=== PATIENT | male | born 1970 | race Caucasian/White ===

== ENCOUNTER 2016-08-30 23:33 | Inpatient (IN) | payer OTHER ==
[~2016-08-30] VITALS: Ht 180.3 cm; Wt 158.2 kg
[~2016-08-30 23:33] MED LIST: ALEN70TA2 PO; ASPI81TA28 PO; BUDE0.5S NEB; BUME1TAB PO; CITA20TA4 PO; DOCU100C31 PO; DOUNEB INH; FLM4 PO; FLUT1INH INH; FOLI1TAB7 PO; IPRA1AER2 INH; LOSA25TA18 PO; METH2.5T PO; OMEP20TA PO; POTA-335 PO; PRED10TA PO; SPIR25TA PO; TRIA3AER NAE; [UNRECOGNIZED DRUG - CODE] PO
[2016-08-31] VITALS (8 sets, daily range): BP systolic 107–136; BP diastolic 64–91; PULSE 78–94; TEMP 36.5–36.8; O2SAT 93–95; Ht 180.3 cm; Wt 158.2 kg
[2016-08-31] MEDS ORDERED: MoRPHine SULFATE 2 MG/ML CARP IV STA ×2 (01:09→02:09)
[2016-08-31] MEDS ORDERED: ONDANSETRON INJ 2 MG/ML 2 ML VIAL IV STA (01:09)
[2016-08-31] MEDS ORDERED: ALBUT/IPRATROP 3MG/0.5MG NEB 3 ML VIAL INH STA (01:09)
[2016-08-31] MEDS ORDERED: METHYLPREDNISOLONE IV 80 MG in SYRINGE 0 ML IV ONE (01:15)
[2016-08-31 01:21] LABS: BASO % 0.1 %; BASO ABS # 0.01 K/uL (0-0.2); COMPLETE YES; EOS % 1.6 %; HEMATOCRIT 39.9 % (42-52); IG% 0.3 %; LYMPH % 10.1 %; LYMPH ABS # 0.91 K/uL (1.2-3.4); MEAN CORPUSCULAR HEMOGLOBIN 27.2 pg (25-34); MEAN CORPUSCULAR HGB CONC 32.3 g/dl (32-36); MEAN PLATELET VOLUME 8.3 fL (7.4-10.4); MONO % 8.9 %; PLATELET COUNT 388 K/uL (130-400); RED BLOOD COUNT 4.75 M/uL (4.7-6.1); WHITE BLOOD COUNT 8.98 K/uL (4.8-10.8)
[2016-08-31 01:36] LABS: PARTIAL THROMBOPLASTIN RATIO 1.1; PROTHROMBIN TIME (PATIENT) 11.2 SECONDS (9.0-12.0)
[2016-08-31 01:39] LABS: BUN/CREATININE RATIO 14.9 (10-20); CREATININE 1.4 mg/dl (0.60-1.40); MAGNESIUM 2.4 mg/dl (1.8-2.4); POTASSIUM 3.2 mmol/L (3.5-5.1)
[2016-08-31 01:44] LABS: ALB/GLOB RATIO 0.9 (0.9-2); CKMB/CK RATIO 0.4 (0-3.0)
[2016-08-31 01:56] LABS: VEN BLD GAS O2 SATURATION 76.6 %
[2016-08-31] MEDS ORDERED: OPTIRAY 320 IV PRN (02:15)
[2016-08-31] MEDS ORDERED: POTA20TA13 PO (02:23)
[2016-08-31] MEDS ORDERED: PRD10 PO (02:23)
[2016-08-31] MEDS ORDERED: PLMINSR5 INH (02:23)
[2016-08-31] MEDS ORDERED: [UNRECOGNIZED DRUG - CODE] PO (02:23)
[2016-08-31] MEDS ORDERED: IPRASOL4 INH (02:23)
[2016-08-31] MEDS ORDERED: TRIA1SPR4 NAE (02:23)
[2016-08-31] MEDS ORDERED: CEFTRIAXONE SOD INJ 1 GM ADDVIAL IV STA (03:33)
[2016-08-31] MEDS ORDERED: LEVAQUIN 750MG / 150ML D5W IV STA (03:33)
[2016-08-31 03:59] LABS: URINE APPEARANCE CLEAR (CLEAR); URINE BILIRUBIN NEG (NEG); URINE COLOR YELLOW; URINE NITRITE NEG (NEG); URINE PH 6.5 (4.5-7.5); URINE SPECIFIC GRAVITY 1.043 (1.000-1.030); UROBILINOGEN NEG (NEG); ZZUR CULT IF INDIC CLEAN CATCH NO
[2016-08-31 04:00] LABS: MANUAL MICROSCOPIC REQUIRED? NO; REVIEW REQ? NO
--- NOTE | 2016-08-31 04:48 | History and Physical ---
History & Physical Date & Time of Service: Aug 31, 2016 at 04:48 . Chief Complaint: cough, right-sided chest / upper abdominal pain . Primary Care Physician: Andrzej Downing M.D. . History of Present Illness Source: patient, family, clinic records, hospital records 45-year-old male followed by Dr. Downing. Also followed by Pulmonary Medicine Service at [facility]. History of pulmonary sarcoidosis, sleep apnea on BiPAP, CHF, pulmonary blastomycosis, and other problems noted below. Developed sinus congestion and cough about 1 week ago. Cough productive of yellow sputum. Experiencing sweats, but no documented fever. No associated pharyngitis. Cough is severe. Tonight he experienced acute onset of right-sided chest versus right upper abdominal pain. . Past Medical/Surgical History Chronic Medical Problems: (1) CHF (congestive heart failure), NYHA class III Status: Chronic (2) Chronic respiratory failure Status: Chronic (3) Chronic right-sided congestive heart failure Status: Chronic (4) Chronic steroid use Status: Chronic (5) Depression Status: Chronic (6) Depression Status: Chronic (7) HTN (hypertension) Status: Chronic (8) HTN (hypertension) Status: Chronic (9) Hypoxemia requiring supplemental oxygen Status: Chronic (10) Immunocompromised, acquired Status: Chronic (11) Obesity Status: Chronic (12) ANGELES (obstructive sleep apnea) Status: Chronic (13) Oxygen dependent Permanent Comment: 2-4l via nc Status: Chronic (14) Pulmonary blastomycosis Status: Chronic (15) Pulmonary HTN Status: Chronic (16) Pulmonary hypertension Status: Chronic (17) Pulmonary sarcoidosis Status: Chronic (18) Right-sided heart failure Status: Chronic Surgical Problems: (1) Fingertip amputation Permanent Comment: TUFT AMPUTATION 1986 Status: Chronic (2) History of cardiac cath Status: Chronic (3) History of tympanostomy Status: Chronic (4) S/P cholecystectomy Status: Resolved (5) S/P Mohs surgery for basal cell carcinoma Status: Chronic (6) S/P tonsillectomy Status: Chronic Family History FATHER Hypercholesterolemia BROTHER Hypercholesterolemia GRANDFATHER Heart disease GRANDFATHER Heart disease Diabetes mellitus GRANDMOTHER Heart disease GRANDMOTHER Heart disease Diabetes mellitus UNCLE Sarcoidosis Social History Smoking Status: Never Smoker Alcohol Use: occasionally Drug Use: none Marital Status: single Housing status: lives alone Occupational Status: employed Immunizations History of Influenza Vaccine: Yes History of Tetanus Vaccine?: Yes Tetanus Immunization Date: Dec 24, 2010 History of Pneumococcal: Yes Pneumococcal Date: Apr 14, 2009 History of Hepatitis B Vaccine: No Multi-Drug Resistant Organisms History of MDRO: No Allergies Coded Allergies: Doxycycline (Verified Allergy, Severe, PEDRAZA, 08/31/16) Home Medications Scheduled Alendronate Sodium (Fosamax), 1 TAB PO WK Aspirin (Aspirin Ec), 81 MG PO DAILY Atovaquone (Mepron), 1,500 MG PO DAILY Budesonide (Pulmicort Respules 0.5MG/2ML), 2 ML INH BID Citalopram Hydrobromide (Citalopram Hydrobromide), 1 TAB PO DAILY Fluticasone Furoate-Vilanterol (Breo Ellipta), 1 INHA INH DAILY Folic Acid (Folvite), 1 MG PO DAILY Itraconazole (Sporanox), 300 MG PO BID Losartan Potassium (Cozaar), 25 MG PO DAILY Methotrexate Sodium (Methotrexate), 20 MG PO WK Omeprazole (Omeprazole), 1 TAB PO DAILY Potassium Chloride Microencaps (Potassium Chloride Er), 1 TAB PO DAILY Prednisone (Prednisone), 15 MG PO DAILY Spironolactone (Aldactone), 25 MG PO BID Tamsulosin HCl (Tamsulosin HCl), 0.4 MG PO DAILY Torsemide (Torsemide), 80 MG PO BID Scheduled PRN Docusate Sodium (Docusate Sodium), 100 MG PO BID PRN for Constipation Ipratropium-Albuterol (Combivent Respimat), 1 PUFFS INH Q6 PRN for SOB/Wheezing Ipratropium-Albuterol (Duoneb), 1 TREATMENT INH Q4H PRN for Shortness of Breath Triamcinolone Acetonide (Nasal (Nasacort Allergy 24Hr), 2 SPRAYS NILDA DAILY PRN for ALLERGIC REACTION Review of Systems Constitutional: + sweats, + weight loss, No fever Eyes: No diplopia ENT: + nasal symptoms, No sore throat Respiratory: + cough, + shortness of breath, + sputum, + wheezing Cardiovascular: + chest pain (as described in HPI), + edema (chronic) Abdomen: + GI bleeding, + diarrhea, + nausea, + pain (as described in HPI), + vomiting Musculoskeletal: No joint pain, No muscle pain Genitourinary - Male: No dysuria, No hematuria Endocrine: No excessive thirst, No excessive urination Hematologic / Lymphatic: + abnormal bleeding/bruising (bruises easily), No swollen lymph nodes Integumentary: No new/changing skin lesions, No rash Physical Exam Vital Signs Date Time Temp Pulse Resp B/P Pulse Ox O2 Delivery O2 Flow Rate FiO2 08/31/16 02:40 99 20 148/85 98 Room Air 08/31/16 01:52 93 08/31/16 01:39 96 Nasal Cannula 3.0 08/31/16 01:14 86 24 124/71 96 Nasal Cannula 3.0 08/31/16 01:10 96 Nasal Cannula 3.0 08/30/16 23:44 36.9 94 26 125/72 93 Nasal Cannula 3.0 General Appearance: + moderate distress, + obese Head: normocephalic, atraumatic, + pertinent finding (Cushingoid facies) Eyes: normal inspection, PERRL, EOMI, sclerae normal (conjunctivae pink) ENT: hearing grossly normal, pharynx normal Neck: supple, no adenopathy, thyroid normal, trachea midline, + pertinent finding (healed tracheostomy) Respiratory/Chest: + rhonchi (scattered), + wheezing (diffuse moderate) Cardiovascular: regular rate, rhythm, no gallop, no murmur, + pertinent finding (neck veins difficult to assess due to body habitus; 2-3+ pretibial edema) Abdomen/GI: normal bowel sounds, non tender, soft, no organomegaly, no pulsatile mass, + pertinent finding (exam limited due to obesity) Extremities/Musculoskelatal: no calf tenderness, + pedal edema, + pertinent finding (distal amputation left middle finger) Neurologic/Psych: 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 nml as tested (PERRL, EOMI), no motor/sensory deficits (motor strength grossly intact), alert, normal mood/affect, oriented x 3 Skin: normal color, warm/dry, no rash Lymphatic: no adenopathy Diagnostics Laboratory Results Results Past 24 Hours Test 08/31/16 00:50 08/31/16 01:25 08/31/16 01:32 08/31/16 01:49 Range/Units White Blood Count 8.98 4.8-10.8 K/uL Red Blood Count 4.75 4.7-6.1 M/uL Hemoglobin 12.9 14.0-18.0 g/dL Hematocrit 39.9 42-52 % Mean Corpuscular Volume 84.0 80-100 fL Mean Corpuscular Hemoglobin 27.2 25-34 pg Mean Corpuscular Hemoglobin Concent 32.3 32-36 g/dl Platelet Count 388 130-400 K/uL Mean Platelet Volume 8.3 7.4-10.4 fL Neutrophils (%) (Auto) 79.0 % Lymphocytes (%) (Auto) 10.1 % Monocytes (%) (Auto) 8.9 % Eosinophils (%) (Auto) 1.6 % Basophils (%) (Auto) 0.1 % Neutrophils # (Auto) 7.09 1.4-6.5 K/uL Lymphocytes # (Auto) 0.91 1.2-3.4 K/uL Monocytes # (Auto) 0.80 0.11-0.59 K/uL Eosinophils # (Auto) 0.14 0-0.5 K/uL Basophils # (Auto) 0.01 0-0.2 K/uL RDW Standard Deviation 59.6 36.4-46.3 fL RDW Coefficient of Variation 19.5 11.5-14.5 % Immature Granulocyte % (Auto) 0.3 % Immature Granulocyte # (Auto) 0.03 0.00-0.02 K/uL Prothrombin Time 11.2 9.0-12.0 SECONDS Prothromb Time International Ratio 1.0 0.9-1.1 Activated Partial Thromboplast Time 29.2 21.0-31.0 SECONDS Partial Thromboplastin Ratio 1.1 Sodium Level 139 136-145 mmol/L Potassium Level 3.2 3.5-5.1 mmol/L Chloride Level 96 98-107 mmol/L Carbon Dioxide Level 35 21-32 mmol/L Anion Gap 8.0 3-11 mmol/L Blood Urea Nitrogen 21 7-18 mg/dl Creatinine 1.40 0.60-1.40 mg/dl Est Creatinine Clear Calc Drug Dose 100.4 ml/min Estimated GFR () 69.3 Estimated GFR (Non- 59.8 BUN/Creatinine Ratio 14.9 10-20 Random Glucose 128 70-99 mg/dl Calcium Level 9.0 8.5-10.1 mg/dl Magnesium Level 2.4 1.8-2.4 mg/dl Total Bilirubin 0.5 0.2-1 mg/dl Aspartate Amino Transf (AST/SGOT) 40 15-37 U/L Alanine Aminotransferase (ALT/SGPT) 86 12-78 U/L Alkaline Phosphatase 49 45-117 U/L Total Creatine Kinase 433 39-308 U/L Creatine Kinase MB 1.6 0.5-3.6 ng/ml Creatine Kinase MB Ratio 0.4 0-3.0 Total Protein 8.0 6.4-8.2 gm/dl Albumin 3.7 3.4-5.0 gm/dl Globulin 4.3 2.5-4.0 gm/dl Albumin/Globulin Ratio 0.9 0.9-2 Lipase 163 73-393 U/L Bedside Troponin I 0.000 0-0.045 ng/ml [id number] Natriuretic Peptide 85 0-450 pg/ml Venous Blood pH 7.46 7.36-7.41 Venous Blood Partial Pressure CO2 53 38.0-50.0 mmHg Venous Blood Partial Pressure O2 44 mmHg Venous Blood HCO3 37 mmol/L Venous Blood Oxygen Saturation 76.6 % Venous Blood Base Excess 11.0 mmol/L Bedside Lactic Acid Venous 1.72 0.90-1.70 mmol/L Test 08/31/16 03:50 Range/Units Urine Color YELLOW Urine Appearance CLEAR CLEAR Urine pH 6.5 4.5-7.5 Urine Specific [place] 1.043 1.000-1.030 Urine Protein NEG NEG Urine Glucose (UA) NEG NEG Urine Ketones NEG NEG Urine Occult Blood TRACE NEG Urine Nitrite NEG NEG Urine Bilirubin NEG NEG Urine Urobilinogen NEG NEG Urine Leukocyte Esterase TRACE NEG Urine WBC (Auto) 1-5 0-5 /hpf Urine RBC (Auto) 5-10 0-4 /hpf Urine Hyaline Casts (Auto) 0 0-5 /lpf Urine Epithelial Cells (Auto) 5-10 0-5 /lpf Urine Bacteria (Auto) NEG NEG Microbiology Results 08/31/16 Blood Culture, Received Pending 08/31/16 Blood Culture, Received Pending Diagnostic Radiology CHEST ONE VIEW PORTABLE CLINICAL HISTORY: cough/Pain COMPARISON STUDY: 01/17/2016 FINDINGS: The heart remains enlarged. Interstitial point fibrotic changes are again evident. There is blunting of the lateral costophrenic angles. There is persistent pleural thickening. A triangular appearance of the right hilum remains stable.[ There is an opacity at the right medial lung base, likely representing a focal eventration or prominent fat pad. IMPRESSION: Cardiomegaly and persistent underlying interstitial lung disease. Persistent bilateral pleural thickening. Electronically signed by: Josafat Desir M.D. 08/31/2016 6:[address] ANGIOGRAPHY OF THE CHEST, PULMONARY EMBOLUS PROTOCOL CLINICAL HISTORY: Right anterior rib pain. History of sarcoidosis. COMPARISON STUDY: Chest CT July 19, 2014 and chest radiograph performed earlier today. TECHNIQUE: Following IV administration of 118 mL of Optiray-320, helical axial images of the chest were obtained utilizing the pulmonary embolus protocol. Maximal intensity projections and sagittal and coronal reformats were viewed on an independent 3D workstation. IV contrast was administered without complication. CT DOSE: 1008.25 mGy.cm FINDINGS: Evaluation of the pulmonary arteries is significantly compromised due to artifact on this exam. There is no central pulmonary embolus. The heart is mildly enlarged. There is no pericardial effusion. Numerous calcified mediastinal and bilateral hilar lymph nodes are present. These were shown on prior CT of July 19, 2014. A small left pleural effusion is decreased in size. A trace right pleural effusion has slightly decreased in size as well. There is a trace right pneumothorax. There are multiple old right-sided rib fractures. No acute rib fractures are identified. Innumerable ill-defined pulmonary nodules are noted. These are decreased in size and number since exam of March 18, 2015. Distortion within the lungs is noted. There is mucus or debris within the dependent aspect of the trachea and mainstem bronchi. There is no central obstructing mass. There is no left pneumothorax. No suspicious osseous lesions are present. There is fatty infiltration of the liver. A gallstone is noted within the gallbladder. IMPRESSION: 1. No central or lobar pulmonary embolus. The remainder of the pulmonary arteries are suboptimally assessed due to artifact. 2. Trace right pneumothorax. Multiple old right-sided rib fractures. No acute rib fractures identified within visualized ribs. 3. Innumerable ill-defined pulmonary nodules which have significantly improved since exam of July 19, 2014. Numerous calcified mediastinal and hilar lymph nodes. The findings are consistent with the history of sarcoidosis. 4. Fatty liver. 5. Cholelithiasis. 6. Mild bilateral pleural effusions, improved since exam of July 19, 2014. Electronically signed by: Matthew Crook M.D. 08/31/2016 7:45 AM BILIARY ULTRASOUND CLINICAL HISTORY: Right upper quadrant abdominal pain COMPARISON STUDY: 01/16/2016 FINDINGS: The pancreas was nonvisualized. The liver is of increased echogenicity, a nonspecific finding most often seen in hepatic steatosis. There is no right-sided hydronephrosis. There is a 2 cm shadowing gallstone. There is no gallbladder wall thickening. There is no pericholecystic fluid. There is no ductal dilatation. The common bile duct measures 5.5 mm. IMPRESSION: 1. Cholelithiasis. No evidence of ductal dilatation 2. Increased hepatic echogenicity, likely secondary to hepatic steatosis. Mild hepatomegaly. 3. Nonvisualization the pancreas . Electronically signed by: Josafat Desir M.D. 08/31/2016 9:58 AM . EKG EKG performed at 01:39 reviewed and demonstrated normal sinus rhythm at 80/ minute, QTC 464 ms, no acute ST or T-wave abnormalities. . Impression Assessment and Plan CHEST PAIN / PNEUMOTHORAX Acute onset of severe right-sided chest pain preceded by severe coughing. CT of chest shows small right pneumothorax, no acute rib fractures, no pulmonary embolism. Consult Pulmonary Medicine re: pneumothorax. Hold BiPAP pending Pulmonary Medicine input. Analgesics when necessary. Incentive spirometry. ? RUQ PAIN Patient describes his pain as right chest versus right infracostal. CT and ultrasound demonstrated cholelithiasis without apparent biliary tract obstruction. Transaminases are slightly elevated, nonspecific. Bilirubin and alkaline phosphatase are normal. Management of pneumothorax as discussed above. Follow. COUGH Productive cough. Apparent sinusitis + lower respiratory tract infection. Difficult to determine whether or not there any superimposed infiltrates with underlying chronic radiographic abnormalities due to sarcoidosis. Blood cultures obtained in ED. Check sputum Gram stain and culture. Levofloxacin started a few days prior to admission and will be continued. QTC is slightly prolonged and will be monitored with daily EKGs. Add piperacillin/tazobactam for broader coverage. BRONCHOSPASM IV methylprednisolone with transition back to usual maintenance dose of prednisone. Continue usual nebs. SARCOIDOSIS Steroid management as noted above. Hold methotrexate in light of acute infection. CHF Echo in January 2016 demonstrated LVEF 60-65%. Probably has combination of chronic left ventricular diastolic heart failure as well as right-sided heart failure. Difficult to assess for pulmonary edema in light of underlying chronic lung disease. Continue usual dose of torsemide and spironolactone. SLEEP APNEA / PROBABLE OBESITY HYPOVENTILATION SYNDROME Management with BiPAP at home. Will hold BiPAP in light of pneumothorax pending Pulmonary Medicine input. PULMONARY BLASTOMYCOSIS Continue itraconazole. PCP PROPHYLAXIS Immunosuppressed secondary to glucocorticoid and methotrexate therapy. Continue atovaquone. HYPOKALEMIA Serum potassium 3.2. Replace. Follow. VTE PROPHYLAXIS High risk for VTE. SQ enoxaparin. Ambulate. RESUSCITATION STATUS Full code. DISPOSITION Admit to Telemetry Unit. Expected discharge to home. Family Medicine follow-up with Dr. Downing. . VTE Prophylaxis Risk Level: Moderate Given or contraindicated: Enoxaparin (Lovenox)SQ
[2016-08-31] MEDS ORDERED: ACETAMINOPHEN 325 MG TAB PO PRN (05:00)
[2016-08-31] MEDS ORDERED: DOCUSATE SODIUM 100 MG CAP PO PRN (05:00)
[2016-08-31] MEDS ORDERED: ALBUT/IPRATROP 3MG/0.5MG NEB 3 ML VIAL INH PRN (05:00)
[2016-08-31] MEDS ORDERED: HYDROmorphone INJ 1 MG/ML SYR IV PRN (05:15)
[2016-08-31] MEDS ORDERED: BENZONATATE 100MG CAP PO PRN (05:15)
--- NOTE | 2016-08-31 06:50 | DIAGNOSTIC IMAGING REPORT ---
CHEST ONE VIEW PORTABLE CLINICAL HISTORY: cough/Pain COMPARISON STUDY: 01/17/2016 FINDINGS: The heart remains enlarged. Interstitial point fibrotic changes are again evident. There is blunting of the lateral costophrenic angles. There is persistent pleural thickening. A triangular appearance of the right hilum remains stable.[ There is an opacity at the right medial lung base, likely representing a focal eventration or prominent fat pad. IMPRESSION: Cardiomegaly and persistent underlying interstitial lung disease. Persistent bilateral pleural thickening. Electronically signed by: Josafat Desir M.D. 08/31/2016 6:48 AM Dictated Date/Time: 08/31/2016 6:46 AM
--- NOTE | 2016-08-31 07:46 | DIAGNOSTIC IMAGING REPORT ---
CT ANGIOGRAPHY OF THE CHEST, PULMONARY EMBOLUS PROTOCOL CLINICAL HISTORY: Right anterior rib pain. History of sarcoidosis. COMPARISON STUDY: Chest CT July 19, 2014 and chest radiograph performed earlier today. TECHNIQUE: Following IV administration of 118 mL of Optiray-320, helical axial images of the chest were obtained utilizing the pulmonary embolus protocol. Maximal intensity projections and sagittal and coronal reformats were viewed on an independent 3D workstation. IV contrast was administered without complication. CT DOSE: 1008.25 mGy.cm FINDINGS: Evaluation of the pulmonary arteries is significantly compromised due to artifact on this exam. There is no central pulmonary embolus. The heart is mildly enlarged. There is no pericardial effusion. Numerous calcified mediastinal and bilateral hilar lymph nodes are present. These were shown on prior CT of July 19, 2014. A small left pleural effusion is decreased in size. A trace right pleural effusion has slightly decreased in size as well. There is a trace right pneumothorax. There are multiple old right-sided rib fractures. No acute rib fractures are identified. Innumerable ill-defined pulmonary nodules are noted. These are decreased in size and number since exam of March 18, 2015. Distortion within the lungs is noted. There is mucus or debris within the dependent aspect of the trachea and mainstem bronchi. There is no central obstructing mass. There is no left pneumothorax. No suspicious osseous lesions are present. There is fatty infiltration of the liver. A gallstone is noted within the gallbladder. IMPRESSION: 1. No central or lobar pulmonary embolus. The remainder of the pulmonary arteries are suboptimally assessed due to artifact. 2. Trace right pneumothorax. Multiple old right-sided rib fractures. No acute rib fractures identified within visualized ribs. 3. Innumerable ill-defined pulmonary nodules which have significantly improved since exam of July 19, 2014. Numerous calcified mediastinal and hilar lymph nodes. The findings are consistent with the history of sarcoidosis. 4. Fatty liver. 5. Cholelithiasis. 6. Mild bilateral pleural effusions, improved since exam of July 19, 2014. Electronically signed by: Matthew Crook M.D. 08/31/2016 7:45 AM Dictated Date/Time: 08/31/2016 7:32 AM
[2016-08-31] MEDS: BUDESONIDE 0.5 MG/2 ML VIAL (PULMICORT) INH SCH ×2 (08:00→20:42)
[2016-08-31] MEDS: SPIRONOLACTONE 25 MG TAB PO SCH ×2 (08:34→15:42)
[2016-08-31] MEDS: ASPIRIN 81 MG ECTAB PO SCH (08:35)
[2016-08-31] MEDS: GUAIFENESIN 600 MG TABCR PO SCH ×2 (08:35→19:29)
[2016-08-31] MEDS: CITALOPRAM 20 MG TAB PO SCH (08:35)
[2016-08-31] MEDS: TAMSULOSIN HCL 0.4 MG CAP PO SCH (08:35)
[2016-08-31] MEDS: POTASSIUM CHLORIDE 20 MEQ TABCR PO SCH (08:35)
[2016-08-31] MEDS: PANTOprazole SOD 40 MG TAB PO SCH (08:36)
[2016-08-31] MEDS: OXYCODONE HCL IR 5 MG TAB (IMMEDIATE RELEASE) PO PRN ×3 (08:40→22:00)
[2016-08-31] MEDS ORDERED: LOSARTAN POTASSIUM 25 MG TAB PO SCH (09:00)
--- NOTE | 2016-08-31 10:00 | DIAGNOSTIC IMAGING REPORT ---
BILIARY ULTRASOUND CLINICAL HISTORY: Right upper quadrant abdominal pain COMPARISON STUDY: 01/16/2016 FINDINGS: The pancreas was nonvisualized. The liver is of increased echogenicity, a nonspecific finding most often seen in hepatic steatosis. There is no right-sided hydronephrosis. There is a 2 cm shadowing gallstone. There is no gallbladder wall thickening. There is no pericholecystic fluid. There is no ductal dilatation. The common bile duct measures 5.5 mm. IMPRESSION: 1. Cholelithiasis. No evidence of ductal dilatation 2. Increased hepatic echogenicity, likely secondary to hepatic steatosis. Mild hepatomegaly. 3. Nonvisualization the pancreas Electronically signed by: Josafat Desir M.D. 08/31/2016 9:58 AM Dictated Date/Time: 08/31/2016 9:56 AM
[2016-08-31] MEDS ORDERED: DMD20 PO (13:29)
[2016-08-31] MEDS ORDERED: [UNRECOGNIZED DRUG - OTHER] PO (13:29)
[2016-08-31] MEDS: METHYLPREDNISOLONE IV 20 MG in SYRINGE 0 ML IV SCH ×2 (13:48→21:43)
[2016-08-31] MEDS ORDERED: POTASSIUM CHLORIDE 10 MEQ TABCR PO STA (13:50)
--- NOTE | 2016-08-31 14:30 | PULMONARY CONSULTATION ---
DATE OF CONSULTATION: 08/31/2016 TIME: 01:30 p.m. REPORT OF CONSULTATION: The patient was seen in room 286 bed 2. He is a 45-year-old male who has a chief complaint of pain in the right lateral chest. The pain developed approximately 4 days ago. It became progressively worse. The pain was located in the right lower chest or upper abdominal regions. It seems to radiate around towards the back. He denied any trauma when I spoke with him initially. Subsequently, however, he mentioned that about 2 weeks ago, he was heading into was bathroom and he had somewhat of a stumble. He fell against the entrance way to the bathroom. He struck his right arm. It was enough of below that he developed a modest amount of ecchymosis in the right upper arm despite the fact that he is a large man himself. He does not recall having any pain or anything at that time. Along with the pain, he has had worsening shortness of breath. He has been getting treated for the past week or 2 with a sinus infection. Levaquin was started 5 days ago. His cough has been severe. Sometimes, it is productive. The cough and the pain together were making him very short of breath. He ultimately went to the Emergency Room late last evening. He was in the ER for many hours because there were no beds. The patient had a chest x-ray done that reported cardiomegaly with persistent underlying interstitial disease and pleural thickening. He had a CAT scan of the chest done to rule out pulmonary emboli. There was no evidence of any pulmonary emboli, although the study was perhaps limited somewhat. There was a trace right pneumothorax. Multiple old right-sided rib fractures were noted. The radiologist did not believe there were any acute rib fractures. There were innumerable nodules, which have improved since a prior scan done on 07/19/2014. Numerous calcified mediastinal and hilar lymph nodes were present compatible with sarcoidosis that he is known to have Pleural thickening or pleural effusions was noted. The patient carries a diagnosis of sarcoidosis made in 2008. He was initially treated with prednisone. Subsequently, he was treated with some immunosuppressive agent. He had been on methotrexate for a while and then that was replaced with Remicade. In 2014, the patient became very ill. He was hospitalized at [facility]. He had respiratory failure and was on the ventilator. He had to have a tracheostomy and PEG tube insertion. He was found to ultimately have blastomycosis and he had been treated with itraconazole. After discharged from [facility], he went to [facility] in [facility]. He was there for about 4 weeks. He ultimately was decannulated and had a PEG tube removed. The patient remains on prednisone 15 mg per day and he takes a relatively small bit methotrexate for the sarcoid. For the most part that has been reasonably stable for the past year or so. PAST SURGICAL HISTORY: 1. Open lung biopsy. 2. Tracheostomy. 3. PEG tube insertion. 4. Fingertip amputation. PAST MEDICAL HISTORY: 1. Hypertension. 2. Congestive heart failure. 3. Chronic respiratory failure. 4. Depression. 5. Obesity. 6. Pulmonary hypertension. 7. C. diff infection. 8. Sleep apnea as noted. 9. Sarcoidosis as noted. 10. Blastomycosis as noted. SOCIAL HISTORY: Tobacco never. ETOH -- occasional. ALLERGIES: DOXYCYCLINE. FAMILY HISTORY: Mother and she was killed by homicide. Father, living at age 70, has coronary artery disease. There is a maternal uncle, who has sarcoidosis. OCCUPATIONAL HISTORY: The patient has been on disability for about 4 years. 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 REVIEW OF SYSTEMS: The patient's energy level is relatively low. He does wear BiPAP nightly. He denies syncope or near syncope. He has been having nasal congestion and postnasal drip. This was attributed to his sinus infection. He denies any nausea or vomiting. He is not having any bowel problems. He has had this chest pain and the upper abdominal pain as mentioned. He denies any urinary symptoms. He has noticed edema recently. There have been no rashes. No lymph nodes have been present. The remainder of the review of systems is negative. Ten systems were reviewed. PHYSICAL EXAMINATION: GENERAL: Mr. Pugh is a pleasant 45-year-old male who was cooperative, alert and oriented. He looks mildly uncomfortable. VITAL SIGNS: Weight is 156.3 kilograms for a BMI of 48.1. He appears cushingoid. HEENT: Pupils were reactive. Nares were mildly congested. Mouth exam revealed a Mallampati grade 3 pharynx. NECK: He has a large neck. No lymph nodes were palpable. CHEST: Showed somewhat diminished excursions. I was pushing on the chest laterally on the right, trying to find the focal site of pain, but did not find any specifically focal area. LUNGS: Lung moser reveal some wheeze, greater on the left than the right. The respiratory rate was 20 breaths per minute. HEART: Rate was 78. It was regular. Blood pressure 134/88. Saturation was 95% on 3 liters. ABDOMEN: Markedly obese. Bowel sounds were present, but diminished. There was no tenderness to palpation. No definite mass was palpable. The patient was examined in the mostly upright position because he is uncomfortable lying back. EXTREMITIES: Revealed +2 edema of both lower extremities. There was evidence of prior partial amputation of one of his fingers. There was no cyanosis or clubbing. LABORATORY DATA: White count is 8.98. Hemoglobin 12.9. Platelets 388,000. Coags were normal. Urinalysis showed trace leukocyte esterase, trace occult blood, and 5-10 RBCs. Venous blood gas done early this morning showed a pH of 7.46 with a pCO2 of 53 and a pO2 of 44. Electrolytes show sodium 139, potassium 3.2, chloride 96, and bicarbonate 35. BUN was 21 with a creatinine of 1.4. Blood sugar was 128. AST was slightly elevated at 40 and ALT was elevated at 86. Alkaline phosphatase was 49, which is normal. CK was elevated at 433. EKG showed a sinus rhythm at 80. Nonspecific ST and T-wave changes were seen. IMPRESSIONS: 1. Acute chest pain. 2. Small right pneumothorax. 3. Sarcoidosis. 4. Obstructive sleep apnea. 5. Pleural thickening. 6. Hypokalemia. COMMENTS AND RECOMMENDATIONS: The case was discussed with Dr. Cristobal prior to seeing the patient. He was kind enough to copy for me some of the patient's records, which I reviewed specifically from the extended hospital stay as well as the recent office visit. The patient seems to have much more pain than one would anticipate from a very small pneumothorax. I would wonder if he may not have had an acute rib fracture that is not yet seen. Initially, I did not think he had any trauma, but he had some trauma at least as evidenced by the ecchymosis on his right upper arm. The issue comes up as to the use of BiPAP in a patient with a small pneumothorax. Dr. Cristobal and I both agree that for the time being we will withhold the BiPAP unless the patient has respiratory distress. He states that the pain medicine has been helping him. He is on Solu-Medrol, which I agree within the short run. He is ordered neb treatments just as ordered. I would have a tendency to perhaps order them 3-4 times per day regularly for the time being. He seems reluctant to take deep breaths and at least if he is getting DuoNeb treatments that may help him to take some deep breaths. I will also suggest incentive spirometry. We will repeat a chest x-ray tomorrow morning to make sure that the pneumothorax has not enlarged. We cannot see the pneumonia on the initial plain chest x-ray, only on the CAT scan. This has clarified the fact that it is very small. If his right-sided pain would continue, consideration could hopefully be given to doing a bone scan to rule out a fracture that may have occurred more recently. Thank you very much for asking me to assist in his care. AUGUSTINA
[2016-08-31] MEDS ORDERED: PIPERACILL/TAZOBAC CONSULT ACTIVE PRN (15:15)
[2016-08-31] MEDS ORDERED: PIPERACILL/TAZOBAC IV 4.5 GM in DEXTROSE 5% 100ML IV ONE (15:30)
[2016-08-31] MEDS: TORSEMIDE 20 MG TAB PO SCH (15:42)
--- NOTE | 2016-08-31 19:02 | Progress Note ---
Internal Med Progress Note Date of Service: Aug 31, 2016. Provider Documentation: resting on the chair comfortably denies sob says cough is much better today his chest and ruq abdominal pain is much better hemodynamics stable to continue current tx plan for repeat cxr in am and if stable to restart bipap tx appreciate pulmonary inputs. ASSESSMENT & PLAN: [] DVT PROPHYLAXIS [] DISPOSITION [] Vital Signs: Date Time Temp Pulse Resp B/P Pulse Ox O2 Delivery O2 Flow Rate FiO2 08/31/16 16:34 Nasal Cannula 3.0 08/31/16 14:46 36.8 84 18 124/72 95 08/31/16 12:27 36.6 78 20 134/88 95 Nasal Cannula 3.0 08/31/16 12:00 95 Nasal Cannula 3.0 08/31/16 08:00 Nasal Cannula 3.0 08/31/16 08:00 36.8 90 24 136/91 95 Nasal Cannula 3.0 08/31/16 06:08 36.5 91 18 134/83 94 Nasal Cannula 3.0 08/31/16 06:04 89 08/31/16 05:34 36.8 89 23 131/78 96 Nasal Cannula 3.0 08/31/16 02:40 99 20 148/85 98 Room Air 08/31/16 01:52 93 08/31/16 01:39 96 Nasal Cannula 3.0 08/31/16 01:14 86 24 124/71 96 Nasal Cannula 3.0 08/31/16 01:10 96 Nasal Cannula 3.0 08/30/16 23:44 36.9 94 26 125/72 93 Nasal Cannula 3.0 Lab Results: Results Past 24 Hours Test 08/31/16 00:50 08/31/16 01:25 08/31/16 01:32 08/31/16 01:49 Range/Units White Blood Count 8.98 4.8-10.8 K/uL Red Blood Count 4.75 4.7-6.1 M/uL Hemoglobin 12.9 14.0-18.0 g/dL Hematocrit 39.9 42-52 % Mean Corpuscular Volume 84.0 80-100 fL Mean Corpuscular Hemoglobin 27.2 25-34 pg Mean Corpuscular Hemoglobin Concent 32.3 32-36 g/dl Platelet Count 388 130-400 K/uL Mean Platelet Volume 8.3 7.4-10.4 fL Neutrophils (%) (Auto) 79.0 % Lymphocytes (%) (Auto) 10.1 % Monocytes (%) (Auto) 8.9 % Eosinophils (%) (Auto) 1.6 % Basophils (%) (Auto) 0.1 % Neutrophils # (Auto) 7.09 1.4-6.5 K/uL Lymphocytes # (Auto) 0.91 1.2-3.4 K/uL Monocytes # (Auto) 0.80 0.11-0.59 K/uL Eosinophils # (Auto) 0.14 0-0.5 K/uL Basophils # (Auto) 0.01 0-0.2 K/uL RDW Standard Deviation 59.6 36.4-46.3 fL RDW Coefficient of Variation 19.5 11.5-14.5 % Immature Granulocyte % (Auto) 0.3 % Immature Granulocyte # (Auto) 0.03 0.00-0.02 K/uL Prothrombin Time 11.2 9.0-12.0 SECONDS Prothromb Time International Ratio 1.0 0.9-1.1 Activated Partial Thromboplast Time 29.2 21.0-31.0 SECONDS Partial Thromboplastin Ratio 1.1 Sodium Level 139 136-145 mmol/L Potassium Level 3.2 3.5-5.1 mmol/L Chloride Level 96 98-107 mmol/L Carbon Dioxide Level 35 21-32 mmol/L Anion Gap 8.0 3-11 mmol/L Blood Urea Nitrogen 21 7-18 mg/dl Creatinine 1.40 0.60-1.40 mg/dl Est Creatinine Clear Calc Drug Dose 100.4 ml/min Estimated GFR () 69.3 Estimated GFR (Non- 59.8 BUN/Creatinine Ratio 14.9 10-20 Random Glucose 128 70-99 mg/dl Calcium Level 9.0 8.5-10.1 mg/dl Magnesium Level 2.4 1.8-2.4 mg/dl Total Bilirubin 0.5 0.2-1 mg/dl Aspartate Amino Transf (AST/SGOT) 40 15-37 U/L Alanine Aminotransferase (ALT/SGPT) 86 12-78 U/L Alkaline Phosphatase 49 45-117 U/L Total Creatine Kinase 433 39-308 U/L Creatine Kinase MB 1.6 0.5-3.6 ng/ml Creatine Kinase MB Ratio 0.4 0-3.0 Total Protein 8.0 6.4-8.2 gm/dl Albumin 3.7 3.4-5.0 gm/dl Globulin 4.3 2.5-4.0 gm/dl Albumin/Globulin Ratio 0.9 0.9-2 Lipase 163 73-393 U/L Bedside Troponin I 0.000 0-0.045 ng/ml YC-Mmf-G-Type Natriuretic Peptide 85 0-450 pg/ml Venous Blood pH 7.46 7.36-7.41 Venous Blood Partial Pressure CO2 53 38.0-50.0 mmHg Venous Blood Partial Pressure O2 44 mmHg Venous Blood HCO3 37 mmol/L Venous Blood Oxygen Saturation 76.6 % Venous Blood Base Excess 11.0 mmol/L Bedside Lactic Acid Venous 1.72 0.90-1.70 mmol/L Test 08/31/16 03:50 Range/Units Urine Color YELLOW Urine Appearance CLEAR CLEAR Urine pH 6.5 4.5-7.5 Urine Specific [place]lett 1.043 1.000-1.030 Urine Protein NEG NEG Urine Glucose (UA) NEG NEG Urine Ketones NEG NEG Urine Occult Blood TRACE NEG Urine Nitrite NEG NEG Urine Bilirubin NEG NEG Urine Urobilinogen NEG NEG Urine Leukocyte Esterase TRACE NEG Urine WBC (Auto) 1-5 0-5 /hpf Urine RBC (Auto) 5-10 0-4 /hpf Urine Hyaline Casts (Auto) 0 0-5 /lpf Urine Epithelial Cells (Auto) 5-10 0-5 /lpf Urine Bacteria (Auto) NEG NEG Microbiology Results 08/31/16 Blood Culture, Received Pending 08/31/16 Blood Culture, Received Pending
[2016-08-31] MEDS: ITRACONAZOLE 10 MG/ML PO SCH (19:29)
[2016-08-31] MEDS: ENOXAPARIN 40 MG/0.4 ML SYR SQ SCH (19:54)
[2016-08-31] MEDS: PIPERACILL/TAZOBAC IV 4.5 GM in DEXTROSE 5% 100ML 100 ML IV SCH (19:54)
[2016-09-01] VITALS (11 sets, daily range): BP systolic 102–156; BP diastolic 72–85; PULSE 76–107; TEMP 36.3–36.5; O2SAT 92–97
--- NOTE | 2016-09-01 03:35 | EMERGENCY ROOM VISIT NOTE ---
ED Visit Note First contact with patient: 00:59 I have personally seen and evaluated the patient with the PA. I agree with the diagnosis and management decisions and have been personally involved in the case. Please see Nathan Alexander PA-C's notes for further details of the history, physical and visit.
[2016-09-01] MEDS: PIPERACILL/TAZOBAC IV 4.5 GM in DEXTROSE 5% 100ML 100 ML IV SCH ×3 (03:43→20:13)
[2016-09-01] MEDS: METHYLPREDNISOLONE IV 20 MG in SYRINGE 0 ML IV SCH ×3 (06:04→22:06)
[2016-09-01] MEDS: LEVOFLOXACIN / D5W 750 MG in PREMIXED IN D5W 150 ML IV SCH (06:04)
[2016-09-01 06:25] LABS: COMPLETE YES; HEMATOCRIT 40.3 % (42-52); IG% 0.1 %; LYMPH % 3.7 %; LYMPH ABS # 0.52 K/uL (1.2-3.4); MEAN CELL VOLUME 85.7 fL (80-100); MEAN CORPUSCULAR HGB CONC 31.5 g/dl (32-36); MEAN PLATELET VOLUME 8.6 fL (7.4-10.4); MONO % 5.7 %; NEUT % 90.5 %; PLATELET COUNT 426 K/uL (130-400)
[2016-09-01 06:57] LABS: ALB/GLOB RATIO 0.8 (0.9-2); BUN/CREATININE RATIO 17.4 (10-20); CALCIUM 9.5 mg/dl (8.5-10.1); CREATININE 1.6 mg/dl (0.60-1.40); MAGNESIUM 2.6 mg/dl (1.8-2.4)
[2016-09-01] MEDS: BUDESONIDE 0.5 MG/2 ML VIAL (PULMICORT) INH SCH ×2 (07:08→20:40)
[2016-09-01] MEDS: FLUTICASONE FUROATE-VILANTEROL 60 PUFFS INH INH SCH (07:23)
[2016-09-01] MEDS: PANTOprazole SOD 40 MG TAB PO SCH (07:24)
[2016-09-01] MEDS: CITALOPRAM 20 MG TAB PO SCH (07:24)
[2016-09-01] MEDS: GUAIFENESIN 600 MG TABCR PO SCH ×2 (07:24→20:12)
[2016-09-01] MEDS: POTASSIUM CHLORIDE 20 MEQ TABCR PO SCH (07:25)
[2016-09-01] MEDS: ATOVAQUONE 750 MG/5 ML UDC PO SCH ×2 (07:25→20:13)
[2016-09-01] MEDS: TAMSULOSIN HCL 0.4 MG CAP PO SCH (07:26)
[2016-09-01] MEDS: ITRACONAZOLE 10 MG/ML PO SCH ×2 (07:26→20:16)
[2016-09-01] MEDS: ASPIRIN 81 MG ECTAB PO SCH (07:26)
--- NOTE | 2016-09-01 08:10 | DIAGNOSTIC IMAGING REPORT ---
CHEST 2 VIEWS ROUTINE CLINICAL HISTORY: Follow-up pneumothorax. Sarcoidosis. COMPARISON STUDY: Chest radiograph and chest CT August 31, 2016. FINDINGS: The trace right pneumothorax shown on CT of August 31, 2016 is not visualized on this exam. Trace bilateral pleural effusions are unchanged. Mild cardiomegaly is unchanged. Diffuse reticulonodular interstitial thickening is unchanged. IMPRESSION: 1. No pneumothorax identified. 2. No change in diffuse reticulonodular interstitial thickening consistent with known sarcoidosis. Electronically signed by: Matthew Crook M.D. 09/01/2016 8:09 AM Dictated Date/Time: 09/01/2016 8:06 AM
[2016-09-01] MEDS: OXYCODONE HCL IR 5 MG TAB (IMMEDIATE RELEASE) PO PRN ×2 (10:08→20:42)
[2016-09-01] MEDS ORDERED: COUGH DROP (SUGAR FREE) LOZ 24 LOZ/1 BOX PO PRN (17:15)
--- NOTE | 2016-09-01 18:17 | PULMONARY PROGRESS NOTE ---
DATE: 09/01/2016 TIME: 5:30 p.m. SUBJECTIVE: The patient is somewhat less short of breath today. He generally feels better. The pain on the right side of the upper abdomen and lower chest is more tolerable. It still is severe when he coughs. The pain clearly seems to be musculoskeletal. The CAT scan of the chest had suggested old rib fractures on the right. The patient does not recall ever having been told of rib fractures in the past. His appetite is good. He slept reasonably well considering he was not wearing his BiPAP last night. OBJECTIVE: GENERAL: The patient looked fairly comfortable at rest. VITAL SIGNS: Temperature is 36.4. He has not had any fevers since admission. He still appears Cushingoid. Blood pressure 117/73. Heart rate is 86 per minute. Respiratory rate is 20 breaths per minute. Scattered rhonchi are heard bilaterally, but they are not as intense as yesterday. Saturation is 95% on 3 liters. NECK: He has a large neck. CHEST: He is generally tender to palpation on the right lower chest area but not with focality. ABDOMEN: Obese. It was soft and nontender. Bowel sounds were present. EXTREMITIES: Revealed +2 edema of both lower extremities. LABORATORY DATA: White count today was increased to 13.9. Hemoglobin is 12.7. Platelets are 426,000, which are increased from yesterday at 388,000. Electrolytes show sodium 137, potassium 4.0, chloride 95, bicarbonate 35. BUN is 28 with a creatinine of 1.6. Yesterday, the BUN was 21 with a creatinine of 1.4. Blood sugar was 160. Magnesium was slightly elevated at 2.6. Liver functions today were improved. The AST decreased from 40 down to 34 and ALT decreased from 86 to 70. IMPRESSIONS: 1. Chest pain. 2. Small right pneumothorax. 3. Sarcoidosis. 4. Obstructive sleep apnea. 5. Pleural thickening. COMMENTS: The patient is clinically somewhat improved. I believe he can restart his BiPAP. His family is bringing his own machine in. We will do another x-ray tomorrow morning. Today's x-ray did not show any pneumothorax. We would continue with his other medications.
--- NOTE | 2016-09-01 19:54 | Progress Note ---
Internal Med Progress Note Date of Service: Sep 01, 2016. Provider Documentation: resting on the chair comfortably says having cough which exacerbates his rib pain afebrile no sob some ticklishness in throat eating ok Exam: General-alert and oriented x 3 Not in distress. obese ENT-normal hearing Neck-no neck masses Lungs-cta b/l no wheezing no crackles Heart-s1 and s2 heard regular rate and rhythm no murmurs' Abdomen-soft bowel sounds present non tender no distension Extremities-no edema no erythema Neuro-alert and awake moves extremities ASSESSMENT & PLAN: CHEST PAIN / PNEUMOTHORAX Acute onset of severe right-sided chest pain preceded by severe coughing. CT of chest showing small right pneumothorax old rib fractures, no pulmonary embolism. Consulted Pulmonary Medicine Bipap was held repeat cxr today no findings of pneumothorax restarted bipap today' to repeat cxr in am will monitor ? RUQ PAIN Patient describes his pain as right chest versus right infracostal. CT and ultrasound demonstrated cholelithiasis without apparent biliary tract obstruction. says pain is more while coughing will monitor COUGH Productive cough. Apparent sinusitis + lower respiratory tract infection. Difficult to determine whether or not there any superimposed infiltrates with underlying chronic radiographic abnormalities due to sarcoidosis. on Levaquin and Zosyn,. No qt prolongation on repat ekg' will f/u cx BRONCHOSPASM On IV methylprednisolone will taper back soon to maintenance dose of prednisone. Continue usual nebs. SARCOIDOSIS Steroid management as noted above. Holding methotrexate in light of acute infection. CHF Echo in January 2016 demonstrated LVEF 60-65%. Hx of chronic left ventricular diastolic heart failure as well as right-sided heart failure. Difficult to assess for pulmonary edema in light of underlying chronic lung disease. hold diuretics for arf SLEEP APNEA / PROBABLE OBESITY HYPOVENTILATION SYNDROME restarted bipap today. PULMONARY BLASTOMYCOSIS Continue itraconazole. PCP PROPHYLAXIS Immunosuppressed secondary to glucocorticoid and methotrexate therapy. Continue atovaquone. HYPOKALEMIA Serum potassium 3.2. Replace. Follow. ARF cr 1.6 today holding a diuretics will f/u labs VTE PROPHYLAXIS lovenox ambulation DISPOSITION to be determined Vital Signs: Date Time Temp Pulse Resp B/P Pulse Ox O2 Delivery O2 Flow Rate FiO2 09/01/16 16:00 95 Room Air 3.0 09/01/16 15:04 36.4 86 20 117/73 94 Nasal Cannula 2.0 09/01/16 12:00 95 Room Air 3.0 09/01/16 11:52 36.3 92 22 128/80 92 Nasal Cannula 2.0 09/01/16 08:00 95 Room Air 3.0 09/01/16 07:55 36.3 84 20 146/72 95 Room Air 09/01/16 07:10 86 18 93 Nasal Cannula 3.0 09/01/16 04:00 Nasal Cannula 3.0 09/01/16 03:08 36.4 76 20 102/75 92 Nasal Cannula 3.0 09/01/16 00:00 Nasal Cannula 3.0 08/31/16 23:18 36.5 80 20 107/64 95 Nasal Cannula 2.0 08/31/16 20:43 94 18 95 Nasal Cannula 3.0 08/31/16 20:00 95 Nasal Cannula 3.0 08/31/16 20:00 36.5 94 16 121/69 93 Nasal Cannula 3.0 Lab Results: Results Past 24 Hours Test 09/01/16 05:46 Range/Units White Blood Count 13.90 4.8-10.8 K/uL Red Blood Count 4.70 4.7-6.1 M/uL Hemoglobin 12.7 14.0-18.0 g/dL Hematocrit 40.3 42-52 % Mean Corpuscular Volume 85.7 80-100 fL Mean Corpuscular Hemoglobin 27.0 25-34 pg Mean Corpuscular Hemoglobin Concent 31.5 32-36 g/dl Platelet Count 426 130-400 K/uL Mean Platelet Volume 8.6 7.4-10.4 fL Neutrophils (%) (Auto) 90.5 % Lymphocytes (%) (Auto) 3.7 % Monocytes (%) (Auto) 5.7 % Eosinophils (%) (Auto) 0.0 % Basophils (%) (Auto) 0.0 % Neutrophils # (Auto) 12.57 1.4-6.5 K/uL Lymphocytes # (Auto) 0.52 1.2-3.4 K/uL Monocytes # (Auto) 0.79 0.11-0.59 K/uL Eosinophils # (Auto) 0.00 0-0.5 K/uL Basophils # (Auto) 0.00 0-0.2 K/uL RDW Standard Deviation 61.2 36.4-46.3 fL RDW Coefficient of Variation 19.5 11.5-14.5 % Immature Granulocyte % (Auto) 0.1 % Immature Granulocyte # (Auto) 0.02 0.00-0.02 K/uL Sodium Level 137 136-145 mmol/L Potassium Level 4.0 3.5-5.1 mmol/L Chloride Level 95 98-107 mmol/L Carbon Dioxide Level 35 21-32 mmol/L Anion Gap 7.0 3-11 mmol/L Blood Urea Nitrogen 28 7-18 mg/dl Creatinine 1.60 0.60-1.40 mg/dl Est Creatinine Clear Calc Drug Dose 87.9 ml/min Estimated GFR () 59.0 Estimated GFR (Non- 50.9 BUN/Creatinine Ratio 17.4 10-20 Random Glucose 160 70-99 mg/dl Calcium Level 9.5 8.5-10.1 mg/dl Magnesium Level 2.6 1.8-2.4 mg/dl Total Bilirubin 0.7 0.2-1 mg/dl Aspartate Amino Transf (AST/SGOT) 34 15-37 U/L Alanine Aminotransferase (ALT/SGPT) 70 12-78 U/L Alkaline Phosphatase 49 45-117 U/L Total Protein 8.2 6.4-8.2 gm/dl Albumin 3.6 3.4-5.0 gm/dl Globulin 4.6 2.5-4.0 gm/dl Albumin/Globulin Ratio 0.8 0.9-2 Microbiology Results 09/01/16 Gram Stain - Final, Resulted 09/01/16 Sputum Culture, Resulted Pending
[2016-09-01] MEDS ORDERED: GUAIFENESIN/CODEINE 100MG/10MG 5ML UDC PO PRN (20:00)
[2016-09-01] MEDS: ENOXAPARIN 40 MG/0.4 ML SYR SQ SCH (20:15)
[2016-09-02] VITALS (7 sets, daily range): BP systolic 101–154; BP diastolic 54–82; PULSE 70–99; TEMP 36.3–37.1; O2SAT 91–97
[2016-09-02] MEDS: PIPERACILL/TAZOBAC IV 4.5 GM in DEXTROSE 5% 100ML 100 ML IV SCH (04:10)
[2016-09-02 06:06] LABS: COMPLETE YES; EOS % 0.1 %; HEMATOCRIT 35.8 % (42-52); IG% 0.2 %; LYMPH % 3.8 %; LYMPH ABS # 0.43 K/uL (1.2-3.4); MEAN CELL VOLUME 83.6 fL (80-100); MEAN CORPUSCULAR HEMOGLOBIN 26.6 pg (25-34); MEAN CORPUSCULAR HGB CONC 31.8 g/dl (32-36); MEAN PLATELET VOLUME 8.4 fL (7.4-10.4); MONO % 6.1 %; NEUT % 89.8 %; PLATELET COUNT 394 K/uL (130-400); RED BLOOD COUNT 4.28 M/uL (4.7-6.1); WHITE BLOOD COUNT 11.19 K/uL (4.8-10.8)
[2016-09-02] MEDS: LEVOFLOXACIN / D5W 750 MG in PREMIXED IN D5W 150 ML IV SCH (06:06)
[2016-09-02] MEDS: METHYLPREDNISOLONE IV 20 MG in SYRINGE 0 ML IV SCH ×3 (06:06→22:20)
[2016-09-02 06:36] LABS: BUN/CREATININE RATIO 20.5 (10-20); CALCIUM 8.9 mg/dl (8.5-10.1); CREATININE 1.3 mg/dl (0.60-1.40); MAGNESIUM 2.6 mg/dl (1.8-2.4); POTASSIUM 3.7 mmol/L (3.5-5.1)
[2016-09-02] MEDS: BUDESONIDE 0.5 MG/2 ML VIAL (PULMICORT) INH SCH ×2 (07:53→20:00)
[2016-09-02] MEDS: PANTOprazole SOD 40 MG TAB PO SCH (08:12)
[2016-09-02] MEDS: TAMSULOSIN HCL 0.4 MG CAP PO SCH (08:12)
[2016-09-02] MEDS: ATOVAQUONE 750 MG/5 ML UDC PO SCH (08:13)
[2016-09-02] MEDS: ASPIRIN 81 MG ECTAB PO SCH (08:14)
[2016-09-02] MEDS: CITALOPRAM 20 MG TAB PO SCH (08:14)
[2016-09-02] MEDS: GUAIFENESIN 600 MG TABCR PO SCH ×2 (08:14→19:36)
[2016-09-02] MEDS: ITRACONAZOLE 10 MG/ML PO SCH ×2 (08:16→19:35)
[2016-09-02] MEDS: POTASSIUM CHLORIDE 20 MEQ TABCR PO SCH (08:16)
[2016-09-02] MEDS: FLUTICASONE FUROATE-VILANTEROL 60 PUFFS INH INH SCH (08:16)
--- NOTE | 2016-09-02 08:27 | DIAGNOSTIC IMAGING REPORT ---
TWO VIEW CHEST CLINICAL HISTORY: Follow-up pneumothorax is seen by CT. History of sarcoidosis. FINDINGS: PA and lateral chest radiographs are compared to study dated 09/01/2016 and correlated with chest CT dated 08/31/2016. The heart is enlarged. The pulmonary vasculature is noncongested. Diffuse reticulonodular interstitial thickening is similar to previous. There is no evidence of superimposed airspace consolidation. Foci of scarring are identified in the upper lungs. Small pleural effusions are noted on the lateral view. Additional subpleural densities are consistent with subpleural fat deposition within correlated with the recent chest CT. There is no pneumothorax. The skeletal structures appear osteopenic. The bony thorax appears intact. IMPRESSION: 1. There is no pneumothorax identified by chest x-ray. 2. Cardiomegaly without radiographic evidence of congestive failure. 3. Diffuse reticulonodular interstitial changes are similar to previous and consistent the reported history of sarcoidosis. 4. There is no evidence of superimposed airspace consolidation indicating pneumonia. Trace pleural effusions are identified. Electronically signed by: Demetrius Pettit M.D. 09/02/2016 8:25 AM Dictated Date/Time: 09/02/2016 8:22 AM
[2016-09-02] MEDS: OXYCODONE HCL IR 5 MG TAB (IMMEDIATE RELEASE) PO PRN (09:44)
--- NOTE | 2016-09-02 11:34 | Progress Note ---
Internal Med Progress Note Date of Service: Sep 02, 2016. Provider Documentation: resting on the chair comfortably cough is better and his chest pain is much better ambulating ok moved bowels slept ok denies any other complaints Exam: General-alert and oriented x 3 Not in distress. obese ENT-normal hearing Neck-no neck masses Lungs-cta b/l no wheezing no crackles Heart-s1 and s2 heard regular rate and rhythm no murmurs' Abdomen-soft bowel sounds present non tender no distension Extremities-no edema no erythema Neuro-alert and awake moves extremities ASSESSMENT & PLAN: CHEST PAIN / PNEUMOTHORAX Acute onset of severe right-sided chest pain preceded by severe coughing. CT of chest showing small right pneumothorax old rib fractures, no pulmonary embolism. Consulted Pulmonary Medicine Bipap was held repeat cxr today no findings of pneumothorax restarted bipap yesterday to repeat cxr today unremarkable will monitor ? RUQ PAIN Patient describes his pain as right chest versus right infracostal. CT and ultrasound demonstrated cholelithiasis without apparent biliary tract obstruction. says pain is more while coughing improving COUGH Productive cough. Apparent sinusitis + lower respiratory tract infection. Difficult to determine whether or not there any superimposed infiltrates with underlying chronic radiographic abnormalities due to sarcoidosis. on Levaquin and Zosyn,. No qt prolongation on repat ekg' change abx to po Levaquin BRONCHOSPASM On IV methylprednisolone will taper back soon to maintenance dose of prednisone. Continue usual nebs. SARCOIDOSIS Steroid management as noted above. Holding methotrexate in light of acute infection. CHF Echo in January 2016 demonstrated LVEF 60-65%. Hx of chronic left ventricular diastolic heart failure as well as right-sided heart failure. Difficult to assess for pulmonary edema in light of underlying chronic lung disease. will monitor SLEEP APNEA / PROBABLE OBESITY HYPOVENTILATION SYNDROME restarted bipap PULMONARY BLASTOMYCOSIS Continue itraconazole. PCP PROPHYLAXIS Immunosuppressed secondary to glucocorticoid and methotrexate therapy. Continue atovaquone. HYPOKALEMIA Serum potassium 3.2. Replace. Follow. ARF cr 1.6 09/01/16 resolved restarted diuretics will f/u labs VTE PROPHYLAXIS Lovenox ambulation DISPOSITION possible d/c in am if stable pt/ot Vital Signs: Date Time Temp Pulse Resp B/P Pulse Ox O2 Delivery O2 Flow Rate FiO2 09/02/16 08:00 Nasal Cannula 3.0 09/02/16 07:55 37.1 92 22 120/73 97 Nasal Cannula 3.0 09/02/16 04:00 BiPAP 6.0 09/02/16 04:00 36.9 72 18 111/54 91 CPAP 09/02/16 00:32 36.8 83 20 101/59 92 CPAP 09/02/16 00:00 BiPAP 6.0 09/01/16 20:40 83 18 97 Nasal Cannula 3.0 09/01/16 20:00 36.5 94 20 146/85 93 Nasal Cannula 3.0 09/01/16 20:00 93 Nasal Cannula 3.0 09/01/16 19:58 36.5 107 20 156/81 94 Nasal Cannula 2.5 09/01/16 16:00 95 Room Air 3.0 09/01/16 15:04 36.4 86 20 117/73 94 Nasal Cannula 2.0 09/01/16 12:00 95 Room Air 3.0 09/01/16 11:52 36.3 92 22 128/80 92 Nasal Cannula 2.0 Lab Results: Results Past 24 Hours Test 09/02/16 05:16 Range/Units White Blood Count 11.19 4.8-10.8 K/uL Red Blood Count 4.28 4.7-6.1 M/uL Hemoglobin 11.4 14.0-18.0 g/dL Hematocrit 35.8 42-52 % Mean Corpuscular Volume 83.6 80-100 fL Mean Corpuscular Hemoglobin 26.6 25-34 pg Mean Corpuscular Hemoglobin Concent 31.8 32-36 g/dl Platelet Count 394 130-400 K/uL Mean Platelet Volume 8.4 7.4-10.4 fL Neutrophils (%) (Auto) 89.8 % Lymphocytes (%) (Auto) 3.8 % Monocytes (%) (Auto) 6.1 % Eosinophils (%) (Auto) 0.1 % Basophils (%) (Auto) 0.0 % Neutrophils # (Auto) 10.05 1.4-6.5 K/uL Lymphocytes # (Auto) 0.43 1.2-3.4 K/uL Monocytes # (Auto) 0.68 0.11-0.59 K/uL Eosinophils # (Auto) 0.01 0-0.5 K/uL Basophils # (Auto) 0.00 0-0.2 K/uL RDW Standard Deviation 59.4 36.4-46.3 fL RDW Coefficient of Variation 19.7 11.5-14.5 % Immature Granulocyte % (Auto) 0.2 % Immature Granulocyte # (Auto) 0.02 0.00-0.02 K/uL Sodium Level 139 136-145 mmol/L Potassium Level 3.7 3.5-5.1 mmol/L Chloride Level 96 98-107 mmol/L Carbon Dioxide Level 35 21-32 mmol/L Anion Gap 8.0 3-11 mmol/L Blood Urea Nitrogen 27 7-18 mg/dl Creatinine 1.30 0.60-1.40 mg/dl Est Creatinine Clear Calc Drug Dose 108.1 ml/min Estimated GFR () 75.8 Estimated GFR (Non- 65.4 BUN/Creatinine Ratio 20.5 10-20 Random Glucose 171 70-99 mg/dl Calcium Level 8.9 8.5-10.1 mg/dl Magnesium Level 2.6 1.8-2.4 mg/dl
[2016-09-02] MEDS: TORSEMIDE 20 MG TAB PO SCH (17:37)
[2016-09-02] MEDS: SPIRONOLACTONE 25 MG TAB PO SCH (17:37)
--- NOTE | 2016-09-02 18:40 | PULMONARY PROGRESS NOTE ---
DATE: 09/02/2016 TIME: 6:10 p.m. SUBJECTIVE: The patient's right-sided chest pain is moderately improved. It is not as sharp as it had been previously. His breathing likewise is also improved. He is less short of breath. His cough is also less than before. He feels that his mucus in the back of his throat is thick. He has been getting Mucinex in the hospital. He asked me if I thought he should continue this when he goes home and I said yes. I felt it was worth giving him a trial for a period of a few weeks. OBJECTIVE: GENERAL: The patient looked much more comfortable than he did upon admission. The patient appears cushingoid. VITAL SIGNS: He is afebrile. The maximum temperature in the last 24 hours is 37.1. NECK: He has a very large neck. HEART: Rate is 99. Blood pressure 154/82. LUNGS: Lung moser reveal scattered rhonchi bilaterally. His respiratory rate was 18 breaths per minute and not labored. Saturation was 94% on 3 liters. ABDOMEN: Obese. LABORATORY DATA: White count was 11.19. Hemoglobin 11.4. Platelet is 394,000. Electrolytes show sodium 139, potassium 3.7, chloride 96, bicarb 35. BUN is 27 with a creatinine of 1.3. This reflects improvement from yesterday when the creatinine had been 1.6. Random blood sugar was 171. The patient had a chest x-ray this morning. It was unchanged. There was no evidence of pneumothorax. He tolerated his own BiPAP well. IMPRESSIONS: 1. Chest pain -- likely musculoskeletal. 2. Right pneumothorax -- small. 3. Sarcoidosis. 4. Obstructive sleep apnea. 5. Pleural thickening. COMMENTS AND RECOMMENDATIONS: I spoke with the patient about being on the itraconazole. He states he actually has been taking that for much of the last 2 years, although he did have a trial off of the itraconazole for a while. He is followed by infectious disease at [facility]. He is continuing to improve readily. I would anticipate he may be ready for discharge tomorrow. The patient already has a number of Levaquin tablets that he had before coming to the hospital, that likely would suffice for him. I believe his steroids can be switched over to oral, starting tomorrow. The case was discussed with Dr. Rose.
[2016-09-02] MEDS: ENOXAPARIN 40 MG/0.4 ML SYR SQ SCH (19:37)
[2016-09-03 00:29] VITALS: BP 109/69; PULSE 96; TEMP 36.3; O2SAT 93
[2016-09-03 04:35] VITALS: BP 104/55; PULSE 73; TEMP 36.3; O2SAT 94
[2016-09-03 07:30] VITALS: BP 139/76; PULSE 77; TEMP 36.3; O2SAT 96
[2016-09-03 07:40] VITALS: PULSE 83; O2SAT 92
[2016-09-03 07:57] LABS: COMPLETE YES; IG% 0.2 %; LYMPH % 5.3 %; LYMPH ABS # 0.45 K/uL (1.2-3.4); MEAN CORPUSCULAR HEMOGLOBIN 26.2 pg (25-34); MEAN CORPUSCULAR HGB CONC 31.6 g/dl (32-36); MEAN PLATELET VOLUME 8.4 fL (7.4-10.4); MONO % 8.7 %; NEUT % 85.8 %; PLATELET COUNT 404 K/uL (130-400); RED BLOOD COUNT 4.46 M/uL (4.7-6.1); WHITE BLOOD COUNT 8.42 K/uL (4.8-10.8)
[2016-09-03] MEDS: BUDESONIDE 0.5 MG/2 ML VIAL (PULMICORT) INH SCH (07:58)
[2016-09-03] MEDS: FLUTICASONE FUROATE-VILANTEROL 60 PUFFS INH INH SCH (08:19)
[2016-09-03] MEDS: GUAIFENESIN 600 MG TABCR PO SCH (08:19)
[2016-09-03] MEDS: ASPIRIN 81 MG ECTAB PO SCH (08:20)
[2016-09-03] MEDS: TAMSULOSIN HCL 0.4 MG CAP PO SCH (08:20)
[2016-09-03] MEDS: CITALOPRAM 20 MG TAB PO SCH (08:20)
[2016-09-03] MEDS: ATOVAQUONE 750 MG/5 ML UDC PO SCH (08:20)
[2016-09-03] MEDS: TORSEMIDE 20 MG TAB PO SCH (08:20)
[2016-09-03] MEDS: SPIRONOLACTONE 25 MG TAB PO SCH (08:21)
[2016-09-03] MEDS: POTASSIUM CHLORIDE 20 MEQ TABCR PO SCH (08:21)
[2016-09-03] MEDS: PANTOprazole SOD 40 MG TAB PO SCH (08:22)
[2016-09-03] MEDS: ITRACONAZOLE 10 MG/ML PO SCH (08:22)
--- NOTE | 2016-09-03 08:29 | DIAGNOSTIC IMAGING REPORT ---
CHEST ONE VIEW PORTABLE CLINICAL HISTORY: cough, sarcoidosis, right pneumothorax pain COMPARISON STUDY: 09/02/2016 FINDINGS: Stable cardiomegaly. Emphysematous change. Chronic basilar fibrotic change. Potential early congestive failure. Mildly progressive bibasilar interstitial change. IMPRESSION: Cardiomegaly with findings of mild congestive failure. No evidence of pneumothorax. Electronically signed by: Shabbir Walters M.D. 09/03/2016 8:28 AM Dictated Date/Time: 09/03/2016 8:27 AM
[2016-09-03 08:39] LABS: BUN/CREATININE RATIO 21.1 (10-20); CALCIUM 8.7 mg/dl (8.5-10.1); CREATININE 1.3 mg/dl (0.60-1.40); MAGNESIUM 2.6 mg/dl (1.8-2.4); POTASSIUM 3.6 mmol/L (3.5-5.1)
[2016-09-03] MEDS ORDERED: LEVOFLOXACIN 750 MG TAB PO SCH (11:00)
[2016-09-03 11:26] VITALS: BP 119/75; PULSE 87; TEMP 36.7; O2SAT 95
[2016-09-03] MEDS ORDERED: LVQ750 PO ×2 (13:30→13:44)
[2016-09-03] MEDS ORDERED: LCTX PO ×2 (13:30→13:44)
[2016-09-03] MEDS ORDERED: GUAISYP4 PO ×2 (13:30→13:44)
[2016-09-03] MEDS ORDERED: PRD10 PO ×2 (13:30→13:44)
--- NOTE | 2016-09-03 13:32 | Discharge Instructions ---
Discharge Instructions Date of Service Sep 03, 2016. Admission Reason for Admission: Pneumothorax, Sarcoidosis Discharge Discharge Diagnosis / Problem: PNEUMOTHOARX, COUGH Discharge Goals Goal(s): Decrease discomfort, Improve function Activity Recommendations Activity Limitations: resume your previous activity . Instructions / Follow-Up Instructions / Follow-Up FOLLOWUP WITH FAMILY DOCTOR ON September AT 10:50AM FOLLOWUP WITH PULMONARY SCHEDULED. Current Hospital Diet Patient's current hospital diet: Regular Diet Discharge Diet Recommended Diet: AHA Diet (Heart Healthy) Pending Studies Studies pending at discharge: no Medical Emergencies . Who to Call and When: Medical Emergencies: If at any time you feel your situation is an emergency, please call 911 immediately. . Non-Emergent Contact Non-Emergency issues call your: Primary Care Provider . . "Provider Documentation" section prepared by Trell Rose. VTE Core Measure Inpt VTE Proph given/why not?: Enoxaparin (Lovenox)SQ
[2016-09-03 13:37] VITALS: BP 119/75; PULSE 87; TEMP 36.7; O2SAT 95
[2016-09-03] MEDS ORDERED: GFNSR600 PO ×2 (13:40→13:44)
--- NOTE | 2016-09-03 19:23 | Progress Note ---
Internal Med Progress Note Date of Service: Sep 03, 2016. Provider Documentation: resting on the chair comfortably cough is much better and his chest pain is also much better ambulating ok afebrile ok to go home Exam: General-alert and oriented x 3 Not in distress. obese ENT-normal hearing Neck-no neck masses Lungs-cta b/l no wheezing no crackles Heart-s1 and s2 heard regular rate and rhythm no murmurs' Abdomen-soft bowel sounds present non tender no distension Extremities-no edema no erythema Neuro-alert and awake moves extremities ASSESSMENT & PLAN: CHEST PAIN / PNEUMOTHORAX Acute onset of severe right-sided chest pain preceded by severe coughing. CT of chest showing small right pneumothorax old rib fractures, no pulmonary embolism. Consulted Pulmonary Medicine Bipap was held repeat cxr next day no findings of pneumothorax and restarted bipap which he tolerated well repeat cxr again next day was unremarkable stable ? RUQ PAIN Patient describes his pain as right chest versus right infracostal. CT and ultrasound demonstrated cholelithiasis without apparent biliary tract obstruction. says pain is more while coughing improving f/u with pcp COUGH Productive cough. Apparent sinusitis + lower respiratory tract infection. Difficult to determine whether or not there any superimposed infiltrates with underlying chronic radiographic abnormalities due to sarcoidosis. on Levaquin and Zosyn,. No qt prolongation on repat ekg' change abx to po Levaquin improving f/u with pcp BRONCHOSPASM On IV methylprednisolone will taper back soon to maintenance dose of prednisone. Continue usual nebs. SARCOIDOSIS Steroid management as noted above. Holding methotrexate in light of acute infection. restarted at discharge CHF Echo in January 2016 demonstrated LVEF 60-65%. Hx of chronic left ventricular diastolic heart failure as well as right-sided heart failure. Difficult to assess for pulmonary edema in light of underlying chronic lung disease. stable SLEEP APNEA / PROBABLE OBESITY HYPOVENTILATION SYNDROME restarted bipap PULMONARY BLASTOMYCOSIS Continue itraconazole. PCP PROPHYLAXIS Immunosuppressed secondary to glucocorticoid and methotrexate therapy. Continue atovaquone. HYPOKALEMIA Serum potassium 3.2. Replace. Follow. ARF cr 1.6 09/01/16 resolved restarted diuretics will f/u labs discharged home Vital Signs: Date Time Temp Pulse Resp B/P Pulse Ox O2 Delivery O2 Flow Rate FiO2 09/03/16 13:37 36.7 87 20 95 Nasal Cannula 09/03/16 12:00 Nasal Cannula 3.0 3/31/17 11:26 36.7 87 20 119/75 95 Nasal Cannula 3.0 09/03/16 08:00 Nasal Cannula 3.0 09/03/16 07:40 83 18 92 Nasal Cannula 3.0 09/03/16 07:30 36.3 77 20 139/76 96 Room Air 09/03/16 04:35 36.3 73 20 104/55 94 CPAP 09/03/16 04:00 CPAP 6.0 09/03/16 00:29 36.3 96 20 109/69 93 CPAP 09/03/16 00:00 CPAP 6.0 09/02/16 20:56 97 18 93 Nasal Cannula 3.0 09/02/16 20:00 97 Nasal Cannula 3.0 09/02/16 20:00 36.3 70 18 105/70 97 Nasal Cannula 3.0 Lab Results: Results Past 24 Hours Test 09/03/16 07:40 Range/Units White Blood Count 8.42 4.8-10.8 K/uL Red Blood Count 4.46 4.7-6.1 M/uL Hemoglobin 11.7 14.0-18.0 g/dL Hematocrit 37.0 42-52 % Mean Corpuscular Volume 83.0 80-100 fL Mean Corpuscular Hemoglobin 26.2 25-34 pg Mean Corpuscular Hemoglobin Concent 31.6 32-36 g/dl Platelet Count 404 130-400 K/uL Mean Platelet Volume 8.4 7.4-10.4 fL Neutrophils (%) (Auto) 85.8 % Lymphocytes (%) (Auto) 5.3 % Monocytes (%) (Auto) 8.7 % Eosinophils (%) (Auto) 0.0 % Basophils (%) (Auto) 0.0 % Neutrophils # (Auto) 7.22 1.4-6.5 K/uL Lymphocytes # (Auto) 0.45 1.2-3.4 K/uL Monocytes # (Auto) 0.73 0.11-0.59 K/uL Eosinophils # (Auto) 0.00 0-0.5 K/uL Basophils # (Auto) 0.00 0-0.2 K/uL RDW Standard Deviation 58.1 36.4-46.3 fL RDW Coefficient of Variation 19.5 11.5-14.5 % Immature Granulocyte % (Auto) 0.2 % Immature Granulocyte # (Auto) 0.02 0.00-0.02 K/uL Sodium Level 140 136-145 mmol/L Potassium Level 3.6 3.5-5.1 mmol/L Chloride Level 96 98-107 mmol/L Carbon Dioxide Level 36 21-32 mmol/L Anion Gap 8.0 3-11 mmol/L Blood Urea Nitrogen 27 7-18 mg/dl Creatinine 1.30 0.60-1.40 mg/dl Est Creatinine Clear Calc Drug Dose 108.9 ml/min Estimated GFR () 75.8 Estimated GFR (Non- 65.4 BUN/Creatinine Ratio 21.1 10-20 Random Glucose 173 70-99 mg/dl Calcium Level 8.7 8.5-10.1 mg/dl Magnesium Level 2.6 1.8-2.4 mg/dl Chemistry Specimen Hemolysis
--- NOTE | 2016-09-03 19:26 | Discharge Summary ---
Discharge Summary Date of Service Sep 03, 2016. Discharge Summary Admission Date: Aug 31, 2016 at 04:56 Discharge Date: Sep 03, 2016 Discharge Disposition: Home Principal Diagnosis: COUGH PNEUMOTHORAX Secondary Diagnoses/Problems: (1) CHF (congestive heart failure), NYHA class III Status: Chronic (2) Chronic respiratory failure Status: Chronic (3) Chronic right-sided congestive heart failure Status: Chronic (4) Chronic steroid use Status: Chronic (5) Depression Status: Chronic (6) Depression Status: Chronic (7) HTN (hypertension) Status: Chronic (8) HTN (hypertension) Status: Chronic (9) Hypoxemia requiring supplemental oxygen Status: Chronic (10) Immunocompromised, acquired Status: Chronic (11) Obesity Status: Chronic (12) ANGELES (obstructive sleep apnea) Status: Chronic (13) Oxygen dependent Permanent Comment: 2-4l via nc Status: Chronic (14) Pulmonary blastomycosis Status: Chronic (15) Pulmonary HTN Status: Chronic (16) Pulmonary hypertension Status: Chronic (17) Pulmonary sarcoidosis Status: Chronic (18) Right-sided heart failure Status: Chronic Procedures: CTA CHEST: 1. No central or lobar pulmonary embolus. The remainder of the pulmonary arteries are suboptimally assessed due to artifact. 2. Trace right pneumothorax. Multiple old right-sided rib fractures. No acute rib fractures identified within visualized ribs. 3. Innumerable ill-defined pulmonary nodules which have significantly improved since exam of July 19, 2014. Numerous calcified mediastinal and hilar lymph nodes. The findings are consistent with the history of sarcoidosis. 4. Fatty liver. 5. Cholelithiasis. 6. Mild bilateral pleural effusions, improved since exam of July 19, 2014. GALL BLADDER US: 1. Cholelithiasis. No evidence of ductal dilatation 2. Increased hepatic echogenicity, likely secondary to hepatic steatosis. Mild hepatomegaly. 3. Nonvisualization the pancreas CXR:1. There is no pneumothorax identified by chest x-ray. 2. Cardiomegaly without radiographic evidence of congestive failure. 3. Diffuse reticulonodular interstitial changes are similar to previous and consistent the reported history of sarcoidosis. 4. There is no evidence of superimposed airspace consolidation indicating pneumonia. Trace pleural effusions are identified. Consultations: PULMONARY Medication Reconciliation New Medications: Lactobacillus Acidophilus (Lactinex) Tab 2 TAB PO BID for 7 Days, #28 TAB Guaifenesin Ext Rel (Mucinex Ext Rel) 600 Mg Tabcr 600 MG PO Q12 for 10 Days, #20 TABS Guaifenesin/Codeine (Robitussin-Ac Syrup) Syrp 5 ML PO Q6H PRN for Cough for 7 Days Levofloxacin (Levofloxacin) 750 Mg Tab 750 MG PO DAILY@11 for 5 Days, #5 TAB Changed Medications: Prednisone (Prednisone) 10 Mg Tab 40 MG PO DAILY, #30 TABS (Changed from: PREDNSIONE 40MG PO DAILY X 2 DAYS THEN PREDNSIONE 30MG PO DAILY X 2 DAYS THEN PREDNSIONE 20MG PO DAILY X 2 DAYS THEN PREDNSIONE 15MG PO DAILY) PREDNSIONE 40MG PO DAILY X 2 PREDNSIONE 30MG PO DAILY X 2 PREDNSIONE 20MG PO DAILY X 2 THEN PREDNSIONE 15MG PO DAILY Continued Medications: Alendronate Sodium (Fosamax) 70 Mg Tab 1 TAB PO WK for 28 Days, #4 TAB 11 Refills Aspirin (Aspirin Ec) 81 Mg Tab 81 MG PO DAILY Atovaquone (Mepron) 750 Mg/5 Ml Susp 1500 MG PO DAILY Budesonide (Pulmicort Respules 0.5MG/2ML) 0.5 Mg/2 Ml Nebu 2 ML INH BID, EA Citalopram Hydrobromide (Citalopram Hydrobromide) 20 Mg Tab 1 TAB PO DAILY for 30 Days, #30 TAB 5 Refills Docusate Sodium (Docusate Sodium) 100 Mg Cap 100 MG PO BID PRN for Constipation Fluticasone Furoate-Vilanterol (Breo Ellipta) 1 Inh Inh 1 INHA INH DAILY Folic Acid (Folvite) 1 Mg Tab 1 MG PO DAILY, TAB Ipratropium-Albuterol (Combivent Respimat) 1 Aer Aer 1 PUFFS INH Q6 PRN for SOB/Wheezing, INH Ipratropium-Albuterol (Duoneb) 3 Ml Nebu 1 TREATMENT INH Q4H PRN for Shortness of Breath, INHA Itraconazole (Sporanox) 10 Mg/Ml Ban 300 MG PO BID Losartan Potassium (Cozaar) 25 Mg Tab 25 MG PO DAILY, TAB Methotrexate Sodium (Methotrexate) 2.5 Mg Tab 20 MG PO WK, TAB TAKES ON TUESDAY. DO NOT TAKE FOLIC ACID ON SAME DAY. Omeprazole (Omeprazole) 20 Mg Tab 1 TAB PO DAILY for 90 Days, #90 TAB 1 Refill Potassium Chloride Microencaps (Potassium Chloride Er) 20 Meq Tab 1 TAB PO DAILY for 90 Days, #90 TAB 3 Refills Spironolactone (Aldactone) 25 Mg Tab 25 MG PO BID, TAB Tamsulosin HCl (Tamsulosin HCl) 0.4 Mg Cap 0.4 MG PO DAILY Torsemide (Torsemide) 20 Mg Tab 80 MG PO BID Triamcinolone Acetonide (Nasal (Nasacort Allergy 24Hr) 55 Mcg/Act Spr 2 SPRAYS NILDA DAILY PRN for ALLERGIC REACTION Admission Information HPI (per Admitting provider): 45-year-old male followed by Dr. Downing. Also followed by Pulmonary Medicine Service at [facility]. History of pulmonary sarcoidosis, sleep apnea on BiPAP, CHF, pulmonary blastomycosis, and other problems noted below. Developed sinus congestion and cough about 1 week ago. Cough productive of yellow sputum. Experiencing sweats, but no documented fever. No associated pharyngitis. Cough is severe. Tonight he experienced acute onset of right-sided chest versus right upper abdominal pain. . Physical Exam (per Admitting): General Appearance: + moderate distress, + obese Head: normocephalic, atraumatic, + pertinent finding (Cushingoid facies) Eyes: normal inspection, PERRL, EOMI, sclerae normal (conjunctivae pink) ENT: hearing grossly normal, pharynx normal Neck: supple, no adenopathy, thyroid normal, trachea midline, + pertinent finding (healed tracheostomy) Respiratory/Chest: + rhonchi (scattered), + wheezing (diffuse moderate) Cardiovascular: regular rate, rhythm, no gallop, no murmur, + pertinent finding (neck veins difficult to assess due to body habitus; 2-3+ pretibial edema) Abdomen/GI: normal bowel sounds, non tender, soft, no organomegaly, no pulsatile mass, + pertinent finding (exam limited due to obesity) Extremities/Musculoskelatal: no calf tenderness, + pedal edema, + pertinent finding (distal amputation left middle finger) Neurologic/Psych: fusion operator II-XII nml as tested (PERRL, EOMI), no motor/sensory deficits (motor strength grossly intact), alert, normal mood/affect, oriented x 3 Skin: normal color, warm/dry, no rash Lymphatic: no adenopathy Hospital Course CHEST PAIN / PNEUMOTHORAX Acute onset of severe right-sided chest pain preceded by severe coughing. CT of chest showing small right pneumothorax old rib fractures, no pulmonary embolism. Consulted Pulmonary Medicine Bipap was held repeat cxr next day no findings of pneumothorax and restarted bipap which he tolerated well repeat cxr again next day was unremarkable stable ? RUQ PAIN Patient describes his pain as right chest versus right infracostal. CT and ultrasound demonstrated cholelithiasis without apparent biliary tract obstruction. says pain is more while coughing improving f/u with pcp COUGH Productive cough. Apparent sinusitis + lower respiratory tract infection. Difficult to determine whether or not there any superimposed infiltrates with underlying chronic radiographic abnormalities due to sarcoidosis. on Levaquin and Zosyn,. No qt prolongation on repat ekg' change abx to po Levaquin improving f/u with pcp BRONCHOSPASM On IV methylprednisolone will taper back soon to maintenance dose of prednisone. Continue usual nebs. SARCOIDOSIS Steroid management as noted above. Holding methotrexate in light of acute infection. restarted at discharge CHF Echo in January 2016 demonstrated LVEF 60-65%. Hx of chronic left ventricular diastolic heart failure as well as right-sided heart failure. Difficult to assess for pulmonary edema in light of underlying chronic lung disease. stable SLEEP APNEA / PROBABLE OBESITY HYPOVENTILATION SYNDROME restarted bipap PULMONARY BLASTOMYCOSIS Continue itraconazole. PCP PROPHYLAXIS Immunosuppressed secondary to glucocorticoid and methotrexate therapy. Continue atovaquone. HYPOKALEMIA Serum potassium 3.2. Replace. Follow. ARF cr 1.6 09/01/16 resolved restarted diuretics will f/u labs discharged home Total time spent on discharge = 35MINUTES This includes examination of the patient, discharge planning, medication reconciliation, and communication with other providers. Discharge Instructions Discharge Instructions Date of Service Sep 03, 2016. Admission Reason for Admission: Pneumothorax, Sarcoidosis Discharge Discharge Diagnosis / Problem: PNEUMOTHOARX, COUGH Discharge Goals Goal(s): Decrease discomfort, Improve function Activity Recommendations Activity Limitations: resume your previous activity . Instructions / Follow-Up Instructions / Follow-Up FOLLOWUP WITH FAMILY DOCTOR ON September AT 10:50AM FOLLOWUP WITH PULMONARY SCHEDULED. Current Hospital Diet Patient's current hospital diet: Regular Diet Discharge Diet Recommended Diet: AHA Diet (Heart Healthy) Pending Studies Studies pending at discharge: no Medical Emergencies . Who to Call and When: Medical Emergencies: If at any time you feel your situation is an emergency, please call 911 immediately. . Non-Emergent Contact Non-Emergency issues call your: Primary Care Provider . . "Provider Documentation" section prepared by Trell Rose. VTE Core Measure Inpt VTE Proph given/why not?: Enoxaparin (Lovenox)SQ
--- NOTE | 2016-09-06 01:28 | EMERGENCY ROOM VISIT NOTE ---
History First contact with patient: 00:59 Chief Complaint: COUGH Stated Complaint: PNEUMOTHORAX, SARCOIDOSIS Nursing Triage Summary: Patient reports that he had a sinus infection on , was prescribed levaquing by his PCP. Reports that it currently hurts to take a deep breath, also reports "muscle pain" on his RUQ and right back/rib area from coughing too hard. Patient reports coughing green/yellow sputum, wears 3 L O2 at all times. History of Present Illness The patient is a 45 year old male who presents to the Emergency Department by private vehicle with his father for evaluation of his ongoing symptoms of sinus congestion as well as cough and RIGHT upper quadrant abdominal pain. He reports that he was diagnosed with sinus infection on and placed on Levaquin. He isn't using this antibiotic and reports that he has had moderate resolve of sinusitis related symptoms. He's had persistent cough, however and reports that after coughing yesterday, he developed pain in the RIGHT upper quadrant. He's had persistent pain which worsens with deep inspiration as well as cough. He reports no fevers or chills. The patient does have a significant past medical history of hypertension, CHF, respiratory failure resulting in tracheostomy, pulmonary hypertension, and washoe doses. The patient uses 3 L nasal cannula at all times. This has not changed. The patient denies any falls or recent trauma to the affected area. He rates his current discomfort as an 8/10. He denies any headaches, dizziness, blurry vision, chest pain, but dictations, hemoptysis, nausea, vomiting, hematochezia, melena, hematuria, or dysuria. Review of Systems A complete 10-point Review of Systems was discussed with the patient, with pertinent positives and negatives listed in the History of Present Illness. All remaining Review of Systems questions can be considered negative unless otherwise specified. Past Medical/Surgical History Medical Problems: (1) CHF (congestive heart failure), NYHA class III (2) Chronic respiratory failure (3) Chronic right-sided congestive heart failure (4) Chronic steroid use (5) Depression (6) Depression (7) HTN (hypertension) (8) HTN (hypertension) (9) Hypoxemia requiring supplemental oxygen (10) Immunocompromised, acquired (11) Obesity (12) ANGELES (obstructive sleep apnea) (13) Oxygen dependent (14) Pneumothorax (15) Pulmonary blastomycosis (16) Pulmonary HTN (17) Pulmonary hypertension (18) Pulmonary sarcoidosis (19) Right-sided heart failure Surgical Problems: (1) Fingertip amputation (2) History of cardiac cath (3) History of tympanostomy (4) S/P cholecystectomy (5) S/P Mohs surgery for basal cell carcinoma (6) S/P tonsillectomy Family History Diabetes mellitus GRANDFATHER GRANDMOTHER Heart disease GRANDFATHER GRANDFATHER GRANDMOTHER GRANDMOTHER Hypercholesterolemia FATHER BROTHER Sarcoidosis UNCLE Social History Smoking Status: Never Smoker Smokeless Tobacco Use: No Alcohol Use: occasionally Drug Use: none Marital Status: single Occupation Status: employed Current/Historical Medications Scheduled Alendronate Sodium (Fosamax), 1 TAB PO WK Aspirin (Aspirin Ec), 81 MG PO DAILY Atovaquone (Mepron), 1,500 MG PO DAILY Budesonide (Pulmicort Respules 0.5MG/2ML), 2 ML INH BID Citalopram Hydrobromide (Citalopram Hydrobromide), 1 TAB PO DAILY Fluticasone Furoate-Vilanterol (Breo Ellipta), 1 INHA INH DAILY Folic Acid (Folvite), 1 MG PO DAILY Guaifenesin Ext Rel (Mucinex Ext Rel), 600 MG PO Q12 Itraconazole (Sporanox), 300 MG PO BID Lactobacillus Acidophilus (Lactinex), 2 TAB PO BID Levofloxacin (Levofloxacin), 750 MG PO DAILY@11 Losartan Potassium (Cozaar), 25 MG PO DAILY Methotrexate Sodium (Methotrexate), 20 MG PO WK Omeprazole (Omeprazole), 1 TAB PO DAILY Potassium Chloride Microencaps (Potassium Chloride Er), 1 TAB PO DAILY Prednisone (Prednisone), 40 MG PO DAILY Spironolactone (Aldactone), 25 MG PO BID Tamsulosin HCl (Tamsulosin HCl), 0.4 MG PO DAILY Torsemide (Torsemide), 80 MG PO BID Scheduled PRN Docusate Sodium (Docusate Sodium), 100 MG PO BID PRN for Constipation Guaifenesin/Codeine (Robitussin-Ac Syrup), 5 ML PO Q6H PRN for Cough Ipratropium-Albuterol (Combivent Respimat), 1 PUFFS INH Q6 PRN for SOB/Wheezing Ipratropium-Albuterol (Duoneb), 1 TREATMENT INH Q4H PRN for Shortness of Breath Triamcinolone Acetonide (Nasal (Nasacort Allergy 24Hr), 2 SPRAYS NILDA DAILY PRN for ALLERGIC REACTION Allergies Coded Allergies: Doxycycline (Verified Allergy, Severe, PEDRAZA, 08/31/16) Physical Exam Vital Signs Date Time Temp Pulse Resp B/P Pulse Ox O2 Delivery O2 Flow Rate FiO2 08/31/16 02:40 99 20 148/85 98 Room Air 08/31/16 01:52 93 08/31/16 01:39 96 Nasal Cannula 3.0 08/31/16 01:14 86 24 124/71 96 Nasal Cannula 3.0 08/31/16 01:10 96 Nasal Cannula 3.0 08/30/16 23:44 36.9 94 26 125/72 93 Nasal Cannula 3.0 Pain Rating (0-10): 8 Physical Exam VITAL SIGNS - Vital signs and nursing notes were reviewed. GENERAL - 45-year-old male appearing his stated age who is in no acute distress. Communicates well with provider and answers questions appropriately. HEAD - NC/AT. EYES - PERRL with EOMI bilaterally. Sclera anicteric. Palpebral conjunctiva pink and moist with no injection noted. EARS - No deformities of external structures noted on gross examination bilaterally. No pain elicited with palpation of the tragus bilaterally. External auditory canals without discharge or otorrhea. Tympanic membranes pearly navarro without retraction or bulging. NOSE - Midline and without cyanosis. No epistaxis or purulent drainage noted. Septum midline without deviation or septal hematoma noted. MOUTH/OROPHARYNX - Without perioral cyanosis. Buccal mucosa pink and moist and without leukoplakia. Tongue midline with equal elevation of palate bilaterally. No tonsillar hypertrophy, erythema, or exudates noted. NECK - Neck with FROM. Supple to palpation. LUNGS - Chest wall symmetric without accessory muscle use, intercostals retractions, or central cyanosis. Normal vesicular breath sounds CTA B/L. Diffuse inspiratory wheezes noted throughout all lung moser. No rales or rhonchi appreciated. CARDIAC - RRR with S1/S2. No murmur, rubs, or gallops appreciated. No reproducible tenderness to palpation appreciated over the anterior chest wall. ABDOMEN - Abdominal contour obse and without pulsations or visible masses. BS normoactive all four quadrants. No tenderness, palpable masses, hepatosplenomegaly, or ascites noted. EXTREMITIES - No clubbing or peripheral cyanosis. No pretibial edema present. +3 /5 radial and dorsalis pedis pulses palpated throughout. +5/5 strength noted in UE/LE bilaterally. NEUROLOGIC - Cranial nerves II through XII grossly intact. Sensory intact to light touch throughout. PSYCH - A&Ox3 and cooperates fully with examiner. Pt is very pleasant and interacts well with examiner. Medical Decision & Procedures ER Provider Diagnostic Interpretation: Radiological imaging and reports were reviewed by myself. Radiologist's Interpretation as follows: CHEST ONE VIEW PORTABLE CLINICAL HISTORY: cough/Pain COMPARISON STUDY: 01/17/2016 FINDINGS: The heart remains enlarged. Interstitial point fibrotic changes are again evident. There is blunting of the lateral costophrenic angles. There is persistent pleural thickening. A triangular appearance of the right hilum remains stable.[ There is an opacity at the right medial lung base, likely representing a focal eventration or prominent fat pad. IMPRESSION: Cardiomegaly and persistent underlying interstitial lung disease. Persistent bilateral pleural thickening. CT ANGIOGRAPHY OF THE CHEST, PULMONARY EMBOLUS PROTOCOL CLINICAL HISTORY: Right anterior rib pain. History of sarcoidosis. COMPARISON STUDY: Chest CT July 19, 2014 and chest radiograph performed earlier today. TECHNIQUE: Following IV administration of 118 mL of Optiray-320, helical axial images of the chest were obtained utilizing the pulmonary embolus protocol. Maximal intensity projections and sagittal and coronal reformats were viewed on an independent 3D workstation. IV contrast was administered without complication. CT DOSE: 1008.25 mGy.cm FINDINGS: Evaluation of the pulmonary arteries is significantly compromised due to artifact on this exam. There is no central pulmonary embolus. The heart is mildly enlarged. There is no pericardial effusion. Numerous calcified mediastinal and bilateral hilar lymph nodes are present. These were shown on prior CT of July 19, 2014. A small left pleural effusion is decreased in size. A trace right pleural effusion has slightly decreased in size as well. There is a trace right pneumothorax. There are multiple old right-sided rib fractures. No acute rib fractures are identified. Innumerable ill-defined pulmonary nodules are noted. These are decreased in size and number since exam of March 18, 2015. Distortion within the lungs is noted. There is mucus or debris within the dependent aspect of the trachea and mainstem bronchi. There is no central obstructing mass. There is no left pneumothorax. No suspicious osseous lesions are present. There is fatty infiltration of the liver. A gallstone is noted within the gallbladder. IMPRESSION: 1. No central or lobar pulmonary embolus. The remainder of the pulmonary arteries are suboptimally assessed due to artifact. 2. Trace right pneumothorax. Multiple old right-sided rib fractures. No acute rib fractures identified within visualized ribs. 3. Innumerable ill-defined pulmonary nodules which have significantly improved since exam of July 19, 2014. Numerous calcified mediastinal and hilar lymph nodes. The findings are consistent with the history of sarcoidosis. 4. Fatty liver. 5. Cholelithiasis. 6. Mild bilateral pleural effusions, improved since exam of July 19, 2014. Laboratory Results Test 08/31/16 00:50 08/31/16 01:25 08/31/16 01:32 08/31/16 01:49 Prothrombin Time 11.2 SECONDS (9.0-12.0) Prothromb Time International Ratio 1.0 (0.9-1.1) Activated Partial Thromboplast Time 29.2 SECONDS (21.0-31.0) Partial Thromboplastin Ratio 1.1 Total Creatine Kinase 433 U/L (39-308) Creatine Kinase MB 1.6 ng/ml (0.5-3.6) Creatine Kinase MB Ratio 0.4 (0-3.0) Lipase 163 U/L (73-393) Bedside Troponin I 0.000 ng/ml (0-0.045) LG-Viw-V-Type Natriuretic Peptide 85 pg/ml (0-450) Venous Blood pH 7.46 (7.36-7.41) Venous Blood Partial Pressure CO2 53 mmHg (38.0-50.0) Venous Blood Partial Pressure O2 44 mmHg Venous Blood HCO3 37 mmol/L Venous Blood Oxygen Saturation 76.6 % Venous Blood Base Excess 11.0 mmol/L Bedside Lactic Acid Venous 1.72 mmol/L (0.90-1.70) Test 08/31/16 03:50 Urine Color YELLOW Urine Appearance CLEAR (CLEAR) Urine pH 6.5 (4.5-7.5) Urine Specific [place] 1.043 (1.000-1.030) Urine Protein NEG (NEG) Urine Glucose (UA) NEG (NEG) Urine Ketones NEG (NEG) Urine Occult Blood TRACE (NEG) Urine Nitrite NEG (NEG) Urine Bilirubin NEG (NEG) Urine Urobilinogen NEG (NEG) Urine Leukocyte Esterase TRACE (NEG) Urine WBC (Auto) 1-5 /hpf (0-5) Urine RBC (Auto) 5-10 /hpf (0-4) Urine Hyaline Casts (Auto) 0 /lpf (0-5) Urine Epithelial Cells (Auto) 5-10 /lpf (0-5) Urine Bacteria (Auto) NEG (NEG) Date/Time Source Procedure Growth Status 08/31/16 01:24 Blood Blood Culture - Final NO GROWTH Complete Medications Administered Medications (Trade) Dose Ordered Sig/Marian Route Start Time Stop Time Status Last Admin Dose Admin Albuterol/ Ipratropium (Duoneb) 3 ml NOW STAT INH 08/31/16 01:09 08/31/16 01:13 DC 08/31/16 01:28 3 ML Morphine Sulfate (MoRPHine SULFATE INJ) 2 mg NOW STAT IV 08/31/16 01:09 08/31/16 01:13 DC 08/31/16 01:29 2 MG Ondansetron HCl (Zofran Inj) 4 mg NOW STAT IV 08/31/16 01:09 08/31/16 01:13 DC 08/31/16 01:28 4 MG Methylprednisolone Sodium Succinate (Solu-Medrol IV) 80 mg STK-MED ONCE .ROUTE 08/31/16 01:13 08/31/16 01:17 DC 08/31/16 01:28 80 MG Morphine Sulfate (MoRPHine SULFATE INJ) 2 mg NOW STAT IV 08/31/16 02:09 08/31/16 02:11 DC 08/31/16 02:38 2 MG Ceftriaxone Sodium (Rocephin Inj) 1 gm NOW STAT IV 08/31/16 03:33 08/31/16 03:34 DC 08/31/16 03:48 1 GM Levofloxacin (Levaquin / D5W) 750 mg NOW STAT IV 08/31/16 03:33 08/31/16 03:34 DC 08/31/16 03:48 750 MG Procedure Patient was placed on the quality assurance monitor and monitored throughout the entire extent of their stay. In addition, the patient's pulse oximetry was monitored throughout the entire stay. Any abnormalities or aberrancies were addressed appropriately. ECG Indication: SOB/dyspnea Rate (beats per minute): 81 Rhythm: normal sinus Findings: RBBB, no acute ischemic change, no ectopy Change: no significant change (from 01/17/2016.) ED Course Patient was seen and evaluated by myself. Previous emergency department visit notes and hospitalizations were reviewed. Labs were drawn, saline lock in place. EKG and chest x-ray were obtained. The patient was treated with 1 DuoNeb as well as 2 mg morphine, 4 g Zofran, and 80 mg Solu-Medrol intravenously. Chest x-ray was initially radiating concern for possible infiltrate. He was treated with IV Rocephin and IV Levaquin. Blood cultures had been obtained. Patient was reevaluated and his breath sounds are better at this point. Case was reviewed with my attending physician. CT of the chest was obtained. Laboratory results demonstrate no acute leukocytosis, worrisome anemia, or bandemia. The patient has no significant electrolyte abnormalities. Cardiac enzymes are negative. Troponin was negative. He was treated with an additional 2 mg morphine for pain. Imaging results as above. Case was discussed with the [facility] hospitalist who admits the patient for further evaluation and management. Patient admitted in stable condition. Medical Decision Given the patient's presentation and exam findings, I did elect to perform the above-mentioned workup. The patient presents today with ongoing cough as well as sinusitis. He has refused pain to the RIGHT-sided anterior ribs and abdomen. His chest x-ray was initially concerning for possible infiltrate on his chronic to see state. He was treated for pain and responded well to DuoNeb and Solu-Medrol. He was treated with IV steroids. The patient has a significantly comfort. Past history including tracheostomy to secondary to sarcoidosis and respiratory failure. Patient was aggressively managed in the emergency setting. He was found to have a small pneumothorax. No intervention necessary at this point. Patient will be admitted to the hospitalist service for continued management and monitoring. Patient is stable condition. In the evaluation and treatment of this patient, the following differential diagnoses were considered: MN, ASC, Dysrhythmia, Angina, Mediastinitis, GERD, Esophagitis, PE, Pneumonia, Bronchitis, Costochondritis, Rib Fracture, Zoster. Impression Primary Impression: Respiratory distress Additional Impressions: Cough Pneumothorax Departure Information Dispostion Admitted as an inpatient Condition FAIR Prescriptions Guaifenesin Ext Rel (MUCINEX EXT REL) 600 Mg Tabcr 600 MG PO Q12 for 10 Days, #20 TABS Prov: Trell Rose MD 09/03/16 Lactobacillus Acidophilus (Lactinex) Tab 2 TAB PO BID for 7 Days, #28 TAB Prov: Trell Rose MD 09/03/16 Guaifenesin/Codeine (Robitussin-Ac Syrup) Syrp 5 ML PO Q6H Y for Cough for 7 Days Prov: Trell Rose MD 09/03/16 Levofloxacin (Levofloxacin) 750 Mg Tab 750 MG PO DAILY@11 for 5 Days, #5 TAB Prov: Trell Rose MD 09/03/16 Prednisone (Prednisone) 10 Mg Tab 40 MG PO DAILY, #30 TABS PREDNSIONE 40MG PO DAILY X 2 PREDNSIONE 30MG PO DAILY X 2 PREDNSIONE 20MG PO DAILY X 2 THEN PREDNSIONE 15MG PO DAILY Prov: Trell Rose MD 09/03/16 Referrals Andrzej Downing M.D. (PCP) Forms HOME CARE DOCUMENTATION FORM, IMPORTANT VISIT INFORMATION Patient Instructions [facility] Problem Qualifiers Additional Impressions: Pneumothorax Pneumothorax type: unspecified pneumothorax Qualified Codes: J93.9 - Pneumothorax, unspecified
[2016-10-12] MEDS ORDERED: IBUP-1277 PO (16:51)
[2016-10-12] MEDS ORDERED: ULT50X PO ×2 (16:51→16:54)
[2016-10-12] MEDS ORDERED: MCRK20 PO (16:51)
== END 2016-09-03 14:27 | disposition home or self-care (01) | DRG 200 ==
LOC: ENRESERVDT → ENRESERVTM → C.EDB 23:35 → C.EDINP 08-31 04:56 → C.MED 08-31 12:00
PROVIDERS: ADMIT Hospitalist; ATTEND Internal Medicine
DX: J93.9 Pneumothorax, unspecified (principal); B40.2 Pulmonary blastomycosis, unspecified; J96.11 Chronic respiratory failure with hypoxia; I50.32 Chronic diastolic (congestive) heart failure; E66.2 Morbid (severe) obesity with alveolar hypoventilation; Z68.42 Body mass index [BMI] 45.0-49.9, adult; N17.9 Acute kidney failure, unspecified; R07.89 Other chest pain; R10.11 Right upper quadrant pain; J22 Unspecified acute lower respiratory infection; J98.01 Acute bronchospasm; D86.0 Sarcoidosis of lung; T38.0X5A Adverse effect of glucocorticoids and synthetic analogues, initial encounter; T45.1X5A Adverse effect of antineoplastic and immunosuppressive drugs, initial encounter; E87.6 Hypokalemia; K80.20 Calculus of gallbladder without cholecystitis without obstruction; I11.0 Hypertensive heart disease with heart failure; I27.2 Other secondary pulmonary hypertension; F32.9 Major depressive disorder, single episode, unspecified; Z99.81 Dependence on supplemental oxygen; Z79.51 Long term (current) use of inhaled steroids; Z79.52 Long term (current) use of systemic steroids; Z79.82 Long term (current) use of aspirin; Z79.83 Long term (current) use of bisphosphonates; Z79.899 Other long term (current) drug therapy; Z88.1 Allergy status to other antibiotic agents; Z83.2 Family history of diseases of the blood and blood-forming organs and certain disorders involving the immune mechanism; Z82.49 Family history of ischemic heart disease and other diseases of the circulatory system; Z83.3 Family history of diabetes mellitus; Z83.49 Family history of other endocrine, nutritional and metabolic diseases

== ENCOUNTER 2016-10-10 17:51 | Inpatient (IN) | payer OTHER ==
[~2016-10-10] VITALS: Ht 177.8 cm; Wt 155.8 kg
[~2016-10-10 17:51] MED LIST changes: -BUDE0.5S NEB; -BUME1TAB PO; +DMD20 PO; -DOUNEB INH; +GFNSR600 PO; +GUAISYP4 PO; +IPRASOL4 INH; +LCTX PO; +LVQ750 PO; +PLMINSR5 INH; -POTA-335 PO; +POTA20TA13 PO; +PRD10 PO; -PRED10TA PO; +TRIA1SPR4 NAE; -TRIA3AER NAE; +[UNRECOGNIZED DRUG - OTHER] PO
[2016-10-10] MEDS ORDERED: SODIUM CHLORIDE 0.9% 500ML 500 ML IV STA (18:18)
[2016-10-10 18:31] LABS: BASO % 0.2 %; BASO ABS # 0.02 K/uL (0-0.2); COMPLETE YES; EOS % 2.6 %; HEMATOCRIT 40.1 % (42-52); IG% 0.2 %; LYMPH % 3.3 %; LYMPH ABS # 0.43 K/uL (1.2-3.4); MEAN CELL VOLUME 86.1 fL (80-100); MEAN CORPUSCULAR HEMOGLOBIN 26.8 pg (25-34); MEAN CORPUSCULAR HGB CONC 31.2 g/dl (32-36); MEAN PLATELET VOLUME 8.4 fL (7.4-10.4); MONO % 7.4 %; NEUT % 86.3 %; PLATELET COUNT 428 K/uL (130-400); RED BLOOD COUNT 4.66 M/uL (4.7-6.1); WHITE BLOOD COUNT 12.91 K/uL (4.8-10.8)
[2016-10-10] MEDS ORDERED: PRED-301 PO (18:32)
[2016-10-10 18:33] LABS: INR 1.1 (0.9-1.1); PARTIAL THROMBOPLASTIN RATIO 1.1; PROTHROMBIN TIME (PATIENT) 11.5 SECONDS (9.0-12.0)
[2016-10-10 18:39] LABS: ISTAT ARTERIAL BLOOD GAS HCO3 31 meq/L (19-24); ISTAT ARTERIAL BLOOD GAS PCO2 43 mmHg (35-46); ISTAT ARTERIAL BLOOD GAS PO2 49 mmHg (80-95); ISTAT ARTERIAL BLOOD GAS pH 7.47 (7.35-7.45); ISTAT CARBON DIOXIDE 33 mEq/l (24-31); ISTAT HEMATOCRIT 41 % (42-52); ISTAT HEMOGLOBIN 13.9 g/dl (14.0-18.0); ISTAT SODIUM 138 mEq/L (135-144)
[2016-10-10 18:39] LABS: ISTAT CREATININE 1.2 mg/dl (0.6-1.3); ISTAT HEMOGLOBIN 14.6 g/dl (14.0-18.0); ISTAT IONIZED CALCIUM 1.02 mmol/l (1.12-1.32)
[2016-10-10 18:40] LABS: ALT/SGPT 57 U/L (12-78); AST/SGOT 31 U/L (15-37); BLOOD UREA NITROGEN 18 mg/dl (7-18); BUN/CREATININE RATIO 13.5 (10-20); CALCIUM 8.8 mg/dl (8.5-10.1); CARBON DIOXIDE 33 mmol/L (21-32); CHLORIDE 97 mmol/L (98-107); GLUCOSE 133 mg/dl (70-99); POTASSIUM 2.8 mmol/L (3.5-5.1); SODIUM 140 mmol/L (136-145)
[2016-10-10 18:45] LABS: ALB/GLOB RATIO 0.8 (0.9-2); ALKALINE PHOSPHATASE 57 U/L (45-117)
--- NOTE | 2016-10-10 18:47 | EMERGENCY ROOM VISIT NOTE ---
History Report prepared by Jessica: Bere Torres Under the Supervision of: Dr. Sam Fierro M.D. First contact with patient: 18:11 Chief Complaint: RESPIRATORY PROBLEMS Stated Complaint: SOB,PAIN R SIDE, PARTIAL COLLAPSED LUNG Nursing Triage Summary: Pt here one month ago with a "partially collapsed lung". Last night "something popped." More sob and "everything cramps on the right side when I take a deep breath." History of Present Illness The patient is a 45 year old male who presents to the Emergency Room with complaints of constant shortness of breath beginning last night. The patient states that he was watching TV last night when he shifted and felt something pop in the right side of his chest. He reports that at the time his pain was a 9 /10 in severity. He notes that he was seen here 1 month ago for a collapsed lung and fluid overload and has been doing well since the visit. The patient reports that last night he felt shortness of breath, right sided rib pain, some mild weakness, and sweating. He denies any headache, LOC, slurred speech, known facial droop, worsened leg swelling, history of lyme disease, recent tick bites. The patient reports that he is on 3L of oxygen at home and last took extra strength Tylenol 5 hours ago. He notes that his pain now is similar to his pain 1 month ago but is not as severe. The patient states that he has a history of rib fractures. Source of History: patient Onset: last night Position: other (global) Symptom Intensity: 9/10 Timing: constant Modifying Factors (Worsening): other (SOB) Associated Symptoms: + weakness, No LOC, No headache Note: The patient reports that last night he felt right sided rib pain, and sweating. He denies any slurred speech, known facial droop, worsened leg swelling, history of lyme disease, recent tick bites. Review of Systems See HPI for pertinent positives & negatives. A total of 10 systems reviewed and were otherwise negative. Past Medical & Surgical Medical Problems: (1) Chest pain (2) CHF (congestive heart failure), NYHA class III (3) Chronic respiratory failure (4) Chronic right-sided congestive heart failure (5) Chronic steroid use (6) Depression (7) Depression (8) HTN (hypertension) (9) HTN (hypertension) (10) Hypoxemia requiring supplemental oxygen (11) Immunocompromised, acquired (12) Obesity (13) ANGELES (obstructive sleep apnea) (14) Oxygen dependent (15) Pneumothorax (16) Pulmonary blastomycosis (17) Pulmonary HTN (18) Pulmonary hypertension (19) Pulmonary sarcoidosis (20) Right-sided heart failure Surgical Problems: (1) Fingertip amputation (2) History of cardiac cath (3) History of tympanostomy (4) S/P cholecystectomy (5) S/P Mohs surgery for basal cell carcinoma (6) S/P tonsillectomy Family History Diabetes mellitus GRANDFATHER GRANDMOTHER Heart disease GRANDFATHER GRANDFATHER GRANDMOTHER GRANDMOTHER Hypercholesterolemia FATHER BROTHER Sarcoidosis UNCLE Social History Smoking Status: Never Smoker Alcohol Use: occasionally Drug Use: none Marital Status: single Occupation Status: employed Current/Historical Medications Scheduled Alendronate Sodium (Fosamax), 1 TAB PO WK Aspirin (Aspirin Ec), 81 MG PO DAILY Atovaquone (Mepron), 1,500 MG PO DAILY Budesonide (Pulmicort Respules 0.5MG/2ML), 2 ML INH BID Citalopram Hydrobromide (Citalopram Hydrobromide), 1 TAB PO DAILY Fluticasone Furoate-Vilanterol (Breo Ellipta), 1 INHA INH DAILY Folic Acid (Folvite), 1 MG PO DAILY Losartan Potassium (Cozaar), 25 MG PO DAILY Methotrexate Sodium (Methotrexate), 20 MG PO WK Omeprazole (Omeprazole), 1 TAB PO DAILY Potassium Chloride Microencaps (Potassium Chloride Er), 1 TAB PO DAILY Prednisone (Prednisone), 10 MG PO QAM Spironolactone (Aldactone), 25 MG PO BID Tamsulosin HCl (Tamsulosin HCl), 0.4 MG PO DAILY Torsemide (Torsemide), 80 MG PO BID Scheduled PRN Docusate Sodium (Docusate Sodium), 100 MG PO BID PRN for Constipation Guaifenesin/Codeine (Robitussin-Ac Syrup), 5 ML PO Q6H PRN for Cough Ipratropium-Albuterol (Combivent Respimat), 1 PUFFS INH Q6 PRN for SOB/Wheezing Ipratropium-Albuterol (Duoneb), 1 TREATMENT INH Q4H PRN for Shortness of Breath Triamcinolone Acetonide (Nasal (Nasacort Allergy 24Hr), 2 SPRAYS NILDA DAILY PRN for ALLERGIC REACTION Allergies Coded Allergies: Doxycycline (Verified Allergy, Severe, PEDRAZA, 10/10/16) Physical Exam Vital Signs Date Time Temp Pulse Resp B/P Pulse Ox O2 Delivery O2 Flow Rate FiO2 10/10/16 20:23 Nasal Cannula 10/10/16 20:15 96 16 92 10/10/16 20:04 127/83 10/10/16 20:00 125/64 10/10/16 19:45 100 17 95 10/10/16 19:42 141/88 10/10/16 19:15 96 21 95 10/10/16 19:10 127/79 10/10/16 18:44 140/94 10/10/16 18:31 102 10/10/16 18:06 117/75 10/10/16 17:53 36.8 105 20 137/68 95 Nasal Cannula 3.0 Physical Exam GENERAL: Patient is uncomfortable appearing and in moderate distress. HEENT: No acute trauma, normocephalic atraumatic, mucous membranes moist, no nasal congestion, no scleral icterus. NECK: No stridor, no adenopathy, no meningismus, trachea is midline. LUNGS: No dyspnea. Clear to auscultation and equal bilaterally. No wheeze, no rhonchi. HEART: Mildly tachycardic rate and regular rhythm. No murmurs, rubs, gallops appreciated. ABDOMEN: Soft, nontender, bowel sounds positive, no masses appreciated, no peritonitis. BACK: No midline tenderness, no CVA tenderness EXTREMITIES: Normal motion all extremities, no cyanosis, bilateral lower leg edema. Partial amputation left third digit. NEUROLOGIC: Alert and oriented, no acute motor or sensory deficits, cranial nerves grossly intact. Left lower facial droop. SKIN: No rash, no jaundice, no diaphoresis. Old scar of the right face. Medical Decision & Procedures ER Provider Diagnostic Interpretation: CT results as stated below per interpretation by me and the radiologist: CT HEAD WITHOUT CONTRAST (CT) FINDINGS: No intra or extra-axial mass lesions are visualized. There is no CT evidence of acute cortical infarction. There is no evidence of midline shift. There is no acute hemorrhage. No calvarial fractures are visualized. There is no evidence of pathologic ventricular dilatation. There is no evidence of acute sinusitis IMPRESSION: No acute intracranial findings Electronically signed by: Josafat Desir M.D. 10/10/2016 7:13 PM Dictated Date/Time: 10/10/2016 7:[address] ANGIOGRAM OF THE CHEST FINDINGS: There is cholelithiasis. There is hepatic steatosis. There is a stable 45 mm lesion within the posterior aspect of the right lobe of the liver possibly reflecting focal fatty sparing. There are calcified mediastinal and hilar lymph nodes. This may be secondary to the patient's reported sarcoidosis. There was no evidence of thoracic aortic dilatation. There were no pulmonary artery filling defects to indicate acute pulmonary embolism. There are increasing bilateral pleural effusions There are stable areas of presumed atelectasis/scarring. There is no acute parenchymal consolidation. There are areas of interstitial thickening. There are scattered tiny nodules, similar to the prior study IMPRESSION: 1. No CT evidence of acute pulmonary embolism 2. Calcified stylohyoid lymph nodes consistent with the clinical history of sarcoidosis 3. Stable reticulonodular opacities, a finding again likely secondary to the patient's sarcoidosis 4. Increasing bilateral pleural effusions 5. Cholelithiasis 6. Hepatic steatosis. Electronically signed by: Josafat Desir M.D. 10/10/2016 7:19 PM Dictated Date/Time: 10/10/2016 7:13 PM Laboratory Results 10/10/16 18:15 Red Blood Count 4.66, Mean Corpuscular Volume 86.1, Mean Corpuscular Hemoglobin 26.8, Mean Corpuscular Hemoglobin Concent 31.2, Mean Platelet Volume 8.4, Neutrophils (%) (Auto) 86.3, Lymphocytes (%) (Auto) 3.3, Monocytes (%) (Auto) 7.4, Eosinophils (%) (Auto) 2.6, Basophils (%) (Auto) 0.2, Neutrophils # (Auto) 11.15, Lymphocytes # (Auto) 0.43, Monocytes # (Auto) 0.95, Eosinophils # (Auto) 0.33, Basophils # (Auto) 0.02 10/10/16 18:15 Test 10/10/16 18:15 10/10/16 18:22 10/10/16 18:26 White Blood Count 12.91 K/uL (4.8-10.8) Red Blood Count 4.66 M/uL (4.7-6.1) Hemoglobin 12.5 g/dL (14.0-18.0) Hematocrit 40.1 % (42-52) Mean Corpuscular Volume 86.1 fL (80-100) Mean Corpuscular Hemoglobin 26.8 pg (25-34) Mean Corpuscular Hemoglobin Concent 31.2 g/dl (32-36) Platelet Count 428 K/uL (130-400) Mean Platelet Volume 8.4 fL (7.4-10.4) Neutrophils (%) (Auto) 86.3 % Lymphocytes (%) (Auto) 3.3 % Monocytes (%) (Auto) 7.4 % Eosinophils (%) (Auto) 2.6 % Basophils (%) (Auto) 0.2 % Neutrophils # (Auto) 11.15 K/uL (1.4-6.5) Lymphocytes # (Auto) 0.43 K/uL (1.2-3.4) Monocytes # (Auto) 0.95 K/uL (0.11-0.59) Eosinophils # (Auto) 0.33 K/uL (0-0.5) Basophils # (Auto) 0.02 K/uL (0-0.2) RDW Standard Deviation 60.2 fL (36.4-46.3) RDW Coefficient of Variation 19.3 % (11.5-14.5) Immature Granulocyte % (Auto) 0.2 % Immature Granulocyte # (Auto) 0.03 K/uL (0.00-0.02) Prothrombin Time 11.5 SECONDS (9.0-12.0) Prothromb Time International Ratio 1.1 (0.9-1.1) Activated Partial Thromboplast Time 27.3 SECONDS (21.0-31.0) Partial Thromboplastin Ratio 1.1 Est Creatinine Clear Calc Drug Dose 104.8 ml/min Estimated GFR () 75.8 Estimated GFR (Non- 65.4 BUN/Creatinine Ratio 13.5 (10-20) Calcium Level 8.8 mg/dl (8.5-10.1) Magnesium Level 1.9 mg/dl (1.8-2.4) Total Bilirubin 0.7 mg/dl (0.2-1) Aspartate Amino Transf (AST/SGOT) 31 U/L (15-37) Alanine Aminotransferase (ALT/SGPT) 57 U/L (12-78) Alkaline Phosphatase 57 U/L (45-117) Troponin I < 0.015 ng/ml (0-0.045) Pro-B-Type Natriuretic Peptide 70 pg/ml (0-450) Total Protein 8.1 gm/dl (6.4-8.2) Albumin 3.7 gm/dl (3.4-5.0) Globulin 4.4 gm/dl (2.5-4.0) Albumin/Globulin Ratio 0.8 (0.9-2) Lipase 219 U/L (73-393) Thyroid Stimulating Hormone (TSH) 0.490 uIu/ml (0.300-4.500) Lyme Disease IgG Antibody NEG (NEG) Lyme Disease IgM Antibody NEG (NEG) Bedside Blood Gas pH (LAB) 7.47 (7.35-7.45) Bedside Blood Gas pCO2 (LAB) 43 mmHg (35-46) Bedside Blood Gas pO2 (LAB) 49 mmHg (80-95) Bedside Blood Gas HCO3 (LAB) 31 meq/L (19-24) Bedside Blood Gas Total CO2 33 mEq/l (24-31) Bedside Blood Gas Base Excess (LAB) 8.0 meq/L (-9-1.8) Bedside Blood Gas O2 Saturation 87.0 % (90-95) Bedside Hemoglobin 14.6 g/dl (14.0-18.0) Bedside Hematocrit 43 % (42-52) Bedside Sodium 139 mEq/L (135-144) Bedside Potassium 2.7 mEq/L (3.3-5.0) Bedside Chloride 92 mEq/L (101-112) Bedside Total CO2 30 mEq/l (24-31) Anion Gap 20.0 mmol/L (16-25) Bedside Blood Urea Nitrogen 17 mg/dl (7-18) Bedside Creatinine 1.2 mg/dl (0.6-1.3) Bedside Glucose (other) 141 mg/dl (70-99) Bedside Ionized Calcium (Randy) 1.02 mmol/l (1.12-1.32) Laboratory results as reviewed by me. Medications Administered Medications (Trade) Dose Ordered Sig/Marian Route Start Time Stop Time Status Last Admin Dose Admin Sodium Chloride (Nss 500ml) 500 ml @ 999 mls/hr Q31M STAT IV 10/10/16 18:18 10/10/16 19:49 DC 10/10/16 19:13 999 MLS/HR Potassium Chloride (Klor-Con M10) 40 meq NOW STAT PO 10/10/16 19:47 10/10/16 20:08 DC 10/10/16 20:13 40 MEQ ECG Indication: SOB/dyspnea Rate (beats per minute): 97 Rhythm: normal sinus Findings: ST depression (Lateral, ST depressions are mild), no acute ischemic change, no ectopy ED Course 1810: The patient was evaluated in room B12B. A complete history and physical exam was performed. 1817: Sodium Chloride 500 ml @ 999 mls/hr IV. 1929: Discussed the patient's case with Dr. Angeles. The patient will be evaluated for further treatment and disposition. 1941: Upon reevaluation, the patient is doing well. Discussed results and treatment plan with the patient. He verbalized understanding and agreement with the treatment plan. The patient will be evaluated for further management. Medical Decision Differential: Infectious, Reactive Airway Disease, Pneumonia, Pneumothorax, COPD , CHF, ACS, Pulmonary Embolism, MSK, GI, Dissection, amongst other etiologies entertained. 45 yr old male arrives with complaint of right chest pain and shortness of breath. Recent admission last month for pneumothorax. Notes sudden onset last evening. Patient with sedentary lifestyle, recent hospitalization, leg swelling , tachycardia and shortness of breath. He is not candidate for dimer and I feel that CT PE study was indicated. Fortunately no PE, no pneumothorax. There is worsening of bilateral effusions. Also, patient with left lower facial droop. He has no other neuro deficits. He has no idea when facial droop started. He is not stroke alert / tpa candidate given unknown time of onset along with minimal symptoms. CT head negative. Labs without evidence sepsis. No evidence PE, dissection, ACS. CP may all be old fracture related. Mild hyponatremia also noted. Stable but with multiple findings he will need to come in for further work-up and evaluation. Consults Time Called: 1922 Consulting Physician: Dr. China Martinez Returned Call: 1929 Discussed the patient's case with Dr. Angeles. The patient will be evaluated for further treatment and disposition. Impression Primary Impression: Facial droop Additional Impressions: SOB (shortness of breath) Right-sided chest pain Bilateral pleural effusion Hyponatremia Scribe Attestation The scribe's documentation has been prepared under my direction and personally reviewed by me in its entirety. I confirm that the note above accurately reflects all work, treatment, procedures, and medical decision making performed by me. Departure Information Dispostion Being Evaluated By Hospitalist Referrals Andrzej Downing M.D. (PCP) Patient Instructions My [facility] Time Last Known Well unknown time of onset Stroke t-PA Criteria Reviewed Does NOT meet criteria for t-PA Reason t-PA Not Given Treatment not indicated (minimal symptoms) Problem Qualifiers
[2016-10-10] MEDS ORDERED: OPTIRAY 320 IV PRN (19:15)
--- NOTE | 2016-10-10 19:15 | DIAGNOSTIC IMAGING REPORT ---
CT HEAD WITHOUT CONTRAST (CT) CLINICAL HISTORY: left lower facial droop COMPARISON STUDY: 12/25/2011 TECHNIQUE: Axial CT of the brain is performed from the vertex to the skull base. IV contrast was not administered for this examination. CT DOSE: 786.26 mGy.cm FINDINGS: No intra or extra-axial mass lesions are visualized. There is no CT evidence of acute cortical infarction. There is no evidence of midline shift. There is no acute hemorrhage. No calvarial fractures are visualized. There is no evidence of pathologic ventricular dilatation. There is no evidence of acute sinusitis IMPRESSION: No acute intracranial findings Electronically signed by: Josafat Desir M.D. 10/10/2016 7:13 PM Dictated Date/Time: 10/10/2016 7:12 PM
--- NOTE | 2016-10-10 19:20 | DIAGNOSTIC IMAGING REPORT ---
CT ANGIOGRAM OF THE CHEST CLINICAL HISTORY: Right-sided chest pain. COMPARISON STUDY: 08/31/2016 TECHNIQUE: Following the IV administration of 115 mL of Optiray-320, CT angiogram of the thorax was performed from the thoracic inlet to the lung bases utilizing the pulmonary embolus protocol. Images are reviewed in the axial, sagittal, and coronal planes. IV contrast was administered without complication. MIP imaging was performed. CT DOSE: 768.29 mGy.cm FINDINGS: There is cholelithiasis. There is hepatic steatosis. There is a stable 45 mm lesion within the posterior aspect of the right lobe of the liver possibly reflecting focal fatty sparing. There are calcified mediastinal and hilar lymph nodes. This may be secondary to the patient's reported sarcoidosis. There was no evidence of thoracic aortic dilatation. There were no pulmonary artery filling defects to indicate acute pulmonary embolism. There are increasing bilateral pleural effusions There are stable areas of presumed atelectasis/scarring. There is no acute parenchymal consolidation. There are areas of interstitial thickening. There are scattered tiny nodules, similar to the prior study IMPRESSION: 1. No CT evidence of acute pulmonary embolism 2. Calcified stylohyoid lymph nodes consistent with the clinical history of sarcoidosis 3. Stable reticulonodular opacities, a finding again likely secondary to the patient's sarcoidosis 4. Increasing bilateral pleural effusions 5. Cholelithiasis 6. Hepatic steatosis. Electronically signed by: Josafat Desir M.D. 10/10/2016 7:19 PM Dictated Date/Time: 10/10/2016 7:13 PM
[2016-10-10 19:45] LABS: LYME DISEASE AB IGG NEG (NEG); LYME DISEASE AB IGM NEG (NEG)
[2016-10-10] MEDS ORDERED: POTASSIUM CHLORIDE 10 MEQ TABCR PO STA (19:47)
[2016-10-10 20:01] LABS: MAGNESIUM 1.9 mg/dl (1.8-2.4)
[2016-10-10 20:23] VITALS: Ht 177.8 cm; Wt 155.8 kg
[2016-10-10] MEDS ORDERED: ACETAMINOPHEN 325 MG TAB ONE (20:59)
[2016-10-10] MEDS ORDERED: ACETAMINOPHEN 325 MG TAB PO PRN (21:00)
[2016-10-10] MEDS ORDERED: NITROGLYCERIN 0.4 MG SL PER TAB CHARGE SL PRN (21:00)
[2016-10-10] MEDS ORDERED: TRIAMCINOLONE ACET NASAL SPRAY 10.8ML BTL NAE PRN (21:00)
[2016-10-10] MEDS ORDERED: MoRPHine SULFATE 4 MG/ML 1 ML CARP\\VIAL IV PRN (21:00)
[2016-10-10] MEDS ORDERED: DOCUSATE SODIUM 100 MG CAP PO PRN (21:00)
[2016-10-10] MEDS ORDERED: LEVALBUTEROL/IPRATROPIUM NEB INH PRN (21:00)
--- NOTE | 2016-10-10 21:35 | DIAGNOSTIC IMAGING REPORT ---
CT SCAN OF THE ABDOMEN AND PELVIS WITHOUT CONTRAST CLINICAL HISTORY: Flank pain COMPARISON STUDY: MRI the liver dated 09/19/2012 TECHNIQUE: CT scan of the abdomen and pelvis was performed from the lung bases to the proximal femurs. Images are reviewed in the axial, sagittal, and coronal planes. IV contrast was not administered for this examination. CT DOSE: 1750.00 mGy.cm FINDINGS: Lower chest: There are bilateral calcified hilar lymph nodes. There are small bilateral pleural effusions. There are bilateral reticulonodular opacities, possibly secondary to the patient's known sarcoidosis. Liver: There is hepatic steatosis. There is a stable 4.5 cm focus of increased attenuation within the right lobe. Gallbladder: There is a rim calcified gallstone. Spleen: Normal in size and attenuation. Pancreas: Unremarkable. Adrenal glands: Unremarkable. Kidneys: There is renal contrast excretion secondary to a prior contrast-enhanced CT scan the chest. No solid renal masses are visualized. Bowel: There are no transition zones indicate bowel obstruction. There is no acute diverticulitis. The appendix appears tiny. There are no findings to indicate acute appendicitis. Peritoneum: There is no intraperitoneal free air or abdominal ascites. There is a small fat-containing left inguinal hernia. Vasculature: The abdominal aorta is normal in course and caliber. Adenopathy: None. Pelvic viscera: There is contrast in the bladder secondary to a prior contrast-enhanced CT scan Skeletal structures: There is a mild superior endplate T2 compression deformity likely old IMPRESSION: 1. No evidence of bowel obstruction. No evidence of free air 2. No evidence of acute appendicitis. No evidence of acute diverticulitis 3. Cholelithiasis 4. Small fat-containing left inguinal hernia 5. Small bilateral pleural effusions 6. Bilateral reticulonodular pulmonary opacities, possibly secondary to the patient's sarcoidosis 7. Hepatic steatosis. 4.5 cm right lobe hepatic mass, unchanged in size from an September 2012 MRI examination. Electronically signed by: Josafat Desir M.D. 10/10/2016 9:34 PM Dictated Date/Time: 10/10/2016 9:24 PM
--- NOTE | 2016-10-10 21:39 | History and Physical ---
History & Physical Date & Time of Service: October 10, 2016 at 20:18 Chief Complaint: Sob,Pain R Side, Partial Collapsed Lung Primary Care Physician: Andrzej Downing M.D. History of Present Illness Source: patient This is a 45 y/o male with PMHx of Sarcoidosis on chronic prednisone, ANGELES on BIPAP HS, Diastolic CHF, HTN and other problems as outlined below who presents to the ED c/o worsening R flank pain since last night. Pt was admitted last month with R rib fractures and pneumothorax. Pt reports that since that time he continues to have R rib pain that is relieved with Tylenol. Last night, patient was sitting on the couch watching TV when he felt a "popping" sensation in the R flank followed by intense 10/10 pain. Pain is worse with inspiration and he has also noticed worsening SOB with exertion. He feels like these sxs reflect those he felt with the pneumatothorax. Pt denies fever/chills, PEDRAZA, visual changes, diaphoresis, chest pain, palpitations, wheezing, abd pain, N/V, bowel or bladder issues, LE edema, calf pain, unilateral weakness, slurred speech, difficulty ambulating or swallowing or lightheadedness/dizziness. In the ED, vitals are stable. K+ 2.8. Chest CTA + increasing bilat pleural effusions. No evidence of PE. Head CT negative. Pt is stable and will be admitted for further evaluation and treatment. Past Medical/Surgical History Medical Problems: (1) CHF (congestive heart failure), NYHA class III Status: Chronic (2) Chronic respiratory failure Status: Chronic (3) Chronic right-sided congestive heart failure Status: Chronic (4) Chronic steroid use Status: Chronic (5) Depression Status: Chronic (6) Depression Status: Chronic (7) HTN (hypertension) Status: Chronic (8) HTN (hypertension) Status: Chronic (9) Hypoxemia requiring supplemental oxygen Status: Chronic (10) Immunocompromised, acquired Status: Chronic (11) Obesity Status: Chronic (12) ANGELES (obstructive sleep apnea) Status: Chronic (13) Oxygen dependent Permanent Comment: 2-4l via nc Status: Chronic (14) Pneumothorax Status: Resolved (15) Pulmonary blastomycosis Status: Chronic (16) Pulmonary HTN Status: Chronic (17) Pulmonary hypertension Status: Chronic (18) Pulmonary sarcoidosis Status: Chronic (19) Right-sided heart failure Status: Chronic Surgical Problems: (1) Fingertip amputation Permanent Comment: TUFT AMPUTATION 1986 Status: Chronic (2) History of cardiac cath Status: Chronic (3) History of tympanostomy Status: Chronic (4) S/P cholecystectomy Status: Resolved (5) S/P Mohs surgery for basal cell carcinoma Status: Chronic (6) S/P tonsillectomy Status: Chronic Family History Diabetes mellitus GRANDFATHER GRANDMOTHER Heart disease GRANDFATHER GRANDFATHER GRANDMOTHER GRANDMOTHER Hypercholesterolemia FATHER BROTHER Sarcoidosis UNCLE Social History Smoking Status: Never Smoker Alcohol Use: occasionally (1 beer monthly) Drug Use: none Marital Status: single Housing status: lives alone Occupational Status: employed Immunizations History of Influenza Vaccine: Yes History of Tetanus Vaccine?: Yes Tetanus Immunization Date: Dec 24, 2010 History of Pneumococcal: Yes Pneumococcal Date: Apr 14, 2009 History of Hepatitis B Vaccine: No Multi-Drug Resistant Organisms History of MDRO: No Allergies Coded Allergies: Doxycycline (Verified Allergy, Severe, PEDRAZA, 10/10/16) Home Medications Scheduled Alendronate Sodium (Fosamax), 1 TAB PO WK Aspirin (Aspirin Ec), 81 MG PO DAILY Atovaquone (Mepron), 1,500 MG PO DAILY Budesonide (Pulmicort Respules 0.5MG/2ML), 2 ML INH BID Citalopram Hydrobromide (Citalopram Hydrobromide), 1 TAB PO DAILY Fluticasone Furoate-Vilanterol (Breo Ellipta), 1 INHA INH DAILY Folic Acid (Folvite), 1 MG PO DAILY Losartan Potassium (Cozaar), 25 MG PO DAILY Methotrexate Sodium (Methotrexate), 20 MG PO WK Omeprazole (Omeprazole), 1 TAB PO DAILY Potassium Chloride Microencaps (Potassium Chloride Er), 1 TAB PO DAILY Prednisone (Prednisone), 10 MG PO QAM Spironolactone (Aldactone), 25 MG PO BID Tamsulosin HCl (Tamsulosin HCl), 0.4 MG PO DAILY Torsemide (Torsemide), 80 MG PO BID Scheduled PRN Docusate Sodium (Docusate Sodium), 100 MG PO BID PRN for Constipation Guaifenesin/Codeine (Robitussin-Ac Syrup), 5 ML PO Q6H PRN for Cough Ipratropium-Albuterol (Combivent Respimat), 1 PUFFS INH Q6 PRN for SOB/Wheezing Ipratropium-Albuterol (Duoneb), 1 TREATMENT INH Q4H PRN for Shortness of Breath Triamcinolone Acetonide (Nasal (Nasacort Allergy 24Hr), 2 SPRAYS NILDA DAILY PRN for ALLERGIC REACTION Review of Systems Constitutional: + fatigue, + sweats, No chills, No fever, No weakness Eyes: No worsening of vision ENT: No hearing loss, No trouble swallowing Respiratory: + dyspnea on exertion, + shortness of breath, No cough, No dyspnea at rest, No wheezing Cardiovascular: No claudication, No edema, No palpitations Abdomen: No constipation, No diarrhea, No nausea, No pain, No vomiting Musculoskeletal: + problem reported (R sided rib pain), No calf pain, No swelling Genitourinary - Male: No dysuria Neurologic: No weakness Psychiatric: No depression symptoms Endocrine: + fatigue Hematologic / Lymphatic: No abnormal bleeding/bruising Integumentary: No new/changing skin lesions Physical Exam Vital Signs Date Time Temp Pulse Resp B/P Pulse Ox O2 Delivery O2 Flow Rate FiO2 10/10/16 19:10 127/79 10/10/16 18:44 140/94 10/10/16 18:31 102 10/10/16 18:06 117/75 10/10/16 17:53 36.8 105 20 137/68 95 Nasal Cannula 3.0 General Appearance: WD/WN, no apparent distress, + obese, + pertinent finding ( Pt is sitting on edge of bed ) Head: normocephalic, atraumatic Eyes: normal inspection ENT: hearing grossly normal Neck: supple Respiratory/Chest: chest non-tender, lungs clear, normal breath sounds, no respiratory distress Cardiovascular: regular rate, rhythm, no edema, no murmur Abdomen/GI: normal bowel sounds, non tender, soft Back: + pertinent finding (tenderness to palpation of R rib area) Extremities/Musculoskelatal: normal inspection, no calf tenderness, no pedal edema 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, no motor/sensory deficits, alert, normal mood/affect, oriented x 3 Skin: normal color, warm/dry Diagnostics Laboratory Results Results Past 24 Hours Test 10/10/16 18:15 10/10/16 18:22 10/10/16 18:26 Range/Units White Blood Count 12.91 4.8-10.8 K/uL Red Blood Count 4.66 4.7-6.1 M/uL Hemoglobin 12.5 14.0-18.0 g/dL Hematocrit 40.1 42-52 % Mean Corpuscular Volume 86.1 80-100 fL Mean Corpuscular Hemoglobin 26.8 25-34 pg Mean Corpuscular Hemoglobin Concent 31.2 32-36 g/dl Platelet Count 428 130-400 K/uL Mean Platelet Volume 8.4 7.4-10.4 fL Neutrophils (%) (Auto) 86.3 % Lymphocytes (%) (Auto) 3.3 % Monocytes (%) (Auto) 7.4 % Eosinophils (%) (Auto) 2.6 % Basophils (%) (Auto) 0.2 % Neutrophils # (Auto) 11.15 1.4-6.5 K/uL Lymphocytes # (Auto) 0.43 1.2-3.4 K/uL Monocytes # (Auto) 0.95 0.11-0.59 K/uL Eosinophils # (Auto) 0.33 0-0.5 K/uL Basophils # (Auto) 0.02 0-0.2 K/uL RDW Standard Deviation 60.2 36.4-46.3 fL RDW Coefficient of Variation 19.3 11.5-14.5 % Immature Granulocyte % (Auto) 0.2 % Immature Granulocyte # (Auto) 0.03 0.00-0.02 K/uL Prothrombin Time 11.5 9.0-12.0 SECONDS Prothromb Time International Ratio 1.1 0.9-1.1 Activated Partial Thromboplast Time 27.3 21.0-31.0 SECONDS Partial Thromboplastin Ratio 1.1 Sodium Level 140 136-145 mmol/L Potassium Level 2.8 3.5-5.1 mmol/L Chloride Level 97 98-107 mmol/L Carbon Dioxide Level 33 21-32 mmol/L Anion Gap 10.0 20.0 16-25 mmol/L Blood Urea Nitrogen 18 7-18 mg/dl Creatinine 1.30 0.60-1.40 mg/dl Est Creatinine Clear Calc Drug Dose 104.8 ml/min Estimated GFR () 75.8 Estimated GFR (Non- 65.4 BUN/Creatinine Ratio 13.5 10-20 Random Glucose 133 70-99 mg/dl Calcium Level 8.8 8.5-10.1 mg/dl Magnesium Level 1.9 1.8-2.4 mg/dl Total Bilirubin 0.7 0.2-1 mg/dl Aspartate Amino Transf (AST/SGOT) 31 15-37 U/L Alanine Aminotransferase (ALT/SGPT) 57 12-78 U/L Alkaline Phosphatase 57 45-117 U/L Troponin I < 0.015 0-0.045 ng/ml Total Protein 8.1 6.4-8.2 gm/dl Albumin 3.7 3.4-5.0 gm/dl Globulin 4.4 2.5-4.0 gm/dl Albumin/Globulin Ratio 0.8 0.9-2 Lipase 219 73-393 U/L Lyme Disease IgG Antibody NEG NEG Lyme Disease IgM Antibody NEG NEG Bedside Hemoglobin 13.9 14.6 14.0-18.0 g/dl Bedside Hematocrit 41 43 42-52 % Bedside Blood Gas pH (LAB) 7.47 7.35-7.45 Bedside Blood Gas pCO2 (LAB) 43 35-46 mmHg Bedside Blood Gas pO2 (LAB) 49 80-95 mmHg Bedside Blood Gas HCO3 (LAB) 31 19-24 meq/L Bedside Blood Gas Total CO2 33 24-31 mEq/l Bedside Blood Gas Base Excess (LAB) 8.0 -9-1.8 meq/L Bedside Blood Gas O2 Saturation 87.0 90-95 % Bedside Sodium 138 139 135-144 mEq/L Bedside Potassium 2.7 2.7 3.3-5.0 mEq/L Bedside Chloride 92 101-112 mEq/L Bedside Total CO2 30 24-31 mEq/l Bedside Blood Urea Nitrogen 17 7-18 mg/dl Bedside Creatinine 1.2 0.6-1.3 mg/dl Bedside Glucose (other) 141 70-99 mg/dl Bedside Ionized Calcium (Randy) 1.02 1.12-1.32 mmol/l Diagnostic Radiology CTA CHEST IMPRESSION: 1. No CT evidence of acute pulmonary embolism 2. Calcified stylohyoid lymph nodes consistent with the clinical history of sarcoidosis 3. Stable reticulonodular opacities, a finding again likely secondary to the patient's sarcoidosis 4. Increasing bilateral pleural effusions 5. Cholelithiasis 6. Hepatic steatosis. HEAD CT IMPRESSION: No acute intracranial findings EKG EKG: NSR at 97 bpm with no acute ischemic changes noted; no change when compared to EKG from 09/03/16 Impression Assessment and Plan R FLANK/RIB PAIN pt presented with worsening R flank pain; recent h/o rib fx and pneumothorax -admit observation to telemetry -likely msk in nature -obtain CT abd/pelvis for further evaluation -pain mgmt and warm compresses -monitor BILATERAL PLEURAL EFFUSIONS -CTA chest + increasing bilat pleural effusions -no increase in O2 requirement HYPOKALEMIA -K+ 2.8; replete -monitor with prp daily SARCOIDOSIS -cont Prednisone and methotrexate -pt follows with pulmonology ANGELES ON BIPAP -pt may use BIPAP from home DIASTOLIC CHF -Chest CTA + increasing pleural effusions; clinically does not appear fluid overloaded -echo 01/2016: EF 60-65% with grade I diastolic dysfunction -cont spironolactone and torsemide -monitor volume status with daily weights and I&Os HTN -BP stable -cont losartan -monitor PCP PROPHYLAXIS -immunosuppressed 2* methotrexate -cont atovaquone DVT PROPHYLAXIS -subq Lovenox DISPO Observation status until further workup is complete. Pt seen in collaboration with Dr. Atkinson. Please see his addendum for further details. Thanks! -Of note: patient will be followed by Dr. Colon starting tomorrow AM. Assessment/Plan IM ATTENDING : Patient seen and examined. Preceding documentation by Malena Espinoza PA-C, reviewed. In addition, CT abd pelvis did not show any internal abnormalities to explain R flank pain. FINAL ASSESSMENT AND PLAN as follows: 1. Atypical right-sided chest/flank pain w/ SOB sx likely musculoskeletal w/ reproducible tenderness 2. hypokalemia secondary to diuretic therapy, 3. chronic respiratory failure secondary to right-sided heart failure ANGELES as per records volume status at baseline 4. history of sarcoidosis on chronic prednisone 5. hypertension stable 6. chronic anemia, hemoglobin at baseline 7. L lower lip asymmetry chronic as per patient. Observation PCU analgesia, local measures for R flank pain Replace potassium. continue home diuretic tx PT/OT eval DVT prophylaxis, Lovenox subQ. Full code.
[2016-10-10 21:41] VITALS: BP 126/63; PULSE 95; TEMP 36.7; O2SAT 97
[2016-10-10] MEDS ORDERED: IPRATROPIUM BROMIDE NEB SOLN 0.02% 2.5 ML VIAL INH PRN (21:45)
[2016-10-10] MEDS ORDERED: LEVALBUTEROL 1.25MG/0.5ML NEB INH PRN (21:45)
--- NOTE | 2016-10-10 21:52 | HISTORY & PHYSICAL EXAMINATION ---
DATE OF ADMISSION: 10/10/2016 IM ATTENDING : Patient seen and examined. Preceding documentation by Malena Espinoza PA-C, reviewed. In addition, CT abd pelvis did not show any internal abnormalities to explain R flank pain. FINAL ASSESSMENT AND PLAN as follows: 1. Atypical right-sided chest/flank pain w/ SOB sx likely musculoskeletal w/ reproducible tenderness 2. hypokalemia secondary to diuretic therapy, 3. chronic respiratory failure secondary to right-sided heart failure ANGELES as per records volume status at baseline 4. history of sarcoidosis on chronic prednisone 5. hypertension stable 6. chronic anemia, hemoglobin at baseline 7. L lower lip asymmetry chronic as per patient. Observation PCU analgesia, local measures for R flank pain Replace potassium. continue home diuretic tx PT/OT eval DVT prophylaxis, Lovenox subQ. Full code. MTDD
[2016-10-10] MEDS: TRAMADOL HCL 50 MG TAB PO PRN (22:17)
[2016-10-10] MEDS: SPIRONOLACTONE 25 MG TAB PO SCH (22:21)
[2016-10-10] MEDS: ENOXAPARIN 40 MG/0.4 ML SYR SC SCH (22:22)
[2016-10-10] MEDS ORDERED: IV FLUIDS COMPLETED PRN (22:30)
[2016-10-10] MEDS ORDERED: POTASSIUM CHLORIDE 10 MEQ TABCR PO SCH (23:00)
[2016-10-11] VITALS (9 sets, daily range): BP systolic 106–146; BP diastolic 64–77; PULSE 59–99; TEMP 36.3–36.8; O2SAT 92–97
[2016-10-11 06:30] LABS: BASO % 0.4 %; BASO ABS # 0.03 K/uL (0-0.2); COMPLETE YES; EOS % 9.3 %; HEMATOCRIT 38.5 % (42-52); IG% 0.1 %; LYMPH % 8.2 %; LYMPH ABS # 0.68 K/uL (1.2-3.4); MEAN CELL VOLUME 85.9 fL (80-100); MEAN CORPUSCULAR HEMOGLOBIN 25.9 pg (25-34); MEAN CORPUSCULAR HGB CONC 30.1 g/dl (32-36); MEAN PLATELET VOLUME 8.4 fL (7.4-10.4); MONO % 14.6 %; NEUT % 67.4 %; PLATELET COUNT 402 K/uL (130-400); RED BLOOD COUNT 4.48 M/uL (4.7-6.1); WHITE BLOOD COUNT 8.26 K/uL (4.8-10.8)
[2016-10-11 07:04] LABS: BLOOD UREA NITROGEN 16 mg/dl (7-18); BUN/CREATININE RATIO 14.4 (10-20); CALCIUM 8.8 mg/dl (8.5-10.1); CARBON DIOXIDE 34 mmol/L (21-32); CHLORIDE 98 mmol/L (98-107); GLUCOSE 92 mg/dl (70-99); SODIUM 140 mmol/L (136-145)
[2016-10-11] MEDS: BUDESONIDE 0.5 MG/2 ML VIAL (PULMICORT) INH SCH ×2 (07:09→19:51)
[2016-10-11] MEDS: TRAMADOL HCL 50 MG TAB PO PRN (07:40)
[2016-10-11] MEDS: POTASSIUM CHLORIDE 20 MEQ TABCR PO SCH (07:40)
[2016-10-11] MEDS: PANTOprazole SOD 40 MG TAB PO SCH (07:41)
[2016-10-11] MEDS: SPIRONOLACTONE 25 MG TAB PO SCH ×2 (07:41→17:26)
[2016-10-11] MEDS: TAMSULOSIN HCL 0.4 MG CAP PO SCH (07:41)
[2016-10-11] MEDS: CITALOPRAM 20 MG TAB PO SCH (07:42)
[2016-10-11] MEDS: TORSEMIDE 20 MG TAB PO SCH ×2 (07:42→17:26)
[2016-10-11] MEDS: ASPIRIN 81 MG ECTAB PO SCH (07:42)
[2016-10-11] MEDS: LOSARTAN POTASSIUM 25 MG TAB PO SCH (07:43)
[2016-10-11 09:00] LABS: MAGNESIUM 2.2 mg/dl (1.8-2.4)
[2016-10-11] MEDS ORDERED: POTASSIUM CHLORIDE 10 MEQ TABCR PO ONE (09:30)
[2016-10-11] MEDS: POTASSIUM CHLR 10 MEQ / WTR 10 MEQ in PREMIXED WATER 100 ML IV SCH ×2 (10:13→11:21)
--- NOTE | 2016-10-11 11:24 | Progress Note ---
Internal Med Progress Note Date of Service: October 11, 2016. Provider Documentation: SUBJECTIVE: The patient was seen and examined Still has the right posterior chest pain with some SOB Worse with breathing OBJECTIVE: Vital Signs-as noted below Exam: General-Moderate distress at rest Eyes-normal ENT-normal Neck-supple Lungs-Decreased breath sound at the bases No wheezing Heart-Regular,no murmur Abdomen-Benign,no masses,bowel sound present Extremities-Trace edema bilaterally Neuro-AAOx3 Lab data as noted below. ASSESSMENT & PLAN: Atypical right-sided chest/flank pain w/ SOB Likely secondary to Pleurisy NO ACS Could be musculoskeletal w/ reproducible tenderness No CT evidence of Pulmonary Embolism,no pneumonia and or Pneumothorax Continue Ultram,will give one dose of Prednisone ] No NSAID -to decrease GI symptoms Chronic respiratory failure secondary to right-sided heart failure ANGELES as per records Increasing bilateral pleural effusion Volume status at baseline continue home diuretic tx Electrolytes Imbalance Supplement and recheck History of sarcoidosis on chronic prednisone Continue current dose of Steroid Hypertension stable Continue current medication Chronic anemia, hemoglobin at baseline DVT prophylaxis, Lovenox subQ. Full code. Disposition PT/OT eval Vital Signs: Date Time Temp Pulse Resp B/P Pulse Ox O2 Delivery O2 Flow Rate FiO2 10/11/16 08:00 Nasal Cannula 3.0 10/11/16 07:53 36.5 59 22 106/64 93 Nasal Cannula 3.0 10/11/16 07:09 93 20 94 Nasal Cannula 3.0 10/11/16 04:00 CPAP 6.0 10/11/16 03:57 36.3 82 20 123/70 96 BiPAP 3.0 10/11/16 00:04 36.8 92 21 111/71 96 Nasal Cannula 6.0 10/11/16 00:00 Nasal Cannula 3.0 10/10/16 21:41 36.7 95 20 126/63 97 Nasal Cannula 3.0 10/10/16 21:05 100 18 94 10/10/16 21:01 151/103 10/10/16 20:35 100 21 97 10/10/16 20:30 112/91 10/10/16 20:23 Nasal Cannula 10/10/16 20:15 96 16 92 10/10/16 20:04 127/83 10/10/16 20:00 125/64 10/10/16 19:45 100 17 95 10/10/16 19:42 141/88 5/7/17 19:15 96 21 95 10/10/16 19:10 127/79 10/10/16 18:44 140/94 10/10/16 18:31 102 10/10/16 18:06 117/75 10/10/16 17:53 36.8 105 20 137/68 95 Nasal Cannula 3.0 Lab Results: Results Past 24 Hours Test 10/10/16 18:15 10/10/16 18:22 10/10/16 18:26 10/11/16 05:57 Range/Units White Blood Count 12.91 8.26 4.8-10.8 K/uL Red Blood Count 4.66 4.48 4.7-6.1 M/uL Hemoglobin 12.5 11.6 14.0-18.0 g/dL Hematocrit 40.1 38.5 42-52 % Mean Corpuscular Volume 86.1 85.9 80-100 fL Mean Corpuscular Hemoglobin 26.8 25.9 25-34 pg Mean Corpuscular Hemoglobin Concent 31.2 30.1 32-36 g/dl Platelet Count 428 402 130-400 K/uL Mean Platelet Volume 8.4 8.4 7.4-10.4 fL Neutrophils (%) (Auto) 86.3 67.4 % Lymphocytes (%) (Auto) 3.3 8.2 % Monocytes (%) (Auto) 7.4 14.6 % Eosinophils (%) (Auto) 2.6 9.3 % Basophils (%) (Auto) 0.2 0.4 % Neutrophils # (Auto) 11.15 5.56 1.4-6.5 K/uL Lymphocytes # (Auto) 0.43 0.68 1.2-3.4 K/uL Monocytes # (Auto) 0.95 1.21 0.11-0.59 K/uL Eosinophils # (Auto) 0.33 0.77 0-0.5 K/uL Basophils # (Auto) 0.02 0.03 0-0.2 K/uL RDW Standard Deviation 60.2 60.6 36.4-46.3 fL RDW Coefficient of Variation 19.3 19.6 11.5-14.5 % Immature Granulocyte % (Auto) 0.2 0.1 % Immature Granulocyte # (Auto) 0.03 0.01 0.00-0.02 K/uL Prothrombin Time 11.5 9.0-12.0 SECONDS Prothromb Time International Ratio 1.1 0.9-1.1 Activated Partial Thromboplast Time 27.3 21.0-31.0 SECONDS Partial Thromboplastin Ratio 1.1 Sodium Level 140 140 136-145 mmol/L Potassium Level 2.8 3.0 3.5-5.1 mmol/L Chloride Level 97 98 98-107 mmol/L Carbon Dioxide Level 33 34 21-32 mmol/L Anion Gap 10.0 20.0 8.0 3-11 mmol/L Blood Urea Nitrogen 18 16 7-18 mg/dl Creatinine 1.30 1.10 0.60-1.40 mg/dl Est Creatinine Clear Calc Drug Dose 104.8 125.2 ml/min Estimated GFR () 75.8 92.8 Estimated GFR (Non- 65.4 80.1 BUN/Creatinine Ratio 13.5 14.4 10-20 Random Glucose 133 92 70-99 mg/dl Calcium Level 8.8 8.8 8.5-10.1 mg/dl Magnesium Level 1.9 2.2 1.8-2.4 mg/dl Total Bilirubin 0.7 0.2-1 mg/dl Aspartate Amino Transf (AST/SGOT) 31 15-37 U/L Alanine Aminotransferase (ALT/SGPT) 57 12-78 U/L Alkaline Phosphatase 57 45-117 U/L Troponin I < 0.015 < 0.015 0-0.045 ng/ml Pro-B-Type Natriuretic Peptide 70 0-450 pg/ml Total Protein 8.1 6.4-8.2 gm/dl Albumin 3.7 3.4-5.0 gm/dl Globulin 4.4 2.5-4.0 gm/dl Albumin/Globulin Ratio 0.8 0.9-2 Lipase 219 73-393 U/L Thyroid Stimulating Hormone (TSH) 0.490 0.300-4.500 uIu/ml Lyme Disease IgG Antibody NEG NEG Lyme Disease IgM Antibody NEG NEG Bedside Hemoglobin 13.9 14.6 14.0-18.0 g/dl Bedside Hematocrit 41 43 42-52 % Bedside Blood Gas pH (LAB) 7.47 7.35-7.45 Bedside Blood Gas pCO2 (LAB) 43 35-46 mmHg Bedside Blood Gas pO2 (LAB) 49 80-95 mmHg Bedside Blood Gas HCO3 (LAB) 31 19-24 meq/L Bedside Blood Gas Total CO2 33 24-31 mEq/l Bedside Blood Gas Base Excess (LAB) 8.0 -9-1.8 meq/L Bedside Blood Gas O2 Saturation 87.0 90-95 % Bedside Sodium 138 139 135-144 mEq/L Bedside Potassium 2.7 2.7 3.3-5.0 mEq/L Bedside Chloride 92 101-112 mEq/L Bedside Total CO2 30 24-31 mEq/l Bedside Blood Urea Nitrogen 17 7-18 mg/dl Bedside Creatinine 1.2 0.6-1.3 mg/dl Bedside Glucose (other) 141 70-99 mg/dl Bedside Ionized Calcium (Randy) 1.02 1.12-1.32 mmol/l
--- NOTE | 2016-10-11 11:43 | DIAGNOSTIC IMAGING REPORT ---
CHEST ONE VIEW PORTABLE HISTORY: Short of breath. COMPARISON: Chest 09/03/2016. FINDINGS: Small bilateral pleural effusions and cardiomegaly. Diffuse interstitial thickening has slightly progressed. Scattered linear densities may represent scarring are not significantly changed. No pneumothorax. IMPRESSION: Slight progression of the diffuse interstitial thickening and small bilateral pleural effusions. This favors mild pulmonary edema on the background of chronic interstitial lung disease. Electronically signed by: Nick Ca M.D. 10/11/2016 11:42 AM Dictated Date/Time: 10/11/2016 11:40 AM
[2016-10-11] MEDS: TRAMADOL HCL 50 MG TAB PO SCH ×2 (15:28→20:53)
[2016-10-11] MEDS: ENOXAPARIN 40 MG/0.4 ML SYR SC SCH (20:53)
[2016-10-12 03:56] VITALS: BP 109/62; PULSE 85; TEMP 36.3; O2SAT 95
[2016-10-12] MEDS: TRAMADOL HCL 50 MG TAB PO SCH ×3 (03:57→15:17)
[2016-10-12 07:21] LABS: BUN/CREATININE RATIO 15.3 (10-20); CALCIUM 8.8 mg/dl (8.5-10.1); CREATININE 1.1 mg/dl (0.60-1.40); POTASSIUM 3.2 mmol/L (3.5-5.1)
[2016-10-12 07:43] VITALS: BP 111/72; PULSE 84; TEMP 36.4; O2SAT 97
[2016-10-12 07:45] VITALS: PULSE 88; O2SAT 96
[2016-10-12] MEDS: BUDESONIDE 0.5 MG/2 ML VIAL (PULMICORT) INH SCH (07:45)
[2016-10-12] MEDS: PANTOprazole SOD 40 MG TAB PO SCH (08:54)
[2016-10-12] MEDS: TAMSULOSIN HCL 0.4 MG CAP PO SCH (08:55)
[2016-10-12] MEDS: POTASSIUM CHLORIDE 20 MEQ TABCR PO SCH (08:55)
[2016-10-12] MEDS: TORSEMIDE 20 MG TAB PO SCH ×2 (08:55→16:36)
[2016-10-12] MEDS: CITALOPRAM 20 MG TAB PO SCH (08:55)
[2016-10-12] MEDS: SPIRONOLACTONE 25 MG TAB PO SCH ×2 (08:55→16:36)
[2016-10-12] MEDS: ASPIRIN 81 MG ECTAB PO SCH (08:55)
[2016-10-12] MEDS: LOSARTAN POTASSIUM 25 MG TAB PO SCH (08:56)
--- NOTE | 2016-10-12 11:03 | Progress Note ---
Medicine Progress Note Date & Time of Visit: October 12, 2016 at 10:46. Subjective patient seen resting in bedside chair states right posterior rib pain is improving about 4/6 today still worse with deep inspiration and moving upper body denies dyspnea, cough, sputum, chest pain, palpitations, dizziness no other symptoms Objective Last 8 Hrs Date Time Temp Pulse Resp B/P Pulse Ox O2 Delivery O2 Flow Rate FiO2 10/12/16 08:00 Nasal Cannula 3.0 10/12/16 07:45 88 16 96 Nasal Cannula 3.0 10/12/16 07:43 36.4 84 20 111/72 97 Nasal Cannula 3.0 10/12/16 04:00 Nasal Cannula 3.0 10/12/16 03:56 36.3 85 21 109/62 95 BiPAP 6.0 Physical Exam: General- oriented x 3 ,not in distress, speaks in sentences with no effort Head- atraumatic Eyes- EOMI, anicteric ENT- oropharynx clear Neck- supple, no JVD, no adenopathy Lungs- clear to auscultation b/l (+) small area of tenderness on the right posterior lower rib area, no warmth/ erythema/hematoma/swelling Heart- regular rhythm; no murmur, normal rate Abdomen- normal bowel sounds, soft, nontender, no masses or hepatosplenomegaly Extremities- no pretibial edema, no calf tenderness Neuro- alert, oriented x 3; no gross focal deficits Skin- warm & dry Laboratory Results: Last 24 Hours Test 10/12/16 06:20 Sodium Level 141 mmol/L Potassium Level 3.2 mmol/L Chloride Level 100 mmol/L Carbon Dioxide Level 36 mmol/L Anion Gap 5.0 mmol/L Blood Urea Nitrogen 17 mg/dl Creatinine 1.10 mg/dl Est Creatinine Clear Calc Drug Dose 126.0 ml/min Estimated GFR () 92.8 Estimated GFR (Non- 80.1 BUN/Creatinine Ratio 15.3 Random Glucose 109 mg/dl Calcium Level 8.8 mg/dl Assessment & Plan Atypical right-sided chest/flank pain w/ SOB Likely secondary to Pleurisy , Muscular Strain -- ACS ruled out -- reproducible on palpation -- No CT evidence of Pulmonary Embolism,no pneumonia and or Pneumothorax -- given additional Prednisone and Ultram PRN started pain improving --discharge on PRN Tramadol, Ibuprofen no heavy lifting, continue ambulating ff up with PCP this Tuesday Chronic respiratory failure secondary to right-sided heart failure ANGELES as per records -- no overt signs of overload at baseline 3 liters via nasal cannula -- continue Torsemide, Aldactone Hypok - likely from Diuretics - 3.2 this morning - 40meq K given - repeat at 1 pm History of sarcoidosis on chronic prednisone Continue current dose of Steroid Hypertension stable Chronic anemia, hemoglobin at baseline DVT prophylaxis, Lovenox subQ. Full code. Disposition possible d/c this afternoon Current Inpatient Medications: Current Inpatient Medications Medications (Trade) Dose Ordered Sig/Marian Route Start Time Stop Time Status Last Admin Dose Admin Ioversol (Optiray 320) 115 ml UD PRN IV 10/10/16 19:15 10/14/16 19:14 Enoxaparin Sodium (Lovenox Inj) 40 mg Q24H SC 10/10/16 22:00 11/09/16 21:59 10/11/16 20:53 40 MG Acetaminophen (Tylenol Tab) 650 mg Q4H PRN PO 10/10/16 21:00 11/09/16 20:59 Nitroglycerin (Nitrostat Tab) 0.4 mg UD PRN SL 10/10/16 21:00 11/09/16 20:59 Aspirin (Ecotrin Tab) 81 mg DAILY PO 10/11/16 09:00 11/10/16 08:59 10/12/16 08:55 81 MG Budesonide (Pulmicort Respules 0.5MG/ 2ML Neb Soln) 1 mg BIDR INH 10/11/16 08:00 11/10/16 07:59 10/12/16 07:45 1 MG Citalopram Hydrobromide (celeXA TAB) 20 mg DAILY PO 10/11/16 09:00 11/10/16 08:59 10/12/16 08:55 20 MG Docusate Sodium (coLACE CAP) 100 mg BID PRN PO 10/10/16 21:00 11/09/16 20:59 Folic Acid (Folvite Tab) 1 mg DAILY PO 10/11/16 09:00 11/10/16 08:59 10/12/16 08:55 1 MG Losartan Potassium (coZAAR TAB) 25 mg DAILY PO 10/11/16 09:00 11/10/16 08:59 10/12/16 08:56 25 MG Methotrexate (Methotrexate Tab) 20 mg Luciano@0900 PO 10/17/16 09:00 11/16/16 08:59 Potassium Chloride (Klor-Con Tab) 40 meq DAILY PO 10/11/16 09:00 11/10/16 08:59 10/12/16 08:55 40 MEQ Prednisone (PredniSONE TAB) 10 mg QAM PO 10/11/16 09:00 11/10/16 08:59 10/12/16 08:56 10 MG Spironolactone (Aldactone Tab) 25 mg BID17 PO 10/10/16 21:00 11/09/16 20:59 10/12/16 08:55 25 MG Tamsulosin HCl (Flomax Cap) 0.4 mg DAILY PO 10/11/16 09:00 11/10/16 08:59 10/12/16 08:55 0.4 MG Torsemide (Demadex Tab) 80 mg BID17 PO 10/11/16 09:00 11/10/16 08:59 10/12/16 08:55 80 MG Triamcinolone Acetonide (Nasacort Allergy 24hr) 2 sprays DAILY PRN NILDA 10/10/16 21:00 11/09/16 20:59 Miscellaneous Information (Order Awaiting Action) 1 ea QS N/A 10/11/16 00:00 11/10/16 00:00 Pantoprazole Sodium (Protonix Tab) 40 mg DAILY PO 10/11/16 09:00 11/10/16 08:59 10/12/16 08:54 40 MG Morphine Sulfate (MoRPHine SULFATE INJ) 4 mg Q4H PRN IV 10/10/16 21:00 10/24/16 20:59 Ipratropium [place] (Atrovent 0.02% 0.5MG/2.5ML Neb) 0.5 mg Q4H PRN INH 10/10/16 21:45 11/09/16 21:44 10/11/16 07:09 0.5 MG Levalbuterol (Xopenex 1.25MG/ 0.5ML Neb) 1.25 mg Q4H PRN INH 10/10/16 21:45 11/09/16 21:44 10/11/16 07:09 1.25 MG Miscellaneous (Iv Fluids Completed) 1 ea PRN PRN N/A 10/10/16 22:30 10/10/17 22:29 Tramadol HCl (Ultram Tab) not relieved by tylenol @ Q6H PO 10/11/16 15:00 11/10/16 14:59 10/12/16 08:54 50 MG
[2016-10-12 12:12] VITALS: BP 136/83; PULSE 79; TEMP 36.3; O2SAT 95
[2016-10-12] MEDS ORDERED: POTASSIUM CHLORIDE 20 MEQ TABCR PO ONE (14:30)
[2016-10-12 15:44] VITALS: BP 136/77; PULSE 96; TEMP 36.4; O2SAT 92
[2016-10-12 16:30] VITALS: BP 136/77; PULSE 96; TEMP 36.4; O2SAT 92
[2016-10-12] MEDS ORDERED: IBUP-1277 PO (16:51)
[2016-10-12] MEDS ORDERED: ULT50X PO ×2 (16:51→16:54)
[2016-10-12] MEDS ORDERED: MCRK20 PO (16:51)
--- NOTE | 2016-10-12 17:05 | Discharge Instructions ---
Discharge Instructions Date of Service October 12, 2016. Admission Reason for Admission: Chest Pain Discharge Discharge Diagnosis / Problem: RIGHT FLANK/BACK PAIN Discharge Goals Goal(s): Diagnostic testing, Therapeutic intervention Activity Recommendations Activity Limitations: as noted below (NO HEAVY EXERTION UNTIL RE-EVALUATED BY PRIMARY CARE PHYSICIAN) NO HEAVY LIFTING UNTIL RE-EVALUATED BY PRIMARY CARE PHYSICIAN. ALWAYS TAKE IBUPROFEN WITH A FULL STOMACH. ENSURE ADEQUATE DAILY FLUID INTAKE. CALL PRIMARY CARE PHYSICIAN OR RETURN TO THE ER IMMEDIATELY IF WITH INCREASING PAIN, SHORTNESS OF BREATH, COUGH, FEVER/CHILLS, WEAKNESS. FOLLOW UP WITH DR. ANDERSON ON SATURDAY OCTOBER 15, 2016 AT 2:05 PM. Current Hospital Diet Patient's current hospital diet: AHA Diet (Heart Healthy) Discharge Diet Recommended Diet: AHA Diet (Heart Healthy) Pending Studies Studies pending at discharge: yes List of pending studies: REPEAT BLOOD WORK: PARTIAL RENAL PROFILE ON FOLLOW UP WITH DR. ANDERSON. Medical Emergencies . Who to Call and When: Medical Emergencies: If at any time you feel your situation is an emergency, please call 911 immediately. . Non-Emergent Contact Non-Emergency issues call your: Primary Care Provider Call Non-Emergent contact if: you have a fever, your pain is not controlled, your pain is worsening, you have any medication questions . . "Provider Documentation" section prepared by Mark Ignacio. . VTE Core Measure Inpt VTE Proph given/why not?: Enoxaparin (Lovenox) [place] Drug Monitoring Program Search Results: patient reviewed within database, no issues identified
--- NOTE | 2016-10-12 17:16 | Discharge Summary ---
Discharge Summary Date of Service October 12, 2016. Discharge Summary Admission Date: October 11, 2016 at 12:14 Discharge Date: October 12, 2016 Discharge Disposition: Home Principal Diagnosis: Atypical right-sided chest/flank pain Likely secondary to Pleurisy , Muscular Strain Secondary Diagnoses/Problems: Please refer to hospital course below for further details. Procedures: CT ANGIOGRAM OF THE CHEST CLINICAL HISTORY: Right-sided chest pain. COMPARISON STUDY: 08/31/2016 TECHNIQUE: Following the IV administration of 115 mL of Optiray-320, CT angiogram of the thorax was performed from the thoracic inlet to the lung bases utilizing the pulmonary embolus protocol. Images are reviewed in the axial, sagittal, and coronal planes. IV contrast was administered without complication. MIP imaging was performed. CT DOSE: 768.29 mGy.cm FINDINGS: There is cholelithiasis. There is hepatic steatosis. There is a stable 45 mm lesion within the posterior aspect of the right lobe of the liver possibly reflecting focal fatty sparing. There are calcified mediastinal and hilar lymph nodes. This may be secondary to the patient's reported sarcoidosis. There was no evidence of thoracic aortic dilatation. There were no pulmonary artery filling defects to indicate acute pulmonary embolism. There are increasing bilateral pleural effusions There are stable areas of presumed atelectasis/scarring. There is no acute parenchymal consolidation. There are areas of interstitial thickening. There are scattered tiny nodules, similar to the prior study IMPRESSION: 1. No CT evidence of acute pulmonary embolism 2. Calcified stylohyoid lymph nodes consistent with the clinical history of sarcoidosis 3. Stable reticulonodular opacities, a finding again likely secondary to the patient's sarcoidosis 4. Increasing bilateral pleural effusions 5. Cholelithiasis 6. Hepatic steatosis. CT SCAN OF THE ABDOMEN AND PELVIS WITHOUT CONTRAST CLINICAL HISTORY: Flank pain COMPARISON STUDY: MRI the liver dated 09/19/2012 TECHNIQUE: CT scan of the abdomen and pelvis was performed from the lung bases to the proximal femurs. Images are reviewed in the axial, sagittal, and coronal planes. IV contrast was not administered for this examination. CT DOSE: 1750.00 mGy.cm FINDINGS: Lower chest: There are bilateral calcified hilar lymph nodes. There are small bilateral pleural effusions. There are bilateral reticulonodular opacities, possibly secondary to the patient's known sarcoidosis. Liver: There is hepatic steatosis. There is a stable 4.5 cm focus of increased attenuation within the right lobe. Gallbladder: There is a rim calcified gallstone. Spleen: Normal in size and attenuation. Pancreas: Unremarkable. Adrenal glands: Unremarkable. Kidneys: There is renal contrast excretion secondary to a prior contrast-enhanced CT scan the chest. No solid renal masses are visualized. Bowel: There are no transition zones indicate bowel obstruction. There is no acute diverticulitis. The appendix appears tiny. There are no findings to indicate acute appendicitis. Peritoneum: There is no intraperitoneal free air or abdominal ascites. There is a small fat-containing left inguinal hernia. Vasculature: The abdominal aorta is normal in course and caliber. Adenopathy: None. Pelvic viscera: There is contrast in the bladder secondary to a prior contrast-enhanced CT scan Skeletal structures: There is a mild superior endplate T2 compression deformity likely old IMPRESSION: 1. No evidence of bowel obstruction. No evidence of free air 2. No evidence of acute appendicitis. No evidence of acute diverticulitis 3. Cholelithiasis 4. Small fat-containing left inguinal hernia 5. Small bilateral pleural effusions 6. Bilateral reticulonodular pulmonary opacities, possibly secondary to the patient's sarcoidosis 7. Hepatic steatosis. 4.5 cm right lobe hepatic mass, unchanged in size from an September [address] HEAD WITHOUT CONTRAST (CT) IMPRESSION: No acute intracranial findings Pending Studies/Follow-Up: Repeat potassium and renal function on follow up October 15, 2016 (re: low K and NSAIDs started); Please refer to hospital course below for further details. Medication Reconciliation New Medications: Ibuprofen (Advil) 200 Mg Tab 400 MG PO Q6H PRN for Pain for 7 Days, #20 TAB always take with a full stomach Potassium Chloride (Klor-Con M20) 20 Meq Tabcr 40 MEQ PO BID for 7 Days, #14 TABS 1 Refill Tramadol HCl (Tramadol HCl) 50 Mg Tab 50 MG PO Q6H PRN for Pain, #10 TAB 0 Refills Continued Medications: Alendronate Sodium (Fosamax) 70 Mg Tab 1 TAB PO WK for 28 Days, #4 TAB 11 Refills Aspirin (Aspirin Ec) 81 Mg Tab 81 MG PO DAILY Atovaquone (Mepron) 750 Mg/5 Ml Susp 1500 MG PO DAILY Budesonide (Pulmicort Respules 0.5MG/2ML) 0.5 Mg/2 Ml Nebu 2 ML INH BID, EA Citalopram Hydrobromide (Citalopram Hydrobromide) 20 Mg Tab 1 TAB PO DAILY for 30 Days, #30 TAB 5 Refills Docusate Sodium (Docusate Sodium) 100 Mg Cap 100 MG PO BID PRN for Constipation Fluticasone Furoate-Vilanterol (Breo Ellipta) 1 Inh Inh 1 INHA INH DAILY Folic Acid (Folvite) 1 Mg Tab 1 MG PO DAILY, TAB Guaifenesin/Codeine (Robitussin-Ac Syrup) Syrp 5 ML PO Q6H PRN for Cough for 7 Days Ipratropium-Albuterol (Combivent Respimat) 1 Aer Aer 1 PUFFS INH Q6 PRN for SOB/Wheezing, INH Ipratropium-Albuterol (Duoneb) 3 Ml Nebu 1 TREATMENT INH Q4H PRN for Shortness of Breath, INHA Losartan Potassium (Cozaar) 25 Mg Tab 25 MG PO DAILY, TAB Methotrexate Sodium (Methotrexate) 2.5 Mg Tab 20 MG PO WK, TAB TAKES ON TUESDAY. DO NOT TAKE FOLIC ACID ON SAME DAY. Omeprazole (Omeprazole) 20 Mg Tab 1 TAB PO DAILY for 90 Days, #90 TAB 1 Refill Prednisone (Prednisone) 5 Mg Tab 10 MG PO QAM, #60 Spironolactone (Aldactone) 25 Mg Tab 25 MG PO BID, TAB Tamsulosin HCl (Tamsulosin HCl) 0.4 Mg Cap 0.4 MG PO DAILY Torsemide (Torsemide) 20 Mg Tab 80 MG PO BID Triamcinolone Acetonide (Nasal (Nasacort Allergy 24Hr) 55 Mcg/Act Spr 2 SPRAYS NILDA DAILY PRN for ALLERGIC REACTION Discontinued Medications: Potassium Chloride Microencaps (Potassium Chloride Er) 20 Meq Tab 1 TAB PO DAILY for 90 Days, #90 TAB 3 Refills Admission Information HPI (per Admitting provider): This is a 45 y/o male with PMHx of Sarcoidosis on chronic prednisone, ANGELES on BIPAP HS, Diastolic CHF, HTN and other problems as outlined below who presents to the ED c/o worsening R flank pain since last night. Pt was admitted last month with R rib fractures and pneumothorax. Pt reports that since that time he continues to have R rib pain that is relieved with Tylenol. Last night, patient was sitting on the couch watching TV when he felt a "popping" sensation in the R flank followed by intense 10/10 pain. Pain is worse with inspiration and he has also noticed worsening SOB with exertion. He feels like these sxs reflect those he felt with the pneumatothorax. Pt denies fever/chills, PEDRAZA, visual changes, diaphoresis, chest pain, palpitations, wheezing, abd pain, N/V, bowel or bladder issues, LE edema, calf pain, unilateral weakness, slurred speech, difficulty ambulating or swallowing or lightheadedness/dizziness. In the ED, vitals are stable. K+ 2.8. Chest CTA + increasing bilat pleural effusions. No evidence of PE. Head CT negative. Pt is stable and will be admitted for further evaluation and treatment. 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, no motor/sensory deficits, alert , normal mood/affect, oriented x 3 Skin: normal color, warm/dry Hospital Course Atypical right-sided chest/flank pain Likely secondary to Pleurisy , Muscular Strain -- ACS ruled out -- reproducible on palpation -- No CT evidence of Pulmonary Embolism,no pneumonia and or Pneumothorax -- given additional Prednisone and Ultram PRN started pain improving patient states he is agreeable to be discharged --discharge on PRN Tramadol, Ibuprofen no heavy lifting, continue ambulating ff up with PCP this Tuesday, check PRP to monitor renal function Chronic respiratory failure secondary to right-sided heart failure ANGELES as per records -- no overt signs of overload at baseline 3 liters via nasal cannula -- continue Torsemide, Aldactone Hypokalemia - likely from Diuretics - given additional K 40meq PO - K on discharge 3.3 - discharge on K 40 meq po BID repeat PRP on follow up with PCP on Tuesday10/15/16 History of sarcoidosis on chronic prednisone Continue current dose of Steroid Hypertension stable Chronic anemia, hemoglobin at baseline Disposition d/c home today ff up with PCP on Tuesday10/15/16 Total time spent on discharge = 45 minutes This includes examination of the patient, discharge planning, medication reconciliation, and communication with other providers. Discharge Instructions Discharge Instructions Date of Service October 12, 2016. Admission Reason for Admission: Chest Pain Discharge Discharge Diagnosis / Problem: RIGHT FLANK/BACK PAIN Discharge Goals Goal(s): Diagnostic testing, Therapeutic intervention Activity Recommendations Activity Limitations: as noted below (NO HEAVY EXERTION UNTIL RE-EVALUATED BY PRIMARY CARE PHYSICIAN) NO HEAVY LIFTING UNTIL RE-EVALUATED BY PRIMARY CARE PHYSICIAN. ALWAYS TAKE IBUPROFEN WITH A FULL STOMACH. ENSURE ADEQUATE DAILY FLUID INTAKE. CALL PRIMARY CARE PHYSICIAN OR RETURN TO THE ER IMMEDIATELY IF WITH INCREASING PAIN, SHORTNESS OF BREATH, COUGH, FEVER/CHILLS, WEAKNESS. FOLLOW UP WITH DR. ANDERSON ON SATURDAY OCTOBER 15, 2016 AT 2:05 PM. Current Hospital Diet Patient's current hospital diet: AHA Diet (Heart Healthy) Discharge Diet Recommended Diet: AHA Diet (Heart Healthy) Pending Studies Studies pending at discharge: yes List of pending studies: REPEAT BLOOD WORK: PARTIAL RENAL PROFILE ON FOLLOW UP WITH DR. ANDERSON. Medical Emergencies . Who to Call and When: Medical Emergencies: If at any time you feel your situation is an emergency, please call 911 immediately. . Non-Emergent Contact Non-Emergency issues call your: Primary Care Provider Call Non-Emergent contact if: you have a fever, your pain is not controlled, your pain is worsening, you have any medication questions . . "Provider Documentation" section prepared by Mark Ignacio. . VTE Core Measure Inpt VTE Proph given/why not?: Enoxaparin (Lovenox)[place] Drug Monitoring Program Search Results: patient reviewed within database, no issues identified
[2016-10-17] MEDS ORDERED: METHOTREXATE 2.5 MG TAB PO SCH (09:00)
== END 2016-10-12 17:59 | disposition home health service (06) | DRG 563 ==
LOC: ENRESERVTM → ENRESERVDT → C.EDB 17:52 → C.2T 20:26 → OBSVTOIN 10-11 12:14
PROVIDERS: ADMIT Internal Medicine; ATTEND Internal Medicine
DX: S29.011A Strain of muscle and tendon of front wall of thorax, initial encounter (principal); Z68.42 Body mass index [BMI] 45.0-49.9, adult; I50.30 Unspecified diastolic (congestive) heart failure; J96.10 Chronic respiratory failure, unspecified whether with hypoxia or hypercapnia; E87.1 Hypo-osmolality and hyponatremia; B40.2 Pulmonary blastomycosis, unspecified; R07.89 Other chest pain; R10.9 Unspecified abdominal pain; T14.8 Other injury of unspecified body region; Z99.89 Dependence on other enabling machines and devices; Z99.81 Dependence on supplemental oxygen; M79.1 Myalgia; G47.33 Obstructive sleep apnea (adult) (pediatric); E66.9 Obesity, unspecified; I11.0 Hypertensive heart disease with heart failure; D64.9 Anemia, unspecified; E87.6 Hypokalemia; T50.2X5A Adverse effect of carbonic-anhydrase inhibitors, benzothiadiazides and other diuretics, initial encounter; X58.XXXA Exposure to other specified factors, initial encounter; I27.2 Other secondary pulmonary hypertension; D86.0 Sarcoidosis of lung; Z79.83 Long term (current) use of bisphosphonates; Z79.82 Long term (current) use of aspirin; Z79.51 Long term (current) use of inhaled steroids; Z79.52 Long term (current) use of systemic steroids; Z79.899 Other long term (current) drug therapy

== ENCOUNTER → 2017-01-05 | Outpatient (CLI) | payer OTHER ==
[~2017-01-05] MED LIST changes: -GFNSR600 PO; -LCTX PO; -LVQ750 PO; +MCRK20 PO; -POTA20TA13 PO; -PRD10 PO; +PRED-301 PO; +ULT50X PO; -[UNRECOGNIZED DRUG - CODE] PO
--- NOTE | 2017-01-06 05:56 | PAP/PSG TECHNICIAN REPORT ---
[facility] [employer] Checker Polysomnogram Report Study name: None Report date: 01/06/2017 Study date: 01/05/2017 Referring Physician: Tulio TRACEY M.D. Name: SCOTTIE PUGH Interpreting Physician: Matty Tracey M.D. Date of : 1970 Bakery Products Checker: Marco Antonio Workman RPSGT. Sex: Male Age: 46 StudyType: PSG PAP Weight: 344 lbs Height: 46 years, Height 5' 11" BMI: 47.97 Medications: IBUPROFEN 200 MG, DELTASONE 5 MG, FOLIC ACID 1 MG, FLOMAX 0.4 MG, PRILOSEC 20 MG, DEMADEX 20 MG, CELEXA 20 MG, ALDACTONE 25 MG, COZAAR 25 MG, MEPRON 750 MG/ML, METHOTREXATE 2.5 MG, PULMICORT 70 MG, COLACE 100 MG, ASPIRIN 81 MG, ACETAMINOPHEN 325 MG Patient History PATIENT HAD A SLEEP STUDY DONE IN 2013 AND HAS BEEN WEARING BIPAP. HE HAS GAINED WEIGHT SINCE THEN AND NEEDS TO HAVE A PRESSURE ADJUSTMENT. HE ALSO HAS HISTORY OF PULMONARY HYPERTENSION, HEART FAILURE, DEPRESSION AND CHRONIC RESPIRATORY FAILURE. CURRENTLY WEARS 6L/MIN OF SUPPLEMENTAL OXYGEN AT NIGHT. ESS = 7 RM 7 Parameters Monitored NPSG: E1-M2, E2-M1, Fp1-M2, Fp2-M1, F3-M2, F4-M2, F4-M1, C3-M2, C4-M2, C4-M1, O1-M2, O2-M2, O2-M1, T3-M2, T4-M1, P3-M2, P4-M1, CHIN1, CHIN2, HR, EKG, Legs, PFLOW, SNOR, FLOW, CFLOW, Tidal Volume, THOR, ABDO, SpO2, PLTH, CPRESS, ETCO2 Wave, ETCO2, pH Sleep Architecture Sleep Stages Time at Lights Off 10:40:32 PM STAGES Time (min.) TST (%) Time at Lights On 5:25:02 AM Wake 157.0 -- Total Recording Time (TRT) 405.00 min. N1 15.5 6 Total Sleep Period (TSP) 335.0 min. N2 171.0 69 Total Sleep Time (TST) 247.5min. N3 37.5 15 Awake Time 157.5 min. REM 23.5 9 Wake after Sleep Onset 88.5 min. Sleep Efficiency (SE) 61 % Sleep Onset Latency (SEEMA) 68.5 min. Number of Stage 1 Shifts None Awakenings 18 Stage Changes 58 Number of REM periods 1 REM 23.5 9 REM Latency 311.5 min. NREM 224.0 91 Body Position Analysis Supine Right Left Side Prone Vertical Total Sleep Time (min.) 33.9 126.7 93.5 220.20 0.0 0.0 Total Sleep Time (%) 11% 51% 38% 89 0% N/A% Total Sleep Time REM (min.) 0.0 0.0 23.5 None 0.0 0.0 Total Sleep Time NREM (min.) 27.3 126.7 70.0 None 0.0 0.0 Intermittent Wake (min.) 6.6 67.5 82.9 None 0.0 0.0 Total Sleep Period (%) 10% None None None None None Arousals Myoclonus (PLM) * Events Count Index Events Count Index Spontaneous 49 12 Events Awake (PLMW) 171 65.4 Respiratory 6 1.9 Events Asleep w/ Arousal (PLMA) 5 1.2 PLM 5 1 Events Asleep w/o Arousal (PLMS) 91 22.1 Snoring 15 4 Total Asleep 96 23.3 Total 75 18 Total 267 40 Respiratory Analysis * CA OA MA CH H RERA Total Count 0 2 0 0 19 2 21 Index 0.0 0.5 0.0 0 4.6 0 5.6 Mean Duration 0.0 11.9 0.0 0.00 16.1 14.5 15.6 Longest Duration 0.0 13.2 0.0 0.00 0.0 15.1 30.6 Respiratory Event Summary Total Supine ~Supine Right Left Prone REM NREM Apneas Count 2 0 2 0 2 N/A 0 2 Index 0.5 0 1 0.0 1.3 N/A 0 1 Hypopneas (4% Desat) Count 19 1 18 6 12 N/A 5 14 Index 4.6 2.2 5 2.8 7.7 N/A 12.8 3.8 Apneas & All Hypopneas Count 21 1 20 6 14 N/A 5 16 Index 5.1 2 5 3 9 N/A 12.8 4.3 Respiratory Events (Line Analyst+All Hyp+RERA) Count 21 2 21 7 14 N/A 5 16 Index 5.6 4 6 3.3 9.0 N/A 12.8 4.8 Respiratory Related Arousal Count 6 2 7 3 4 N/A 0 8 Index 1.9 2 2 1 3 N/A 0 2 Snoring Analysis Supine Right Left Prone REM NREM Total Snore duration 28.3 min Snores count 13 892 180 N/A 35 1,050 1,085 Snore mean duration 1.6 Sec Snores index 29 422 116 N/A 89.4 281.3 263.0 TST with snoring (%) 11.5% Desaturation Event Summary: Minimum %SpO2 Event Count Mean/Min/Max Duration(sec.) Desaturation Index % Time In Bed > 90 36 29.5 / 7.3 / 60.0 5.4 98.6 86 - 90 0 N/A 0.0 1.3 81 - 85 0 N/A 0.0 0.1 76 - 80 0 N/A 0.0 0.0 71 - 75 0 N/A 0.0 0.0 66 - 70 0 N/A 0.0 0.0 61 - 65 0 N/A 0.0 0.0 56 - 60 0 N/A 0.0 0.0 51 - 55 0 N/A 0.0 0.0 < 50 0 N/A 0.0 0.0 Total REM NREM Awake <50% 0.0 min. 0.0 min. 0.0 min. 0.0 min. 51 - 60% 0.0 min. 0.0 min. 0.0 min. 0.0 min. 61 - 70% 0.0 min. 0.0 min. 0.0 min. 0.0 min. 71 - 80% 0.0 min. 0.0 min. 0.0 min. 0.0 min. 81 - 90% 5.7 min. 1.1 min. 3.4 min. 1.1 min. 91 - 100% 398.2 min. 22.3 min. 220.6 min. 155.3 min. Average 95 94 94 96 Minimum SpO2 81 89 87 81 Desaturation Event Index 5.3 12.8 4.6 6.1 # Desat. Events below 89% 1 N/A N/A 1 Time(%) with Saturation below 89% 0.2 0.0 0.0 0.1 Time(min.) with Saturation below 89% 0.7 0.0 0.2 0.6 Time (mins) REM (mins) NREM (mins) % of TST SpO2 Below 90% 2 2 N0 0.2 SpO2 Below 88% 0 0 0 0 Heart Rate Analysis Min (bpm) Max (bpm) Average (bpm) Awake 70 107 84 NREM 67 97 78 REM 64 80 71 Overall 64 97 78 Supplemental O2 Values Minimum O2 level: None Value Start Time End Time [employer] Checker Comments Mr. Pugh slept in the right, left and supine positions. No cardiac arrhythmia noted. Leg movements noted. No bruxism noted. PAP initiated at an IPAP of +17 CMH2O and an EPAP of +9 CMH2O up-titrated to an optimal level of: IPAP 24 CMH2O, EPAP 14 CMH20. The patient brought in his own full-face mask that was used during the study. Mr. Pugh awoke to use the restroom 0 times during the night. Mr. Pugh stated I did not sleep as well as I do when I am in my own bed. Supplemental oxygen was started at 6l/min per doctor's order. The final report will be interpreted and signed by a sleep physician. The completed physician report will then be placed in the patient medical record. Therapy Event: Therapy (cm H20) 20/02 1824/03 Total Time at Pressure (min.) 170.6 26.7 11.8 15.4 6.7 85.5 71.4 16.4 TST at Pressure (min.) 37.6 13.7 11.8 13.9 6.7 82.0 66.4 15.4 # Periods 1 1 1 1 1 1 1 1 Sleep Onset (min.) 68.5 0.0 0.0 0.0 0.0 0.0 0.0 0.0 REM Onset (min.) N/A N/A N/A N/A N/A N/A 63.3 0.0 Sleep Efficiency % 22 51 100 90 100 95 93 93 Wakefulness (%) 78.0 48.6 0.0 9.8 0.0 4.1 7.0 6.1 Wakefulness (min.) 133.0 13.0 0.0 1.5 0.0 3.5 5.0 1.0 NREM 1 (%) 5.3 11.2 0.0 6.5 0.0 1.8 1.4 0.0 NREM 1 (min.) 9.0 3.0 0.0 1.0 0.0 1.5 1.0 0.0 NREM 2 (%) 16.8 40.1 100.0 83.7 29.6 55.8 80.2 0.0 NREM 2 (min.) 28.6 10.7 11.8 12.9 2.0 47.7 57.3 0.0 NREM 3 (%) 0.0 0.0 0.0 0.0 70.4 38.3 0.0 0.0 NREM 3 (min.) 0.0 0.0 0.0 0.0 4.7 32.8 0.0 0.0 REM (%) 0.0 0.0 0.0 0.0 0.0 0.0 11.3 93.9 REM (min.) 0.0 0.0 0.0 0.0 0.0 0.0 8.1 15.4 # Arousals 17 6 3 9 0 15 24 1 Arousal Index 27.1 26.2 15.2 39.0 0.0 11.0 21.7 3.9 # Snore 71 70 32 73 90 616 117 16 Snore Index 113.4 306.0 162.1 316.2 802.0 450.8 105.7 62.3 AHI 3.2 17.5 30.4 13.0 0.0 0.0 3.6 7.8 AHI Supine N/A N/A N/A 10.3 N/A 0.0 0.0 N/A AHI Non-Supine 3.2 17.5 30.4 14.9 0.0 0.0 4.2 7.8 NREM AHI 3.2 17.5 30.4 13.0 0.0 0.0 1.0 N/A REM AHI N/A N/A N/A N/A N/A N/A 22.2 7.8 RDI 4.8 17.5 30.4 17.3 0.0 0.0 3.6 7.8 # Obstructive 0 1 1 0 0 0 0 0 # Central Ap 0 0 0 0 0 0 0 0 # Mixed 0 0 0 0 0 0 0 0 # Hypopneas 2 3 5 3 0 0 4 2 RERAS 1 0 0 1 0 0 0 0 Total Respiratory Events 3 4 6 4 0 0 4 2 Time Below SpO2 89.00% (min.) 0.0 0.0 0.0 0.0 0.0 0.2 0.0 0.0 Mean NREM SpO2 (%) 96 96 95 95 95 93 94 N/A Mean REM SpO2 (%) N/A N/A N/A N/A N/A N/A 93 95 Mean Sleep SpO2 (%) 96 96 95 95 95 93 94 95 Min NREM SpO2 (%) 92 90 91 90 94 87 90 N/A Min REM SpO2 (%) N/A N/A N/A N/A N/A N/A 89 91 Position Supine (min.) 0.0 0.0 0.0 5.8 0.0 12.2 9.3 0.0 Position Non-supine (min.) 37.6 13.7 11.8 8.1 6.7 69.8 57.1 15.4 LM Index Sleep 52.7 30.6 50.6 30.3 8.9 5.1 25.3 11.7 LM Index NREM 52.7 30.6 50.6 30.3 8.9 5.1 21.6 N/A LM Index REM N/A N/A N/A N/A N/A N/A 51.8 11.7 Mean Heart Rate (bpm) 84 81 79 82 80 78 72 71 Min Heart Rate (bpm) 76 71 73 73 77 72 65 64
--- NOTE | 2017-01-17 21:39 | POLYSOMNOGRAPH REPORT ---
HEAD ESTHETICIAN: Mr. Pugh is a 46-year-old male who currently wears BIPAP at bedtime. He has a history of pulmonary hypertension, heart failure, depression, chronic respiratory failure, and he wears 6 liters of supplemental oxygen at night. He is sent to the lab for a retitration study, but this will be performed on his baseline of 6 liters of oxygen. It will also start at a pressure of 17/9. Following the technical and digital specifications of the [place] [employer] (AASM) a standard diagnostic polysomnogram was performed monitoring EEG, EOG, EMG (chin and leg deviations), oxygen saturation, body position, digital video, respiratory effort and airflow. The sleep Stage and event scoring was based on the AASM Manual for the Scoring of Sleep and Associated Events 2007 edition. Apneas are defined as a drop in the peak thermal sensor excursion by >90% of baseline for at least 10 seconds. Hypopneas were scored using the 4% oxygen desaturation rule (4A-Medicare) and a decrease in the nasal pressure excursions by >30% of baseline for at least 10 seconds. Respiratory effort-related arousal (RERA's) is defined as a sequence of breaths lasting at least 10 seconds characterized by increasing respiratory effort or flattening of the nasal pressure waveform leading to an arousal from sleep when the sequence of breaths does not meet criteria for an apnea or hypopnea. Apnea Hypopnea index (AHI) is defined as the number of apneas and hypopneas occurring in an hour of sleep. Respiratory disturbance index (RDI) is defined as the number of apneas, hypopneas, and RERA's occurring in an hour of sleep. Mr. Pollards total sleep period time was 335 minutes. Total sleep time was 247.5 minutes. Sleep efficiency was 61%. Latency to sleep onset was 68.5 minutes with wake after sleep onset of 88.5 minutes. Total non-REM sleep time was 224 minutes. He spent 6% of that time in N1 sleep, 69% in N2 sleep and 15% in N3 sleep. REM latency was prolonged at 311.5 minutes. He spent 23.5 minutes in REM sleep or 9% of total sleep time. There were 75 cortical arousals from sleep. Forty nine of these arousals were spontaneous, 6 were due to respiratory events, 5 due to periodic limb movements of sleep and 15 were due to snoring. There were 96 periodic limb movements noted on this test. Limb movement index was 23.3. Limb movement with arousal index was 1.2. There were no central, 2 obstructive and no mixed apnea on this test. There were 19 hypopneas and 2 RERAs. Apnea-hypopnea index was 5.1 on this titration. REM AHI was 12.8. 1085 snoring events were recorded. Total sleep time with snoring was 11.5%. Mean saturation was 95% with desaturations to 81%. Saturations were less than 89% for 0.7 minutes of recorded time. There was no cardiac ectopy noted on this study. Heart rates ranged from a low of 64 beats per minute to a high of 97 beats per minute during sleep. As stated above, this was a CPAP/BiPAP titration study. He began on a BiPAP pressure of 17/9 with 6 liters of supplemental oxygen. Increasing pressures were needed to prevent hypopneas and arousals. He was observed on a pressure of 24/14 for 15 minutes and during that time he had 2 hypopneic events. He was observed on a pressure of 23/13 for 66.4 minutes, had 4 hypopneic events, and an AHI of 3.6. On these settings and 6 liters of oxygen, there were no desaturations noted. IMPRESSION AND PLAN: Successful BiPAP titration study in this patient with pulmonary hypertension and chronic respiratory failure on chronic oxygen. I would recommend that this patient be started on bilevel therapy of 24/14 and 6 liters of supplemental oxygen.
== END | disposition home or self-care (01) ==
LOC: C.NEUR 21:00
PROVIDERS: ATTEND Family Medicine
DX: G47.33 Obstructive sleep apnea (adult) (pediatric) (principal); J96.11 Chronic respiratory failure with hypoxia

== ENCOUNTER 2019-10-08 10:43 | Inpatient (IN) ==
[2019-10-08] MEDS ORDERED: SODIUM CHLORIDE 0.9% 1000ML 1,000 ML IV ONE (11:06)
--- NOTE | 2019-10-08 11:11 | Emergency Department Note ---
Impression & Plan Sepsis, Pulmonary sarcoidosis, Hypoxia ED Provider Note NAME: SCOTTIE CALIX AGE: 48 SEX: M : 1970 ARRIVES VIA: Ambulance INFORMANT: Patient ED PROVIDER(S): Adonis Villanueva DO CHIEF COMPLAINT: Shortness of breath HPI: Patient is a 48-year-old male with a past medical history of pulmonary sarcoidosis chronically on 2 L nasal cannula presents the ER for shortness of breath. He notes that the symptoms started this past Tuesday. They have been gradually worsening. He admits to a yellow productive cough with some blood- tinged sputum present. He admits to shaking chills. Admits to chest pain only with coughing as well. Denies any belly pain nausea vomiting diarrhea. No dysuria urgency or frequency. He denies any recent trips or travel. No exposure to anyone with coronavirus. No loss of taste or smell. He has been increasing his oxygen to 4 L at rest as opposed to 2. He notes he has been having family members, dropped off offer him. ROS: See above HPI for pertinent positives & negatives. A total of 10 systems reviewed and were otherwise negative. PAST MEDICAL HISTORY:See Below PAST SURGICAL HISTORY:See Below FAMILY HISTORY:See Below SOCIAL HISTORY:See Below HOME MEDICATIONS:See Below ALLERGIES:See Below VITALS:See Below PHYSICAL EXAMINATION: GENERAL: Sitting up in bed, ill-appearing, obese, talking in full sentences EYE EXAM: normal conjunctiva. OROPHARYNX: no exudate, no erythema, lips, buccal mucosa, and tongue normal and mucous membranes are moist NECK: supple, no nuchal rigidity, no adenopathy, non-tender LUNGS: Diminished bilateral bases with rhonchi.. Normal chest wall mechanics HEART: no murmurs, S1 normal and S2 normal ABDOMEN: abdomen soft, non-tender, normo-active bowel sounds, no masses, no rebound or guarding. BACK: Back is symmetrical on inspection and there is no deformity, no midline tenderness, no CVA tenderness. SKIN: no rashes and no bruising UPPER EXTREMITIES: upper extremities are grossly normal. LOWER EXTREMITIES: No pitting edema. Calves are equal bilateral NEURO EXAM: Normal sensorium, cranial nerves II-XII grossly intact, normal speech, no gross weakness of arms, no gross weakness of legs. MEDICAL DECISION MAKING: Patient is a 48-year-old male who presents the ER for shortness of breath associated with cough. Patient was found to be febrile and tachycardic as well as hypoxic. 88 to 89% on his normal 2 L nasal cannula which is abnormal for him as he notes he is normally 94%. IV was established blood work was obtained shows no significant leukocytosis or anemia. INR unremarkable. BMP with mild hyponatremia and hypokalemia. Creatinine slightly elevated at 1.59. LFTs were unremarkable. Troponin was detectable at 1.3. Patient denied any chest pain with exception of when he coughs. UA was negative. He was initially given small non-IV fluids. Chest x-ray appears to be consistent with CHF and questionable pneumonia. He was covered with broad-spectrum IV antibiotics including IV cefepime and Levaquin. Oxygen was titrated up to 4 L nasal cannula. Patient was updated at bedside. EKG showed new ST wave changes in the lateral leads. As he is febrile with a productive cough I do favor that this is infectious primarily followed by secondary demand ischemia. Discussed with Dr. Thrasher in regards to admission. Patient will likely need coronavirus testing as well. Appropriate precautions were taken with PPE and in a negative pressure room on the ER. Triage Nursing notes reviewed. Prior medical records reviewed Vital Signs: reviewed and remarkable for febrile and tachycardia and hypoxia Differential diagnosis: Differential diagnoses includes but is not limited to pneumonia, bronchitis, COPD/Asthma exacerbation, pneumothorax, pulmonary embolism, congestive heart f ailure, acute coronary syndrome ER treatment provided: See below Diagnostics interpreted by me: ECG: Sinus tachycardia rate of 110 Normal axis No PVCs Right bundle branch block ST depressions in the anterior lateral and inferior which are new from old in 2017. Cardiac Monitoring: An order was placed for continuous cardiac monitoring. The monitor shows a rate of 112 with sinus rhythm. Laboratory studies: As stated above and show below. Imaging studies: Portable AP upright 1 view of the chest shows interstitial infiltrates which appear to be consistent with CHF and pneumonia. Consultation(s): Discussed with Dr. velez from [facility]. ED COURSE: Procedures: none Critical Care: I have personally spent 40 minutes of critical care time in the direct management of this patient. This includes bedside care, interpretation of diagnostic studies, and testing, discussion with consultants, patient, and family members, and other required patient management activities. This 40 minutes is in excess of all separately billable procedures. Past Med/Surg History Social History Feels Safe at Home: Yes Smoking Status: Never smoker Allergies Allergies Allergy/AdvReac Type Severity Reaction Status Date / Time doxycycline Allergy Severe PEDRAZA Verified 10/10/16 18:29 Home Meds Home Medications Medication Instructions Recorded Confirmed aspirin [Claire Chewable Aspirin] 81 mg PO DAILY 10/08/19 10/08/19 citalopram 20 mg PO DAILY 10/08/19 10/08/19 digoxin [Digitek] 125 mcg PO DAILY 10/08/19 10/08/19 empagliflozin [Jardiance] 25 mg PO DAILY 10/08/19 10/08/19 ferrous sulfate 325 mg PO QAM 10/08/19 10/08/19 fluticasone furoate-vilanterol 1 inh INHALATION DAILY 10/08/19 10/08/19 [Breo Ellipta] folic acid 1 mg PO DAILY 10/08/19 10/08/19 losartan 25 mg PO DAILY 10/08/19 10/08/19 metformin 1,000 mg PO DAILY 10/08/19 10/08/19 methotrexate sodium 2.5 mg PO DIRECTED 10/08/19 10/08/19 omeprazole 20 mg PO QAM 10/08/19 10/08/19 potassium chloride 20 meq PO BID 10/08/19 10/08/19 prednisone 5 mg PO DAILY 10/08/19 10/08/19 semaglutide [Ozempic] 1 mg SUBCUT WK 10/08/19 10/08/19 spironolactone 25 mg PO BID 10/08/19 10/08/19 tamsulosin 0.4 mg PO DAILY 10/08/19 10/08/19 torsemide 80 mg PO BID 10/08/19 10/08/19 Results & Data (ED) Vital Signs Vital Signs - 24 hr 10/08/19 10:53 10/08/19 10:57 10/08/19 11:00 Temperature Temperature Source Pulse Rate 111 H 110 H 113 H Pulse Rate [Left Finger] Pulse Rate from SpO2 Sensor 111 H 109 H 114 H Respiratory Rate 24 25 H 24 Blood Pressure 108/65 113/67 Blood Pressure [Left Arm] Blood Pressure Mean 75 83 Blood Pressure Mean [Left Arm] Pulse Oximetry 92 91 90 Oxygen Delivery Method Oxygen Flow Rate Sepsis Recent Fever Within 48 Hours Sepsis New/Unexplained Change in Mental Status Sepsis Action Taken by Nursing 10/08/19 11:01 10/08/19 11:30 10/08/19 11:42 Temperature 38.0 C H Temperature Source Oral Pulse Rate 111 H 115 H Pulse Rate [Left Finger] 127 H Pulse Rate from SpO2 Sensor 112 H 115 H Respiratory Rate 20 21 26 H Blood Pressure 108/65 Blood Pressure [Left Arm] 113/67 Blood Pressure Mean 79 Blood Pressure Mean [Left Arm] 82 Pulse Oximetry 90 92 91 Oxygen Delivery Method Nasal Cannula Nasal Cannula Oxygen Flow Rate 4 4 Sepsis Recent Fever Within 48 Hours Yes Sepsis New/Unexplained Change in Mental Status No Sepsis Action Taken by Nursing No Action Required 10/08/19 12:00 10/08/19 12:01 Temperature Temperature Source Pulse Rate 111 H 109 H Pulse Rate [Left Finger] Pulse Rate from SpO2 Sensor 112 H 109 H Respiratory Rate 22 19 Blood Pressure 106/74 Blood Pressure [Left Arm] Blood Pressure Mean 86 Blood Pressure Mean [Left Arm] Pulse Oximetry 90 90 Oxygen Delivery Method Oxygen Flow Rate Sepsis Recent Fever Within 48 Hours Sepsis New/Unexplained Change in Mental Status Sepsis Action Taken by Nursing Laboratory Data Result diagrams: 10/08/19 11:31 10/08/19 11:31 Lab Results 10/08/19 10/08/19 10/08/19 Range/Units 11:31 11:31 11:31 WBC 10.12 (4.8-10.8) K/uL RBC 4.86 (4.7-6.1) M/uL Hgb 14.9 (14.0-18.0) g/dL Hct 44.6 (42-52) % MCV 91.8 (80-100) fL MCH 30.7 (25-34) pg MCHC 33.4 (32-36) g/dL RDW Std Deviation 54.4 H (36.4-46.3) fL RDW Coeff of María Elena 16.4 H (11.5-14.5) % Plt Count 231 (130-400) K/uL MPV 8.9 (7.4-10.4) fL Immature Gran % (Auto) 0.3 % Neut % (Auto) 85.2 % Lymph % (Auto) 4.8 % [place] % (Auto) 9.6 % Eos % (Auto) 0.0 % Baso % (Auto) 0.1 % Immature Gran # (Auto) 0.03 H (0.00-0.02) K/uL Neut # (Auto) 8.62 H (1.4-6.5) K/uL Lymph # (Auto) 0.49 L (1.2-3.4) K/uL [place] # (Auto) 0.97 H (0.11-0.59) K/uL Eos # (Auto) 0.00 (0-0.5) K/uL Baso # (Auto) 0.01 (0-0.2) K/uL PT 11.7 (9.0-12.0) Seconds INR 1.1 (0.9-1.1) APTT 38.7 H (21.0-31.0) Seconds PTT Ratio 1.4 D-Dimer (0-500) ug/L FEU Sodium 132 L (136-145) mmol/L Potassium 2.7 L (3.5-5.1) mmol/L Chloride 94 L (98-107) mmol/L Carbon Dioxide 28 (21-32) mmol/L Anion Gap 10.0 (3-11) BUN 25 H (7-18) mg/dl Creatinine 1.59 H (0.6-1.4) mg/dl Est Cr Clr Drug Dosing 74.6 ml/min Est GFR ( Amer) 58.2 Est GFR (Non-Af Amer) 50.2 BUN/Creatinine Ratio 15.6 (10-20) Glucose 131 H (70-99) mg/dl Lactate (0.4-2.0) mmol/L Calcium 8.0 L (8.5-10.1) mg/dl Magnesium 1.9 (1.8-2.4) mg/dl Total Bilirubin 0.6 (0.2-1) mg/dl AST 56 H (15-37) U/L ALT 42 (12-78) U/L Alkaline Phosphatase 55 (45-117) U/L Troponin I 1.340 H* (0-0.045) ng/ml Total Protein 7.7 (6.4-8.2) gm/dl Albumin 3.0 L (3.4-5.0) gm/dl Globulin 4.7 H (2.5-4.0) gm/dl Albumin/Globulin Ratio 0.6 L (0.9-2) Procalcitonin (0-0.5) ng/ml Urine Color Urine Appearance (Clear) Urine pH (4.5-7.5) Ur Specific [place] (1.000-1.030) Urine Protein (Negative) Urine Glucose (UA) (Negative) Urine Ketones (Negative) Urine Blood (Negative) Urine Nitrite (Negative) Urine Bilirubin (Negative) Urine Urobilinogen (Negative) Ur Leukocyte Esterase (Negative) Urine WBC (Auto) (0-5) /hpf Urine RBC (Auto) (0-4) /hpf U Hyaline Cast (Auto) (0-5) /lpf U Epithel Cells (Auto) (0-5) /lpf Urine Bacteria (Auto) (Negative) Amorphous Sediment (None Prsent) Urine Mucus (None Prsent) Digoxin (0.8-2.0) ng/ml Adenovirus (PCR) (NotDetected) B. pertussis DNA (PCR) (NotDetected) B.parapertussis DNA PCR (NotDetected) C. pneumoniae DNA (PCR) (NotDetected) Coronavirus OC43 (PCR) (NotDetected) Coronavirus HKU1 (PCR) (NotDetected) Coronavirus 229E (PCR) (NotDetected) Coronavirus NL63 (PCR) (NotDetected) Human Metapneumovir PCR (NotDetected) Influenza Type A (PCR) (NotDetected) Influenza Type B (PCR) (NotDetected) M. pneumoniae (PCR) (NotDetected) Parainfluenza 1 (PCR) (NotDetected) Parainfluenza 2 (PCR) (NotDetected) Parainfluenza 3 (PCR) (NotDetected) Parainfluenza 4 (PCR) (NotDetected) RSV (PCR) (NotDetected) Entero/Rhino (PCR) (NotDetected) 10/08/19 10/08/19 10/08/19 Range/Units 11:31 11:31 11:31 WBC (4.8-10.8) K/uL RBC (4.7-6.1) M/uL Hgb (14.0-18.0) g/dL Hct (42-52) % MCV (80-100) fL MCH (25-34) pg MCHC (32-36) g/dL RDW Std Deviation (36.4-46.3) fL RDW Coeff of María Elena (11.5-14.5) % Plt Count (130-400) K/uL MPV (7.4-10.4) fL Immature Gran % (Auto) % Neut % (Auto) % Lymph % (Auto) % [place] % (Auto) % Eos % (Auto) % Baso % (Auto) % Immature Gran # (Auto) (0.00-0.02) K/uL Neut # (Auto) (1.4-6.5) K/uL Lymph # (Auto) (1.2-3.4) K/uL [place] # (Auto) (0.11-0.59) K/uL Eos # (Auto) (0-0.5) K/uL Baso # (Auto) (0-0.2) K/uL PT (9.0-12.0) Seconds INR (0.9-1.1) APTT (21.0-31.0) Seconds PTT Ratio D-Dimer 3930 H* (0-500) ug/L FEU Sodium (136-145) mmol/L Potassium (3.5-5.1) mmol/L Chloride (98-107) mmol/L Carbon Dioxide (21-32) mmol/L Anion Gap (3-11) BUN (7-18) mg/dl Creatinine (0.6-1.4) mg/dl Est Cr Clr Drug Dosing ml/min Est GFR ( Amer) Est GFR (Non-Af Amer) BUN/Creatinine Ratio (10-20) Glucose (70-99) mg/dl Lactate 1.3 (0.4-2.0) mmol/L Calcium (8.5-10.1) mg/dl Magnesium (1.8-2.4) mg/dl Total Bilirubin (0.2-1) mg/dl AST (15-37) U/L ALT (12-78) U/L Alkaline Phosphatase (45-117) U/L Troponin I (0-0.045) ng/ml Total Protein (6.4-8.2) gm/dl Albumin (3.4-5.0) gm/dl Globulin (2.5-4.0) gm/dl Albumin/Globulin Ratio (0.9-2) Procalcitonin 0.66 H (0-0.5) ng/ml Urine Color Urine Appearance (Clear) Urine pH (4.5-7.5) Ur Specific [place] (1.000-1.030) Urine Protein (Negative) Urine Glucose (UA) (Negative) Urine Ketones (Negative) Urine Blood (Negative) Urine Nitrite (Negative) Urine Bilirubin (Negative) Urine Urobilinogen (Negative) Ur Leukocyte Esterase (Negative) Urine WBC (Auto) (0-5) /hpf Urine RBC (Auto) (0-4) /hpf U Hyaline Cast (Auto) (0-5) /lpf U Epithel Cells (Auto) (0-5) /lpf Urine Bacteria (Auto) (Negative) Amorphous Sediment (None Prsent) Urine Mucus (None Prsent) Digoxin (0.8-2.0) ng/ml Adenovirus (PCR) (NotDetected) B. pertussis DNA (PCR) (NotDetected) B.parapertussis DNA PCR (NotDetected) C. pneumoniae DNA (PCR) (NotDetected) Coronavirus OC43 (PCR) (NotDetected) Coronavirus HKU1 (PCR) (NotDetected) Coronavirus 229E (PCR) (NotDetected) Coronavirus NL63 (PCR) (NotDetected) Human Metapneumovir PCR (NotDetected) Influenza Type A (PCR) (NotDetected) Influenza Type B (PCR) (NotDetected) M. pneumoniae (PCR) (NotDetected) Parainfluenza 1 (PCR) (NotDetected) Parainfluenza 2 (PCR) (NotDetected) Parainfluenza 3 (PCR) (NotDetected) Parainfluenza 4 (PCR) (NotDetected) RSV (PCR) (NotDetected) Entero/Rhino (PCR) (NotDetected) 10/08/19 10/08/19 10/08/19 Range/Units 11:32 11:32 11:32 WBC (4.8-10.8) K/uL RBC (4.7-6.1) M/uL Hgb (14.0-18.0) g/dL Hct (42-52) % MCV (80-100) fL MCH (25-34) pg MCHC (32-36) g/dL RDW Std Deviation (36.4-46.3) fL RDW Coeff of María Elena (11.5-14.5) % Plt Count (130-400) K/uL MPV (7.4-10.4) fL Immature Gran % (Auto) % Neut % (Auto) % Lymph % (Auto) % [place] % (Auto) % Eos % (Auto) % Baso % (Auto) % Immature Gran # (Auto) (0.00-0.02) K/uL Neut # (Auto) (1.4-6.5) K/uL Lymph # (Auto) (1.2-3.4) K/uL [place] # (Auto) (0.11-0.59) K/uL Eos # (Auto) (0-0.5) K/uL Baso # (Auto) (0-0.2) K/uL PT (9.0-12.0) Seconds INR (0.9-1.1) APTT (21.0-31.0) Seconds PTT Ratio D-Dimer (0-500) ug/L FEU Sodium (136-145) mmol/L Potassium (3.5-5.1) mmol/L Chloride (98-107) mmol/L Carbon Dioxide (21-32) mmol/L Anion Gap (3-11) BUN (7-18) mg/dl Creatinine (0.6-1.4) mg/dl Est Cr Clr Drug Dosing ml/min Est GFR ( Amer) Est GFR (Non-Af Amer) BUN/Creatinine Ratio (10-20) Glucose (70-99) mg/dl Lactate (0.4-2.0) mmol/L Calcium (8.5-10.1) mg/dl Magnesium (1.8-2.4) mg/dl Total Bilirubin (0.2-1) mg/dl AST (15-37) U/L ALT (12-78) U/L Alkaline Phosphatase (45-117) U/L Troponin I (0-0.045) ng/ml Total Protein (6.4-8.2) gm/dl Albumin (3.4-5.0) gm/dl Globulin (2.5-4.0) gm/dl Albumin/Globulin Ratio (0.9-2) Procalcitonin (0-0.5) ng/ml Urine Color Yellow Urine Appearance Clear (Clear) Urine pH 5.0 (4.5-7.5) Ur Specific [place] 1.015 (1.000-1.030) Urine Protein 1+ H (Negative) Urine Glucose (UA) 2+ H (Negative) Urine Ketones Negative (Negative) Urine Blood 2+ H (Negative) Urine Nitrite Negative (Negative) Urine Bilirubin Negative (Negative) Urine Urobilinogen Negative (Negative) Ur Leukocyte Esterase Negative (Negative) Urine WBC (Auto) 1-5 (0-5) /hpf Urine RBC (Auto) 0-4 (0-4) /hpf U Hyaline Cast (Auto) 5-10 H (0-5) /lpf U Epithel Cells (Auto) 5-10 H (0-5) /lpf Urine Bacteria (Auto) Negative (Negative) Amorphous Sediment Present A (None Prsent) Urine Mucus Present A (None Prsent) Digoxin 0.6 L (0.8-2.0) ng/ml Adenovirus (PCR) Not Detected (NotDetected) B. pertussis DNA (PCR) Not Detected (NotDetected) B.parapertussis DNA PCR Not Detected (NotDetected) C. pneumoniae DNA (PCR) Not Detected (NotDetected) Coronavirus OC43 (PCR) Not Detected (NotDetected) Coronavirus HKU1 (PCR) Not Detected (NotDetected) Coronavirus 229E (PCR) Not Detected (NotDetected) Coronavirus NL63 (PCR) Not Detected (NotDetected) Human Metapneumovir PCR Not Detected (NotDetected) Influenza Type A (PCR) Not Detected (NotDetected) Influenza Type B (PCR) Not Detected (NotDetected) M. pneumoniae (PCR) Not Detected (NotDetected) Parainfluenza 1 (PCR) Not Detected (NotDetected) Parainfluenza 2 (PCR) Not Detected (NotDetected) Parainfluenza 3 (PCR) Not Detected (NotDetected) Parainfluenza 4 (PCR) Not Detected (NotDetected) RSV (PCR) Not Detected (NotDetected) Entero/Rhino (PCR) Not Detected (NotDetected) Administered Medications Levofloxacin/Dextrose (Levaquin/D5w) 750 mg in 150 mls @ 100 mls/hr IV Q24H YAA Stop: 10/22/19 11:14 Last Infusion: 10/08/19 13:10 Dose: 0 mls/hr Documented by: [id number] Admin: 10/08/19 11:38 Dose: 100 mls/hr Documented by: [id number] Discontinued Medications Acetaminophen (Tylenol) 650 mg PO NOW STA Stop: 10/08/19 12:40 Last Admin: 10/08/19 12:53 Dose: 650 mg Documented by: [id number] Aspirin (Aspirin) 324 mg PO NOW STA Stop: 10/08/19 12:13 Last Admin: 10/08/19 12:54 Dose: 324 mg Documented by: [id number] Azithromycin (Zithromax) 500 mg PO NOW ONE Stop: 10/08/19 12:58 Last Admin: 10/08/19 14:06 Dose: 500 mg Documented by: [id number] Sodium Chloride (Nss 1000ml) 1,000 mls @ 999 mls/hr IV .Q1H1M ONE Stop: 10/08/19 12:06 Last Infusion: 10/08/19 12:55 Dose: 0 mls/hr Documented by: [id number] Admin: 10/08/19 11:38 Dose: 999 mls/hr Documented by: [id number] Cefepime HCl 1,000 mg/ Syringe 11.3 mls @ 5.5 mls/min IV NOW STA; Protocol Stop: 10/08/19 12:37 Last Admin: 10/08/19 12:54 Dose: 5.5 mls/min Documented by: [id number] Potassium Chloride (Klor-Con M20) 40 meq PO NOW STA Stop: 10/08/19 12:36 Last Admin: 10/08/19 12:53 Dose: 40 meq Documented by: [id number] Discharge Plan Visit Data Chief Complaint: Shortness of Breath/Dyspnea ED Provider: Adonis Villanueva Discharge Problem: Sepsis, Pulmonary sarcoidosis, Hypoxia Discharge Instructions Interventions: ED Discharge Assessment Last Done: 10/08/19 13:39 Discharge Problem: Sepsis Qualifiers: Sepsis type: sepsis due to unspecified organism Sepsis acute organ dysfunction status: unspecified Qualified Code(s): A41.9 - Sepsis, unspecified organism
[2019-10-08] MEDS ORDERED: LEVOFLOXACIN/D5W 750 MG/150 ML BAG IV SCH (11:15)
[2019-10-08 11:44] LABS: Hematocrit (blood only) 44.6 % (42-52); Hemoglobin 14.9 g/dL (14.0-18.0); Mean Corpuscular Hemoglobin 30.7 pg (25-34); Mean Corpuscular Hgb Conc 33.4 g/dL (32-36); Mean Corpuscular Volume 91.8 fL (80-100); Mean Platelet Volume 8.9 fL (7.4-10.4); Platelet Count 231 K/uL (130-400); RDW Coefficient of Variation 16.4 % (11.5-14.5); RDW Standard Deviation 54.4 fL (36.4-46.3); Red Blood Count 4.86 M/uL (4.7-6.1); White Blood Count 10.12 K/uL (4.8-10.8)
[2019-10-08 12:01] LABS: BUN Creatinine Ratio 15.6 (10-20); Creatinine Clr Calc Pharmacy 74.6 ml/min; Est GFR (African American) 58.2; Est GFR (Non-African American) 50.2; Magnesium 1.9 mg/dl (1.8-2.4); Potassium 2.7 mmol/L (3.5-5.1)
[2019-10-08 12:03] LABS: INR 1.1 (0.9-1.1); Partial Thromboplastin Ratio 1.4; Partial Thromboplastin Time 38.7 Seconds (21.0-31.0); Prothrombin Time 11.7 Seconds (9.0-12.0)
--- NOTE | 2019-10-08 12:09 | XRay Report ---
XR chest 1V portable CLINICAL HISTORY: SEPSIS COMPARISON STUDY: 10/11/2016 FINDINGS: The heart is mildly enlarged. There are extensive bilateral interstitial pulmonary opacitie s. There are small bilateral pleural effusions. Underlying chronic lung disease is suspected.[ IMPRESSION: 1. Significant progression in the bilateral interstitial pulmonary opacities. Diagnostic consideratio ns include progressive interstitial lung disease, pulmonary edema superimposed on chronic interstitia l lung disease, or a bilateral interstitial infectious process superimposed on chronic lung disease. Clinical and radiographic follow-up is recommended ACT 112: Negative or not required by law. Electronically signed by: Josafat Desir M.D. 10/08/2019 12:08 PM
[2019-10-08 12:12] LABS: Albumin Globulin Ratio 0.6 (0.9-2); Bilirubin,Total 0.6 mg/dl (0.2-1); Globulin 4.7 gm/dl (2.5-4.0); Total Protein 7.7 gm/dl (6.4-8.2); Troponin I 1.34 ng/ml (0-0.045)
[2019-10-08] MEDS ORDERED: ASPIRIN CHEW 324 MG PO STA (12:12)
[2019-10-08 12:14] LABS: Basophils # (auto) 0.01 K/uL (0-0.2); Basophils % (auto) 0.1 %; Immature Granulocytes # (auto) 0.03 K/uL (0.00-0.02); Immature Granulocytes % (auto) 0.3 %; Lymphocytes # (auto) 0.49 K/uL (1.2-3.4); Lymphocytes % (auto) 4.8 %; Monocytes # (auto) 0.97 K/uL (0.11-0.59); Monocytes % (auto) 9.6 %; Neutrophils # (auto) 8.62 K/uL (1.4-6.5); Neutrophils % (auto) 85.2 %
[2019-10-08 12:14] LABS: Appearance Urine Clear (Clear); Bacteria Urine Automated Negative (Negative); Bilirubin Urine Negative (Negative); Blood Urine 2+ (Negative); Color Urine Yellow; Glucose Urine UA 2+ (Negative); Ketones Urine Negative (Negative); Leukocyte Esterase Urine Negative (Negative); Nitrite Urine Negative (Negative); Protein Urine 1+ (Negative); RBC Urine Automated 0-4 /hpf (0-4); Specific Gravity Urine 1.015 (1.000-1.030); Urobilinogen Urine Negative (Negative)
[2019-10-08 12:30] LABS: Amorphous Sediment Urine Present (None Prsent); Mucus Urine Present (None Prsent)
--- NOTE | 2019-10-08 12:34 | Electrocardiogram Report ---
Test Reason : Blood Pressure : / mmHG Vent. Rate : 110 BPM Atrial Rate : 110 BPM P-R Int : 134 ms QRS Dur : 104 ms QT Int : 348 ms P-R-T Axes : 055 126 047 degrees QTc Int : 470 ms Sinus tachycardia Right axis deviation Right ventricular hypertrophy Diffuse Nonspecific ST and T wave abnormality Abnormal ECG When compared with ECG of 11-OCT-2016 06:35, HR has increased by 25 bpm Otherwise no significant change Confirmed by Be Chaparro ([id number]) on 10/08/2019 12:34:37 PM Referred By: Confirmed By:Be Chaparro
[2019-10-08] MEDS ORDERED: CEFEPIME 1,000 MG in SYRINGE 0 ML IV STA (12:35)
[2019-10-08] MEDS ORDERED: POTASSIUM CHLORIDE 20 MEQ TABCR PO STA ×2 (12:35→19:55)
[2019-10-08] MEDS ORDERED: ACETAMINOPHEN 325 MG TAB PO STA (12:39)
[2019-10-08 12:41] LABS: Adenovirus PCR Not Detected (NotDetected); Coronavirus 229E PCR Not Detected (NotDetected); Coronavirus HKU1 PCR Not Detected (NotDetected); Coronavirus NL63 PCR Not Detected (NotDetected); Coronavirus OC43PCR Not Detected (NotDetected); Human Metapneumovirus PCR Not Detected (NotDetected); Influenza A PCR Not Detected (NotDetected); Influenza B PCR Not Detected (NotDetected); Parainfluenza Virus 1 PCR Not Detected (NotDetected); Parainfluenza Virus 2 PCR Not Detected (NotDetected); Parainfluenza Virus 3 PCR Not Detected (NotDetected); Parainfluenza Virus 4 PCR Not Detected (NotDetected); Rhinovirus/Enterovirus PCR Not Detected (NotDetected)
[2019-10-08 12:42] LABS: Bordetella parapertussis PCR Not Detected (NotDetected); Bordetella pertussis PCR Not Detected (NotDetected); Chlamydia pneumoniae PCR Not Detected (NotDetected); Mycoplasma pneumoniae PCR Not Detected (NotDetected); Respiratory Syncytial VirusPCR Not Detected (NotDetected)
--- NOTE | 2019-10-08 12:46 | Hospitalist Progress Note ---
Date of Service October 08, 2019 Subjective ATTENDING NOTE: 48 yo Male coming with fever /cough /SOB /hypoxia hx of sarcoidosis COVID 19 test ordered for [facility] /send out pt will be isolated on floor with airborne and droplet precaution till COVID -19 test result is back in next 2-3 days Heidi Thrasher MD Results & Data Results & Data ([facility] Vital Signs (Past 12 Hours) Vital Signs Temp Pulse Pulse Resp BP BP Pulse Ox 10/08/19 12:01 109 H 19 90 10/08/19 12:00 111 H 22 106/74 90 10/08/19 11:42 127 H 26 H 113/67 91 10/08/19 11:30 115 H 21 92 10/08/19 11:01 38.0 C H 111 H 20 108/65 90 10/08/19 11:00 113 H 24 113/67 90 10/08/19 10:57 110 H 25 H 91 10/08/19 10:53 111 H 24 108/65 92
--- NOTE | 2019-10-08 12:46 | History & Physical Report ---
Date of Service October 08, 2019 Assessment & Plan (1) Acute respiratory failure with hypoxemia: presented with acute on chronic hypoxemic respiratory failure possible community acquired pneumonia rule out COVID -[address] CHEST : 1. Stable emphysematous and chronic granulomatous change. 2. Superimposed diffuse bilateral parenchymal interstitial infiltrative change 3. Mildly progressive bilateral pleural effusions with mild to moderate bibasilar atelectatic/consolidative change. SARS-Cov-2 PCR ordered to [facility] /outside lab cont started airborne /droplet isolation precaution on IV rocephin/zitrhomax order for blood and sputum culture SEPSIS : Patient meets SIRS criteria with fever (38.0), tachycardia (127), tachypnea (26), with acute respiratory failure, possible pneumonia, and possible COVID -19 disease (2) CHF (congestive heart failure), NYHA class III: no evidence of vol overload home diuretics Torsemide on hold for dehydration , monitor for vol status (3) Pulmonary HTN: chronic on home 02 increased 02 demand noted due to acute respiratory illness ELEVATED TROPONIN : Type II OR due to demand ischemia Patient's initial troponin at 1.340 trending up to 1.400. Patient presented with hypoxia, tachycardia and tachypnea. EKG showed sinus tachycardia with ST and T wave abnormality. possible type 2 OR /Demand ischemia in setting of hypoxia , sepsis , respiratory failure serial cardiac markers to follow resting ECHO ordered - cont on Aspirin out pt meds no angina symptom monitor in tele /repeat EKG in Am ACUTE RENAL FAILURE ON CKD STAGE 3 : cr mildly elevated to 1.5 possible due to poor PO intake /dehydration in setting of acute illness hold diuretics gentle hydration follow PRP avoid NSAID's /Contrast studies (4) ANGELES (obstructive sleep apnea): (5) Pulmonary sarcoidosis: follow with pulmonology in [place] Mtx and PO prednisone kept on hold for acute illness will consult pulmonology if pt's respiratoty status does not improve with supportive care CODE STATUS : FULL CODE DVT PROPHYLAXIS : SUB Q Heparin DISPOSITION : expected to be discharged home when medically stable Pt's Primary care physician is Dr Andrzej Downing at [facility] History of Present Illness Chief Complaint: cough /fever Primary Care Provider: Andrzej Downing MD This is a 48 yo male with past medical hx of sarcoidosis of the lungs /chronic respiratory failure on 2 L 02 at home , chronic immunosuppresion on MTx and Chronic prednisone , CHF with diastolic heart failure /type 2 DM admitted with complain of fever , cough ,worsening of SOB started 4 days back pt reports he has been staying home for past several days due to COVID 19 viral stay at home orders/ had food delivered to him -and left outside his door denies of any sick contact , or contact with patient with COVID 19 positive or test result positive he started to experience chill and rigor on Tuesday morning , followed by generalized body ache , headache , symptoms continued to get worse in past 2 days , getting more short of breath with movement , in ER his temp was 38 /tachycardic HR 111 /tachypnic RR 26 , pt was hypoxic. 88 to 89% on his normal 2 L nasal cannula which is abnormal for him as he notes he is normally 94%. o2 increased to 4 L via nasal canula Allergies Allergy/AdvReac Type Severity Reaction Status Date / Time doxycycline Allergy Severe PEDRAZA Verified 10/10/16 18:29 Home Medications Home Medications Medication Instructions Recorded Confirmed Type aspirin [Claire Chewable Aspirin] 81 mg PO DAILY 10/08/19 10/08/19 History citalopram 20 mg PO DAILY 10/08/19 10/08/19 History digoxin [Digitek] 125 mcg PO DAILY 10/08/19 10/08/19 History empagliflozin [Jardiance] 25 mg PO DAILY 10/08/19 10/08/19 History ferrous sulfate 325 mg PO QAM 10/08/19 10/08/19 History fluticasone furoate-vilanterol 1 inh INHALATION DAILY 10/08/19 10/08/19 History [Breo Ellipta] folic acid 1 mg PO DAILY 10/08/19 10/08/19 History losartan 25 mg PO DAILY 10/08/19 10/08/19 History metformin 1,000 mg PO DAILY 10/08/19 10/08/19 History methotrexate sodium 2.5 mg PO DIRECTED 10/08/19 10/08/19 History omeprazole 20 mg PO QAM 10/08/19 10/08/19 History potassium chloride 20 meq PO BID 10/08/19 10/08/19 History prednisone 5 mg PO DAILY 10/08/19 10/08/19 History semaglutide [Ozempic] 1 mg SUBCUT WK 10/08/19 10/08/19 History spironolactone 25 mg PO BID 10/08/19 10/08/19 History tamsulosin 0.4 mg PO DAILY 10/08/19 10/08/19 History torsemide 80 mg PO BID 10/08/19 10/08/19 History Past Med/Surg History Social History Preferred Language: Mongolian Communication Ability: Effective 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: No Beliefs That Will Affect Care: None Current Living Situation: Alone Other Information That Helps Us Care for You: No Feels Safe at Home: Yes Smoking Status: Never smoker Tobacco Type: smokeless tobacco ; Do You Dip or Chew Tobacco: Yes ; Hx Alcohol Use: No (rare) Hx Substance Use: No Review of Systems Review of Systems: All systems reviewed & are unremarkable except as noted in HPI & below Constitutional: + fever, + chills, + sweats, + body aches, + fatigue, + malaise and + weakness Respiratory: + cough, + change in sputum, + dyspnea, + dyspnea on exertion, + pain on inspiration, + pain with cough, + sputum production and + wheezing Cardiovascular: + chest pain, + dyspnea, + dyspnea at rest, + dyspnea on exertion, + palpitations and + lightheadedness; no syncope Gastrointestinal: no abdominal pain, no nausea, no vomiting and no diarrhea/loose stools Musculoskeletal: + myalgia Neurologic: + generalized weakness and + headache(s) Physical Exam Constitutional: WD/WN, vitals as above + acute distress (in mild respiratory distress ) Eyes: PERRL, conjunctivae normal, anicteric sclerae ENMT: external ear and nose normal, oropharynx normal Neck: trachea midline, no thyromegaly Respiratory: normal respiratory effort and + cough Auscultation: + meter/relay craftsman ckles, + rales, + rhonchi and + wheezes Cardiovascular: Rate/Rhythm: + tachycardic Extremities: no edema Gastrointestinal (Abdomen): Percussion/Palpation: abdomen soft; abdomen nontender Musculoskeletal: Head/Neck/Chest: normocephalic and head atraumatic Extremities: + abnormal strength (generalized weakness ); + abnormal strength generalized weakness Skin: no rashes, warm and dry Neurologic: PERRL, EOMI, accommodation nl, no face palsy, no dysarthria Psychiatric: A+Ox3, euthymic affect Results & Data Results & Data ([facility]) Vital Signs (Past 12 Hours) Vital Signs Temp Pulse Pulse Resp BP BP Pulse Ox 10/08/19 12:01 109 H 19 90 10/08/19 12:00 111 H 22 106/74 90 10/08/19 11:42 127 H 26 H 113/67 91 10/08/19 11:30 115 H 21 92 10/08/19 11:01 38.0 C H 111 H 20 108/65 90 10/08/19 11:00 113 H 24 113/67 90 10/08/19 10:57 110 H 25 H 91 10/08/19 10:53 111 H 24 108/[address] CHEST : 1. Stable emphysematous and chronic granulomatous change. 2. Superimposed diffuse bilateral parenchymal interstitial infiltrative change 3. Mildly progressive bilateral pleural effusions with mild to moderate bibasilar atelectatic/consolidative change. 4. Stable hepatic hemangioma and diffuse fatty infiltration of the liver.
[2019-10-08] MEDS ORDERED: AZITHROMYCIN 250 MG TAB PO ONE (12:57)
[2019-10-08 13:23] LABS: D Dimer 3930 ug/L FEU (0-500)
[2019-10-08] MEDS ORDERED: NITROGLYCERIN SL 0.4 MG/TAB TAB SL PRN (16:28)
[2019-10-08] MEDS ORDERED: ALUMINUM/MAGNESIUM SUSP 30 ML UDC PO PRN (16:28)
[2019-10-08] MEDS ORDERED: ONDANSETRON INJ 2 MG/ML 2 ML VIAL IV PRN (16:28)
[2019-10-08] MEDS ORDERED: POLYETHYLENE (MIRALAX) 17 GM PACK PO PRN (16:28)
[2019-10-08] MEDS ORDERED: MAGNESIUM HYDROXIDE SUSP 30 ML UDC PO PRN (16:28)
--- NOTE | 2019-10-08 17:47 | CT Scan Report ---
CT chest wo con CT DOSE: 818.30 mGycm HISTORY: Dyspnea cough /sob /fever TECHNIQUE: Multiaxial CT images of the chest were performed without contrast. A dose lowering techni que was utilized adhering to the principles of ALARA. COMPARISON: 10/10/2016 FINDINGS: Progressive bilateral pleural effusions. Pre-existing chronic interstitial change is now a component of superimposed rather diffuse inflammatory interstitial changes throughout both hemithorac es. Baseline emphysematous changes similar. Calcified hilar or mediastinal nodes are stable. Mild cardiomegaly. Fatty infiltration of liver. Hemangioma superior right hepatic lobe considered unc hanged. Gallstone is again noted in the region of the gallbladder neck. IMPRESSION: 1. Stable emphysematous and chronic granulomatous change. 2. Superimposed diffuse bilateral parenchymal interstitial infiltrative change 3. Mildly progressive bilateral pleural effusions with mild to moderate bibasilar atelectatic/consoli dative change. 4. Stable hepatic hemangioma and diffuse fatty infiltration of the liver. ACT 112: Negative or not required by law. The above report was generated using voice recognition software. It may contain grammatical, syntax or spelling errors. Electronically signed by: Shabbir Walters M.D. 10/08/2019 5:46 PM
[2019-10-08 18:34] LABS: BUN Creatinine Ratio 18.3 (10-20); C Reactive Protein 13.7 mg/dl (0-0.29); Calcium 8.2 mg/dl (8.5-10.1); Creatinine Clr Calc Pharmacy 89.2 ml/min; Est GFR (African American) 72.2; Est GFR (Non-African American) 62.3; Magnesium 2.1 mg/dl (1.8-2.4)
[2019-10-08 18:46] LABS: Troponin I 1.47 ng/ml (0-0.045)
[2019-10-08] MEDS: POTASSIUM CHLORIDE 20 MEQ TABCR PO SCH (19:51)
[2019-10-08] MEDS: cefTRIAXone SODIUM 2,000 MG in DEXTROSE 5% 50 ML IV SCH (19:53)
[2019-10-08] MEDS: LOSARTAN POTASSIUM 25 MG TAB PO SCH (20:13)
[2019-10-08] MEDS: CITALOPRAM 20 MG TAB PO SCH (20:13)
[2019-10-08] MEDS: PANTOprazole 40 MG TAB PO SCH (20:14)
[2019-10-08] MEDS: TAMSULOSIN HCL 0.4 MG CAP PO SCH (20:14)
[2019-10-08] MEDS: DIGOXIN 0.125 MG TAB PO SCH (20:14)
[2019-10-08] MEDS: FOLIC ACID 1 MG TAB PO SCH (20:15)
[2019-10-08] MEDS: HEPARIN SOD 5,000 UNIT/0.5 ML VIAL SQ SCH (20:27)
[2019-10-08] MEDS ORDERED: HEPARIN SOD 5,000 UNIT/0.5 ML VIAL SQ SCH (22:00)
[2019-10-09] MEDS: HEPARIN SOD 5,000 UNIT/0.5 ML VIAL SQ SCH ×2 (04:57→11:35)
[2019-10-09 07:12] LABS: Eosinophils # (auto) 0.02 K/uL (0-0.5); Eosinophils % (auto) 0.3 %; Hematocrit (blood only) 40.6 % (42-52); Hemoglobin 13.4 g/dL (14.0-18.0); Immature Granulocytes # (auto) 0.03 K/uL (0.00-0.02); Immature Granulocytes % (auto) 0.5 %; Lymphocytes # (auto) 0.53 K/uL (1.2-3.4); Lymphocytes % (auto) 8.7 %; Mean Corpuscular Hemoglobin 30.6 pg (25-34); Mean Corpuscular Volume 92.7 fL (80-100); Mean Platelet Volume 8.9 fL (7.4-10.4); Monocytes # (auto) 0.22 K/uL (0.11-0.59); Monocytes % (auto) 3.6 %; Neutrophils # (auto) 5.26 K/uL (1.4-6.5); Neutrophils % (auto) 86.9 %; Platelet Count 203 K/uL (130-400); RDW Coefficient of Variation 16.6 % (11.5-14.5); RDW Standard Deviation 55.8 fL (36.4-46.3); Red Blood Count 4.38 M/uL (4.7-6.1); White Blood Count 6.06 K/uL (4.8-10.8)
[2019-10-09 07:30] LABS: BUN Creatinine Ratio 20.2 (10-20); Calcium 8.6 mg/dl (8.5-10.1); Creatinine Clr Calc Pharmacy 112.8 ml/min; Est GFR (African American) 96.1; Magnesium 2.3 mg/dl (1.8-2.4); Potassium 3.2 mmol/L (3.5-5.1)
[2019-10-09 07:38] LABS: Troponin I 0.463 ng/ml (0-0.045)
[2019-10-09 07:49] LABS: SARS CoV2 RNA (COVID-19) DETECTED (NOT DETECTED)
[2019-10-09] MEDS ORDERED: ASPIRIN 81 MG ECTAB PO SCH ×2 (08:00→09:00)
[2019-10-09] MEDS ORDERED: AZITHROMYCIN 250 MG TAB PO SCH ×2 (08:00→09:00)
[2019-10-09] MEDS: FOLIC ACID 1 MG TAB PO SCH (08:54)
[2019-10-09] MEDS: DIGOXIN 0.125 MG TAB PO SCH (08:54)
[2019-10-09] MEDS: TAMSULOSIN HCL 0.4 MG CAP PO SCH (08:54)
[2019-10-09] MEDS: LOSARTAN POTASSIUM 25 MG TAB PO SCH (08:55)
[2019-10-09] MEDS: PANTOprazole 40 MG TAB PO SCH (08:55)
[2019-10-09] MEDS: CITALOPRAM 20 MG TAB PO SCH (08:55)
[2019-10-09] MEDS: POTASSIUM CHLORIDE 20 MEQ TABCR PO SCH ×2 (08:56→19:57)
[2019-10-09] MEDS ORDERED: PANTOprazole 40 MG TAB PO SCH (09:00)
[2019-10-09] MEDS ORDERED: FOLIC ACID 1 MG TAB PO SCH (09:00)
[2019-10-09] MEDS ORDERED: DIGOXIN 0.125 MG TAB PO SCH (09:00)
[2019-10-09] MEDS ORDERED: LOSARTAN POTASSIUM 25 MG TAB PO SCH (09:00)
[2019-10-09] MEDS ORDERED: CITALOPRAM 20 MG TAB PO SCH (09:00)
[2019-10-09] MEDS ORDERED: TAMSULOSIN HCL 0.4 MG CAP PO SCH (09:00)
[2019-10-09] MEDS ORDERED: POTASSIUM CHLORIDE 20 MEQ TABCR PO STA (10:23)
[2019-10-09] MEDS ORDERED: LEVALBUTEROL 1.25MG/0.5ML NEB INH SCH (11:30)
[2019-10-09] MEDS ORDERED: DEXTROSE 50% 50 ML SYRINGE IV PRN (11:30)
[2019-10-09] MEDS ORDERED: GLUCAGON FOR INJ 1 MG VIAL SQ PRN (11:30)
[2019-10-09] MEDS ORDERED: IPRATROPIUM BROMIDE NEB SOLN 0.02% 2.5 ML VIAL INH SCH (11:30)
[2019-10-09] MEDS ORDERED: GLUCOSE 40% GEL 15 GM TUBE PO PRN (11:30)
[2019-10-09] MEDS ORDERED: GLUCOSE 10 TABS/TUBE PO PRN (11:30)
[2019-10-09] MEDS ORDERED: CARBOHYDRATES FOR HYPOGLYCEMIA PO PRN (11:30)
[2019-10-09] MEDS ORDERED: PROMETHAZINE HCL 12.5 MG in SODIUM CHLORIDE 0.9% 50 ML IV PRN (11:51)
--- NOTE | 2019-10-09 11:55 | Hospitalist Progress Note ---
Date of Service October 09, 2019 Assessment & Plan Admission and Anticipated Discharge Date Admission Date: October 08, 2019 Subjective ATTENDING NOTE : SARS-CoV 19 PCR positive from [facility] Bio fire negative pt is transferred to COVID Unit AM EKG shows Qtc 498 PO Zithromax D/libby pt was given IV levaquin in AM daily EKG to assess Qtc / serial troponin level platued , no angina symptoms ECHO no wall motion abnormality evidence of pulm HTN , which could be chronic Pulmonology eval requested DVT prophylaxis changed to SC Lovenox -as per recent guideline more effective to prevent thromboembolic events in COVID -19 cases Results & Data Results & Data ([facility]) Vital Signs (Past 12 Hours) Vital Signs Temp Pulse Pulse Resp BP BP Pulse Ox 10/09/19 11:33 37 C 92 H 20 127/69 93 10/09/19 10:05 104 H 10/09/19 10:00 37.0 C 101 H 22 91/60 L 92 10/09/19 08:54 102 H 10/09/19 08:00 36.5 C 102 H 18 102/56 L 93 10/09/19 05:00 36.9 C 85 20 132/86 98 10/09/19 02:53 85 21 99 10/09/19 00:00 37 C 99 H 22 122/78 99
[2019-10-09] MEDS ORDERED: POTASSIUM CHLORIDE 20 MEQ in SODIUM CHLORIDE 0.9% 1000ML 1,000 ML IV SCH (12:00)
[2019-10-09 12:07] LABS: HCO3 ABG 29 mmol/L (19-24); PCO2 ABG 47 mmHg (35-46); PO2 ABG 81 mmHg (80-95); pH ABG 7.42 (7.35-7.45)
[2019-10-09 12:08] LABS: Allen Test Pos (Pos)
[2019-10-09 12:15] LABS: D Dimer 3080 ug/L FEU (0-500)
[2019-10-09] MEDS ORDERED: LEVALBUTEROL TARTRATE 15 GM HFA.AER.AD INH PRN (12:15)
[2019-10-09] MEDS ORDERED: NSS + 20MEQ KCL 20 MEQ/1,000 ML BAG IV SCH (12:15)
[2019-10-09] MEDS: INSULIN ASPART 100 UNITS/ML 3 ML PEN SC SCH ×3 (12:25→20:07)
--- NOTE | 2019-10-09 12:26 | Electrocardiogram Report ---
Test Reason : Blood Pressure : / mmHG Vent. Rate : 089 BPM Atrial Rate : 089 BPM P-R Int : 150 ms QRS Dur : 102 ms QT Int : 410 ms P-R-T Axes : 048 122 075 degrees QTc Int : 498 ms Normal sinus rhythm Right axis deviation Prolonged QT Abnormal ECG When compared with ECG of 08-OCT-2019 10:57, T wave inversion now evident in Anterior leads Confirmed by Be Chaparro ([id number]) on 10/09/2019 12:25:38 PM Referred By: REFERRED SELF Confirmed By:Be Chaparro
[2019-10-09 12:28] LABS: Estimated Average Glucose 134 mg/dl; Hemoglobin A1C 6.3 % (4.5-5.6)
[2019-10-09] MEDS ORDERED: XOPENEX/ATROVENT 1.25mg/0.5MG NEB COMBO NEB SCH (13:00)
--- NOTE | 2019-10-09 13:02 | Pulmonary Consultation ---
Date of Consultation October 09, 2019 Assessment & Plan (1) Acute respiratory failure with hypoxemia: Impression: 48-year-old male with significant pulmonary history including parenchymal lung disease due to sarcoidosis with calcified mediastinal and hilar lymph nodes, secondary pulmonary hypertension with associated right-sided heart failure, and chronic hypoxemic respiratory failure admitted with novel coronavirus infection. His oxygen requirement is at baseline and clinically he appears symptomatically improved with supportive care. Recommendations: 1. Coronavirus pneumonia: Would continue supportive care at this point time. Can continue with inhaled corticosteroids. Inhalers will be adjusted. Avoid nebulizers. Would not use high-dose systemic steroids at this point time unless the patient becomes overtly bronchospastic. I do not think the recent studies would suggest that Plaquenil would be effective for this patient. In addition he already has a borderline prolonged QT. He is not sick enough to justify consideration for convalescent plasma and novel antiviral agents including remdesivir are not available at our institution. Given his elevated pro calcitonin level and CT findings I would favor completing a course of antimicrobials. Agree with Rocephin. Azithromycin was discontinued due to QT prolongation. Would add doxycycline for atypical coverage. Anticipate 7 days of antimicrobial therapy 2. Hypoxemic respiratory failure: Continue supplemental oxygen titrated to keep saturations at or above 90%. Could transition to high flow if needed. No indication for noninvasive positive pressure ventilation 3. Secondary pulmonary hypertension: Patient likely has pulmonary hypertension related to underlying sarcoid. No comment on diastolic filling parameters or EDP. Pulmonary venoocclusive disease is possible given the compression of the calcified lymph nodes, the pulmonary veins are quite prominent on his CT scan. Would favor diuretics at this point in time. Close attention to serum creatinine given his underlying kidney disease is recommended. 4. Advanced pulmonary sarcoid: The patient has evidence of mediastinal and hilar calcified lymph nodes as well as parenchymal lung disease. Would hold his methotrexate for now. He is been chronically on prednisone and is at risk for relative adrenal suppression. If the patient develops hemodynamic instability would have a low threshold for restarting stress dose of prednisone however he appears to be doing quite well currently. Continue his Breo. As needed albuterol also reasonable. (2) Hypoxia: (3) Pulmonary HTN: History of Present Illness Attending Physician: Heidi Thrasher MD History of Present Illness Asked by hospitalist to assist in management of this patient admitted with respiratory insufficiency and COVID-19 infection. History is obtained from discussion with the attending physician as well as review the electronic medical record. Due to COVID restrictions, the patient was not directly interviewed. Patient is a 48-year-old male who is followed at [facility] for sarcoid and is maintained on methotrexate and prednisone. I do not have records from his pulmonary evaluation previously to include PFTs. He does have a history of pulmonary hypertension and is chronically on oxygen. His oxygen requirement is about 4 L a day. He is on prednisone 5 mg daily as well as methotrexate and Breo. The patient presented to the emergency room yesterday with 4 days of cough and shortness of breath as well as myalgias and headache. He did not have any known exposures however novel coronavirus testing was conducted and is positive. The patient was placed in isolation. According to the hospitalist he feels better today. His oxygen requirement is at baseline at 4 L. He continues to experience some wheezing. His fever curve has improved. Allergies Allergy/AdvReac Type Severity Reaction Status Date / Time doxycycline Allergy Severe PEDRAZA Verified 10/10/16 18:29 Home Medications Home Medications Medication Instructions Recorded Confirmed Type aspirin [Claire Chewable Aspirin] 81 mg PO DAILY 10/08/19 10/08/19 History citalopram 20 mg PO DAILY 10/08/19 10/08/19 History digoxin [Digitek] 125 mcg PO DAILY 10/08/19 10/08/19 History empagliflozin [Jardiance] 25 mg PO DAILY 10/08/19 10/08/19 History ferrous sulfate 325 mg PO QAM 10/08/19 10/08/19 History fluticasone furoate-vilanterol 1 inh INHALATION DAILY 10/08/19 10/08/19 History [Breo Ellipta] folic acid 1 mg PO DAILY 10/08/19 10/08/19 History losartan 25 mg PO DAILY 10/08/19 10/08/19 History metformin 1,000 mg PO DAILY 10/08/19 10/08/19 History methotrexate sodium 2.5 mg PO DIRECTED 10/08/19 10/08/19 History omeprazole 20 mg PO QAM 10/08/19 10/08/19 History potassium chloride 20 meq PO BID 10/08/19 10/08/19 History prednisone 5 mg PO DAILY 10/08/19 10/08/19 History semaglutide [Ozempic] 1 mg SUBCUT WK 10/08/19 10/08/19 History spironolactone 25 mg PO BID 10/08/19 10/08/19 History tamsulosin 0.4 mg PO DAILY 10/08/19 10/08/19 History torsemide 80 mg PO BID 10/08/19 10/08/19 History Patient History Social History Preferred Language: Cook Islander Communication Ability: Effective Global Chief Creative Officer Required: No Beliefs That Will Affect Care: None Current Living Situation: Alone Other Information That Helps Us Care for You: No Feels Safe at Home: Yes Smoking Status: Never smoker Tobacco Type: smokeless tobacco ; Do You Dip or Chew Tobacco: Yes ; Hx Alcohol Use: No (rare) Hx Substance Use: No Review of Systems Review of Systems: Is refer the hospitalist notes. I have no additions or deletions Physical Exam Physical Exam: Physical exam is deferred due to novel coronavirus restrictions and efforts to preserve PPE. Please refer to the hospitalist exam from today Results & Data Results & Data ([facility]) Vital Signs (Past 12 Hours) Vital Signs Temp Pulse Pulse Resp BP BP Pulse Ox 10/09/19 11:55 96 H 22 97 10/09/19 11:33 37 C 92 H 20 127/69 93 10/09/19 10:05 104 H 10/09/19 10:00 37.0 C 101 H 22 91/60 L 92 10/09/19 08:54 102 H 10/09/19 08:00 36.5 C 102 H 18 102/56 L 93 10/09/19 05:00 36.9 C 85 20 132/86 98 10/09/19 02:53 85 21 99 Laboratory Results 10/09/19 06:46 10/09/19 06:46 COVID-19 PCR positive Initial d-dimer 3930 decreasing down to 3080 today we will Initial LDH 283 now normal at 235 CRP 16.60 which is elevated Procalcitonin 0.66 which is increased Diagnostic Findings CT of the chest was independently reviewed. Echocardiogram from 10/08/2019 showed normal left ventricle with flattening of the septum consistent with RV pressure volume overload. EF of 55-60 with dilatation of the right ventricle and elevated right ventricular systolic pressure estimated at 50-60. No significant valvular abnormalities identified. No comment on diastolic dysfunction. PG Care Time/CCT Total # of Minutes Spent Total Time Spent with Patient: Total time spent is greater than 50% in coordination of care (as documented) at patient's floor/unit and/or counseling patient: Coding Level of Care Code 15661 Inpt Consult Level 4 Diagnoses Acute respiratory failure with hypoxemia J96.01 Hypoxia R09.02 Pulmonary HTN I27.20
[2019-10-09] MEDS: ACETAMINOPHEN 325 MG TAB PO PRN ×2 (13:18→20:09)
[2019-10-09] MEDS: ZINC SULFATE 220 MG CAPSULE PO SCH ×2 (13:20→20:01)
[2019-10-09] MEDS: DOXYCYCLINE HYCLATE 100 MG CAP PO SCH ×2 (14:02→20:00)
[2019-10-09 14:44] LABS: BUN Creatinine Ratio 17.9 (10-20); Calcium 8.6 mg/dl (8.5-10.1); Creatinine Clr Calc Pharmacy 109.7 ml/min; Est GFR (African American) 92.9; Est GFR (Non-African American) 80.2; Magnesium 2.4 mg/dl (1.8-2.4); Potassium 3.6 mmol/L (3.5-5.1)
[2019-10-09] MEDS: FUROSEMIDE 20 MG TAB PO SCH (15:20)
--- NOTE | 2019-10-09 18:21 | Hospitalist Progress Note ---
Date of Service October 09, 2019 Assessment & Plan (1) Acute respiratory failure with hypoxemia: due to COVID 19 disease , underlying advanced pulm disease , chronic respiratory failure on 4 L 02 chronically on Methotrexate and chronic prednisone therapy pt remains high risk for severe pulmonary complication form COVID -19 disease COVID 19 DISEASE: SARS-CoV 19 PCR positive from [facility] Bio fire negative pt is transferred to COVID Unit AM EKG shows Qtc 498 PO Zithromax D/libby pt was given IV levaquin in ER D/W pulmonology : pt can be started on PO Doxycycline pt had prior side effect of doxycycline -Nausea /vomiting , refused to take the antibiotic Pulm aware daily EKG ordered to assess Qtc /keep K <4 , Mg > 2 to prevent cardiac arrythmia avoid zofran and other qtc prolonging drugs Pulmonology eval requested DVT prophylaxis changed to SC Lovenox -as per recent guideline more effective to prevent thromboembolic events in COVID -19 cases presented with acute on chronic hypoxemic respiratory failure CT CHEST : 1. Stable emphysematous and chronic granulomatous change. 2. Superimposed diffuse bilateral parenchymal interstitial infiltrative change 3. Mildly progressive bilateral pleural effusions with mild to moderate bibasilar atelectatic/consolidative change. SEPSIS : Patient meets SIRS criteria with fever (38.0), tachycardia (127), tachypnea (26), with acute respiratory failure, due to COVID -19 disease (2) Pulmonary sarcoidosis: follows with pulmonology in [place] Mtx and PO prednisone kept on hold for acute illness given pt's already underlying advanced respiratory disease an immunocompromised status high risk for pulmonary complication due to COVID 19 /increased risk for progressive resp failure /mechanical ventilation reached out to pt's [facility] Fall[facility] in [place] Louise DECKER via [employer] text update given at present pt is at stable respiratory status ABG this morning shows , adequate oxygenation recommends to continue supportive care if pt's status declines due to COVID-19 related complications pt can be transferred to [place] ICU for further care -given complexity of pt's underlying disease condition [facility] radiology dept contacted : images of CT chest and Chest xray transmitted to [facility] in [place] . (3) CHF (congestive heart failure), NYHA class III: chronic rt heart failure /cor pulmonale due to Pulm HTN /pulmonary sarcoidosis no evidence of vol overload home diuretics Torsemide on hold for dehydration , monitor for vol status (4) Pulmonary HTN: chronic on home 02 increased 02 demand noted due to acute respiratory illness ELEVATED TROPONIN : Type II MD due to demand ischemia Patient's initial troponin at 1.340 trending up to 1.400. Patient presented with hypoxia, tachycardia and tachypnea. EKG showed sinus tachycardia with ST and T wave abnormality. possible type 2 MD /Demand ischemia in setting of hypoxia , sepsis , respiratory failure serial troponin level platued , no angina symptoms ECHO no wall motion abnormality evidence of pulm HTN , which appears to be chronic on aspirin cont respiratory support with supplemental 02 ACUTE RENAL FAILURE ON CKD STAGE 3 : resolved with IV hydration , cr improved to baseline cr mildly elevated to 1.5 possible due to poor PO intake /dehydration in setting of acute illness hold diuretics gentle hydration follow PRP avoid NSAID's /Contrast studies CODE STATUS : FULL CODE DVT PROPHYLAXIS :sub q Lovenox DISPOSITION : pt remains in COVID 19 isolation unit update given to Pt's Aunt Shi # [phone] over phone (5) ANGELES (obstructive sleep apnea): Admission and Anticipated Discharge Date Admission Date: October 08, 2019 Subjective pt reports of feeling better has been afebrile for past 24 hrs on 4 L 02 -at baseline SOB has improved continues to have cough Review of Systems Constitutional: + fatigue, + malaise and + weakness Respiratory: + cough and + wheezing Musculoskeletal: + myalgia Neurologic: + generalized weakness Physical Exam Constitutional: WD/WN, vitals as above + ill appearing; no acute distress Eyes: PERRL, conjunctivae normal, anicteric sclerae ENMT: external ear and nose normal, oropharynx normal Neck: trachea midline, no thyromegaly Respiratory: normal respiratory effort and + cough Auscultation: + crackles, + rales and + wheezes Cardiovascular: Extremities: no edema Gastrointestinal (Abdomen): Percussion/Palpation: abdomen soft; abdomen nontender Musculoskeletal: Head/Neck/Chest: normocephalic and head atraumatic Extremities: + abnormal strength (generalized weakness ); + abnormal strength Skin: no rashes, warm and dry Neurologic: PERRL, EOMI, accommodation nl, no face palsy, no dysarthria Psychiatric: A+Ox3, euthymic affect Results & Data Results & Data ([facility]) Vital Signs (Past 12 Hours) Vital Signs Temp Pulse Pulse Resp BP BP Pulse Ox 10/09/19 17:00 92/67 L 10/09/19 15:42 91 H 10/09/19 15:31 36.9 C 105 H 20 91/53 L 93 10/09/19 11:55 96 H 22 97 10/09/19 11:33 37 C 92 H 20 127/69 93 10/09/19 10:05 104 H 10/09/19 10:00 37.0 C 101 H 22 91/60 L 92 10/09/19 08:54 102 H 10/09/19 08:00 36.5 C 102 H 18 102/56 L 93
[2019-10-09] MEDS: ENOXAPARIN INJ 40 MG/0.4 ML SYR SQ SCH (19:57)
[2019-10-09] MEDS: cefTRIAXone SODIUM 2,000 MG in DEXTROSE 5% 50 ML IV SCH (20:07)
[2019-10-10] MEDS: ACETAMINOPHEN 325 MG TAB PO PRN ×3 (03:45→15:25)
[2019-10-10 06:34] LABS: Eosinophils # (auto) 0.02 K/uL (0-0.5); Eosinophils % (auto) 0.4 %; Hematocrit (blood only) 37.5 % (42-52); Hemoglobin 12.2 g/dL (14.0-18.0); Immature Granulocytes # (auto) 0.02 K/uL (0.00-0.02); Immature Granulocytes % (auto) 0.4 %; Lymphocytes # (auto) 0.19 K/uL (1.2-3.4); Lymphocytes % (auto) 3.4 %; Mean Corpuscular Hemoglobin 30.2 pg (25-34); Mean Corpuscular Hgb Conc 32.5 g/dL (32-36); Mean Corpuscular Volume 92.8 fL (80-100); Mean Platelet Volume 9.5 fL (7.4-10.4); Monocytes # (auto) 0.27 K/uL (0.11-0.59); Monocytes % (auto) 4.9 %; Neutrophils # (auto) 5.06 K/uL (1.4-6.5); Neutrophils % (auto) 90.9 %; Platelet Count 219 K/uL (130-400); RDW Coefficient of Variation 16.5 % (11.5-14.5); RDW Standard Deviation 56.5 fL (36.4-46.3); Red Blood Count 4.04 M/uL (4.7-6.1); White Blood Count 5.56 K/uL (4.8-10.8)
[2019-10-10 06:47] LABS: D Dimer 3450 ug/L FEU (0-500)
[2019-10-10 07:05] LABS: Albumin Level 2.4 gm/dl (3.4-5.0); BUN Creatinine Ratio 16.3 (10-20); C Reactive Protein 15.1 mg/dl (0-0.29); Calcium 8.2 mg/dl (8.5-10.1); Creatinine Clr Calc Pharmacy 119.6 ml/min; Est GFR (African American) 103.2; Est GFR (Non-African American) 89.1; Magnesium 2.2 mg/dl (1.8-2.4); Potassium 3.4 mmol/L (3.5-5.1)
[2019-10-10 07:08] LABS: Albumin Globulin Ratio 0.6 (0.9-2); Bilirubin,Total 0.5 mg/dl (0.2-1); Globulin 4.1 gm/dl (2.5-4.0); Total Protein 6.5 gm/dl (6.4-8.2)
[2019-10-10] MEDS: POTASSIUM CHLORIDE 20 MEQ TABCR PO SCH ×2 (08:16→19:39)
[2019-10-10] MEDS: ZINC SULFATE 220 MG CAPSULE PO SCH ×2 (08:16→19:39)
[2019-10-10] MEDS: FERROUS SULFATE 325 MG TAB PO SCH (08:16)
[2019-10-10] MEDS: FUROSEMIDE 20 MG TAB PO SCH (08:16)
[2019-10-10] MEDS: PANTOprazole 40 MG TAB PO SCH (08:16)
[2019-10-10] MEDS: ASPIRIN 81 MG CHEW PO SCH (08:16)
[2019-10-10] MEDS: FOLIC ACID 1 MG TAB PO SCH (08:17)
[2019-10-10] MEDS: FLUTICASONE/VILANTEROL 100/25MCG 14 PUFFS/INHALER INH SCH (08:17)
[2019-10-10] MEDS: TAMSULOSIN HCL 0.4 MG CAP PO SCH (08:17)
[2019-10-10] MEDS: DIGOXIN 0.125 MG TAB PO SCH (08:18)
[2019-10-10] MEDS: INSULIN ASPART 100 UNITS/ML 3 ML PEN SC SCH ×4 (08:19→21:29)
--- NOTE | 2019-10-10 08:21 | Pulmonology Progress Note ---
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 Recommendations: 1. Coronavirus pneumonia: Would continue supportive care at this point time. Can continue with inhaled corticosteroids. He does not appear overtly bronchospastic currently avoid nebulizers. Would not use high-dose systemic steroids at this point time unless the patient becomes overtly bronchospastic. I do not think the recent studies would suggest that Plaquenil would be effective for this patient. In addition he already has a borderline prolonged QT. He is not sick enough to justify consideration for convalescent plasma and novel antiviral agents including remdesivir are not available at our institution. Given his elevated pro calcitonin level and CT findings I would favor completing a course of antimicrobials. Agree with Rocephin. Azithromycin was discontinued due to QT prolongation. Patient has declined doxycycline due to previous adverse reaction. Azithromycin not recommended given his QT prolongation. Anticipate 7 days of antimicrobial therapy. 2. Hypoxemic/hypercarbic respiratory failure: Continue supplemental oxygen titrated to keep saturations at or above 90%. Could transition to high flow if needed. Continue nocturnal positive airway pressure at home settings and as needed during the day. 3. Secondary pulmonary hypertension: Patient likely has pulmonary hypertension related to underlying sarcoid. No comment on diastolic filling parameters or EDP. Pulmonary venoocclusive disease is possible given the compression of the calcified lymph nodes, the pulmonary veins are quite prominent on his CT scan. Would continue diuretics at this point in time. Close attention to serum creatinine given his underlying kidney disease is recommended. If the patient were to progress to needing mechanical ventilation, his underlying pulmonary vascular disease would make him at high risk. 4. Advanced pulmonary sarcoid: The patient has evidence of mediastinal and hilar calcified lymph nodes as well as parenchymal lung disease. Would hold his methotrexate for now. He is been chronically on prednisone and is at risk for relative adrenal suppression. If the patient develops hemodynamic instability would have a low threshold for restarting stress dose of prednisone however he appears to be doing reasonably well currently. Continue his Breo. As needed albuterol also reasonable. 5. Disposition: Patient's team is primarily located at [facility]. Given the complexity of his underlying pulmonary issues, would not be unreasonable to consider transferring the patient to [facility]. Discussed briefly with the patient. He would obviously like to remain here as long as possible but unde rstands that if this is in his best interest he would be agreeable to transfer. It seems feasable to continue to watch him here, however if he should clinically deteriorate, would have a low threshold for transfer. Could make a case for transferring the patient prior to clinical deterioration as well as [facility] may have access to [facility]. (2) Hypoxia: (3) Pulmonary HTN: Admission and Anticipated Discharge Date Admission Date: October 08, 2019 Subjective Patient seen and examined with full respiratory precautions. The patient reports that his breathing is about at baseline. He chronically uses about 4 L at home and states whenever he transitions from his bilevel back to nasal cannula it takes him several minutes to equilibrate. There was concern about impending respiratory failure given his markedly elevated respiratory rate recorded in vital signs however the patient states that he feels quite comfortable currently and is not breathing in the 40s. His respiratory rate is in the mid to high 20s which he states is normal for him. He is not reported any cough or sputum production. He has had subjective and objective fevers overnight but no rigors. No new neurologic complaints. Review of Systems Review of Systems: Unchanged from prior Physical Exam Constitutional: no acute distress Cushingoid appearance. He does not appear in respiratory distress Neck: trachea midline, no thyromegaly Respiratory: Increased respiratory rate transitioning from BiPAP to nasal cannula however this settles down after a few minutes. He does have some rhonchorous respirations primarily over the trachea but no wheezing in the bilateral posterior lung moser Cardiovascular: Rate/Rhythm: + tachycardic Heart Sounds: normal S1 and normal S2; no murmur Extremities: no edema Gastrointestinal (Abdomen): normal bowel sounds, soft, nontender, no hepatosplenomegaly Musculoskeletal: Extremities: extremities normal to inspection Skin: no rashes, warm and dry Neurologic: Nonfocal exam Lymphatic: no cervical lymphadenopathy Results & Data Results & Data ([facility]) Vital Signs (Past 12 Hours) Vital Signs Temp Pulse Pulse Pulse Resp BP Pulse Ox 10/10/19 08:01 37 C 126 H 29 H 93/66 L 92 10/10/19 04:00 38.3 C H 121 H 37 H 106/48 L 92 10/10/19 03:25 104 H 24 98 10/10/19 00:00 37.7 C H 92 H 31 H 83/45 L 92 10/09/19 22:09 98 H 24 100 Laboratory Results 10/10/19 05:55 10/10/19 05:55 Diagnostic Findings No new films currently available PG Care Time/CCT Total # of Minutes Spent Total Time Spent with Patient: Total time spent is greater than 50% in coordination of care (as documented) at patient's floor/unit and/or counseling patient: Coding Level of Care Code 94146 Subseq Hosp Care Lvl 3 Diagnoses Acute respiratory failure with hypoxemia J96.01 Hypoxia R09.02 Pulmonary HTN I27.20 Time Spent (min) 40
[2019-10-10] MEDS: IPRATROPIUM BROMIDE HFA INHALER INH PRN ×2 (09:14→17:11)
[2019-10-10] MEDS: DOXYCYCLINE HYCLATE 100 MG CAP PO SCH ×2 (11:43→19:40)
--- NOTE | 2019-10-10 14:27 | Electrocardiogram Report ---
Test Reason : Blood Pressure : / mmHG Vent. Rate : 105 BPM Atrial Rate : 105 BPM P-R Int : 130 ms QRS Dur : 098 ms QT Int : 360 ms P-R-T Axes : 039 121 024 degrees QTc Int : 475 ms Sinus tachycardia Right ventricular hypertrophy Abnormal ECG When compared with ECG of 09-OCT-2019 10:34, No significant change Confirmed by Be Chaparro ([id number]) on 10/10/2019 2:27:00 PM Referred By: REFERRED SELF Confirmed By:Be Chaparro
--- NOTE | 2019-10-10 16:16 | Hospitalist Progress Note ---
Date of Service October 10, 2019 Assessment & Plan (1) Acute respiratory failure with hypoxemia: Worsening respiratory status in pulmonary sarcoid patient on chronic oxygen supplementation who has secondary pulmonary hypertension and associated right heart failure infected with COVID-19. Appears stable today from a breathing standpoint. Appreciate pulm thoughts on low threshold to transfer and considerations for hi flow oxygen if needed. Cont supportive care. (2) COVID-19: Cont Rocephin. Currently declining doxycycline 2/2 GI side effects, and azithromycin not recommended. Consideration may be given to transferring to a facility where remdesivir is available if condition worsens. Cont supportive care. (3) Pulmonary sarcoidosis: chronic, on methotrexate and chronic low dose prednisone, both of which are on hold. He is at risk for adrenal crisis under stress, so low threshold to given stress dose steroids if he declines. As he has been doing well off this for now, will continue to hold. (4) Depression: Cont celexa per home medications. Some additional anxiety reported. Lorazepam PRN offered. (5) ANGEELS (obstructive sleep apnea): CPAP when sleeping (6) Pulmonary HTN: thought secondary to sarcoid. Cont plan per pulm (7) HTN (hypertension): Low normal, holding Losartan at this time. (8) Chronic respiratory failure: Known to be oxygen dependent on 4L via nasal canula at baseline. (9) Right-sided heart failure: Cont per plan as above. (10) DMII (diabetes mellitus, type 2): Controlled on insulin correction factor with carb coverage. (11) DVT prophylaxis: Lovenox Full Code Dispo-uncertain at this time Coral Null DO [facility] Hospitalist Admission and Anticipated Discharge Date Admission Date: October 08, 2019 Subjective 48 yo M admitted for acute on chronic respiratory failure 2/2 COVID-19 pneumonia. He is feeling better today and reports a break in his fever overnight. He reports significant fatigue and has had two episodes of diarrhea. He is tolerating PO. He is reporting anxiety over the currentl situation. Review of Systems Review of Systems: All systems reviewed & are unremarkable except as noted in Subjective Physical Exam Physical Exam: CONSTITUTIONAL: obese, vitals as above, generally well- appearing EYES: pupils are equal and round bilaterally, normal conjunctivae, no scleral icterus ENT: external ear and nose normal, oropharynx clear NECK: trachea midline RESPIRATORY: clear to auscultation bilaterally, no crackles, rales or wheezes, normal respiratory effort. On baseline supplemental oxygen with intermittent BIPAP while sleeping. CARDIOVASCULAR: regular rate and rhythm, S1 and 2 heard without murmurs, gallops or rubs, no JVD, no peripheral edema GASTROINTESTINAL: soft, protuberant, nontender, no guarding MUSCULOSKELETAL: strength 5/5 throughout, head is normocephalic and atraumatic SKIN: warm and dry NEUROLOGIC: CN 2-12 grossly intact, no sensory deficit, normal cognition, normal speech, no gross focal deficits. PSYCHIATRIC: alert cooperative and oriented Results & Data Results & Data ([facility]) Vital Signs (Past 12 Hours) Vital Signs Temp Pulse Pulse Resp BP Pulse Ox 10/10/19 15:21 38.2 C H 104 H 26 H 121/64 93 10/10/19 11:03 37.1 C 109 H 26 H 96/54 L 95 10/10/19 09:16 118 H 27 H 99 10/10/19 09:15 118 H 27 H 99 10/10/19 08:18 126 H 10/10/19 08:01 37 C 126 H 29 H 93/66 L 92 10/10/19 08:00 85 Laboratory Results Short CBC 10/10/19 Range/Units 05:55 WBC 5.56 (4.8-10.8) K/uL Hgb 12.2 L (14.0-18.0) g/dL Hct 37.5 L (42-52) % Plt Count 219 (130-400) K/uL BMP 10/10/19 05:55 Sodium 132 L Potassium 3.4 L Chloride 97 L Carbon Dioxide 27 BUN 16 Creatinine 0.99 Glucose 91 Calcium 8.2 L Liver Function 10/10/19 Range/Units 05:55 Total Bilirubin 0.5 (0.2-1) mg/dl AST 53 H (15-37) U/L ALT 45 (12-78) U/L Alkaline Phosphatase 65 (45-117) U/L Albumin 2.4 L (3.4-5.0) gm/dl Medications Administered Current Inpatient Medications Acetaminophen (Tylenol) 650 mg PO Q4H PRN PRN Reason: Pain or Fever Stop: 11/07/19 16:27 Last Admin: 10/10/19 15:25 Dose: 650 mg Documented by: Al Hydrox/Mg Hydrox/Simethicone (Maalox) 15 ml PO Q4H PRN PRN Reason: Dyspepsia Stop: 11/07/19 16:27 Albuterol (Ventolin Hfa) 2 puffs INH Q6R PRN PRN Reason: Shortness Of Breath Or Wheezing Stop: 11/09/19 09:44 Aspirin (Aspirin Chew) 81 mg PO DAILY@0800 [facility] Stop: 11/09/19 07:59 Last Admin: 10/10/19 08:16 Dose: 81 mg Documented by: Dextrose (Dextrose 50%) 25 - 50 ml IV UD PRN; Protocol PRN Reason: Hypoglycemia Protocol Stop: 11/08/19 11:29 Digoxin (Lanoxin) 0.125 mg PO DAILY@08 [facility] Stop: 11/08/19 07:59 Last Admin: 10/10/19 08:18 Dose: 0.125 mg Documented by: Doxycycline Hyclate (Vibramycin) 100 mg PO BID@1199,1999 [facility] Stop: 10/16/19 13:59 Last Admin: 10/10/19 11:43 Dose: Not Given Documented by: Enoxaparin Sodium (Lovenox) 40 mg SQ DAILY@1999 [facility] Stop: 11/08/19 19:59 Last Admin: 10/09/19 19:57 Dose: 40 mg Documented by: Ferrous Sulfate (Feosol) 325 mg PO QAM@08 [facility] Stop: 11/09/19 07:59 Last Admin: 10/10/19 08:16 Dose: 325 mg Documented by: Fluticasone/Vilanterol (Breo Ellipta 100/25 Mcg Inh) 1 puffs INH DAILY@0800 [facility] Stop: 11/09/19 07:59 Last Admin: 10/10/19 08:17 Dose: 1 puffs Documented by: Folic Acid (Folvite) 1 mg PO DAILY@0800 [facility] Stop: 11/08/19 07:59 Last Admin: 10/10/19 08:17 Dose: 1 mg Documented by: Furosemide (Lasix) 20 mg PO DAILY@0800 [facility] Stop: 11/08/19 13:59 Last Admin: 10/10/19 08:16 Dose: 20 mg Documented by: Glucagon (Glucagen) 1 mg SQ UD PRN; Protocol PRN Reason: Hypoglycemia Protocol Stop: 11/08/19 11:29 Glucose (Glucose 40%) 15 - 30 gm PO UD PRN; Protocol PRN Reason: Hypoglycemia Protocol Stop: 11/08/19 11:29 Glucose (Dex4 Glucose) 4 - 8 tabs PO UD PRN; Protocol PRN Reason: Hypoglycemia Protocol Stop: 11/08/19 11:29 Ceftriaxone Sodium 2,000 mg/ (Dextrose) 50 mls @ 100 mls/hr IV Q24H YAA; Protocol Stop: 10/15/19 19:59 Last Infusion: 10/09/19 20:37 Dose: Infused Documented by: Promethazine HCl 12.5 mg/ (Sodium Chloride) 50.5 mls @ 202 mls/hr IV Q6H PRN PRN Reason: Nausea And Vomiting Stop: 11/08/19 11:50 Insulin Aspart (Novolog Flexpen) 0 units SC ACHS [facility] Stop: 11/08/19 11:29 Last Admin: 10/10/19 12:09 Dose: Not Given Documented by: Ipratropium Carroll (Atrovent Hfa) 2 puffs INH Q6R PRN PRN Reason: SOB/WHEEZING Stop: 11/08/19 12:14 Last Admin: 10/10/19 09:14 Dose: 2 puffs Documented by: Lorazepam (Ativan) 0.5 mg PO TID PRN PRN Reason: Anxiety Stop: 11/09/19 16:14 Losartan Potassium (Cozaar) 25 mg PO DAILY@0800 [facility] Stop: 11/08/19 07:59 Last Admin: 10/09/19 08:55 Dose: 25 mg Documented by: Magnesium Hydroxide (Milk Of Magnesia) 30 ml PO Q12H PRN PRN Reason: Constipation Stop: 11/07/19 16:27 Miscellaneous (Carbohydrates For Hypoglycemia) 15 - 30 gm PO UD PRN PRN Reason: Hypoglycemia Treatment Stop: 11/08/19 11:29 Nitroglycerin (Nitrostat) 0.4 mg SL UD PRN PRN Reason: Chest Pain Stop: 11/07/19 16:27 Pantoprazole Sodium (Protonix) 40 mg PO QAM@0800 [facility] Stop: 11/08/19 07:59 Last Admin: 10/10/19 08:16 Dose: 40 mg Documented by: Polyethylene Glycol (Miralax Powder Packet) 17 gm PO DAILY PRN PRN Reason: Constipation Stop: 11/07/19 16:27 Potassium Chloride (Klor-Con M20) 20 meq PO BID@ [facility] Stop: 11/07/19 19:59 Last Admin: 10/10/19 08:16 Dose: 20 meq Documented by: Tamsulosin HCl (Flomax) 0.4 mg PO DAILY@0800 [facility] Stop: 11/08/19 07:59 Last Admin: 10/10/19 08:17 Dose: 0.4 mg Documented by: Zinc Sulfate (Zinc Sulfate) 220 mg PO BID@ [facility] Stop: 11/08/19 11:59 Last Admin: 10/10/19 08:16 Dose: 220 mg Documented by:
[2019-10-10] MEDS: ALBUTEROL HFA 8 GM INHALER INH PRN (17:11)
[2019-10-10] MEDS: cefTRIAXone SODIUM 2,000 MG in DEXTROSE 5% 50 ML IV SCH (19:38)
[2019-10-10] MEDS: ENOXAPARIN INJ 40 MG/0.4 ML SYR SQ SCH (19:39)
[2019-10-11] MEDS: LORazepam 0.5 MG TAB PO PRN (00:26)
[2019-10-11] MEDS: ACETAMINOPHEN 325 MG TAB PO PRN ×2 (03:20→18:25)
[2019-10-11 06:16] LABS: Eosinophils # (auto) 0.01 K/uL (0-0.5); Eosinophils % (auto) 0.4 %; Hematocrit (blood only) 36.6 % (42-52); Hemoglobin 11.8 g/dL (14.0-18.0); Immature Granulocytes # (auto) 0.02 K/uL (0.00-0.02); Immature Granulocytes % (auto) 0.7 %; Lymphocytes # (auto) 0.24 K/uL (1.2-3.4); Lymphocytes % (auto) 8.7 %; Mean Corpuscular Hemoglobin 30.6 pg (25-34); Mean Corpuscular Hgb Conc 32.2 g/dL (32-36); Mean Corpuscular Volume 95.1 fL (80-100); Mean Platelet Volume 8.8 fL (7.4-10.4); Monocytes # (auto) 0.25 K/uL (0.11-0.59); Neutrophils # (auto) 2.25 K/uL (1.4-6.5); Neutrophils % (auto) 81.2 %; Platelet Count 189 K/uL (130-400); RDW Coefficient of Variation 16.9 % (11.5-14.5); RDW Standard Deviation 57.8 fL (36.4-46.3); Red Blood Count 3.85 M/uL (4.7-6.1); White Blood Count 2.77 K/uL (4.8-10.8)
[2019-10-11 06:43] LABS: D Dimer 3440 ug/L FEU (0-500)
[2019-10-11 06:56] LABS: BUN Creatinine Ratio 13.9 (10-20); C Reactive Protein 13.6 mg/dl (0-0.29); Calcium 8.2 mg/dl (8.5-10.1); Creatinine Clr Calc Pharmacy 137.7 ml/min; Est GFR (Non-African American) 101.8; Potassium 3.3 mmol/L (3.5-5.1)
[2019-10-11] MEDS ORDERED: POTASSIUM CHLORIDE 20 MEQ TABCR PO ONE ×2 (08:15→10:45)
[2019-10-11] MEDS: FERROUS SULFATE 325 MG TAB PO SCH (08:21)
[2019-10-11] MEDS: ZINC SULFATE 220 MG CAPSULE PO SCH ×2 (08:21→19:33)
[2019-10-11] MEDS: ASPIRIN 81 MG CHEW PO SCH (08:21)
[2019-10-11] MEDS: TAMSULOSIN HCL 0.4 MG CAP PO SCH (08:22)
[2019-10-11] MEDS: FUROSEMIDE 20 MG TAB PO SCH ×2 (08:22→10:32)
[2019-10-11] MEDS: DIGOXIN 0.125 MG TAB PO SCH (08:22)
[2019-10-11] MEDS: INSULIN ASPART 100 UNITS/ML 3 ML PEN SC SCH ×4 (08:23→20:21)
[2019-10-11] MEDS: FLUTICASONE/VILANTEROL 100/25MCG 14 PUFFS/INHALER INH SCH (08:23)
[2019-10-11] MEDS: PANTOprazole 40 MG TAB PO SCH (08:23)
--- NOTE | 2019-10-11 08:47 | Pulmonology Progress Note ---
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 Recommendations: 1. Coronavirus pneumonia: Would continue supportive care at this point time. Can continue with inhaled corticosteroids. He does not appear overtly bronchospastic currently avoid nebulizers. Would not use high-dose systemic steroids at this point time unless the patient becomes overtly bronchospastic. Completing a course of antibiotics for superimposed infection as well. Currently day #3 of 7. CRP and d-dimer are stable and would not recommend serial labs unless the patient should clinically worsen. 2. Hypoxemic/hypercarbic respiratory failure: Continue supplemental oxygen titrated to keep saturations at or above 90%. Could transition to high flow if needed. Continue nocturnal positive airway pressure at home settings and as needed during the day. Appears to be approaching his baseline oxygen requirement 3. Secondary pulmonary hypertension: Patient likely has pulmonary hypertension related to underlying sarcoid. No comment on diastolic filling parameters or EDP. Pulmonary venoocclusive disease is possible given the compression of the calcified lymph nodes, the pulmonary veins are quite prominent on his CT scan. Would continue diuretics at this point in time, added Lasix 20 mg daily. Close attention to serum creatinine given his underlying kidney disease is recommended. Potassium repletion per primary 4. Advanced pulmonary sarcoid: The patient has evidence of mediastinal and hilar calcified lymph nodes as well as parenchymal lung disease. Holding methotrexate for now. He is been chronically on prednisone and is at risk for relative adrenal suppression. If the patient develops hemodynamic instability would have a low threshold for restarting stress dose of prednisone however he appears to be doing reasonably well currently. Continue his Breo. As needed albuterol also reasonable. 5. Disposition: Patient appears to be improving clinically with supportive care. Would continue to manage at this point time. Anticipate discharge home once the patient reaches his baseline. He will need continued isolation at home for a total of 7 days and 3 days of afebrile with improved pulmonary symptoms off antipyretics Discussed with hospitalist service. We will continue to follow (2) Hypoxia: (3) Pulmonary HTN: Admission and Anticipated Discharge Date Admission Date: October 08, 2019 Subjective Patient seen and examined using full PPE. The patient states his breathing is slightly better. He use noninvasive positive pressure ventilation again overnight. He states he continues to have some difficulty transitioning between his BiPAP and nasal cannula in the morning but this is typical for him. He has been tolerating a diet. He was ambulatory slightly yesterday and states that he feels his breathing is approaching his baseline. He was febrile yesterday afternoon but currently is afebrile. He is complaining of some mild chest discomfort but no palpitations and feels this is associated with his cough. No significant lower extremity edema Review of Systems Review of Systems: Unchanged from prior Physical Exam Constitutional: no acute distress Neck: trachea midline, no thyromegaly Respiratory: Coarse breath sounds bilaterally without wheezing Cardiovascular: Rate/Rhythm: + tachycardic Heart Sounds: normal S1 and normal S2; no murmur Extremities: no edema Gastrointestinal (Abdomen): normal bowel sounds, soft, nontender, no he patosplenomegaly Musculoskeletal: Extremities: extremities normal to inspection Skin: no rashes, warm and dry Lymphatic: no cervical lymphadenopathy Results & Data Results & Data ([facility]) Vital Signs (Past 12 Hours) Vital Signs Temp Pulse Pulse Resp BP Pulse Ox 10/11/19 08:22 88 10/11/19 07:48 37.2 C 88 18 96/55 L 99 10/11/19 03:33 93 H 22 93 10/11/19 03:07 37.4 C 108 H 24 104/68 93 10/11/19 00:16 83 22 108/67 98 10/10/19 23:59 98 H 10/10/19 21:00 90 23 97 Laboratory Results 10/11/19 05:19 10/11/19 05:19 CRP decreasing D-dimer decreasing Diagnostic Findings No new imaging PG Care Time/CCT Total # of Minutes Spent Total Time Spent with Patient: Total time spent is greater than 50% in coordination of care (as documented) at patient's floor/unit and/or counseling patient: Coding Level of Care Code 68898 Subseq Hosp Care Lvl 3 Diagnoses Acute respiratory failure with hypoxemia J96.01 Hypoxia R09.02 Pulmonary HTN I27.20 Time Spent (min) 35
--- NOTE | 2019-10-11 10:23 | Hospitalist Progress Note ---
Date of Service October 11, 2019 Assessment & Plan (1) Acute respiratory failure with hypoxemia: Worsening respiratory status in pulmonary sarcoid patient on chronic oxygen supplementation who has secondary pulmonary hypertension and associated right heart failure infected with COVID-19. Appears stable today from a breathing standpoint. Appreciate pulm thoughts on low threshold to transfer and considerations for hi flow oxygen if needed, however, he is improving so this is less likely to be needed. Cont ceftriaxone and current therapy. (2) COVID-19: Cont Rocephin. Currently declining doxycycline 2/2 GI side effects, and azithromycin not recommended. Will continue to avoid both of these. Consideration may be given to transferring to a facility where remdesivir is available if condition worsens, however, he is starting to improve clinically so hopeful this will not be necessary. (3) Pulmonary sarcoidosis: chronic, on methotrexate and chronic low dose prednisone, both of which are on hold. He is at risk for adrenal crisis under stress, so low threshold to given stress dose steroids if he declines. As he has been doing well off this for now, will continue to hold. (4) Depression: Cont celexa per home medications. Some additional anxiety reported. Lorazepam PRN offered and patient states this helped him overnight. Will cont for now as inpatient. (5) ANGELES (obstructive sleep apnea): CPAP when sleeping (6) Pulmonary HTN: chronic, on home oxygen support. Thought secondary to sarcoid. Cont plan per pulm (7) HTN (hypertension): Low normal, holding Losartan at this time. (8) Chronic respiratory failure: Known to be oxygen dependent on 4L via nasal canula at baseline. (9) Right-sided heart failure: Breathing has improved. Lasix 20mg daily. (10) DMII (diabetes mellitus, type 2): Controlled on insulin correction factor with carb coverage. (11) DVT prophylaxis: Lovenox Full Code Dispo-uncertain at this time but is improving. Hopeful to send home once continued clinical improvement is demonstrated. Coral Null DO [facility] Hospitalist Admission and Anticipated Discharge Date Admission Date: October 08, 2019 Subjective Doing well today Feels improved Had some ativan for anxiety overnight and feels that helped him breathing is better, denies pain and not coughing still fatigued which is expected. only one episode of diarrhea this morning since yesterday and he denies abdominal pain tolerating PO some gas in stomach causing eructation 2/2 positive pressure mask which is a known issue for him. afebrile overnight Review of Systems Review of Systems: All systems reviewed & are unremarkable except as noted in Subjective Physical Exam Physical Exam: CONSTITUTIONAL: obese, vitals as above, generally well- appearing EYES: pupils are equal and round bilaterally, normal conjunctivae, no scleral icterus ENT: external ear and nose normal, mucous membranes are moist. NECK: trachea midline RESPIRATORY: Crackles heard at left base, otherwise clear to auscultation without wheezing heard, good air movement and no increased work of breathing. On baseline supplemental oxygen with intermittent BIPAP while sleeping. CARDIOVASCULAR: regular rate and rhythm, S1 and 2 heard without murmurs, gallops or rubs, no JVD, no peripheral edema GASTROINTESTINAL: soft, protuberant, nontender, no guarding MUSCULOSKELETAL: strength 5/5 throughout, head is normocephalic and atraumatic SKIN: warm and dry NEUROLOGIC: CN 2-12 grossly intact, no sensory deficit, normal cognition, normal speech, no gross focal deficits. PSYCHIATRIC: alert cooperative and oriented Results & Data Results & Data ([facility]) Vital Signs (Past 12 Hours) Vital Signs Temp Pulse Pulse Resp BP Pulse Ox 10/11/19 08:22 88 10/11/19 07:48 37.2 C 88 18 96/55 L 99 10/11/19 03:33 93 H 22 93 10/11/19 03:07 37.4 C 108 H 24 104/68 93 10/11/19 00:16 83 22 108/67 98 10/10/19 23:59 98 H Laboratory Results Short CBC 10/11/19 Range/Units 05:19 WBC 2.77 L (4.8-10.8) K/uL Hgb 11.8 L (14.0-18.0) g/dL Hct 36.6 L (42-52) % Plt Count 189 (130-400) K/uL BMP 10/11/19 05:19 Sodium 133 L Potassium 3.3 L Chloride 98 Carbon Dioxide 28 BUN 12 Creatinine 0.86 Glucose 86 Calcium 8.2 L Medications Administered Current Inpatient Medications Acetaminophen (Tylenol) 650 mg PO Q4H PRN PRN Reason: Pain or Fever Stop: 11/07/19 16:27 Last Admin: 10/11/19 03:20 Dose: 650 mg Documented by: Al Hydrox/Mg Hydrox/Simethicone (Maalox) 15 ml PO Q4H PRN PRN Reason: Dyspepsia Stop: 11/07/19 16:27 Albuterol (Ventolin Hfa) 2 puffs INH Q6R PRN PRN Reason: Shortness Of Breath Or Wheezing Stop: 11/09/19 09:44 Last Admin: 10/10/19 17:11 Dose: 2 puffs Documented by: Aspirin (Aspirin Chew) 81 mg PO DAILY@0800 [facility] Stop: 11/09/19 07:59 Last Admin: 10/11/19 08:21 Dose: 81 mg Documented by: Dextrose (Dextrose 50%) 25 - 50 ml IV UD PRN; Protocol PRN Reason: Hypoglycemia Protocol Stop: 11/08/19 11:29 Digoxin (Lanoxin) 0.125 mg PO DAILY@0800 [facility] Stop: 11/08/19 07:59 Last Admin: 10/11/19 08:22 Dose: 0.125 mg Documented by: Enoxaparin Sodium (Lovenox) 40 mg SQ DAILY@1999 [facility] Stop: 11/08/19 19:59 Last Admin: 10/10/19 19:39 Dose: 40 mg Documented by: Ferrous Sulfate (Feosol) 325 mg PO QAM@0800 [facility] Stop: 11/09/19 07:59 Last Admin: 10/11/19 08:21 Dose: 325 mg Documented by: Fluticasone/Vilanterol (Breo Ellipta 100/25 Mcg Inh) 1 puffs INH DAILY@0800 [facility] Stop: 11/09/19 07:59 Last Admin: 10/11/19 08:23 Dose: 1 puffs Documented by: Folic Acid (Folvite) 1 mg PO DAILY@0800 [facility] Stop: 11/08/19 07:59 Last Admin: 10/10/19 08:17 Dose: 1 mg Documented by: Furosemide (Lasix) 20 mg PO DAILY@0800 [facility] Stop: 11/08/19 13:59 Last Admin: 10/11/19 08:22 Dose: 20 mg Documented by: Furosemide (Lasix) 20 mg PO QAM [facility] Stop: 11/10/19 08:59 Glucagon (Glucagen) 1 mg SQ UD PRN; Protocol PRN Reason: Hypoglycemia Protocol Stop: 11/08/19 11:29 Glucose (Glucose 40%) 15 - 30 gm PO UD PRN; Protocol PRN Reason: Hypoglycemia Protocol Stop: 11/08/19 11:29 Glucose (Dex4 Glucose) 4 - 8 tabs PO UD PRN; Protocol PRN Reason: Hypoglycemia Protocol Stop: 11/08/19 11:29 Ceftriaxone Sodium 2,000 mg/ (Dextrose) 50 mls @ 100 mls/hr IV Q24H YAA; Protocol Stop: 10/15/19 19:59 Last Infusion: 10/10/19 20:10 Dose: Infused Documented by: Promethazine HCl 12.5 mg/ (Sodium Chloride) 50.5 mls @ 202 mls/hr IV Q6H PRN PRN Reason: Nausea And Vomiting Stop: 11/08/19 11:50 Insulin Aspart (Novolog Flexpen) 0 units SC ACHS [facility] Stop: 11/08/19 11:29 Last Admin: 10/11/19 08:23 Dose: Not Given Documented by: Ipratropium [place] (Atrovent Hfa) 2 puffs INH Q6R PRN PRN Reason: SOB/WHEEZING Stop: 11/08/19 12:14 Last Admin: 10/10/19 17:11 Dose: 2 puffs Documented by: Lorazepam (Ativan) 0.5 mg PO TID PRN PRN Reason: Anxiety Stop: 11/09/19 16:14 Last Admin: 10/11/19 00:26 Dose: 0.5 mg Documented by: Losartan Potassium (Cozaar) 25 mg PO DAILY@0800 YAA Stop: 11/08/19 07:59 Last Admin: 10/09/19 08:55 Dose: 25 mg Documented by: Magnesium Hydroxide (Milk Of Magnesia) 30 ml PO Q12H PRN PRN Reason: Constipation Stop: 11/07/19 16:27 Miscellaneous (Carbohydrates For Hypoglycemia) 15 - 30 gm PO UD PRN PRN Reason: Hypoglycemia Treatment Stop: 11/08/19 11:29 Nitroglycerin (Nitrostat) 0.4 mg SL UD PRN PRN Reason: Chest Pain Stop: 11/07/19 16:27 Pantoprazole Sodium (Protonix) 40 mg PO QAM@0800 [facility] Stop: 11/08/19 07:59 Last Admin: 10/11/19 08:23 Dose: 40 mg Documented by: Polyethylene Glycol (Miralax Powder Packet) 17 gm PO DAILY PRN PRN Reason: Constipation Stop: 11/07/19 16:27 Potassium Chloride (Klor-Con M20) 20 meq PO BID@ [facility] Stop: 11/07/19 19:59 Last Admin: 10/10/19 19:39 Dose: 20 meq Documented by: Tamsulosin HCl (Flomax) 0.4 mg PO DAILY@0800 [facility] Stop: 11/08/19 07:59 Last Admin: 10/11/19 08:22 Dose: 0.4 mg Documented by: Zinc Sulfate (Zinc Sulfate) 220 mg PO BID@ [facility] Stop: 11/08/19 11:59 Last Admin: 10/11/19 08:21 Dose: 220 mg Documented by:
[2019-10-11] MEDS: POTASSIUM CHLORIDE 20 MEQ TABCR PO SCH ×2 (10:27→20:13)
[2019-10-11] MEDS: ENOXAPARIN INJ 40 MG/0.4 ML SYR SQ SCH (19:33)
[2019-10-11] MEDS: cefTRIAXone SODIUM 2,000 MG in DEXTROSE 5% 50 ML IV SCH (19:34)
[2019-10-12] MEDS: ACETAMINOPHEN 325 MG TAB PO PRN ×2 (04:26→19:02)
[2019-10-12] MEDS: ZINC SULFATE 220 MG CAPSULE PO SCH ×2 (08:45→20:35)
[2019-10-12] MEDS: FLUTICASONE/VILANTEROL 100/25MCG 14 PUFFS/INHALER INH SCH (08:45)
[2019-10-12] MEDS: TAMSULOSIN HCL 0.4 MG CAP PO SCH (08:46)
[2019-10-12] MEDS: FERROUS SULFATE 325 MG TAB PO SCH (08:46)
[2019-10-12] MEDS: ASPIRIN 81 MG CHEW PO SCH (08:46)
[2019-10-12] MEDS: FUROSEMIDE 20 MG TAB PO SCH ×2 (08:46→08:49)
[2019-10-12] MEDS: PANTOprazole 40 MG TAB PO SCH (08:46)
[2019-10-12] MEDS: DIGOXIN 0.125 MG TAB PO SCH (08:47)
[2019-10-12] MEDS: POTASSIUM CHLORIDE 20 MEQ TABCR PO SCH ×2 (08:47→20:40)
[2019-10-12] MEDS: INSULIN ASPART 100 UNITS/ML 3 ML PEN SC SCH ×4 (08:48→21:04)
--- NOTE | 2019-10-12 11:00 | Hospitalist Progress Note ---
Date of Service October 12, 2019 Assessment & Plan (1) Acute respiratory failure with hypoxemia: Pulmonary sarcoid patient on chronic oxygen supplementation who has secondary pulmonary hypertension and associated right heart failure infected with COVID-19. Appears stable today from a breathing standpoint. Cont Rocephin and current therapies. (2) COVID-19: Cont Rocephin. Currently declining doxycycline 2/2 GI side effects, and azithromycin not recommended. Will continue to avoid both of these. Consideration may be given to transferring to a facility where remdesivir is available if condition worsens, however, he is starting to improve clinically so hopeful this will not be necessary. (3) Diarrhea: Likely associated with COVID-19 infection, however, he is on abx and it is persistent with increased frequency. Will screen for c-diff and other infection. (4) Pulmonary sarcoidosis: chronic, on methotrexate and chronic low dose prednisone, both of which a re on hold. He is at risk for adrenal crisis under stress, so low threshold to given stress dose steroids if he declines. As he has been doing well off this for now, will continue to hold. (5) Depression: Cont celexa per home medications. Some additional anxiety reported. Lorazepam PRN (6) ANGELES (obstructive sleep apnea): CPAP when sleeping (7) Pulmonary HTN: chronic, on home oxygen support. Thought secondary to sarcoid. Cont plan per pulm (8) HTN (hypertension): Low normal, holding Losartan at this time. (9) Chronic respiratory failure: Known to be oxygen dependent on 4L via nasal canula at baseline. Currently oxygenating 95% on 6LPM (10) Right-sided heart failure: Breathing has improved. Lasix 20mg daily, which was held for hypotension (11) DMII (diabetes mellitus, type 2): Controlled on insulin correction factor with carb coverage. (12) DVT prophylaxis: Lovenox Full Code Dispo-uncertain at this time but is improving. Hopeful to send home once continued clinical improvement is demonstrated. Coral Null DO [facility] Hospitalist Admission and Anticipated Discharge Date Admission Date: October 08, 2019 Subjective pt doing well today, reports breathing is about the same two episodes of loose stool this am, no associated abdominal discomfort we discussed the holding of his prednisone and he noted "feeling different" as a result. We talked about adding it back and he would like to continue to hold for now. 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 NECK: trachea midline RESPIRATORY: Clear to auscultation, good air movement and no increased work of breathing. On baseline supplemental oxygen with intermittent BIPAP while sleeping. CARDIOVASCULAR: regular rate and rhythm, S1 and 2 heard without murmurs, gallops or rubs, no JVD, no peripheral edema GASTROINTESTINAL: soft, protuberant, nontender, no guarding MUSCULOSKELETAL: strength 5/5 throughout, head is normocephalic and atraumatic SKIN: warm and dry NEUROLOGIC: CN 2-12 grossly intact, no sensory deficit, normal cognition, normal speech, no gross focal deficits. PSYCHIATRIC: alert cooperative and oriented Results & Data Results & Data ([facility]) Vital Signs (Past 12 Hours) Vital Signs Temp Pulse Pulse Resp BP Pulse Ox 10/12/19 08:47 78 10/12/19 08:00 36.8 C 78 22 91/62 L 95 10/12/19 04:29 36.9 C 75 20 154/97 H 97 10/12/19 03:31 89 22 96 10/11/19 23:06 37.0 C 73 20 106/59 L 100 Medications Administered Current Inpatient Medications Acetaminophen (Tylenol) 650 mg PO Q4H PRN PRN Reason: Pain or Fever Stop: 11/07/19 16:27 Last Admin: 10/12/19 04:26 Dose: 650 mg Documented by: Al Hydrox/Mg Hydrox/Simethicone (Maalox) 15 ml PO Q4H PRN PRN Reason: Dyspepsia Stop: 11/07/19 16:27 Albuterol (Ventolin Hfa) 2 puffs INH Q6R PRN PRN Reason: Shortness Of Breath Or Wheezing Stop: 11/09/19 09:44 Last Admin: 10/10/19 17:11 Dose: 2 puffs Documented by: Aspirin (Aspirin Chew) 81 mg PO DAILY@0800 YAA Stop: 11/09/19 07:59 Last Admin: 10/12/19 08:46 Dose: 81 mg Documented by: Dextrose (Dextrose 50%) 25 - 50 ml IV UD PRN; Protocol PRN Reason: Hypoglycemia Protocol Stop: 11/08/19 11:29 Digoxin (Lanoxin) 0.125 mg PO DAILY@0800 [facility] Stop: 11/08/19 07:59 Last Admin: 10/12/19 08:47 Dose: 0.125 mg Documented by: Enoxaparin Sodium (Lovenox) 40 mg SQ DAILY@1999 [facility] Stop: 11/08/19 19:59 Last Admin: 10/11/19 19:33 Dose: 40 mg Documented by: Ferrous Sulfate (Feosol) 325 mg PO QAM@0800 [facility] Stop: 11/09/19 07:59 Last Admin: 10/12/19 08:46 Dose: 325 mg Documented by: Fluticasone/Vilanterol (Breo Ellipta 100/25 Mcg Inh) 1 puffs INH DAILY@0800 [facility] Stop: 11/09/19 07:59 Last Admin: 10/12/19 08:45 Dose: 1 puffs Documented by: Folic Acid (Folvite) 1 mg PO DAILY@0800 [facility] Stop: 11/08/19 07:59 Last Admin: 10/10/19 08:17 Dose: 1 mg Documented by: Furosemide (Lasix) 20 mg PO DAILY@0800 [facility] Stop: 11/08/19 13:59 Last Admin: 10/12/19 08:46 Dose: Not Given Documented by: Furosemide (Lasix) 20 mg PO QAM [facility] Stop: 11/10/19 08:59 Last Admin: 10/12/19 08:49 Dose: Not Given Documented by: Glucagon (Glucagen) 1 mg SQ UD PRN; Protocol PRN Reason: Hypoglycemia Protocol Stop: 11/08/19 11:29 Glucose (Glucose 40%) 15 - 30 gm PO UD PRN; Protocol PRN Reason: Hypoglycemia Protocol Stop: 11/08/19 11:29 Glucose (Dex4 Glucose) 4 - 8 tabs PO UD PRN; Protocol PRN Reason: Hypoglycemia Protocol Stop: 11/08/19 11:29 Ceftriaxone Sodium 2,000 mg/ (Dextrose) 50 mls @ 100 mls/hr IV Q24H YAA; Protocol Stop: 10/15/19 19:59 Last Infusion: 10/11/19 20:20 Dose: Infused Documented by: Promethazine HCl 12.5 mg/ (Sodium Chloride) 50.5 mls @ 202 mls/hr IV Q6H PRN PRN Reason: Nausea And Vomiting Stop: 11/08/19 11:50 Insulin Aspart (Novolog Flexpen) 0 units SC ACHS [facility] Stop: 11/08/19 11:29 Last Admin: 10/12/19 08:48 Dose: Not Given Documented by: Ipratropium [place] (Atrovent Hfa) 2 puffs INH Q6R PRN PRN Reason: SOB/WHEEZING Stop: 11/08/19 12:14 Last Admin: 10/10/19 17:11 Dose: 2 puffs Documented by: Lorazepam (Ativan) 0.5 mg PO TID PRN PRN Reason: Anxiety Stop: 11/09/19 16:14 Last Admin: 10/11/19 00:26 Dose: 0.5 mg Documented by: Losartan Potassium (Cozaar) 25 mg PO DAILY@0800 [facility] Stop: 11/08/19 07:59 Last Admin: 10/09/19 08:55 Dose: 25 mg Documented by: Magnesium Hydroxide (Milk Of Magnesia) 30 ml PO Q12H PRN PRN Reason: Constipation Stop: 11/07/19 16:27 Miscellaneous (Carbohydrates For Hypoglycemia) 15 - 30 gm PO UD PRN PRN Reason: Hypoglycemia Treatment Stop: 11/08/19 11:29 Nitroglycerin (Nitrostat) 0.4 mg SL UD PRN PRN Reason: Chest Pain Stop: 11/07/19 16:27 Pantoprazole Sodium (Protonix) 40 mg PO QAM@0800 [facility] Stop: 11/08/19 07:59 Last Admin: 10/12/19 08:46 Dose: 40 mg Documented by: Polyethylene Glycol (Miralax Powder Packet) 17 gm PO DAILY PRN PRN Reason: Constipation Stop: 11/07/19 16:27 Potassium Chloride (Klor-Con M20) 20 meq PO BID@0800,1999 [facility] Stop: 11/07/19 19:59 Last Admin: 10/12/19 08:47 Dose: 20 meq Documented by: Tamsulosin HCl (Flomax) 0.4 mg PO DAILY@0800 [facility] Stop: 11/08/19 07:59 Last Admin: 10/12/19 08:46 Dose: Not Given Documented by: Zinc Sulfate (Zinc Sulfate) 220 mg PO BID@ [facility] Stop: 11/08/19 11:59 Last Admin: 10/12/19 08:45 Dose: 220 mg Documented by:
--- NOTE | 2019-10-12 12:38 | Infectious Disease Consult ---
Date of Consultation October 12, 2019 Assessment & Plan (1) COVID-19: Agree with current care plan, on CTX for 7 days for ? CAP in addition to COVID, can change to azithro upon d/c if he is stable for d/c prior to completing emperic abx. No additional ID recs. History of Present Illness Attending Physician: Coral Null, pt admitted several days ago with sob, fever and low O2 sats at home. has sarcoidosis, was staying at home but COVID testing returned +, no clear contact. ct chest on admission showed b/l opacity. Afebrile. remains on steorids, 5/7 wbc 2.7. Pt was evaluated by pulm upon admission, experimental therapy not given, clinically improving. currently on 6LO2. blood cultures negative. on ctx for ? superimposed CAP, was also on doxy but stopped due to GI upset. ID consulted for COVID + testing on admission. Allergies Allergy/AdvReac Type Severity Reaction Status Date / Time doxycycline AdvReac Severe Vomiting Verified 10/09/19 13:47 Home Medications Home Medications Medication Instructions Recorded Confirmed Type aspirin [Claire Chewable Aspirin] 81 mg PO DAILY 10/08/19 10/08/19 History citalopram 20 mg PO DAILY 10/08/19 10/08/19 History digoxin [Digitek] 125 mcg PO DAILY 10/08/19 10/08/19 History empagliflozin [Jardiance] 25 mg PO DAILY 10/08/19 10/08/19 History ferrous sulfate 325 mg PO QAM 10/08/19 10/08/19 History fluticasone furoate-vilanterol 1 inh INHALATION DAILY 10/08/19 10/08/19 History [Breo Ellipta] folic acid 1 mg PO DAILY 10/08/19 10/08/19 History losartan 25 mg PO DAILY 10/08/19 10/08/19 History metformin 1,000 mg PO DAILY 10/08/19 10/08/19 History methotrexate sodium 2.5 mg PO DIRECTED 10/08/19 10/08/19 History omeprazole 20 mg PO QAM 10/08/19 10/08/19 History potassium chloride 20 meq PO BID 10/08/19 10/08/19 History prednisone 5 mg PO DAILY 10/08/19 10/08/19 History semaglutide [Ozempic] 1 mg SUBCUT WK 10/08/19 10/08/19 History spironolactone 25 mg PO BID 10/08/19 10/08/19 History tamsulosin 0.4 mg PO DAILY 10/08/19 10/08/19 History torsemide 80 mg PO BID 10/08/19 10/08/19 History Patient History Social History Preferred Language: Khmer Communication Ability: Effective File Clerk Required: No Beliefs That Will Affect Care: None Current Living Situation: Alone Feels Safe at Home: Yes Smoking Status: Never smoker Tobacco Type: smokeless tobacco ; Hx Alcohol Use: No (rare) Hx Substance Use: No Review of Systems Review of Systems: Other per H&P Results & Data ([facility]) Vital Signs (Past 12 Hours) Vital Signs Temp Pulse Pulse Resp BP Pulse Ox 10/12/19 08:47 78 10/12/19 08:00 36.8 C 78 22 91/62 L 95 10/12/19 04:29 36.9 C 75 20 154/97 H 97 10/12/19 03:31 89 22 96 Laboratory Results Microbiology 10/08/19 11:31 Blood Aerobic Blood Culture - Preliminary No growth in Aerobic bottle after 48 hours. 10/08/19 11:31 Blood Anaerobic Blood Culture - Preliminary No growth in Anaerobic bottle after 48 hours. 10/08/19 11:31 Blood Aerobic Blood Culture - Preliminary No growth in Aerobic bottle after 48 hours. 10/08/19 11:31 Blood Anaerobic Blood Culture - Preliminary No growth in Anaerobic bottle after 48 hours. PG Care Time/CCT Total # of Minutes Spent Total Time Spent with Patient: Total time spent is greater than 50% in coordination of care (as documented) at patient's floor/unit and/or counseling patient: Coding Level of Care Code 10857 Inpt Consult Level 2 Diagnoses COVID-19 U07.1
--- NOTE | 2019-10-12 13:07 | Pulmonology Progress Note ---
Date of Service October 12, 2019 Assessment & Plan (1) COVID-19: Impression: 48-year-old male with sarcoid, secondary pulmonary hypertension, and chronic hypoxemic respiratory failure admitted now with coronavirus infection and associated pneumonia. He is clinically improved over the last 24 hours. Recommendation: 1. Acute on chronic hypoxemic respiratory failure. Oxygen requirement appears to be back to baseline. Continue noninvasive positive pressure ventilation at night as well as oxygen during the day titrated to keep saturations at or above 88%. 2. Coronavirus infection: Continue supportive care. The patient appears to be improving significantly. 3. History of sarcoid: Maintained in the outpatient setting on methotrexate and prednisone. Okay to restart prednisone at 5 mg daily. Would defer on methotrexate for now. Can continue inhalers. The patient is improving clinically and can be considered for discharge home once his respiratory status is back to baseline (2) Acute respiratory failure with hypoxemia: Admission and Anticipated Discharge Date Admission Date: October 08, 2019 Subjective No overnight issues. Vital signs are stable with improved respiratory rate and oxygenation at baseline Review of Systems Review of Systems: Refer to hospitalist H&P Physical Exam Physical Exam: Exam deferred due to coronavirus restriction. Per [facility] policy, please refer to physical exam contacted by hospitalist from today Results & Data Results & Data ([facility]) Vital Signs (Past 12 Hours) Vital Signs Temp Pulse Pulse Resp BP Pulse Ox 10/12/19 08:47 78 10/12/19 08:00 36.8 C 76 78 22 91/62 L 95 10/12/19 04:29 36.9 C 75 20 154/97 H 97 10/12/19 03:31 89 22 96 Laboratory Results 10/11/19 05:19 10/11/19 05:19 Diagnostic Findings No new films PG Care Time/CCT Total # of Minutes Spent Total Time Spent with Patient: Total time spent is greater than 50% in coordination of care (as documented) at patient's floor/unit and/or counseling patient: Coding Level of Care Code 06573 Subseq Hosp Care Lvl 2 Diagnoses COVID-19 U07.1 Acute respiratory failure with hypoxemia J96.01
[2019-10-12] MEDS: predniSONE 5 MG TAB PO SCH (14:09)
[2019-10-12] MEDS: ENOXAPARIN INJ 40 MG/0.4 ML SYR SQ SCH (20:35)
[2019-10-12] MEDS: cefTRIAXone SODIUM 2,000 MG in DEXTROSE 5% 50 ML IV SCH (20:39)
[2019-10-13] MEDS: ACETAMINOPHEN 325 MG TAB PO PRN ×2 (04:32→17:18)
[2019-10-13 05:31] LABS: Hematocrit (blood only) 37.8 % (42-52); Mean Corpuscular Hemoglobin 29.9 pg (25-34); Mean Corpuscular Hgb Conc 31.7 g/dL (32-36); Platelet Count 166 K/uL (130-400); RDW Coefficient of Variation 16.7 % (11.5-14.5); RDW Standard Deviation 57.4 fL (36.4-46.3); Red Blood Count 4.02 M/uL (4.7-6.1); White Blood Count 2.06 K/uL (4.8-10.8)
[2019-10-13 05:52] LABS: BUN Creatinine Ratio 12.4 (10-20); Calcium 8.2 mg/dl (8.5-10.1); Creatinine Clr Calc Pharmacy 169.2 ml/min; Est GFR (African American) 128.4; Est GFR (Non-African American) 110.8; Potassium 4.5 mmol/L (3.5-5.1)
[2019-10-13 06:10] LABS: ALC (manual) 0.14 K/uL (1.2-3.4); ANC (manual) 1.79 K/uL (1.4-6.5); Giant Platelets 1+; Lymphocytes # (manual) 0.14 K/uL (1.2-3.4); Monocytes # (manual) 0.13 K/uL (0.11-0.59); Monocytes % (manual) 6.1 %; Neutrophils # (manual) 1.79 K/uL (1.4-6.5); Neutrophils % (manual) 86.9 %; Target Cells 1+; Tear Drop Cells 1+
[2019-10-13] MEDS: FLUTICASONE/VILANTEROL 100/25MCG 14 PUFFS/INHALER INH SCH (07:54)
[2019-10-13] MEDS: TAMSULOSIN HCL 0.4 MG CAP PO SCH (07:55)
[2019-10-13] MEDS: predniSONE 5 MG TAB PO SCH (07:56)
[2019-10-13] MEDS: PANTOprazole 40 MG TAB PO SCH (07:56)
[2019-10-13] MEDS: DIGOXIN 0.125 MG TAB PO SCH (07:56)
[2019-10-13] MEDS: ZINC SULFATE 220 MG CAPSULE PO SCH ×2 (07:57→19:37)
[2019-10-13] MEDS: POTASSIUM CHLORIDE 20 MEQ TABCR PO SCH ×2 (07:57→19:38)
[2019-10-13] MEDS: FERROUS SULFATE 325 MG TAB PO SCH (07:57)
[2019-10-13] MEDS: FUROSEMIDE 20 MG TAB PO SCH (07:58)
[2019-10-13] MEDS: ASPIRIN 81 MG CHEW PO SCH (07:58)
--- NOTE | 2019-10-13 08:00 | Pulmonology Progress Note ---
Date of Service October 13, 2019 Assessment & Plan (1) COVID-19: Impression: 48-year-old male with sarcoid, secondary pulmonary hypertension, and chronic hypoxemic respiratory failure admitted now with coronavirus infection and associated pneumonia. He continues to show clinical improvement Recommendation: 1. Acute on chronic hypoxemic respiratory failure. Oxygen requirement appears to be back to baseline. Continue noninvasive positive pressure ventilation at night at home settings as well as oxygen during the day titrated to keep saturations at or above 88%. 2. Coronavirus infection: Continue supportive care. The patient appears to be improving significantly. 3. History of sarcoid: Maintained in the outpatient setting on methotrexate and prednisone. Back on prednisone at 5 mg daily. Would defer on methotrexate for now. Can continue inhalers. Patient appears significantly better at this point time. He may be approaching his baseline status and may be eligible to return home. Continue isolation protocols per [facility] and CDC guidelines. Will sign off at this point time. Feel free to contact us if we can be of additional assistance. (2) Acute respiratory failure with hypoxemia: Admission and Anticipated Discharge Date Admission Date: October 08, 2019 Subjective Chart reviewed. No overnight issues noted. Vital signs are improving. Review of Systems Review of Systems: Refer to hospitalist H&P Physical Exam Physical Exam: Exam deferred due to coronavirus restriction. Per [facility] policy, please refer to physical exam contacted by hospitalist from today Results & Data Results & Data ([facility]) Vital Signs (Past 12 Hours) Vital Signs Temp Pulse Pulse Resp BP Pulse Ox 10/13/19 07:51 37.0 C 83 18 96/61 L 92 10/13/19 07:22 86 28 H 95 10/13/19 03:54 77 18 95 10/12/19 23:59 80 10/12/19 22:47 70 20 98 10/12/19 20:30 37.0 C 87 20 91/63 L 95 PG Care Time/CCT Total # of Minutes Spent Total Time Spent with Patient: Total time spent is greater than 50% in coordination of care (as documented) at patient's floor/unit and/or counseling patient: Coding Level of Care Code 42458 Subseq Hosp Care Lvl 1 Diagnoses COVID-19 U07.1 Acute respiratory failure with hypoxemia J96.01
[2019-10-13] MEDS: INSULIN ASPART 100 UNITS/ML 3 ML PEN SC SCH ×4 (08:01→20:02)
[2019-10-13] MEDS: ALBUTEROL HFA 8 GM INHALER INH PRN (13:59)
[2019-10-13] MEDS: IPRATROPIUM BROMIDE HFA INHALER INH PRN (14:00)
[2019-10-13] MEDS: LORazepam 0.5 MG TAB PO PRN ×2 (17:18→23:02)
--- NOTE | 2019-10-13 19:26 | Hospitalist Progress Note ---
Date of Service October 13, 2019 Assessment & Plan (1) Acute respiratory failure with hypoxemia: Pulmonary sarcoid patient on chronic oxygen supplementation who has secondary pulmonary hypertension and associated right heart failure infected with COVID-19. Continues to do well clinically. Cont Rocephin (2) COVID-19: Rocephin. Currently declining doxycycline 2/2 GI side effects, and azithromycin not recommended. Will continue to avoid both of these. (3) Diarrhea: Persistent but improved, negative for infection. Imodium offered but pt declined today. (4) Pulmonary sarcoidosis: chronic, on methotrexate which has been held. Cont pred 5 daily per home regimen. (5) Depression: Cont celexa per home medications. Some additional anxiety reported. Lorazepam PRN (6) ANGELES (obstructive sleep apnea): CPAP when sleeping (7) Pulmonary HTN: chronic, on home oxygen support. Thought secondary to sarcoid. Cont plan per pulm (8) HTN (hypertension): Low normal, holding Losartan at this time. (9) Chronic respiratory failure: Known to be oxygen dependent on 4L via nasal canula at baseline. Currently oxygenating 95% on 6LPM (10) Right-sided heart failure: Breathing has improved. Lasix 20mg daily (11) DMII (diabetes mellitus, type 2): Controlled on insulin correction factor with carb coverage. (12) DVT prophylaxis: Lovenox Full Code Dispo-uncertain at this time but is improving. Hopeful to send home once cody nued clinical improvement is demonstrated. Coral Null DO [facility] Hospitalist Admission and Anticipated Discharge Date Admission Date: October 08, 2019 Subjective states "mikey been better" feels breathing is better this afternoon denies fevers or chills improvement in stool consistency still toelrating PO reports insomnia dealing with bereavement from loss of mother last week. Review of Systems Review of Systems: All systems reviewed & are unremarkable except as noted in Subjective Physical Exam Physical Exam: CONSTITUTIONAL: obese, vitals as above, generally well- appearing EYES: pupils are equal and round bilaterally, normal conjunctivae, no scleral icterus ENT: external ear and nose normal, mucous membranes are moist. NECK: trachea midline RESPIRATORY: Clear to auscultation, good air movement and no increased work of breathing. On baseline supplemental oxygen with intermittent BIPAP while sleeping. CARDIOVASCULAR: regular rate and rhythm, S1 and 2 heard without murmurs, gallops or rubs, no JVD, no peripheral edema GASTROINTESTINAL: soft, protuberant, nontender, no guarding MUSCULOSKELETAL: strength 5/5 throughout, head is normocephalic and atraumatic SKIN: warm and dry NEUROLOGIC: CN 2-12 grossly intact, no sensory deficit, normal cognition, normal speech, no gross focal deficits. PSYCHIATRIC: alert cooperative and oriented Results & Data Results & Data ([facility]) Vital Signs (Past 12 Hours) Vital Signs Temp Pulse Pulse Resp BP Pulse Ox 10/13/19 17:14 36.7 C 103 H 18 119/76 10/13/19 14:00 95 H 20 93 10/13/19 12:00 36.8 C 84 20 132/75 10/13/19 08:00 88 10/13/19 07:56 83 10/13/19 07:51 37.0 C 83 18 96/61 L 92 Laboratory Results Short CBC 10/13/19 Range/Units 05:09 WBC 2.06 L (4.8-10.8) K/uL Hgb 12.0 L (14.0-18.0) g/dL Hct 37.8 L (42-52) % Plt Count 166 (130-400) K/uL [facility] 10/13/19 05:09 Sodium 137 Potassium 4.5 D Chloride 103 Carbon Dioxide 30 BUN 9 Creatinine 0.70 Glucose 79 Calcium 8.2 L Medications Administered Short CBC 10/13/19 Range/Units 05:09 WBC 2.06 L (4.8-10.8) K/uL Hgb 12.0 L (14.0-18.0) g/dL Hct 37.8 L (42-52) % Plt Count 166 (130-400) K/uL [facility] 10/13/19 05:09 Sodium 137 Potassium 4.5 D Chloride 103 Carbon Dioxide 30 BUN 9 Creatinine 0.70 Glucose 79 Calcium 8.2 L
[2019-10-13] MEDS: cefTRIAXone SODIUM 2,000 MG in DEXTROSE 5% 50 ML IV SCH (19:36)
[2019-10-13] MEDS: ENOXAPARIN INJ 40 MG/0.4 ML SYR SQ SCH (19:38)
[2019-10-13] MEDS ORDERED: XOPENEX/ATROVENT 1.25mg/0.5MG NEB COMBO NEB PRN (22:52)
[2019-10-13] MEDS ORDERED: IPRATROPIUM BROMIDE NEB SOLN 0.02% 2.5 ML VIAL INH PRN (23:00)
[2019-10-13] MEDS ORDERED: LEVALBUTEROL 1.25MG/0.5ML NEB INH PRN (23:00)
[2019-10-13] MEDS ORDERED: LORazepam 0.5 MG TAB ONE (23:00)
[2019-10-14] MEDS: ACETAMINOPHEN 325 MG TAB PO PRN ×2 (00:03→20:45)
[2019-10-14 01:08] LABS: Base Excess ABG 1.9 mEq/L (-9-1.8); HCO3 ABG 26 mmol/L (19-24); PCO2 ABG 39 mmHg (35-46); PO2 ABG 63 mmHg (80-95); pH ABG 7.44 (7.35-7.45)
[2019-10-14] MEDS ORDERED: TRAMADOL HCL 50 MG TABLET PO PRN (01:11)
[2019-10-14 01:13] LABS: Allen Test POS (Pos)
--- NOTE | 2019-10-14 01:13 | Communication Note ---
Date of Service: October 14, 2019
[2019-10-14] MEDS ORDERED: methylPREDNISolone 20 MG in SYRINGE 0 ML IV ONE (01:15)
[2019-10-14] MEDS ORDERED: FUROSEMIDE 40 MG in SYRINGE 0 ML IV ONE ×2 (01:15→08:45)
[2019-10-14] MEDS ORDERED: DIGOXIN 500 MCG/2 ML AMP IV ONE (01:22)
[2019-10-14 01:24] LABS: Hemoglobin 13.5 g/dL (14.0-18.0); Mean Corpuscular Hgb Conc 32.9 g/dL (32-36); Mean Platelet Volume 8.8 fL (7.4-10.4); Platelet Count 227 K/uL (130-400); RDW Coefficient of Variation 16.7 % (11.5-14.5); RDW Standard Deviation 56.9 fL (36.4-46.3); Red Blood Count 4.36 M/uL (4.7-6.1); White Blood Count 4.59 K/uL (4.8-10.8)
[2019-10-14] MEDS ORDERED: DIGOXIN 250 MCG in SYRINGE 9 ML IV ONE (01:30)
[2019-10-14] MEDS ORDERED: MAGNESIUM SULFATE / D5W 1 GM/100 ML BAG IV ONE (01:30)
[2019-10-14 01:31] LABS: Partial Thromboplastin Ratio 1.3; Partial Thromboplastin Time 37.3 Seconds (21.0-31.0)
[2019-10-14 01:37] LABS: BUN Creatinine Ratio 9.7 (10-20); Calcium 8.6 mg/dl (8.5-10.1); Creatinine Clr Calc Pharmacy 162.3 ml/min; Est GFR (African American) 126.2; Est GFR (Non-African American) 108.9; Potassium 4.8 mmol/L (3.5-5.1)
[2019-10-14 01:43] LABS: Basophils # (auto) 0.01 K/uL (0-0.2); Basophils % (auto) 0.2 %; Eosinophils # (auto) 0.05 K/uL (0-0.5); Eosinophils % (auto) 1.1 %; Immature Granulocytes # (auto) 0.03 K/uL (0.00-0.02); Immature Granulocytes % (auto) 0.7 %; Lymphocytes # (auto) 0.37 K/uL (1.2-3.4); Lymphocytes % (auto) 8.1 %; Monocytes # (auto) 0.31 K/uL (0.11-0.59); Monocytes % (auto) 6.8 %; Neutrophils # (auto) 3.82 K/uL (1.4-6.5); Neutrophils % (auto) 83.1 %
[2019-10-14] MEDS: ALBUTEROL HFA 8 GM INHALER INH PRN (07:47)
[2019-10-14] MEDS: IPRATROPIUM BROMIDE HFA INHALER INH PRN (07:48)
[2019-10-14] MEDS ORDERED: predniSONE 5 MG TAB PO SCH (08:00)
[2019-10-14] MEDS: LORazepam 0.5 MG TAB PO PRN ×2 (08:08→20:45)
[2019-10-14] MEDS: POTASSIUM CHLORIDE 20 MEQ TABCR PO SCH ×2 (08:09→20:44)
[2019-10-14] MEDS: ASPIRIN 81 MG CHEW PO SCH (08:09)
[2019-10-14] MEDS: FERROUS SULFATE 325 MG TAB PO SCH (08:10)
[2019-10-14] MEDS: TAMSULOSIN HCL 0.4 MG CAP PO SCH (08:10)
[2019-10-14] MEDS: FLUTICASONE/VILANTEROL 100/25MCG 14 PUFFS/INHALER INH SCH (08:11)
[2019-10-14] MEDS: PANTOprazole 40 MG TAB PO SCH (08:11)
[2019-10-14] MEDS: DIGOXIN 0.125 MG TAB PO SCH (08:11)
--- NOTE | 2019-10-14 08:11 | XRay Report ---
XR chest 1V portable CLINICAL HISTORY: Shortness of breath. COMPARISON STUDY: Chest CT and Chest radiograph October 16, 2019. FINDINGS: Bilateral airspace opacities and interstitial thickening are noted. Interstitial thickening has slightly decreased since prior exam. Right basilar opacity has increased. This may reflect a ple ural effusion. There is no pneumothorax. Cardiomediastinal silhouette is stable. IMPRESSION: 1. Interstitial thickening and bilateral opacities, either unchanged or slightly improved since prior exam. The findings may reflect an infectious process or pulmonary edema superimposed upon interstiti al lung disease or a chronic granulomatous disease. 2. Increase in a round right basilar opacity which may reflect a pleural effusion. Radiographic follo w-up to ensure resolution is recommended. ACT 112: Negative or not required by law. Electronically signed by: Matthew Crook M.D. 10/14/2019 8:09 AM
[2019-10-14] MEDS: ZINC SULFATE 220 MG CAPSULE PO SCH ×2 (08:12→20:44)
[2019-10-14] MEDS: INSULIN ASPART 100 UNITS/ML 3 ML PEN SC SCH ×2 (08:15→16:19)
--- NOTE | 2019-10-14 10:14 | Pulmonology Progress Note ---
Date of Service October 14, 2019 Assessment & Plan (1) COVID-19: (2) Acute respiratory failure with hypoxemia: Impression: 48-year-old male with significant pulmonary history including parenchymal lung disease due to sarcoidosis with calcified mediastinal and hilar lymph nodes, secondary pulmonary hypertension with associated right-sided heart failure, and chronic hypercarbic and hypoxemic respiratory failure admitted with novel coronavirus infection. Recommendations: 1. Coronavirus pneumonia: Would continue supportive care at this point time. Can continue with inhaled corticosteroids. He does not appear overtly bronchospastic currently avoid nebulizers. Would not use high-dose systemic steroids at this point time unless the patient becomes overtly bronchospastic. Completing a course of antibiotics for superimposed infection as well. 2. Hypoxemic/hypercarbic respiratory failure: Continue supplemental oxygen titrated to keep saturations at or above 90%. Patient's x-ray now appears to be volume overloaded. Recommend discontinuing torsemide and start on IV Lasix. If needed could add metolazone. Close attention to serum creatinine is needed. Would continue CPAP or BiPAP as needed. Follow-up chest x-ray in the morning. 3. Secondary pulmonary hypertension: Patient likely has pulmonary hypertension related to underlying sarcoid. No comment on diastolic filling parameters or EDP. Pulmonary venoocclusive disease is possible given the compression of the calcified lymph nodes, the pulmonary veins are quite prominent on his CT scan. Would continue diuretics at this point in time, added Lasix 20 mg daily. Close attention to serum creatinine given his underlying kidney disease is recommended. Potassium repletion per primary 4. Advanced pulmonary sarcoid: The patient has evidence of mediastinal and hilar calcified lymph nodes as well as parenchymal lung disease. Holding methotrexate for now. Continuing his home prednisone dose of 5 mg daily. Lory nue his Breo. As needed albuterol also reasonable. 5. Disposition: Continue to monitor at this point in time. I think the patient can continue to be monitored here. If he fails to respond with aggressive diuretics, may require higher level of care Discussed with hospitalist service. We will continue to follow Admission and Anticipated Discharge Date Admission Date: October 08, 2019 Subjective Patient with increasing oxygen requirement. Chest x-ray today demonstrates bi lateral pulmonary infiltrates with pleural effusions. He is not coughing or expectorating phlegm. Review of Systems Review of Systems: Refer to hospitalist note Physical Exam Physical Exam: Exam deferred due to coronavirus restrictions and efforts to conserve PPE per [facility] protocol. Please refer to hospitalist exam for today Results & Data Results & Data ([facility]) Vital Signs (Past 12 Hours) Vital Signs Temp Pulse Pulse Pulse Resp BP Pulse Ox 10/14/19 08:11 111 H 10/14/19 08:01 36.7 C 92 H 20 136/76 95 10/14/19 07:50 102 H 18 941 H 10/14/19 07:28 91 H 22 95 10/14/19 04:13 37.5 C 96 H 22 110/78 94 10/14/19 04:03 100 H 24 93 10/14/19 01:32 119 H 10/13/19 23:59 109 H 10/13/19 23:36 114 H 29 H 93 10/13/19 23:24 16 112 H 10/13/19 23:16 37.1 C 110 H 22 116/72 97 Laboratory Results 10/14/19 01:04 10/14/19 01:04 Diagnostic Findings Chest x-ray 10/14/2019 was independently reviewed. Progressive bilateral p ulmonary infiltrates with small bilateral pleural effusions are noted. PG Care Time/CCT Total # of Minutes Spent Total Time Spent with Patient: Total time spent is greater than 50% in coordination of care (as documented) at patient's floor/unit and/or counseling patient: Coding Level of Care Code 25422 Subseq Hosp Care Lvl 3 Diagnoses COVID-19 U07.1 Acute respiratory failure with hypoxemia J96.01 Time Spent (min) 4
--- NOTE | 2019-10-14 11:31 | Hospitalist Progress Note ---
Date of Service October 14, 2019 Assessment & Plan (1) Acute respiratory failure with hypoxemia: Pulmonary sarcoid patient on chronic oxygen supplementation who has secondary pulmonary hypertension and associated right heart failure infected with COVID-19. Some worsening hypoxia overnight related to fluid overload, which is being corrected with diuresis. He has responded well to this. Cont Rocephin and will plan to transfer to PO abx when improved. (2) Right-sided heart failure: acute decompensation of right sided heart failure with volume overload overnight. Improving with increased diuretics intravenously. Cont with this for now. (3) COVID-19: Rocephin. Currently declining doxycycline 2/2 GI side effects, and azithromycin not recommended. Will continue to avoid both of these. (4) Pulmonary sarcoidosis: chronic, on methotrexate which has been held. Cont pred 5 daily per home regimen. (5) Diarrhea: Persistent but improved, negative for infection. (6) Depression: Cont celexa per home medications. Some additional anxiety reported. Lorazepam PRN (7) ANGELES (obstructive sleep apnea): CPAP when sleeping (8) Pulmonary HTN: chronic, on home oxygen support. Thought secondary to sarcoid. Cont plan per pulm (9) HTN (hypertension): Low normal, holding Losartan at this time. (10) Chronic respiratory failure: Known to be oxygen dependent on 4L via nasal canula at baseline. Currently oxygenating 95% on 6LPM (11) DMII (diabetes mellitus, type 2): Normal glucose for several days despite readdition of prednisone to his regimen. Stopping fingersticks and no insulin coverage at this time. (12) DVT prophylaxis: Lovenox Full Code Dispo-cont PCU monitoring. Plan for home when clinically improved. Coral Null DO [facility] Hospitalist Admission and Anticipated Discharge Date Admission Date: October 08, 2019 Subjective increased work of breathing and vascular congestion on xray overnight. loose stools present but improved. denies fever or pain respiratory rate is currently 20 by my count. Some baseline conversational dyspnea is apparent but patient is not working to breathe. Review of Systems Review of Systems: All systems reviewed & are unremarkable except as noted in Subjective Physical Exam Physical Exam: CONSTITUTIONAL: obese, vitals as above, generally well- appearing EYES: pupils are equal and round bilaterally, normal conjunctivae, no scleral icterus ENT: external ear and nose normal, mucous membranes are moist. NECK: trachea midline RESPIRATORY: Crackles at bases bilaterally. On baseline supplemental oxygen with intermittent BIPAP while sleeping. CARDIOVASCULAR: regular rate and rhythm, S1 and 2 heard without murmurs, gallops or rubs, no JVD, no peripheral edema GASTROINTESTINAL: soft, protuberant, nontender, no guarding MUSCULOSKELETAL: strength 5/5 throughout, head is normocephalic and atraumatic SKIN: warm and dry NEUROLOGIC: CN 2-12 grossly intact, no sensory deficit, normal cognition, normal speech, no gross focal deficits. PSYCHIATRIC: alert cooperative and oriented Results & Data Results & Data ([facility]) Vital Signs (Past 12 Hours) Vital Signs Temp Pulse Pulse Pulse Resp BP Pulse Ox 10/14/19 08:11 111 H 10/14/19 08:01 36.7 C 92 H 20 136/76 95 10/14/19 07:50 102 H 18 94 10/14/19 07:28 91 H 22 95 10/14/19 04:13 37.5 C 96 H 22 110/78 94 10/14/19 04:03 100 H 24 93 10/14/19 01:32 119 H 10/13/19 23:59 109 H 10/13/19 23:36 114 H 29 H 93 Laboratory Results Short CBC 10/14/19 Range/Units 01:04 WBC 4.59 L (4.8-10.8) K/uL Hgb 13.5 L (14.0-18.0) g/dL Hct 41.0 L (42-52) % Plt Count 227 (130-400) K/uL BMP 10/14/19 01:04 Sodium 137 Potassium 4.8 Chloride 102 Carbon Dioxide 27 BUN 7 Creatinine 0.73 Glucose 96 Calcium 8.6 Diagnostic Findings XR chest 1V portable CLINICAL HISTORY: Shortness of breath. FINDINGS: Bilateral airspace opacities and interstitial thickening are noted. Interstitial thickening has slightly decreased since prior exam. Right basilar opacity has increased. This may reflect a pleural effusion. There is no pneumothorax. Cardiomediastinal silhouette is stable. IMPRESSION: 1. Interstitial thickening and bilateral opacities, either unchanged or slightly improved since prior exam. The findings may reflect an infectious process or pulmonary edema superimposed upon interstitial lung disease or a chronic gra nulomatous disease. 2. Increase in a round right basilar opacity which may reflect a pleural effusion. Radiographic follow-up to ensure resolution is recommended. Medications Administered Current Inpatient Medications Acetaminophen (Tylenol) 650 mg PO Q4H PRN PRN Reason: Pain or Fever Stop: 11/07/19 16:27 Last Admin: 10/14/19 00:03 Dose: 650 mg Documented by: Al Hydrox/Mg Hydrox/Simethicone (Maalox) 15 ml PO Q4H PRN PRN Reason: Dyspepsia Stop: 11/07/19 16:27 Albuterol (Ventolin Hfa) 2 puffs INH Q6R PRN PRN Reason: Shortness Of Breath Or Wheezing Stop: 11/09/19 09:44 Last Admin: 10/14/19 07:47 Dose: 2 puffs Documented by: Amoxicillin/Clavulanate Potassium (Augmentin 875mg) 1 tab PO BID@0800,1600 YAA; Protocol Stop: 10/21/19 15:59 Aspirin (Aspirin Chew) 81 mg PO DAILY@0800 [facility] Stop: 11/09/19 07:59 Last Admin: 10/14/19 08:09 Dose: 81 mg Documented by: Dextrose (Dextrose 50%) 25 - 50 ml IV UD PRN; Protocol PRN Reason: Hypoglycemia Protocol Stop: 11/08/19 11:29 Digoxin (Lanoxin) 0.125 mg PO DAILY@0800 [facility] Stop: 11/08/19 07:59 Last Admin: 10/14/19 08:11 Dose: 0.125 mg Documented by: Enoxaparin Sodium (Lovenox) 40 mg SQ DAILY@2000 [facility] Stop: 11/08/19 19:59 Last Admin: 10/13/19 19:38 Dose: 40 mg Documented by: Ferrous Sulfate (Feosol) 325 mg PO QAM@0800 [facility] Stop: 11/09/19 07:59 Last Admin: 10/14/19 08:10 Dose: 325 mg Documented by: Fluticasone/Vilanterol (Breo Ellipta 100/25 Mcg Inh) 1 puffs INH DAILY@0800 [facility] Stop: 11/09/19 07:59 Last Admin: 10/14/19 08:11 Dose: 1 puffs Documented by: Folic Acid (Folvite) 1 mg PO DAILY@0800 [facility] Stop: 11/08/19 07:59 Last Admin: 10/10/19 08:17 Dose: 1 mg Documented by: Glucagon (Glucagen) 1 mg SQ UD PRN; Protocol PRN Reason: Hypoglycemia Protocol Stop: 11/08/19 11:29 Glucose (Glucose 40%) 15 - 30 gm PO UD PRN; Protocol PRN Reason: Hypoglycemia Protocol Stop: 11/08/19 11:29 Glucose (Dex4 Glucose) 4 - 8 tabs PO UD PRN; Protocol PRN Reason: Hypoglycemia Protocol Stop: 11/08/19 11:29 Promethazine HCl 12.5 mg/ (Sodium Chloride) 50.5 mls @ 202 mls/hr IV Q6H PRN PRN Reason: Nausea And Vomiting Stop: 11/08/19 11:50 Furosemide 40 mg/ Syringe 4 mls @ 4 mls/min IV BID@0800,1600 [facility] Stop: 11/13/19 15:59 Insulin Aspart (Novolog Flexpen) 0 units SC ACHS [facility] Stop: 11/08/19 11:29 Last Admin: 10/14/19 08:15 Dose: Not Given Documented by: Ipratropium Comfrey (Atrovent Hfa) 2 puffs INH Q6R PRN PRN Reason: SOB/WHEEZING Stop: 11/08/19 12:14 Last Admin: 10/14/19 07:48 Dose: 2 puffs Documented by: Ipratropium Comfrey (Atrovent 0.02% 0.5mg/2.5ml) 0.5 mg INH Q4H PRN PRN Reason: sob/wheezing Stop: 11/12/19 22:59 Last Admin: 10/13/19 23:23 Dose: 0.5 mg Documented by: Levalbuterol HCl (Xopenex 1.25mg/0.5ml Neb) 1.25 mg INH Q4H PRN PRN Reason: sob/wheezing Stop: 11/12/19 22:59 Last Admin: 10/13/19 23:23 Dose: 1.25 mg Documented by: Lorazepam (Ativan) 0.5 mg PO QID PRN PRN Reason: Anxiety Stop: 11/09/19 16:14 Last Admin: 10/14/19 08:08 Dose: 0.5 mg Documented by: Losartan Potassium (Cozaar) 25 mg PO DAILY@0800 [facility] Stop: 11/08/19 07:59 Last Admin: 10/09/19 08:55 Dose: 25 mg Documented by: Magnesium Hydroxide (Milk Of Magnesia) 30 ml PO Q12H PRN PRN Reason: Constipation Stop: 11/07/19 16:27 Miscellaneous (Carbohydrates For Hypoglycemia) 15 - 30 gm PO UD PRN PRN Reason: Hypoglycemia Treatment Stop: 11/08/19 11:29 Nitroglycerin (Nitrostat) 0.4 mg SL UD PRN PRN Reason: Chest Pain Stop: 11/07/19 16:27 Pantoprazole Sodium (Protonix) 40 mg PO QAM@0800 [facility] Stop: 11/08/19 07:59 Last Admin: 10/14/19 08:11 Dose: 40 mg Documented by: Polyethylene Glycol (Miralax Powder Packet) 17 gm PO DAILY PRN PRN Reason: Constipation Stop: 11/07/19 16:27 Potassium Chloride (Klor-Con M20) 20 meq PO BID@799,1999 [facility] Stop: 11/07/19 19:59 Last Admin: 10/14/19 08:09 Dose: 20 meq Documented by: Prednisone (Prednisone) 5 mg PO DAILY@0800 [facility] Stop: 11/14/19 07:59 Tamsulosin HCl (Flomax) 0.4 mg PO DAILY@0800 [facility] Stop: 11/08/19 07:59 Last Admin: 10/14/19 08:10 Dose: 0.4 mg Documented by: Tramadol HCl (Ultram) 25 mg PO Q4H PRN PRN Reason: Pain Stop: 11/13/19 01:10 Last Admin: 10/14/19 01:36 Dose: 25 mg Documented by: Zinc Sulfate (Zinc Sulfate) 220 mg PO BID@ [facility] Stop: 11/08/19 11:59 Last Admin: 10/14/19 08:12 Dose: 220 mg Documented by:
[2019-10-14] MEDS ORDERED: FUROSEMIDE 40 MG in SYRINGE 0 ML IV SCH (16:00)
[2019-10-14] MEDS ORDERED: TORSEMIDE 10 MG TAB PO SCH ×2 (16:00)
[2019-10-14] MEDS: AMOXICILLIN/CLAVULANATE 875 MG TAB PO SCH (16:46)
[2019-10-14] MEDS: ENOXAPARIN INJ 40 MG/0.4 ML SYR SQ SCH (20:43)
[2019-10-15] MEDS ORDERED: LORazepam 0.5 MG TAB PO STA (01:46)
[2019-10-15] MEDS ORDERED: METOPROLOL TARTRATE 1 MG/ML VIAL IV STA ×2 (03:50→07:42)
[2019-10-15] MEDS ORDERED: ALBUMIN 25% 50 ML IV ONE (03:51)
[2019-10-15] MEDS ORDERED: DIGOXIN 250 MCG in SYRINGE 9 ML IV ONE (04:00)
[2019-10-15] MEDS ORDERED: FUROSEMIDE 40 MG in SYRINGE 0 ML IV SCH (04:00)
[2019-10-15] MEDS ORDERED: MAGNESIUM SULFATE / D5W 1 GM/100 ML BAG IV ONE (04:00)
--- NOTE | 2019-10-15 04:19 | Communication Note ---
Date of Service: October 15, 2019 Made aware by RN of worsening respiratory distress around 3:30 AM. Patient refused BiPAP last night RR 30s, cardiac rate 140-150s as per RN. Patient asking for anxiety medication. Patient denies chest pain. Cough the same as per patient. O2 sats currently 88 on BiPAP as per RN. PPE : Anxious, obese, respiratory distress, BiPAP in place Decreased breath sounds, occasional expiratory wheezes Tachycardic CXR as per my interpretation : Pulmonary congestion decreased from 5/10 AP Worsening respiratory failure BiPAP noncompliance Known history of pulmonary hypertension COVID-19 pneumonia Pulmonary congestion Tachycardia secondary to above Continue BiPAP (Patient counseled about need to comply with BiPAP.) Check ABG, check electrolytes, dig level Lasix albumin 1 dose now Solu-Medrol 1 dose for bronchospasm given inability to render neb treatment given severe tachycardia Check EKG Re: Tachycardia Digoxin, Lopressor for tachycardia May need endotracheal intubation to facilitate mechanical ventilation if without improvement after above intervention. ADDENDUM : (705AM) Made aware by RN of critical digoxin level of 6.85. Dig level drawn at time of digoxin administration as per RN. Patient slightly better as per RN. Repeat dig level. Hold digoxin Rx for now Will relay developments to AM provider.
[2019-10-15] MEDS ORDERED: methylPREDNISolone 125 MG/2 ML VIAL IV ONE (04:30)
[2019-10-15] MEDS ORDERED: methylPREDNISolone 20 MG in SYRINGE 0 ML IV ONE (04:30)
[2019-10-15 04:37] LABS: Basophils # (auto) 0.01 K/uL (0-0.2); Basophils % (auto) 0.2 %; Eosinophils # (auto) 0.03 K/uL (0-0.5); Eosinophils % (auto) 0.6 %; Hematocrit (blood only) 42.6 % (42-52); Immature Granulocytes # (auto) 0.02 K/uL (0.00-0.02); Immature Granulocytes % (auto) 0.4 %; Lymphocytes # (auto) 0.44 K/uL (1.2-3.4); Lymphocytes % (auto) 8.4 %; Mean Corpuscular Hemoglobin 30.8 pg (25-34); Mean Corpuscular Hgb Conc 32.9 g/dL (32-36); Mean Corpuscular Volume 93.8 fL (80-100); Mean Platelet Volume 9.1 fL (7.4-10.4); Monocytes # (auto) 0.29 K/uL (0.11-0.59); Monocytes % (auto) 5.5 %; Neutrophils # (auto) 4.46 K/uL (1.4-6.5); Neutrophils % (auto) 84.9 %; Platelet Count 287 K/uL (130-400); RDW Coefficient of Variation 16.8 % (11.5-14.5); RDW Standard Deviation 57.7 fL (36.4-46.3); Red Blood Count 4.54 M/uL (4.7-6.1); White Blood Count 5.25 K/uL (4.8-10.8)
[2019-10-15 04:39] LABS: Base Excess ABG 3.6 mEq/L (-9-1.8); HCO3 ABG 29 mmol/L (19-24); Oxygen Saturation ABG 96.6 % (90-95); PCO2 ABG 46 mmHg (35-46); PO2 ABG 85 mmHg (80-95); pH ABG 7.42 (7.35-7.45)
[2019-10-15 04:43] LABS: Allen Test POS (Pos)
[2019-10-15 04:46] LABS: Partial Thromboplastin Ratio 1.2; Partial Thromboplastin Time 33.2 Seconds (21.0-31.0)
[2019-10-15 04:54] LABS: BUN Creatinine Ratio 14.6 (10-20); Calcium 8.1 mg/dl (8.5-10.1); Creatinine Clr Calc Pharmacy 161.7 ml/min; Est GFR (African American) 125.5; Est GFR (Non-African American) 108.3; Magnesium 1.9 mg/dl (1.8-2.4); Potassium 4.5 mmol/L (3.5-5.1)
[2019-10-15 05:50] LABS: Albumin Level 2.6 gm/dl (3.4-5.0)
--- NOTE | 2019-10-15 07:50 | XRay Report ---
XR chest 1V portable CLINICAL HISTORY: 48 years-old Male presenting with sob. TECHNIQUE: Portable upright AP view of the chest was obtained. COMPARISON: . FINDINGS: Atherosclerosis of the aortic arch. Cardiac silhouette enlarged. Pulmonary vascular prominence. Sever e diffuse mid to lower lung predominance linear and patchy dense opacities. Slight interval decrease in density of the upper lungs. Pleural thickening or loculated pleural effusion bilaterally along the mid to upper lungs. No pneumothorax. Poorly aerated lung bases. IMPRESSION: 1. Severe bilateral mid to basilar predominant lung infiltrates grossly stable from prior exam. 2. Volume overload remains present though there decreasing superimposed pulmonary edema evident. 3. Underlying pleural thickening or loculated pleural effusions not excluded. ACT 112: Negative or not required by law. Electronically signed by: Dc Grimes M.D. 10/15/2019 7:49 AM
[2019-10-15] MEDS ORDERED: predniSONE 5 MG TAB PO SCH (08:00)
[2019-10-15] MEDS ORDERED: FUROSEMIDE 40 MG/4 ML VIAL IV ONE (10:12)
[2019-10-15] MEDS: FUROSEMIDE 60 MG in SYRINGE 0 ML IV SCH ×2 (10:20→19:11)
[2019-10-15] MEDS: ASPIRIN 81 MG CHEW PO SCH (10:37)
[2019-10-15] MEDS: TAMSULOSIN HCL 0.4 MG CAP PO SCH (10:37)
[2019-10-15] MEDS: FERROUS SULFATE 325 MG TAB PO SCH (10:37)
--- NOTE | 2019-10-15 10:38 | Pulmonology Progress Note ---
Date of Service October 15, 2019 Assessment & Plan (1) COVID-19: Impression: 48-year-old male with significant pulmonary history including parenchymal lung disease due to sarcoidosis with calcified mediastinal and hilar lymph nodes, secondary pulmonary hypertension with associated right-sided heart failure, and chronic hypercarbic and hypoxemic respiratory failure admitted with novel coronavirus infection. --Acute on chronic hypoxic hypercapnic respiratory failure Multifactorial Secondary to Covid-19 pneumonia Patient also has has right-sided heart failure type III secondary to advanced sarcoidosis--> on Lasix Has been on BiPAP nightly and PRN shortness of breath Keep O2 saturation between 90 to 92% --Covid-19 pneumonia:-Patient has inflammatory parameters of CRP, d-dimer very stable for the first 3 days after admission. Given the stability of inflammatory parameters I doubt this is worsening secondary to Covid-19 pneumonia but still cannot be ruled out. We will get a repeat CRP, d-dimer, ferritin and BNP to see if they are trending up --Stage IV pulmonary sarcoidosis Patient is on chronic methotrexate at home which has been on hold while he is being admitted. Prednisone has been restarted which he was taking at home 5 mg on a daily basis. Would continue with the same regimen right now. Patient did have a decrease blood pressure before but at the time of examination his systolic blood pressure was in the 120s. --Severe pulmonary hypertension type III RVSP: 50-60mm Hg Patient is on torsemide 80 mg twice daily at home Patient was on Lasix 20 mg daily. We will change Lasix to 60 mg every 8 hours with holding parameters of systolic blood pressure less than 95. Patient is preload dependent need to be very judicious with diuresis. In/out in the last 24 hours: -[id number] Insert Ragsdale and keep the patient negative balance. --Disposition Patient respiratory status has worsened compared to yesterday on talking with nurse and hospitalist. Overnight patient even had episodes of tachycardia. Patient was saying that he is feeling a lot of pressure when he is on BiPAP. When patient was put on BiPAP he was getting tidal volumes of 700-750ml. Went down on BiPAP to 20 and he was getting tidal volume of 500 mL. If he still complains of high pressures recommend going down on IPAP to 18 and EPAP to 12 to aim for tidal volume around 450 mL. A stat dose of 40 mg of Lasix was given on top of 20 mg that he received in the morning. We will put a Ragsdale catheter and see how the patient diurese. If there is no improvement in his respiratory status and half an hour to 45 minutes will intubate the patient. Given the initial stability of inflammatory parameters I doubt this is worsening secondary to Covid-19 pneumonia but still cannot be ruled out. Repeat inflammatory markers have been ordered. If the patient does not respond to diuretics given his underlying advanced alkalosis and pulmonary hypertension he might benefit from [facility] ECMO requiring higher level of care. Patient was made aware that given he has underlying advanced sarcoidosis and severe pulmonary hypertension he is at high risk even after being intubated. Case was discussed with Dr Null and nurse at bedside. Please note the above document was generated using voice recognition software. It may contain grammatical, syntax or spelling errors. (2) Acute respiratory failure with hypoxemia: Admission and Anticipated Discharge Date Admission Date: October 08, 2019 Subjective Patient seen and examined at bedside. In respiratory distress. Overnight patient used BiPAP but he states that the pressure in the BiPAP is too high and he gets uncomfortable while wearing BiPAP. Patient's BiPAP setting was 24/14. In the time of examination patient was saturating 92% on 10 L oxygen mask with respiratory rate of 32-34. Patient states he has been urinating well. On asking how his breathing he says '' he has been better'' Denies any diarrhea, no chest pain, no belly pain, no dizziness, no headache. Review of Systems Review of Systems: All systems reviewed & are unremarkable except as noted in HPI & below Physical Exam Physical Exam: Constitutional: In respiratory distress HEENT: EOMI, PERRLA Respiratory system: Decreased air entry bilaterally, positive crackles bilateral lower lobes, no wheeze, no rhonchi CVS: S1-S2 positive, no murmurs or gallops, accentuated P2 Abdomen: Soft, nontender, nondistended, positive bowel sounds x4 Extremities: +2 pulses bilaterally radialis/ dorsalis pedis, no cyanosis, +2 e lucius bilateral lower extremity Neuro: Awake alert oriented x3 Psych: Normal mood and affect G/U: No Ragsdale Skin: no rashes, warm and dry Lymphatic: no cervical or axillary lymphadenopathy Results & Data Results & Data ([facility]) Vital Signs (Past 12 Hours) Vital Signs Temp Pulse Pulse Resp BP BP Pulse Ox 10/15/19 10:30 99 H 29 H 96 10/15/19 10:20 111 H 31 H 10/15/19 10:10 112 H 34 H 10/15/19 10:00 38.0 C H 108 H 43 H 10/15/19 08:00 115 H 10/15/19 07:25 122 H 28 H 95 10/15/19 04:22 137 H 32 H 94 10/15/19 04:09 147 H 10/15/19 03:48 152 H 40 H 125/86 93 10/15/19 00:37 37 C 98 H 20 121/56 L 96 10/15/19 04:25 10/15/19 04:25 PG Care Time/CCT Total # of Minutes Spent Total Time Spent with Patient: Total time spent is greater than 50% in coord ination of care (as documented) at patient's floor/unit and/or counseling patient: Coding Level of Care Code 18369 Subseq Hosp Care Lvl 3 Diagnoses COVID-19 U07.1 Acute respiratory failure with hypoxemia J96.01
[2019-10-15] MEDS: AMOXICILLIN/CLAVULANATE 875 MG TAB PO SCH ×2 (10:39→19:11)
[2019-10-15] MEDS: PANTOprazole 40 MG TAB PO SCH (10:39)
[2019-10-15] MEDS: POTASSIUM CHLORIDE 20 MEQ TABCR PO SCH ×2 (10:40→20:43)
[2019-10-15] MEDS: FLUTICASONE/VILANTEROL 100/25MCG 14 PUFFS/INHALER INH SCH (10:40)
[2019-10-15] MEDS: ZINC SULFATE 220 MG CAPSULE PO SCH (10:40)
[2019-10-15 11:17] LABS: C Reactive Protein 11.4 mg/dl (0-0.29); Ferritin 835.7 ng/ml (8-388)
--- NOTE | 2019-10-15 11:22 | Hospitalist Progress Note ---
Date of Service October 15, 2019 Assessment & Plan (1) Acute respiratory failure with hypoxemia: Pulmonary sarcoid patient on chronic oxygen supplementation who has secondary pulmonary hypertension and associated right heart failure infected with COVID-19. Some worsening hypoxia overnight related to fluid overload, which is being corrected with diuresis. He has responded well to this. (2) Right-sided heart failure: acute decompensation of right sided heart failure with volume overload overnight. Improving with increased diuretics intravenously. Cont with this for now. Ragsdale in place. Discussed peripherally with cardiology who will be consulted. They recommended full dose Lovenox as he is high risk for decompensating if he gets a blood clot. (3) COVID-19: Cont supportive care. Entertained Plaquenil and convalescent plasma, but will not move forward with this now as not supported by pulmonology. Still investigational. (4) Pulmonary sarcoidosis: chronic, on methotrexate which has been held. Cont pred 5 daily per home regimen. (5) Diarrhea: Persistent negative for infection. Imodium PRN (6) Depression: Cont celexa per home medications. Some additional anxiety reported. Lorazepam PRN (7) ANGELES (obstructive sleep apnea): BIPAP when sleeping (8) Pulmonary HTN: chronic, on home oxygen support. Thought secondary to sarcoid. Cont plan per pulm (9) HTN (hypertension): At goall, holding Losartan at this time. (10) Chronic respiratory failure: Currently oxygenating 95% on 6LPM (11) DMII (diabetes mellitus, type 2): Normal glucose for several days despite readdition of prednisone to his regimen. Stopping fingersticks and no insulin coverage at this time. (12) DVT prophylaxis: Lovenox Full Code Dispo-cont PCU monitoring. Plan for home when clinically improved. Coral Null DO [facility] Hospitalist Admission and Anticipated Discharge Date Admission Date: October 08, 2019 Subjective decompensated overnight with worsened tachypnea, tachycardic, increased work of breathing, anxiousness and pulling at BIPAP. CXR appears more fluid overloaded this am despite multiple doses of IV Lasix yesterday. Pulm notified and increased Lasix dose and interval Ragsdale was placed Pt improved. Review of Systems Review of Systems: All systems reviewed & are unremarkable except as noted in Subjective Physical Exam Physical Exam: CONSTITUTIONAL: obese, vitals as above, generally well- appearing EYES: pupils are equal and round bilaterally, normal conjunctivae, no scleral icterus ENT: external ear and nose normal, mucous membranes are moist. NECK: trachea midline RESPIRATORY: crackles at bases present and rales present on the right side throughout. On baseline supplemental oxygen with intermittent BIPAP while sleeping. CARDIOVASCULAR: regular rate and rhythm, S1 and 2 heard without murmurs, gallops or rubs, no JVD, no peripheral edema GASTROINTESTINAL: soft, protuberant, nontender, no guarding MUSCULOSKELETAL: strength 5/5 throughout, head is normocephalic and atraumatic SKIN: warm and dry NEUROLOGIC: CN 2-12 grossly intact, no sensory deficit, normal cognition, normal speech, no gross focal deficits. PSYCHIATRIC: alert cooperative and oriented Results & Data Results & Data ([place]) Vital Signs (Past 12 Hours) Vital Signs Temp Pulse Pulse Resp BP BP Pulse Ox 10/15/19 10:30 99 H 29 H 96 10/15/19 10:20 111 H 31 H 10/15/19 10:10 112 H 34 H 10/15/19 10:00 38.0 C H 108 H 43 H 10/15/19 08:00 115 H 10/15/19 07:25 122 H 28 H 95 10/15/19 04:22 137 H 32 H 94 10/15/19 04:09 147 H 10/15/19 03:48 152 H 40 H 125/86 93 10/15/19 00:37 37 C 98 H 20 121/56 L 96 Laboratory Results Short CBC 10/15/19 Range/Units 04:25 WBC 5.25 (4.8-10.8) K/uL Hgb 14.0 (14.0-18.0) g/dL Hct 42.6 (42-52) % Plt Count 287 (130-400) K/uL BMP 10/15/19 04:25 Sodium 136 Potassium 4.5 Chloride 100 Carbon Dioxide 28 BUN 11 D Creatinine 0.74 Glucose 108 H Calcium 8.1 L Liver Function 10/15/19 Range/Units 04:25 Albumin 2.6 L (3.4-5.0) gm/dl
[2019-10-15] MEDS: predniSONE 5 MG TAB PO SCH (15:52)
[2019-10-15 17:54] LABS: BUN Creatinine Ratio 17.1 (10-20); Creatinine Clr Calc Pharmacy 163.9 ml/min; Est GFR (African American) 126.2; Est GFR (Non-African American) 108.9; Magnesium 2.4 mg/dl (1.8-2.4); Phosphorus 3.1 mg/dl (2.5-4.9); Potassium 4.6 mmol/L (3.5-5.1)
[2019-10-15] MEDS ORDERED: LOPERAMIDE HCL 2 MG CAP PO STA (20:35)
[2019-10-15] MEDS ORDERED: LOPERAMIDE HCL 2 MG CAP PO PRN (20:35)
[2019-10-15] MEDS: ENOXAPARIN INJ 40 MG/0.4 ML SYR SQ SCH (20:44)
[2019-10-15] MEDS ORDERED: ENOXAPARIN 1 MG/KG SQ SCH (22:15)
[2019-10-15] MEDS ORDERED: ENOXAPARIN 150 MG/ML SYR SQ SCH (22:30)
[2019-10-15] MEDS: ENOXAPARIN 150 MG/ML SYR SQ SCH (22:51)
[2019-10-16] MEDS: FUROSEMIDE 60 MG in SYRINGE 0 ML IV SCH ×2 (01:35→08:42)
[2019-10-16 05:40] LABS: Hemoglobin 13.9 g/dL (14.0-18.0); Mean Corpuscular Hemoglobin 30.2 pg (25-34); Mean Corpuscular Hgb Conc 31.6 g/dL (32-36); Mean Corpuscular Volume 95.4 fL (80-100); Mean Platelet Volume 9.5 fL (7.4-10.4); Platelet Count 285 K/uL (130-400); RDW Coefficient of Variation 17.1 % (11.5-14.5); RDW Standard Deviation 59.5 fL (36.4-46.3); Red Blood Count 4.61 M/uL (4.7-6.1); White Blood Count 3.94 K/uL (4.8-10.8)
[2019-10-16] MEDS: LORazepam 0.5 MG TAB PO PRN (06:09)
[2019-10-16 06:20] LABS: BUN Creatinine Ratio 17.4 (10-20); C Reactive Protein 14.3 mg/dl (0-0.29); Calcium 8.5 mg/dl (8.5-10.1); Creatinine Clr Calc Pharmacy 133.2 ml/min; Est GFR (African American) 117.5; Est GFR (Non-African American) 101.3; Magnesium 2.4 mg/dl (1.8-2.4); Potassium 4.2 mmol/L (3.5-5.1)
[2019-10-16 06:25] LABS: Ferritin 1130.8 ng/ml (8-388); Phosphorus 2.8 mg/dl (2.5-4.9)
[2019-10-16] MEDS ORDERED: FUROSEMIDE 20 MG TAB PO SCH (08:00)
[2019-10-16] MEDS ORDERED: ZINC SULFATE 220 MG CAPSULE PO SCH (08:00)
[2019-10-16] MEDS: AMOXICILLIN/CLAVULANATE 875 MG TAB PO SCH (08:39)
[2019-10-16] MEDS: PANTOprazole 40 MG TAB PO SCH (08:39)
[2019-10-16] MEDS: POTASSIUM CHLORIDE 20 MEQ TABCR PO SCH (08:39)
[2019-10-16] MEDS: TAMSULOSIN HCL 0.4 MG CAP PO SCH (08:39)
[2019-10-16] MEDS: ASPIRIN 81 MG CHEW PO SCH (08:39)
[2019-10-16] MEDS: predniSONE 5 MG TAB PO SCH (08:40)
[2019-10-16] MEDS: FLUTICASONE/VILANTEROL 100/25MCG 14 PUFFS/INHALER INH SCH (08:40)
[2019-10-16] MEDS: ENOXAPARIN 150 MG/ML SYR SQ SCH (08:42)
[2019-10-16] MEDS: ACETAMINOPHEN 325 MG TAB PO PRN (08:55)
--- NOTE | 2019-10-16 11:10 | Communication Note ---
Date of Service: October 16, 2019 TRANSFER SUMMARY: 48 yo M with h/o pulmonary sarcoid and ANGELES with secondary pulmonary hypertension and cor pulmonale on 4LPM at baseline, presented with worsening dyspnea. He was found to be COVID-[address] chest revealed stable emphysematous and chronic granulomatous change, superimposed diffuse bilateral parenchymal interstitial infiltrative change, mildly progressive bilateral pleural effusions with mild to moderate bibasilar atelectatic/consolidative change. He was placed on Rocephin and azithromycin, however, azithromycin was quickly changed to doxycycline 2/2 prolonged QTc. However, he was unable to tolerate doxycycline 2/2 gastrointestinal side effects so this was stopped and Rocephin was continued. He was given a full 7 day course of antibiotics. His methotrexate and prednisone 5mg daily were held in the setting of infection. Pulmonary medicine was consulted and with a borderline prolonged QTc, Plaquenil as an investigational therapy, was not recommended. Echocardiogram revealed normal LV wall thickness and function. Ejection fraction is 55-60%. A moderately dilated right ventricle with mild to moderately reduced right ventricular systolic function. Right ventricular systolic pressure was elevated at 50-60mm Hg. Hypokalemia was noted and his diuretics were decreased to furosemide 20mg daily. Home dose of diuretic was torsemide 80mg BID. He remained stable from a pulmonary perspective until 10/13 overnight. At this time he was more dyspneic and found to be volume overloaded. He was aggressively diuresed with intravenous furosemide and improved. He remained on 6-10 LPM supplemental oxygen rotated with intermittent BIPAP which he uses at home. Cardiology was consulted and recommended full dose Lovenox in the setting of high risk VTE. On the morning of 10/15, however, he became tachypneic and nervous off BIPAP and Cardiology and Pulmonary agreed he should be transferred to a higher level of care. Transfer was set up with Dr. Petty in ICU at [facility] and the patient was electively intubated at [facility]. Central line access was placed. Current Inpatient Medications Acetaminophen (Tylenol) 650 mg PO Q4H PRN PRN Reason: Pain or Fever Stop: 11/07/19 16:27 Last Admin: 10/16/19 08:55 Dose: 650 mg Documented by: Al Hydrox/Mg Hydrox/Simethicone (Maalox) 15 ml PO Q4H PRN PRN Reason: Dyspepsia Stop: 11/07/19 16:27 Albuterol (Ventolin Hfa) 2 puffs INH Q6R PRN PRN Reason: Shortness Of Breath Or Wheezing Stop: 11/09/19 09:44 Last Admin: 10/14/19 07:47 Dose: 2 puffs Documented by: Amoxicillin/Clavulanate Potassium (Augmentin 875mg) 1 tab PO BID@0800,1600 [facility]; Protocol Stop: 10/21/19 15:59 Last Admin: 10/16/19 08:39 Dose: 1 tab Documented by: Aspirin (Aspirin Chew) 81 mg PO DAILY@0800 [facility] Stop: 11/09/19 07:59 Last Admin: 10/16/19 08:39 Dose: 81 mg Documented by: Digoxin (Lanoxin) 0.125 mg PO DAILY@0800 [facility] Stop: 11/08/19 07:59 Last Admin: 10/14/19 08:11 Dose: 0.125 mg Documented by: Enoxaparin Sodium (Lovenox) 129 mg SQ Q12@0800,2000 [facility] Stop: 11/14/19 22:29 Last Admin: 10/16/19 08:42 Dose: 129 mg Documented by: Fluticasone/Vilanterol (Breo Ellipta 100/25 Mcg Inh) 1 puffs INH DAILY@0800 [facility] Stop: 11/09/19 07:59 Last Admin: 10/16/19 08:40 Dose: 1 puffs Documented by: Folic Acid (Folvite) 1 mg PO DAILY@0800 [facility] Stop: 11/08/19 07:59 Last Admin: 10/10/19 08:17 Dose: 1 mg Documented by: Promethazine HCl 12.5 mg/ (Sodium Chloride) 50.5 mls @ 202 mls/hr IV Q6H PRN PRN Reason: Nausea And Vomiting Stop: 11/08/19 11:50 Furosemide 60 mg/ Syringe 6 mls @ 4 mls/min IV Q12 [facility] Stop: 11/15/19 20:59 Ipratropium [place] (Atrovent Hfa) 2 puffs INH Q6R PRN PRN Reason: SOB/WHEEZING Stop: 11/08/19 12:14 Last Admin: 10/14/19 07:48 Dose: 2 puffs Documented by: Loperamide HCl (Imodium) 2 mg PO UD PRN PRN Reason: Diarrhea Stop: 11/14/19 20:34 Lorazepam (Ativan) 0.5 mg PO Q8H PRN PRN Reason: Anxiety Stop: 11/12/19 22:52 Last Admin: 10/16/19 06:09 Dose: 0.5 mg Documented by: Losartan Potassium (Cozaar) 25 mg PO DAILY@0800 [facility] Stop: 11/08/19 07:59 Last Admin: 10/09/19 08:55 Dose: 25 mg Documented by: Magnesium Hydroxide (Milk Of Magnesia) 30 ml PO Q12H PRN PRN Reason: Constipation Stop: 11/07/19 16:27 Nitroglycerin (Nitrostat) 0.4 mg SL UD PRN PRN Reason: Chest Pain Stop: 11/07/19 16:27 Pantoprazole Sodium (Protonix) 40 mg PO QAM@0800 [facility] Stop: 11/08/19 07:59 Last Admin: 10/16/19 08:39 Dose: 40 mg Documented by: Polyethylene Glycol (Miralax Powder Packet) 17 gm PO DAILY PRN PRN Reason: Constipation Stop: 11/07/19 16:27 Potassium Chloride (Klor-Con M20) 20 meq PO BID@0800,1999 [facility] Stop: 11/07/19 19:59 Last Admin: 10/16/19 08:39 Dose: 20 meq Documented by: Prednisone (Prednisone) 5 mg PO DAILY@0800 [facility] Stop: 11/15/19 07:59 Last Admin: 10/16/19 08:40 Dose: 5 mg Documented by: Tamsulosin HCl (Flomax) 0.4 mg PO DAILY@0800 [facility] Stop: 11/08/19 07:59 Last Admin: 10/16/19 08:39 Dose: 0.4 mg Documented by: Tramadol HCl (Ultram) 25 mg PO Q4H PRN PRN Reason: Pain Stop: 11/13/19 01:10 Last Admin: 10/14/19 01:36 Dose: 25 mg Documented by: Zinc Sulfate (Zinc Sulfate) 220 mg PO QD@08 [facility] Stop: 11/15/19 07:59 Last Admin: 10/16/19 08:40 Dose: 220 mg Documented by:
[2019-10-16] MEDS ORDERED: RAPID SEQUENCE INDUCTION BAG ONE (11:36)
--- NOTE | 2019-10-16 11:44 | Pulmonology Progress Note ---
Date of Service October 16, 2019 Assessment & Plan (1) COVID-19: Impression: 48-year-old male with significant pulmonary history including parenchymal lung disease due to sarcoidosis with calcified mediastinal and hilar lymph nodes, secondary pulmonary hypertension with associated right-sided heart failure, and chronic hypercarbic and hypoxemic respiratory failure admitted with novel coronavirus infection. --Acute on chronic hypoxic hypercapnic respiratory failure Multifactorial Secondary to Covid-19 pneumonia Patient also has has right-sided heart failure type III secondary to advanced sarcoidosis--> on Lasix Has been on BiPAP nightly and PRN shortness of breath Keep O2 saturation between 90 to 92% --Covid-19 pneumonia:-Patient has inflammatory parameters of CRP, d-dimer very stable for the first 3 days after admission. Given the stability of inflammatory parameters I doubt this is worsening secondary to Covid-19 pneumonia but still cannot be ruled out. Repeat repeat CRP, d-dimer were trending down on the latest labs done on 10/15/2019, BNP was still elevated. --Stage IV pulmonary sarcoidosis Patient is on chronic methotrexate at home which has been on hold while he is being admitted. Prednisone has been restarted which he was taking at home 5 mg on a daily basis. Would continue with the same regimen right now. --Severe pulmonary hypertension type III RVSP: 50-60mm Hg Patient is on torsemide 80 mg twice daily at home On Lasix 60 mg every 8 hours. Will change to 60 mg every 12 hours. Patient is preload dependent need to be very judicious with diuresis. In/out in the last 24 hours: -[id number] --Disposition Patient is still requiring continuous BiPAP and he gets short of breath whenever he is taken off BiPAP. His breathing on BiPAP around high teens to low 20s, off BiPAP he goes up to high 20s. Patient has diuresed well with 60 mg of Lasix every 8 hours. He is -3.5 L in the last 24 hours. His respiratory status is getting worse. Patient has been asking for anxiety pills but given his respiratory status I do not think it is feasible to give him any medication which can suppress his respiratory drive. I do not think Remdesevir will be of any benefit given the patient's inflammatory markers are already trending down since the time he was admitted to the hospital. I think his clinical deterioration is from his underlying cor pulmonale. Case was discussed with Dr. Tee who has been following the patient as an outpatient for his cor pulmonale. Given that his respiratory status is not improving even with significant diuresis the patient will benefit from being sent to a center where [facility] could be performed if there is any more clinical deterioration given his hx of cor Pulmonale. Transferring the patient to a higher care center would be the right thing to do. This was relayed to Dr Null. Please note the above document was generated using voice recognition software. It may contain grammatical, syntax or spelling errors. Admission and Anticipated Discharge Date Admission Date: October 08, 2019 Subjective Patient was not personally seen by me today. Physical Exam Physical Exam: Deferred today to limit contact and preserve PPE. Please look at Hospitalist Physical exam Results & Data Results & Data ([facility]) Vital Signs (Past 12 Hours) Vital Signs Temp Pulse Pulse Resp BP Pulse Ox 10/16/19 11:38 36.8 C 83 26 H 105/67 96 10/16/19 11:17 36.8 C 83 26 H 105/67 96 10/16/19 11:10 96 H 20 96 10/16/19 08:00 38.3 C H 92 H 28 H 121/68 92 10/16/19 07:45 100 H 21 87 L 10/16/19 04:35 104 H 22 96 10/16/19 04:03 37.0 C 80 16 112/70 92 10/16/19 02:38 73 16 94 10/16/19 00:00 36.7 C 78 20 109/69 98 10/16/19 04:43 10/16/19 04:43 PG Care Time/CCT Total # of Minutes Spent Total Time Spent with Patient: Total time spent is greater than 50% in coordination of care (as documented) at patient's floor/unit and/or counseling patient: Coding Level of Care Code 48561 Subseq Hosp Care Lvl 2 Diagnoses COVID-19 U07.1
[2019-10-16] MEDS ORDERED: PROPOFOL IV EMULSION 10 MG/ML 100 ML VIAL IV ONE (12:10)
[2019-10-16] MEDS ORDERED: STAT IV Infusion **Titration per Protocol STA (12:10)
[2019-10-16] MEDS ORDERED: propofoL 1,000 MG/100 ML VIAL IV SCH (12:15)
--- NOTE | 2019-10-16 12:29 | Discharge Summary ---
Date of Service October 16, 2019 Admission HPI Per Admitting Provider This is a 48 yo male with past medical hx of sarcoidosis of the lungs /chronic respiratory failure on 2 L 02 at home , chronic immunosuppresion on MTx and Chronic prednisone , CHF with diastolic heart failure /type 2 DM admitted with complain of fever , cough ,worsening of SOB started 4 days back pt reports he has been staying home for past several days due to COVID 19 viral stay at home orders/ had food delivered to him -and left outside his door denies of any sick contact , or contact with patient with COVID 19 positive or test result positive he started to experience chill and rigor on Tuesday morning , followed by generalized body ache , headache , symptoms continued to get worse in past 2 days , getting more short of breath with movement , in ER his temp was 38 /tachycardic HR 111 /tachypnic RR 26 , pt was hypoxic. 88 to 89% on his normal 2 L nasal cannula which is abnormal for him as he notes he is normally 94%. o2 increased to 4 L via nasal canula Admission Exam Per Admitting Provider Constitutional: WD/WN, vitals as above + acute distress (in mild respiratory distress ) Eyes: PERRL, conjunctivae normal, anicteric sclerae ENMT: external ear and nose normal, oropharynx normal Neck: trachea midline, no thyromegaly Respiratory: normal respiratory effort and + cough Auscultation: + crackles, + rales, + rhonchi and + wheezes Cardiovascular: Rate/Rhythm: + tachycardic Extremities: no edema Gastrointestinal (Abdomen): Percussion/Palpation: abdomen soft; abdomen nontender Musculoskeletal: Head/Neck/Chest: normocephalic and head atraumatic Extremities: + abnormal strength (generalized weakness ); + abnormal strength generalized weakness Skin: no rashes, warm and dry Neurologic: PERRL, EOMI, accommodation nl, no face palsy, no dysarthria Psychiatric: A+Ox3, euthymic affect Principal Diagnosis Acute hypoxic respiratory failure COVID-19 positive Acute right heart failure Pulmonary sarcoid ANGELES Pulmonary HTN at baseline with chronic oxygen requirement (base 4LPM) Obesity DMII Discharge Data Allergies Allergy/AdvReac Type Severity Reaction Status Date / Time doxycycline AdvReac Severe Vomiting Verified 10/09/19 13:47 Consultations 10/08/19 12:35 ED Decision to Admit Stat 10/09/19 11:49 Consult Pulmonology Routine 10/12/19 12:01 Consult Infectious Diseases Routine 10/15/19 18:05 Consult Cardiology Routine 10/16/19 11:56 Burn CD for patient Stat Ordered Studies 10/08/19 12:52 CT chest wo con Stat Hospital Course (1) Acute respiratory failure with hypoxemia: (2) Right-sided heart failure: (3) COVID-19: (4) Pulmonary sarcoidosis: (5) Diarrhea: (6) Depression: (7) ANGELES (obstructive sleep apnea): (8) Pulmonary HTN: 48 yo M with h/o pulmonary sarcoid and ANGELES with secondary pulmonary hypertension and cor pulmonale on 4LPM at baseline, presented with worsening dyspnea. He was found to be COVID-[address] chest revealed stable emphysematous and chronic granulomatous change, superimposed diffuse bilateral parenchymal interstitial infiltrative change, mildly progressive bilateral pleural effusions with mild to moderate bibasilar atelectatic/consolidative change. He was placed on Rocephin and azithromycin, however, azithromycin was quickly changed to doxycycline 2/2 prolonged QTc. However, he was unable to tolerate doxycycline 2/2 gastrointestinal side effects so this was stopped and Rocephin was continued. He was given a full 7 day course of antibiotics. His methotrexate and prednisone 5mg daily were held in the setting of infection. Prednisone was restarted on 10/11 as blood pressure was in the 90s and he started reporting concern in the way he was feeling. Pulmonary medicine was consulted and with a borderline prolonged QTc, Plaquenil as an investigational therapy, was not recommended. Echocardiogram revealed normal LV wall thickness and function. Ejection fraction is 55-60%. A moderately dilated right ventricle with mild to moderately reduced right ventricular systolic function. Right ventricular systolic pressure was elevated at 50-60mm Hg. Hypokalemia was noted and his diuretics were decreased to furosemide 20mg daily. Home dose of diuretic was torsemide 80mg BID. He remained stable from a pulmonary perspective until 10/13 overnight. At this time he was more dyspneic and found to be volume overloaded. He was aggressively diuresed with intravenous furosemide and improved. He remained on 6-10 LPM supplemental oxygen rotated with intermittent BIPAP which he uses at home. Cardiology was consulted and recommended full dose Lovenox in the setting of high risk VTE. On the morning of 10/15, however, he became tachypneic and nervous off BIPAP and Cardiology and Pulmonary agreed he should be transferred to a higher level of care. Transfer was set up with Dr. Petty in ICU at [facility] and the patient was electively intubated at [facility]. Central line access was placed. Total Time Total Time Spent Total Time Spent (In Minutes): 60 Total Time Includes: Examination of the Patient, Discharge Planning, Medication Reconciliation and Communication With Other Providers Discharge Plan Discharge Items Patient Disposition: Transfer Acute Care Hospital Reason For Visit: SOB/FEVER Discharge Diagnosis: Acute hypoxic respiratory failure COVID-19 positive Acute right heart failure Pulmonary sarcoid ANGELES Pulmonary HTN at baseline with chronic oxygen requirement (base 4LPM) Obesity DMII Condition on Discharge: Critical Activity: Resume your previous activity Non-emergency contact: Primary Care Provider Call non-emergency contact if: you have any medication questions, your symptoms worsen, your pain is not controlled, your pain is worsening, your pain is unusual for you, your pain is concerning for you and you have a fever Follow-up/Referrals: Andrzej Downing MD [Primary Care Provider] - Diet: Carb Consistent or DM2 and Low Sodium (2gm) Addtl Attending Provider Instructions: You are being transferred to [facility] for ICU care. Please follow-up with your primary care provider within one week of discharge from the hospital. It was a pleasure taking care of you! Please call if you have any questions or problems. You can reach a [facility] hospitalist on duty at [facility] 24 hours a day by calling [phone]. Take care of yourself. Coral Null, [place] Hospitalist Pending Studies at Discharge: No Stand-Alone Forms: My [facility] Skilled Items Patient informed of condition?: Yes DNR: No Discharge Level of Care: Other Communicable Disease: Yes Discharge Prognosis: Deteriorating Lines: Peripheral IV Urinary Catheter: Yes Medications and DC Order Prescriptions: Continued torsemide 20 mg tablet 80 mg PO BID RF: 0 prednisone 5 mg tablet 5 mg PO DAILY RF: 0 citalopram 20 mg tablet 20 mg PO DAILY RF: 0 potassium chloride 20 mEq tablet,ER particles/crystals 20 meq PO BID RF: 0 methotrexate sodium 2.5 mg tablet 2.5 mg PO DIRECTED RF: 0 tamsulosin 0.4 mg capsule 0.4 mg PO DAILY RF: 0 losartan 25 mg tablet 25 mg PO DAILY RF: 0 omeprazole 20 mg capsule,delayed release(DR/EC) 20 mg PO QAM RF: 0 folic acid 1 mg tablet 1 mg PO DAILY RF: 0 digoxin [Digitek] 125 mcg (0.125 mg) tablet 125 mcg PO DAILY RF: 0 metformin 500 mg tablet extended release 24 hr 1,000 mg PO DAILY RF: 0 Jardiance 25 mg tablet 25 mg PO DAILY RF: 0 Ozempic 1 mg/dose (2 mg/1.5 mL) pen injector 1 mg SUBCUT WK RF: 0 spironolactone 25 mg tablet 25 mg PO BID RF: 0 ferrous sulfate 325 mg (65 mg iron) Tablet 325 mg PO QAM RF: 0 aspirin [Claire Chewable Aspirin] 81 mg Tablet,Chewable 81 mg PO DAILY RF: 0 Breo Ellipta 100-25 mcg/dose Blister With Device 1 inh INHALATION DAILY RF: 0 Discharge Orders: Discharge Order (Routine); Ordered 10/16/19 Ordered By: Coral Cadena/Other Patient Handouts: Diabetes Type 2 Managing Admission Data Admit Date/Time: 10/08/19 12:58 Attending Provider: Coral Null Admit Provider: Heidi Thrasher Primary Care Provider: Andrzej Downing Other Providers: Heidi Thrasher ; Donell Khoury ; Ivana Petty ; Anthony Tee Other Interventions: Discharge Summary Assessment (RN) Last Done: 10/16/19 11:38
--- NOTE | 2019-10-16 12:50 | Hospitalist Progress Note ---
Date of Service October 16, 2019 Assessment & Plan (1) Acute respiratory failure with hypoxemia: Pulmonary sarcoid patient on chronic oxygen supplementation who has secondary pulmonary hypertension and associated right heart failure infected with COVID-19. Some worsening hypoxia overnight related to fluid overload, which is being corrected with diuresis. He has responded well to this. (2) Right-sided heart failure: acute decompensation of right sided heart failure with only some improvement with diuresis (net 3.5L out overnight). Cont with this for now. [place] in place. Discussed peripherally with cardiology who will be consulted. They recommended full dose Lovenox as he is high risk for decompensating if he gets a blood clot. Continuing with this now. (3) COVID-19: Cont supportive care. Entertained Plaquenil and convalescent plasma, but will not move forward with this now as not supported by pulmonology. Still investigational. Pt being transferred to a facility where this is being given more consistently, and this may be considered there. (4) Pulmonary sarcoidosis: chronic, on methotrexate which has been held. Cont pred 5 daily per home regimen. (5) Diarrhea: Persistent negative for infection. Imodium PRN (6) Depression: Cont celexa per home medications. Some additional anxiety reported. Lorazepam PRN (7) ANGELES (obstructive sleep apnea): BIPAP when sleeping (8) Pulmonary HTN: 48 yo M with h/o pulmonary sarcoid and ANGELES with secondary pulmonary hypertension and cor pulmonale on 4LPM at baseline, presented with worsening dyspnea. He was found to be COVID-[address] chest revealed stable emphysematous and chronic granulomatous change, superimposed diffuse bilateral parenchymal interstitial infiltrative change, mildly progressive bilateral ple ural effusions with mild to moderate bibasilar atelectatic/consolidative change. He was placed on Rocephin and azithromycin, however, azithromycin was quickly changed to doxycycline 2/2 prolonged QTc. However, he was unable to tolerate doxycycline 2/2 gastrointestinal side effects so this was stopped and Rocephin was continued. He was given a full 7 day course of antibiotics. His methotrexate and prednisone 5mg daily were held in the setting of infection. Prednisone was restarted on 10/11 as blood pressure was in the 90s and he started reporting concern in the way he was feeling. Pulmonary medicine was consulted and with a borderline prolonged QTc, Plaquenil as an investigational therapy, was not recommended. Echocardiogram revealed normal LV wall thickness and function. Ejection fraction is 55-60%. A moderately dilated right ventricle with mild to moderately reduced right ventricular systolic function. Right ventricular systolic pressure was elevated at 50-60mm Hg. Hypokalemia was noted and his diuretics were decreased to furosemide 20mg daily. Home dose of diuretic was torsemide 80mg BID. He remained stable from a pulmonary perspective until 10/13 overnight. At this time he was more dyspneic and found to be volume overloaded. He was aggressively diuresed with intravenous furosemide and improved. He remained on 6-10 LPM supplemental oxygen rotated with intermittent BIPAP which he uses at home. Cardiology was consulted and recommended full dose Lovenox in the setting of high risk VTE. On the morning of 10/15, however, he became tachypneic and nervous off BIPAP and Cardiology and Pulmonary agreed he should be transferred to a higher level of care. Transfer was set up with Dr. Petty in ICU at [facility] and the patient was electively intubated at [facility]. Central line access was placed. (9) DVT prophylaxis: Full dose Lovenox Full Code Dispo-patient was intubated by anesthesia and a central line was placed. He was airlifted to [facility] for further workup and treatment. Accepting ICU physician was Dr. Petty. Family was updated. Coral Null DO [facility] Hospitalist Admission and Anticipated Discharge Date Admission Date: October 08, 2019 Subjective worsening oxygenation and increased anxiety off the BIPAP mask this morning Pt is alert and oriented He is fine with intubation electively prior to transfer as he understands the inherent risks of emergent intubation mid-flight. ROS otherwise negative. Diarrhea resolved. Review of Systems Review of Systems: All systems reviewed & are unremarkable except as noted in Subjective Physical Exam Physical Exam: CONSTITUTIONAL: obese, vitals as above, generally well- appearing but anxious and remains on BIPAP EYES: normal conjunctivae, no scleral icterus ENT: external ear and nose normal, mucous membranes are moist. NECK: trachea midline RESPIRATORY: CTAB with diminished breath sounds at the bases. On baseline supplemental oxygen with intermittent BIPAP while sleeping. CARDIOVASCULAR: regular rate and rhythm, S1 and 2 heard without murmurs, gall ops or rubs, no JVD, no peripheral edema GASTROINTESTINAL: soft, protuberant, nontender, no guarding MUSCULOSKELETAL: strength 5/5 throughout, head is normocephalic and atraumatic SKIN: warm and dry NEUROLOGIC: CN 2-12 grossly intact, no sensory deficit, normal cognition, normal speech, no gross focal deficits. PSYCHIATRIC: alert cooperative and oriented Results & Data Results & Data ([facility]) Vital Signs (Past 12 Hours) Vital Signs Temp Pulse Pulse Resp BP Pulse Ox 10/16/19 11:38 36.8 C 83 26 H 105/67 96 10/16/19 11:17 36.8 C 83 26 H 105/67 96 10/16/19 11:10 96 H 20 96 10/16/19 08:00 38.3 C H 92 H 28 H 121/68 92 10/16/19 07:45 100 H 21 87 L 10/16/19 04:35 104 H 22 96 10/16/19 04:03 37.0 C 80 16 112/70 92 10/16/19 02:38 73 16 94 Laboratory Results Short CBC 10/16/19 Range/Units 04:43 WBC 3.94 L (4.8-10.8) K/uL Hgb 13.9 L (14.0-18.0) g/dL Hct 44.0 (42-52) % Plt Count 285 (130-400) K/uL BMP 10/15/19 10/16/19 17:00 04:43 Sodium 138 140 Potassium 4.6 4.2 Chloride 100 98 Carbon Dioxide 31 37 H BUN 13 15 Creatinine 0.73 0.87 Glucose 112 H 85 Calcium 8.0 L 8.5 Diagnostic Findings CXR pending, wet read: ETT in position above brent, R central IJ in good position. Medications Administered Current Inpatient Medications Acetaminophen (Tylenol) 650 mg PO Q4H PRN PRN Reason: Pain or Fever Stop: 11/07/19 16:27 Last Admin: 10/16/19 08:55 Dose: 650 mg Documented by: Al Hydrox/Mg Hydrox/Simethicone (Maalox) 15 ml PO Q4H PRN PRN Reason: Dyspepsia Stop: 11/07/19 16:27 Albuterol (Ventolin Hfa) 2 puffs INH Q6R PRN PRN Reason: Shortness Of Breath Or Wheezing Stop: 11/09/19 09:44 Last Admin: 10/14/19 07:47 Dose: 2 puffs Documented by: Amoxicillin/Clavulanate Potassium (Augmentin 875mg) 1 tab PO BID@0800,1600 [facility]; Protocol Stop: 10/21/19 15:59 Last Admin: 10/16/19 08:39 Dose: 1 tab Documented by: Aspirin (Aspirin Chew) 81 mg PO DAILY@0800 [facility] Stop: 11/09/19 07:59 Last Admin: 10/16/19 08:39 Dose: 81 mg Documented by: Digoxin (Lanoxin) 0.125 mg PO DAILY@0800 [facility] Stop: 11/08/19 07:59 Last Admin: 10/14/19 08:11 Dose: 0.125 mg Documented by: Enoxaparin Sodium (Lovenox) 129 mg SQ Q12@0800,2000 [facility] Stop: 11/14/19 22:29 Last Admin: 10/16/19 08:42 Dose: 129 mg Documented by: Fluticasone/Vilanterol (Breo Ellipta 100/25 Mcg Inh) 1 puffs INH DAILY@0800 [facility] Stop: 11/09/19 07:59 Last Admin: 10/16/19 08:40 Dose: 1 puffs Documented by: Folic Acid (Folvite) 1 mg PO DAILY@0800 [facility] Stop: 11/08/19 07:59 Last Admin: 10/10/19 08:17 Dose: 1 mg Documented by: Promethazine HCl 12.5 mg/ (Sodium Chloride) 50.5 mls @ 202 mls/hr IV Q6H PRN PRN Reason: Nausea And Vomiting Stop: 11/08/19 11:50 Propofol (Diprivan) 1,000 mg in 100 mls @ 3.591 mls/hr IV .Q24H [facility]; Protocol Stop: 10/19/19 12:14 Furosemide 60 mg/ Syringe 6 mls @ 4 mls/min IV Q12H [facility] Stop: 11/15/19 19:59 Ipratropium [place]asper (Atrovent Hfa) 2 puffs INH Q6R PRN PRN Reason: SOB/WHEEZING Stop: 11/08/19 12:14 Last Admin: 10/14/19 07:48 Dose: 2 puffs Documented by: Loperamide HCl (Imodium) 2 mg PO UD PRN PRN Reason: Diarrhea Stop: 11/14/19 20:34 Lorazepam (Ativan) 0.5 mg PO Q8H PRN PRN Reason: Anxiety Stop: 11/12/19 22:52 Last Admin: 10/16/19 06:09 Dose: 0.5 mg Documented by: Losartan Potassium (Cozaar) 25 mg PO DAILY@0800 [facility] Stop: 11/08/19 07:59 Last Admin: 10/09/19 08:55 Dose: 25 mg Documented by: Magnesium Hydroxide (Milk Of Magnesia) 30 ml PO Q12H PRN PRN Reason: Constipation Stop: 11/07/19 16:27 Nitroglycerin (Nitrostat) 0.4 mg SL UD PRN PRN Reason: Chest Pain Stop: 11/07/19 16:27 Pantoprazole Sodium (Protonix) 40 mg PO QAM@0800 [facility] Stop: 11/08/19 07:59 Last Admin: 10/16/19 08:39 Dose: 40 mg Documented by: Polyethylene Glycol (Miralax Powder Packet) 17 gm PO DAILY PRN PRN Reason: Constipation Stop: 11/07/19 16:27 Potassium Chloride (Klor-Con M20) 20 meq PO BID@0800,1999 [facility] Stop: 11/07/19 19:59 Last Admin: 10/16/19 08:39 Dose: 20 meq Documented by: Prednisone (Prednisone) 5 mg PO DAILY@0800 [facility] Stop: 11/15/19 07:59 Last Admin: 10/16/19 08:40 Dose: 5 mg Documented by: Tamsulosin HCl (Flomax) 0.4 mg PO DAILY@0800 [facility] Stop: 11/08/19 07:59 Last Admin: 10/16/19 08:39 Dose: 0.4 mg Documented by: Tramadol HCl (Ultram) 25 mg PO Q4H PRN PRN Reason: Pain Stop: 11/13/19 01:10 Last Admin: 10/14/19 01:36 Dose: 25 mg Documented by: Zinc Sulfate (Zinc Sulfate) 220 mg PO QD@08 [facility] Stop: 11/15/19 07:59 Last Admin: 10/16/19 08:40 Dose: 220 mg Documented by:
[2019-10-16] MEDS ORDERED: NOREPINEPHRINE (Adult STAT Only) 4 MG in D5W 250 ML IV STA (13:08)
--- NOTE | 2019-10-16 13:12 | XRay Report ---
XR chest 1V portable HISTORY: 48 years-old Male confirm line placement, ETT placement acute respiratory failure COMPARISON: Chest radiograph 10/15/2019, chest CT 10/08/2019 TECHNIQUE: Portable AP view of the chest FINDINGS: Cardiac silhouette is enlarged. Unchanged bilateral hilar prominence. Extensive mixed bilateral inter stitial and alveolar opacities within a mid and lower lung zone and peripheral prominent distribution redemonstrated. There is slightly improved aeration of the right lung. Endotracheal tube has been pl aced terminating 4.8 cm superior to the brent. Status post placement of a right IJ central venous ca theter distal tip terminating in the expected location of the brachiocephalic SVC confluence. No post procedural pneumothorax. Small pleural effusions. Bones of the chest appear grossly intact. IMPRESSION: 1. Lines and tubes as above. 2. Extensive mixed interstitial and alveolar opacities redemonstrated with slightly improved aeration of the right lung. 3. Cardiomegaly. 4. Small pleural effusions. ACT 112: Negative or not required by law. The above report was generated using voice recognition software. It may contain grammatical, syntax o r spelling errors. Electronically signed by: Dmitri Romero M.D. 10/16/2019 1:11 PM
[2019-10-16] MEDS ORDERED: NOREPINEPHRINE (Adult) 8 MG in DEXTROSE 5% 500 ML IV SCH (13:15)
--- NOTE | 2019-10-16 13:21 | Anesthesia Procedure Note ---
Anesthesia Procedure Note Central Line Note Date of procedure: 10/16/19 Indication: Central intravenous access Consent: Risk / Benefits Reviewed With: PT / POA / Parent / Guardian, Accepts Plan, Informed Consent Obtained (verbal consent obtained due to COVID19 infection) and All Questions Answered Monitors attached: Blood Pressure, CO2, EKG and Pulse Oximetry Oxygen delivery method: ETT Time out completed: Yes Premedication: Propofol (mg) (infusion) Laterality: Right Location: Internal Jugular Surgical Prep: Hand hygeine: Alcohol based hand rub Equipment/Supplies: Cap, Mask, Sterile gown, Sterile gloves, Sterile drapes and Sterile procedures used (full PPE + sterile gown and gloves) Skin prep: Chloraprep Ultrasound Guidance: Ultrasound used: Yes US equipment and supplies: Sterile Gel and Sterile Probe Cover Central line lumen: Triple Attempts: 1 Procedure Summary: Central access requested for hypoxic respiratory fail ure/sepsis with active COVID19 infection pending transport to outside facility. Procedure reviewed with patient prior to intubation and consent obtained verbally. Propofol sedation continued after induction and intubation. Right IJ prepped and draped. US Guided access to vein, and US confirmation of wire placement in vein. 3L central line placed in Right IJ vein, all ports aspirated well and flushed. Catheter secured to skin by suture. Biopatch and sterile dressing placed. Post-Procedure: Pt hemodynamically stable, Pt tolerates well, No complication a nd Post placement CXR ordered Intubation Note Date of procedure: 10/16/19 Indication for intubation: Failure to oxygenate and Respiratory distress Consent: Risk / Benefits Reviewed With: PT / POA / Parent / Guardian, Accepts Plan, Informed Consent Obtained (verbal consent obtained, patient covid19+) and All Questions Answered Monitors attached: Blood Pressure, CO2, EKG and Pulse Oximetry Time out completed: Yes Premedication: Etomidate (mg) (16) Paralytic medication: Succinylcholine (mg) (160) Intubation technique: Adequate preoxygenation and RSI Equipment: Glidescope View: Grade 1 Endotracheal tube: Oral, 8.0 and with Stylet Attempts: 1 Tube placement confirmation: Positive CO2 detection Procedure Summary: Requested intubation by medicine team for hypoxic respiratory failure and impending transport to outside facility in the face of active COVID19 infection. Proper PPE worn by MD and [employer]IC[employer]ED LO[employer] OFFICER ASSISTANT. Patient preoxygenated on BiPAP, appropriately NPO. Induction medications followed by intubation. Continuous ETCO2 confirmed, tube secured 24cm at the lip. Adequate hemodynamics throughout. Post-procedure: Pt hemodynamically stable, Pt tolerates well, No complication and Post placement CXR ordered Anesthesia Charges Indication for Procedure (1) Acute respiratory failure with hypoxemia: (2) Sepsis: Central Line C1751 Central Venous Catheter
--- NOTE | 2019-10-16 13:22 | Communication Note ---
Date of Service: October 16, 2019 CXR reviewed. Central line and ETT placement adequate.
[2019-10-16] MEDS ORDERED: NOREPINEPHRINE BITARTRATE 1 MG/ML 4 ML VIAL IV ONE (13:25)
--- NOTE | 2019-10-16 13:49 | Cardiology Consultation ---
Date of Consultation October 16, 2019 Assessment & Plan (1) Acute respiratory failure with hypoxemia: (2) COVID-19: (3) Depression: (4) Pulmonary sarcoidosis: (5) ANGELES (obstructive sleep apnea): (6) HTN (hypertension): (7) Chronic respiratory failure: (8) Pulmonary blastomycosis: (9) DMII (diabetes mellitus, type 2): It was my pleasure to review Mr. Pugh's case at this time which again has included review of medical records both inpatient and outpatient along with discussion with my colleagues. Given his tenuous respiratory status at baseline and worsening hypoxia despite treatment I suspect his respiratory status will only continue to worsen at this point. It does not appear that his COVID-19 infection is the cause for his acute decompensation at this point and it is more likely that his underlying respiratory issues and comorbidities are the cause. Should the patient require intubation and mechanical ventilation I am very doubtful that he will ever be able to come off. Given that it does not appear that it is COVID 19 infection that is causing his decompensation I do not see the benefit of any experimental treatments that are currently being studied and recommended with the ongoing pandemic. I believe the most prudent course of action would be to transfer the patient to a facility that has ECMO capabilities to provide support for him. This was discussed with my colleagues and we are all in agreement that this is wisest course of action. [place] [facility] [place] of Present Illness Reason for Consultation: Dr. Null Requesting Physician: Worsening respiratory distress with a history of pulmonary hypertension and cor pulmonale Attending Physician: Coral Null, DO History of Present Illness I have reviewed Mr. Pugh chart along with his records from the outpatient setting and discussed his case with both critical care and hospitalist services. I have not examined the patient. Mr. Pugh is a very pleasant yet medically complex 48-year-old gentleman normally follows with myself as an outpatient. He presented to [facility] on 10/08/2019 with complaints of worsening shortness of breath and cough. He was found to be COVID-19 positive and treated with supportive measures. His breathing initially improved however in recent days it is now began to deteriorate despite his inflammatory markers trending downwards. He is currently on BiPAP support with episodes of delirium and continued hypoxia. He is not voiced any complaints of chest pain or palpitations. At this point, the question is how to proceed with this significantly medically complex gentleman with worsening respiratory failure in the setting of being COVID-19 positive. Past medical history: 1.Cor pulmonale. 2.Pulmonary hypertension. 3.Chronic hypoxemia on home O2. 4.Sarcoidosis with sarcoid lung disease. Cardiac involvement ruled out by cardiac MRI September 2017. 5.Obesity. 6.Severe obstructive lung disease. 7.Immunocompromised state. 8.History of pulmonary blastomycosis. 9.Normal coronary arteries by cardiac catheterization in July 2016. Allergies Allergy/AdvReac Type Severity Reaction Status Date / Time doxycycline AdvReac Severe Vomiting Verified 10/09/19 13:47 Home Medications Home Medications Medication Instructions Recorded Confirmed Type aspirin [Claire Chewable Aspirin] 81 mg PO DAILY 10/08/19 10/08/19 History citalopram 20 mg PO DAILY 10/08/19 10/08/19 History digoxin [Digitek] 125 mcg PO DAILY 10/08/19 10/08/19 History empagliflozin [Jardiance] 25 mg PO DAILY 10/08/19 10/08/19 History ferrous sulfate 325 mg PO QAM 10/08/19 10/08/19 History fluticasone furoate-vilanterol 1 inh INHALATION DAILY 10/08/19 10/08/19 History [Breo Ellipta] folic acid 1 mg PO DAILY 10/08/19 10/08/19 History losartan 25 mg PO DAILY 10/08/19 10/08/19 History metformin 1,000 mg PO DAILY 10/08/19 10/08/19 History methotrexate sodium 2.5 mg PO DIRECTED 10/08/19 10/08/19 History omeprazole 20 mg PO QAM 10/08/19 10/08/19 History potassium chloride 20 meq PO BID 10/08/19 10/08/19 History prednisone 5 mg PO DAILY 10/08/19 10/08/19 History semaglutide [Ozempic] 1 mg SUBCUT WK 10/08/19 10/08/19 History spironolactone 25 mg PO BID 10/08/19 10/08/19 History tamsulosin 0.4 mg PO DAILY 10/08/19 10/08/19 History torsemide 80 mg PO BID 10/08/19 10/08/19 History Patient History Social History (Reviewed 10/16/19 @ 13:43 by PAWEL Albert Preferred Language: Norwegian Communication Ability: Effective Tree Warden Required: No Beliefs That Will Affect Care: None Current Living Situation: Alone Feels Safe at Home: Yes Smoking Status: Never smoker Tobacco Type: smokeless tobacco ; Hx Alcohol Use: No (rare) Hx Substance Use: No Results & Data ([facility]) Vital Signs (Past 12 Hours) Vital Signs Temp Pulse Pulse Resp BP Pulse Ox 10/16/19 12:46 79 18 96 10/16/19 11:38 36.8 C 83 26 H 105/67 96 10/16/19 11:17 36.8 C 83 26 H 105/67 96 10/16/19 11:10 96 H 20 96 10/16/19 08:00 38.3 C H 92 H 28 H 121/68 92 10/16/19 07:45 100 H 21 87 L 10/16/19 04:35 104 H 22 96 10/16/19 04:03 37.0 C 80 16 112/70 92 10/16/19 02:38 73 16 94 Laboratory Results Laboratory Results - last 24 hr 10/15/19 10/15/19 10/16/19 16:47 17:00 04:43 WBC 3.94 L RBC 4.61 L Hgb 13.9 L Hct 44.0 MCV 95.4 MCH 30.2 MCHC 31.6 L RDW Std Deviation 59.5 H RDW Coeff of María Elena 17.1 H Plt Count 285 MPV 9.5 ESR Sodium 138 Potassium 4.6 Chloride 100 Carbon Dioxide 31 Anion Gap 7.0 BUN 13 Creatinine 0.73 Est Cr Clr Drug Dosing 163.9 Est GFR ( Amer) 126.2 Est GFR (Non-Af Amer) 108.9 BUN/Creatinine Ratio 17.1 Glucose 112 H POC Glucose 110 H Calcium 8.0 L Phosphorus 3.1 Magnesium 2.4 Ferritin C-Reactive Protein 10/16/19 10/16/19 04:43 04:43 WBC RBC Hgb Hct MCV MCH MCHC RDW Std Deviation RDW Coeff of María Elena Plt Count MPV ESR > 90 H Sodium 140 Potassium 4.2 Chloride 98 Carbon Dioxide 37 H Anion Gap 5.0 BUN 15 Creatinine 0.87 Est Cr Clr Drug Dosing 133.2 Est GFR ( Amer) 117.5 Est GFR (Non-Af Amer) 101.3 BUN/Creatinine Ratio 17.4 Glucose 85 POC Glucose Calcium 8.5 Phosphorus 2.8 Magnesium 2.4 Ferritin 1130.8 H C-Reactive Protein 14.30 H Medications Administered Current Inpatient Medications Acetaminophen (Tylenol) 650 mg PO Q4H PRN PRN Reason: Pain or Fever Stop: 11/07/19 16:27 Last Admin: 10/16/19 08:55 Dose: 650 mg Documented by: Al Hydrox/Mg Hydrox/Simethicone (Maalox) 15 ml PO Q4H PRN PRN Reason: Dyspepsia Stop: 11/07/19 16:27 Albuterol (Ventolin Hfa) 2 puffs INH Q6R PRN PRN Reason: Shortness Of Breath Or Wheezing Stop: 11/09/19 09:44 Last Admin: 10/14/19 07:47 Dose: 2 puffs Documented by: Amoxicillin/Clavulanate Potassium (Augmentin 875mg) 1 tab PO BID@0800,1600 [facility]; Protocol Stop: 10/21/19 15:59 Last Admin: 10/16/19 08:39 Dose: 1 tab Documented by: Aspirin (Aspirin Chew) 81 mg PO DAILY@0800 [facility] Stop: 11/09/19 07:59 Last Admin: 10/16/19 08:39 Dose: 81 mg Documented by: Digoxin (Lanoxin) 0.125 mg PO DAILY@0800 [facility] Stop: 11/08/19 07:59 Last Admin: 10/14/19 08:11 Dose: 0.125 mg Documented by: Enoxaparin Sodium (Lovenox) 129 mg SQ Q12@0800,2000 [facility] Stop: 11/14/19 22:29 Last Admin: 10/16/19 08:42 Dose: 129 mg Documented by: Fluticasone/Vilanterol (Breo Ellipta 100/25 Mcg Inh) 1 puffs INH DAILY@0800 [facility] Stop: 11/09/19 07:59 Last Admin: 10/16/19 08:40 Dose: 1 puffs Documented by: Folic Acid (Folvite) 1 mg PO DAILY@0800 [facility] Stop: 11/08/19 07:59 Last Admin: 10/10/19 08:17 Dose: 1 mg Documented by: Promethazine HCl 12.5 mg/ (Sodium Chloride) 50.5 mls @ 202 mls/hr IV Q6H PRN PRN Reason: Nausea And Vomiting Stop: 11/08/19 11:50 Propofol (Diprivan) 1,000 mg in 100 mls @ 3.591 mls/hr IV .Q24H [facility]; Protocol Stop: 10/19/19 12:14 Furosemide 60 mg/ Syringe 6 mls @ 4 mls/min IV Q12H [facility] Stop: 11/15/19 19:59 Ipratropium Hancock (Atrovent Hfa) 2 puffs INH Q6R PRN PRN Reason: SOB/WHEEZING Stop: 11/08/19 12:14 Last Admin: 10/14/19 07:48 Dose: 2 puffs Documented by: Loperamide HCl (Imodium) 2 mg PO UD PRN PRN Reason: Diarrhea Stop: 11/14/19 20:34 Lorazepam (Ativan) 0.5 mg PO Q8H PRN PRN Reason: Anxiety Stop: 11/12/19 22:52 Last Admin: 10/16/19 06:09 Dose: 0.5 mg Documented by: Losartan Potassium (Cozaar) 25 mg PO DAILY@0800 [facility] Stop: 11/08/19 07:59 Last Admin: 10/09/19 08:55 Dose: 25 mg Documented by: Magnesium Hydroxide (Milk Of Magnesia) 30 ml PO Q12H PRN PRN Reason: Constipation Stop: 11/07/19 16:27 Nitroglycerin (Nitrostat) 0.4 mg SL UD PRN PRN Reason: Chest Pain Stop: 11/07/19 16:27 Pantoprazole Sodium (Protonix) 40 mg PO QAM@0800 [facility] Stop: 11/08/19 07:59 Last Admin: 10/16/19 08:39 Dose: 40 mg Documented by: Polyethylene Glycol (Miralax Powder Packet) 17 gm PO DAILY PRN PRN Reason: Constipation Stop: 11/07/19 16:27 Potassium Chloride (Klor-Con M20) 20 meq PO BID@08,1999 [facility] Stop: 11/07/19 19:59 Last Admin: 10/16/19 08:39 Dose: 20 meq Documented by: Prednisone (Prednisone) 5 mg PO DAILY@0800 [facility] Stop: 11/15/19 07:59 Last Admin: 10/16/19 08:40 Dose: 5 mg Documented by: Tamsulosin HCl (Flomax) 0.4 mg PO DAILY@0800 [facility] Stop: 11/08/19 07:59 Last Admin: 10/16/19 08:39 Dose: 0.4 mg Documented by: Tramadol HCl (Ultram) 25 mg PO Q4H PRN PRN Reason: Pain Stop: 11/13/19 01:10 Last Admin: 10/14/19 01:36 Dose: 25 mg Documented by: Zinc Sulfate (Zinc Sulfate) 220 mg PO QD@08 [facility] Stop: 11/15/19 07:59 Last Admin: 10/16/19 08:40 Dose: 220 mg Documented by:
[2019-10-16] MEDS ORDERED: ETOMIDATE 2 MG/ML 20 ML VIAL IV ONE (15:11)
[2019-10-16] MEDS ORDERED: FUROSEMIDE 60 MG in SYRINGE 0 ML IV SCH ×2 (20:00→21:00)
--- NOTE | 2019-11-02 06:28 | Coding Query ---
CODING QUERY To promote full compliance with coding requirements relating to patient care, provider participation is requested in all cases of global commodity manager uncertainty. Please assist us with the question(s) below: Coding Question(s): Please clarify if Sepsis was ruled out and if the patient did have Sepsis was it caused by the COVID-19. Physician's Response(s): There were multiple episodes of fever and tachycardia in the setting of COVID-19 infection during his hospitalization. While under my care he was also dealing with fluid overload and baseline respiratory failure with worsening hypoxia. I am not of the opinion that he was septic while under my care during the last half of his hospitalization. However, I cannot speak to what the clinical thought process was during the first half of his admission, as he may have had sepsis and was resuscitated. I would refer you to Dr. Heidi Thrasher who took care of him during that time. If she feels he was septic, this would be a diagnosis that can be carried through the hospitalization. Please let me know if you have any further questions. Thank you. Dr. Null Principal Diagnosis: "that condition established after study, to be chiefly responsible for occasioning the admission of the patient to the hospital for care." Co-Existing Principal Diagnosis: "when two or more diagnoses equally meet the criteria for principal diagnosis as determined by the circumstances of admission, diagnostic work up, and/or therapy provided, and the Alphabetic Index, Tabular List, or another coding guideline does not provide sequencing direction, any one of the diagnoses may be sequenced first." "When the physician has documented what appears to be a current diagnosis in the body of the record, but has not included the diagnosis in the final diagnostic statement, the physician should be asked whether the diagnosis should be added." ([facility] 2 QTR90. p3-4) YENNYD
--- NOTE | 2019-11-09 07:09 | Coding Query ---
CODING QUERY To promote full compliance with coding requirements relating to patient care, provider participation is requested in all cases of freelance photographer uncertainty. Please assist us with the question(s) below: Coding Question(s): Please clarify if sepsis was ruled out and if patient did have sepsis was it caused by COVID-19. Physician's Response(s): Pt admitted with respiratory failure /sepsis due to COVID 19 Heidi Thrasher Thank you Tegan Orta Principal Diagnosis: "that condition established after study, to be chiefly responsible for occasioning the admission of the patient to the hospital for care." Co-Existing Principal Diagnosis: "when two or more diagnoses equally meet the criteria for principal diagnosis as determined by the circumstances of admission, diagnostic work up, and/or therapy provided, and the Alphabetic Index, Tabular List, or another coding guideline does not provide sequencing direction, any one of the diagnoses may be sequenced first." "When the physician has documented what appears to be a current diagnosis in the body of the record, but has not included the diagnosis in the final diagnostic statement, the physician should be asked whether the diagnosis should be added." ([facility] 2 QTR90. p3-4) AUGUSTINA
== END 2019-10-16 13:46 | disposition short-term general hospital (02) | DRG 177 ==
LOC: ED 10:43 → SUATTDRO 12:58 → 2S 12:58 → 2E 10-09 10:23

== ENCOUNTER 2022-03-02 18:49 | Inpatient (IN) ==
[2022-03-02] MEDS ORDERED: KETOROLAC TROMETHAMINE 15 MG/ML VIAL IV ONE (19:06)
[2022-03-02] MEDS ORDERED: SODIUM CHLORIDE 0.9% 1000ML 500 ML IV ONE (19:06)
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
[2022-03-02 19:37] LABS: Basophils # (auto) 0.04 K/uL (0-0.2); Basophils % (auto) 0.4 %; Eosinophils % (auto) 1.9 %; Hematocrit (blood only) 53.1 % (40.1-51.0); Hemoglobin 17.7 g/dl (14.0-18.0); Immature Granulocytes # (auto) 0.05 K/uL (0.00-0.02); Immature Granulocytes % (auto) 0.5 %; Lymphocytes # (auto) 0.62 K/uL (1.2-3.4); Lymphocytes % (auto) 5.8 %; Mean Corpuscular Hgb Conc 33.3 g/dL (32.0-36.0); Mean Platelet Volume 8.6 fL (9.4-12.4); Monocytes # (auto) 0.74 K/uL (0.24-0.82); Monocytes % (auto) 6.9 %; Neutrophils # (auto) 9.08 K/uL (1.4-6.5); Neutrophils % (auto) 84.5 %; Platelet Count 289 K/uL (130-400); RDW Coefficient of Variation 15.4 % (11.5-14.5); RDW Standard Deviation 52.4 fL (36.4-46.3); Red Blood Count 5.71 M/uL (4.63-6.08); White Blood Count 10.73 K/ul (4.8-10.8)
[2022-03-02 19:56] LABS: Albumin Globulin Ratio 1.2 (0.9-2); Albumin Level 4.3 gm/dl (3.4-5.0); BUN Creatinine Ratio 15.6 (10-20); Bilirubin,Total 0.8 mg/dl (0.2-1.0); Calcium 9.2 mg/dl (8.5-10.1); Creatinine Clr Calc Pharmacy 101.1 ml/min; Est GFR (Non-African American) 77.6 ml/min; Globulin 3.6 gm/dl (2.5-4.0); Potassium 3.2 mmol/L (3.5-5.1); Total Protein 7.9 gm/dl (6.0-8.3)
[2022-03-02 20:13] LABS: iSTAT Creatinine 1.1 mg/dl (0.6-1.3); iSTAT Hemoglobin 18.4 g/dl (14.0-18.0); iSTAT Ionized Calcium 1.11 mmol/l (1.12-1.32); iSTAT Potassium 3.1 mmol/L (3.3-5.0)
[2022-03-02] MEDS ORDERED: IOVERSOL 350 MG 100mL Prefilled Syringe IV ONE (20:17)
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
[2022-03-02] MEDS ORDERED: POTASSIUM CHLORIDE CRTAB 20 MEQ TABCR PO STA ×2 (21:40→23:41)
[2022-03-02 22:39] LABS: Allen Test Pos (Pos); Base Excess ABG 12.1 mEq/L (-9-1.8); HCO3 ABG 38 mmol/L (19-24); Oxygen Saturation ABG 99.4 % (90-95); PCO2 ABG 52 mmHg (35-46); PO2 ABG 123 mmHg (80-95); pH ABG 7.47 (7.35-7.45)
[2022-03-02 22:41] LABS: Partial Thromboplastin Ratio 1.1; Partial Thromboplastin Time 30.3 Seconds (21.0-31.0)
[2022-03-02 23:01] LABS: Magnesium 2.1 mg/dl (1.7-2.4)
[2022-03-02 23:06] LABS: Troponin I High Sensitivity 66.4 pg/ml (0-20)
--- NOTE | 2022-03-02 23:36 | History & Physical Report ---
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 Chronic reticular nodular opacities with numerous bilateral calcified and noncalcified pulmonary nodules. Unremarkable soft tissues. Degenerative changes of the shoulders and spine. Mild cortical buckling of the anterior left sixth rib is unchanged compatible with a healed chronic fracture. Additionally healed chronic right-sided rib fractures are present. Chronic T11 compression deformity with superior endplate Schmorl's node. No retropulsion. CT ABDOMEN/PELVIS: No pneumatosis or pneumoperitoneum. Unremarkable spleen, pancreas and adrenal glands. Cholelithiasis without CT evidence of acute cholecystitis. 4.6 cm mass of the right hepatic lobe is suggestive of a probable hemangioma. Hepatomegaly. Patency of the hepatic and portal veins. There are 2 nonobstructing calculi of the right kidney measuring up to 4 mm. Indeterminate 8 mm exophytic slightly hyperdense lesion within the inferior pole right kidney on image 286. There is additional subcentimeter hypodense focus within the inferior pole right kidney which is too small to characterize. No ureteral calculi or hydronephrosis. Unremarkable urinary bladder. Prostamegaly. Small fat filled inguinal hernias. Unremarkable abdominal aorta and IVC. No lymphadenopathy. Prominent gastrohepatic lymph nodes are nonspecific. No bowel obstruction or bowel wall thickening. Tiny fat filled umbilical hernia. Unremarkable soft tissues. No acute rib fracture identified. Minimal superior endplate compression of the L1 vertebral body, new from 10/10/2016 without retropulsion. Mild lumbar levoscoliosis. CT THORACIC: Mild to moderate multilevel intervertebral disc space narrowing with mild facet arthrosis. Chronic T11 compression deformity. Minimal superior endplate compression of less than 20% is noted at T6 without retropulsion, new from prior. CT LUMBAR: Mild superior endplate compression of L1 of less than 20% is new from prior. No retropulsion. Mild lumbar levoscoliosis. Transitional lumbosacral anatomy. IMPRESSION: 1. Mild likely acute or subacute L1 compression deformity without retropulsion. 2. Chronic T11 compression fracture. Minimal superior endplate compression of T6 without retropulsion is new from the 2017 comparison, likely chronic. 3. No pneumothorax or acute solid organ injury. 4. 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 5. No bowel obstruction or bowel wall thickening. 6. Indeterminate 8 mm lesion within the inferior pole right kidney. This could be correlated with a nonemergent follow-up renal ultrasound. 7. Right nephrolithiasis. ACT 112: Negative or not required by law. Electronically signed by: Bryce Romero M.D. 03/02/2022 9:[address] 03/02/22 19:[address] WITH CONTRAST; CT ABDOMEN AND PELVIS WITH IV CONTRAST; CT THORACIC SPINE WITH IV CONTRAST; CT LUMBAR SPINE WITH IV CONTRAST HISTORY: Acute trauma Trauma TECHNIQUE: Multiaxial CT images of the chest, abdomen and pelvis, thoracic and lumbar spine were performed following the IV administration of 92 cc of Optiray. A dose lowering technique was utilized adhering to the principles of ALARA. COMPARISON: Chest CT 10/08/2019, CT abdomen and pelvis 10/10/2016, September 19, 2012 liver MRI. FINDINGS: CT CHEST: No thyroid nodule. The heart is upper limits of normal in size. Moderate coronary artery calcifications. No thoracic aortic aneurysm. Unremarkable pulmonary artery. Calcified mediastinal and hilar lymph nodes. Unchanged prominent epicardial noncalcified lymph nodes. Loculated left and complex right pleural effusions with chronic pleural thickening appears similar to the comparison study. Calcifications are also within the complex right pleural fluid. Architectural distortion with bronchial wall thickening and mucous plugging. Chronic reticular nodular opacities with numerous bilateral calcified and noncalcified pulmonary nodules. Unremarkable soft tissues. Degenerative changes of the shoulders and spine. Mild cortical buckling of the anterior left sixth rib is unchanged compatible with a healed chronic fracture. Additionally healed chronic right-sided rib fractures are present. Chronic T11 compression deformity with superior endplate Schmorl's node. No retropulsion. CT ABDOMEN/PELVIS: No pneumatosis or pneumoperitoneum. Unremarkable spleen, pancreas and adrenal glands. Cholelithiasis without CT evidence of acute cholecystitis. 4.6 cm mass of the right hepatic lobe is suggestive of a probable hemangioma. Hepatomegaly. Patency of the hepatic and portal veins. There are 2 nonobstructing calculi of the right kidney measuring up to 4 mm. Indeterminate 8 mm exophytic slightly hyperdense lesion within the inferior pole right kidney on image 286. There is additional subcentimeter hypodense focus within the inferior pole right kidney which is too small to characterize. No ureteral calculi or hydronephrosis. Unremarkable urinary bladder. Prostamegaly. Small fat filled inguinal hernias. Unremarkable abdominal aorta and IVC. No lymphadenopathy. Prominent gastrohepatic lymph nodes are nonspecific. No bowel obstruction or bowel wall thickening. Tiny fat filled umbilical hernia. Unremarkable soft tissues. No acute rib fracture identified. Minimal superior endplate compression of the L1 vertebral body, new from 10/10/2016 without retropulsion. Mild lumbar levoscoliosis. CT THORACIC: Mild to moderate multilevel intervertebral disc space narrowing with mild facet arthrosis. Chronic T11 compression deformity. Minimal superior endplate compression of less than 20% is noted at T6 without retropulsion, new from prior. CT LUMBAR: Mild superior endplate compression of L1 of less than 20% is new from prior. No retropulsion. Mild lumbar levoscoliosis. Transitional lumbosacral anatomy. IMPRESSION: 1. Mild likely acute or subacute L1 compression deformity without retropulsion. 2. Chronic T11 compression fracture. Minimal superior endplate compression of T6 without retropulsion is new from the 2017 comparison, likely chronic. 3. No pneumothorax or acute solid organ injury. 4. 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 5. No bowel obstruction or bowel wall thickening. 6. Indeterminate 8 mm lesion within the inferior pole right kidney. This could be correlated with a nonemergent follow-up renal ultrasound. 7. Right nephrolithiasis. ACT 112: Negative or not required by law. Electronically signed by: Bryce Romero M.D. 03/02/2022 9:05 PM EKG as per my interpretation :Rate 85, NSR, RAD, RVH, T wave abnormalities septal leads
[2022-03-02] MEDS ORDERED: oxyCODONE HCL IR 5 MG TAB (IMMEDIATE RELEASE) PO PRN (23:41)
[2022-03-02] MEDS ORDERED: PROMETHAZINE HCL 12.5 MG in SODIUM CHLORIDE 0.9% 50 ML IV PRN (23:41)
[2022-03-02] MEDS ORDERED: LORazepam 0.5 MG TAB PO PRN (23:41)
[2022-03-03] MEDS ORDERED: DEXTROSE 50% 50 ML SYRINGE IV PRN (01:06)
[2022-03-03] MEDS ORDERED: GLUCAGON FOR INJ 1 MG VIAL SQ PRN (01:06)
[2022-03-03] MEDS ORDERED: CARBOHYDRATES FOR HYPOGLYCEMIA PO PRN (01:06)
[2022-03-03] MEDS ORDERED: GLUCOSE 10 TAB/TUBE PO PRN (01:06)
[2022-03-03] MEDS ORDERED: GLUCOSE 40% GEL 15 GM TUBE PO PRN (01:06)
[2022-03-03] MEDS ORDERED: CETIRIZINE HCL 10 MG TABLET PO PRN (01:06)
[2022-03-03] MEDS: INSULIN ASPART PER UNIT SC SCH ×5 (01:52→20:03)
[2022-03-03] MEDS ORDERED: ALBUMIN 25% 100 mL 25 GM/100 ML VIAL IV ONE (03:37)
[2022-03-03 05:13] LABS: Basophils # (auto) 0.03 K/uL (0-0.2); Basophils % (auto) 0.3 %; Eosinophils % (auto) 3.4 %; Hemoglobin 15.7 g/dl (14.0-18.0); Immature Granulocytes # (auto) 0.04 K/uL (0.00-0.02); Immature Granulocytes % (auto) 0.5 %; Lymphocytes # (auto) 1.09 K/uL (1.2-3.4); Lymphocytes % (auto) 12.3 %; Mean Corpuscular Hgb Conc 33.4 g/dL (32.0-36.0); Mean Corpuscular Volume 92.9 fL (80.0-100.0); Mean Platelet Volume 8.9 fL (9.4-12.4); Monocytes # (auto) 0.83 K/uL (0.24-0.82); Monocytes % (auto) 9.4 %; Neutrophils # (auto) 6.57 K/uL (1.4-6.5); Neutrophils % (auto) 74.1 %; Platelet Count 300 K/uL (130-400); RDW Coefficient of Variation 15.3 % (11.5-14.5); RDW Standard Deviation 51.8 fL (36.4-46.3); Red Blood Count 5.06 M/uL (4.63-6.08); White Blood Count 8.86 K/ul (4.8-10.8)
[2022-03-03 05:59] LABS: BUN Creatinine Ratio 16.2 (10-20); Calcium 8.7 mg/dl (8.5-10.1); Creatinine Clr Calc Pharmacy 105.5 ml/min; Est GFR (African American) 94.1 ml/min; Est GFR (Non-African American) 81.2 ml/min; Potassium 3.4 mmol/L (3.5-5.1)
[2022-03-03 06:00] LABS: Troponin I High Sensitivity 60.7 pg/ml (0-20)
[2022-03-03] MEDS ORDERED: POTASSIUM CHLORIDE CRTAB 20 MEQ TABCR PO STA (06:35)
[2022-03-03] MEDS: FERROUS SULFATE 325 MG TAB PO SCH (08:49)
[2022-03-03] MEDS: PANTOprazole 40 MG TAB PO SCH (08:49)
[2022-03-03] MEDS: MULTIVITAMIN TAB PO SCH (08:49)
[2022-03-03] MEDS: FOLIC ACID 1 MG TAB PO SCH (08:49)
[2022-03-03] MEDS: TAMSULOSIN HCL 0.4 MG CAP PO SCH (08:49)
[2022-03-03] MEDS: CITALOPRAM 20 MG TAB PO SCH (08:50)
[2022-03-03] MEDS: ASPIRIN 81 MG CHEW PO SCH (08:50)
[2022-03-03] MEDS: FLUTICASONE PROPIONATE NA SPR 16 GM BTL SCH (08:51)
[2022-03-03] MEDS: FLUTICASONE/VILANTEROL 200/25MCG 14 PUFFS/INHALER INH SCH (08:51)
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
[2022-03-03] MEDS: LOSARTAN POTASSIUM 25 MG TAB PO SCH (08:55)
[2022-03-03] MEDS: AZELASTINE HCL 0.1% NASAL 200 SPRAYS/27,400 MCG BTL SCH ×2 (08:59→20:03)
[2022-03-03] MEDS ORDERED: FLUTICASONE/VILANTEROL 200/25MCG 14 PUFFS/INHALER INH SCH (09:00)
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
[2022-03-03] MEDS: ACETAMINOPHEN 325 MG TAB PO PRN ×2 (11:17→20:10)
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
[2022-03-03] MEDS ORDERED: DIGOXIN 0.125 MG TAB PO SCH (16:00)
[2022-03-03] MEDS: SPIRONOLACTONE 25 MG TAB PO SCH (20:04)
[2022-03-03] MEDS: TORSEMIDE 20 MG TAB PO SCH (20:05)
[2022-03-03] MEDS ORDERED: MONTELUKAST SODIUM 10 MG TABLET PO SCH (21:00)
--- NOTE | 2022-03-03 22:49 | Electrocardiogram Report ---
Test Reason : Blood Pressure : / mmHG Vent. Rate : 086 BPM Atrial Rate : 086 BPM P-R Int : 148 ms QRS Dur : 114 ms QT Int : 396 ms P-R-T Axes : 046 146 049 degrees QTc Int : 473 ms Normal sinus rhythm Right axis deviation Right ventricular hypertrophy Nonspecific ST abnormality Abnormal ECG When compared with ECG of 10-OCT-2019 11:48, Nonspecific T wave abnormality, improved in Inferior leads T wave inversion less evident in Anterolateral leads Confirmed by Armaan Cowan ([id number]) on 03/03/2022 10:48:34 PM Referred By: REFERRED SELF Confirmed By:Armaan Cowan
[2022-03-04 07:10] LABS: Basophils # (auto) 0.03 K/uL (0-0.2); Basophils % (auto) 0.4 %; Eosinophils # (auto) 0.38 K/uL (0-0.50); Immature Granulocytes # (auto) 0.02 K/uL (0.00-0.02); Immature Granulocytes % (auto) 0.3 %; Lymphocytes # (auto) 0.83 K/uL (1.2-3.4); Lymphocytes % (auto) 10.9 %; Mean Corpuscular Hemoglobin 30.9 pg (25.0-34.0); Mean Corpuscular Hgb Conc 32.7 g/dL (32.0-36.0); Mean Corpuscular Volume 94.8 fL (80.0-100.0); Monocytes # (auto) 0.72 K/uL (0.24-0.82); Monocytes % (auto) 9.5 %; Neutrophils % (auto) 73.9 %; Platelet Count 293 K/uL (130-400); RDW Coefficient of Variation 15.4 % (11.5-14.5); RDW Standard Deviation 53.7 fL (36.4-46.3); Red Blood Count 5.17 M/uL (4.63-6.08); White Blood Count 7.58 K/ul (4.8-10.8)
[2022-03-04 07:38] LABS: BUN Creatinine Ratio 16.3 (10-20); Creatinine Clr Calc Pharmacy 112.8 ml/min; Est GFR (African American) 102.3 ml/min; Est GFR (Non-African American) 88.3 ml/min; Potassium 3.4 mmol/L (3.5-5.1)
[2022-03-04] MEDS: ACETAMINOPHEN 325 MG TAB PO PRN (07:52)
[2022-03-04] MEDS: MULTIVITAMIN TAB PO SCH (07:53)
[2022-03-04] MEDS: FOLIC ACID 1 MG TAB PO SCH (07:53)
[2022-03-04] MEDS: TAMSULOSIN HCL 0.4 MG CAP PO SCH (07:53)
[2022-03-04] MEDS: ASPIRIN 81 MG CHEW PO SCH (07:53)
[2022-03-04] MEDS: PANTOprazole 40 MG TAB PO SCH (07:53)
[2022-03-04] MEDS: TORSEMIDE 20 MG TAB PO SCH (07:54)
[2022-03-04] MEDS: CITALOPRAM 20 MG TAB PO SCH (07:54)
[2022-03-04] MEDS: FERROUS SULFATE 325 MG TAB PO SCH (07:54)
[2022-03-04] MEDS: LOSARTAN POTASSIUM 25 MG TAB PO SCH (07:54)
[2022-03-04] MEDS: FLUTICASONE PROPIONATE NA SPR 16 GM BTL SCH (07:55)
[2022-03-04] MEDS: FLUTICASONE/VILANTEROL 200/25MCG 14 PUFFS/INHALER INH SCH (07:55)
[2022-03-04] MEDS: AZELASTINE HCL 0.1% NASAL 200 SPRAYS/27,400 MCG BTL SCH (07:55)
[2022-03-04] MEDS: SPIRONOLACTONE 25 MG TAB PO SCH (07:56)
[2022-03-04] MEDS: INSULIN ASPART PER UNIT SC SCH ×2 (08:11→12:04)
[2022-03-04] MEDS ORDERED: ENOXAPARIN INJ 40 MG/0.4 ML SYR SQ SCH (09:00)
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
== END 2022-03-04 12:30 | disposition home or self-care (01) | DRG 543 ==
LOC: 2W 18:49 → ED 18:49 → 2W 03-03 00:55

== ENCOUNTER 2023-08-30 14:22 | Inpatient (IN) ==
[2023-08-30] MEDS: methylPREDNISolone 125 MG/2 ML VIAL IV STA (16:08)
[2023-08-30] MEDS: ALBUT/IPRATROP 3MG/0.5MG NEB 3 ML VIAL NEB ONE (16:09)
--- NOTE | 2023-08-30 16:10 | XRay Report ---
SINGLE VIEW CHEST CLINICAL HISTORY: Atypical chest pain. FINDINGS: An AP, portable, upright chest radiograph is compared to study dated 10/16/2019 and correlat ed with chest CT dated 03/02/2022. The heart is enlarged. There is pulmonary vascular congestion. Bila teral airspace opacities likely represent interstitial edema. There are layering pleural effusions wi th dependent consolidation. There are scattered calcified granulomas. Parenchymal scarring/fibrosis i s noted throughout both lung. No pneumothorax is seen. The skeletal structures are osteopenic. The [place] thorax is grossly intact. IMPRESSION: 1. Cardiomegaly with evidence of congestive failure. 2. Bilateral airspace opacities are similar to prior studies and may represent chronic scarring/fibro sis. Correlate clinically for evidence of a superimposed infectious/inflammatory pneumonitis or mild pulmonary edema. Radiographic follow-up is advised. 3. Small pleural effusions with dependent consolidation. These may be chronic. ACT 112: Negative or not required by law. Electronically signed by: Demetrius Pettit M.D. 08/30/2023 4:09 PM
[2023-08-30 16:13] LABS: Basophils # (auto) 0.04 K/uL (0.00-0.20); Basophils % (auto) 0.4 %; Eosinophils # (auto) 0.15 K/uL (0.00-0.50); Eosinophils % (auto) 1.6 %; Hematocrit (blood only) 49.9 % (42.0-52.0); Hemoglobin 16.4 g/dl (14.0-18.0); Immature Granulocytes # (auto) 0.03 K/uL (0.01-0.20); Immature Granulocytes % (auto) 0.3 %; Lymphocytes # (auto) 0.81 K/uL (1.20-3.40); Lymphocytes % (auto) 8.7 %; Mean Corpuscular Hemoglobin 30.9 pg (25.0-34.0); Mean Corpuscular Hgb Conc 32.9 g/dL (32.0-36.0); Mean Platelet Volume 8.9 fL (9.4-12.4); Monocytes % (auto) 9.6 %; Neutrophils % (auto) 79.4 %; Platelet Count 298 K/uL (130-400); RDW Coefficient of Variation 14.2 % (11.5-14.5); RDW Standard Deviation 48.6 fL (36.4-46.3); Red Blood Count 5.31 M/uL (4.70-6.10); White Blood Count 9.33 K/ul (4.8-10.8)
[2023-08-30 16:43] LABS: Calcium 9.5 mg/dl (8.6-10.3); Potassium 3.1 mmol/L (3.5-5.1)
[2023-08-30 16:49] LABS: BUN Creatinine Ratio 12.3 (10-20); Creatinine Clr Calc Pharmacy 89.7 ml/min; Est GFR (African American) 84.6 ml/min
[2023-08-30 16:53] LABS: Troponin I High Sensitivity 21.6 pg/ml (0-20)
[2023-08-30] MEDS: POTASSIUM CHLORIDE 10 MEQ TABCR PO STA (17:05)
[2023-08-30] MEDS: FUROSEMIDE 40 MG/4 ML VIAL IV ONE (17:05)
[2023-08-30 17:06] LABS: Base Excess VBG 10.3 mEq/L; HCO3 VBG 35 mmol/L; Oxygen Saturation VBG 99.4 %; PCO2 VBG 46 mmHg (38-50); PO2 VBG 166 mmHg; pH VBG 7.49 (7.36-7.41)
[2023-08-30 17:18] LABS: Adenovirus PCR Not Detected (NotDetected); Bordetella parapertussis PCR Not Detected (NotDetected); Bordetella pertussis PCR Not Detected (NotDetected); Chlamydia pneumoniae PCR Not Detected (NotDetected); Coronavirus 229E PCR Not Detected (NotDetected); Coronavirus CoV-2 (COVID19)PCR Not Detected (NotDetected); Coronavirus HKU1 PCR Not Detected (NotDetected); Coronavirus NL63 PCR Not Detected (NotDetected); Coronavirus OC43PCR Not Detected (NotDetected); Human Metapneumovirus PCR Not Detected (NotDetected); Influenza A PCR Not Detected (NotDetected); Influenza B PCR Not Detected (NotDetected); Mycoplasma pneumoniae PCR Not Detected (NotDetected); Parainfluenza Virus 1 PCR Not Detected (NotDetected); Parainfluenza Virus 2 PCR Not Detected (NotDetected); Parainfluenza Virus 3 PCR DETECTED (NotDetected); Parainfluenza Virus 4 PCR Not Detected (NotDetected); Respiratory Syncytial VirusPCR Not Detected (NotDetected); Rhinovirus/Enterovirus PCR Not Detected (NotDetected)
--- NOTE | 2023-08-30 17:48 | History & Physical Report ---
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 [facility] [place] 2 diabetes, hypertension, depression, history of C. difficile and other medical problems listed below who presents from home feeling rundown with shortness of breath of the past 4 days and was found to have COPD exacerbation in setting of URI. Acute on chronic respiratory failure requiring high flow nasal cannula on admission (is on chronic 3 to 4 L nasal cannula oxygen at baseline) Endorsing recent URI with productive sputum, cough Respiratory viral panel positive for parainfluenza Afebrile, no leukocytosis, VBG pH of 7.49 Procalcitonin negative CXR with Cardiomegaly with evidence of congestive failure. Bilateral airspace opacities are similar to prior studies and may represent chronic scarring/fibrosis. Correlate clinically for evidence of a superimposed infectious/inflammatory pneumonitis Given 125mg solumedrol in ED - continue with 40mg Q8H, Duonebs QIDR, wean O2 to baseline as tolerated, Mucinex BID, Flutter valve Continue home Breo, spiriva inh Routine pulm consult [place] [facility] [place] - no longer on methotrexate or predni sone (5) ANGELES (obstructive sleep apnea): Plan: On bipap HS with 6L NC O2 bled through HS (6) Right-sided heart failure: Plan: In setting of cor pulmonale, pulm HTN Appears euvolemic on exam, denies any recent BLE edema Took torsemide this AM, given 40mg IV lasix in ED BNP WNL Continue home diuretics with Torsemide 80mg BID, spironolactone TID Continue digoxin Due for cards follow up 09/06 (7) Hypokalemia: Plan: Initial K 3.1, replaced Continue home supplementation Monitor with daily BMP (8) HTN (hypertension): Plan: Initially on lower side, now 119/73 Continue losartan, spironolactone, torsemide as above (9) Depression: Plan: Chronic, stable. Continue SSRI (10) DMII (diabetes mellitus, type 2): Plan: Well- controlled, last a1c 5.4 in 09/26 Hold home agents SSI while in-patient BSG AC HS DVT Ppx: SQ lovenox Code status: FULL PCP: Chang Dispo: Admitted to PCU Patient seen in collaboration with Dr. Null. Please see addendum. I spent a total of 75 minutes coordinating, documenting, and providing care for this patient excluding time spent in the performance of separately billed services. History of Present Illness Chief Complaint: Shortness of breath Primary Care Provider: Andrzej Downing MD This is a 52-year-old male with PMH of COPD, sarcoidosis of lung, chronic respiratory failure on 3 to 4 L nasal cannula O2 at baseline, severe obstructive sleep apnea on bipap, history of chronic right-sided heart failure in setting of cor pulmonale, pulm HTN, 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 [facility] [place] type 2 diabetes, hypertension, depression, history of C. difficile and other medical problems listed below who presents from home feeling rundown with shortness of breath of the past 4 days. Patient states he has had nasal congestion and cough and feels like he has phlegm stuck in the back of his throat and upper chest. Denies any fever or chills. Was taking Mucinex at home until he ran out last evening. Has been using nebulizers routinely, where he normally just uses as needed. Also states that at baseline, he can sit comfortably on 2 L of oxygen but has been persistently short of breath over the past 2 days and has required at least 4 L nasal cannula oxygen and still feels short of breath, prompting evaluation at ED. Has some pleuritic chest pain and wheezing. No nausea, vomiting, abdominal pain, dysuria, diarrhea or constipation. States that he has not noted any increase swelling in lower legs and has been taking diuretics as prescribed, including this morning's torsemide dose. Allergies Allergy/AdvReac Type Severity Reaction Status Date / Time doxycycline AdvReac Severe Vomiting Verified 03/02/22 19:11 Home Medications Medication Instructions Recorded Confirmed Type aspirin 81 mg chewable tablet 81 mg PO DAILY 10/08/19 08/30/23 History (Claire Chewable Low Dose Aspirin) citalopram 20 mg tablet 20 mg PO DAILY 10/08/19 08/30/23 History digoxin 125 mcg (0.125 mg) tablet 125 mcg PO DAILY 10/08/19 08/30/23 History (Digitek) empagliflozin 25 mg tablet 25 mg PO DAILY 10/08/19 08/30/23 History (Jardiance) ferrous sulfate 325 mg (65 mg 325 mg PO QAM 10/08/19 08/30/23 History iron) tablet folic acid 1 mg tablet 1 mg PO DAILY 10/08/19 08/30/23 History losartan 25 mg tablet 25 mg PO DAILY 10/08/19 08/30/23 History metformin 500 mg tablet,extended 1,000 mg PO DAILY 10/08/19 08/30/23 History release 24 hr omeprazole 20 mg capsule,delayed 20 mg PO QAM 10/08/19 08/30/23 History release potassium chloride 20 mEq 20 meq PO BID 10/08/19 08/30/23 History tablet,extended release(part/cryst) semaglutide 1 mg/dose (2 mg/1.5 1 mg subcut WK 10/08/19 08/30/23 History mL) subcutaneous pen injector (Ozempic) spironolactone 25 mg tablet 25 mg PO TID 10/08/19 08/30/23 History tamsulosin 0.4 mg capsule 0.4 mg PO DAILY 10/08/19 08/30/23 History torsemide 20 mg tablet 80 mg PO BID 10/08/19 08/30/23 History albuterol sulfate 2.5 mg/3 mL 2.5 mg inhalation UD PRN Dyspnea 03/02/22 08/30/23 History (0.083 %) solution for nebulization albuterol sulfate 90 mcg/actuation 2 puff inhalation Q4 PRN Dyspnea 03/02/22 08/30/23 History aerosol inhaler ascorbic acid (vitamin C) 250 mg 500 - 750 mg PO DAILY 03/02/22 08/30/23 History tablet (Vitamin C) azelastine 137 mcg (0.1 %) nasal 1 spray intranasal BID 03/02/22 08/30/23 History spray aerosol cromolyn 4 % eye drops 1 drp OPB QID PRN allergy or 03/02/22 08/30/23 History itching fluticasone furoate 200 1 ea inhalation DAILY 03/02/22 08/30/23 History mcg-vilanterol 25 mcg/dose inhalation powder (Breo Ellipta) fluticasone propionate 50 2 spray intranasal DAILY 03/02/22 08/30/23 History mcg/actuation nasal spray,suspension levocetirizine 5 mg tablet 5 mg PO DAILY PRN Allergy Symptoms 03/02/22 08/30/23 History metolazone 2.5 mg tablet 2.5 mg PO UD 03/02/22 08/30/23 History montelukast 10 mg tablet 10 mg PO HS 03/02/22 08/30/23 History multivitamin 1 tab PO DAILY 03/02/22 08/30/23 History acetaminophen 325 mg tablet 650 mg (2 x 325 mg) PO Q4H PRN 03/04/22 08/30/23 Rx pain #30 tabs lidocaine 4 % topical patch 1 patch topical DAILY #15 ea 03/04/22 08/30/23 Rx loratadine 10 mg tablet 10 mg PO DAILY PRN allergies 08/30/23 08/30/23 History tiotropium bromide 2.5 2 puff inhalation DAILY 08/30/23 08/30/23 History mcg/actuation mist for inhalation (Spiriva Respimat) Past Med/Surg History Medical History DMII (diabetes mellitus, type 2) CHF (congestive heart failure), NYHA class III Pulmonary blastomycosis Chronic respiratory failure Pulmonary HTN HTN (hypertension) Right-sided heart failure ANGELES (obstructive sleep apnea) Pulmonary sarcoidosis Depression Surgical History [place] [facility] [place]oscopy Hx of tonsillectomy Family History Other Cancer Sarcoidosis Social History Smoking Status: Never smoker Tobacco Type: Smokeless Tobacco (Dip or Chew) Second Hand Exposure: No; Do You Dip or Chew Tobacco: Yes; Hx Alcohol Use: Yes Alcohol type: beer Hx Substance Use: No Preferred Language: Romansh Communication Ability: Effective Talent Associate Required: No Beliefs That Will Affect Care: None marital status: Single Current Living Situation: Alone How many Children do You have: 0 Other Information That Helps Us Care for You: No Feels Safe at Home: Yes Safety Concerns: Feels Safe At This Time Assistive Devices: BiPap and Oxygen - Continuous Assistive Devices Comment: 2 LPM at rest, 4-5LPM with exertion, 4L with bipap Review of Systems Review of Systems: At least ten systems reviewed and negative except as noted in the HPI. Physical Exam Physical Exam: General Appearance: WD/WN, vitals as above, NAD, sitting up on side of bed, high flow o2, pleasant, some conversational dyspnea Head: normocephalic, atraumatic Eyes: normal inspection, PERRL, conjunctivae normal, anicteric sclerae ENT: external ear and nose normal, oropharynx normal Neck: normal visual inspection, trachea midline, no thyromegaly Respiratory: diminished breath sounds, diffuse wheezing throughout lung moser. Cardiovascular: regular rate, rhythm, normal peripheral pulses, no BLE edema. Vessels: no JVD Chest: normal inspection of chest Abdomen/GI: normal bowel sounds, soft, nontender, no hepatosplenomegaly Extremities/Musculoskeletal: no cyanosis or clubbing, extremities motor strength 5/5 Neurologic: PERRL, EOMI, accommodation nl, no face palsy, no dysarthria, CN's II-XI intact bilaterally and moves all extremities Psychiatric: A+Ox3, euthymic affect Skin: no rashes, normal color, warm/dry Results & Data Results & Data Vital Signs (Past 12 Hours) Vital Signs Temp Pulse Pulse Resp BP Pulse Ox O2 Del Method 08/30/23 17:32 88 08/30/23 17:00 88 16 95 High Flow Nasal Cannula, Nebulizer 08/30/23 16:50 86 18 96 08/30/23 16:40 86 25 H 94 08/30/23 16:30 84 15 95 08/30/23 16:22 95 High Flow Nasal Cannula 08/30/23 16:20 85 28 H 96 08/30/23 16:13 88 L Nasal Cannula 08/30/23 16:12 89 20 93 High Flow Nasal Cannula 08/30/23 16:10 84 30 H 94 08/30/23 16:00 91 H 23 93 08/30/23 15:50 89 21 93 08/30/23 15:40 99 H 31 H 87 L 08/30/23 15:30 91 H 20 92 08/30/23 15:20 96 H 24 91 08/30/23 15:15 37 C 97 H 19 99/78 L 90 Nasal Cannula 08/30/23 15:10 91 H 22 91 08/30/23 15:10 37 C 101 H 20 90 Nasal Cannula 08/30/23 15:00 105 H 19 08/30/23 14:52 103 H 15 90 O2 Flow Rate FiO2 08/30/23 17:32 08/30/23 17:00 08/30/23 16:50 08/30/23 16:40 08/30/23 16:30 08/30/23 16:22 20 50 08/30/23 16:20 08/30/23 16:13 6 08/30/23 16:12 20 50 08/30/23 16:10 08/30/23 16:00 08/30/23 15:50 08/30/23 15:40 08/30/23 15:30 08/30/23 15:20 08/30/23 15:15 6 08/30/23 15:10 08/30/23 15:10 6 08/30/23 15:00 08/30/23 14:52 Laboratory Results Short CBC 08/30/23 Range/Units 15:00 WBC 9.33 (4.8-10.8) K/ul Hgb 16.4 (14.0-18.0) g/dl Hct 49.9 (42.0-52.0) % Plt Count 298 (130-400) K/uL BMP 08/30/23 15:00 Sodium 136 Potassium 3.1 L Chloride 95 L Carbon Dioxide 30 BUN 14 Creatinine 1.14 Glucose 116 H Calcium 9.5 Diagnostic Findings Chest X-Ray 08/30/23 15:43 SINGLE VIEW CHEST CLINICAL HISTORY: Atypical chest pain. FINDINGS: An AP, portable, upright chest radiograph is compared to study dated 10/16/2019 and correlated with chest CT dated 03/02/2022. The heart is enlarged. There is pulmonary vascular congestion. Bilateral airspace opacities likely represent interstitial edema. There are layering pleural effusions with dependent consolidation. There are scattered calcified granulomas. Parenchymal scarring/fibrosis is noted throughout both lung. No pneumothorax is seen. The s keletal structures are osteopenic. The bony thorax is grossly intact. IMPRESSION: 1. Cardiomegaly with evidence of congestive failure. 2. Bilateral airspace opacities are similar to prior studies and may represent chronic scarring/fibrosis. Correlate clinically for evidence of a superimposed infectious/inflammatory pneumonitis or mild pulmonary edema. Radiographic follow-up is advised. 3. Small pleural effusions with dependent consolidation. These may be chronic. ACT 112: Negative or not required by law. Electronically signed by: Demetrius Pettit M.D. 08/30/2023 4:09 PM Code Status & VTE Plan VTE Prophylaxis Plan VTE Prophylaxis will be ordered: Yes Supervising Physician Co-Signing Physician Notes I have seen and examined the patient and have discussed the case with the provider above. I have reviewed the advanced practitioner's documentation, and I agree with, and take responsibility for that plan of care. 52-year-old man with chronic respiratory failure, pulmonary sarcoidosis and chronic right-sided heart failure presents with acute exacerbation of underlying lung disease secondary to parainfluenza infection. After initial therapies including bronchodilator therapy and steroids, he is feeling better. On exam he is hemodynamically stable and afebrile oxygenating 96% on high flow nasal cannula at a flow rate of 10 L/min. Pulmonary auscultation reveals scant wheezing throughout all lung moser in the posterior and anterior exam areas. Cardiac exam is unremarkable. Other physical exam findings as noted above. Procalcitonin was negative. Chest imaging reveals chronic underlying scarring and fibrosis. Patient did mention some upper respiratory symptoms such as postnasal drip and irritated throat. He continues on Flonase nasal spray. Continue steroid therapy, nebulized bronchodilator therapy and other supportive care including Mucinex and Flonase. Consult pulmonology. The patient is not fluid overloaded and IV diuretics will not be continued. Will continue his home torsemide instead. The patient is in agreement with this plan. Continue monitoring in PCU. DO Chaka
[2023-08-30 18:13] LABS: Troponin I High Sensitivity 19.2 pg/ml (0-20)
[2023-08-30 18:20] LABS: Magnesium 2.1 mg/dl (1.7-2.4)
[2023-08-30] MEDS ORDERED: methylPREDNISolone 125 MG/2 ML VIAL IV SCH (19:59)
[2023-08-30] MEDS ORDERED: POLYETHYLENE (MIRALAX) 17 GM PACK PO PRN (19:59)
[2023-08-30] MEDS ORDERED: ALBUTEROL HFA 8 GM INHALER INH PRN (19:59)
[2023-08-30] MEDS ORDERED: LORATADINE 10 MG TAB PO PRN (19:59)
[2023-08-30] MEDS ORDERED: ONDANSETRON INJ 2 MG/ML 2 ML VIAL IV PRN (19:59)
[2023-08-30] MEDS ORDERED: GLUCOSE 10 TAB/TUBE PO PRN (20:15)
[2023-08-30] MEDS ORDERED: CETIRIZINE HCL 10 MG TABLET PO PRN (20:15)
[2023-08-30] MEDS ORDERED: CARBOHYDRATES FOR HYPOGLYCEMIA PO PRN (20:15)
[2023-08-30] MEDS ORDERED: GLUCAGON FOR INJ 1 MG VIAL SQ PRN (20:15)
[2023-08-30] MEDS ORDERED: GLUCOSE 40% GEL 15 GM TUBE PO PRN (20:15)
[2023-08-30] MEDS ORDERED: DEXTROSE 50% 50 ML SYRINGE IV PRN (20:15)
[2023-08-30] MEDS: POTASSIUM CHLORIDE CRTAB 20 MEQ TABCR PO SCH (20:20)
[2023-08-30] MEDS: INSULIN ASPART PER UNIT CHARGE SC SCH (21:29)
[2023-08-30] MEDS: ALBUT/IPRATROP 3MG/0.5MG NEB 3 ML VIAL NEB SCH (21:35)
[2023-08-30] MEDS: methylPREDNISolone 40 MG in SYRINGE 0 ML IV SCH (21:40)
[2023-08-30] MEDS: ENOXAPARIN INJ 40 MG/0.4 ML SYR SQ SCH (21:40)
[2023-08-30] MEDS: MONTELUKAST SODIUM 10 MG TABLET PO SCH (21:41)
[2023-08-30] MEDS: POTASSIUM CHLORIDE CRTAB 20 MEQ TABCR PO ONE (21:41)
[2023-08-30] MEDS: SPIRONOLACTONE 25 MG TAB PO SCH (21:41)
[2023-08-30] MEDS: guaiFENesin 600 MG TABCR PO SCH (21:41)
--- NOTE | 2023-08-30 22:52 | Emergency Department Note ---
History of Present Illness General Chief Complaint: Shortness of Breath/Dyspnea Time Seen by Provider: 08/30/23 15:38 History of Present Illness Provider Complaint: shortness of breath Onset (ago): week(s) (1) Severity: similar to previous episodes (Patient states similar episodes happen with him every year at this time when he gets ill) Consistency/Duration: + progressively worsening Relieved By: + nothing Exacerbated By: + exertion and + coughing Context: + recent illness Known history of: COPD and other (Sarcoidosis) Associated symptoms: + cough, + wheezing and + sputum production; no chest pain, no pain with inspiration, no fever or no hemoptysis Related Data Home oxygen amount: 3 liters Home Medications Medication Instructions Recorded Confirmed Type aspirin 81 mg chewable tablet 81 mg PO DAILY 10/08/19 08/30/23 History (Claire Chewable Low Dose Aspirin) citalopram 20 mg tablet 20 mg PO DAILY 10/08/19 08/30/23 History digoxin 125 mcg (0.125 mg) tablet 125 mcg PO DAILY 10/08/19 08/30/23 History (Digitek) empagliflozin 25 mg tablet 25 mg PO DAILY 10/08/19 08/30/23 History (Jardiance) ferrous sulfate 325 mg (65 mg 325 mg PO QAM 10/08/19 08/30/23 History iron) tablet folic acid 1 mg tablet 1 mg PO DAILY 10/08/19 08/30/23 History losartan 25 mg tablet 25 mg PO DAILY 10/08/19 08/30/23 History metformin 500 mg tablet,extended 1,000 mg PO DAILY 10/08/19 08/30/23 History release 24 hr omeprazole 20 mg capsule,delayed 20 mg PO QAM 10/08/19 08/30/23 History release potassium chloride 20 mEq 20 meq PO BID 10/08/19 08/30/23 History tablet,extended release(part/cryst) semaglutide 1 mg/dose (2 mg/1.5 1 mg subcut WK 10/08/19 08/30/23 History mL) subcutaneous pen injector (Ozempic) spironolactone 25 mg tablet 25 mg PO TID 10/08/19 08/30/23 History tamsulosin 0.4 mg capsule 0.4 mg PO DAILY 10/08/19 08/30/23 History torsemide 20 mg tablet 80 mg PO BID 10/08/19 08/30/23 History albuterol sulfate 2.5 mg/3 mL 2.5 mg inhalation UD PRN Dyspnea 03/02/22 08/30/23 History (0.083 %) solution for nebulization albuterol sulfate 90 mcg/actuation 2 puff inhalation Q4 PRN Dyspnea 03/02/22 08/30/23 History aerosol inhaler ascorbic acid (vitamin C) 250 mg 500 - 750 mg PO DAILY 03/02/22 08/30/23 History tablet (Vitamin C) azelastine 137 mcg (0.1 %) nasal 1 spray intranasal BID 03/02/22 08/30/23 History spray aerosol cromolyn 4 % eye drops 1 drp OPB QID PRN allergy or 03/02/22 08/30/23 History itching fluticasone furoate 200 1 ea inhalation DAILY 03/02/22 08/30/23 History mcg-vilanterol 25 mcg/dose inhalation powder (Breo Ellipta) fluticasone propionate 50 2 spray intranasal DAILY 03/02/22 08/30/23 History mcg/actuation nasal spray,suspension levocetirizine 5 mg tablet 5 mg PO DAILY PRN Allergy Symptoms 03/02/22 08/30/23 History metolazone 2.5 mg tablet 2.5 mg PO UD 03/02/22 08/30/23 History montelukast 10 mg tablet 10 mg PO HS 03/02/22 08/30/23 History multivitamin 1 tab PO DAILY 03/02/22 08/30/23 History acetaminophen 325 mg tablet 650 mg (2 x 325 mg) PO Q4H PRN 03/04/22 08/30/23 Rx pain #30 tabs lidocaine 4 % topical patch 1 patch topical DAILY #15 ea 03/04/22 08/30/23 Rx loratadine 10 mg tablet 10 mg PO DAILY PRN allergies 08/30/23 08/30/23 History tiotropium bromide 2.5 2 puff inhalation DAILY 08/30/23 08/30/23 History mcg/actuation mist for inhalation (Spiriva Respimat) Allergies Allergy/AdvReac Type Severity Reaction Status Date / Time doxycycline AdvReac Severe Vomiting Verified 03/02/22 19:11 Past Med/Surg History Medical History DMII (diabetes mellitus, type 2) CHF (congestive heart failure), NYHA class III Pulmonary blastomycosis Chronic respiratory failure Pulmonary HTN HTN (hypertension) Right-sided heart failure ANGELSE (obstructive sleep apnea) Pulmonary sarcoidosis Depression Surgical History [place] [facility] [place]oscopy Hx of tonsillectomy Family History Other Cancer Sarcoidosis Social History Smoking Status: Never smoker Tobacco Type: Smokeless Tobacco (Dip or Chew) Second Hand Exposure: No; Do You Dip or Chew Tobacco: Yes; Hx Alcohol Use: Yes Alcohol type: beer Hx Substance Use: No Preferred Language: Kazakh Communication Ability: Effective Disability Insurance Hearing Officer Required: No Beliefs That Will Affect Care: None marital status: Single Current Living Situation: Alone How many Children do You have: 0 Other Information That Helps Us Care for You: No Feels Safe at Home: Yes Safety Concerns: Feels Safe At This Time Assistive Devices: BiPap and Oxygen - Continuous Assistive Devices Comment: 2 LPM at rest, 4-5LPM with exertion, 4L with bipap Physical Exam 2 Vital Signs: Vital Signs - 24 hr 08/30/23 14:52 08/30/23 15:00 08/30/23 15:10 Temperature 37 C Temperature Source Oral Pulse Rate 103 H 105 H 101 H Pulse Rate [Apical ] Pulse Rate from Sp O2 Sensor 103 H Pulse Rhythm [Apic al] Pulse Strength Normal Pulse Strength [Ap ical] Respiratory Rate 15 19 20 Respiratory Effort / Characteristics SOB on Exertion Respiratory Depth Shallow Respiratory Patter n Blood Pressure [Ri ght Arm] Blood Pressure Yuliya n [Right Arm] Pulse Oximetry 90 90 Oxygen Delivery Me thod Nasal Cannula Oxygen Flow Rate 6 Fraction of Inspir ed Oxygen SaO2/FiO2 Ratio Sepsis Recent Feve r Within 48 Hours No Sepsis New/Unexpla ined Change in Men poornima Status No Sepsis Action Take n by Nursing No Action Required Oxygen Flow Rate - Titration Fraction of Inspir ed Oxygen - Titrat ion Pulse Oximetry Pos t Tiitration 08/30/23 15:10 08/30/23 15:15 08/30/23 15:20 Temperature 37 C Temperature Source Oral Pulse Rate 91 H 96 H Pulse Rate [Apical ] 97 H Pulse Rate from Sp O2 Sensor 90 96 H Pulse Rhythm [Apic al] Regular Pulse Strength Pulse Strength [Ap ical] Normal Respiratory Rate 22 19 24 Respiratory Effort / Characteristics Non-Labored Sponta neous Respiratory Depth Normal Respiratory Patter n Regular Blood Pressure [Ri ght Arm] 99/78 L Blood Pressure Yuliya n [Right Arm] 85 Pulse Oximetry 91 90 91 Oxygen Delivery Me thod Nasal Cannula Oxygen Flow Rate 6 Fraction of Inspir ed Oxygen SaO2/FiO2 Ratio Sepsis Recent Feve r Within 48 Hours Sepsis New/Unexpla ined Change in Men poornima Status Sepsis Action Take n by Nursing Oxygen Flow Rate - Titration Fraction of Inspir ed Oxygen - Titrat ion Pulse Oximetry Pos t Tiitration 08/30/23 15:30 08/30/23 15:40 08/30/23 15:50 Temperature Temperature Source Pulse Rate 91 H 99 H 89 Pulse Rate [Apical ] Pulse Rate from Sp O2 Sensor 92 H 102 H 89 Pulse Rhythm [Apic al] Pulse Strength Pulse Strength [Ap ical] Respiratory Rate 20 31 H 21 Respiratory Effort / Characteristics Respiratory Depth Respiratory Patter n Blood Pressure [Ri ght Arm] Blood Pressure Yuliya n [Right Arm] Pulse Oximetry 92 87 L 93 Oxygen Delivery Me thod Oxygen Flow Rate Fraction of Inspir ed Oxygen SaO2/FiO2 Ratio Sepsis Recent Feve r Within 48 Hours Sepsis New/Unexpla ined Change in Men poornima Status Sepsis Action Take n by Nursing Oxygen Flow Rate - Titration Fraction of Inspir ed Oxygen - Titrat ion Pulse Oximetry Pos t Tiitration 08/30/23 16:00 08/30/23 16:10 08/30/23 16:12 Temperature Temperature Source Pulse Rate 91 H 84 Pulse Rate [Apical ] 89 Pulse Rate from Sp O2 Sensor 90 85 Pulse Rhythm [Apic al] Pulse Strength Pulse Strength [Ap ical] Respiratory Rate 23 30 H 20 Respiratory Effort / Characteristics Non-Labored Sponta neous Respiratory Depth Respiratory Patter n Blood Pressure [Ri ght Arm] Blood Pressure Yuliya n [Right Arm] Pulse Oximetry 93 94 93 Oxygen Delivery Me thod High Flow Nasal Ca nnula Oxygen Flow Rate 20 Fraction of Inspir ed Oxygen 50 SaO2/FiO2 Ratio Sepsis Recent Feve r Within 48 Hours Sepsis New/Unexpla ined Change in Men poornima Status Sepsis Action Take n by Nursing Oxygen Flow Rate - Titration Fraction of Inspir ed Oxygen - Titrat ion Pulse Oximetry Pos t Tiitration 08/30/23 16:13 08/30/23 16:20 08/30/23 16:22 Temperature Temperature Source Pulse Rate 85 Pulse Rate [Apical ] Pulse Rate from Sp O2 Sensor 87 Pulse Rhythm [Apic al] Pulse Strength Pulse Strength [Ap ical] Respiratory Rate 28 H Respiratory Effort / Characteristics Respiratory Depth Respiratory Patter n Blood Pressure [Ri ght Arm] Blood Pressure Yuliya n [Right Arm] Pulse Oximetry 88 L 96 95 Oxygen Delivery Me thod Nasal Cannula High Flow Nasal Ca nnula Oxygen Flow Rate 6 20 Fraction of Inspir ed Oxygen 50 SaO2/FiO2 Ratio 190 Sepsis Recent Feve r Within 48 Hours Sepsis New/Unexpla ined Change in Men poornima Status Sepsis Action Take n by Nursing Oxygen Flow Rate - Titration 20 Fraction of Inspir ed Oxygen - Titrat ion 50 Pulse Oximetry Pos t Tiitration 96 08/30/23 16:30 08/30/23 16:40 08/30/23 16:50 Temperature Temperature Source Pulse Rate 84 86 86 Pulse Rate [Apical ] Pulse Rate from Sp O2 Sensor 84 90 86 Pulse Rhythm [Apic al] Pulse Strength Pulse Strength [Ap ical] Respiratory Rate 15 25 H 18 Respiratory Effort / Characteristics Respiratory Depth Respiratory Patter n Blood Pressure [Ri ght Arm] Blood Pressure Yuliya n [Right Arm] Pulse Oximetry 95 94 96 Oxygen Delivery Me thod Oxygen Flow Rate Fraction of Inspir ed Oxygen SaO2/FiO2 Ratio Sepsis Recent Feve r Within 48 Hours Sepsis New/Unexpla ined Change in Men poornima Status Sepsis Action Take n by Nursing Oxygen Flow Rate - Titration Fraction of Inspir ed Oxygen - Titrat ion Pulse Oximetry Pos t Tiitration 08/30/23 17:00 08/30/23 17:10 08/30/23 17:20 Temperature Temperature Source Pulse Rate 88 93 H 88 Pulse Rate [Apical ] Pulse Rate from Sp O2 Sensor 87 92 H 88 Pulse Rhythm [Apic al] Pulse Strength Pulse Strength [Ap ical] Respiratory Rate 16 21 31 H Respiratory Effort / Characteristics Respiratory Depth Respiratory Patter n Blood Pressure [Ri ght Arm] Blood Pressure Yuliya n [Right Arm] Pulse Oximetry 95 95 95 Oxygen Delivery Me thod High Flow Nasal Ca nnula Nebulizer Oxygen Flow Rate Fraction of Inspir ed Oxygen SaO2/FiO2 Ratio Sepsis Recent Feve r Within 48 Hours Sepsis New/Unexpla ined Change in Men poornima Status Sepsis Action Take n by Nursing Oxygen Flow Rate - Titration Fraction of Inspir ed Oxygen - Titrat ion Pulse Oximetry Pos t Tiitration Physical Exam: Physical Exam GENERAL: oriented to person, place, and time. appears well-developed and well- nourished. HENT: Exam performed. - Head: Normocephalic and atraumatic. EYES: Conjunctivae and EOM are normal. Right eye exhibits no discharge. Left eye exhibits no discharge. No scleral icterus. NECK: Normal range of motion. Neck supple. No JVD present. CV: Normal rate, regular rhythm, normal heart sounds and intact distal pulses. There is no peripheral edema. Palpable radial pulses bue. PULM/CHEST: Diffuse expiratory wheezes bilaterally. ABD: The abdomen is soft. There is no tenderness. NEURO: Motor and sensation grossly intact. SKIN: Skin is warm and dry. He is not diaphoretic. PSYCH: normal mood and affect. Behavior is normal. Judgment and thought content normal. Course Course 1538: The patient was evaluated in room AA. A complete history and physical exam was performed Cardiac monitoring: An order was placed for continuous cardiac monitoring. The monitor shows a rate of 90 with sinus rhythm interpreted by me Patient is on oxygen 6 L nasal cannula which was placed by nursing. Patient's oxygen saturation is ranging from 85 to 89%. Patient will be started on Vapotherm and given hour-long DuoNeb treatment given his diffuse expiratory wheezes and his lower than baseline oxygen saturation. 1654: Vital signs stable on Vapotherm. Imaging shows cardiomegaly and cephalization. Lasix ordered for the patient. VBG shows a venous pCO2 of 46. Patient will be admitted to the [facility] team. Administered Medications Albuterol (Albut/Ipratrop 3mg/0.5mg Neb 3 Ml Vial) 3 ml NEB QIDR YAA; Protocol Stop: 09/29/23 19:24 Last Admin: 08/30/23 21:35 Dose: 3 ml Documented By: DAVID Enoxaparin Sodium (Enoxaparin Inj 40 Mg/0.4 Ml Syr) 40 mg SQ Q24H YAA Stop: 09/29/23 21:14 Last Admin: 08/30/23 21:40 Dose: 40 mg Documented By: LOUIE Methylprednisolone 40 mg/ (Syringe) 0.64 mls @ 1.5 mls/min IV Q8H YAA Stop: 09/29/23 19:58 Last Admin: 08/30/23 21:40 Dose: 1.5 mls/min Documented By: LOUIE Insulin Aspart (Insulin Aspart Per Unit Charge) 0 units SC ACHS YAA Stop: 09/29/23 20:59 Last Admin: 08/30/23 21:29 Dose: Not Given Documented By: LOUIE Miscellaneous (Remove Lidoderm Patch) 1 each N/A DAILY@2100 YAA Stop: 09/29/23 20:59 Last Admin: 08/30/23 21:16 Dose: Not Given Documented By: LOUIE Montelukast Sodium (Montelukast Sodium 10 Mg Tablet) 10 mg PO HS YAA Stop: 09/29/23 20:59 Last Admin: 08/30/23 21:41 Dose: 10 mg Documented By: LOUIE Potassium Chloride (Potassium Chloride Crtab 20 Meq Tabcr) 20 meq PO BID YAA Stop: 09/29/23 20:59 Last Admin: 08/30/23 20:20 Dose: 20 meq Documented By: LOUIE Spironolactone (Spironolactone 25 Mg Tab) 25 mg PO TID YAA Stop: 09/29/23 20:59 Last Admin: 08/30/23 21:41 Dose: 25 mg Documented By: LOUIE Discontinued Medications Albuterol (Albut/Ipratrop 3mg/0.5mg Neb 3 Ml Vial) 12 ml NEB ONE ONE; Protocol Stop: 08/30/23 15:44 Last Admin: 08/30/23 16:09 Dose: 12 ml Documented By: YUNIOR Furosemide (Furosemide 40 Mg/4 Ml Vial) 40 mg IV ONE ONE Stop: 08/30/23 16:53 Last Admin: 08/30/23 17:05 Dose: 40 mg Documented By: GRACIELA Guaifenesin (Guaifenesin 600 Mg Tabcr) 600 mg PO Q12 YAA Stop: 08/30/23 20:59 Last Admin: 08/30/23 21:41 Dose: 600 mg Documented By: LOUIE Methylprednisolone (Methylprednisolone 125 Mg/2 Ml Vial) 125 mg IV NOW STA Stop: 08/30/23 15:44 Last Admin: 08/30/23 16:08 Dose: 125 mg Documented By: ALENA Potassium Chloride (Potassium Chloride 10 Meq Tabcr) 40 meq PO NOW STA Stop: 08/30/23 16:53 Last Admin: 08/30/23 17:05 Dose: 40 meq Documented By: GRACIELA Potassium Chloride (Potassium Chloride Crtab 20 Meq Tabcr) 20 meq PO ONE ONE Stop: 08/30/23 22:01 Last Admin: 08/30/23 21:41 Dose: 20 meq Documented By: LOUIE Medical Decision Making Laboratory Data Attestation: I reviewed the patient's lab results. 08/30/23 15:00 08/30/23 15:00 Lab Results 08/30/23 08/30/23 Range/Units 15:00 16:40 WBC 9.33 (4.8-10.8) K/ul RBC 5.31 (4.70-6.10) M/uL Hgb 16.4 (14.0-18.0) g/dl Hct 49.9 (42.0-52.0) % MCV 94.0 (80.0-100.0) fL MCH 30.9 (25.0-34.0) pg MCHC 32.9 (32.0-36.0) g/dL RDW Std Deviation 48.6 H (36.4-46.3) fL RDW Coeff of María Elena 14.2 (11.5-14.5) % Plt Count 298 (130-400) K/uL MPV 8.9 L (9.4-12.4) fL Immature Gran % (Auto) 0.3 % Neut % (Auto) 79.4 % Lymph % (Auto) 8.7 % [place] % (Auto) 9.6 % Eos % (Auto) 1.6 % Baso % (Auto) 0.4 % Neut # (Auto) 7.40 H (1.40-6.50) K/uL Lymph # (Auto) 0.81 L (1.20-3.40) K/uL [place] # (Auto) 0.90 H (0.11-0.59) K/uL Eos # (Auto) 0.15 (0.00-0.50) K/uL Baso # (Auto) 0.04 (0.00-0.20) K/uL Immature Gran # (Auto) 0.03 (0.01-0.20) K/uL VBG pH 7.49 H (7.36-7.41) VBG pCO2 46 (38-50) mmHg VBG pO2 166 mmHg VBG HCO3 35 mmol/L VBG O2 Saturation 99.4 % VBG Base Excess 10.3 mEq/L Sodium 136 (136-145) mmol/L Potassium 3.1 L (3.5-5.1) mmol/L Chloride 95 L (98-107) mmol/L Carbon Dioxide 30 (21-32) mmol/L Anion Gap 11 (3-11) BUN 14 (6-23) mg/dl Creatinine 1.14 (0.6-1.4) mg/dl Est Cr Clr Drug Dosing 89.7 ml/min Est GFR ( Amer) 84.6 ml/min Est GFR (Non-Af Amer) 73.0 ml/min BUN/Creatinine Ratio 12.3 (10-20) Glucose 116 H (70-99(Fasting)) mg/dl Calcium 9.5 (8.6-10.3) mg/dl Troponin I High Sens 21.6 H (0-20) pg/ml B-Natriuretic Peptide 34 (0-100) pg/ml Lipase 31 (11-82) U/L Procalcitonin 0.07 (0-0.5) ng/ml Imaging Data Attestation: I personally reviewed and interpreted this imaging study as follows: My Impression: Chest x-ray: Cardiomegaly with cephalization Radiologist's Impression: Chest X-Ray 08/30/23 15:43 SINGLE VIEW CHEST CLINICAL HISTORY: Atypical chest pain. FINDINGS: An AP, portable, upright chest radiograph is compared to study dated 10/16/2019 and correlated with chest CT dated 03/02/2022. The heart is enlarged. There is pulmonary vascular congestion. Bilateral airspace opacities likely represent interstitial edema. There are layering pleural effusions with dependent consolidation. There are scattered calcified granulomas. Parenchymal scarring/fibrosis is noted throughout both lung. No pneumothorax is seen. The skeletal structures are osteopenic. The bony thorax is grossly intact. IMPRESSION: 1. Cardiomegaly with evidence of congestive failure. 2. Bilateral airspace opacities are similar to prior studies and may represent chronic scarring/fibrosis. Correlate clinically for evidence of a superimposed infectious/inflammatory pneumonitis or mild pulmonary edema. Radiographic follow-up is advised. 3. Small pleural effusions with dependent consolidation. These may be chronic. ACT 112: Negative or not required by law. Electronically signed by: Demetrius Pettit M.D. 08/30/2023 4:09 PM ECG Data Attestation: I personally reviewed and interpreted this ECG as follows: Interpretation: Sinus rhythm with a rate of 86. ME QRS and QTc intervals are within normal limits. Right bundle branch block present. No ST elevation or ST depression. [facility] Narrative 1538: The patient was evaluated in room AA. A complete history and physical exam was performed Cardiac monitoring: An order was placed for continuous cardiac monitoring. The monitor shows a rate of 90 with sinus rhythm interpreted by me Patient is on oxygen 6 L nasal cannula which was placed by nursing. Patient's oxygen saturation is ranging from 85 to 89%. Patient will be started on Vapotherm and given hour-long DuoNeb treatment given his diffuse expiratory wheezes and his lower than baseline oxygen saturation. 1654: Vital signs stable on Vapotherm. Imaging shows cardiomegaly and cephalization. Lasix ordered for the patient. VBG shows a venous pCO2 of 46. Patient will be admitted to the [facility] team. Impression & Plan Hypoxia, COPD exacerbation, Fluid overload Discharge Plan Visit Data Chief Complaint: Shortness of Breath/Dyspnea ED Provider: Naga Abraham Discharge Problem: Hypoxia, COPD exacerbation, Fluid overload Patient Disposition: Admitted As Inpatient Discharge Instructions Interventions: ED Discharge Assessment Last Done: 08/30/23 19:42
--- OUTSIDE RECORDS SUMMARY | 2023-08-31 04:20 | External Medical Summary | Summary of Care ---
Author Name Unknown Organization [facility] Address [address] [place] [address] Phone [phone] Care Team Providers Care Sap Consultant Name Role Phone Andrzej Downing MD Primary Care Provider [phone] Reason for Visit * Reason Onset Date Comments Advice 08/29/2023 Encounter Details Date Type Department Care Team (Late st Contact Info) Description 08/29/2023 Telephone Access Center, [place] [facility] [address] [facility] *DO NOT REMOVE THIS DEPARTMENT* [place], [place] [id number] Services, Scheduling [address] [place] [address] Advice Allergies Active Allergy Reactions Criticality Noted Date Comments Doxycycline Other (Please comment) Low 07/25/2013 Headache documented as of this encounter (statuses as of 08/29/2023) Medications Medication Sig Dispensed Refills Start Date End Date Status NEBULIZER COMPRESSOR MISCIndications:Sh ortness of breath,Wheezing,Sa rcoidosis Use as directed 1 Each 1 04/19/2011 Active NEBULIZER/TUBING/M OUTHPIECE KITIndications:[place] rtness of breath,Wheezing,Sa rcoidosis use with nebs 1 Kit 11 04/19/2011 Active ASPIRIN 81 MG PO TABS 1 tablet by mouth daily 0 Active Misc. Devices MISC Use as directed. BIPAP at night 0 Active Glucose Blood (ONETOUCH VERIO) STRP Use up to 4 times a day E11.9 100 Strip 11 03/02/2018 Active ONETOUCH ULTRASOFT LANCETS MISC Use as directed 4 times a day as needed for Hyperglycemia (high sugar) or Hypoglycemia (low sugar). Use up to four times a day as directed 1 Box Dosing Unit 11 03/02/2018 Active DIURETIC TITRATION PLAN If no improvement on day 3, contact heart failure managing provider or [facility]. 1 Each 0 05/12/2018 Active Fluticasone Propionate 50 MCG/ACT Nasal Suspension (FLONASE)Indicatio ns:Nasal polyp Administer 2 Sprays into each nostril daily. Use in morning 48 g 3 05/27/2020 Active Additional Information Patient taking differently:2 [place] Each Nostril Daily(AM),Use in morning as needed, Indications: allergies, Reported on 04/22/2022 Azelastine HCl 0.1 % Nasal SolutionIndication s:Seasonal allergic rhinitis due to pollen Administer 1 [place] into nostril 2 times a day. 30 mL 12 09/12/2020 Active Additional Information Patient taking differently:1 [place] NasalBID PRN, Reported on 04/22/2022 Cromolyn Sodium 4 % Ophthalmic Solution (Crolom)Indication s:Seasonal allergic rhinitis due to pollen Instill 1 Drop into both eyes 4 times a day as needed for Allergies or Itching. 10 mL 1 09/12/2020 Active Spiriva Respimat 2.5 MCG/ACT Inhalation Aerosol Solution (Tiotropium [place] Monohydrate)Indica tions:breathing Inhale by mouth 2 Puffs in the morning. 4 g 3 01/20/2022 Active oxygen IN GASIndications:Sev ere obstructive sleep apnea,Pulmonary hypertension (HCC),Sarcoidosis of lung (HCC) 2 LPM during rest, 3 LPM while ambulating, 4 LPM through Trilogy during sleep 1 Each 0 07/21/2022 Active Breo Ellipta 200-25 MCG/ACT Inhalation Aerosol Powder Breath Activated (fluticasone furoate-vilanterol ) inhale 1 puff by mouth and INTO THE LUNGS every morning 60 Blister Dosing Unit 3 07/26/2022 Active Losartan Potassium 25 MG Oral Tablet (Cozaar)Indication s:Chronic right-sided heart failure (HCC),Essential hypertension with goal blood pressure less than 130/80 take 1 tablet by mouth daily 90 Tablet 3 09/13/2022 Active Montelukast Sodium 10 MG Oral Tablet (Singulair)Indicat ions:Increased nasal secretion take 1 tablet by mouth at bedtime 90 Tablet 3 11/03/2022 Active Potassium Chloride Bety ER 20 MEQ Oral Tablet Extended ReleaseIndications :Hypokalemia take 1 tablet by mouth twice a day 180 Tablet 1 12/15/2022 Active Citalopram Hydrobromide 20 MG Oral Tablet (CeleXA)Indication s:Major depressive disorder TAKE 1 TABLET BY MOUTH ONCE DAILY 90 Tablet 2 12/24/2022 Active Omeprazole 20 MG Oral Capsule Delayed Release (PriLOSEC) take 1 capsule by mouth every morning before FIRST MEAL OF THE DAY 90 Capsule 2 01/10/2023 Active Tamsulosin HCl 0.4 MG Oral Capsule (Flomax) take 1 capsule by mouth once daily 90 Capsule 1 03/21/2023 Active metFORMIN HCl ER 500 MG Oral Tablet Extended Release 24 Hour (Glucophage XR) take 2 tablets by mouth ONCE daily 180 Tablet 1 04/06/2023 Active Empagliflozin 25 MG Oral Tablet (Jardiance)Indicat ions:Type 2 diabetes mellitus with hemoglobin A1c goal of less than 7.0% (HCC) take 1 tablet by mouth once daily 90 Tablet 1 04/06/2023 Active metOLazone 2.5 MG Oral Tablet (Zaroxolyn)Indicat ions:Hypertensive heart disease with chronic right-sided congestive heart failure (HCC) Take 2.5 mg daily for three days when weight increases 3 pounds in 24 hours or 5 pounds in one week. 30 Tablet 0 05/27/2023 Active Ipratropium-Alb[place] rol 0.5-2.5 (3) MG/3ML Inhalation Solution (Duoneb)Indication s:Shortness of breath,Chronic obstructive pulmonary disease with acute exacerbation (HCC),Pulmonary hypertension associated with sarcoidosis (HCC),Chronic respiratory failure with hypoxia and hypercapnia (HCC),Oxygen dependent Inhale 3 mL via nebulizer every 6 hours as needed for Wheezing or Shortness of Breath (cough). 21 mL 1 06/09/2023 Active Loratadine 10 MG Oral Tablet (Claritin)Indicati ons:Shortness of breath,Chronic obstructive pulmonary disease with acute exacerbation (HCC),Pulmonary hypertension associated with sarcoidosis (HCC),Chronic respiratory failure with hypoxia and hypercapnia (HCC),Oxygen dependent Take 1 Tablet by mouth in the morning. 30 Tablet 5 06/09/2023 Active FeroSul 325 (65 Fe) MG Oral Tablet (Ferrous Sulfate)Indication s:Iron deficiency anemia secondary to inadequate dietary iron intake TAKE 1 TABLET BY MOUTH ONCE DAILY WITH BREAKFAST 90 Tablet 1 06/10/2023 Active Digoxin 125 MCG Oral Tablet (Lanoxin) Take 1 Tablet by mouth in the morning. 90 Tablet 3 06/09/2023 Active Spironolactone 25 MG Oral Tablet (Aldactone) TAKE 1 TABLET BY MOUTH THREE TIMES A DAY 270 Tablet 1 06/14/2023 Active Folic Acid 1 MG Oral Tablet Take 1 Tablet by mouth in the morning. 90 Tablet 3 06/14/2023 Active Torsemide 20 MG Oral Tablet (Demadex)Indicatio ns:Chronic right-sided heart failure (HCC),Congestive heart failure with LV diastolic dysfunction, NYHA class 3 (HCC) take 4 tablets by mouth twice a day 240 Tablet 11 06/14/2023 Active Ozempic (1 MG/DOSE) 4 MG/3ML Subcutaneous Solution Pen-injector (Semaglutide (1 MG/DOSE))Indicatio ns:Type 2 diabetes mellitus with hemoglobin A1c goal of less than 7.0% ([facility]) INJECT 1MG UNDER THE SKIN ONCE WEEKLY 3 mL 06/14/2023 Active Albuterol Sulfate HFA 108 (90 Base) MCG/ACT Inhalation Aerosol Solution INHALE 2 PUFFS BY MOUTH EVERY 4 HOURS NEEDED FOR COUGH, SHORTNESS OF BREATH OR WHEEZING. 18 g 5 07/02/2023 Active Hospital, Clinic, or Other Facility Administered Medication Ordered Dose Route Frequency Start Date End Date Status albuterol sulfate (PROVENTIL) (2.5 MG/3ML) 0.083% inhalation solution 2.5 mgIndications:Pulmonary hypertension (HCC),Chronic right-sided heart failure (HCC),Sarcoidosis,Oxygen dependent 2.5 mg NEBULIZER Q4H PRN 06/03/2017 Active documented as of this encounter (statuses as of 08/29/2023) Active Problems Problem Noted Date Diagnosed Date Chronic obstructive pulmonary disease 09/30/2022 Obesity hypoventilation syndrome 09/30/2022 Hypertensive heart disease w ith chronic right-sided congestive heart failure 09/30/2022 Pulmonary hypertension due to left heart disease 09/30/2022 Pulmonary hypertension due to lung diseases and hypoxia 09/30/2022 Chronic respiratory failure with hypoxia and hyp ercapnia 02/24/2021 History of 2019 novel coronavirus disease (COVID -19) 10/27/2019 Gastroesophageal reflux disease without esophagi tis 08/03/2019 Chronic cor pulmonale 08/03/2019 Essential hypertension with goal blood pressure less than 130/80 08/03/2019 Oxygen dependent 03/19/2018 Depression, major, recurrent, in remission 03/19 Pulmonary hypertension associated with sarcoidos is 03/14/2018 Type 2 diabetes mellitus wit h hemoglobin A1c goal of less than 7.0% 02/24/2018 History of Clostridium difficile colitis 018 Sarcoidosis of lung 05/17/2017 Overview: MXT started August 2011, max 17.5 mg weekly Calculated total dose MTX: Jun 20, 2014 - 2,483 mg Congestive heart failure wit h LV diastolic dysfunction, NYHA class 3 01/16/2016 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 Chronic right-sided heart failure 09/07/2012 Severe obstructive sleep apnea 12/24/2011 Overview: 09/04/12 BIPAP 15/9, 6 LPM -- low 84%, mean 92.7%, <89% 5:12 mins, CIRILO 5.1 09/01/12 -- BIPAP auto 9-15 cwp 12/10/11 PSG -- AHI 91.5, significant hypoxemia [facility] documented as of this encounter (statuses as of 08/29/2023) Resolved Problems Problem Noted Date Diagnosed Date Resolved Date Polyneuropathy in other dise ases classified elsewhere 08/03/2019 07/07/2020 Class 2 severe obesity due t o excess calories with serious comorbidity and body mass index (BMI) of 39.0 to 39.9 in adult 08/03/2019 2 Current chronic use of systemic steroids 01/21/2019 09/28/2021 Morbid obesity with body mas s index (BMI) of 40.0 to 44.9 in adult 06/29/2018 08/03/2019 Sarcoidosis, stage 2 03/19/2018 019 BMI 40.0-44.9, adult 03/19/2018 019 Chronic hypoxemic respiratory failure 03/14/2018 07/02/2018 Obesity, morbid (more than 1 00 lbs over ideal weight or BMI > 40) 01/05/2017 04/21/2018 HTN, goal below 130/80 08/19/201601/05 Body mass index (BMI) of 50-59.9 in adult 06/22/2016 03/10/2017 Overview: Per Obesity protocol #1 Encounter for long-term (cur rent) use of medications 04/07/2016 07/02/2018 Essential hypertension with goal blood pressure less than 130/80 02/26/2016 01/05/2017 Pneumothorax 01/16/2016 03/19/2018 Pulmonary blastomycosis 08/14/2014 1002/2018 C. 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 Family history of diabetes mellitus 10/21/2008 11/05/2016 Family history of cardiovascular disease 10/21/2008 11/05/2016 Asthma, allergic 10/21/2008 12/01/2009 Acute bronchitis, antibiotics not indicated 07/27/2005 08/01/2008 Overview: Resolved per Benign Acute Dxs Protocol #3 ACUTE SINUSITIS NOS 07/27/2005 07/25/19 09 Overview: Resolved per Benign Acute Dxs Protocol #3 ACUTE URI NOS 07/27/2005 07/25/2008 Overview: Resolved per Benign Acute Dxs Protocol #3 Cough 07/27/2005 12/24/2009 Major depressive disorder 03/22/2000 Overview: ICD-10 update of inactive term Acute on chronic respiratory failure with hypoxia 05/27/2020 COVID-19 01/06/2020 Pulmonary hypertension 05/27 documented as of this encounter (statuses as of 08/29/2023) Immunizations Name Administration Dates Next Due COVID-19 mRNA, LNP-s, No Pre serve, 2-Dose Series (Moderna) 08/08/2020,07/11/2020 PPD 08/29/2012,08/24/2011 Pneumococcal Conjugate Vacc, 13 Valent (Prevnar) 05/20/2017 Pneumococcal Polysaccharide PPV23 (Pneumovax) 04/19/2014,04/14/2009 Seasonal Influenza Virus Vac cine, Unspecified Formulation 02/28/2019,04/10/2018,05/20/2017,03/06,04/19/2014 Seasonal Influenza, PF, 6 M & above, IM , (FluLaval or Fluzone) 04/04/2023,03/12/2022,02/06/2021,03/05,02/28/2019,04/10/2018 Seasonal Influenza, Quadriva lent, No Preserve, IM 05/20/2017,04/21/2015 Seasonal Influenza, Split, I IV3, With Preserve, Inj 04/19/2014,05/02/2013(Deferred: Patient Refused) TD, Preservative Free 09/18/2018 TDAP (age 11 and older)(Adacel) 09/11/2008 documented as of this encounter Social History Tobacco Use Types Packs/Day Years Used Date Smoking Tobacco: Never Cigarettes 28 Smokeless Tobacco: Current Snuff Comments:Currently using bet ween 1/2 can to 3/4 can of snuff/day Alcohol Use Standard Drinks/Week Comments Yes 0 (1 standard drink = 0.6 oz pur e alcohol) 1-2 every couple of weeks PHQ-2 Answer Date Recorded PHQ Adult Total Score 0 09/30/2022 Hunger Vital Sign Answer Date Recorded Within the past 12 months, y ou worried that your food would run out before you got the money to buy more. Never true 10/01/19 23 Within the past 12 months, t he food you bought just didn't last and you didn't have money to get more. Never true 09/30/2022 Sex and Gender Information Value Date Recorded Sex Assigned at Not on file Gender Identity Not on file Sexual Orientation Not on file Job Start Date Occupation Industry Not on file Not on file Not on file documented as of this encounter Functional Status Functional Status Response Date of Assess ment Are you deaf or do you have serious difficulty h earing? No 07/21/2014 Are you blind or do you have serious difficulty seeing, even when wearing glasses? No 07/21/2014 Do you have serious difficul ty walking or climbing stairs? (5 years old or older) Yes 07/21/2014 Do you have difficulty dress ing or bathing? (5 years old or older) No 07/21/2014 Because of a physical, menta l, or emotional condition, do you have difficulty doing errands alone such as visiting a doctor s office or shopping? (15 years old or older) No 07/21/19 15 Cognitive Status Response Date of Assessm ent Because of a physical, menta l, or emotional condition, do you have serious difficulty concentrating, remembering, or making decisions? (5 years old or older) No 07/21/2014 documented as of this encounter Miscellaneous Notes * Telephone Encounter - [facility] - 08/29/2023 4:43 PM EDT Patient call in stating that [facility] will send a prescription to Jyotsna DECKER for her to authorize new supplies for thi patient , patient state that if he needs to be contacted, best phone number is [phone]. Please advice Thank you scheduling services documented in this encounter Plan of Treatment Upcoming Encounters Date Type Department Care Team (Late st Contact Info) Description 08/31/2023 2:00 PM EDT Cardiac Studies Cardiac Studies, [facility] [address] [facility] [place] [address] 09/07/2023 1:30 PM EDT Office Visit Cardiology, [facility] [address] [facility] [place] [address] Beni Watson DO [address] [place] [address] 10/06/2023 2:20 PM EDT Office Visit [facility] [address] [place] [address] Andrzej Downing MD [address] [place] [address] 11/16/2023 11:30 AM EDT Imaging Radiology, [address] [place] [address] 11/16/2023 1:00 PM EDT Office Visit Rheumatology [address] [place] [address] Faustino Delgado MD [address] [place] [address] [place] [address] 02/15/2024 2:30 PM EDT Nutrition Services Nutrition & Weight Management, [facility] [address] [place] [address] Louise Zarate RDN [address] [place] [address] Health Maintenance Due Date Last Done Comments Alpha-1 Antitrypsin 10/27/1987 Hepatitis B (1 of 3 - 19+ 3-dose series) 1988 Cologuard 2014 Colonoscopy 2014 Colorectal Cancer Screening 2014 Fecal Occult Blood Test 2014 Sigmoidoscopy 2014 Zoster Vaccines (1 of 2) 10/27/2019 *BISPHONATE OR OTHER ACCEPTABLE MEDICATION NEEDED FOR OSTEOPOROSIS (REFER TO SMARTSET #1146) 07/11/2021 DIG LEVEL FOR MEDICATION MONITORING YEARLY 09/02/2021 09/02/2020, 07/12/2019, 06/02/2018 Diabetic Foot Exam 01/02/2022 01/02/2021, 11/08/2018 COVID-19 Vaccine ( season) 2023 08/08/2020, 07/11/2020 DXA Scan 02/17/2023 02/17/2021, 08/0 10/2018, 01/05/2017, Additional history exists HbA1c 03/25/2023 09/23/2022, 03/07, 09/03/2021, Additional history exists Albumin/Creatinine Ratio 03/30/2023 03/30/2022, 05/07 B-12 09/24/2023 09/23/2022, 090 07/2020, 09/02/2020, Additional history exists GFR 09/24/2023 09/23/2022, 03/07, 09/03/2021, Additional history exists Depression Screening 10/01/2023 09/30/2022 Diabetic Eye Exam 10/15/2023 10/14/2022, , 09/24/2021, Additional history exists O2 ASSESSMENT COMPLETED IN PAST YEAR FOR COPD 06/09/2024 06/09/2023 Lipid Panel 03/30/2027 03/30/2022, 08/06, 07/21/2020, Additional history exists DTaP,Tdap,and Td Vaccines (3 - Td or Tdap) 09/18/2028 09/18/2018, 09/11/2008 Pneumococcal Vaccine: Pediatrics (0 to 5 Years) and At-Risk Patients (6 to 64 Years) (3 of 3 - PPSV23 or PCV20) 2034 05/20/2017, 04/19/2014, 04/14/2009 VITAMIN D LEVEL ONCE IN A LIFETIME-USE SMARTSET# [id number] Completed 09/23/2022, 09/03/2021, 08/30/2018, Additional history exists Influenza Vaccine (FLU shot) Completed , 03/12/2022, 02/06/2021, Additional history exists GARDASIL-HPV IMMUNIZATION SERIES Aged Out No longer eligible based on patient's age to complete this topic MENINGOCOCCAL (MENACTRA/MENVEO) Aged Out No longer eligible based on patient's age to complete this topic documented as of this encounter Medical Devices Not on filedocumented as of this encounter Advance Directives Latest Code Status on File Code Status Date Activated Date Inactivated Comments Full Code 10/16/2019 3:21 PM 10/23/2019 11:17 PM This order reflects the patients wishes and were consensually agreed upon. Code Status History Code Status Date Activated Date Inactivated Comments Full Code 07/21/2014 12:09 PM 08/14/2014 3:41 PM This order reflects the patients wishes and were consensually agreed upon. Question Answer Comments Discussion of Advance Directives occurred with: Patient Does the patient have a Living Will? No Does the patient have Health Care Power of Medical Office Supervisor? No Care Teams Sap Consultant Relationship Specialty Start Date End Date Andrzej Downing MD [address] [place] [address] PCP - General Family Medicine 03/20/19 documented as of this encounter
--- OUTSIDE RECORDS SUMMARY | 2023-08-31 04:20 | External Medical Summary | Summary of Care ---
Author Name Unknown Organization [facility] Address [address] [place] [address] Phone [phone] Care Team Providers Care Rental Sales Representative Name Role Phone Andrzej Downing MD Primary Care Provider [phone] Encounter Details Date Type Department Care Team (Late st Contact Info) Description 08/10/2023 Orders Only PATIENT PORTAL DO NOT DELETE THIS DEPT USED BY [place] [phone] Allergies Active Allergy Reactions Criticality Noted Date Comments Doxycycline Other (Please comment) Low 07/25/2013 Headache documented as of this encounter (statuses as of 08/10/2023) Medications Medication Sig Dispensed Refills Start Date [...] 4 times a day E11.9 100 Strip 03/02/2018 Active ONETOUCH ULTRASOFT LANCETS MISC Use as directed 4 times a day as needed for Hyperglycemia (high sugar) or Hypoglycemia (low sugar). Use up to four times a day as directed 1 Box Dosing Unit 03/02/2018 Active DIURETIC TITRATION PLAN If no improvement on day 3, contact heart failure managing provider or [facility]. 1 Each 0 05/12/2018 Active Fluticasone Propionate 50 MCG/ACT Nasal Suspension (FLONASE)Indicatio ns:Nasal polyp Administer 2 Sprays into each nostril daily. Use in morning 48 g 3 05/27/2020 Active Additional Information Patient taking differently:2 [place] Each Nostril Daily(AM),Use in morning as needed, Indications: allergies, Reported on 04/22/2022 Azelastine HCl 0.1 % Nasal SolutionIndication s:Seasonal allergic rhinitis due to pollen Administer 1 [place] into nostril 2 times a day. 30 mL 12 09/12/2020 Active Additional Information Patient taking differently:1 [place] NasalBID PRN, Reported on 04/22/2022 Cromolyn Sodium 4 % Ophthalmic Solution (Crolom)Indication s:Seasonal allergic rhinitis due to pollen Instill 1 Drop into both eyes 4 times a day as needed for Allergies or Itching. 10 mL 1 09/12/2020 Active Multi Vitamin Daily Oral Tablet Take by mouth . 1 daily 0 Active Vitamin C 250 MG Oral Tablet (Ascorbic Acid) Take 1 Tablet by mouth in the morning. 2 to 3 tabs daily . 0 Active Spiriva Respimat 2.5 MCG/ACT Inhalation Aerosol Solution (Tiotropium [place] Monohydrate)Indica tions:breathing Inhale by mouth 2 Puffs in the morning. 4 g 3 01/20/2022 Active Lidocaine 4 % External Patch (Aspercreme) Place 1 Patch topically on the skin daily. 0 Active oxygen IN GASIndications:Sev ere obstructive sleep [...] once daily 90 Capsule 1 03/21/2023 Active Terbinafine HCl 1 % External Cream (LamISIL AT ATHLETE'S FOOT)Indications:C ellulitis of umbilicus Apply cream to affected area of umbilicus 2 times per day for up to 4 weeks 15 g 1 04/04/2023 Active metFORMIN HCl ER 500 MG Oral [...] with LV diastolic dysfunction, NYHA class 3 ([facility]) take 4 tablets by mouth twice a day 240 Tablet 11 06/14/2023 Active Ozempic (1 MG/DOSE) 4 MG/3ML Subcutaneous Solution Pen-injector (Semaglutide (1 MG/DOSE))Indicatio ns:Type 2 diabetes mellitus with hemoglobin A1c goal of less than 7.0% ([facility]) INJECT 1MG UNDER THE SKIN ONCE WEEKLY 3 mL 5 06/14/2023 Active Albuterol Sulfate HFA 108 (90 Base) MCG/ACT Inhalation Aerosol Solution INHALE 2 PUFFS BY MOUTH EVERY 4 HOURS NEEDED FOR COUGH, SHORTNESS OF BREATH OR WHEEZING. 18 g 07/02/2023 Active Hospital, Clinic, or Other Facility Administered Medication Ordered Dose Route Frequency Start Date End Date Status albuterol sulfate (PROVENTIL) (2.5 MG/3ML) 0.083% inhalation solution 2.5 mgIndications:Pulmonary hypertension (HCC),Chronic right-sided heart failure (HCC),Sarcoidosis,Oxygen dependent 2.5 mg NEBULIZER Q4H PRN 06/03/2017 Active documented as of this encounter (statuses as of 08/10/2023) Active Problems Problem Noted Date Diagnosed Date [...] as of this encounter (statuses as of 08/10/2023) Resolved Problems Problem Noted Date Diagnosed Date Resolved Date Polyneuropathy in other dise ases classified elsewhere 08/03/2019 07/07/2020 Class 2 severe obesity due t o excess calories with serious comorbidity and body mass index (BMI) of 39.0 to 39.9 in adult 08/03/2019 Current chronic use of systemic steroids 01/21/2019 [...] 02/26/2016 01/05/2017 Pneumothorax 01/16/2016 03/19/2018 Pulmonary blastomycosis 08/14/201402/2018 C. difficile colitis 08/13/2014 018 Respiratory failure, acute and chronic 07/21/2014 05/17/2017 Paranasal sinus disease 07/19/201306/07 [employer] Other*[id number] 06/08/2013 07/13/2016 Overview: Study Title: Genomic Markers for Patients with Cardiovascular Disease Project # [id number] Home Health Rn: Ariana Brady MD [phone] HTN, goal below 130/80 06/03/201302/25 Cholecystolithiasis 09/20/2012 07/02/19 19 Obesity, Class III, BMI 40-4 9.9 (morbid obesity) 12/23/2011 01/05/2017 skilled nursing current use of systemic steroids 11/05/2011 07/02/2018 [...] as of this encounter (statuses as of 08/10/2023) Immunizations Name Administration Dates Next Due COVID-19 [...] No 07/21/2014 documented as of this encounter Plan of Treatment Upcoming Encounters Date Type Department Care Team (Late st Contact Info) Description 08/31/2023 2:00 PM EDT Cardiac Studies Cardiac Studies, [facility] [address] [place] [address] 09/07/2023 1:30 PM EDT Office Visit Cardiology, [facility] [address] [place] [address] Beni Watson DO [address] [place] [address] 10/06/2023 2:20 PM EDT Office Visit Family [facility] [place] [address] [place] [address] Andrzej Downing MD [address] [place] [address] 11/16/2023 11:30 AM EDT Imaging Radiology, [address] [place] [address] 11/16/2023 1:00 PM EDT Office Visit Rheumatology [address] [place] [address] Faustino Delgado MD [address] [place] [address] [place] [address] 02/15/2024 2:30 PM EDT Nutrition Services Nutrition & Weight Management, [facility] [address] [place] [address] Louise Zarate RDN [address] [place] [address] Health Maintenance Due Date Last Done Comments [...] Foot Exam 01/02/2022 01/02/2021, 11/08/2018 COVID-19 Vaccine (3 - season) 2023 08/08/2020, 07/11/2020 DXA Scan 02/17/2023 02/17/2021, 080 10/2018, 01/05/2017, Additional history exists HbA1c 03/25/2023 [...] D LEVEL ONCE IN A LIFETIME-USE SMARTSET# [id number] Completed 09/23/2022, 09/03/2021, 08/30/2018, Additional history exists [...] the patient have Health Care Power of Waiter/Waitress Club? No Care Teams Rental Sales Representative Relationship Specialty Start Date End Date Andrzej Downing MD [address] [place] [address] PCP - General Family Medicine 03/20/19 documented as of this encounter
--- OUTSIDE RECORDS SUMMARY | 2023-08-31 04:20 | External Medical Summary | Summary of Care ---
Author Name Unknown Organization [facility] Address [address] [place] [address] Phone [phone] Care Team Providers Care Billing And Quality Technician Name Role Phone Andrzej Downing MD Primary Care Provider [phone]- [phone] Reason for Visit * Reason Onset Date Comments Weight Check 08/03/2023 Encounter Details Date Type Department Care Team (Late st Contact Info) Description 08/03/2023 Telephone [facility] [address] [place] [address] Pyaal Phillips, LYNNE [address] [place] [address] Weight Check Allergies Active Allergy Reactions Criticality Noted Date Comments Doxycycline Other (Please comment) Low 07/25/2013 Headache documented as of this encounter (statuses as of 08/05/2023) Medications Medication Sig Dispensed Refills Start Date [...] failure managing provider or [facility]. 1 Each 0 05/12/2018 Active Fluticasone Propionate 50 MCG/ACT Nasal Suspension (FLONASE)Indicatio ns:Nasal polyp Administer 2 Sprays into each nostril daily. Use in morning 48 g 3 05/27/2020 Active Additional Information Patient taking differently:2 [place] Each Nostril Daily(AM),Use in morning as needed, Indications: allergies, Reported on 04/22/2022 Azelastine HCl 0.1 % Nasal SolutionIndication s:Seasonal allergic rhinitis due to pollen Administer 1 [place] into nostril 2 times a day. 30 mL 12 09/12/2020 Active Additional Information Patient taking differently:1 [place] NasalBID PRN, Reported on 04/22/2022 Cromolyn Sodium [...] Respimat 2.5 MCG/ACT Inhalation Aerosol Solution (Tiotropium [place] Monohydrate)Indica tions:breathing Inhale by mouth 2 Puffs [...] or Shortness of Breath (cough). 21 mL 06/09/2023 Active Loratadine 10 MG Oral Tablet (Claritin)Indicati ons:Shortness of breath,Chronic obstructive pulmonary disease with acute exacerbation (HCC),Pulmonary hypertension associated with sarcoidosis (HCC),Chronic respiratory failure with hypoxia and hypercapnia (HCC),Oxygen dependent Take 1 Tablet by mouth in the morning. 30 Tablet 06/09/2023 Active FeroSul 325 (65 Fe) MG Oral Tablet (Ferrous Sulfate)Indication s:Iron deficiency anemia secondary to inadequate dietary iron intake TAKE 1 TABLET BY MOUTH ONCE DAILY WITH BREAKFAST 90 Tablet 06/10/2023 Active Digoxin 125 MCG Oral Tablet (Lanoxin) Take 1 Tablet by mouth in the morning. 90 Tablet 3 06/09/2023 Active Spironolactone 25 MG Oral Tablet (Aldactone) TAKE 1 TABLET BY MOUTH THREE TIMES A DAY 270 Tablet 06/14/2023 Active Folic Acid 1 MG Oral Tablet Take 1 Tablet by mouth in the morning. 90 Tablet 3 06/14/2023 Active Torsemide 20 MG Oral Tablet (Demadex)Indicatio ns:Chronic right-sided heart failure (HCC),Congestive heart failure with LV diastolic dysfunction, NYHA class 3 ([facility]) take 4 tablets by mouth twice a day 240 Tablet 06/14/2023 Active Ozempic (1 MG/DOSE) 4 MG/3ML Subcutaneous Solution Pen-injector (Semaglutide (1 MG/DOSE))Indicatio ns:Type 2 diabetes mellitus with hemoglobin A1c goal of less than 7.0% ([facility]) INJECT 1MG UNDER THE SKIN ONCE [...] as of this encounter (statuses as of 08/05/2023) Active Problems Problem Noted Date Diagnosed Date [...] as of this encounter (statuses as of 08/05/2023) Resolved Problems Problem Noted Date Diagnosed Date [...] Paranasal sinus disease 07/19/201306/07 [employer] Other*[id number] 06/08/2013 07/13/2016 Overview: Study Title: [employer] Markers for Patients with Cardiovascular Disease Project # [id number] Honing Machine Set Up Operator Tool: Ariana Brady MD [phone] HTN, goal below 130/80 06/03/201302/25 Cholecystolithiasis 09/20/2012 07/02/19 19 Obesity, Class III, BMI 40-4 9.9 (morbid obesity) 12/23/2011 01/05/2017 [facility] current use of systemic steroids 11/05/2011 07/02/2018 [...] as of this encounter (statuses as of 08/05/2023) Immunizations Name Administration Dates Next Due COVID-19 [...] encounter Miscellaneous Notes * Telephone Encounter - Payal Phillips RN - 08/05/2023 2:04 PM EST Noted Payal Phillips RN * Telephone Encounter - Erin Lopez PA-C - 08/05/2023 1:49 PM EST Noted. Orders signed as requested. Continue to monitor weight and status. He may take metolazone if weight climbs over the weekend Update status next week * Telephone Encounter - Payal Phillips RN - 08/05/2023 1:40 PM EST Erin, I spoke with Amilcar-he said he is taking: Torsemide 20 mg, 4 tabs twice a day Spirolactone 25 mg, 2 tabs in the morning & one tab in the late afternoon Can you please enter the lab orders you are requesting? Patient will have them done beginning of next week. Patient is now scheduled to see Dr. Watson on 09/06/23 thanks Payal Phillips RN * Telephone Encounter - Erin Lopez PA-C - 08/04/2023 12:23 PM EST Chart reviewed Last cardiology visit was almost 1 year ago. Please arrange sooner cardiology follow up with any provider (only recently saw Randal) Can we please verify his current dose of torsemide and spironolactone? I would also recommend updating labs to check kidney function, electrolytes with additional metolazone. BMP, magnesium * Telephone Encounter - Payal Phillips RN - 08/03/2023 1:57 PM EST Cardiology, S: I am currently managing Amilcar, he has an [facility] scale in place. I wanted to make cardiology aware that his weights have been trending up, has had recent history of gaining 3-5 lbs in 24 hours, has taken Metolazone for 3 days twice in the past few weeks-on 07/20/23 he started the Metolazone & hisweights came down, restarted the Metolazone on 07/29/23, weights again came down, but then starting trending up again. O: Patient says he feels "fine" Denies increased SOB, cough, says his legs are not more swollen, denies chest pain. Patient states he is being careful about eating salty foods Weights over the past week as follows: 08/03/23 230.5* 08/02/23 223.5 08/01/23 225.0 07/31/23 226.5* 07/30/23 224.5 07/29/23 230.5* R Started Metolazone 07/28/23 227.5 A: Phone follow up P: Encouraged patient to limit his salt intake, call with worsening symptoms Should he take Metolazone again for 3 days? Please review & let me know thanks LYNNE Chaney, RN, BSN, [facility] Registered Nurse Gold BuyerLean Specialist[address] [address] documented in this encounter Plan of Treatment Upcoming Encounters Date Type Department Care Team (Late st Contact Info) Description 08/31/2023 2:00 PM EDT Cardiac Studies Cardiac Studies, [facility] [address] [place] [address] 09/07/2023 1:30 PM EDT Office Visit Cardiology, [facility] [address] [place] [address] Beni Watson DO [address] [place] [address] 10/06/2023 2:20 PM EDT Office Visit Family [facility] [address] [place] [address] Andrzej Downing MD [address] [place] [address] 11/16/2023 11:30 AM EDT Imaging Radiology, [address] [place] [address] 11/16/2023 1:00 PM EDT Office Visit Rheumatology [address] [place] [address] Faustino Delgado MD [address] [place] [address] [place] [address] 02/15/2024 2:30 PM EDT Nutrition Services Nutrition & Weight Management, [facility] [address] [place] [address] Louise Zarate RDN [address] [place] [address] Scheduled Orders Name Type Priority Associated Diagnoses Orde r Schedule BASIC METABOLIC PANEL Lab Routine Congestive heart failure with LV diastolic dysfunction, NYHA class 3 (HCC) Expected: 08/05/2023, Expires: 08/04/2024 MAGNESIUM Lab Routine Congestive heart failure with LV diastolic dysfunction, NYHA class 3 (HCC) Expected: 08/05/2023, Expires: 08/04/2024 Health Maintenance Due Date Last Done Comments [...] Foot Exam 01/02/2022 01/02/2021, 11/08/2018 COVID-19 Vaccine (2022- season) 2023 08/08/2020, 07/11/2020 DXA Scan 02/17/2023 [...] D LEVEL ONCE IN A LIFETIME-USE SMARTSET# [id number] Completed 09/23/2022, 09/03/2021, 08/30/2018, Additional history exists Influenza Vaccine (FLU shot) Completed , 03/12/2022, 02/06/2021, Additional history exists GARDASIL-HPV IMMUNIZATION SERIES Aged Out No longer eligible based on patient's age to complete this topic MENINGOCOCCAL (MENACTRA/MENVEO) Aged Out No longer eligible based on patient's age to complete this topic documented as of this encounter Medical Devices Not on filedocumented as of this encounter Visit Diagnoses Diagnosis Congestive heart failure with LV diastolic dysfunction, NYHA class 3 (HCC)- Primary Unspecified diastolic heart failure documented in this encounter Advance Directives Latest Code Status [...] the patient have Health Care Power of Toddler Guide? No Care Teams Billing And Quality Technician Relationship Specialty Start Date End Date Andrzej Downing MD [address] [place] [address] PCP - General Family Medicine 03/20/19 documented as of this encounter
--- OUTSIDE RECORDS SUMMARY | 2023-08-31 04:20 | External Medical Summary | Summary of Care ---
Author Name Unknown Organization [facility] Address [address] [place] [address] Phone [phone] Care Team Providers Care Baggage Porter Head Name Role Phone Andrzej Downing MD Primary Care Provider [phone] Encounter Details Date Type Department Care Team (Latest Contact Info) Description 08/15/2023 Medication Management Juan [facility] [address], [place] [id number] [facility] [address] [place], [place] [id number] Referred for management of medication therapy* Allergies Active Allergy Reactions Criticality Noted Date Comments Doxycycline Other (Please comment) Low 07/25/2013 Headache documented as of this encounter (statuses as of 08/17/2023) Medications Medication Sig Dispensed Refills Start Date End Date Status NEBULIZER COMPRESSOR MISCIndications:S hortness of breath,Wheezing,S arcoidosis Use as directed 1 Each 1 1 Active NEBULIZER/TUBING/ MOUTHPIECE KITIndications:Sh ortness of breath,Wheezing,S arcoidosis use with nebs 1 Kit 11 1 Active ASPIRIN 81 MG PO TABS 1 tablet by mouth daily 0 Active Misc. Devices MISC Use as directed. BIPAP at night 0 Active Glucose Blood (ONETOUCH VERIO) STRP Use up to 4 times a day E11.9 100 Strip 11 8 Active ONETOUCH ULTRASOFT LANCETS MISC Use as directed 4 times a day as needed for Hyperglycemia (high sugar) or Hypoglycemia (low sugar). Use up to four times a day as directed 1 Box Dosing Unit 11 8 Active DIURETIC TITRATION PLAN If no improvement on day 3, contact heart failure managing provider or [facility] Tax Evaluator. 1 Each 0 8 Active Fluticasone Propionate 50 MCG/ACT Nasal Suspension (FLONASE)Indicati ons:Nasal polyp Administer 2 Sprays into each nostril daily. Use in morning 48 g 3 0 Active Additional Information Patient taking differently:2 [place] Each Nostril Daily(AM),Use in morning as needed, Indications: allergies, Reported on 04/22/2022 Azelastine HCl 0.1 % Nasal SolutionIndicatio ns:Seasonal allergic rhinitis due to pollen Administer 1 [place] into nostril 2 times a day. 30 mL 12 1 Active Additional Information Patient taking differently:1 [place] NasalBID PRN, Reported on 04/22/2022 Cromolyn Sodium 4 % Ophthalmic Solution (Crolom)Indicatio ns:Seasonal allergic rhinitis due to pollen Instill 1 Drop into both eyes 4 times a day as needed for Allergies or Itching. 10 mL 1 1 Active Spiriva Respimat 2.5 MCG/ACT Inhalation Aerosol Solution (Tiotropium [place] Monohydrate)Indic ations:breathing Inhale by mouth 2 Puffs in the morning. 4 g 3 2 Active oxygen IN GASIndications:[place] obstructive sleep apnea,Pulmonary hypertension (HCC),Sarcoidosis of lung (HCC) 2 LPM during rest, 3 LPM while ambulating, 4 LPM through Trilogy during sleep 1 Each 0 3 Active Breo Ellipta 200-25 MCG/ACT Inhalation Aerosol Powder Breath Activated (fluticasone furoate-vilantero l) inhale 1 puff by mouth and INTO THE LUNGS every morning 60 Blister Dosing Unit 3 3 Active Losartan Potassium 25 MG Oral Tablet (Cozaar)Indicatio ns:Chronic right-sided heart failure (HCC),Essential hypertension with goal blood pressure less than 130/80 take 1 tablet by mouth daily 90 Tablet 3 3 Active Montelukast Sodium 10 MG Oral Tablet (Singulair)Indica tions:Increased nasal secretion take 1 tablet by mouth at bedtime 90 Tablet 3 3 Active Potassium Chloride Bety ER 20 MEQ Oral Tablet Extended ReleaseIndication s:Hypokalemia take 1 tablet by mouth twice a day 180 Tablet 1 3 Active Citalopram Hydrobromide 20 MG Oral Tablet (CeleXA)Indicatio ns:Major depressive disorder TAKE 1 TABLET BY MOUTH ONCE DAILY 90 Tablet 2 3 Active Omeprazole 20 MG Oral Capsule Delayed Release (PriLOSEC) take 1 capsule by mouth every morning before FIRST MEAL OF THE DAY 90 Capsule 2 3 Active Tamsulosin HCl 0.4 MG Oral Capsule (Flomax) take 1 capsule by mouth once daily 90 Capsule 1 3 Active metFORMIN HCl ER 500 MG Oral Tablet Extended Release 24 Hour (Glucophage XR) take 2 tablets by mouth ONCE daily 180 Tablet 1 3 Active Empagliflozin 25 MG Oral Tablet (Jardiance)Indica tions:Type 2 diabetes mellitus with hemoglobin A1c goal of less than 7.0% (HCC) take 1 tablet by mouth once daily 90 Tablet 1 3 Active metOLazone 2.5 MG Oral Tablet (Zaroxolyn)Indica tions:Hypertensiv e heart disease with chronic right-sided congestive heart failure (HCC) Take 2.5 mg daily for three days when weight increases 3 pounds in 24 hours or 5 pounds in one week. 30 Tablet 0 3 Active Ipratropium-Albut floyd 0.5-2.5 (3) MG/3ML Inhalation Solution (Duoneb)Indicatio ns:Shortness of breath,Chronic obstructive pulmonary disease with acute exacerbation (HCC),Pulmonary hypertension associated with sarcoidosis (HCC),Chronic respiratory failure with hypoxia and hypercapnia (HCC),Oxygen dependent Inhale 3 mL via nebulizer every 6 hours as needed for Wheezing or Shortness of Breath (cough). 21 mL 1 4 Active Loratadine 10 MG Oral Tablet (Claritin)Indicat ions:Shortness of breath,Chronic obstructive pulmonary disease with acute exacerbation (HCC),Pulmonary hypertension associated with sarcoidosis (HCC),Chronic respiratory failure with hypoxia and hypercapnia (HCC),Oxygen dependent Take 1 Tablet by mouth in the morning. 30 Tablet 5 4 Active FeroSul 325 (65 Fe) MG Oral Tablet (Ferrous Sulfate)Indicatio ns:Iron deficiency anemia secondary to inadequate dietary iron intake TAKE 1 TABLET BY MOUTH ONCE DAILY WITH BREAKFAST 90 Tablet 1 4 Active Digoxin 125 MCG Oral Tablet (Lanoxin) Take 1 Tablet by mouth in the morning. 90 Tablet 3 4 Active Spironolactone 25 MG Oral Tablet (Aldactone) TAKE 1 TABLET BY MOUTH THREE TIMES A DAY 270 Tablet 1 4 Active Folic Acid 1 MG Oral Tablet Take 1 Tablet by mouth in the morning. 90 Tablet 3 4 Active Torsemide 20 MG Oral Tablet (Demadex)Indicati ons:Chronic right-sided heart failure (HCC),Congestive heart failure with LV diastolic dysfunction, NYHA class 3 (HCC) take 4 tablets by mouth twice a day 240 Tablet 11 4 Active Ozempic (1 MG/DOSE) 4 MG/3ML Subcutaneous Solution Pen-injector (Semaglutide (1 MG/DOSE))Indicati ons:Type 2 diabetes mellitus with hemoglobin A1c goal of less than 7.0% (HCC) INJECT 1MG UNDER THE SKIN ONCE WEEKLY 3 mL 5 4 Active Albuterol Sulfate HFA 108 (90 Base) MCG/ACT Inhalation Aerosol Solution INHALE 2 PUFFS BY MOUTH EVERY 4 HOURS NEEDED FOR COUGH, SHORTNESS OF BREATH OR WHEEZING. 18 g 5 4 Active Multi Vitamin Daily Oral Tablet Take by mouth . 1 daily 0 08/17/19 24 Discontinued Vitamin C 250 MG Oral Tablet (Ascorbic Acid) Take 1 Tablet by mouth in the morning. 2 to 3 tabs daily . 0 08/17/19 24 Discontinued Lidocaine 4 % External Patch (Aspercreme) Place 1 Patch topically on the skin daily. 0 08/17/19 24 Discontinued Terbinafine HCl 1 % External Cream (LamISIL AT ATHLETE'S FOOT)Indications: Cellulitis of umbilicus Apply cream to affected area of umbilicus 2 times per day for up to 4 weeks 15 g 1 3 08/17/19 24 Discontinued predniSONE 20 MG Oral Tablet (Deltasone)Indica tions:Shortness of breath,Chronic obstructive pulmonary disease with acute exacerbation (HCC),Pulmonary hypertension associated with sarcoidosis (HCC),Chronic respiratory failure with hypoxia and hypercapnia (HCC),Oxygen dependent Take 2 Tablets by mouth in the morning for 5 days. 10 Tablet 0 4 08/17/19 24 Discontinued Hospital, Clinic, or Other Facility Administered Medication Ordered Dose Route Frequency Start Date End Date Status albuterol sulfate (PROVENTIL) (2.5 MG/3ML) 0.083% inhalation solution 2.5 mgIndications:Pulmonary hypertension (HCC),Chronic right-sided heart failure (HCC),Sarcoidosis,Oxygen dependent 2.5 mg NEBULIZER Q4H PRN 06/03/2017 Active documented as of this encounter (statuses as of 08/17/2023) Active Problems Problem Noted Date Diagnosed Date [...] as of this encounter (statuses as of 08/17/2023) Resolved Problems Problem Noted Date Diagnosed Date [...] Paranasal sinus disease 07/19/201306/07 [employer] Other*[id number] 06/08/2013 07/13/2016 Overview: Study Title: Genomic Markers for Patients with Cardiovascular Disease Project # [id number] Engineer Steam: Ariana Brady MD [phone] HTN, goal below 130/80 06/03/201302/25 Cholecystolithiasis 09/20/2012 07/02/19 19 Obesity, Class III, BMI 40-4 9.9 (morbid obesity) 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 Objective: Review of patient's allergies indicates: Allergen Reactions Doxycycline Other (Please comment) Headache Current Outpatient Medications - WARNING: List may be incomplete due to filtering Medication Sig Dispense Refill Albuterol Sulfate HFA 108 (90 Base) MCG/ACT Inhalation Aerosol Solution INHALE 2 PUFFS BY MOUTH EVERY 4 HOURS NEEDED FOR COUGH, SHORTNESS OF BREATH OR WHEEZING. 18 g 5 Folic Acid 1 MG Oral Tablet Take 1 Tablet by mouth in the morning. 90 Tablet 3 Ozempic (1 MG/DOSE) 4 MG/3ML Subcutaneous Solution Pen-injector (Semaglutide (1 MG/DOSE)) INJECT 1MG UNDER THE SKIN ONCE WEEKLY 3 mL 5 Spironolactone 25 MG Oral Tablet (Aldactone) TAKE 1 TABLET BY MOUTH THREE TIMES A DAY 270 Tablet 1 Torsemide 20 MG Oral Tablet (Demadex) take 4 tablets by mouth twice a day 240 Tablet 11 FeroSul 325 (65 Fe) MG Oral Tablet (Ferrous Sulfate) TAKE 1 TABLET BY MOUTH ONCE DAILY WITH BREAKFAST 90 Tablet 1 Digoxin 125 MCG Oral Tablet (Lanoxin) Take 1 Tablet by mouth in the morning. 90 Tablet 3 Ipratropium-Albuterol 0.5-2.5 (3) MG/3ML Inhalation Solution (Duoneb) Inhale 3 mL via nebulizer every 6 hours as needed for Wheezing or Shortness of Breath (cough). 21 mL 1 Loratadine 10 MG Oral Tablet (Claritin) Take 1 Tablet by mouth in the morning. 30 Tablet 5 metOLazone 2.5 MG Oral Tablet (Zaroxolyn) Take 2.5 mg daily for three days when weight increases 3 pounds in 24 hours or 5 pounds in one week. 30 Tablet 0 Empagliflozin 25 MG Oral Tablet (Jardiance) take 1 tablet by mouth once daily 90 Tablet 1 metFORMIN HCl ER 500 MG Oral Tablet Extended Release 24 Hour (Glucophage XR) take 2 tablets by mouth ONCE daily 180 Tablet 1 Tamsulosin HCl 0.4 MG Oral Capsule (Flomax) take 1 capsule by mouth once daily 90 Capsule 1 Omeprazole 20 MG Oral Capsule Delayed Release (PriLOSEC) take 1 capsule by mouth every morning before FIRST MEAL OF THE DAY 90 Capsule 2 Citalopram Hydrobromide 20 MG Oral Tablet (CeleXA) TAKE 1 TABLET BY MOUTH ONCE DAILY 90 Tablet 2 Potassium Chloride Bety ER 20 MEQ Oral Tablet Extended Release take 1 tablet by mouth twice a day 180 Tablet 1 Montelukast Sodium 10 MG Oral Tablet (Singulair) take 1 tablet by mouth at bedtime 90 Tablet 3 Losartan Potassium 25 MG Oral Tablet (Cozaar) take 1 tablet by mouth daily 90 Tablet 3 Breo Ellipta 200-25 MCG/ACT Inhalation Aerosol Powder Breath Activated (fluticasone furoate-vilanterol) inhale 1 puff by mouth and INTO THE LUNGS every morning 60 Blister Dosing Unit 3 Spiriva Respimat 2.5 MCG/ACT Inhalation Aerosol Solution (Tiotropium [place] Monohydrate) Inhale bymouth 2 Puffs in the morning. 4 g 3 Azelastine HCl 0.1 % Nasal Solution Administer 1 [place] into nostril 2 times a day. (Patient taking differently: Administer 1 [place] into nostril 2 times a day as needed.) 30 mL 12 Cromolyn Sodium 4 % Ophthalmic Solution (Crolom) Instill 1 Drop into both eyes 4 times a day as needed for Allergies or Itching. 10 mL 1 Fluticasone Propionate 50 MCG/ACT Nasal Suspension (FLONASE) Administer 2 Sprays into each nostril daily. Use in morning (Patient taking differently: Administer 2 Sprays into each nostril in the morning. Use in morning as needed.) 48 g 3 ASPIRIN 81 MG PO TABS 1 tablet by mouth daily oxygen IN GAS 2 LPM during rest, 3 LPM while ambulating, 4 LPM through Trilogy during sleep 1 Each 0 DIURETIC TITRATION PLAN If no improvement on day 3, contact heart failure managing provider or [facility] Tax Evaluator. 1 Each 0 Glucose Blood (ONETOUCH VERIO) STRP Use up to 4 times a day E11.9 100 Strip 11 ONETOUCH ULTRASOFT LANCETS MISC Use as directed 4 times a day as needed for Hyperglycemia (high sugar) or Hypoglycemia (low sugar). Use up to four times a day as directed 1 Box Dosing Unit 11 Misc. Devices MISC Use as directed. BIPAP at night NEBULIZER COMPRESSOR MISC Use as directed 1 Each 1 NEBULIZER/TUBING/MOUTHPIECE KIT use with nebs 1 Kit 11 Immunization History Administered Date(s) Administered COVID-19 mRNA, LNP-s, No Preserve, 2-Dose Series (Moderna) 07/11/2020, 08/08/2020 PPD 08/24/2011, 08/29/2012 Pneumococcal Conjugate Vacc, 13 Valent (Prevnar) 05/20/2017 Pneumococcal Polysaccharide PPV23 (Pneumovax) 04/14/2009, 04/19/2014 Seasonal Influenza Virus Vaccine, Unspecified Formulation 04/19/2014, 03/06/2015, 05/20/2017, 04/10/2018, 02/28/2019 Seasonal Influenza, PF, 6 M & above, IM , (FluLaval or Fluzone) 04/10/2018, 02/28/2019, 03/05/2020, 02/06/2021, 03/12/2022, 04/04/2023 Seasonal Influenza, Quadrivalent, No Preserve, IM 04/21/2015, 05/20/2017 Seasonal Influenza, Split, IIV3, With Preserve, Inj 04/19/2014 TD, Preservative Free 09/18/2018 TDAP (age 11 and older)(Adacel) 09/11/2008 TMR Interventions Incomplete Medication Therapy Recommendations No medication therapy recommendations to display Completed Medication Therapy Recommendations No medication therapy recommendations to display Assessment & Plan Indication, effectiveness, safety and convenience of his medications were reviewed today. The patient's medical conditions were assessed, evaluated, and deemed meeting goals of drug therapy, with thefollowing exceptions. Additional Notes: Summary Time Spent: 1-15 min Supervising pharmacist who provided the service: Michael rUena, Nolberto Takebrooklyn Information Who was the recipient of the CMR service: beneficiary Language Template for the Patient Takeaway: Jamaican I attest that I have reviewed and updated the patient's conditions, allergies, and medications to the best of my ability. Patient provided medication list gathered by: Feroz Castro RPh 08/17/2023, 12:49 PM documented in this encounter Miscellaneous Notes * MTM To-Do-List - Michael Urena RPh - 08/17/2023 12:37 PM EDT Images from the original note were not included. What we talked about: What I should do: The importance of taking your medication as prescribed Your medicine works best when taken as prescribed. It can be hard to remember to take daily medications. Consider making it a part of your daily routine. Pair taking your medication with something you do every day, like brushing your teeth or eating a meal. Consider setting daily alarms to help remind yourself when it is time to take your medicine. Using a pill box can also help you organize your medicines. Pill boxes allow you to fill each day slot with your daily medicine and help you track when your next dose is due. What we talked about: What I should do: Breo and Spiriva Inhalers contain 3 different types of medications to target your lungs to help youbreath better. It may be cost effective to change to 1 inhaler that contains all 3 of the medications needed to help your COPD. Trelegy and Breztri are two inhalers that are currently available as 1 combination inhaler to be used as maintenance therapy for COPD. Talk to your doctor about switching to either inhaler, which may save your from paying 2 copays instead of 1. PER OUR CONVERSATION, IT IS RECOMMENDED THAT YOU RINSE YOUR MOUTH AFTER EACH USE of Breo TO PREVENT POTENTIAL ORAL THRUSH DUE TO THE USE OF THIS MEDICATION. FOLLOW UP WITH YOUR DOCTOR WITH ANY QUESTIONS OR CONCERNS REGARDING THIS MEDICATION. What we talked about: What I should do: Digoxin IS USED TO TREAT ISSUES RELATING TO THE HEART RHYTHM AND HEART BEAT STRENGTH. YOUR BLOOD LEVELS MAY NEED TO BE MONITORED WHILE TAKING THIS MEDICATION TO MAKE SURE THAT IT IS AT A LEVEL WHERE IT CAN PROVIDE THE MOST EFFECT. IF THE LEVELS OF THIS MEDICATION GO TO HIGH IN THE BLOOD, YOU CAN BECOME TOXIC. SOME SIGNS AND SYMPTOMS TO WATCH OUT FOR INCLUDE; CONFUSION, CHANGES IN MENTAL STATUS, VISION DISTURBANCES (FLOATERS AND SEE SPOTS), LOSS OF APPETITE, NAUSEA VOMITING DIARRHEA. IF YOU BECOME UNWELL AND SUSPECT YOU ARE EXPERIENCING ANY OF THE ABOVE SYMPTOMS WHILE TAKING THIS MEDICATION. CONTACT YOUR DOCTOR IMMEDIATELY What we talked about: What I should do: Diabetes Care PLEASE MONITOR FOR SIGNS AND SYMPTOMS OF HYPOGLYCEMIA AND HYPERGLYCEMIA. SYMPTOMS OF HYPOGLYCEMIA OR TOO LOW BLOOD SUGAR CAN INCLUDE WEAKNESS, SWEATING, AND HEART PALPITATIONS.MAKE SUREYOU HAVE A PLAN IN PLACE TO REVERSE LOW BLOOD SUGAR, WHICH MAY INCLUDE KEEPING GLUCOSE TABLETS OR LIQUID ON HAND. YOU CAN ALSO KEEP A SUGARY DRINK AVAILABLE, SUCH ORANGE JUICE, IN CASE OF AN EMERGENCY. IF BLOOD SUGAR CAN NOT BE RAISED TO ACCEPTABLE LEVELS, CONTACT EMERGENCY SERVICES IMMEDIATELY.SYMPTOMS OF HYPERGLYCEMIA OR TOO HIGH BLOOD SUGAR CAN INCLUDE INCREASE IN URINATION, LETHARGY OR TIREDNESS AND INCREASES IN THIRST. PLEASE CONTACT YOUR DOCTOR WITH ANY ISSUES THAT FALL OUTSIDE OF YOUR PRESCRIBED DIABETIC PLAN AND OUTCOMES. IT IS RECOMMENDED FOR PATIENTS WITH DIABETES TO HAVE AN ANNUAL EYE AND FOOT EXAM TO HELP MONITOR FOR COMPLICATIONS ASSOCIATED WITH DIABETES IN THESE AREAS. THEFOOT AND EYES ARE PRONE TO DIABETES COMPLICATIONS WHICH CAN INCLUDE BLINDNESS AND DECREASE CIRCULATION IN LOWER EXTREMITIES WHICH CAN LEAD TO NEGATIVE OUTCOMES SUCH AMPUTATION. What we talked about: What I should do: PER OUR CONVERSATION AND THE CURRENT CDC RECOMMENDATIONS AND GUIDELINES YOU MAY NEED THE FOLLOWING VACCINATIONS: SHINGLES: 2 DOSE SERIES(Shingrix) spaced 2-4 months apart THESE VACCINES CAN BE OBTAINED AT YOUR LOCAL PHARMACY FOR ZERO COPAY. * MT Personal Medication List - Michael Urena RPh - 08/17/2023 12:08 PM EDT Medication How I take it Why I use it Prescriber Albuterol Sulfate HFA 108 (90 Base) MCG/ACT Inhalation Aerosol Solution INHALE 2 PUFFS BY MOUTH EVERY 4 HOURS NEEDED COPD Jose Dsouza MD ASPIRIN 81 MG PO TABS Take 1 tablet by mouth daily Heart Health Self Azelastine HCl 0.1 % Nasal Solution Administer 1 [place] into nostril 2 times a day as needed Allergies AraNICK Ya Ellipta 200-25 MCG/ACT Inhalation Aerosol Powder Breath Activated (fluticasone furoate-vilanterol) inhale 1 puff by mouth and INTO THE LUNGS every morning COPD Jose Dsouza MD Citalopram Hydrobromide 20 MG Oral Tablet (CeleXA) TAKE 1 TABLET BY MOUTH ONCE DAILY Major depressive disorder Andrzej Downing MD Cromolyn Sodium 4 % Ophthalmic Solution (Crolom) Instill 1 Drop into both eyes 4 times a day as needed Allergies rAa Tubbs PA-C Digoxin 125 MCG Oral Tablet (Lanoxin) Take 1 Tablet by mouth in the morning. Heart Failure Andrzej Downing MD Empagliflozin 25 MG Oral Tablet (Jardiance) take 1 tablet by mouth once daily Diabetes Andrzej Downing MD FeroSul 325 (65 Fe) MG Oral Tablet (Ferrous Sulfate) TAKE 1 TABLET BY MOUTH ONCE DAILY WITH BREAKFAST IRON DEF ANEMIA DIETARY Andrzej Downing MD Fluticasone Propionate 50 MCG/ACT Nasal Suspension (FLONASE) Administer 2 Sprays into each nostril daily in the morning as needed Nasal polyp Ara Tulio Tubbs PA-C Folic Acid 1 MG Oral Tablet Take 1 Tablet by mouth in the morning. General Health Andrzej Downing MD Ipratropium-Albuterol 0.5-2.5 (3) MG/3ML Inhalation Solution (Duoneb) Inhale 1 viall via nebulizer every 6 hours as needed COPD Dulce Lamb MD Loratadine 10 MG Oral Tablet (Claritin) Take 1 Tablet by mouth in the morning. Allergies Dulce Lamb MD Losartan Potassium 25 MG Oral Tablet (Cozaar) Take 1 tablet by mouth daily High Blood Pressure Anthony Tee DO metFORMIN HCl ER 500 MG Oral Tablet Extended Release 24 Hour (Glucophage XR) Take 2 tablets by mouth ONCE daily Diabetes Andrzej Downing MD metOLazone 2.5 MG Oral Tablet (Zaroxolyn) Take 1 tablet daily for three days when weight increases 3 pounds in 24 hours or 5 pounds in one week. Fluid Retention Hieu Almanzar MD Montelukast Sodium 10 MG Oral Tablet (Singulair) Take 1 tablet by mouth at bedtime Allergies Andrzej Downing MD Omeprazole 20 MG Oral Capsule Delayed Release (PriLOSEC) take 1 capsule by mouth every morning before FIRST MEAL OF THE DAY Acid Reflux Andrzej Downing MD Ozempic (1 MG/DOSE) 4 MG/3ML Subcutaneous Solution Pen-injector (Semaglutide (1 MG/DOSE)) INJECT 1MG UNDER THE SKIN ONCE WEEKLY Diabetes Andrzej Downing MD Potassium Chloride Bety ER 20 MEQ Oral Tablet Extended Release Take 1 tablet by mouth twice a day Low Potassium Andrzej Downing MD Spiriva Respimat 2.5 MCG/ACT Inhalation Aerosol Solution (Tiotropium [place] Monohydrate) Inhale bymouth 2 Puffs in the morning. COPD Joseskeou Dsouza MD Spironolactone 25 MG Oral Tablet (Aldactone) TAKE 1 TABLET BY MOUTH THREE TIMES A DAY Heart FailureAndrzej Downing MD Tamsulosin HCl 0.4 MG Oral Capsule (Flomax) take 1 capsule by mouth once daily Enlarged Prostate Andrzej Downing MD Torsemide 20 MG Oral Tablet (Demadex) Take 4 tablets by mouth twice a day Heart Failure Andrzej Downing MD documented in this encounter Plan of Treatment Upcoming Encounters Date Type Department Care Team (Late st Contact Info) Description 08/31/2023 2:00 PM EDT Cardiac Studies Cardiac Studies, [facility] [address] [facility] [place] [address] 09/07/2023 1:30 PM EDT Office Visit Cardiology, [facility] [address] [facility] [place] [address] Beni Watson, [address] [facility] [place] [address] 10/06/2023 2:20 PM EDT Office Visit Family [facility] [place] [address] [place] [id number] Andrzej Downing MD [address] [facility] [place] [address] 11/16/2023 11:30 AM EDT Imaging Radiology, [address] [place] [address] 11/16/2023 1:00 PM EDT Office Visit Rheumatology [address] [place] [address] Faustino Delgado MD [address] [place] [address] [place] [address] 02/15/2024 2:30 PM EDT Nutrition Services Nutrition & Weight Management, [facility] [address] [place] [address] Louise Zarate RDN [address] [place] [address] Health Maintenance Due Date Last Done Comments [...] D LEVEL ONCE IN A LIFETIME-USE SMARTSET# [id number] Completed 09/23/2022, 09/03/2021, 08/30/2018, Additional history exists [...] as of this encounter Visit Diagnoses Diagnosis Referred for management of medication therapy- Primary Encounter for long-term (current) use of other medications documented in this encounter Advance Directives Latest [...] the patient have Health Care Power of Vice President [employer]? No Care Teams Baggage Porter Head Relationship Specialty Start Date End Date Andrzej Downing MD [address] [facility] [place] [address] PCP - General Family Medicine 03/20/19 documented as of this encounter
--- OUTSIDE RECORDS SUMMARY | 2023-08-31 04:21 | External Medical Summary | Summary of Care ---
Author Name Unknown Organization [facility] Address [address] [place] [address] Phone [phone] Care Team Providers Care Retail Stocker Name Role Phone Andrzej Downing MD Primary Care Provider +1- [phone] Encounter Details Date Type Department Care Team (Late st Contact Info) Description 07/26/2023 Population Health External Data Unspecified Department Allergies Active Allergy Reactions Criticality Noted Date Comments Doxycycline Other (Please comment) Low 07/25/2013 Headache documented as of this encounter (statuses as of 07/27/2023) Medications Medication Sig Dispensed Refills Start Date [...] 3, contact heart failure managing provider or [facility] Bridge Crew Member. 1 Each 0 05/12/2018 Active Fluticasone Propionate 50 MCG/ACT Nasal Suspension (FLONASE)Indicatio ns:Nasal polyp Administer 2 Sprays into each nostril daily. Use in morning 48 g 3 05/27/2020 Active Additional Information Patient taking differently:2 [place] Each Nostril Daily(AM),Use in morning as needed, Indications: allergies, Reported on 04/22/2022 Azelastine HCl 0.1 % Nasal SolutionIndication s:Seasonal allergic rhinitis due to pollen Administer 1 [place] into nostril 2 times a day. 30 mL 12 09/12/2020 Active Additional Information Patient taking differently:1 [place] NasalBID PRN, Reported on 04/22/2022 Cromolyn Sodium [...] Respimat 2.5 MCG/ACT Inhalation Aerosol Solution (Tiotropium [place] Monohydrate)Indica tions:breathing Inhale by mouth 2 Puffs [...] with LV diastolic dysfunction, NYHA class 3 ([facility]) take 4 tablets by mouth twice a day 240 Tablet 11 06/14/2023 Active Ozempic (1 MG/DOSE) 4 MG/3ML Subcutaneous Solution Pen-injector (Semaglutide (1 MG/DOSE))Indicatio ns:Type 2 diabetes mellitus with hemoglobin A1c goal of less than 7.0% ([facility]) INJECT 1MG UNDER THE SKIN ONCE [...] as of this encounter (statuses as of 07/27/2023) Active Problems Problem Noted Date Diagnosed Date [...] as of this encounter (statuses as of 07/27/2023) Resolved Problems Problem Noted Date Diagnosed Date [...] Paranasal sinus disease 07/19/201306/07 [employer] Other*[id number] 06/08/2013 07/13/2016 Overview: Study Title: Genomic Markers for Patients with Cardiovascular Disease Project # [id number] University Administrative Assistant: Ariana Brady MD [phone] HTN, goal below 130/80 06/03/201302/25 Cholecystolithiasis 09/20/2012 07/02/19 19 Obesity, Class III, BMI 40-4 9.9 (morbid obesity) 12/23/2011 01/05/2017 medical terminologist current use of systemic steroids 11/05/2011 07/02/2018 [...] as of this encounter (statuses as of 07/27/2023) Immunizations Name Administration Dates Next Due COVID-19 [...] 2:00 PM EDT Cardiac Studies Cardiac Studies, [facility] [address] [place] [address] 09/05/2023 1:00 PM EDT Office Visit Cardiology, [facility] [address] [place] [address] Tresa Hammonds CRNP [address] [facility] [place] [address] 10/06/2023 2:20 PM EDT Office Visit Family [facility] [address] [place] [phone] Andrzej Downing MD [address] [place] [address] 11/16/2023 11:30 AM EDT Imaging Radiology, [address] [address] 11/16/2023 1:00 PM EDT Office Visit Rheumatology [address] [place] [address] Faustino Delgado MD [address] [place] [address] [place] [address] 02/15/2024 2:30 PM EDT Nutrition Services Nutrition & Weight Management, [facility] [address] [place] [address] Louise Zarate RDN 132 [facility] [place] [address] Health Maintenance Due Date Last Done Comments [...] D LEVEL ONCE IN A LIFETIME-USE SMARTSET# [id number] Completed 09/23/2022, 09/03/2021, 08/30/2018, Additional history exists [...] the patient have Health Care Power of Explosive Technician? No Care Teams Retail Stocker Relationship Specialty Start Date End Date Andrzej Downing MD [address] [place] [address] PCP - General Family Medicine 03/20/19 documented as of this encounter
--- OUTSIDE RECORDS SUMMARY | 2023-08-31 04:21 | External Medical Summary | Summary of Care ---
Author Name Unknown Organization [facility] Address [address] [place] [address] Phone [phone] Care Team Providers Care Early Interventionist Name Role Phone Andrzej Downing MD Primary Care Provider +1- [phone] Reason for Visit * Reason Onset Date Comments Medication Question 06/14/2023 Encounter Details Date Type Department Care Team (Latest Contact Info) Description 06/14/2023 Marketing Assistant Retail Division Telephone Care Coordination and Integration [address], [place] [id number] Payal Phillips, LYNNE [address] [place] [address] Medication Question Allergies Active Allergy Reactions Criticality Noted Date Comments Doxycycline Other (Please comment) Low 07/25/2013 Headache documented as of this encounter (statuses as of 06/15/2023) Medications Medication Sig Dispensed Refills Start Date [...] Strip 11 03/02/2018 Active ONETOUCH ULTRASOFT LANCETS [facility] Use as directed 4 times a day as needed for Hyperglycemia (high sugar) or Hypoglycemia (low sugar). Use up to four times a day as directed 1 Box Dosing Unit 11 03/02/2018 Active DIURETIC TITRATION PLAN If no improvement on day 3, contact heart failure managing provider or [facility] Marketing Assistant Retail Division. 1 Each 0 05/12/2018 Active Fluticasone Propionate 50 MCG/ACT Nasal Suspension (FLONASE)Indicatio ns:Nasal polyp Administer 2 Sprays into each nostril daily. Use in morning 48 g 3 05/27/2020 Active Additional Information Patient taking differently:2 [place] Each Nostril Daily(AM),Use in morning as needed, Indications: allergies, Reported on 04/22/2022 Azelastine HCl 0.1 % Nasal SolutionIndication s:Seasonal allergic rhinitis due to pollen Administer 1 [place] into nostril 2 times a day. 30 mL 12 09/12/2020 Active Additional Information Patient taking differently:1 [place] NasalBID PRN, Reported on 04/22/2022 Cromolyn Sodium [...] Respimat 2.5 MCG/ACT Inhalation Aerosol Solution (Tiotropium [place] Monohydrate)Indica tions:breathing Inhale by mouth 2 Puffs in the morning. 4 g 3 01/20/2022 Active Lidocaine 4 % External Patch (Aspercreme) Place 1 Patch topically on the skin daily. 0 Active Albuterol Sulfate HFA 108 (90 Base) MCG/ACT Inhalation Aerosol Solution Inhale 2 Puffs by mouth every 4 hours as needed for Cough, Shortness of Breath or Wheezing. 18 g 11 05/11/2022 Active oxygen IN GASIndications:Sev ere obstructive sleep [...] with acute exacerbation (HCC),Pulmonary hypertension associated with sarcoidosis,Chroni c respiratory failure with hypoxia and hypercapnia (HCC),Oxygen dependent Inhale 3 mL via nebulizer every 6 hours as needed for Wheezing or Shortness of Breath (cough). 21 mL 06/09/2023 Active Loratadine 10 MG Oral Tablet (Claritin)Indicati ons:Shortness of breath,Chronic obstructive pulmonary disease with acute exacerbation (HCC),Pulmonary hypertension associated with sarcoidosis,Chroni c respiratory failure with hypoxia and hypercapnia (HCC),Oxygen [...] with LV diastolic dysfunction, NYHA class 3 ([facility]) take 4 tablets by mouth twice a day 240 Tablet 06/14/2023 Active Ozempic (1 MG/DOSE) 4 MG/3ML Subcutaneous Solution Pen-injector (Semaglutide (1 MG/DOSE))Indicatio ns:Type 2 diabetes mellitus with hemoglobin A1c goal of less than 7.0% ([facility]) INJECT 1MG UNDER THE SKIN ONCE WEEKLY 3 mL 06/14/2023 Active Hospital, Clinic, or Other Facility Administered Medication Ordered Dose Route Frequency Start Date End Date Status albuterol sulfate (PROVENTIL) (2.5 MG/3ML) 0.083% inhalation solution 2.5 mgIndications:Pulmonary hypertension (HCC),Chronic right-sided heart failure (HCC),Sarcoidosis,Oxygen dependent 2.5 mg NEBULIZER Q4H PRN 06/03/2017 Active documented as of this encounter (statuses as of 06/15/2023) Active Problems Problem Noted Date Diagnosed Date [...] as of this encounter (statuses as of 06/15/2023) Resolved Problems Problem Noted Date Diagnosed Date [...] 01/05/2017 Pneumothorax 01/16/2016 03/19/2018 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 difficile colitis 08/13/2014 018 Respiratory failure, acute and chronic 07/21/2014 05/17/2017 Paranasal sinus disease 07/19/201306/07 [employer] Other*[id number] 06/08/2013 07/13/2016 Overview: Study Title: Genomic Markers for Patients with Cardiovascular Disease Project # [id number] Captain/Airline Pilot: Ariana Brady MD [phone] HTN, goal below 130/80 06/03/201302/25 Cholecystolithiasis 09/20/2012 07/02/19 19 Obesity, Class III, BMI 40-4 9.9 (morbid obesity) 12/23/2011 01/05/2017 detention current use of systemic steroids 11/05/2011 07/02/2018 [...] as of this encounter (statuses as of 06/15/2023) Immunizations Name Administration Dates Next Due COVID-19 [...] encounter Miscellaneous Notes * Telephone Encounter - Lorena Zayas LPN - 06/15/2023 1:21 PM EST Left detailed message on identified answering machine to inform pt of message below. * Telephone Encounter - Andrzej Downing MD - 06/14/2023 7:03 PM EST He could see if they have a different dose (could go up to 2 mg or back down to 0.5 mg) or he couldsee if there is supply at other pharmacies. Otherwise, wait until available. * Telephone Encounter - Payal Phillips RN - 06/14/2023 3:47 PM EST Amilcar Gross calls in stating that [facility] in [place] tells him that the Ozempic is on back order-he wantsto know if something else could be ordered, or if it okay to not take it until it comes back into stock-thanks Payal Phillips RN documented in this encounter Plan of Treatment Upcoming Encounters Date Type Department Care Team (Late st Contact Info) Description 08/31/2023 2:00 PM EDT Cardiac Studies Cardiac Studies, [facility] [address] [facility] [place] [address] 09/05/2023 1:00 PM EDT Office Visit Cardiology, [facility] 132 [facility] [place] [address] Tresa Hammonds CRNP [address] [place] [address] 10/06/2023 2:20 PM EDT Office Visit Family [facility] [address] [place] [address] Andrzej Downing MD [address] [place] [address] 11/16/2023 11:30 AM EDT Imaging Radiology, [address] [place] [address] 11/16/2023 1:00 PM EDT Office Visit Rheumatology [address] [place] [address] Faustino Delgado MD [address] [place] [address] [place] [address] 02/15/2024 2:30 PM EDT Nutrition Services Nutrition & Weight Management, [facility] [address] [address] Louise Zarate RDN [address] [place] [address] Health Maintenance Due Date Last Done Comments Hepatitis B (1 of 3 - 3-dose series) 1970 Alpha-1 Antitrypsin 10/27/1987 Cologuard 2014 Colonoscopy 2014 Colorectal Cancer Screening 2014 Fecal Occult Blood Test 2014 Sigmoidoscopy 2014 Zoster Vaccines (1 of 2) 10/27/2019 *BISPHONATE OR OTHER ACCEPTABLE MEDICATION NEEDED FOR OSTEOPOROSIS (REFER TO SMARTSET #1146) 07/11/2021 DIG LEVEL FOR MEDICATION MONITORING YEARLY 09/02/2021 09/02/2020, 07/12/2019, 06/02/2018 Diabetic Foot Exam 01/02/2022 01/02/2021, 11/08/2018 Diabetic Eye Exam 09/24/2022 09/24/2021, , 04/06/2019, Additional history exists COVID-19 Vaccine ( season) 2023 08/08/2020, 07/11/2020 DXA Scan 02/17/2023 02/17/2021, 080 10/2018, 01/05/2017, Additional history exists HbA1c 03/25/2023 09/23/2022, 03/07, 09/03/2021, Additional history exists Albumin/Creatinine Ratio 03/30/2023 03/30/2022, 05/07 B-12 09/24/2023 09/23/2022, 07/2020, 09/02/2020, Additional history exists GFR 09/24/2023 09/23/2022, 03/07, 09/03/2021, Additional history exists Depression Screening 10/01/2023 09/30/2022 O2 ASSESSMENT COMPLETED IN PAST YEAR FOR COPD 06/09/2024 06/09/2023 Lipid Panel 03/30/2027 03/30/2022, 08/06, 07/21/2020, Additional history exists DTaP,Tdap,and Td Vaccines (3 - Td or Tdap) 09/18/2028 09/18/2018, 09/11/2008 Pneumococcal Vaccine: Pediatrics (0 to 5 Years) and At-Risk Patients (6 to 64 Years) (3 - PPSV23 or PCV20) 2034 05/20/2017, 04/19/2014, 04/14/2009 VITAMIN D LEVEL ONCE IN A LIFETIME-USE SMARTSET# [id number] Completed 09/23/2022, 09/03/2021, 08/30/2018, Additional history exists Influenza Vaccine (FLU shot) Completed , 03/12/2022, 02/06/2021, Additional history exists GARDASIL-HPV IMMUNIZATION SERIES Aged Out No longer eligible based on patient's age to complete this topic MENINGOCOCCAL (MENACTRA/MENVEO) Aged Out No longer eligible based on patient's age to complete this topic documented as of this encounter Medical Devices Not on filedocumented as of this encounter Additional Health Concerns Infection Onset Date Last Indicated Resolved Time RSV 06/09/2023 06/09/2023 documented as of this encounter Advance Directives Latest [...] the patient have Health Care Power of Sr. Manager Corporate Communications? No Care Teams Early Interventionist Relationship Specialty Start Date End Date Andrzej Downing MD [address] [facility] [place] [address] PCP - General Family Medicine 03/20/19 documented as of this encounter
--- OUTSIDE RECORDS SUMMARY | 2023-08-31 04:21 | External Medical Summary | Summary of Care ---
Author Name Unknown Organization [facility] Address [address] [place] [address] Phone [phone] Care Team Providers Care Draw Machine Operator Name Role Phone Andrzej Downing MD Primary Care Provider +1- [phone] Encounter Details Date Type Department Care Team (Late st Contact Info) Description 06/16/2023 Population Health External Data Unspecified Department Allergies Active Allergy Reactions Criticality Noted Date Comments Doxycycline Other (Please comment) Low 07/25/2013 Headache documented as of this encounter (statuses as of 06/20/2023) Medications Medication Sig Dispensed Refills Start Date [...] failure managing provider or [facility] Movie Producer. 1 Each 0 05/12/2018 Active Fluticasone Propionate 50 MCG/ACT Nasal Suspension (FLONASE)Indicatio ns:Nasal polyp Administer 2 Sprays into each nostril daily. Use in morning 48 g 3 05/27/2020 Active Additional Information Patient taking differently:2 [place] Each Nostril Daily(AM),Use in morning as needed, Indications: allergies, Reported on 04/22/2022 Azelastine HCl 0.1 % Nasal SolutionIndication s:Seasonal allergic rhinitis due to pollen Administer 1 [place] into nostril 2 times a day. 30 mL 12 09/12/2020 Active Additional Information Patient taking differently:1 [place] NasalBID PRN, Reported on 04/22/2022 Cromolyn Sodium [...] Respimat 2.5 MCG/ACT Inhalation Aerosol Solution (Tiotropium [place] Monohydrate)Indica tions:breathing Inhale by mouth 2 Puffs [...] c respiratory failure with hypoxia and hypercapnia ([facility]),Oxygen dependent Inhale 3 mL via nebulizer every [...] goal of less than 7.0% ([facility]) INJECT 1MG UNDER THE SKIN ONCE WEEKLY 3 mL 5 06/14/2023 Active Hospital, Clinic, or Other Facility Administered Medication Ordered Dose Route Frequency Start Date End Date Status albuterol sulfate (PROVENTIL) (2.5 MG/3ML) 0.083% inhalation solution 2.5 mgIndications:Pulmonary hypertension (HCC),Chronic right-sided heart failure (HCC),Sarcoidosis,Oxygen dependent 2.5 mg NEBULIZER Q4H PRN 06/03/2017 Active documented as of this encounter (statuses as of 06/20/2023) Active Problems Problem Noted Date Diagnosed Date [...] as of this encounter (statuses as of 06/20/2023) Resolved Problems Problem Noted Date Diagnosed Date [...] Paranasal sinus disease 07/19/201306/07 [employer] Other*[id number] 06/08/2013 07/13/2016 Overview: Study Title: Genomic Markers for Patients with Cardiovascular Disease Project # [id number] Busboy: Ariana Brady MD [phone] HTN, goal below 130/80 06/03/201302/25 Cholecystolithiasis 09/20/2012 07/02/19 19 Obesity, Class III, BMI 40-4 9.9 (morbid obesity) 12/23/2011 01/05/2017 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 current use of systemic steroids 11/05/2011 07/02/2018 [...] as of this encounter (statuses as of 06/20/2023) Immunizations Name Administration Dates Next Due COVID-19 [...] 2:00 PM EDT Cardiac Studies Cardiac Studies, [facility] 132 [facility] [place] [address] 09/05/2023 1:00 PM EDT Office Visit Cardiology, [facility] [address] [facility] [place] [address] Tresa Hammonds CRNP [facility] [place] [address] 10/06/2023 2:20 PM EDT Office Visit Family [facility] [address] [place] [address] Andrzej Downing MD [address] [place] [address] 11/16/2023 11:30 AM EDT Imaging Radiology, [address] [place] [address] 11/16/2023 1:00 PM EDT Office Visit Rheumatology [address] [address] Faustino Delgado MD [address] [place] [address] [place] [address] 02/15/2024 2:30 PM EDT Nutrition Services Nutrition & Weight Management, [facility] 132 [facility] [place] [address] Louise Zarate RDN 132 [place] [address] Health Maintenance Due Date Last Done Comments [...] 2023 08/08/2020, 07/11/2020 DXA Scan 02/17/2023 02/17/2021, 10/2018, 01/05/2017, Additional history exists HbA1c 03/25/2023 [...] D LEVEL ONCE IN A LIFETIME-USE SMARTSET# [id number] Completed 09/23/2022, 09/03/2021, 08/30/2018, Additional history exists [...] the patient have Health Care Power of Compensation Advisor? No Care Teams Draw Machine Operator Relationship Specialty Start Date End Date Andrzej Downing MD [address] [place] [address] PCP - General Family Medicine 03/20/19 documented as of this encounter
--- OUTSIDE RECORDS SUMMARY | 2023-08-31 04:21 | External Medical Summary | Summary of Care ---
Author Name Unknown Organization [facility] Address [address] [place] [address] Phone [phone] Care Team Providers Care Rn Social Services Name Role Phone Andrzej Downing MD Primary Care Provider [phone]- [phone] Reason for Visit * Reason Comments eRx-Medication Refill Encounter Details Date Type Department Care Team (Late st Contact Info) Description 07/01/2023 Refill Pulmonary Medicine, [facility] [address] [place] [address] Jose Dsouza MD [address] [place] [address] Allergies Active Allergy Reactions Criticality Noted Date Comments Doxycycline Other (Please comment) Low 07/25/2013 Headache documented as of this encounter (statuses as of 07/02/2023) Medications Medication Sig Dispensed Refills Start Date [...] failure managing provider or [facility] [employer] Hel[employer]. 1 Each 0 8 Active Fluticasone Propionate 50 MCG/ACT Nasal Suspension (FLONASE)Indicati ons:Nasal polyp Administer 2 Sprays into each nostril daily. Use in morning 48 g 3 0 Active Additional Information Patient taking differently:2 [place] Each Nostril Daily(AM),Use in morning as needed, Indications: allergies, Reported on 04/22/2022 Azelastine HCl 0.1 % Nasal SolutionIndicatio ns:Seasonal allergic rhinitis due to pollen Administer 1 [place] into nostril 2 times a day. 30 mL 12 1 Active Additional Information Patient taking differently:1 [place] NasalBID PRN, Reported on 04/22/2022 Cromolyn Sodium 4 % Ophthalmic Solution (Crolom)Indicatio ns:Seasonal allergic rhinitis due to pollen Instill 1 Drop into both eyes 4 times a day as needed for Allergies or Itching. 10 mL 1 1 Active Multi Vitamin Daily Oral Tablet Take by mouth . 1 daily 0 Active Vitamin C 250 MG Oral Tablet (Ascorbic Acid) Take 1 Tablet by mouth in the morning. 2 to 3 tabs daily . 0 Active Spiriva Respimat 2.5 MCG/ACT Inhalation Aerosol Solution (Tiotropium [place] Monohydrate)Indic ations:breathing Inhale by mouth 2 Puffs in the morning. 4 g 3 2 Active Lidocaine 4 % External Patch (Aspercreme) Place 1 Patch topically on the skin daily. 0 Active oxygen IN GASIndications:Se madan obstructive sleep [...] once daily 90 Capsule 1 3 Active Terbinafine HCl 1 % External Cream (LamISIL AT ATHLETE'S FOOT)Indications: Cellulitis of umbilicus Apply cream to affected area of umbilicus 2 times per day for up to 4 weeks 15 g 1 3 Active metFORMIN HCl ER 500 [...] goal of less than 7.0% ([facility]) INJECT 1MG UNDER THE SKIN ONCE WEEKLY 3 mL 5 4 Active Albuterol Sulfate HFA 108 (90 Base) MCG/ACT Inhalation Aerosol Solution INHALE 2 PUFFS BY MOUTH EVERY 4 HOURS NEEDED FOR COUGH, SHORTNESS OF BREATH OR WHEEZING. 18 g 5 4 Active Albuterol Sulfate HFA 108 (90 Base) MCG/ACT Inhalation Aerosol Solution Inhale 2 Puffs by mouth every 4 hours as needed for Cough, Shortness of Breath or Wheezing. 18 g 11 2 07/02/19 24 Discontinued Hospital, Clinic, or Other Facility Administered Medication Ordered Dose Route Frequency Start Date End Date Status albuterol sulfate (PROVENTIL) (2.5 MG/3ML) 0.083% inhalation solution 2.5 mgIndications:Pulmonary hypertension (HCC),Chronic right-sided heart failure (HCC),Sarcoidosis,Oxygen dependent 2.5 mg NEBULIZER Q4H PRN 06/03/2017 Active documented as of this encounter (statuses as of 07/02/2023) Active Problems Problem Noted Date Diagnosed Date [...] as of this encounter (statuses as of 07/02/2023) Resolved Problems Problem Noted Date Diagnosed Date [...] Paranasal sinus disease 07/19/201306/07 [employer] Other*[id number] 06/08/2013 07/13/2016 Overview: Study Title: Genomic Markers for Patients with Cardiovascular Disease Project # [id number] Route Carrier: Ariana Brady MD [phone] HTN, goal below 130/80 06/03/201302/25 Cholecystolithiasis 09/20/2012 07/02/19 19 Obesity, Class III, BMI 40-4 9.9 (morbid obesity) 12/23/2011 01/05/2017 alf current use of systemic steroids 11/05/2011 07/02/2018 [...] as of this encounter (statuses as of 07/02/2023) Immunizations Name Administration Dates Next Due COVID-19 [...] encounter Miscellaneous Notes * Telephone Encounter - Jose Dsouza MD - 07/02/2023 9:56 AM ESTSigned Prescriptions: Disp Refills Albuterol Sulfate HFA 108 (90 Base) MCG/AC*18 g 5 Sig: INHALE 2 PUFFS BY MOUTH EVERY 4 HOURS NEEDED FOR COUGH, SHORTNESS OF BREATH OR WHEEZING. Authorizing Provider: JOSE DSOUZA * Telephone Encounter - [facility] - 07/01/2023 7:11 PM EST Pending Prescriptions: Disp Refills Albuterol Sulfate HFA 108 (90 Base) MCG/AC*18 g 5 Sig: INHALE 2 PUFFS BY MOUTH EVERY 4 HOURS NEEDED FOR COUGH, SHORTNESS OF BREATH OR WHEEZING. * Telephone Encounter - T[facility] - 07/01/2023 7:09 PM EST Did you pend patient's preferred pharmacy and medication before forwarding?yes Pharmacy: [id number] Pending Prescriptions: Disp Refills Albuterol Sulfate HFA 108 (90 Base) MCG/A*18 g 5 Sig: INHALE 2 PUFFS BY MOUTH EVERY 4 HOURS NEEDED FOR COUGH, SHORTNESS OF BREATH OR WHEEZING. Last Visit: 06/09/2023 (in office), 09/12/2020 (telemedicine) Next Visit: 10/06/2023 If no future appointments scheduled, and last appointment is greater than a year ago, please schedule patient for a follow-up appointment Last date the medication was ordered: 05/11/22 Is this request for a controlled substance?No Urine Drug Screen:No results found. However, due to the size of the patient record, not all encounters were searched. Please check Results Review for a complete set of results. Patient Phone Numbers Labs: Lab Results Component Value Date/Time CREAT 1.1 09/23/2022 04:02 PM CREAT 1.3 (H) 02/28/2020 04:19 PM POTASSIUM 4.0 09/23/2022 04:02 PM POTASSIUM 3.7 02/28/2020 04:19 PM TSH 0.95 09/02/2020 03:36 PM TSH 2.14 02/17/2018 01:59 PM LDLCALC 100 03/30/2022 01:08 PM LDLCALC 94 03/07/2019 05:00 PM LDLDIRECT NOT APPLICABLE 03/07/2019 05:00 PM ALT 19 09/23/2022 04:02 PM ALT 45 02/28/2020 04:19 PM HGBA1C 5.4 09/23/2022 04:02 PM HGBA1C 6.3 (H) 02/28/2020 04:19 PM documented in this encounter Plan of Treatment Upcoming Encounters Date Type Department Care Team (Late st Contact Info) Description 08/31/2023 2:00 PM EDT Cardiac Studies Cardiac Studies, [facility] [address] [place] [address] 09/05/2023 1:00 PM EDT Office Visit Cardiology, [facility] [address] [place] [address] Tresa Hammonds CRNP [address] [place] [address] 10/06/2023 2:20 PM EDT [facility] [address] [place] [address] Andrzej Downing MD [address] [place] [address] 11/16/2023 11:30 AM EDT Imaging Radiology, [address] [place] [address] 11/16/2023 1:00 PM EDT Office Visit Rheumatology [address] [place] [address] Faustino Delgado MD [address] [place] [address] [place] [address] 02/15/2024 2:30 PM EDT Nutrition Services Nutrition & Weight Management, [facility] [address] [place] [address] Louise Zarate RDN [address] [place] [address] Health Maintenance Due Date Last Done Comments [...] COPD 06/09/2024 06/09/2023 Lipid Panel 03/30/2027 03/30/2022, 0306/2021, 07/21/2020, Additional history exists DTaP,Tdap,and Td Vaccines (3 - Td or Tdap) 09/18/2028 09/18/2018, 09/11/2008 Pneumococcal Vaccine: Pediatrics (0 to 5 Years) and At-Risk Patients (6 to 64 Years) (3 - PPSV23 or PCV20) 2034 05/20/2017, 04/19/2014, 04/14/2009 VITAMIN D LEVEL ONCE IN A LIFETIME-USE SMARTSET# [id number] Completed 09/23/2022, 09/03/2021, 08/30/2018, Additional history exists [...] the patient have Health Care Power of Costume Shop Manager? No Care Teams Rn Social Services Relationship Specialty Start Date End Date Andrzej Downing MD [address] [place] [address] PCP - General Family Medicine 03/20/19 documented as of this encounter
--- OUTSIDE RECORDS SUMMARY | 2023-08-31 04:22 | External Medical Summary | Summary of Care ---
Author Name Unknown Organization [facility] Address [address] [place] [address] Phone [phone] Care Team Providers Care Track Laminating Machine Tender Name Role Phone Tj Anderson MD Primary Care Provider [phone]- [phone] Reason for Visit * Reason Onset Date Comments Medication Refill 06/14/2023 Encounter Details Date Type Department Care Team (Late st Contact Info) Description 06/14/2023 Grease And Tallow Pumper Telephone Care Coordination and Integration [address] [place], [place] [id number] Payal Phillips, LYNNE [address] [place] [address] Medication Refill Allergies Active Allergy Reactions Criticality Noted Date Comments Doxycycline Other (Please comment) Low 07/25/2013 Headache documented as of this encounter (statuses as of 06/14/2023) Medications Medication Sig Dispensed Refills Start Date End Date Status NEBULIZER COMPRESSOR MISCIndications:S hortness of breath,Wheezing,S arcoidosis Use as directed 1 Each 1 04/19/2011 Active NEBULIZER/TUBING/ MOUTHPIECE KITIndications:Sh ortness of breath,Wheezing,S arcoidosis use with nebs 1 Kit 11 04/19/2011 Active ASPIRIN 81 MG PO TABS 1 tablet by mouth daily 0 Active Misc. Devices MISC Use as directed. BIPAP at night 0 Active Glucose Blood (ONETOUCH VERIO) STRP Use up to 4 times a day E11.9 100 Strip 11 03/02/2018 Active ONETOUCH ULTRASOFT LANCETS MIS Use as directed 4 times a day as needed for Hyperglycemia (high sugar) or Hypoglycemia (low sugar). Use up to four times a day as directed 1 Box Dosing Unit 11 03/02/2018 Active DIURETIC TITRATION PLAN If no improvement on day 3, contact heart failure managing provider or [facility] Grease And Tallow Pumper. 1 Each 0 05/12/2018 Active Fluticasone Propionate 50 MCG/ACT Nasal Suspension (FLONASE)Indicati ons:Nasal polyp Administer 2 Sprays into each nostril daily. Use in morning 48 g 3 05/27/2020 Active Additional Information Patient taking differently:2 [place] Each Nostril Daily(AM),Use in morning as needed, Indications: allergies, Reported on 04/22/2022 Azelastine HCl 0.1 % Nasal SolutionIndicatio ns:Seasonal allergic rhinitis due to pollen Administer 1 [place] into nostril 2 times a day. 30 mL 12 09/12/2020 Active Additional Information Patient taking differently:1 [place] NasalBID PRN, Reported on 04/22/2022 Cromolyn Sodium [...] Respimat 2.5 MCG/ACT Inhalation Aerosol Solution (Tiotropium [place] Monohydrate)Indic ations:breathing Inhale by mouth 2 Puffs [...] 18 g 11 05/11/2022 Active oxygen IN GASIndications:Se madan obstructive sleep [...] 04/06/2023 Active Empagliflozin 25 MG Oral Tablet (Jardiance)Indica tions:Type 2 diabetes mellitus with hemoglobin A1c goal of less than 7.0% (HCC) take 1 tablet by mouth once daily 90 Tablet 1 04/06/2023 Active metOLazone 2.5 MG Oral Tablet (Zaroxolyn)Indica tions:Hypertensiv e heart disease with chronic right-sided congestive heart failure (HCC) Take 2.5 mg daily for three days when weight increases 3 pounds in 24 hours or 5 pounds in one week. 30 Tablet 0 05/27/2023 Active Ipratropium-Albut floyd 0.5-2.5 (3) MG/3ML Inhalation Solution (Duoneb)Indicatio ns:Shortness of breath,Chronic obstructive pulmonary disease with acute exacerbation (HCC),Pulmonary hypertension associated with sarcoidosis,Chron ic respiratory failure with hypoxia and hypercapnia (HCC),Oxygen dependent Inhale 3 mL via nebulizer every 6 hours as needed for Wheezing or Shortness of Breath (cough). 21 mL 1 06/09/2023 Active predniSONE 20 MG Oral Tablet (Deltasone)Indica tions:Shortness of breath,Chronic obstructive pulmonary disease with acute exacerbation (HCC),Pulmonary hypertension associated with sarcoidosis,Chron ic respiratory failure with hypoxia and hypercapnia (HCC),Oxygen dependent Take 2 Tablets by mouth in the morning for 5 days. 10 Tablet 0 06/09/2023 06/14/19 24 Active Loratadine 10 MG Oral Tablet (Claritin)Indicat ions:Shortness of breath,Chronic obstructive pulmonary disease with acute exacerbation (HCC),Pulmonary hypertension associated with sarcoidosis,Chron ic respiratory failure with hypoxia and hypercapnia (HCC),Oxygen [...] 06/14/2023 Active Torsemide 20 MG Oral Tablet (Demadex)Indicati ons:Chronic right-sided heart failure (HCC),Congestive heart failure with LV diastolic dysfunction, NYHA class 3 ([facility]) take 4 tablets by mouth twice a day 240 Tablet 11 06/14/2023 Active Ozempic (1 MG/DOSE) 4 MG/3ML Subcutaneous Solution Pen-injector (Semaglutide (1 MG/DOSE))Indicati ons:Type 2 diabetes mellitus with hemoglobin A1c goal of less than 7.0% ([facility]) INJECT 1MG UNDER THE SKIN ONCE WEEKLY 3 mL 5 06/14/2023 Active Torsemide 20 MG Oral Tablet (Demadex)Indicati ons:Chronic right-sided heart failure (HCC),Congestive heart failure with LV diastolic dysfunction, NYHA class 3 (HCC) take 4 tablets by mouth twice a day 240 Tablet 11 07/27/2022 06/14/19 24 Discontinu ed(Refill) Folic Acid 1 MG Oral Tablet take 1 tablet by mouth once daily 90 Tablet 2 12/24/2022 06/14/19 24 Discontinu ed(Refill) Hospital, Clinic, or Other Facility Administered Medication Ordered Dose Route Frequency Start Date End Date Status albuterol sulfate (PROVENTIL) (2.5 MG/3ML) 0.083% inhalation solution 2.5 mgIndications:Pulmonary hypertension (HCC),Chronic right-sided heart failure (HCC),Sarcoidosis,Oxygen dependent 2.5 mg NEBULIZER Q4H PRN 06/03/2017 Active documented as of this encounter (statuses as of 06/14/2023) Active Problems Problem Noted Date Diagnosed Date [...] as of this encounter (statuses as of 06/14/2023) Resolved Problems Problem Noted Date Diagnosed Date [...] Paranasal sinus disease 07/19/201306/07 [employer] Other*[id number] 06/08/2013 07/13/2016 Overview: Study Title: Genomic Markers for Patients with Cardiovascular Disease Project # [id number] Plant Hr Manager: Ariana Brady MD [phone] HTN, goal below 130/80 06/03/201302/25 Cholecystolithiasis 09/20/2012 07/02/19 19 Obesity, Class III, BMI 40-4 9.9 (morbid obesity) 12/23/2011 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 11/05/2011 07/02/2018 [...] as of this encounter (statuses as of 06/14/2023) Immunizations Name Administration Dates Next Due COVID-19 [...] encounter Miscellaneous Notes * Telephone Encounter - Tj Anderson MD - 06/14/2023 6:43 PM ESTSigned Prescriptions: Disp Refills Folic Acid 1 MG Oral Tablet 90 Tab*3 Sig: Take 1 Tablet by mouthin the morning.Authorizing Provider: TJ ANDERSON Torsemide 20 MG Oral Tablet (Demadex) 240 Ta*11 Sig: take 4 tablets by mouth twice a dayAuthorizing Provider: TJ ANDERSON * Telephone Encounter - Payal Phillips RN - 06/14/2023 1:28 PM EST Patient calls in requesting a refill for Folic Acid & Torsemide, please send to [facility] in [place] Payal Phillips, RN documented in this encounter Plan of Treatment Upcoming Encounters Date Type Department Care Team (Late st Contact Info) Description 08/31/2023 2:00 PM EDT Cardiac Studies Cardiac Studies, [facility] [address] [facility] [place] [address] 09/05/2023 1:00 PM EDT Office Visit Cardiology, [address] [place] [address] Tresa Hammonds CRNP [address] [facility] [place] [address] 10/06/2023 2:20 PM EDT [facility] [address] [place] [address] Tj Anderson MD [address] [place] [address] 11/16/2023 11:30 AM EDT Imaging Radiology, [address] [place] [address] 11/16/2023 1:00 PM EDT Office Visit Rheumatology [address] [place] [address] Faustino Delgado MD [address] [place] [address] [place] [address] 02/15/2024 2:30 PM EDT Nutrition Services Nutrition & Weight Management, [facility] [address] [facility] [place] [address] Louise Zarate RDN [facility] [place] [address] Health Maintenance Due Date Last Done Comments [...] Ratio 03/30/2023 03/30/2022, 05/07 B-12 09/24/2023 09/23/2022, 09/0 07/2020, 09/02/2020, Additional history exists GFR 09/24/2023 [...] D LEVEL ONCE IN A LIFETIME-USE SMARTSET# [id number] Completed 09/23/2022, 09/03/2021, 08/30/2018, Additional history exists [...] as of this encounter Visit Diagnoses Diagnosis Chronic right-sided heart failure (HCC) Congestive heart failure, unspecified Congestive heart failure with LV diastolic dysfunction, NYHA class 3 (HCC) Unspecified diastolic heart failure documented in this encounter Additional Health Concerns Infection Onset [...] the patient have Health Care Power of Grease And Tallow Pumper? No Care Teams Track Laminating Machine Tender Relationship Specialty Start Date End Date Tj Anderson MD [address] [place] [address] PCP - General Family Medicine 03/20/19 documented as of this encounter
--- OUTSIDE RECORDS SUMMARY | 2023-08-31 04:22 | External Medical Summary | Summary of Care ---
Author Name Unknown Organization [facility] Address [address] [place] [address] Phone [phone] Care Team Providers Care Piece Dyer Name Role Phone Andrzej Downing MD Primary Care Provider [phone]- [phone] Reason for Visit * Reason Comments eRx-Medication Refill Encounter Details Date Type Department Care Team (Late st Contact Info) Description 06/09/2023 Refill Pulmonary Medicine, [place] [address], [place] [id number] Louise Corbett CRNP [address] [place] [address] Allergies Active Allergy Reactions Criticality Noted Date Comments Doxycycline Other (Please comment) Low 07/25/2013 Headache documented as of this encounter (statuses as of 06/09/2023) Medications Medication Sig Dispensed Refills Start Date [...] failure managing provider or [facility] Supervisor Extruding Department. 1 Each 0 05/12/2018 Active Fluticasone Propionate 50 MCG/ACT Nasal Suspension (FLONASE)Indicati ons:Nasal polyp Administer 2 Sprays into each nostril daily. Use in morning 48 g 3 05/27/2020 Active Additional Information Patient taking differently:2 [place] Each Nostril Daily(AM),Use in morning as needed, Indications: allergies, Reported on 04/22/2022 Azelastine HCl 0.1 % Nasal SolutionIndicatio ns:Seasonal allergic rhinitis due to pollen Administer 1 [place] into nostril 2 times a day. 30 mL 12 09/12/2020 Active Additional Information Patient taking differently:1 [place] NasalBID PRN, Reported on 04/22/2022 Cromolyn Sodium [...] Respimat 2.5 MCG/ACT Inhalation Aerosol Solution (Tiotropium Ellis Monohydrate)Indic ations:breathing Inhale by mouth 2 Puffs [...] during sleep 1 Each 0 07/21/2022 Active Torsemide 20 MG Oral Tablet (Demadex)Indicati ons:Chronic right-sided heart failure (HCC),Congestive heart failure with LV diastolic dysfunction, NYHA class 3 (HCC) take 4 tablets by mouth twice a day 240 Tablet 11 07/27/2022 Active Breo Ellipta 200-25 MCG/ACT Inhalation Aerosol Powder Breath Activated (fluticasone furoate-vilantero l) inhale 1 puff by mouth and INTO THE LUNGS every morning 60 Blister Dosing Unit 3 07/26/2022 Active Losartan Potassium 25 MG Oral Tablet (Cozaar)Indicatio ns:Chronic right-sided heart failure (HCC),Essential hypertension with goal blood pressure less than 130/80 take 1 tablet by mouth daily 90 Tablet 3 09/13/2022 Active Spironolactone 25 MG Oral Tablet (Aldactone) take 1 tablet by mouth three times a day 270 Tablet 3 10/03/2022 Active Montelukast Sodium 10 MG Oral Tablet (Singulair)Indica tions:Increased nasal secretion take 1 tablet by mouth at bedtime 90 Tablet 3 11/03/2022 Active FeroSul 325 (65 Fe) MG Oral Tablet (Ferrous Sulfate)Indicatio ns:Iron 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 30 Tablet 0 05/27/2023 Active Ozempic (1 MG/DOSE) 4 MG/3ML Subcutaneous Solution Pen-injector (Semaglutide (1 MG/DOSE))Indicati ons:Type 2 diabetes mellitus with hemoglobin A1c goal of less than 7.0% (HCC) INJECT 1MG UNDER THE SKIN ONCE WEEKLY 3 mL 5 06/07/2023 Active Ipratropium-Albut floyd 0.5-2.5 (3) MG/3ML Inhalation [...] the morning. 30 Tablet 5 06/09/2023 Active Digoxin 125 MCG Oral Tablet (Lanoxin) Take 1 Tablet by mouth in the morning. 90 Tablet 3 06/09/2023 Active Digoxin 125 MCG Oral Tablet (Lanoxin) Take 1 Tablet by mouth in the morning. 90 Tablet 3 06/22/2022 06/09/19 24 Discontinu ed(Refill) Hospital, Clinic, or Other Facility Administered Medication Ordered Dose Route Frequency Start Date End Date Status albuterol sulfate (PROVENTIL) (2.5 MG/3ML) 0.083% inhalation solution 2.5 mgIndications:Pulmonary hypertension (HCC),Chronic right-sided heart failure (HCC),Sarcoidosis,Oxygen dependent 2.5 mg NEBULIZER Q4H PRN 06/03/2017 Active documented as of this encounter (statuses as of 06/09/2023) Active Problems Problem Noted Date Diagnosed Date [...] as of this encounter (statuses as of 06/09/2023) Resolved Problems Problem Noted Date Diagnosed Date [...] Paranasal sinus disease 07/19/201306/07 [employer] Other*[id number] 06/08/2013 07/13/2016 Overview: Study Title: Genomic Markers for Patients with Cardiovascular Disease Project # [id number] [employer] Melter: Ariana Brady MD [phone] HTN, goal below 130/80 06/03/201302/25 Cholecystolithiasis 09/20/2012 07/02/19 19 Obesity, Class III, BMI 40-4 9.9 (morbid obesity) 12/23/2011 01/05/2017 [facility] current use of systemic steroids 11/05/2011 07/02/2018 [...] as of this encounter (statuses as of 06/09/2023) Immunizations Name Administration Dates Next Due COVID-19 [...] encounter Miscellaneous Notes * Telephone Encounter - Zina Delaney OSA - 06/09/2023 11:51 AM EST Please forward this prescription to Dr Andrzej Downing * Telephone Encounter - Zina Delaney OSA - 06/09/2023 11:51 AM ESTRefused Prescriptions: Disp Refills Digoxin 125 MCG Oral Tablet (Lanoxin) 30 Tab*0 Sig: TAKE 1 TABLET BY MOUTH ONCE DAILY Refused By: ZINA DELANEY Reason for Refusal: Managed by another physician documented in this encounter Plan of Treatment Upcoming Encounters Date Type Department Care Team (Late st Contact Info) Description 08/31/2023 2:00 PM EDT Cardiac Studies Cardiac Studies, [facility] [address] [facility] [place] [address] 09/05/2023 1:00 PM EDT Office Visit Cardiology, [address] [place] [address] Tresa Hammonds CRNP [address] [facility] [place] [address] 10/06/2023 2:20 PM EDT Office Visit Family [facility] [address] [place] [phone] Andrzej Downing MD [address] [place] [address] 11/16/2023 11:30 AM EDT Imaging Radiology, [address] [place] [address] 11/16/2023 1:00 PM EDT Office Visit Rheumatology [address] [place] [address] Faustino Delgado MD [address] [place] [address] [place] [address] 02/15/2024 2:30 PM EDT Nutrition Services Nutrition & Weight Management, [facility] [address] [facility] [place] [address] Louise Zarate RDN 132 [facility] [place] [address] Health Maintenance Due Date Last Done Comments [...] 04/06/2019, Additional history exists COVID-19 Vaccine ( - 2022- season) 2023 08/08/2020, 07/11/2020 DXA Scan 02/17/2023 02/17/2021, 10/2018, 01/05/2017, Additional history exists HbA1c 03/25/2023 09/23/2022, 03/07, 09/03/2021, Additional history exists Albumin/Creatinine Ratio 03/30/2023 03/30/2022, 05/07 B-12 09/24/2023 09/23/2022, 07/2020, 09/02/2020, Additional history exists GFR 09/24/2023 09/23/2022, 03/07, 09/03/2021, Additional history exists Depression Screening 10/01/2023 09/30/2022 O2 ASSESSMENT COMPLETED IN PAST YEAR FOR COPD 04/04/2024 06/09/2023 Lipid Panel 03/30/2027 03/30/2022, 08/06, 07/21/2020, Additional history exists DTaP,Tdap,and Td Vaccines (3 - Td or Tdap) 09/18/2028 09/18/2018, 09/11/2008 Pneumococcal Vaccine: Pediatrics (0 to 5 Years) and At-Risk Patients (6 to 64 Years) (3 - PPSV23 or PCV20) 2034 05/20/2017, 04/19/2014, 04/14/2009 VITAMIN D LEVEL ONCE IN A LIFETIME-USE SMARTSET# [id number] Completed 09/23/2022, 09/03/2021, 08/30/2018, Additional history exists [...] Infection Onset Date Last Indicated Resolved Time Respiratory Rule-Out 06/09/2023 06/09/2023 documented as of this encounter [...] the patient have Health Care Power of Program Support Specialist? No Care Teams Piece Dyer Relationship Specialty Start Date End Date Andrzej Downing MD [address] [place] [address] PCP - General Family Medicine 03/20/19 documented as of this encounter
--- OUTSIDE RECORDS SUMMARY | 2023-08-31 04:22 | External Medical Summary | Summary of Care ---
Author Name Unknown Organization [facility] Address [address] [place] [address] Phone [phone] Care Team Providers Care Program Clerk Name Role Phone Tj Anderson MD Primary Care Provider [phone]- [phone] Reason for Visit * Reason Comments eRx-Medication Refill Encounter Details Date Type Department Care Team (Late st Contact Info) Description 06/13/2023 Refill [facility] [address] [place] [address] Tj Anderson MD [address] [place] [address] Allergies Active Allergy Reactions Criticality Noted Date Comments Doxycycline Other (Please comment) Low 07/25/2013 Headache documented as of this encounter (statuses as of 06/14/2023) Medications Medication Sig Dispensed Refills Start Date End Date Status NEBULIZER COMPRESSOR MISCIndications:S hortness of breath,Wheezing,S arcoidosis Use as directed 1 Each 1 Active NEBULIZER/TUBING/ MOUTHPIECE KITIndications:Sh ortness of [...] failure managing provider or [facility] Electrician [employer]. 1 Each 0 8 Active Fluticasone Propionate 50 MCG/ACT Nasal Suspension (FLONASE)Indicati ons:Nasal polyp Administer 2 Sprays into each nostril daily. Use in morning 48 g 3 0 Active Additional Information Patient taking differently:2 [place] Each Nostril Daily(AM),Use in morning as needed, Indications: allergies, Reported on 04/22/2022 Azelastine HCl 0.1 % Nasal SolutionIndicatio ns:Seasonal allergic rhinitis due to pollen Administer 1 [place] into nostril 2 times a day. 30 mL 12 1 Active Additional Information Patient taking differently:1 [place] NasalBID PRN, Reported on 04/22/2022 Cromolyn Sodium [...] Respimat 2.5 MCG/ACT Inhalation Aerosol Solution (Tiotropium [place] Monohydrate)Indic ations:breathing Inhale by mouth 2 Puffs in the morning. 4 g 3 2 Active Lidocaine 4 % External Patch (Aspercreme) Place 1 Patch topically on the skin daily. 0 Active Albuterol Sulfate HFA 108 (90 Base) MCG/ACT Inhalation Aerosol Solution Inhale 2 Puffs by mouth every 4 hours as needed for Cough, Shortness of Breath or Wheezing. 18 g 11 2 Active oxygen IN GASIndications:Se madan obstructive sleep apnea,Pulmonary hypertension (HCC),Sarcoidosis of lung (HCC) 2 LPM during rest, 3 LPM while ambulating, 4 LPM through Trilogy during sleep 1 Each 0 3 Active Torsemide 20 MG Oral Tablet (Demadex)Indicati ons:Chronic right-sided heart failure (HCC),Congestive heart failure with LV diastolic dysfunction, NYHA class 3 ([facility]) take 4 tablets by mouth twice a day 240 Tablet 11 3 Active Breo Ellipta 200-25 MCG/ACT Inhalation [...] a day 180 Tablet 1 3 Active Folic Acid 1 MG Oral Tablet take 1 tablet by mouth once daily 90 Tablet 2 3 Active Citalopram Hydrobromide 20 MG Oral [...] goal of less than 7.0% ([facility]) take 1 tablet by mouth once daily 90 Tablet 1 3 Active metOLazone 2.5 MG Oral Tablet (Zaroxolyn)Indica tions:Hypertensiv e heart disease with chronic right-sided congestive heart failure (HCC) Take 2.5 mg daily for three days when weight increases 3 pounds in 24 hours or 5 pounds in one week. 30 Tablet 0 3 Active Ozempic (1 MG/DOSE) 4 MG/3ML Subcutaneous Solution Pen-injector (Semaglutide (1 MG/DOSE))Indicati ons:Type 2 diabetes mellitus with hemoglobin A1c goal of less than 7.0% (HCC) INJECT 1MG UNDER THE SKIN ONCE WEEKLY 3 mL 5 4 Active Ipratropium-Albut floyd 0.5-2.5 (3) MG/3ML Inhalation Solution (Duoneb)Indicatio ns:Shortness of breath,Chronic obstructive pulmonary disease with acute exacerbation (HCC),Pulmonary hypertension associated with sarcoidosis,Chron ic respiratory failure with hypoxia and hypercapnia (HCC),Oxygen dependent Inhale 3 mL via nebulizer every 6 hours as needed for Wheezing or Shortness of Breath (cough). 21 mL 1 4 Active predniSONE 20 MG Oral Tablet (Deltasone)Indica tions:Shortness of breath,Chronic obstructive pulmonary disease with acute exacerbation (HCC),Pulmonary hypertension associated with sarcoidosis,Chron ic respiratory failure with hypoxia and hypercapnia (HCC),Oxygen dependent Take 2 Tablets by mouth in the morning for 5 days. 10 Tablet 0 4 06/14/19 24 Active Loratadine 10 MG Oral [...] A DAY 270 Tablet 1 4 Active Spironolactone 25 MG Oral Tablet (Aldactone) take 1 tablet by mouth three times a day 270 Tablet 3 3 06/14/19 24 Discontinued Hospital, Clinic, or Other Facility [...] Paranasal sinus disease 07/19/201306/07 [employer] Other*[id number] 06/08/2013 07/13/2016 Overview: Study Title: [employer] Markers for Patients with Cardiovascular Disease Project # [id number] Sail Repair Person: Ariana Brady MD [phone] HTN, goal below 130/80 06/03/201302/25 Cholecystolithiasis 09/20/2012 07/02/19 19 Obesity, Class III, BMI 40-4 9.9 (morbid obesity) 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 11/05/2011 07/02/2018 [...] encounter Miscellaneous Notes * Telephone Encounter - Dc Olivera [facility] - 06/14/2023 1:18 PM EST Signed Prescriptions: Disp Refills Spironolactone 25 MG Oral Tablet (Aldacton*270 Ta*1 Sig: TAKE 1 TABLET BY MOUTH THREE TIMES A DAYAuthorizing Provider: TJ ANDERSON User: DC OLIVERA documented in this encounter Plan of Treatment Upcoming Encounters Date Type Department Care Team (Late st Contact Info) Description 06/14/2023 2:00 PM EST Scheduled Telephone Pulmonary Medicine, [place] [address] [facility] [address] [place], Nurse Phone Call Pulmonary Agc3 [address] [place] [facility] [address] 08/31/2023 2:00 PM EDT Cardiac Studies Cardiac Studies, [facility] [address] [place] [address] 09/05/2023 1:00 PM EDT Office Visit Cardiology, [facility] [address] [place] [address] Tresa Hammonds CRNP [address] [place] [address] 10/06/2023 2:20 PM EDT Office Visit Family Practice, [place] [address] [place] [phone] Tj Anderson MD [address] [place] [address] 11/16/2023 11:30 AM EDT Imaging Radiology, [address] [place] [address] 11/16/2023 1:00 PM EDT Office Visit Rheumatology [address] [place] [address] Faustino Delgado MD [address] [place] [address] [place] [address] 02/15/2024 2:30 PM EDT Nutrition Services Nutrition & Weight Management, [facility] [address] [place] [address] [place] Zarate RDN [address] [place] [address] Health Maintenance Due Date Last Done Comments [...] D LEVEL ONCE IN A LIFETIME-USE SMARTSET# [id number] Completed 09/23/2022, 09/03/2021, 08/30/2018, Additional history exists [...] the patient have Health Care Power of Bow Maker Production? No Care Teams Program Clerk Relationship Specialty Start Date End Date Tj Anderson MD [address] [place] [address] PCP - General Family Medicine 03/20/19 documented as of this encounter
--- OUTSIDE RECORDS SUMMARY | 2023-08-31 04:22 | External Medical Summary | Summary of Care ---
Author Name Unknown Organization [facility] Address [address] [place] [address] Phone [phone] Care Team Providers Care Mandrel Maker Name Role Phone Tj Anderson MD Primary Care Provider +1- [phone] Reason for Visit * Reason Comments eRx-Medication Refill Encounter Details Date Type Department Care Team (Late st Contact Info) Description 06/09/2023 Refill [facility] [address] [place] [address] jT Anderson MD [address] [place] [address] Type 2 diabetes mellitus with hemoglobin A1c goal of less than 7.0% ([facility]); Iron deficiency anemia secondary to inadequate dietary iron intake Allergies Active Allergy Reactions Criticality Noted Date Comments Doxycycline Other (Please comment) Low 07/25/2013 Headache documented as of this encounter (statuses as of 06/10/2023) Medications Medication Sig Dispensed Refills Start Date [...] failure managing provider or [facility] Sub Arc Operator. 1 Each 0 8 Active Fluticasone Propionate 50 MCG/ACT Nasal Suspension (FLONASE)Indicati ons:Nasal polyp Administer 2 Sprays into each nostril daily. Use in morning 48 g 3 0 Active Additional Information Patient taking differently:2 [place] Each Nostril Daily(AM),Use in morning as needed, Indications: allergies, Reported on 04/22/2022 Azelastine HCl 0.1 % Nasal SolutionIndicatio ns:Seasonal allergic rhinitis due to pollen Administer 1 [place] into nostril 2 times a day. 30 mL 12 1 Active Additional Information Patient taking differently:1 [place] NasalBID PRN, Reported on 04/22/2022 Cromolyn Sodium [...] Respimat 2.5 MCG/ACT Inhalation Aerosol Solution (Tiotropium [place] Monohydrate)Indic ations:breathing Inhale by mouth 2 Puffs [...] mouth daily 90 Tablet 3 3 Active Spironolactone 25 MG Oral Tablet (Aldactone) take 1 tablet by mouth three times a day 270 Tablet 3 3 Active Montelukast Sodium 10 [...] the morning. 90 Tablet 3 4 Active FeroSul 325 (65 Fe) MG Oral Tablet (Ferrous Sulfate)Indicatio ns:Iron deficiency anemia secondary to inadequate dietary iron intake take 1 tablet by mouth once daily with breakfast 90 Tablet 1 3 06/10/19 24 Discontinued Hospital, Clinic, or Other Facility Administered Medication Ordered Dose Route Frequency Start Date End Date Status albuterol sulfate (PROVENTIL) (2.5 MG/3ML) 0.083% inhalation solution 2.5 mgIndications:Pulmonary hypertension (HCC),Chronic right-sided heart failure (HCC),Sarcoidosis,Oxygen dependent 2.5 mg NEBULIZER Q4H PRN 06/03/2017 Active documented as of this encounter (statuses as of 06/10/2023) Active Problems Problem Noted Date Diagnosed Date [...] as of this encounter (statuses as of 06/10/2023) Resolved Problems Problem Noted Date Diagnosed Date [...] 01/05/2017 Pneumothorax 01/16/2016 03/19/2018 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 difficile colitis 08/13/2014 018 Respiratory failure, acute and chronic 07/21/2014 05/17/2017 Paranasal sinus disease 07/19/201306/07 [employer] Other*[id number] 06/08/2013 07/13/2016 Overview: Study Title: Genomic Markers for Patients with Cardiovascular Disease Project # [id number] Kiln Pusher: Ariana Brady MD [phone] HTN, goal below 130/80 06/03/201302/25 Cholecystolithiasis 09/20/2012 07/02/19 19 Obesity, Class III, BMI 40-4 9.9 (morbid obesity) 12/23/2011 01/05/2017 layer off current use of systemic steroids 11/05/2011 07/02/2018 [...] as of this encounter (statuses as of 06/10/2023) Immunizations Name Administration Dates Next Due COVID-19 [...] Miscellaneous Notes * Telephone Encounter - Dc Broderick [facility] - 06/10/2023 12:10 PM EST Signed Prescriptions: Disp Refills FeroSul 325 (65 Fe) MG Oral Tablet (Ferrou*90 Tab*1 Sig: TAKE 1 TABLET BY MOUTH ONCE DAILY WITH BREAKFASTAuthorizing Provider: TJ ANDERSON User: CD BRODERICKRefused Prescriptions: Disp Refills Ozempic (1 MG/DOSE) 4 MG/3ML Subcutaneous *3 mL 0 Sig: INJECT 1 MG UNDER THE SKIN ONCE A WEEK.Refused By: DC BRODERICKReason for Refusal: Duplicate RequestReason for Refusal Comment: new rx already sent documented in this encounter Plan of Treatment Upcoming Encounters Date Type Department Care Team (Late st Contact Info) Description 08/31/2023 2:00 PM EDT Cardiac Studies Cardiac Studies, [facility] [address] [facility] [place] [address] 09/05/2023 1:00 PM EDT Office Visit Cardiology, [facility] [address] [facility] [place] [address] Tresa Hammonds CRNP [facility] [place] [address] 10/06/2023 2:20 PM EDT Office Visit Family [facility] [address] [place] [phone] Tj Anderson MD [address] [place] [address] 11/16/2023 11:30 AM EDT Imaging Radiology, [address] [place] [address] 11/16/2023 1:00 PM EDT Office Visit Rheumatology [address] [address] Faustino Delgado MD [address] [place] [address] [place] [address] 02/15/2024 2:30 PM EDT Nutrition Services Nutrition & Weight Management, [facility] [address] [facility] [place] [address] [place] Zarate RDN 132 [facility] [place] [address] Health Maintenance Due Date Last Done Comments [...] D LEVEL ONCE IN A LIFETIME-USE SMARTSET# [id number] Completed 09/23/2022, 09/03/2021, 08/30/2018, Additional history exists [...] as of this encounter Visit Diagnoses Diagnosis Type 2 diabetes mellitus with hemoglobin A1c goal of less than 7.0% (HCC) Iron deficiency anemia secondary to inadequate dietary iron intake documented in this encounter Additional Health Concerns Infection Onset Date Last Indicated Resolved Time Respiratory Rule-Out 06/09/2023 06/09/2023 024 4:01 AM EST RSV 06/09/2023 06/09/2023 documented as of this [...] the patient have Health Care Power of Clinical Abstractor? No Care Teams Mandrel Maker Relationship Specialty Start Date End Date Tj Anderson MD [address] [place] [address] PCP - General Family Medicine 03/20/19 documented as of this encounter
--- OUTSIDE RECORDS SUMMARY | 2023-08-31 04:22 | External Medical Summary | Summary of Care ---
Author Name Unknown Organization [facility] Address [address] [place] [address] Phone [phone] Care Team Providers Care Pattern Room Attendant Name Role Phone Andrzej Downing MD Primary Care Provider +1- [phone] Encounter Details Date Type Department Care Team (Late st Contact Info) Description 06/10/[address] [facility] [address] [place] [address] Dulce Lamb MD [address] [place] [address] Allergies Active Allergy Reactions Criticality [...] failure managing provider or [facility] R[facility] Transplant. 1 Each 0 05/12/2018 Active Fluticasone Propionate 50 MCG/ACT Nasal Suspension (FLONASE)Indicatio ns:Nasal polyp Administer 2 Sprays into each nostril daily. Use in morning 48 g 3 05/27/2020 Active Additional Information Patient taking differently:2 [place] Each Nostril Daily(AM),Use in morning as needed, Indications: allergies, Reported on 04/22/2022 Azelastine HCl 0.1 % Nasal SolutionIndication s:Seasonal allergic rhinitis due to pollen Administer 1 [place]riet into nostril 2 times a day. 30 mL 12 09/12/2020 Active Additional Information Patient taking differently:1 [place] NasalBID PRN, Reported on 04/22/2022 Cromolyn Sodium [...] Respimat 2.5 MCG/ACT Inhalation Aerosol Solution (Tiotropium [place] Monohydrate)Indica tions:breathing Inhale by mouth 2 Puffs [...] 07/21/2022 Active Torsemide 20 MG Oral Tablet (Demadex)Indicatio [...] ONCE WEEKLY 3 mL 5 06/07/2023 Active Ipratropium-[place] rol 0.5-2.5 (3) MG/3ML Inhalation Solution (Duoneb)Indication s:Shortness of breath,Chronic obstructive pulmonary disease with acute exacerbation (HCC),Pulmonary hypertension associated with sarcoidosis,Chroni c respiratory failure with hypoxia and hypercapnia (HCC),Oxygen dependent Inhale 3 mL via nebulizer every 6 hours as needed for Wheezing or Shortness of Breath (cough). 21 mL 1 06/09/2023 Active predniSONE 20 MG Oral Tablet (Deltasone)Indicat ions:Shortness of breath,Chronic obstructive pulmonary disease with acute exacerbation (HCC),Pulmonary hypertension associated with sarcoidosis,Chroni c respiratory failure with hypoxia and hypercapnia (HCC),Oxygen dependent Take 2 Tablets by mouth in the morning for 5 days. 10 Tablet 0 06/09/2023 Active Loratadine 10 MG Oral Tablet [...] the morning. 90 Tablet 3 06/09/2023 Active Hospital, Clinic, or Other Facility Administered [...] Paranasal sinus disease 07/19/201306/07 [employer] Other*[id number] 06/08/2013 07/13/2016 Overview: Study Title: [employer] Markers for Patients with Cardiovascular Disease Project # [id number] Associate Professor Of Art History: Ariana Brady MD [phone] HTN, goal below 130/80 06/03/201302/25 Cholecystolithiasis 09/20/2012 07/02/19 19 Obesity, Class III, BMI 40-4 9.9 (morbid obesity) 12/23/2011 01/05/2017 prison current use of systemic steroids 11/05/2011 07/02/2018 [...] encounter Miscellaneous Notes * Telephone Encounter - Dulce Lamb MD - 06/10/2023 3:12 PM EST 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 Dsouza and reviewed +RSV and course of treatment. He is in agreement. He says he will have his nurse call next week for status check, says he may considerprolonging steroid course at that point. I called patient and he says he feels about the same as yesterday. He is adherent with duoneb treatment and prednisone therapy. ED precautions reviewed. Verbalized understanding and agreement with this plan, answered all questions. documented in this encounter Plan of Treatment Upcoming Encounters Date Type Department Care Team (Late st Contact Info) Description 08/31/2023 2:00 PM EDT Cardiac Studies Cardiac Studies, [facility] [address] [place] [address] 09/05/2023 1:00 PM EDT Office Visit Cardiology, [facility] [address] [place] [address] Tresa Hammonds CRNP [address] [place] [address] 10/06/2023 2:20 PM EDT Office [place] [address] [place] [phone] Andrzej Downing MD [address] [place] [address] 11/16/2023 11:30 AM EDT Imaging Radiology, [address] [place] [address] 11/16/2023 1:00 PM EDT Office Visit Rheumatology [address] [place] [address] Faustino Delgado MD [address] [place] [address] [place] [address] 02/15/2024 2:30 PM EDT Nutrition Services Nutrition & Weight Management, [facility] [address] [place] [address] Louise Zarate RDN [address] [place] [address] Health Maintenance Due Date Last Done Comments [...] D LEVEL ONCE IN A LIFETIME-USE SMARTSET# [id number] Completed 09/23/2022, 09/03/2021, 08/30/2018, Additional history exists [...] the patient have Health Care Power of Director Biomedical Engineering? No Care Teams Pattern Room Attendant Relationship Specialty Start Date End Date Andrzej Downing MD [address] [facility] [place] [address] PCP - General Family Medicine 03/20/19 documented as of this encounter
--- OUTSIDE RECORDS SUMMARY | 2023-08-31 04:22 | External Medical Summary | Summary of Care ---
Author Name Unknown Organization [facility] Address [address] [place] [address] Phone [phone] Care Team Providers Care Roll Table Operator Name Role Phone Andrzej Anderson MD Primary Care Provider +1- [phone] Encounter Details Date Type Department Care Team (Late st Contact Info) Description 06/14/2023 Telephone [facility] [address] [place] [address] Andrzej Anderson MD [address] [place] [address] Allergies Active Allergy Reactions Criticality [...] failure managing provider or [facility] Feather Trimmer. 1 Each 0 05/12/2018 Active Fluticasone Propionate 50 MCG/ACT Nasal Suspension (FLONASE)Indicati ons:Nasal polyp Administer 2 Sprays into each nostril daily. Use in morning 48 g 3 05/27/2020 Active Additional Information Patient taking differently:2 [place] Each Nostril Daily(AM),Use in morning as needed, Indications: allergies, Reported on 04/22/2022 Azelastine HCl 0.1 % Nasal SolutionIndicatio ns:Seasonal allergic rhinitis due to pollen Administer 1 [place] into nostril 2 times a day. 30 mL 12 09/12/2020 Active Additional Information Patient taking differently:1 [place] NasalBID PRN, Reported on 04/22/2022 Cromolyn Sodium [...] Respimat 2.5 MCG/ACT Inhalation Aerosol Solution (Tiotropium [place] Monohydrate)Indic ations:breathing Inhale by mouth 2 Puffs [...] A DAY 270 Tablet 1 06/14/2023 Active Ozempic (1 MG/DOSE) 4 MG/3ML Subcutaneous Solution Pen-injector (Semaglutide (1 MG/DOSE))Indicati ons:Type 2 diabetes mellitus with hemoglobin A1c goal of less than 7.0% ([facility]) INJECT 1MG UNDER THE SKIN ONCE WEEKLY 3 mL 5 06/14/2023 Active Torsemide 20 MG Oral Tablet (Demadex)Indicati ons:Chronic right-sided heart failure (HCC),Congestive heart failure with LV diastolic dysfunction, NYHA class 3 ([facility]) take 4 tablets by mouth twice a day 240 Tablet 11 07/27/2022 06/14/19 24 Discontinu ed(Refill) Folic Acid 1 MG Oral Tablet take 1 tablet by mouth once daily 90 Tablet 2 12/24/2022 06/14/19 24 Discontinu ed(Refill) Ozempic (1 MG/DOSE) 4 MG/3ML Subcutaneous Solution Pen-injector (Semaglutide (1 MG/DOSE))Indicati ons:Type 2 diabetes mellitus with hemoglobin A1c goal of less than 7.0% (HCC) INJECT 1MG UNDER THE SKIN ONCE WEEKLY 3 mL 5 06/07/2023 06/14/19 24 Discontinu ed(Refill) Hospital, Clinic, or [...] Paranasal sinus disease 07/19/201306/07 [employer] Other*[id number] 06/08/2013 07/13/2016 Overview: Study Title: [employer] Markers for Patients with Cardiovascular Disease Project # [id number] Truck Mechanic: Ariana Brady MD [phone] HTN, goal below 130/80 06/03/201302/25 Cholecystolithiasis 09/20/2012 07/02/19 19 Obesity, Class III, BMI 40-4 9.9 (morbid obesity) 12/23/2011 01/05/2017 group home current use of systemic steroids 11/05/2011 07/02/2018 [...] (15 years old or older) No 07/21/19 Cognitive Status Response Date of Assessm ent Because of a physical, menta l, or emotional condition, do you have serious difficulty concentrating, remembering, or making decisions? (5 years old or older) No 07/21/2014 documented as of this encounter Miscellaneous Notes * Telephone Encounter - Andrzej Anderson MD - 06/14/2023 6:40 PM ESTSigned Prescriptions: Disp Refills Ozempic (1 MG/DOSE) 4 MG/3ML Subcutaneous *3 mL 5 Sig: INJECT 1MG UNDER THE SKIN ONCE WEEKLYAuthorizing Provider: ANDRZEJ ANDERSON documented in this encounter Plan of Treatment Upcoming Encounters Date Type Department Care Team (Late st Contact Info) Description 08/31/2023 2:00 PM EDT Cardiac Studies Cardiac Studies, [facility] 132 [facility] [place] [address] 09/05/2023 1:00 PM EDT Office Visit Cardiology, [address] [place] [address] Tresa Hammonds CRNP 132 [facility] [place] [address] 10/06/2023 2:20 PM EDT Office Visit Family [facility] [place] [address] [place] [phone] Andrzej Anderson MD [address] [place] [address] 11/16/2023 11:30 AM EDT Imaging Radiology, [address] [place] [address] 11/16/2023 1:00 PM EDT Office Visit Rheumatology [address] [place] [address] Faustino Delgado MD [address] [place] [address] [place] [address] 02/15/2024 2:30 PM EDT Nutrition Services Nutrition & Weight Management, [facility] 132 [facility] [place] [address] Louise Zarate RDN 132 [facility] [place] [address] Health Maintenance Due Date Last Done Comments [...] D LEVEL ONCE IN A LIFETIME-USE SMARTSET# [id number] Completed 09/23/2022, 09/03/2021, 08/30/2018, Additional history exists [...] A1c goal of less than 7.0% (HCC) documented in this encounter Additional Health Concerns [...] the patient have Health Care Power of Wireline Operator? No Care Teams Roll Table Operator Relationship Specialty Start Date End Date Andrzej Anderson MD [address] [place] [address] PCP - General Family Medicine 03/20/19 documented as of this encounter
--- OUTSIDE RECORDS SUMMARY | 2023-08-31 04:22 | External Medical Summary | Summary of Care ---
Author Name Unknown Organization [facility] Address [address] [place] [address] Phone [phone] Care Team Providers Care Boarding House Manager Name Role Phone Andrzej Downing MD Primary Care Provider +1- [phone] Encounter Details Date Type Department Care Team (Late st Contact Info) Description 06/10/2023 Documentation [facility] [place] Thoracic Medicine [address] [place] [address] Jose Dsouza MD [address] [place] [address] Allergies Active Allergy Reactions Criticality [...] failure managing provider or [facility] Gas Or Petroleum Operator. 1 Each 0 05/12/2018 Active Fluticasone Propionate 50 MCG/ACT Nasal Suspension (FLONASE)Indicatio ns:Nasal polyp Administer 2 Sprays into each nostril daily. Use in morning 48 g 3 05/27/2020 Active Additional Information Patient taking differently:2 [place] Each Nostril Daily(AM),Use in morning as needed, Indications: allergies, Reported on 04/22/2022 Azelastine HCl 0.1 % Nasal SolutionIndication s:Seasonal allergic rhinitis due to pollen Administer 1 [place] into nostril 2 times a day. 30 mL 12 09/12/2020 Active Additional Information Patient taking differently:1 [place] NasalBID PRN, Reported on 04/22/2022 Cromolyn Sodium [...] Respimat 2.5 MCG/ACT Inhalation Aerosol Solution (Tiotropium [place] Monohydrate)Indica tions:breathing Inhale by mouth 2 Puffs [...] diastolic dysfunction, NYHA class 3 ([facility]) take 4 tablets by mouth twice a day 240 Tablet 11 07/27/2022 Active Breo Ellipta 200-25 MCG/ACT Inhalation Aerosol Powder Breath Activated (fluticasone furoate-vilanterol ) inhale 1 puff by mouth and INTO THE LUNGS every morning 60 Blister Dosing Unit 3 07/26/2022 Active Losartan Potassium 25 MG Oral Tablet (Cozaar)Indication s:Chronic right-sided heart failure ([facility]),Essential hypertension with goal blood pressure less than [...] for 5 days. 10 Tablet 0 06/09/2023 4 Active Loratadine 10 MG Oral Tablet (Claritin)Indicati [...] Paranasal sinus disease 07/19/201306/07 [employer] Other*[id number] 06/08/2013 07/13/2016 Overview: Study Title: [employer] Markers for Patients with Cardiovascular Disease Project # [id number] Fingernail Former: Ariana Brady MD [phone] HTN, goal below 130/80 06/03/201302/25 Cholecystolithiasis 09/20/2012 07/02/19 19 Obesity, Class III, BMI 40-4 9.9 (morbid obesity) 12/23/2011 01/05/2017 [facility] current use of systemic steroids 11/05/2011 07/02/2018 [...] as of this encounter Progress Notes * Jose Dsouza MD - 06/10/2023 3:13 PM EST Received call from patient's PCP. Patient diagnosed with RSV. No change in oxygenation, increased chest tightness and dyspnea. Patient given 5 day course of 40 mg prednisone. Will schedule nurse follow-up visit next Tuesday to inquire regarding patient's symptoms. documented in this encounter Plan of Treatment Upcoming Encounters Date Type Department Care Team (Late st Contact Info) Description 08/31/2023 2:00 PM EDT Cardiac Studies [facility] Studies, [facility] [place] [address] 09/05/2023 1:00 PM EDT Office Visit Cardiology, [facility] [address] [facility] [place] [address] Tresa Hammonds CRNP [facility] [address] 10/06/2023 2:20 PM EDT Office Visit [facility] [address] [facility] [phone] Andrzej Downing MD [address] [facility] [address] 11/16/2023 11:30 AM EDT Imaging Radiology, [address] [place] [address] 11/16/2023 1:00 PM EDT Office Visit Rheumatology [facility] [address] [place] [address] Faustino Delgado MD [address] [facility] [place] [address] 02/15/2024 2:30 PM EDT Nutrition Services Nutrition & Weight Management, [facility] [address] [place] [address] Louise Zarate RDN [address] [place] [address] Health Maintenance Due Date Last Done Comments [...] D LEVEL ONCE IN A LIFETIME-USE SMARTSET# [id number] Completed 09/23/2022, 09/03/2021, 08/30/2018, Additional history exists [...] the patient have Health Care Power of Plumbing Mechanic? No Care Teams Boarding House Manager Relationship Specialty Start Date End Date Andrzej Downing MD [address] [place] [address] PCP - General Family Medicine 03/20/19 documented as of this encounter
--- OUTSIDE RECORDS SUMMARY | 2023-08-31 04:22 | External Medical Summary | Summary of Care ---
Author Name Unknown Organization [facility] Address [address] [place] [address] Phone [phone] Care Team Providers Care Spotter Driver Name Role Phone Andrzej Downing MD Primary Care Provider +1- [phone] Reason for Visit * Reason Onset Date Comments Nurse Telephone Follow Up 06/14/2023 Encounter Details Date Type Department Care Team (Late st Contact Info) Description 06/14/2023 2:00 PM EST Scheduled Telephone Pulmonary Medicine, [place] [address] [place] [address] [place], Nurse Phone Call [facility] [address] [place] [address] Allergies Active Allergy Reactions Criticality [...] failure managing provider or [facility] Internet Ecommerce Specialist. 1 Each 0 05/12/2018 Active Fluticasone Propionate 50 MCG/ACT Nasal Suspension (FLONASE)Indicatio ns:Nasal polyp Administer 2 Sprays into each nostril daily. Use in morning 48 g 3 05/27/2020 Active Additional Information Patient taking differently:2 [place] Each Nostril Daily(AM),Use in morning as needed, Indications: allergies, Reported on 04/22/2022 Azelastine HCl 0.1 % Nasal SolutionIndication s:Seasonal allergic rhinitis due to pollen Administer 1 [place] into nostril 2 times a day. 30 mL 12 09/12/2020 Active Additional Information Patient taking differently:1 [place] NasalBID PRN, Reported on 04/22/2022 Cromolyn Sodium [...] Respimat 2.5 MCG/ACT Inhalation Aerosol Solution (Tiotropium [place] Monohydrate)Indica tions:breathing Inhale by mouth 2 Puffs [...] LV diastolic dysfunction, NYHA class 3 ([facility]) take 4 tablets by mouth twice a [...] A1c goal of less than 7.0% ([facility]) take 1 tablet by mouth once daily [...] A DAY 270 Tablet 1 06/14/2023 Active Hospital, Clinic, or Other Facility [...] Paranasal sinus disease 07/19/201306/07 [employer] Other*[id number] 06/08/2013 07/13/2016 Overview: Study Title: [employer] Markers for Patients with Cardiovascular Disease Project # [id number] Orthopedic Technician: Ariana Brady MD [phone] HTN, goal below 130/80 06/03/201302/25 Cholecystolithiasis 09/20/2012 [...] encounter Miscellaneous Notes * Telephone Encounter - Laura Thacker RN - 06/14/2023 2:01 PM EST Scheduled Nurse telephone call to follow up on Respiratory symptoms (RSV) after starting oral steroid. Amilcar reports that he is "getting better" and his respiratory symptoms "are not as bad as they werea couple days ago". Amilcar has finished the 5 days of oral steroids. Amilcar would like to know how long he should "stay in" since diagnosed with RSV (06/09/2023). He is advised to stay home for 7 days- If he must go out/be around people he is advised to wear a mask. Also advised Amilcar to contact the clinic if symptoms worsen or return. Amilcar verbalized understanding and is agreeable to this plan. documented in this encounter Plan of Treatment Upcoming Encounters Date Type Department Care Team (Late st Contact Info) Description 08/31/2023 2:00 PM EDT Cardiac Studies Cardiac Studies, [facility] 132 [facility] [place] [address] 09/05/2023 1:00 PM EDT Office Visit Cardiology, [facility] 132 [facility] [place] [address] Tresa Hammonds CRNP [address] [place] [address] 10/06/2023 2:20 PM EDT Office Visit Family Practice, [place] [address] [place] [phone] Andrzej Downing MD [address] [place] [address] 11/16/2023 11:30 AM EDT Imaging Radiology, [address] [place] [address] 11/16/2023 1:00 PM EDT Office Visit Rheumatology [address] [place] [address] Faustino Delgado MD [address] [place] [address] [place] [address] 02/15/2024 2:30 PM EDT Nutrition Services Nutrition & Weight Management, [facility] [address] [place] [address] Louise Zarate RDN [address] [place] [address] Health Maintenance Due Date Last Done Comments [...] Ratio 03/30/2023 03/30/2022, 05/07 B-12 09/24/2023 09/23/2022, 0907/2020, 09/02/2020, Additional history exists GFR 09/24/2023 09/23/2022, [...] D LEVEL ONCE IN A LIFETIME-USE SMARTSET# [id number] Completed 09/23/2022, 09/03/2021, 08/30/2018, Additional history exists [...] the patient have Health Care Power of Junior Network Engineer? No Care Teams Spotter Driver Relationship Specialty Start Date End Date Andrzej Downing MD [address] [place] [address] PCP - General Family Medicine 03/20/19 documented as of this encounter
--- OUTSIDE RECORDS SUMMARY | 2023-08-31 04:23 | External Medical Summary ---
Author Name Unknown Address Unknown Organization K01:LABORATORY [facility] - [address] [facility] [place] [address] Laboratory Report Ordering Provider Test Date Status TODD COURTNEY 06/09/2023 10:42:02 Final Observation Date Value Abnormality Reference (Units ) Status Adenovirus DNA [Presence] in Nasopharynx by [place] with non-probe detection 06/09/2023 10:42:02 Negative Negative Final Human coronavirus 229E RNA [Presence] in Nasopharynx by [place] with non-probe detection 06/09/2023 10:42:02 Negative Negative Final Human coronavirus HKU1 RNA [Presence] in Nasopharynx by [place]WYER with non-probe detection 06/09/2023 10:42:02 Negative Negative Final Human coronavirus NL63 RNA [Presence] in Nasopharynx by SAWYER with non-probe detection 06/09/2023 10:42:02 Negative Negative Final Human coronavirus OC43 RNA [Presence] in Nasopharynx by SAWYER with non-probe detection 06/09/2023 10:42:02 Negative Negative Final SARS-CoV-2 (COVID-19) RNA [Presence] in Nasopharynx by SAWYER with non-probe detection 06/09/2023 10:42:02 Negative Negative Final Human metapneumovirus RNA [Presence] in Nasopharynx by SAWYER with non-probe detection 06/09/2023 10:42:02 Negative Negative Final Rhinovirus+Enterovirus RNA [Presence] in Nasopharynx by SAWYER with non-probe detection 06/09/2023 10:42:02 Negative Negative Final Influenza virus A RNA [Presence] in Nasopharynx by SAWYER with non-probe detection 06/09/2023 10:42:02 Negative Negative Final Influenza virus B RNA [Presence] in Nasopharynx by SAWYER with non-probe detection 06/09/2023 10:42:02 Negative Negative Final Parainfluenza virus 1 RNA [Presence] in Nasopharynx by SAWYER with non-probe detection 06/09/2023 10:42:02 Negative Negative Final Parainfluenza virus 2 RNA [Presence] in Nasopharynx by SAWYER with non-probe detection 06/09/2023 10:42:02 Negative Negative Final Parainfluenza virus 3 RNA [Presence] in Nasopharynx by SAWYER with non-probe detection 06/09/2023 10:42:02 Negative Negative Final Parainfluenza virus 4 RNA [Presence] in Nasopharynx by SAWYER with non-probe detection 06/09/2023 10:42:02 Negative Negative Final Respiratory syncytial virus RNA [Presence] in Nasopharynx by SAWYER with non-probe detection 06/09/2023 10:42:02 Positive Abnormal Negative Final Respiratory Syncytial virus detected by PCR (amplified probe). Test results reported to [facility]. Bordetella pertussis.pertuss is toxin promoter region [Presence] in Nasopharynx by SAWYER with non-probe detection 06/09/2023 10:42:02 Negative Negative Final Chlamydophila pneumoniae DNA [Presence] in Nasopharynx by SAWYER with non-probe detection 06/09/2023 10:42:02 Negative Negative Final Mycoplasma pneumoniae DNA [P resence] in Nasopharynx by SAWYER with non-probe detection 06/09/2023 10:42:02 Negative Negative Final Bordetella parapertussis IS1 001 DNA [Presence] in Nasopharynx by SAWYER with non-probe detection 06/09/2023 10:42:02 Negative Negative F inal
The primers that detect Rhinovirus may cross react with some Enterorviruses. The validation of bronchial specimens, tracheal aspirates, and throats for this assay was developed and performance characteristics determined by [employer]. The validation of alternate specimen types has not been cleared or approved by the U.S. Food and Drug Administration (FDA). It has been determined that such clearance or approval is not necessary. Performing Location LABORATORY [facility] - [facility] [address] [facility] [address]. [facility] [address]
--- OUTSIDE RECORDS SUMMARY | 2023-08-31 04:23 | External Medical Summary | Summary of Care ---
Author Name Unknown Organization [facility] Address [address] [place] [address] Phone [phone] Care Team Providers Care Weed Controller Name Role Phone Andrzej Downing MD Primary Care Provider [phone] Reason for Visit * Reason Comments Acute Cold symptoms, bring ing up phlegm and wheezing Encounter Details Date Type Department Care Team (Late st Contact Info) Description 06/09/2023 10:00 AM EST Office Visit [facility] [address] [place] [address] Dulce Lamb MD [address] [place] [address] Shortness of breath*; Chronic right-sided heart failure (HCC); Chronic obstructive pulmonary disease with acute exacerbation (HCC); Pulmonary hypertension associated with sarcoidosis ; Chronic respiratory failure with hypoxia and hypercapnia (HCC); Oxygen dependent Allergies Active Allergy Reactions Criticality Noted Date Comments Doxycycline Other (Please comment) Low 07/25/2013 Headache documented as of this encounter (statuses as of 06/09/2023) Medications Medication Sig Dispensed Refills Start Date End Date Status NEBULIZER COMPRESSOR MISCIndications:Shor tness of breath,Wheezing,Sarc oidosis Use as directed 1 Each 1 Active NEBULIZER/TUBING/VANNA THPIECE KITIndications:Short ness of breath,Wheezing,Sarc oidosis use with nebs 1 Kit 11 1 [...] 3, contact heart failure managing provider or [facility] at Home Tipple Oiler. 1 Each 0 8 Active Fluticasone Propionate 50 MCG/ACT Nasal Suspension (FLONASE)Indications :Nasal polyp Administer 2 Sprays into each nostril daily. Use in morning 48 g 3 0 Active Additional Information Patient taking differently:2 Dixon Each Nostril Daily(AM),Use in morning as needed, Indications: allergies, Reported on 04/22/2022 Azelastine HCl 0.1 % Nasal SolutionIndications: Seasonal allergic rhinitis due to pollen Administer 1 Dixon into nostril 2 times a day. 30 mL 12 1 Active Additional Information Patient taking differently:1 Dixon NasalBID PRN, Reported on 04/22/2022 Cromolyn Sodium 4 % Ophthalmic Solution (Crolom)Indications: Seasonal allergic rhinitis due to pollen Instill 1 [...] Respimat 2.5 MCG/ACT Inhalation Aerosol Solution (Tiotropium [place] Monohydrate)Indicati ons:breathing Inhale by mouth 2 Puffs in the morning. 4 g 3 2 Active Lidocaine 4 % External Patch (Aspercreme) Place 1 Patch topically on the skin daily. 0 Active Albuterol Sulfate HFA 108 (90 Base) MCG/ACT Inhalation Aerosol Solution Inhale 2 Puffs by mouth every 4 hours as needed for Cough, Shortness of Breath or Wheezing. 18 g 11 2 Active Digoxin 125 MCG Oral Tablet (Lanoxin) Take 1 Tablet by mouth in the morning. 90 Tablet 3 3 Active oxygen IN GASIndications:Sever e obstructive sleep apnea,Pulmonary hypertension (HCC),Sarcoidosis of lung (HCC) 2 LPM during rest, 3 LPM while ambulating, 4 LPM through Trilogy during sleep 1 Each 0 3 Active Torsemide 20 MG Oral Tablet (Demadex)Indications :Chronic right-sided heart failure (HCC),Congestive heart failure with LV diastolic dysfunction, NYHA class 3 (HCC) take 4 tablets by mouth twice a day 240 Tablet 11 3 Active Breo Ellipta 200-25 MCG/ACT Inhalation Aerosol Powder Breath Activated (fluticasone furoate-vilanterol) inhale 1 puff by mouth and INTO THE LUNGS every morning 60 Blister Dosing Unit 3 3 Active Losartan Potassium 25 MG Oral Tablet (Cozaar)Indications: Chronic right-sided heart failure (HCC),Essential hypertension with goal blood pressure less than 130/80 take 1 tablet by mouth daily 90 Tablet 3 3 Active Spironolactone 25 MG Oral Tablet (Aldactone) take 1 tablet by mouth three times a day 270 Tablet 3 3 Active Montelukast Sodium 10 MG Oral Tablet (Singulair)Indicatio ns:Increased nasal secretion take 1 tablet by mouth at bedtime 90 Tablet 3 3 Active FeroSul 325 (65 Fe) MG Oral Tablet (Ferrous Sulfate)Indications: Iron deficiency anemia secondary to inadequate dietary iron intake take 1 tablet by mouth once daily with breakfast 90 Tablet 1 3 Active Potassium Chloride Bety ER 20 MEQ Oral Tablet Extended ReleaseIndications:H ypokalemia take 1 tablet by mouth twice a day 180 Tablet 1 3 Active Folic Acid 1 MG Oral Tablet take 1 tablet by mouth once daily 90 Tablet 2 3 Active Citalopram Hydrobromide 20 MG Oral Tablet (CeleXA)Indications: Major depressive disorder TAKE 1 TABLET BY MOUTH [...] 1 % External Cream (LamISIL AT ATHLETE'S FOOT)Indications:Chandni lulitis of umbilicus Apply cream to affected area of umbilicus 2 times per day for up to 4 weeks 15 g 1 3 Active metFORMIN HCl ER 500 MG Oral Tablet Extended Release 24 Hour (Glucophage XR) take 2 tablets by mouth ONCE daily 180 Tablet 1 3 Active Empagliflozin 25 MG Oral Tablet (Jardiance)Indicatio ns:Type 2 diabetes mellitus with hemoglobin A1c goal of less than 7.0% (HCC) take 1 tablet by mouth once daily 90 Tablet 1 3 Active metOLazone 2.5 MG Oral Tablet (Zaroxolyn)Indicatio ns:Hypertensive heart disease with chronic right-sided congestive heart failure (HCC) Take 2.5 mg daily for three days when weight increases 3 pounds in 24 hours or 5 pounds in one week. 30 Tablet 0 3 Active Ozempic (1 MG/DOSE) 4 MG/3ML Subcutaneous Solution Pen-injector (Semaglutide (1 MG/DOSE))Indications :Type 2 diabetes mellitus with hemoglobin A1c goal of less than 7.0% (HCC) INJECT 1MG UNDER THE SKIN ONCE WEEKLY 3 mL 5 4 Active Ipratropium-Albutero l 0.5-2.5 (3) MG/3ML Inhalation Solution (Duoneb)Indications: Shortness of breath,Chronic obstructive pulmonary disease with acute exacerbation (HCC),Pulmonary hypertension associated with sarcoidosis,Chronic respiratory failure with hypoxia and hypercapnia (HCC),Oxygen dependent Inhale 3 mL via nebulizer every 6 hours as needed for Wheezing or Shortness of Breath (cough). 21 mL 1 4 Active predniSONE 20 MG Oral Tablet (Deltasone)Indicatio ns:Shortness of breath,Chronic obstructive pulmonary disease with acute exacerbation (HCC),Pulmonary hypertension associated with sarcoidosis,Chronic respiratory failure with hypoxia and hypercapnia (HCC),Oxygen dependent Take 2 Tablets by mouth in the morning for 5 days. 10 Tablet 0 4 06/14/19 24 Active Loratadine 10 MG Oral Tablet (Claritin)Indication s:Shortness of breath,Chronic obstructive pulmonary disease with acute exacerbation (HCC),Pulmonary hypertension associated with sarcoidosis,Chronic respiratory failure with hypoxia and hypercapnia (HCC),Oxygen dependent Take 1 Tablet by mouth in the morning. 30 Tablet 5 4 Active Levocetirizine Dihydrochloride 5 MG Oral TabletIndications:Se asonal allergic rhinitis due to pollen Take 1 Tab by mouth every evening. 90 Tab 0 1 06/09/19 24 Discontinu ed(Medicat ion/Dose Changed) Hospital, Clinic, or Other Facility Administered Medication Ordered Dose Route Frequency Start Date End Date Status albuterol sulfate (PROVENTIL) (2.5 MG/3ML) 0.083% inhalation solution 2.5 mgIndications:Pulmonary hypertension (HCC),Chronic right-sided heart failure (HCC),Sarcoidosis,Oxyge n dependent 2.5 mg NEBULIZER Q4H PRN 06/03/2017 Active albuterol-ipratropium (Duoneb) inhalation solution 3 mLIndications:Shortness of breath,Chronic obstructive pulmonary disease with acute exacerbation (HCC) 3 mL NEBULIZER ONCE 06/09/2023 06/09/2023 Ended documented as of this encounter (statuses as [...] Paranasal sinus disease 07/19/201306/07 [employer] Other*[id number] 06/08/2013 07/13/2016 Overview: Study Title: Gen[employer] Markers for Patients with Cardiovascular Disease Project # [id number] Stationary Engineer Refrigeration: Ariana Brady MD [phone] HTN, goal below 130/80 06/03/201302/25 Cholecystolithiasis 09/20/2012 07/02/19 19 Obesity, Class III, BMI 40-4 9.9 (morbid obesity) 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 11/05/2011 [...] Never Cigarettes 28 Smokeless Tobacco: Current Snuff Tobacco Cessation:Ready to Q uit: Not Asked; Counseling Given: Not Answered Comments:Currently using between 1/2 can to 3/4 can of snuff/day [...] on file documented as of this encounter Last Filed Vital Signs Vital Sign Reading Time Taken Comments Blood Pressure 102/62 06/09/2023 10:03 AM EST Pulse 93 06/09/2023 10:03 AM EST Temperature 35.9 C (96.6 F) 06/09/2023 1 0:03 AM EST Respiratory Rate 22 06/09/2023 10:0 3 AM EST Oxygen Saturation 85% 06/09/2023 10: 03 AM EST Inhaled Oxygen Concentration - - Weight 103.1 kg (227 lb 6.4 oz) 024 10:03 AM EST Height - - Body Mass Index 32.63 04/04/2023 2:11 PM EDT documented in this encounter Functional Status Functional Status Response [...] as of this encounter Progress Notes * Dulce Lamb MD - 06/09/2023 10:28 AM EST ASSESSMENT / PLAN: Guero Pugh is a 52 year old male with PMHx COPD / sarcoidosis / pulm HTN / Hx of Blastomycosis with Respiratory failure requiring Tracheostomy (s/p decannulation) / oxygen dependent / Hx of Pneumothorax / Right heart failure / T2DM / ANGELES on BiPAP - here for acute Cough / wheezing He is at his Baseline O2 use (4-5 LPM to maintain SpO2 > 89%) Afebrile Audibly wheezing - duoneb treatment with benefit today Recommend continue as needed at home Resp panel and sputum cx pending, tx based on results Prednisone, restart loratadine Shortness of breath (Primary) - albuterol-ipratropium (Duoneb) inhalation solution 3 mL - Ipratropium-Albuterol 0.5-2.5 (3) MG/3ML Inhalation Solution (Duoneb); Inhale 3 mL via nebulizer every 6 hours as needed for Wheezing or Shortness of Breath (cough). - RESPIRATORY PATHOGEN PANEL, PCR; Future; Expected date: 06/09/2023 - CULTURE, RESPIRATORY, LOWER, AEROBIC; Future; Expected date: 06/09/2023 - RESPIRATORY PATHOGEN PANEL, PCR - CULTURE, RESPIRATORY, LOWER, AEROBIC - predniSONE 20 MG Oral Tablet (Deltasone); Take 2 Tablets by mouth in the morning for 5 days. - Loratadine 10 MG Oral Tablet (Claritin); Take 1 Tablet by mouth in the morning. Chronic right-sided heart failure (HCC) Chronic obstructive pulmonary disease with acute exacerbation (HCC) - albuterol-ipratropium (Duoneb) inhalation solution 3 mL - Ipratropium-Albuterol 0.5-2.5 (3) MG/3ML Inhalation Solution (Duoneb); Inhale 3 mL via nebulizer every 6 hours as needed for Wheezing or Shortness of Breath (cough). - RESPIRATORY PATHOGEN PANEL, PCR; Future; Expected date: 06/09/2023 - CULTURE, RESPIRATORY, LOWER, AEROBIC; Future; Expected date: 06/09/2023 - RESPIRATORY PATHOGEN PANEL, PCR - CULTURE, RESPIRATORY, LOWER, AEROBIC - predniSONE 20 MG Oral Tablet (Deltasone); Take 2 Tablets by mouth in the morning for 5 days. - Loratadine 10 MG Oral Tablet (Claritin); Take 1 Tablet by mouth in the morning. Pulmonary hypertension associated with sarcoidosis - Ipratropium-Albuterol 0.5-2.5 (3) MG/3ML Inhalation Solution (Duoneb); Inhale 3 mL via nebulizer every 6 hours as needed for Wheezing or Shortness of Breath (cough). - RESPIRATORY PATHOGEN PANEL, PCR; Future; Expected date: 06/09/2023 - CULTURE, RESPIRATORY, LOWER, AEROBIC; Future; Expected date: 06/09/2023 - RESPIRATORY PATHOGEN PANEL, PCR - CULTURE, RESPIRATORY, LOWER, AEROBIC - predniSONE 20 MG Oral Tablet (Deltasone); Take 2 Tablets by mouth in the morning for 5 days. - Loratadine 10 MG Oral Tablet (Claritin); Take 1 Tablet by mouth in the morning. Chronic respiratory failure with hypoxia and hypercapnia (HCC) - Ipratropium-Albuterol 0.5-2.5 (3) MG/3ML Inhalation Solution (Duoneb); Inhale 3 mL via nebulizer every 6 hours as needed for Wheezing or Shortness of Breath (cough). - RESPIRATORY PATHOGEN PANEL, PCR; Future; Expected date: 06/09/2023 - CULTURE, RESPIRATORY, LOWER, AEROBIC; Future; Expected date: 06/09/2023 - RESPIRATORY PATHOGEN PANEL, PCR - CULTURE, RESPIRATORY, LOWER, AEROBIC - predniSONE 20 MG Oral Tablet (Deltasone); Take 2 Tablets by mouth in the morning for 5 days. - Loratadine 10 MG Oral Tablet (Claritin); Take 1 Tablet by mouth in the morning. Oxygen dependent - Ipratropium-Albuterol 0.5-2.5 (3) MG/3ML Inhalation Solution (Duoneb); Inhale 3 mL via nebulizer every 6 hours as needed for Wheezing or Shortness of Breath (cough). - RESPIRATORY PATHOGEN PANEL, PCR; Future; Expected date: 06/09/2023 - CULTURE, RESPIRATORY, LOWER, AEROBIC; Future; Expected date: 06/09/2023 - RESPIRATORY PATHOGEN PANEL, PCR - CULTURE, RESPIRATORY, LOWER, AEROBIC - predniSONE 20 MG Oral Tablet (Deltasone); Take 2 Tablets by mouth in the morning for 5 days. - Loratadine 10 MG Oral Tablet (Claritin); Take 1 Tablet by mouth in the morning. If needed, prefers contact by: Ok to leave message on phone: SUBJECTIVE: Nursing Notes: Tonia Cowart LPN 06/09/23 1009 Signed The patient has been properly identified by confirmation of name and date of . Chief Complaint Patient presents with Acute Cold symptoms, bringing up phlegm and wheezing HPI: Guero Pugh is a 52 year old male. Here for acute - cough and wheezing x 3-4 days. 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, T38.0X5A Congestive heart failure with LV diastolic dysfunction, NYHA class 3 ([facility]) I50.30 Sarcoidosis of lung ([facility]) D86.0 History of Clostridium difficile colitis Z86.19 Type 2 diabetes mellitus with hemoglobin A1c goal of less than 7.0% ([facility]) E11.9 Pulmonary hypertension associated with sarcoidosis I27.29, D86.9 Oxygen dependent Z99.81 Depression, major, recurrent, in remission ([facility]) F33.40 Gastroesophageal reflux disease without esophagitis K21.9 Chronic cor pulmonale ([facility]) I27.81 Essential hypertension with goal blood pressure less than 130/80 I10 History of 2019 novel coronavirus disease (COVID-19) Z86.16 Chronic respiratory failure with hypoxia and hypercapnia ([facility]) J96.11, J96.12 Chronic obstructive pulmonary disease ([facility]) J44.9 Obesity hypoventilation syndrome ([facility]) E66.2 Hypertensive heart disease with chronic right-sided congestive heart failure (HCC) I11.0, I50.812 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 Devices MISC Use as directed. BIPAP at night Glucose Blood (ONETOUCH VERIO) STRP Use up to 4 times a day E11.9 100 Strip 11 ONETOUCH ULTRASOFT LANCETS MISC Use as directed 4 times a day as needed for Hyperglycemia (high sugar) or Hypoglycemia (low sugar). 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 1 Each 0 Fluticasone Propionate 50 MCG/ACT Nasal Suspension (FLONASE) Administer 2 Sprays into each nostril daily. Use in morning (Patient taking differently: Administer 2 Sprays into each nostril in the morning. Use in morning as needed.) 48 g 3 Azelastine HCl 0.1 % Nasal Solution Administer 1 Dixon into nostril 2 times a day. (Patient taking differently: Administer 1 Dixon into nostril 2 times a day as needed.) 30 mL 12 Cromolyn Sodium 4 % Ophthalmic Solution (Crolom) Instill 1 Drop into both eyes 4 times a day as needed for Allergies or Itching. 10 mL 1 Multi Vitamin Daily Oral Tablet Take by mouth . 1 daily Vitamin C 250 MG Oral Tablet (Ascorbic Acid) Take 1 Tablet by mouth in the morning. 2 to 3 tabs daily . Spiriva Respimat 2.5 MCG/ACT Inhalation Aerosol Solution (Tiotropium [place] Monohydrate) Inhale bymouth 2 Puffs in the morning. 4 g 3 Digoxin 125 MCG Oral Tablet (Lanoxin) Take 1 Tablet by mouth in the morning. 90 Tablet 3 oxygen IN GAS 2 LPM during rest, 3 LPM while ambulating, 4 LPM through Trilogy during sleep 1 Each 0 Torsemide 20 MG Oral Tablet (Demadex) take 4 tablets by mouth twice a day 240 Tablet 11 Losartan Potassium 25 MG Oral Tablet (Cozaar) take 1 tablet by mouth daily 90 Tablet 3 Spironolactone 25 MG Oral Tablet (Aldactone) take 1 tablet by mouth three times a day 270 Tablet 3 Montelukast Sodium 10 MG Oral Tablet (Singulair) take 1 tablet by mouth at bedtime 90 Tablet 3 FeroSul 325 (65 Fe) MG Oral Tablet (Ferrous Sulfate) take 1 tablet by mouth once daily with breakfast 90 Tablet 1 Potassium Chloride Bety ER 20 MEQ Oral Tablet Extended Release take 1 tablet by mouth twice a day 180 Tablet 1 Folic Acid 1 MG Oral Tablet take 1 tablet by mouth once daily 90 Tablet 2 Citalopram Hydrobromide 20 MG Oral Tablet (CeleXA) TAKE 1 TABLET BY MOUTH ONCE DAILY 90 Tablet 2 Omeprazole 20 MG Oral Capsule Delayed Release (PriLOSEC) take 1 capsule by mouth every morning before FIRST MEAL OF THE DAY 90 Capsule 2 Tamsulosin HCl 0.4 MG Oral Capsule (Flomax) take 1 capsule by mouth once daily 90 Capsule 1 Terbinafine HCl 1 % External Cream (LamISIL AT ATHLETE'S FOOT) Apply cream to affected area of umbilicus 2 times per day for up to 4 weeks 15 g 1 metFORMIN HCl ER 500 MG Oral Tablet Extended Release 24 Hour (Glucophage XR) take 2 tablets by mouth ONCE daily 180 Tablet 1 Empagliflozin 25 MG Oral Tablet (Jardiance) take 1 tablet by mouth once daily 90 Tablet 1 metOLazone 2.5 MG Oral Tablet (Zaroxolyn) Take 2.5 mg daily for three days when weight increases 3 pounds in 24 hours or 5 pounds in one week. 30 Tablet 0 Ozempic (1 MG/DOSE) 4 MG/3ML Subcutaneous Solution Pen-injector (Semaglutide (1 MG/DOSE)) INJECT 1MG UNDER THE SKIN ONCE WEEKLY 3 mL 5 Ipratropium-Albuterol 0.5-2.5 (3) MG/3ML Inhalation Solution (Duoneb) Inhale 3 mL via nebulizer every 6 hours as needed for Wheezing or Shortness of Breath (cough). 21 mL 1 predniSONE 20 MG Oral Tablet (Deltasone) Take 2 Tablets by mouth in the morning for 5 days. 10 Tablet 0 Loratadine 10 MG Oral Tablet (Claritin) Take 1 Tablet by mouth in the morning. 30 Tablet 5 Lidocaine 4 % External Patch (Aspercreme) Place 1 Patch topically on the skin daily. (Patient not taking: Reported on 04/01/2023) Albuterol Sulfate HFA 108 (90 Base) MCG/ACT Inhalation Aerosol Solution Inhale 2 Puffs by mouth every 4 hours as needed for Cough, Shortness of Breath or Wheezing. 18 g 11 Breo Ellipta 200-25 MCG/ACT Inhalation Aerosol Powder Breath Activated (fluticasone furoate-vilanterol) inhale 1 puff by mouth and INTO THE LUNGS every morning 60 Blister Dosing Unit 3 Current Facility-Administered Medications Medication Dose Route Frequency Provider Last Rate Last Admin albuterol sulfate (PROVENTIL) (2.5 MG/3ML) 0.083% inhalation solution 2.5 mg 2.5 mg Nebulizer Q4H Louise Bergman CRNP 2.5 mg at 01/11/20 0950 OBJECTIVE: BP 102/62 | Pulse 93 | Temp 35.9 C (96.6 F) | Resp 22 | Wt 103.1 kg (227 lb 6.4 oz) | SpO2 85% | BMI 32.63 kg/m | BSA 2.26 m Vitals reviewed and is normotensive / afebrile / and not tachycardic General: No acute distress. Neuro: Alert Pleasant & interactive. Respiratory: Good inspiratory effort, no labored breathing. Wheezing bilaterally HEENT: Conjunctivae appear clear. No swelling noted face or lips. Skin: No rash visible on exposed skin areas, normal coloration & appears dry. Psych: Normal affect. Fluent speech. Dulce Lamb MD [address] [address] There are no Patient Instructions on file for this visit. documented in this encounter Nursing Notes * Tonia Cowart LPN - 06/09/2023 10:09 AM EST The patient has been properly identified by confirmation of name and date of . Chief Complaint Patient presents with Acute Cold symptoms, bringing up phlegm and wheezing documented in this encounter Plan of Treatment Upcoming Encounters Date Type Department Care Team (Late st Contact Info) Description 08/31/2023 2:00 PM EDT Cardiac Studies Cardiac Studies, [facility] [address] [facility] [place] [address] 09/05/2023 1:00 PM EDT Office Visit Cardiology, [facility] [address] [facility] [place] [address] Tresa Hammonds CRNP [address] [facility] [place] [address] 10/06/2023 2:20 PM EDT Office Visit [address] [place] [address] Andrzej Downing MD [address] [place] [address] 11/16/2023 11:30 AM EDT Imaging [place]iology, [address] [place] [address] 11/16/2023 1:00 PM EDT Office Visit Rheumatology [address] [place] [address] Faustino Delgado MD [address] [place] [address] [place] [address] 02/15/2024 2:30 PM EDT Nutrition Services Nutrition & Weight Management, [facility] [address] Louise Zarate RDN [facility] [place] [address] Scheduled Orders Name Type Priority Associated Diagnoses Orde r Schedule RESPIRATORY PATHOGEN PANEL, PCR Lab Routine Shortness of breath Chronic obstructive pulmonary disease with acute exacerbation (HCC) Pulmonary hypertension associated with sarcoidosis Chronic respiratory failure with hypoxia and hypercapnia (HCC) Oxygen dependent Expected: 06/09/2023 (Approximate), Expires: 06/08/2024 CULTURE, RESPIRATORY, LOWER, AEROBIC Lab Routine Shortness of breath Chronic obstructive pulmonary disease with acute exacerbation (HCC) Pulmonary hypertension associated with sarcoidosis Chronic respiratory failure with hypoxia and hypercapnia (HCC) Oxygen dependent Expected: 06/09/2023, Expires: 06/09/2024 Health Maintenance Due Date Last Done Comments [...] D LEVEL ONCE IN A LIFETIME-USE SMARTSET# [id number] Completed 09/23/2022, 09/03/2021, 08/30/2018, Additional history exists [...] as of this encounter Visit Diagnoses Diagnosis Shortness of breath- Primary Chronic right-sided heart failure (HCC) Congestive heart failure, unspecified Chronic obstructive pulmonary disease with acute exacerbation (HCC) Obstructive chronic bronchitis with exacerbation Pulmonary hypertension associated with sarcoidosis Other chronic pulmonary heart diseases Chronic respiratory failure with hypoxia and hypercapnia (HCC) Oxygen dependent Dependence on supplemental oxygen documented in this encounter Administered Medications Inactive Administered Medications - up to 3 most recent administrations Medication Order MAR Action Action Date Dose Rate Site albuterol-ipratropium (Duoneb) inhalation solution 3 mL 3 mL, Nebulizer, ONCE, On Darcy 06/09/23 at 1100, For 1 dose, 3 mL = 0.5 mg ipratropium/ 2.5 mg albuterol Given 06/09/2023 10:36 AM EST 3 mL documented in this encounter Additional Health Concerns [...] the patient have Health Care Power of Bakery Clerk? No Care Teams Weed Controller Relationship Specialty Start Date End Date Andrzej Downing MD [address] [place] [address] PCP - General Family Medicine 03/20/19 documented as of this encounter"
--- OUTSIDE RECORDS SUMMARY | 2023-08-31 04:23 | External Medical Summary | Summary of Care ---
Author Name Unknown Organization [facility] Address [address] [place] [address] Phone [phone] Care Team Providers Care Denture Processor Name Role Phone Andrzej Downing MD Primary Care Provider [phone] Reason for Visit * Reason Onset Date Comments Status Check Return in [address] [place] [address] Medication Administration 04/04/2023 Flu an d/or Pneumo Inj Encounter Details Date Type Department Care Team (Late st Contact Info) Description 04/04/2023 2:00 PM EDT Office Visit [facility] [address] [place] [address] Andrzej Downing MD [address] [place] [address] Type 2 diabetes mellitus with hemoglobin A1c goal of less than 7.0% ([facility])*; Need for prophylactic vaccination and inoculation against influenza; Cellulitis of umbilicus; Chronic obstructive pulmonary disease, unspecified COPD type ([facility]); Sarcoidosis of lung ([facility]); Severe obstructive sleep apnea; Chronic right-sided heart failure ([facility]) Allergies Active Allergy Reactions Criticality Noted Date Comments Doxycycline Other (Please comment) Low 07/25/2013 Headache documented as of this encounter (statuses as of 04/18/2023) Medications Medication Sig Dispensed Refills Start Date End Date Status NEBULIZER COMPRESSOR MISCIndications:Dolores rtness of breath,Wheezing,Tj coidosis Use as directed 1 Each 1 04/19/20 11 Active NEBULIZER/TUBING/MO UTHPIECE KITIndications:Shor tness of breath,Wheezing,Tj coidosis use with nebs 1 Kit 11 04/19/20 11 Active ASPIRIN 81 MG PO TABS 1 tablet by mouth daily 0 Active Misc. Devices MISC Use as directed. BIPAP at night 0 Active Glucose Blood (ONETOUCH VERIO) STRP Use up to 4 times a day E11.9 100 Strip 03/02/20 18 Active ONETOUCH ULTRASOFT LANCETS MISC Use as directed 4 times a day as needed for Hyperglycemia (high sugar) or Hypoglycemia (low sugar). Use up to four times a day as directed 1 Box Dosing Unit 03/02/20 18 Active DIURETIC TITRATION PLAN If no improvement on day 3, contact heart failure managing provider or [facility]bler. 1 Each 0 05/12/20 18 Active Fluticasone Propionate 50 MCG/ACT Nasal Suspension (FLONASE)Indication s:Nasal polyp Administer 2 Sprays into each nostril daily. Use in morning 48 g 3 05/27/20 20 Active Additional Information Patient taking differently:2 Brooks Each Nostril Daily(AM),Use in morning as needed, Indications: allergies, Reported on 04/22/2022 Azelastine HCl 0.1 % Nasal SolutionIndications :Seasonal allergic rhinitis due to pollen Administer 1 Brooks into nostril 2 times a day. 30 mL 12 09/13/19 21 Active Additional Information Patient taking differently:1 Brooks NasalBID PRN, Reported on 04/22/2022 Cromolyn Sodium 4 % Ophthalmic Solution (Crolom)Indications :Seasonal allergic rhinitis due to pollen Instill 1 Drop into both eyes 4 times a day as needed for Allergies or Itching. 10 mL 1 09/13/19 21 Active Levocetirizine Dihydrochloride 5 MG Oral TabletIndications:S easonal allergic rhinitis due to pollen Take 1 Tab by mouth every evening. 90 Tab 0 09/13/19 21 Active Additional Information Patient not taking.Reported on 04/04/2023 Multi Vitamin Daily Oral Tablet Take by mouth . 1 daily 0 Active Vitamin C 250 MG Oral Tablet (Ascorbic Acid) Take 1 Tablet by mouth in the morning. 2 to 3 tabs daily . 0 Active Spiriva Respimat 2.5 MCG/ACT Inhalation Aerosol Solution (Tiotropium Supply Monohydrate)Indicat ions:breathing Inhale by mouth 2 Puffs in the morning. 4 g 3 01/21/20 22 Active Lidocaine 4 % External Patch (Aspercreme) Place 1 Patch topically on the skin daily. 0 Active Albuterol Sulfate HFA 108 (90 Base) MCG/ACT Inhalation Aerosol Solution Inhale 2 Puffs by mouth every 4 hours as needed for Cough, Shortness of Breath or Wheezing. 18 g 11 05/11/20 22 Active Digoxin 125 MCG Oral Tablet (Lanoxin) Take 1 Tablet by mouth in the morning. 90 Tablet 3 06/22/19 23 Active oxygen IN GASIndications:Mayi re obstructive sleep apnea,Pulmonary hypertension (HCC),Sarcoidosis of lung (HCC) 2 LPM during rest, 3 LPM while ambulating, 4 LPM through Trilogy during sleep 1 Each 0 07/21/19 23 Active Torsemide 20 MG Oral Tablet (Demadex)Indication s:Chronic right-sided heart failure (HCC),Congestive heart failure with LV diastolic dysfunction, NYHA class 3 ([facility]) take 4 tablets by mouth twice a day 240 Tablet 11 07/27/19 23 Active Breo Ellipta 200-25 MCG/ACT Inhalation Aerosol Powder Breath Activated (fluticasone furoate-vilanterol) inhale 1 puff by mouth and INTO THE LUNGS every morning 60 Blister Dosing Unit 3 07/26/19 23 Active Losartan Potassium 25 MG Oral Tablet (Cozaar)Indications :Chronic right-sided heart failure (HCC),Essential hypertension with goal blood pressure less than 130/80 take 1 tablet by mouth daily 90 Tablet 3 09/14/19 23 Active Spironolactone 25 MG Oral Tablet (Aldactone) take 1 tablet by mouth three times a day 270 Tablet 3 10/04/19 23 Active Montelukast Sodium 10 MG Oral Tablet (Singulair)Indicati ons:Increased nasal secretion take 1 tablet by mouth at bedtime 90 Tablet 3 11/04/19 23 Active Ozempic (1 MG/DOSE) 4 MG/3ML Subcutaneous Solution Pen-injector (Semaglutide (1 MG/DOSE))Indication s:Type 2 diabetes mellitus with hemoglobin A1c goal of less than 7.0% ([facility]) INJECT 1 MG UNDER THE SKIN ONCE A WEEK. 3 mL 5 11/12/19 23 Active FeroSul 325 (65 Fe) MG Oral Tablet (Ferrous Sulfate)Indications :Iron deficiency anemia secondary to inadequate dietary iron intake take 1 tablet by mouth once daily with breakfast 90 Tablet 1 12/13/19 23 Active Potassium Chloride Bety ER 20 MEQ Oral Tablet Extended ReleaseIndications: Hypokalemia take 1 tablet by mouth twice a day 180 Tablet 1 12/16/19 23 Active Folic Acid 1 MG Oral Tablet take 1 tablet by mouth once daily 90 Tablet 2 12/25/19 23 Active Citalopram Hydrobromide 20 MG Oral Tablet (CeleXA)Indications :Major depressive disorder TAKE 1 TABLET BY MOUTH ONCE DAILY 90 Tablet 2 12/25/19 23 Active Omeprazole 20 MG Oral Capsule Delayed Release (PriLOSEC) take 1 capsule by mouth every morning before FIRST MEAL OF THE DAY 90 Capsule 2 01/11/20 23 Active Tamsulosin HCl 0.4 MG Oral Capsule (Flomax) take 1 capsule by mouth once daily 90 Capsule 1 03/21/20 23 Active Trulicity 1.5 MG/0.5ML Subcutaneous Solution Pen-injector Inject 1.5 mg under the skin once a week. 0 01/13/20 23 Active Terbinafine HCl 1 % External Cream (LamISIL AT ATHLETE'S FOOT)Indications:Ce llulitis of umbilicus Apply cream to affected area of umbilicus 2 times per day for up to 4 weeks 15 g 1 04/04/20 23 Active metFORMIN HCl ER 500 MG Oral Tablet Extended Release 24 Hour (Glucophage XR) take 2 tablets by mouth ONCE daily 180 Tablet 1 10/07/19 23 023 Discontinued Empagliflozin 25 MG Oral Tablet (Jardiance)Indicati ons:Type 2 diabetes mellitus with hemoglobin A1c goal of less than 7.0% (HCC) take 1 tablet by mouth once daily 90 Tablet 1 10/07/19 23 023 Discontinued Cephalexin 500 MG Oral Capsule (Keflex)Indications :Cellulitis of umbilicus Take 1 Capsule by mouth in the morning and 1 Capsule before bedtime. Do all this for 10 days. 20 Capsule 0 04/04/20 23 023 Hospital, Clinic, or Other Facility Administered Medication Ordered Dose Route Frequency Start Date End Date Status albuterol sulfate (PROVENTIL) (2.5 MG/3ML) 0.083% inhalation solution 2.5 mgIndications:Pulmonary hypertension (HCC),Chronic right-sided heart failure (HCC),Sarcoidosis,Oxygen dependent 2.5 mg NEBULIZER Q4H PRN 06/03/2017 Active documented as of this encounter (statuses as of 04/18/2023) Active Problems Problem Noted Date Diagnosed Date [...] as of this encounter (statuses as of 04/18/2023) Resolved Problems Problem Noted Date Diagnosed Date [...] Paranasal sinus disease 07/19/201306/07 [employer] Other*[id number] 06/08/2013 07/13/2016 Overview: Study Title: [employer] Markers for Patients with Cardiovascular Disease Project # [id number] Business [employer] Program Chair: Ariana Brady MD [phone] HTN, goal below 130/80 06/03/201302/25 Cholecystolithiasis 09/20/2012 07/02/19 19 Obesity, Class III, BMI 40-4 9.9 (morbid obesity) 12/23/2011 01/05/2017 half-way current use of systemic steroids 11/05/2011 07/02/2018 [...] as of this encounter (statuses as of 04/18/2023) Immunizations Name Administration Dates Next Due COVID-19 mRNA, LNP-s, No Pre serve, 2-Dose Series (Moderna) 08/08/2020,07/11/2020 PPD 08/29/2012,08/24/2011 Pneumococcal Conjugate Vacc, 13 Valent (Prevnar) 05/20/2017 Pneumococcal Polysaccharide PPV23 (Pneumovax) 04/19/2014,04/14/2009 SEASONAL INFLUENZA, PF, 6 M & Above, IM , (FLULAVAL or FLUZONE) 04/04/2023,03/12/2022,02/06/2021,03/05,02/28/2019,04/10/2018 Seasonal Influenza Virus Vac cine, Unspecified Formulation 02/28/2019,04/10/2018,05/20/2017,03/06,04/19/2014 Seasonal Influenza, Quadriva lent, No Preserve, IM [...] Sign Reading Time Taken Comments Blood Pressure 118/60 04/04/2023 2:11 PM EDT Pulse 55 04/04/2023 2:11 PM EDT Temperature 36.3 C (97.3 F) 04/04/2023 2:11 PM ED T Respiratory Rate 20 04/04/2023 2:11 PM EDT Oxygen Saturation 94% 04/04/2023 2:11 PM EDT Inhaled Oxygen Concentration - - Weight 104.9 kg (231 lb 3.2 oz) 04/04/2023 2:11 PM EDT Height 177.8 cm (5' 10") 04/04/2023 2:11 PM EDT Body Mass Index 33.17 04/04/2023 2:11 PM EDT documented in this [...] No 07/21/2014 documented as of this encounter Patient Instructions * Patient Instructions* Anastacia Dia LPN - 04/04/2023 2:18 PM EDT ~~PATIENT INSTRUCTIONS FOR FLU SHOT~~ Possible side effects of influenza vaccine, (flu shot), are usually mild and include: 1. Soreness or redness at injection site 2. Low grade fever 3. Body aches You may use Tylenol/Acetaminophen as needed for these symptoms. LET YOUR DOCTOR KNOW IMMEDIATELY IF YOU HAVE DIFFICULTY BREATHING OR SWALLOWING, EXPERIENCE ITCHINGOF FEET OR HANDS, HAVE SWELLING OF EYES, FACE OR INSIDE OF NOSE. documented in this encounter Progress Notes * Andrzej Downing MD - 04/04/2023 2:31 PM EDT Subjective: Guero Pugh is a 52 year old male here today for Chief Complaint Patient presents with Status Check Return in 6 months Medication Administration Flu and/or Pneumo Inj Pt here for routine recheck. Tolerating current meds. He has had issues with erythema around umbilicus and getting some foul-smelling drainage at times. No fever or systemic symptoms. Breathing has been stable lately. Denies chest pain, shortness of breath, cough, nausea, vomiting, abd pain, dysuria, urinary frequency, nocturia, fever, melena, hematochezia, peripheral edema. Past Medical History: Diagnosis Date BMI 35-39 ISOLATED (SEE ACTUAL BMI) 11/17/2009 Per Obesity Protocol, #19 C. 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 11/05/2011 Obesity, Class III, BMI 40-49.9 (morbid obesity) ([facility]) 12/23/2011 On home oxygen therapy ANGELES (obstructive sleep apnea) 12/24/2011 AHI 91.5 on baseline 12/10/11 Significant resting hypoxemia and nocturnal hypoxemia Pneumothorax 01/16/2016 Pulmonary blastomycosis ([facility]) Pulmonary hypertension ([facility]) Sarcoidosis Sarcoidosis, stage 2 ([facility]) 03/19/2018 Past Surgical History: Procedure Laterality Date BRONCHOSCOPY, DIAGNOSTIC 01/31/2012 BRONCHOSCOPY DIAGNOSTIC WITH OR WITHOUT WASHING performed by Beni Tracey MD at [place] [facility] [place] BRONCHOSCOPY, DIAGNOSTIC 07/22/2014 BRONCHOSCOPY DIAGNOSTIC WITH OR WITHOUT WASHING performed by Beni Tracey MD at ENDOS[place] [facility] [place] BRONCHOSCOPY, DIAGNOSTIC 11/01/2014 BRONCHOSCOPY DIAGNOSTIC WITH OR WITHOUT WASHING performed by La Mcnamara MD at ENDOS[place] [facility] [place] BRONCHOSCOPY, DIAGNOSTIC N/A 10/14/2015 BRONCHOSCOPY DIAGNOSTIC WITH OR WITHOUT WASHING performed by Sara Stephen MD at ENDOS[place] [facility] [place] CORONARY ANGIOGRAPHY W/RIGHT+LEFT CATH 06/08/2013 CORONARY ANGIOGRAPHY W/RIGHT+LEFT CATH performed by Haresh Wade DO at CARDIAC LABS [facility] [place] EGD, FLEXIBLE, PLACE GASTRO TUBE N/A 07/31/2014 ESOPHAGOGASTRODUODENOSCOPY (EGD), FLEXIBLE, TRANSORAL, WITH PERCUTANEOUS GASTROSTOMY INSERTION performed by Gary Amin MD at OR [facility] [place] [facility], PLANNED N/A 07/31/2014 TRACHEOSTOMY PLANNED performed by Gary Amin MD at OR [facility] [place] INFORMATION Left 05/13/2016 05/13/2016 skin, left upper arm, office procedure with Dr. Robert portillo skin and subcutaneous adipose tissue with acute, chronic and granulomatous inflammation with foreign bodyh giant cell reaction to keratin and fibrosis consistent with inflammatory reaction to ruptured cyst/follicle IR BIOPSY Right 05/17/2014 TRANSCATHETER BIOPSY performed by Quan Loomis MD at RADIOLOGY [facility] [place] MISCELLANEOUS ORDER ([facility] ONLY) June 2013 Basal cell removed from right cheek MISCELLANEOUS ORDER ([facility] ONLY) 06/08/2013 Cardiac Cath MISCELLANEOUS ORDER ([facility] ONLY) ACT 112 signed, 04/06/2019 NAIL BED, PERMANENT REMOVAL W/TUFT AMPUTATION 1987 REMOVAL OF TONSILS, UNDER AGE 11 RIGHT HEART CATH W/ O2 SAT AND CO Right 08/21/2020 RIGHT HEART CATH W/ O2 SAT AND CO performed by Dinesh Armstrong MD at CARDIAC LABS [facility] [place] TYMPANOSTOMY TUBES Review of patient's allergies indicates: Allergen Reactions Doxycycline Other (Please comment) Headache Current Outpatient Medications Medication Sig Dispense Refill [...] 3, contact heart failure managing provider or [facility] Shoe Cobbler. 1 Each 0 Fluticasone Propionate 50 MCG/ACT Nasal Suspension (FLONASE) Administer 2 Sprays into each nostril daily. Use in morning (Patient taking differently: Administer 2 Sprays into each nostril in the morning. Use in morning as needed.) 48 g 3 Azelastine HCl 0.1 % Nasal Solution Administer 1 Brooks into nostril 2 times a day. (Patient taking differently: Administer 1 Brooks into nostril 2 times a day as [...] Respimat 2.5 MCG/ACT Inhalation Aerosol Solution (Tiotropium Supply Monohydrate) Inhale bymouth 2 Puffs in the morning. 4 g 3 Albuterol Sulfate HFA 108 (90 Base) MCG/ACT Inhalation Aerosol Solution Inhale 2 Puffs by mouth every 4 hours as needed for Cough, Shortness of Breath or Wheezing. 18 g 11 Digoxin 125 MCG Oral Tablet (Lanoxin) Take 1 Tablet by mouth in the morning. 90 Tablet 3 oxygen IN GAS 2 LPM during rest, 3 LPM while ambulating, 4 LPM through Trilogy during sleep 1 Each 0 Torsemide 20 MG Oral Tablet (Demadex) take 4 tablets by mouth twice a day 240 Tablet 11 Breo Ellipta 200-25 MCG/ACT Inhalation Aerosol Powder Breath Activated (fluticasone furoate-vilanterol) inhale 1 puff by mouth and INTO THE LUNGS every morning 60 Blister Dosing Unit 3 Losartan Potassium 25 MG Oral Tablet (Cozaar) take 1 tablet by mouth daily 90 Tablet 3 Spironolactone 25 MG Oral Tablet (Aldactone) take 1 tablet by mouth three times a day 270 Tablet 3 Montelukast Sodium 10 MG Oral Tablet (Singulair) take 1 tablet by mouth at bedtime 90 Tablet 3 Ozempic (1 MG/DOSE) 4 MG/3ML Subcutaneous Solution Pen-injector (Semaglutide (1 MG/DOSE)) INJECT 1 MG UNDER THE SKIN ONCE A WEEK. 3 mL 5 FeroSul 325 (65 Fe) MG Oral Tablet [...] up to 4 weeks 15 g 1 Levocetirizine Dihydrochloride 5 MG Oral Tablet Take 1 Tab by mouth every evening. (Patient not taking: Reported on 04/04/2023) 90 Tab 0 Lidocaine 4 % External Patch (Aspercreme) Place 1 Patch topically on the skin daily. (Patient not taking: Reported on 04/01/2023) Trulicity 1.5 MG/0.5ML Subcutaneous Solution Pen-injector Inject 1.5 mg under the skin once a week.(Patient not taking: Reported on 04/04/2023) metFORMIN HCl ER 500 MG Oral Tablet Extended Release 24 Hour (Glucophage XR) take 2 tablets by mouth ONCE daily 180 Tablet 1 Empagliflozin 25 MG Oral Tablet (Jardiance) take 1 tablet by mouth once daily 90 Tablet 1 Current Facility-Administered Medications Medication Dose Route Frequency Provider Last Rate Last Admin albuterol sulfate (PROVENTIL) (2.5 MG/3ML) 0.083% inhalation solution 2.5 mg 2.5 mg Nebulizer Q4H PRN Louise Corbett CRNP 2.5 mg at 01/11/20 0950 Objective: BP 118/60 | Pulse 55 | Temp 36.3 C (97.3 F) (Temporal Artery) | Resp 20 | Ht 1.778 m(5' 10") | Wt 104.9 kg (231 lb 3.2 oz) | SpO2 94% | BMI 33.17 kg/m | BSA 2.28 m GEN: NAD HEENT: Benign NECK: Supple with no LAD, TM, JVD CHEST: CTA B CV: RRR ABD: Soft, NT/ND, No HSM, NABS EXT: No c,c,e Assessment and Plan: Type 2 diabetes mellitus with hemoglobin A1c goal of less than 7.0% (HCC) (Primary) - ALBUMIN / CREATININE RATIO, URINE; Future; Expected date: 04/04/2023 Need for prophylactic vaccination and inoculation against influenza - INFLUENZA VACC, QUAD, PF, 6 MONTHS & UP, 0.5 ML, IM Cellulitis of umbilicus - Terbinafine HCl 1 % External Cream (LamISIL AT ATHLETE'S FOOT); Apply cream to affected area of umbilicus 2 times per day for up to 4 weeks - Cephalexin 500 MG Oral Capsule (Keflex); Take 1 Capsule by mouth in the morning and 1 Capsule before bedtime. Do all this for 10 days. Chronic obstructive pulmonary disease, unspecified COPD type (HCC) Sarcoidosis of lung (HCC) Severe obstructive sleep apnea Chronic right-sided heart failure (HCC) -continue same meds Follow Up: Return in about 6 months (around 10/04/2023) for recheck. | For: recheck 30 min with pt and chart review. Andrzej Downing MD * Anastacia Dai LPN - 04/04/2023 2:18 PM EDT PRE - ADMINISTRATION DOCUMENTATION Are you experiencing any cold symptoms or fever? No Have you had Guillain[place] Syndrome (an illness that causes paralysis) within the last 6 weeks? No Have you had the flu shot in the past? YES Have you ever had a reaction to the flu shot? No Anastacia Dai LPN, 04/04/2023 2:18 PM Immunization Administration Documentation Time Out Procedure Performed: Yes Patient Identified (Ask Name/Date of ): Yes Does the patient have a fever greater than 101 degrees today? No Patient allergic to latex? No VFC Stock: No Immunization(s) verified: Yes, Immunization Name: Flu, VIS Sheet(s) given: Yes Verified Side and Site: Yes Verified Shot(s) with Parent(s)/Patient: Yes documented in this encounter Nursing Notes * Anastacia Dai LPN - 04/04/2023 2:11 PM EDT The patient has been properly identified by confirmation of name and date of . Chief Complaint Patient presents with Status Check Return in 6 months documented in this encounter Plan of Treatment Upcoming Encounters Date Type Department Care Team (Late st Contact Info) Description 08/31/2023 2:00 PM EDT Cardiac Studies Cardiac Studies, [facility] [address] [facility] [place] [address] 09/05/2023 1:00 PM EDT Office Visit Cardiology, [facility] [address] [facility] [place] [address] Tresa Hammonds CRNP [address] [facility] [place] [address] 10/06/2023 2:20 PM EDT Office Visit [place] [address] [place] [id number] Andrzej Downing MD [address] [place] [address] 11/16/2023 11:30 AM EDT Imaging Radiology, [address] [place] [address] 11/16/2023 1:00 PM EDT Office Visit Rheumatology [address] [place] [address] Faustino Delgado MD [address] [place] [address] [place] [address] 02/15/2024 2:30 PM EDT Nutrition Services Nutrition & Weight Management, [facility] [address] [place] [address] Louise Zarate RDN [address] [facility] [place] [address] Scheduled Orders Name Type Priority Associated Diagnoses Orde r Schedule ALBUMIN / CREATININE RATIO, URINE Lab Routine Type 2 diabetes mellitus with hemoglobin A1c goal of less than 7.0% (HCC) Expected: 04/04/2023 (Approximate), Expires: 04/03/2024 Health Maintenance Due Date Last Done Comments [...] COMPLETED IN PAST YEAR FOR COPD 04/04/2024 04/04/2023 Lipid Panel 03/30/2027 03/30/2022, 08/06, 07/21/2020, Additional history exists DTaP,Tdap,and Td Vaccines (3 - Td or Tdap) 09/18/2028 09/18/2018, 09/11/2008 Pneumococcal Vaccine: Pediatrics (0 to 5 Years) and At-Risk Patients (6 to 64 Years) (3 - PPSV23 or PCV20) 2034 05/20/2017, 04/19/2014, 04/14/2009 VITAMIN D LEVEL ONCE IN A LIFETIME-USE SMARTSET# 24024 Completed 09/23/2022, 09/03/2021, 08/30/2018, Additional history exists [...] hemoglobin A1c goal of less than 7.0% (HCC)- Primary Need for prophylactic vaccination and inoculation against influenza Cellulitis of umbilicus Cellulitis and abscess of trunk Chronic obstructive pulmonary disease, unspecified COPD type (HCC) Sarcoidosis of lung (HCC) Sarcoidosis Severe obstructive sleep apnea Obstructive sleep apnea (adult) (pediatric) Chronic right-sided heart failure (HCC) Congestive heart failure, unspecified documented in this encounter Advance Directives Latest [...] the patient have Health Care Power of [place] Hand? No Care Teams Denture Processor Relationship Specialty Start Date End Date Andrzej Downing MD [address] [place] [address] PCP - General Family Medicine 03/20/19 documented as of this encounter
--- OUTSIDE RECORDS SUMMARY | 2023-08-31 04:23 | External Medical Summary | Summary of Care ---
Author Name Unknown Organization [facility] Address [address] [place] [address] Phone [phone] Care Team Providers Care Air Table Operator Name Role Phone Andrzej Downing MD Primary Care Provider [phone] Reason for Visit * Reason Onset Date Comments Weight Check 05/27/2023 Encounter Details Date Type Department Care Team (Late st Contact Info) Description 05/27/2023 Emergency Veterinarian Telephone Care Coordination and Integration [address], [place] [id number] Payal Phillips, LYNNE [address] [place] [address] Weight Check Allergies Active Allergy Reactions Criticality Noted Date Comments Doxycycline Other (Please comment) Low 07/25/2013 Headache documented as of this encounter (statuses as of 05/27/2023) Medications Medication Sig Dispensed Refills Start Date End Date Status NEBULIZER COMPRESSOR MISCIndications:Shor tness of breath,Wheezing,Sarc oidosis Use as directed 1 Each 1 04/19/2011 Active NEBULIZER/TUBING/VANNA THPIECE KITIndications:Short ness of breath,Wheezing,Sarc oidosis use with nebs 1 Kit 11 04/19/2011 Active ASPIRIN 81 MG PO TABS 1 tablet by mouth daily 0 Active Misc. Devices MISC Use as directed. BIPAP at night 0 Active Glucose Blood (ONETOUCH VERIO) STRP Use up to 4 times a day E11.9 100 Strip 11 03/02/2018 Active ONETOUCH ULTRASOFT LANCETS [facility] Use as directed 4 times a day as needed for Hyperglycemia (high sugar) or Hypoglycemia (low sugar). Use up to four times a day as directed 1 Box Dosing Unit 11 03/02/2018 Active DIURETIC TITRATION PLAN If no improvement on day 3, contact heart failure managing provider or [facility] Emergency Veterinarian. 1 Each 0 05/12/2018 Active Fluticasone Propionate 50 MCG/ACT Nasal Suspension (FLONASE)Indications :Nasal polyp Administer 2 Sprays into each nostril daily. Use in morning 48 g 3 05/27/2020 Active Additional Information Patient taking differently:2 [place] Each Nostril Daily(AM),Use in morning as needed, Indications: allergies, Reported on 04/22/2022 Azelastine HCl 0.1 % Nasal SolutionIndications: Seasonal allergic rhinitis due to pollen Administer 1 [place]um into nostril 2 times a day. 30 mL 12 09/12/2020 Active Additional Information Patient taking differently:1 Blum NasalBID PRN, Reported on 04/22/2022 Cromolyn Sodium 4 % Ophthalmic Solution (Crolom)Indications: Seasonal allergic rhinitis due to pollen Instill 1 Drop into both eyes 4 times a day as needed for Allergies or Itching. 10 mL 1 09/12/2020 Active Levocetirizine Dihydrochloride 5 MG Oral TabletIndications:Se asonal allergic rhinitis due to pollen Take 1 Tab by mouth every evening. 90 Tab 0 09/12/2020 Active Additional Information Patient not taking.Reported on 04/04/2023 Multi Vitamin Daily Oral Tablet Take by mouth . 1 daily 0 Active Vitamin C 250 MG Oral Tablet (Ascorbic Acid) Take 1 Tablet by mouth in the morning. 2 to 3 tabs daily . 0 Active Spiriva Respimat 2.5 MCG/ACT Inhalation Aerosol Solution (Tiotropium [place] Monohydrate)Indicati ons:breathing Inhale by mouth 2 Puffs in the morning. 4 g 3 01/20/2022 Active Lidocaine 4 % External Patch (Aspercreme) Place 1 Patch topically on the skin daily. 0 Active Albuterol Sulfate HFA 108 (90 Base) MCG/ACT Inhalation Aerosol Solution Inhale 2 Puffs by mouth every 4 hours as needed for Cough, Shortness of Breath or Wheezing. 18 g 11 05/11/2022 Active Digoxin 125 MCG Oral Tablet (Lanoxin) Take 1 Tablet by mouth in the morning. 90 Tablet 3 06/22/2022 Active oxygen IN GASIndications:Sever e obstructive sleep apnea,Pulmonary hypertension (HCC),Sarcoidosis of lung (HCC) 2 LPM during rest, 3 LPM while ambulating, 4 LPM through Trilogy during sleep 1 Each 0 07/21/2022 Active Torsemide 20 MG Oral Tablet (Demadex)Indications :Chronic right-sided heart failure (HCC),Congestive heart failure with LV diastolic dysfunction, NYHA class 3 ([facility]) take 4 tablets by mouth twice [...] at bedtime 90 Tablet 3 11/03/2022 Active Ozempic (1 MG/DOSE) 4 MG/3ML Subcutaneous Solution Pen-injector (Semaglutide (1 MG/DOSE))Indications :Type 2 diabetes mellitus with hemoglobin A1c goal of less than 7.0% ([facility]) INJECT 1 MG UNDER THE SKIN ONCE A WEEK. 3 mL 5 11/11/2022 Active FeroSul 325 (65 Fe) MG Oral [...] once daily 90 Capsule 1 03/21/2023 Active Trulicity 1.5 MG/0.5ML Subcutaneous Solution Pen-injector Inject 1.5 mg under the skin once a week. 0 01/12/2023 Active Terbinafine HCl 1 % External Cream [...] 04/06/2023 Active Empagliflozin 25 MG Oral Tablet (Jardiance)Indicatio ns:Type 2 diabetes mellitus with hemoglobin A1c goal of less than 7.0% (HCC) take 1 tablet by mouth once daily 90 Tablet 1 04/06/2023 Active metOLazone 2.5 MG Oral Tablet (Zaroxolyn)Indicatio ns:Hypertensive heart disease with chronic right-sided congestive heart failure (HCC) Take 2.5 mg daily for three days when weight increases 3 pounds in 24 hours or 5 pounds in one week. 30 Tablet 0 05/27/2023 Active Hospital, Clinic, or Other Facility Administered Medication Ordered Dose Route Frequency Start Date End Date Status albuterol sulfate (PROVENTIL) (2.5 MG/3ML) 0.083% inhalation solution 2.5 mgIndications:Pulmonary hypertension (HCC),Chronic right-sided heart failure (HCC),Sarcoidosis,Oxygen dependent 2.5 mg NEBULIZER Q4H PRN 06/03/2017 Active documented as of this encounter (statuses as of 05/27/2023) Active Problems Problem Noted Date Diagnosed Date [...] as of this encounter (statuses as of 05/27/2023) Resolved Problems Problem Noted Date Diagnosed Date [...] Paranasal sinus disease 07/19/201306/07 [employer] Other*[id number] 06/08/2013 07/13/2016 Overview: Study Title: Genomic Markers for Patients with Cardiovascular Disease Project # [id number] Motor Racer: Ariana Brday MD [phone] HTN, goal below 130/80 06/03/201302/25 Cholecystolithiasis 09/20/2012 07/02/19 19 Obesity, Class III, BMI 40-4 9.9 (morbid obesity) 12/23/2011 01/05/2017 halfway current use of systemic steroids 11/05/2011 07/02/2018 [...] as of this encounter (statuses as of 05/27/2023) Immunizations Name Administration Dates Next Due COVID-19 [...] encounter Miscellaneous Notes * Telephone Encounter - Hieu Almanzar MD - 05/27/2023 5:31 PM EST Weight 225, up 5 pounds from earlier in the week. If weight 226 or higher tomorrow, start taking metolazone 2.5 mg daily for 3 days and notify the office. New prescription sent to [facility].Discussed with patient by phone. Hieu Almanzar MD * Telephone Encounter - Payal Phillips RN - 05/27/2023 12:[address] Almanzar, SITUATION: Patient's weight today was 225 lbs, was 220 lbs on 05/23, 221.5 on 05/24 & 224 on 05/26 BACKGROUND: Patient with hx of CHF, DM, Sarcoidosis, Pulmonary HTN-no recent hospitalizations, usesO2 at 2-5 liters during the day, BIPAP with 6 liters O2 at night ASSESSMENT: Patient denies increased SOB, cough, fever, chills Patient denies increased LE/abdominal edema Says he has been eating a little more salty food lately, ate some soup last night that was a bit salty Patient states he feels fine, no worse than normal RECOMMENDATION: Patient was ordered to take Metolazone 2.5 mg with weight gain, however he has not had to use it recently & script has If re-ordered, please send to [facility] I have encouraged patient to be careful about his salt intake, explained if he has increased SOB, cough, LE edema or angina that he should report to the ER thanks Payal Phillips RN Care Coordination and Integration [address] [facility] [address] documented in this encounter Plan of Treatment Upcoming Encounters Date Type Department Care Team (Late st Contact Info) Description 08/31/2023 2:00 PM EDT Cardiac Studies Cardiac Studies, [facility] [address] [facility] [place] [address] 09/05/2023 1:00 PM EDT Office Visit Cardiology, [facility] [address] [place] [address] Tresa Hammonds CRNP [address] [place] [address] 10/06/2023 2:20 PM EDT Office Visit Family [facility] [address] [place] [address] Andrzej Downing MD [address] [place] [address] 11/16/2023 11:30 AM EDT Imaging Radiology, [address] [place] [address] 11/16/2023 1:00 PM EDT Office Visit Rheumatology [address] [place] [address] Faustino Delgado MD [address] [place] [address] [place] [address] 02/15/2024 2:30 PM EDT Nutrition Services Nutrition & Weight Management, [facility] [address] [place] [address] Louise Zarate RDN [address] [place] [address] Health Maintenance Due Date Last Done Comments [...] D LEVEL ONCE IN A LIFETIME-USE SMARTSET# [id number] Completed 09/23/2022, 09/03/2021, 08/30/2018, Additional history exists [...] as of this encounter Visit Diagnoses Diagnosis Hypertensive heart disease with chronic right-sided congestive heart failure (HCC)- Primary documented in this encounter Advance Directives Latest [...] the patient have Health Care Power of Private Chef? No Care Teams Air Table Operator Relationship Specialty Start Date End Date Andrzej Downing MD [address] [place] [address] PCP - General Family Medicine 03/20/19 documented as of this encounter
--- OUTSIDE RECORDS SUMMARY | 2023-08-31 04:23 | External Medical Summary | Summary of Care ---
Author Name Unknown Organization [facility] Address [address] [place] [address] Phone [phone] Care Team Providers Care Summer Nanny Name Role Phone Tj Anderson MD Primary Care Provider [phone]- [phone] Reason for Visit * Reason Comments eRx-Medication Refill Encounter Details Date Type Department Care Team (Late st Contact Info) Description 06/06/[address] [facility] [address] [place] [address] Tj Anderson MD [address] [place] [address] Type 2 diabetes mellitus with hemoglobin A1c goal of less than 7.0% ([facility]) Allergies Active Allergy Reactions Criticality Noted Date Comments Doxycycline Other (Please comment) Low 07/25/2013 Headache documented as of this encounter (statuses as of 06/07/2023) Medications Medication Sig Dispensed Refills Start Date [...] times a day E11.9 100 Strip 11 03/02/20 18 Active ONETOUCH ULTRASOFT LANCETS MISC Use as directed 4 times a day as needed for Hyperglycemia (high sugar) or Hypoglycemia (low sugar). Use up to four times a day as directed 1 Box Dosing Unit 11 03/02/20 18 Active DIURETIC TITRATION PLAN If no improvement on day 3, contact heart failure managing provider or [facility] Patient Registration Specialist. 1 Each 0 05/12/20 18 Active Fluticasone Propionate 50 MCG/ACT Nasal Suspension (FLONASE)Indication s:Nasal polyp Administer 2 Sprays into each nostril daily. Use in morning 48 g 3 05/27/20 20 Active Additional Information Patient taking differently:2 [place] Each Nostril Daily(AM),Use in morning as needed, Indications: allergies, Reported on 04/22/2022 Azelastine HCl 0.1 % Nasal SolutionIndications :Seasonal allergic rhinitis due to pollen Administer 1 [place] into nostril 2 times a day. 30 mL 12 09/13/19 21 Active Additional Information Patient taking differently:1 [place] NasalBID PRN, Reported on 04/22/2022 Cromolyn Sodium 4 % Ophthalmic Solution (Crolom)Indications :Seasonal allergic rhinitis due to pollen Instill 1 Drop into both eyes 4 times a day as needed for Allergies or Itching. 10 mL 1 09/13/19 21 Active Levocetirizine Dihydrochloride 5 MG Oral TabletIndications:S easonal allergic rhinitis due to pollen Take 1 Tab by mouth every evening. 90 Tab 0 09/13/19 Active Additional Information Patient not taking.Reported on 04/04/2023 Multi Vitamin Daily Oral Tablet Take by mouth . 1 daily 0 Active Vitamin C 250 MG Oral Tablet (Ascorbic Acid) Take 1 Tablet by mouth in the morning. 2 to 3 tabs daily . 0 Active Spiriva Respimat 2.5 MCG/ACT Inhalation Aerosol Solution (Tiotropium [place] Monohydrate)Indicat ions:breathing Inhale by mouth 2 Puffs [...] bedtime 90 Tablet 3 11/04/19 23 Active FeroSul 325 (65 Fe) MG [...] daily 90 Capsule 1 03/21/20 23 Active Terbinafine HCl 1 % External Cream (LamISIL AT ATHLETE'S FOOT)Indications:Ce llulitis of umbilicus Apply cream to affected area of umbilicus 2 times per day for up to 4 weeks 15 g 1 04/04/20 23 Active metFORMIN HCl ER 500 MG Oral Tablet Extended Release 24 Hour (Glucophage XR) take 2 tablets by mouth ONCE daily 180 Tablet 1 04/06/20 23 Active Empagliflozin 25 MG Oral Tablet (Jardiance)Indicati ons:Type 2 diabetes mellitus with hemoglobin A1c goal of less than 7.0% (HCC) take 1 tablet by mouth once daily 90 Tablet 1 04/06/20 23 Active metOLazone 2.5 MG Oral Tablet (Zaroxolyn)Indicati ons:Hypertensive heart disease with chronic right-sided congestive heart failure (HCC) Take 2.5 mg daily for three days when weight increases 3 pounds in 24 hours or 5 pounds in one week. 30 Tablet 0 05/27/20 23 Active Ozempic (1 MG/DOSE) 4 MG/3ML Subcutaneous Solution Pen-injector (Semaglutide (1 MG/DOSE))Indication s:Type 2 diabetes mellitus with hemoglobin A1c goal of less than 7.0% (HCC) INJECT 1MG UNDER THE SKIN ONCE WEEKLY 3 mL 5 06/07/19 24 Active Ozempic (1 MG/DOSE) 4 MG/3ML Subcutaneous Solution Pen-injector (Semaglutide (1 MG/DOSE))Indication s:Type 2 diabetes mellitus with hemoglobin A1c goal of less than 7.0% (HCC) INJECT 1 MG UNDER THE SKIN ONCE A WEEK. 3 mL 5 11/12/19 23 024 Discontinued Trulicity 1.5 MG/0.5ML Subcutaneous Solution Pen-injector Inject 1.5 mg under the skin once a week. 0 01/13/20 23 024 Discontinued(Ri dication List Clean Up) Hospital, Clinic, or Other Facility Administered Medication Ordered Dose Route Frequency Start Date End Date Status albuterol sulfate (PROVENTIL) (2.5 MG/3ML) 0.083% inhalation solution 2.5 mgIndications:Pulmonary hypertension (HCC),Chronic right-sided heart failure (HCC),Sarcoidosis,Oxygen dependent 2.5 mg NEBULIZER Q4H PRN 06/03/2017 Active documented as of this encounter (statuses as of 06/07/2023) Active Problems Problem Noted Date Diagnosed Date [...] as of this encounter (statuses as of 06/07/2023) Resolved Problems Problem Noted Date Diagnosed Date [...] Paranasal sinus disease 07/19/201306/07 [employer] Other*[id number] 06/08/2013 07/13/2016 Overview: Study Title: [employer] Markers for Patients with Cardiovascular Disease Project # [id number] Manager Behavior: Ariana Brady MD [phone] HTN, goal below 130/80 06/03/201302/25 Cholecystolithiasis 09/20/2012 [...] as of this encounter (statuses as of 06/07/2023) Immunizations Name Administration Dates Next Due COVID-19 [...] encounter Miscellaneous Notes * Telephone Encounter - Julianne Otoole [facility] - 06/07/2023 2:52 PM ESTSigned Prescriptions: Disp Refills Ozempic (1 MG/DOSE) 4 MG/3ML Subcutaneous *3 mL 5 Sig: INJECT 1MG UNDER THE SKIN ONCE WEEKLYAuthorizing Provider: TJ ANDERSON User: JULIANNE OTOOLE documented in this encounter Plan of Treatment Upcoming Encounters Date Type Department Care Team (Late st Contact Info) Description 08/31/2023 2:00 PM EDT Cardiac Studies Cardiac Studies, [facility] [address] [facility] [place] [address] 09/05/2023 1:00 PM EDT Office Visit Cardiology, [facility] [address] [facility] [place] [address] Tresa Hammonds CRNP [address] [facility] [place] [address] 10/06/2023 2:20 PM EDT Office Visit [facility] [address] [place] [facility] [place] [phone] Tj Anderson MD [address] [place] [address] 11/16/2023 11:30 AM EDT Imaging Radiology, [address] [place] [address] 11/16/2023 1:00 PM EDT Office Visit Rheumatology [address] [place] [address] Faustino Delgado MD [address] [place] [address] [place] [address] 02/15/2024 2:30 PM EDT Nutrition Services Nutrition & Weight Management, [facility] [address] [place] [address] Louise Zarate RDN [address] [place] [address] Health Maintenance Due Date Last Done Comments [...] D LEVEL ONCE IN A LIFETIME-USE SMARTSET# [id number] Completed 09/23/2022, 09/03/2021, 08/30/2018, Additional history exists [...] than 7.0% (HCC) documented in this encounter Advance Directives Latest [...] the patient have Health Care Power of [place] Patroller? No Care Teams Summer Nanny Relationship Specialty Start Date End Date Tj Anderson MD [address] [facility] [place] [address] PCP - General Family Medicine 03/20/19 documented as of this encounter
--- OUTSIDE RECORDS SUMMARY | 2023-08-31 04:23 | External Medical Summary ---
Author Name Unknown Address Unknown Organization K01:[facility] - [address] [facility] [place] [id number] Laboratory Report Ordering Provider Test Date Status TODD COURTNEY 06/09/2023 10:42:00 Final Observation Date Value Abnormality Reference (Units) Status Bacteria identified in Specimen by Culture 06/09/2023 10:42:00 Heavy growth normal joe Final Gram Stain 06/09/2023 10:42:00 Purulent specimen, >25 neutrophils/low power microscopic field. Abnormal Final Gram Stain 06/09/2023 10:42:00 Many Polymorphonuclear leukocytes Abnormal Final Gram Stain 06/09/2023 10:42:00 Moderate Mixed morphotypes Abnormal Final Test: Culture, Respiratory, Lower, Aerobic
Specimen Source: Sputum
Specimen Type: Lower Respiratory
Specimen Date: 06/09/2023 10:42 AM
Result Date: 06/11/2023 7:31 AM
Result Status: Final result
Abnormal: Yes
Resulting Lab: [facility]
[address]
[place] [address]

CULTURE

Heavy growth normal joe

STAIN

Purulent specimen, >25 neutrophils/low power microscopic field.

Many Polymorphonuclear leukocytes

Moderate Mixed morphotypes

null Performing Location [facility] - [address] [facility] [place]. [facility] [address]
--- OUTSIDE RECORDS SUMMARY | 2023-08-31 04:24 | External Medical Summary | Summary of Care ---
Author Name Unknown Organization [facility] Address [address] [place] [address] Phone [phone] Care Team Providers Care Therapeutic Consultant Name Role Phone Andrzej Downing MD Primary Care Provider [phone] Reason for Referral * Precert (Within 10 days (routine)) - Pending Review Specialty Diagnoses / Procedures Referred By Contac t Referred To Contact Cardiac Studies Diagnoses Chronic respiratory failure with hypoxia and hypercapnia (HCC) Chronic right-sided heart failure (HCC) Sarcoidosis of lung (HCC) Severe obstructive sleep apnea Pulmonary hypertension (HCC) Procedures ECHO, COMPLETE (2D), TRANS-THORACIC Louise Corbett CRNP [address] [place] [address] Referral ID Status Reason Start Date Expiration Date Visits Requested Visits Authorized [id number] Pending Review Precert 08/31/2023 999 999 Reason for Visit * Reason Comments Follow Up PH Clinic Encounter Details Date Type Department Care Team (Late st Contact Info) Description 04/01/2023 11:30 AM EDT Office Visit Pulmonary Medicine, [place] [address] [place] [address] Jose Dsouza MD [address] [place] [address] Chronic respiratory failure with hypoxia and hypercapnia (HCC)*; Chronic right-sided heart failure (HCC); Sarcoidosis of lung (HCC); Severe obstructive sleep apnea; Pulmonary hypertension (HCC) Allergies Active Allergy Reactions Criticality Noted Date Comments Doxycycline Other (Please comment) Low 07/25/2013 Headache documented as of this encounter (statuses as of 04/01/2023) Medications Medication Sig Dispensed Refills Start Date [...] 3, contact heart failure managing provider or [facility]. 1 Each 0 05/12/2018 Active Fluticasone Propionate 50 MCG/ACT Nasal Suspension (FLONASE)Indications :Nasal polyp Administer 2 Sprays into each nostril daily. Use in morning 48 g 3 05/27/2020 Active Additional Information Patient taking differently:2 [place] Each Nostril Daily(AM),Use in morning as needed, Indications: allergies, Reported on 04/22/2022 Azelastine HCl 0.1 % Nasal SolutionIndications: Seasonal allergic rhinitis due to pollen Administer 1 [place] into nostril 2 times a day. 30 mL 12 09/12/2020 Active Additional Information Patient taking differently:1 [place] NasalBID PRN, Reported on 04/22/2022 Cromolyn Sodium [...] Tab 0 09/12/2020 Active Additional Information Patient taking differently:5 mg OralPRN, Indications: allergies, Reported on 08/13/2022 Multi Vitamin Daily Oral Tablet Take by mouth . 1 daily 0 Active Vitamin C 250 MG Oral Tablet (Ascorbic Acid) Take 1 Tablet by mouth in the morning. 2 to 3 tabs daily . 0 Active Spiriva Respimat 2.5 MCG/ACT Inhalation Aerosol Solution (Tiotropium [place] Monohydrate)Indicati ons:breathing Inhale by mouth 2 Puffs [...] a day 270 Tablet 3 10/03/2022 Active metFORMIN HCl ER 500 MG Oral Tablet Extended Release 24 Hour (Glucophage XR) take 2 tablets by mouth ONCE daily 180 Tablet 1 10/06/2022 Active Empagliflozin 25 MG Oral Tablet (Jardiance)Indicatio ns:Type 2 diabetes mellitus with hemoglobin A1c goal of less than 7.0% (HCC) take 1 tablet by mouth once daily 90 Tablet 1 10/06/2022 Active Montelukast Sodium 10 MG Oral Tablet [...] skin once a week. 0 01/12/2023 Active Hospital, Clinic, or Other Facility Administered Medication Ordered Dose Route Frequency Start Date End Date Status albuterol sulfate (PROVENTIL) (2.5 MG/3ML) 0.083% inhalation solution 2.5 mgIndications:Pulmonary hypertension (HCC),Chronic right-sided heart failure (HCC),Sarcoidosis,Oxygen dependent 2.5 mg NEBULIZER Q4H PRN 06/03/2017 Active documented as of this encounter (statuses as of 04/01/2023) Active Problems Problem Noted Date Diagnosed Date [...] as of this encounter (statuses as of 04/01/2023) Resolved Problems Problem Noted Date Diagnosed Date [...] Paranasal sinus disease 07/19/201306/07 [employer] Other*[id number] 06/08/2013 07/13/2016 Overview: Study Title: Genomic Markers for Patients with Cardiovascular Disease Project # [id number] Manager Cost: Ariana Brady MD [phone] HTN, goal below 130/80 06/03/201302/25 Cholecystolithiasis 09/20/2012 07/02/19 19 Obesity, Class III, BMI 40-4 9.9 (morbid obesity) 12/23/2011 01/05/2017 longterm current use of systemic steroids 11/05/2011 07/02/2018 [...] as of this encounter (statuses as of 04/01/2023) Immunizations Name Administration Dates Next Due COVID-19 mRNA, LNP-s, No Pre serve, 2-Dose Series (Moderna) 08/08/2020,07/11/2020 PPD 08/29/2012,08/24/2011 Pneumococcal Conjugate Vacc, 13 Valent (Prevnar) 05/20/2017 Pneumococcal Polysaccharide PPV23 (Pneumovax) 04/19/2014,04/14/2009 SEASONAL INFLUENZA, PF, 6 M & Above, IM , (FLULAVAL or FLUZONE) 03/12/2022,02/06/2021,03/05/2020,02/28,04/10/2018 Seasonal Influenza Virus Vac cine, Unspecified Formulation [...] Sign Reading Time Taken Comments Blood Pressure 110/62 04/01/2023 11:00 AM EDT Pulse 74 04/01/2023 11:00 AM EDT Temperature - - Respiratory Rate 15 04/01/2023 11:00 AM EDT Oxygen Saturation 93% 04/01/2023 11:00 AM EDT 4 LNC Inhaled Oxygen Concentration - - Weight 103 kg (227 lb) 04/01/2023 11:00 AM EDT Height - - Body Mass Index 32.57 09/30/2022 2:30 PM EDT documented in this encounter Functional [...] or making decisions? (5 years old or older No 07/21/2014 documented as of this encounter Progress Notes * Lousie Corbett CRNP - 04/01/2023 11:27 AM EDT Pulmonary Hypertension Clinic [facility], [address] Guero Pugh [id number] Date - 04/01/23 Patient is here today for follow-up of Group 2,3, and 5 Pulmonary Hypertension. 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 Patient initially seen by Dr. Roslaes in 2008 for concern for Asthma, after review of CT chest he went for Bronchoscopy, found to have Sarcoidosis. He was initially treated with Remicade, MTX and steroids. In 2014, he presented to Outside hospital due to worsening in respiratory status, developed Respiratory failure, transferred to [facility], intubated. Underwent Broncho, concerning for Crypto vs Blasto. (+) Blastomycosis and was treated with Amphotericin B initially and then adjusted to itraconazoledue to WENDI then back to Amphotericin B. He was discharged to rehab and then de-cannulated. He was followed by Dr. Stephen, continued on Methotrexate, Prednisone and inhaled medications. Now currently follow with Dr. Dsouaz, last seen in the Pulmonary clinic by Dr. Dsouza on 08/13/2022. HPI - Since last visit patient reports he reports he has been doing well. He is down 20 pounds since last visit. He is following with [facility] [employer] [facility]. Denies fever, chills or night sweats. Cough: more due to sinus drainage Sputum production: denies denies hemoptysis Night time symptoms: Denies cough or dyspnea. Inhaled Medications: Spiriva Respimat daily, Breo daily and albuterol HFA (rarely using) PH medications: denies Diuretics: Torsemide 80 mg BID and aldacone Dig: Oxygen: rest 2 Exertion 4-5 LPM pulsed when out of the house CPAP/BiPAP: BiPAP at HS with oxygen 6 LPM bled into machine Can walk 1 flights of stairs before getting SOB ER visits or hospitalization:denies PAH specific - denies chest pain, lightheadedness, fatigue, weakness or syncope. - dry cough or exertional nausea or vomiting. - denies change in exercise tolerance. - denies leg swelling WHO Functional Class: II Class I: Patients with pulmonary hypertension but without resulting limitation of physical activity. Ordinary physical activity does not cause undue dyspnea of fatigue, chest pain or near syncope. Class II: Patients with pulmonary hypertension resulting in slight limitation of physical activity.They are comfortable at rest. Ordinary physical activity causes undue dyspnea or fatigue, chest pain or near syncope. Class III: Patients with pulmonary hypertension resulting in marked limitation of physical activity. They are comfortable at rest. Less than ordinary activity causes undue dyspnea or fatigue, chest pain or near syncope. Class IV: Patients with pulmonary hypertension with inability to carry out any physical activity without symptoms. These patients manifest signs of right heart failure. Dyspnea and/or fatigue may even be present at rest. Discomfort is increased by any physical activity. Past Medical History: Diagnosis Date BMI 35-39 ISOLATED (SEE ACTUAL BMI) 11/17/2009 Per Obesity Protocol, #19 C. 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 1 Each 0 Fluticasone Propionate 50 MCG/ACT Nasal Suspension (FLONASE) Administer 2 Sprays into each nostril daily. Use in morning (Patient taking differently: Administer 2 Sprays into each nostril in the morning. Use in morning as needed.) 48 g 3 Azelastine HCl 0.1 % Nasal Solution Administer 1 [place] into nostril 2 times a day. (Patient taking differently: Administer 1 [place] into nostril 2 times a day as needed.) 30 mL 12 Cromolyn Sodium 4 % Ophthalmic Solution (Crolom) Instill 1 Drop into both eyes 4 times a day as needed for Allergies or Itching. 10 mL 1 Levocetirizine Dihydrochloride 5 MG Oral Tablet Take 1 Tab by mouth every evening. (Patient taking differently: Take 1 Tablet by mouth as needed.) 90 Tab 0 Multi Vitamin Daily Oral Tablet Take by mouth . 1 daily Vitamin C 250 MG Oral Tablet (Ascorbic Acid) Take 1 Tablet by mouth in the morning. 2 to 3 tabs daily . Spiriva Respimat 2.5 MCG/ACT Inhalation Aerosol Solution (Tiotropium [place] Monohydrate) Inhale bymouth 2 Puffs in the [...] three times a day 270 Tablet 3 metFORMIN HCl ER 500 MG Oral Tablet Extended Release 24 Hour (Glucophage XR) take 2 tablets by mouth ONCE daily 180 Tablet 1 Empagliflozin 25 MG Oral Tablet (Jardiance) take 1 tablet by mouth once daily 90 Tablet 1 Montelukast Sodium 10 MG Oral [...] by mouth once daily 90 Capsule 1 Trulicity 1.5 MG/0.5ML Subcutaneous Solution Pen-injector Inject 1.5 mg under the skin once a week. Lidocaine 4 % External Patch (Aspercreme) Place 1 Patch topically on the skin daily. (Patient not taking: Reported on 04/01/2023) Current Facility-Administered Medications Medication Dose Route Frequency Provider Last Rate Last Admin albuterol sulfate (PROVENTIL) (2.5 MG/3ML) 0.083% inhalation solution 2.5 mg 2.5 mg Nebulizer Q4H PRN Louise CorbettJERONIMO 2.5 mg at 01/11/20 0950 Social Hx: Never smoker Denies vaping Occupation - disabled He lives in an apartment, flight of steps to the mailbox. Family History Problem Relation Age of Onset No Past Hx Mother Murdered Endocrine Disorder Father Hyperlipidemia Heart Disorder Grandmother (Paternal) Heart Disorder Grandfather (Paternal) Diabetes Grandfather (Paternal) Heart Disorder Aunt (Unspecified) Cancer Aunt (Unspecified) Cancer Uncle (Unspecified) Other (sarcoid) Uncle (Unspecified) maternal uncle ROS: Constitutional: no fever, chills, night sweats or weight loss. Eyes: no changes in vision or diplopia. (+) occasional floaters ENT: no change in hearing, no headaches, no thrush. (+) occasional sinus trouble Resp: see HPI. CVS: no chest pain, palpitation or syncope. GI: no nausea, vomiting or diarrhea. : no dysuria, urgency or frequency. Skin: no new rash or bruises. Psych: denies excessive anxiety, sadness. Endocrine: Denies thyroid (+) DM Rheum: no raynaud's or dry eyes (+) dry mouth Musculoskeletal: (+) joint pain Sleep: (+) ANGELES on PAP Physical Exam: BP 110/62 | Pulse 74 | Resp 15 | Wt 103 kg (227 lb) | SpO2 93% Comment: 4 LNC | BMI 32.57 kg/m | BSA 2.26 m General: 52 year old male, NAD, ambulating independently, on supplemental oxygen, alert oriented x 3 Head and Neck: atraumatic, normocephalic, neck supple, trachea midline. Eye: no pallor or icterus. ENT: no external otitis or rhinits, oral mucosa was moist, no thrush, Mallampati score III/IV. Lymphatics: no submandibular, cervical or supraclavicular lymphadenopathy noted. Resp: Equal and bilateral breath sounds, lungs clear to auscultation, no wheezing, rhonchi or crackles Card: Regular rate and rhythm, s1s2, (+) P2 Skin: no rash or ecchymosis. Neuro: no gross motor deficits, normal gait Extremities: WILSON, No LE edema. No clubbing Diagnostics BNP 05/18/19 44 08/30/18 40 10/20/17 63 05/19/17 213 12/24/16 113 07/09/16 20 06/10/16 16 09/25/15 86 PFTs Date FVC FEV1 index TLC DLCO 08/13/22 2.33 (47%) 1.24 (32%) 53 16.35 (45%) 09/14/21 2.08 (41%) 1.10 (28%) 53 16.78 (46%) 07/18/20 2.42 (48%) 1.14 (29%) 47 02/28/19 2.18 (43%) 1.10 (28%) 51 14.94 (40%) 09/08/18 2.56 (50%) 1.23 (31%) 48 20.19 (55%) 08/16/17 2.32 (44%) 1.25 (30%) 54 26.89 (71%) 05/20/17 2.08 (38%) 1.14 (27%) 55 16.87 (43%) 06/23/16 2.87 (54%) 1.54 (37%) 54 4.88 (68%) 24.03 (62%) 09/30/15 1.84 (35%) 0.93 (22%) 51 4.31 (61%) 17.84 (46%) 6 Minute walk test Date Oxygen SpO2 Pre SpO2 post Marty Pre Marty Post Total distance 03/2723 4 LPM pul 93% 86% 0 4 250 meters 08/13/22 4 LPM 96% 88% 0.5 3.5 240 meters 04/09/22 4 LPM 97% 88% 0 3 162 meters 07/18/20 4 LPM 95% 89% 1 4 240 meters 05/08/19 4 LPM 98% 92% 0 5.5 411 meters 06/08/18 5 LPM pul 97% 91% 0.5 3 252 meters 08/16/17 5 LPM 96% 87% 1 4 201 05/20/17 2 LPM 94% 89% 0.5 4 45 meters 12/03/16 3 LPM 96% 89% 3 4.5 206 06/23/16 3 LPM 93% 90% 0.5 5 274 meters Exercise oximetry 04/01/23 SpO2 95% at Rest on 5 LPM (pulsed), after ambulation of 3 minutes SpO2 90% on 5 LPM pulsed. Total distance ambulated 150 meters. Ambulatory Oximetry on 05/20/17, 3 LPM showed SpO2 88% at 2 1.5 minutes of ambulation, on 4 LPM SpO2 88% at 2 minutes of ambulation. He was then walked on 6 LPM with oximizer, SpO2 at rest 98% and end of 3 minutes of ambulation SpO2 93%. Total distance ambulated [address] chest 03/05/19 IMPRESSION 1. Redemonstration of fibrotic changes in the lungs compatible with known sarcoidosis. Interval improvement in previously seen perilymphatic nodules. A few scattered discrete nodules are stable to improved. 2. Calcific mediastinal hilar nodes compatible with sarcoidosis. 3. Loculated pleural effusions, right more than left. Higher than fluid attenuation in the loculated right pleural fluid may be related to complex fluid or hematoma. 4. Hepatic steatosis. 5. Additional findings as described above. CT chest 12/13/16 IMPRESSION 1. Findings of sarcoidosis again demonstrated, with areas of scarring/fibrosis, predominantly in the upper lobes. 2. Small bilateral pleural effusions. 3. Right rib fractures, as described. CT chest 09/02/15 IMPRESSION Worsening parenchymal disease with areas of increasing consolidation. This may represent overlying infectious process. Bilateral pulmonary nodules are consistent with the provided history of sarcoidosis. Moderate left pleural effusion, slightly improved. Increasing right pleural effusion. Echo 07/29/2022 Interpretation Summary The qualitative LV ejection fraction is 55-59% (normal). The right ventricular cavity is severely dilated. The right ventricular systolic function is moderately reduced . The septal motion is abnormal consistent with right ventricular pressure and volume overload. The right atrium is moderately enlarged. Mild tricuspid regurgitation is present. The estimated pulmonary artery systolic pressure is 53mm Hg. Compared to prior study of 09/03/2021, there is no significant change. Echo 09/03/2021 Interpretation Summary The examination is adequate to evaluate the referral indication. The qualitative LV ejection fraction is 55-59% (normal). The septal motion is abnormal consistent with right ventricular pressure and volume overload. The regional left ventricular wall motion is otherwise normal. The right ventricular cavity is moderately dilated. The right ventricular systolic function is moderately reduced . Mild tricuspid regurgitation is present. Normal IVC size and collapsability with sniff indicates a normal right atrial pressure of 3 mmHg. Moderate pulmonary hypertension is present. The estimated pulmonary artery systolic pressure is 50mm Hg. Compared to prior study of 10/23/2020, there is no significant change. Echo 07/28/2020 Interpretation Summary The examination is adequate to evaluate the referral indication. The left ventricular cavity size is normal. The LV wall thickness is normal. The septal motion is abnormal consistent with right ventricular pressure and volume overload. The regional left ventricular wall motion is otherwise normal. The qualitative LV ejection fraction is 55-59% (normal). The right ventricular cavity is moderately dilated. The right ventricular systolic function is moderately reduced . There is no significant valvular disease Mild tricuspid regurgitation is present. Normal IVC size and collapsability with sniff indicates a normal right atrial pressure of 3 mmHg. There is moderate to severe pulmonary hypertension The estimated pulmonary artery systolic pressure is 50-60mm Hg. Echo 08/28/18 The examination is adequate to evaluate the referral indication. The left ventricular cavity size is normal. The LV wall thickness is mildly increased (concentric). The septal motion is abnormal consistent with right ventricular volume overload. The regional left ventricular wall motion is otherwise normal. The right ventricular cavity is mildly dilated. The right ventricular systolic function is mildly reduced . Trivial tricuspid regurgitation is present. The signal is inadequate to calculate pulmonary artery systolic pressure. There is no significant valvular disease Echo 09/24/16 Interpretation Summary The examination is limited quality for evaluation of the referral indication. Consider cardiac MRI,or right heart cath, or an echo at [facility]. The qualitative LV ejection fraction is 65-69% (normal). The septal motion is abnormal consistent with right ventricular pressure and volume overload. The right ventricular cavity is mildly dilated. The right ventricular systolic function is mildly reduced . No pericardial effusion is noted. The IVC is not well visualized so right atrial pressure cannot be estimated. The tricuspid regurgitation spectral Doppler examination is inadequate to calculate the right ventricular systolic pressure. No significant valvular disease is present. No defiinte change from prior exam. Echocardiogram on 01/17/16 ([facility]) showed an EF of 60-65%, RV mod dilated, Taspse >1.5 (normal), unable to give PASP RHC 06/08/13 PA 69/22 mPAP 46 Wedge 26 CO - TD 9.67 Trish's 8.45 RHC 07/19/16 PA 48/21 Mean 34 Wedge 22 CO TD- 7.66 Ficks - 7.8 PVR 2.09 Wood units Assessment: 1. Pulmonary Hypertension, Group 2, 3, 5, Who functional class II, doing well on current regimen - Current therapy - Past therapy 2. Pulmonary Sarcoidosis, previously on MTX 3. Hx of Blastomycosis, s/p Trach 4. ANGELES on BiPAP 5. Chronic Respiratory failure on oxygen 6. Obesity, Body mass index is 32.57 kg/m. He is losing weight Plan: 1. Continue Spiriva daily and Breo daily 2. May continue to use albuterol Q 4 hours as needed for coughing, wheezing or SOB 3. Encouraged to use oxygen at 4-5 LPM to maintain SpO2 > 89% 4. Will updated Echo, due August 2023 5. 6 MWT at next visit 6. He reports PCP appointment on Tuesday, will get his Influenza vaccine then 7. Follow up in 6 months in the Pulmonary Hypertension clinic, with Available provider Instructed to call with any questions or problems. I spent a total of 45 minutes on the date of service in preparation, delivery, and documentation ofthe care provided to Guero Pugh excluding any time spent in the performance of separately billed services. JERONIMO Vu Pulmonary Medicine [facility] documented in this encounter Plan of Treatment Upcoming Encounters Date Type Department Care Team (Late st Contact Info) Description 04/04/2023 2:00 PM EDT [facility] [address] [facility] [id number] Andrzej Downing MD [address] [facility] [place] [address] 08/31/2023 2:00 PM EDT Cardiac Studies Cardiac Studies, [facility] [address] [facility] [place] [address] 09/05/2023 1:00 PM EDT Office Visit Cardiology, [facility] [address] [place] [address] Tresa Hammonds CRNP [address] [place] [address] 11/16/2023 11:30 AM EDT Imaging Radiology, [address] [place] [address] 11/16/2023 1:00 PM EDT Office Visit Rheumatology [address] [place] [address] Faustino Delgado MD [address] [place] [address] [place] [address] 02/15/2024 2:30 PM EDT Nutrition Services Nutrition & Weight Management, [facility] [address] [place] [address] Louise Zarate RDN [address] [place] [id number] Scheduled Orders Name Type Priority Associated Diagnoses Orde r Schedule ECHO, COMPLETE (2D), TRANS-THORACIC Echocardiology Routine Chronic respiratory failure with hypoxia and hypercapnia (HCC) Chronic right-sided heart failure (HCC) Sarcoidosis of lung (HCC) Severe obstructive sleep apnea Pulmonary hypertension (HCC) Expected: 08/31/2023, Expires: 05/02/2025 PULMONARY STRESS TESTING Procedures Routine Chronic respiratory failure with hypoxia and hypercapnia (HCC) Chronic right-sided heart failure (HCC) Sarcoidosis of lung (HCC) Severe obstructive sleep apnea Pulmonary hypertension (HCC) Ordered: 04/01/2023 Health Maintenance Due Date Last Done Comments [...] 06/02/2018 Diabetic Foot Exam 01/02/2022 01/02/2021, 11/08/2018 DIABETES-EYE EXAM 09/24/2022 09/24/2021, , 04/06/2019, Additional history exists COVID-19 Vaccine ( season) 2023 08/08/2020, 07/11/2020 Influenza Vaccine (FLU shot) (#1) 2023 03/12/2022, 02/06/2021, 03/05/2020, Additional history exists DXA Scan 02/17/2023 02/17/2021, 0810/2018, 01/05/2017, Additional history exists HbA1c 03/25/2023 09/23/2022, 03/07, 09/03/2021, Additional history exists Albumin/Creatinine Ratio 03/30/2023 03/30/2022, 05/07 B-12 09/24/2023 09/23/2022, 0907/2020, 09/02/2020, Additional history exists GFR 09/24/2023 09/23/2022, 03/07, 09/03/2021, Additional history exists Depression Screening 10/01/2023 09/30/2022 O2 ASSESSMENT COMPLETED IN PAST YEAR FOR COPD 10/01/2023 09/30/2022 Lipid Panel 03/30/2027 03/30/2022, 08/06, 07/21/2020, Additional history exists DTaP,Tdap,and Td Vaccines (3 - Td or Tdap) 09/18/2028 09/18/2018, 09/11/2008 Pneumococcal Vaccine: Pediatrics (0 to 5 Years) and At-Risk Patients (6 to 64 Years) (3 - PPSV23 or PCV20) 2034 05/20/2017, 04/19/2014, 04/14/2009 VITAMIN D LEVEL ONCE IN A LIFETIME-USE SMARTSET# [id number] Completed 09/23/2022, 09/03/2021, 08/30/2018, Additional history exists GARDASIL-HPV IMMUNIZATION SERIES Aged Out No longer eligible based on patient's age to complete this topic MENINGOCOCCAL (MENACTRA/MENVEO) Aged Out No longer eligible based on patient's age to complete this topic documented as of this encounter Medical Devices Not on filedocumented as of this encounter Visit Diagnoses Diagnosis Chronic respiratory failure with hypoxia and hypercapnia (HCC)- Primary Chronic right-sided heart failure (HCC) Congestive heart failure, unspecified Sarcoidosis of lung (HCC) Sarcoidosis Severe obstructive sleep apnea Obstructive sleep apnea (adult) (pediatric) Pulmonary hypertension (HCC) Other chronic pulmonary heart diseases documented in this encounter Advance Directives Latest [...] the patient have Health Care Power of Manufacturer'S Representative? No Care Teams Therapeutic Consultant Relationship Specialty Start Date End Date Andrzej Downing MD [address] [place] [address] PCP - General Family Medicine 03/20/19 documented as of this encounter"
--- OUTSIDE RECORDS SUMMARY | 2023-08-31 04:24 | External Medical Summary | Summary of Care ---
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 Name Role Phone Tj Anderson MD Primary Care Provider +1- [phone] Reason for Visit * Reason Comments eRx-Medication Refill Encounter Details Date Type Department Care Team Description 03/19/2023 Refill Formerly [facility] [address] [place] [address] Tj Anderson MD [address] [place] [address] Allergies Active Allergy Reactions Severity Noted Date Comments Doxycycline Other (Please comment) Low 07/25/2013 Headache documented as of this encounter (statuses as of 03/21/2023) Medications Medication Sig Dispensed Refills Start Date [...] 11 03/02/20 18 Active ONETOUCH ULTRASOFT LANCETS [facility] Use as directed 4 times a day as needed for Hyperglycemia (high sugar) or Hypoglycemia (low sugar). Use up to four times a day as directed 1 Box Dosing Unit 11 03/02/20 18 Active DIURETIC TITRATION PLAN If no improvement on day 3, contact heart failure managing provider or [facility] Kerrick Kleaner Operator. 1 Each 0 05/12/20 18 Active Fluticasone Propionate 50 MCG/ACT Nasal Suspension (FLONASE)Indication s:Nasal polyp Administer 2 Sprays into each nostril daily. Use in morning 48 g 3 05/27/20 20 Active Additional Information Patient taking differently:2 [place] Each Nostril Daily(AM),Use in morning as needed, Indications: allergies, Reported on 04/22/2022 Azelastine HCl 0.1 % Nasal SolutionIndications :Seasonal allergic rhinitis due to pollen Administer 1 [place] into nostril 2 times a day. 30 mL 12 09/13/19 21 Active Additional Information Patient taking differently:1 [place] NasalBID PRN, Reported on 04/22/2022 Cromolyn Sodium [...] 0 09/13/19 21 Active Additional Information Patient taking differently:5 mg OralPRN, Indications: allergies, Reported on 08/13/2022 Multi Vitamin Daily Oral Tablet Take by mouth . 1 daily 0 Active Vitamin C 250 MG Oral Tablet (Ascorbic Acid) Take 1 Tablet by mouth in the morning. 2 to 3 tabs daily . 0 Active Spiriva Respimat 2.5 MCG/ACT Inhalation Aerosol Solution (Tiotropium [place] Monohydrate)Indicat ions:breathing Inhale by mouth 2 Puffs [...] day 270 Tablet 3 10/04/19 23 Active metFORMIN HCl ER 500 MG Oral Tablet Extended Release 24 Hour (Glucophage XR) take 2 tablets by mouth ONCE daily 180 Tablet 1 10/07/19 23 Active Empagliflozin 25 MG Oral Tablet (Jardiance)Indicati ons:Type 2 diabetes mellitus with hemoglobin A1c goal of less than 7.0% ([facility]) take 1 tablet by mouth once daily 90 Tablet 1 10/07/19 23 Active Montelukast Sodium 10 MG Oral Tablet (Singulair)Indicati ons:Increased nasal secretion take 1 tablet by mouth at bedtime 90 Tablet 3 11/04/19 23 Active Ozempic (1 MG/DOSE) 4 MG/3ML Subcutaneous Solution Pen-injector (Semaglutide (1 MG/DOSE))Indication s:Type 2 diabetes mellitus with hemoglobin A1c goal of less than 7.0% ([facility]) INJECT 1 MG UNDER THE [...] daily 90 Capsule 1 03/21/20 23 Active Tamsulosin HCl 0.4 MG Oral Capsule (Flomax) take 1 capsule by mouth once daily 90 Capsule 1 09/23/19 23 023 Discontinued Hospital, Clinic, or Other Facility Administered Medication Ordered Dose Route Frequency Start Date End Date Status albuterol sulfate (PROVENTIL) (2.5 MG/3ML) 0.083% inhalation solution 2.5 mgIndications:Pulmonary hypertension (HCC),Chronic right-sided heart failure (HCC),Sarcoidosis,Oxygen dependent 2.5 mg NEBULIZER Q4H PRN 06/03/2017 Active documented as of this encounter (statuses as of 03/21/2023) Active Problems Problem Noted Date Chronic obstructive pulmonary disease Obesity hypoventilation syndrome 023 Hypertensive heart disease w ith chronic right-sided congestive heart failure 09/30/2022 Pulmonary hypertension due to left heart disease 09/30/2022 Pulmonary hypertension due to lung disea ses and hypoxia 09/30/2022 Chronic respiratory failure with hypoxia and hypercapnia 02/24/2021 History of 2019 novel coronavirus diseas e (COVID-19) 10/27/2019 Gastroesophageal reflux disease without esophagitis 08/03/2019 Chronic cor pulmonale 08/03/2019 Essential hypertension with goal blood p ressure less than 130/80 08/03/2019 Oxygen dependent 03/19/2018 Depression, major, recurrent, in remissi on 03/19/2018 Pulmonary hypertension associated with s arcoidosis 03/14/2018 Type 2 diabetes mellitus with hemoglobin A1c goal of less than 7.0% 02/24/2018 History of Clostridium difficile colitis 07/07/2017 Sarcoidosis of lung 05/17/2017 Overview: MXT started August 2011, max 17.5 mg weekly Calculated total dose MTX: Jun 20, 2014 - 2,483 mg Congestive heart failure with LV diastol ic dysfunction, NYHA class 3 01/16/2016 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 Chronic right-sided heart failure 2012 Severe obstructive sleep apnea 2 Overview: 09/04/12 BIPAP 15/9, 6 LPM -- low 84%, mean 92.7%, <89% 5:12 mins, CIRILO 5.1 09/01/12 -- BIPAP auto 9-15 cwp 12/10/11 PSG -- AHI 91.5, significant hypoxemia [facility] documented as of this encounter (statuses as of 03/21/2023) Resolved Problems Problem Noted Date Resolved Date Polyneuropathy in other diseases classified else where 08/03/2019 07/07/2020 Class 2 severe obesity due t o excess calories with serious comorbidity and body mass index (BMI) of 39.0 to 39.9 in adult 08/03/2019 09/28/2021 Current chronic use of systemic steroids 019 09/28/2021 Morbid obesity with body mas s index (BMI) of 40.0 to 44.9 in adult 06/29/2018 08/03/2019 Sarcoidosis, stage 2 03/19/2018 07/02/2018 BMI 40.0-44.9, adult 03/19/2018 07/20/2018 Chronic hypoxemic respiratory failure 03/14/2018 07/02/2018 Obesity, morbid (more than 1 00 lbs over ideal weight or BMI > 40) 01/05/2017 04/21/2018 HTN, goal below 130/80 08/19/2016 7 Body mass index (BMI) of 50-59.9 in adult 201603/10/2017 Overview: Per Obesity protocol #1 Encounter for long-term (current) use of medicat ions 04/07/2016 07/02/2018 Essential hypertension with goal blood pressure less than 130/80 02/26/2016 01/05/2017 Pneumothorax 01/16/2016 03/19/2018 Pulmonary blastomycosis 08/14/2014 03/14/20 18 C. difficile colitis 08/13/2014 07/07/2017 Respiratory failure, acute and chronic 5 05/17/2017 Paranasal sinus disease 07/19/2013 07/02/19 19 [employer] Other*[id number] 201307/13/2016 Overview: Study Title: Genomic Markers for Patients with Cardiovascular Disease Project # [id number] Kitchen Food Assembler: Ariana Brady MD [phone] HTN, goal below 130/80 06/03/2013 6 Cholecystolithiasis 09/20/2012 07/02/2018 Obesity, Class III, BMI 40-49.9 (morbid obesity) 12/23/2011 01/05/2017 [facility] current use of systemic steroids 11/0407/02/2018 Immunocompromised, acquired 08/19/201109/05 Asthma with severity to be determined 12/01/2009 07/22/2011 Overview: Per Asthma Taxonomy ICD-10 update of inactive term Obesity, Class II, BMI 35-39.9, isolated (see ac tual BMI) 11/17/2009 12/05/2016 Overview: Per Obesity Protocol, #19 SARCOIDOSIS with severe obstructive lung ds 12/200907/05/2020 Overview: duplicate ADVANCE DIRECTIVE INFORMATION 04/01/2009 Overview: No, Advance Directive brochure given to patient. Family history of diabetes mellitus 10/21/2008 11/05/2016 Family history of cardiovascular disease 009 11/05/2016 Asthma, allergic 10/21/2008 12/01/2009 Acute bronchitis, antibiotics not indicated 07/0808/01/2008 Overview: Resolved per Benign Acute Dxs Protocol #3 ACUTE SINUSITIS NOS 07/27/2005 07/25/2008 Overview: Resolved per Benign Acute Dxs Protocol #3 ACUTE URI NOS 07/27/2005 07/25/2008 Overview: Resolved per Benign Acute Dxs Protocol #3 Cough 07/27/2005 12/24/2009 Major depressive disorder 03/22/20002017 Overview: ICD-10 update of inactive term Acute on chronic respiratory failure with hypoxi a 05/27/2020 COVID-19 01/06/2020 Pulmonary hypertension 0 documented as of this encounter (statuses as of 03/21/2023) Immunizations Name Administration Dates Next Due COVID-19 [...] e alcohol) 1-2 every couple of weeks Food Insecurity Answer Date Recorded Within the past 12 months, y ou worried that your food would run out before you got money to buy more. Never true 09/30/2022 Within the past 12 months, t he food you bought just didn't last and you didn't have money to get more. Never true 09/30/2022 Sex Assigned at Date Recorded Not on file Job Start Date Occupation [...] encounter Miscellaneous Notes * Telephone Encounter - Yoav Weinberg RPh - 03/21/2023 8:44 AM EDTSigned Prescriptions: Disp Refills Tamsulosin HCl 0.4 MG Oral Capsule (Flomax)90 Cap*1 Sig: take 1 capsule by mouth once dailyAuthorizing Provider: TJ ANDERSON User: YOAV VERNON- documented in this encounter Plan of Treatment Upcoming Encounters Date Type Specialty Care Team Description 04/01/2023 PulmDiagnostic Pulmonary Function 3, [address] [place] [address] 04/01/2023 Office Visit Pulmonary Jose Dsouza MD [address] [place] [address] 04/04/2023 Office Visit Family Medicine Tj Anderson MD [address] [place] [address] 09/05/2023 Office Visit Cardiology Tresa Hammonds CRNP [address] [place] [address] 11/16/2023 Imaging Radiology 11/16/2023 Office Visit Rheumatology Faustino Delgado MD [facility] [place] [address] 02/15/2024 Nutrition Services Gastroenterology Louise Zarate RDN [address] [place] [address] Health Maintenance Due Date Last Done Comments [...] , 04/06/2019, Additional history exists COVID-19 Vaccine (3 - 24 season) 2023 08/08/2020, 07/11/2020 Influenza Vaccine (FLU shot) (#1) 2023 03/12/2022, 02/06/2021, 03/05/2020, Additional history exists DXA Scan 02/17/2023 02/17/2021, 10/2018, 01/05/2017, Additional [...] D LEVEL ONCE IN A LIFETIME-USE SMARTSET# [id number] Completed 09/23/2022, 09/03/2021, 08/30/2018, Additional history exists [...] the patient have Health Care Power of Porcelain Technician? No Care Teams Metal Casting Trades Worker Relationship Specialty Start Date End Date Tj Anderson MD [address], [place] [id number] PCP - General Family Medicine 03/20/19 documented as of this encounter
--- OUTSIDE RECORDS SUMMARY | 2023-08-31 04:24 | External Medical Summary | Summary of Care ---
Author Name Unknown Organization [facility] Address [address] [place] [address] Phone [phone] Care Team Providers Care Saw Man Name Role Phone Andrzej Downing MD Primary Care Provider +1- [phone] Encounter Details Date Type Department Care Team (Late st Contact Info) Description 04/14/2023 Handcrew ForemanCnc Laser OperatorMelissa [place]ille [address] [place] [address] Payal Phillips, RN [address] [place], [place] [id number] Chronic obstructive pulmonary disease, unspecified COPD type (HCC)* Allergies Active Allergy Reactions Criticality Noted Date Comments Doxycycline Other (Please comment) Low 07/25/2013 Headache documented as of this encounter (statuses as of 04/14/2023) Medications Medication Sig Dispensed Refills Start Date [...] failure managing provider or [facility] Handcrew Foreman. 1 Each 0 05/12/2018 Active Fluticasone Propionate 50 MCG/ACT Nasal Suspension (FLONASE)Indications :Nasal polyp Administer 2 Sprays into each nostril daily. Use in morning 48 g 3 05/27/2020 Active Additional Information Patient taking differently:2 [place] Each Nostril Daily(AM),Use in morning as needed, Indications: allergies, Reported on 04/22/2022 Azelastine HCl 0.1 % Nasal SolutionIndications: Seasonal allergic rhinitis due to pollen Administer 1 [place] into nostril 2 times a day. 30 mL 12 09/12/2020 Active Additional Information Patient taking differently:1 [place] NasalBID PRN, Reported on 04/22/2022 Cromolyn Sodium [...] Respimat 2.5 MCG/ACT Inhalation Aerosol Solution (Tiotropium [place] Monohydrate)Indicati ons:breathing Inhale by mouth 2 Puffs [...] obstructive sleep apnea,Pulmonary hypertension (HCC),Sarcoidosis of lung ([facility]) 2 LPM during rest, 3 LPM while ambulating, 4 LPM through Trilogy during sleep 1 Each 0 07/21/2022 Active Torsemide 20 MG Oral Tablet (Demadex)Indications :Chronic right-sided heart failure (HCC),Congestive heart failure with LV diastolic dysfunction, NYHA class 3 ([facility]) take 4 tablets by mouth twice a day 240 Tablet 11 07/27/2022 Active Breo Ellipta 200-25 MCG/ACT Inhalation Aerosol Powder Breath Activated (fluticasone furoate-vilanterol) inhale 1 puff by mouth and INTO THE LUNGS every morning 60 Blister Dosing Unit 3 07/26/2022 Active Losartan Potassium 25 MG Oral Tablet (Cozaar)Indications: Chronic right-sided heart failure ([facility]),Essential hypertension with goal blood pressure [...] hemoglobin A1c goal of less than 7.0% ([facility]) INJECT 1 MG UNDER THE [...] 4 weeks 15 g 1 04/04/2023 Active Cephalexin 500 MG Oral Capsule (Keflex)Indications: Cellulitis of umbilicus Take 1 Capsule by mouth in the morning and 1 Capsule before bedtime. Do all this for 10 days. 20 Capsule 0 04/04/2023 04/14/20 23 Active metFORMIN HCl ER 500 MG Oral Tablet Extended Release 24 Hour (Glucophage XR) take 2 tablets by mouth ONCE daily 180 Tablet 1 04/06/2023 Active Empagliflozin 25 MG Oral Tablet (Jardiance)Indicatio ns:Type 2 diabetes mellitus with hemoglobin A1c goal of less than 7.0% (HCC) take 1 tablet by mouth once daily 90 Tablet 1 04/06/2023 Active Hospital, Clinic, or Other Facility Administered Medication Ordered Dose Route Frequency Start Date End Date Status albuterol sulfate (PROVENTIL) (2.5 MG/3ML) 0.083% inhalation solution 2.5 mgIndications:Pulmonary hypertension (HCC),Chronic right-sided heart failure (HCC),Sarcoidosis,Oxygen dependent 2.5 mg NEBULIZER Q4H PRN 06/03/2017 Active documented as of this encounter (statuses as of 04/14/2023) Active Problems Problem Noted Date Diagnosed Date [...] as of this encounter (statuses as of 04/14/2023) Resolved Problems Problem Noted Date Diagnosed Date [...] Paranasal sinus disease 07/19/201306/07 [employer] Other*[id number] 06/08/2013 07/13/2016 Overview: Study Title: Genomic Markers for Patients with Cardiovascular Disease Project # [id number] Food Service: Ariana Brady MD [phone] HTN, goal below 130/80 06/03/201302/25 Cholecystolithiasis 09/20/2012 07/02/19 19 Obesity, Class III, BMI 40-4 9.9 (morbid obesity) 12/23/2011 01/05/2017 [facility] current use of systemic steroids 11/05/2011 07/02/2018 [...] as of this encounter (statuses as of 04/14/2023) Immunizations Name Administration Dates Next Due COVID-19 [...] as of this encounter Progress Notes * Payal Phillips RN - 04/14/2023 3:40 PM EST Handcrew Foreman Progress Note: Date: 04/14/23 Assigned Patient Tier: 4 Connected with patient via phone. Verified patient name/. Advised patient that call is being recorded for quality and training purposes. Assessment: Pt. noted the following: patient has some chronic SOB with exertion, no cough Denies angina, has some swelling to his ankles at time, no worse than what it has been AMC weights have been stable at 223 lbs Patient using O2 at 4-5 liters with activity, 2 liters at rest, 6 liters at night. Has a good appetite, denies bowel/bladder complaints Has some chronic pain to his joints, currently controlled No skin issues, sleeping okay at night Blood sugars running below 120, last A1C September, was 5.4, patient says he had an eye exam in Spring of this year Patient continues to live alone in an apartment Patient independent with ambulation & ADL's, still drives, manages his own medications Will send information on Advance Directives per his request Confirmed upcoming follow up appointments Did you receive an alert for an annual wellness visit? No Is this call for a hospital, long term or rehab facility discharge to home? No Medication Reconciliation: Medication Reconciliation completed: no Review of Current goals: Discussed the following patient-centered CM goals with the patient during this discussion: -HEART FAILURE: Achieve successful management of heart failure. -Status: On Track weight has been stable, encouraged patient to call CM with increased SOB, LE/abdominal edema, 3 lb weight gain in 24 hours. -COPD: Achieve successful management of COPD -Status: On Track patient has some SOB with exertion, on O2 at 2-6 liters, followed closely by pulmonary. -Diabetes: Patient will successfully manage their diabetes -Status: On Track blood sugars stable, last A1C September of 2022 was 5.4. COPD Patient: YES Oxygen: 2-6 LPM via N/C, Breathing: Breathing at Baseline CHF Patient: YES Scale: YES, Current Weight: 223 lbs, Reinforced fluid restriction and low sodium diet. , Swelling: has some swelling to his ankles at times CM Plan: Reviewed 3 Red Flags with patient. Advised to call CM with any of the following: Red Flag 1: increased SOB, productive cough, Red Flag 2: fever chills, or Red Flag 3: increased LE/abd edema, 3 lb weight gain in 24 hours Remote Patient Monitoring: Device Currently in place: AMC Scale. Reviewed readings. Interventions, if needed: none needed at this time Plan for Future Contacts: Plan to follow up 10-12 weeks to check progress on the following goals/needs as above. Planned contacts from the following parties will occur this week: N/A as additional contacts per workflow. Advancement/Closure Plan: Keep patient at current Tier with reassessment per workflow. Patient provided CM contact information and encouraged to call with any changes in condition. SNP Member? No PCP Notified of enrollment in CM/HM program: Yes Is Provider in agreement with POC? Yes Payal Phillips, LYNNE Outpatient Case Management documented in this encounter Plan of Treatment Upcoming Encounters Date Type Department Care Team (Late st Contact Info) Description 08/31/2023 2:00 PM EDT Cardiac Studies Cardiac Studies, [facility] [address] [facility] [place] [address] 09/05/2023 1:00 PM EDT Office Visit Cardiology, [facility] [address] [place] [address] Tresa Hammonds CRNP [address] [place] [address] 10/06/2023 2:20 PM EDT Office Visit [facility] [address] [place] [phone] Andrzej Downing MD [address] [place] [address] 11/16/2023 11:30 AM EDT Imaging Radiology, [address] [place] [address] 11/16/2023 1:00 PM EDT Office Visit Rheumatology [address] [place] [address] Faustino Delgado MD [address] [place] [address] [place] [address] 02/15/2024 2:30 PM EDT Nutrition Services Nutrition & Weight Management, [facility] [address] [place] [address] Louise Zarate, YARELI [address] [place] [address] Health Maintenance Due Date Last Done Comments [...] D LEVEL ONCE IN A LIFETIME-USE SMARTSET# [id number] Completed 09/23/2022, 09/03/2021, 08/30/2018, Additional history exists [...] of this encounter Visit Diagnoses Diagnosis Chronic obstructive pulmonary disease, unspecified COPD type (HCC)- Primary documented in this encounter Advance [...] the patient have Health Care Power of Job Honer? No Care Teams Saw Man Relationship Specialty Start Date End Date Andrzej Downing MD [address] [place] [address] PCP - General Family Medicine 03/20/19 documented as of this encounter
--- OUTSIDE RECORDS SUMMARY | 2023-08-31 04:24 | External Medical Summary | Summary of Care ---
Author Name Unknown Organization [facility] Address [address] [place] [address] Phone [phone] Care Team Providers Care Portal Administrator Name Role Phone Andrzej Downing MD Primary Care Provider +1- [phone] Reason for Visit * Reason Comments Pulmonary Function Test Encounter Details Date Type Department Care Team (Latest Contact Info) Description 04/01/2023 10:00 AM EDT PulmDiagnostic Pulmonary Function Lab, [place] [address] [place] [address] 3, [address] [place] [address] Pulmonary hypertension (HCC)* Allergies Active Allergy Reactions Criticality Noted [...] failure managing provider or [facility] Transportation Superintendent. 1 Each 0 05/12/2018 Active Fluticasone Propionate 50 MCG/ACT Nasal Suspension (FLONASE)Indications :Nasal polyp Administer 2 Sprays into each nostril daily. Use in morning 48 g 3 05/27/2020 Active Additional Information Patient taking differently:2 [place] Each Nostril Daily(AM),Use in morning as needed, Indications: allergies, Reported on 04/22/2022 Azelastine HCl 0.1 % Nasal SolutionIndications: Seasonal allergic rhinitis due to pollen Administer 1 [place] into nostril 2 times a day. 30 mL 12 09/12/2020 Active Additional Information Patient taking differently:1 [place] NasalBID PRN, Reported on 04/22/2022 Cromolyn Sodium [...] Respimat 2.5 MCG/ACT Inhalation Aerosol Solution (Tiotropium [place] Monohydrate)Indicati ons:breathing Inhale by mouth 2 Puffs [...] once daily 90 Capsule 1 03/21/2023 Active Hospital, Clinic, or Other Facility Administered [...] Paranasal sinus disease 07/19/201306/07 [employer] Other*[id number] 06/08/2013 07/13/2016 Overview: Study Title: [employer]omic Markers for Patients with Cardiovascular Disease Project # [id number] Rand Tacker: Ariana Brady MD [phone] HTN, goal below 130/80 06/03/201302/25 Cholecystolithiasis 09/20/2012 07/02/19 19 Obesity, Class III, BMI 40-4 9.9 (morbid obesity) 12/23/2011 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 6 minute walk performed with subsequent oxygen titration Sp02 on 4lpm via nasal cannula in conserve mode at rest 94% Sp02 on 4lpm via nasal cannula in conserve mode during exercise 86% Sp02 on 5lpm via nasal cannula in conserve mode at rest 95% Sp02 on 5lpm via nasal cannula in conserve mode during ambulation 90% documented in this encounter Plan of Treatment Upcoming Encounters Date Type Department Care Team (Late st Contact Info) Description 04/01/2023 11:30 AM EDT Office Visit Pulmonary Medicine, [address] [address] Jose Dsouza MD [address] [facility] [place] [address] Arrived 04/04/2023 2:00 PM EDT Office Visit Family [facility] [address] [place] [phone] Andrzej Downing MD [address] [place] [address] 09/05/2023 1:00 PM EDT Office Visit Cardiology, [facility] [address] [place] [address] Tresa Hammonds CRNP [address] [place] [address] 11/16/2023 11:30 AM EDT Imaging Radiology, [address] [address] 11/16/2023 1:00 PM EDT Office Visit Rheumatology [address] [address] Faustino Delgado MD [address] [place] [address] 02/15/2024 2:30 PM EDT Nutrition Services Nutrition & Weight Management, [facility] [address] [place] [address] Louise Zarate RDN [address] [facility] [place] [address] Health Maintenance Due Date Last Done Comments [...] D LEVEL ONCE IN A LIFETIME-USE SMARTSET# [id number] Completed 09/23/2022, 09/03/2021, 08/30/2018, Additional history exists GARDASIL-HPV IMMUNIZATION SERIES Aged Out No longer eligible based on patient's age to complete this topic MENINGOCOCCAL (MENACTRA/MENVEO) Aged Out No longer eligible based on patient's age to complete this topic documented as of this encounter Medical Devices Not on filedocumented as of this encounter Visit Diagnoses Diagnosis Pulmonary hypertension (HCC)- Primary Other chronic pulmonary heart diseases documented in [...] the patient have Health Care Power of Hose Sprayer? No Care Teams Portal Administrator Relationship Specialty Start Date End Date Andrzej Downing MD [address] [place] [address] PCP - General Family Medicine 03/20/19 documented as of this encounter
[2023-08-31 04:32] LABS: Hematocrit (blood only) 47.2 % (42.0-52.0); Hemoglobin 15.4 g/dl (14.0-18.0); Mean Corpuscular Hgb Conc 32.6 g/dL (32.0-36.0); Mean Platelet Volume 8.8 fL (9.4-12.4); Platelet Count 299 K/uL (130-400); RDW Coefficient of Variation 14.1 % (11.5-14.5); RDW Standard Deviation 49.1 fL (36.4-46.3); Red Blood Count 4.97 M/uL (4.70-6.10); White Blood Count 5.18 K/ul (4.8-10.8)
[2023-08-31 04:56] LABS: BUN Creatinine Ratio 16.7 (10-20); Calcium 9.5 mg/dl (8.6-10.3); Creatinine Clr Calc Pharmacy 89.7 ml/min; Est GFR (African American) 84.6 ml/min; Potassium 3.9 mmol/L (3.5-5.1)
[2023-08-31 07:27] LABS: Estimated Average Glucose 117 mg/dl; Hemoglobin A1C 5.7 % (4.5-5.6)
--- NOTE | 2023-08-31 08:48 | Pulmonary Consultation ---
Date of Consultation August 31, 2023 Assessment & Plan (1) Acute on chronic hypoxic respiratory failure: (2) Parainfluenza infection: (3) COPD exacerbation: (4) Fluid overload: (5) CHF (congestive heart failure), NYHA class III: (6) Pulmonary HTN: (7) ANGELES (obstructive sleep apnea): (8) Pulmonary sarcoidosis: Plan IMPRESSION: 52-year-old male with an extensive pulmonary history including pulmonary sarcoidosis, blastomycosis with respiratory failure requiring eventual tracheostomy and subsequent revision, COPD, chronic respiratory failure with hypoxia, and severe sleep apnea who presents in the setting of acute parainfluenza infection with associated acute on chronic hypoxic respiratory failure. RECOMMENDATIONS: 1. Acute on chronic hypoxic respiratory failure - In the setting of parainfluenza infection with associated volume overload. Chest x-ray findings concerning for pulmonary edema. Will obtain BNP. Additionally, will order chest CT to evaluate lung parenchyma in this complex pulmonary patient. Continue to provide supplemental oxygen as needed. Titrate down as tolerated. Favor aggressive diuresis. BNP 43, procalcitonin 0.07 Respiratory bio fire was negative for everything except for parainfluenza 2. Parainfluenza infection - Supportive care as you are. 3. COPD exacerbation - Likely secondary to #2. Continue with aggressive pulmonary toileting including flutter valve and incentive spirometry. Will change inhalers from Breo to nebulized budesonide and Perforomist. Will add hypertonic saline to help with airway clearing as well. He is moderately bronchospastic on exam today. Agree with continuing intravenous antibiotics for now. Hopefully able to titrate them down and then to a oral taper in the outpatient setting. 4. Volume overload - In the setting of CHF and RIGHT-sided heart failure. Echocardiogram obtained to evaluate RIGHT-sided heart function this medically complex patient. 5. Obstructive sleep apnea - Continue with home BiPAP settings as tolerated. May require increasing nocturnal oxygen in the acutely ill setting. 6. Pulmonary sarcoidosis - As previously managed in the outpatient setting at [facility]. Currently not on maintenance therapy at this point. Will defer ongoing care to them in the outpatient setting. Thank you for allowing us to participate in the care of this pleasant patient. Pulmonary medicine will continue to follow along. Supervising Physician Co-Signing Physician Notes I saw and evaluated the patient with Nathan Alexander PA-C, and agree with findings and plan as documented in the note. 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 He was sitting on a chair comfortably He stated that he is feeling better compared to when he came to the hospital. He is coughing and bringing up phlegm. Lately since late in the morning he has been feeling that the cough is difficult to bring up Denies any hemoptysis No fever at home. Did complain of some subjective chills. No headache, no blurry vision CT chest 08/31/2023 personally reviewed: Fibrotic changes appreciated in the parenchyma bilaterally upper and lower lobes, more pronounced in the upper lobes Motion degraded study Cardiomegaly Calcified mediastinal and lymph nodes Constitutional: No acute distress HEENT: EOMI, PERRLA Respiratory system: Decreased air entry bilaterally, positive expiratory wheeze bilaterally, no rhonchi, positive crackles bilaterally CVS: S1-S2 positive, no murmurs or gallops, accentuated P2 Abdomen: Soft, nontender, nondistended, positive bowel sounds x4 Extremities: +2 pulses bilaterally radialis/ dorsalis pedis, no cyanosis, minimal pitting edema bilateral lower extremity Neuro: Awake alert oriented x3 Psych: Normal mood and affect G/U: No [place] Plan: Patient is likely into acute COPD exacerbation from parainfluenza Would recommend to continue with budesonide and formoterol nebulized along with Incruse. Continue with Solu-Medrol 40 mg every 8. Will try to see if they are able to go down to every 12 tomorrow. Given the complaint of thick secretions, continue with hypertonic saline nebulized along with flutter valve and Mucinex Given the patient has chronic right-sided heart failure, would recommend to continue with diuretics to keep the patient negative balance Patient has chronic bilateral pleural effusion which has not changed in size for more than 2 years. No need for any intervention For pulmonary sarcoidosis he has been off of any medication for approximately a year. Used to be on methotrexate and prednisone in the past. Continue with diuretics to keep the patient negative balance Keep O2 saturation between 90-92% given the history of pulmonary hypertension Continue with BiPAP nightly and as needed shortness of breath Please note the above document was generated using voice recognition software. It may contain grammatical, syntax or spelling errors.Any formal questions or concerns about the content, text or information contained within the body of this dictation should be directly addressed to the provider for clarification. History of Present Illness Reason for Consultation: acute on chronic resp 2/2 URI, COPD, lung sarco Requesting Physician: Sonam Delaney PA-C Attending Physician: Lee Ann Locke MD History of Present Illness Patient is a 52-year-old male with a significant past medical history of COPD, sarcoidosis previously managed on prednisone and methotrexate, chronic respiratory failure on baseline supplemental oxygen of 3 to 4 L, severe obstructive sleep apnea on home BiPAP settings, pulmonary hypertension, acute respiratory failure in the setting of blastomycosis requiring tracheostomy placement and lengthy recovery, type 2 diabetes, hypertension, depression, and history of C. difficile who presented to the emergency department with symptoms of generalized weakness, fatigue, and worsening cough and shortness of breath over the last 4 to 5 days. He states that he initially noticed the fatigue with progressively worsening dyspnea and increasing oxygen requirements. He has noticed a productive cough. No chest pain or palpitations. No hemoptysis. He reports no peripheral swelling or decreased urinary output. He continues to complain of a productive cough today as well as generalized fatigue. Allergies Allergy/AdvReac Type Severity Reaction Status Date / Time doxycycline AdvReac Severe Vomiting Verified 03/02/22 19:11 Home Medications Medication Instructions Recorded Confirmed Type aspirin 81 mg chewable tablet 81 mg PO DAILY 10/08/19 08/30/23 History (Claire Chewable Low Dose Aspirin) citalopram 20 mg tablet 20 mg PO DAILY 10/08/19 08/30/23 History digoxin 125 mcg (0.125 mg) tablet 125 mcg PO DAILY 10/08/19 08/30/23 History (Digitek) empagliflozin 25 mg tablet 25 mg PO DAILY 10/08/19 08/30/23 History (Jardiance) ferrous sulfate 325 mg (65 mg 325 mg PO QAM 10/08/19 08/30/23 History iron) tablet folic acid 1 mg tablet 1 mg PO DAILY 10/08/19 08/30/23 History losartan 25 mg tablet 25 mg PO DAILY 10/08/19 08/30/23 History metformin 500 mg tablet,extended 1,000 mg PO DAILY 10/08/19 08/30/23 History release 24 hr omeprazole 20 mg capsule,delayed 20 mg PO QAM 10/08/19 08/30/23 History release potassium chloride 20 mEq 20 meq PO BID 10/08/19 08/30/23 History tablet,extended release(part/cryst) semaglutide 1 mg/dose (2 mg/1.5 1 mg subcut WK 10/08/19 08/30/23 History mL) subcutaneous pen injector (Ozempic) spironolactone 25 mg tablet 25 mg PO TID 10/08/19 08/30/23 History tamsulosin 0.4 mg capsule 0.4 mg PO DAILY 10/08/19 08/30/23 History torsemide 20 mg tablet 80 mg PO BID 10/08/19 08/30/23 History albuterol sulfate 2.5 mg/3 mL 2.5 mg inhalation UD PRN Dyspnea 03/02/22 08/30/23 History (0.083 %) solution for nebulization albuterol sulfate 90 mcg/actuation 2 puff inhalation Q4 PRN Dyspnea 03/02/22 08/30/23 History aerosol inhaler ascorbic acid (vitamin C) 250 mg 500 - 750 mg PO DAILY 03/02/22 08/30/23 History tablet (Vitamin C) azelastine 137 mcg (0.1 %) nasal 1 spray intranasal BID 03/02/22 08/30/23 History spray aerosol cromolyn 4 % eye drops 1 drp OPB QID PRN allergy or 03/02/22 08/30/23 History itching fluticasone furoate 200 1 ea inhalation DAILY 03/02/22 08/30/23 History mcg-vilanterol 25 mcg/dose inhalation powder (Breo Ellipta) fluticasone propionate 50 2 spray intranasal DAILY 03/02/22 08/30/23 History mcg/actuation nasal spray,suspension levocetirizine 5 mg tablet 5 mg PO DAILY PRN Allergy Symptoms 03/02/22 08/30/23 History metolazone 2.5 mg tablet 2.5 mg PO UD 03/02/22 08/30/23 History montelukast 10 mg tablet 10 mg PO HS 03/02/22 08/30/23 History multivitamin 1 tab PO DAILY 03/02/22 08/30/23 History acetaminophen 325 mg tablet 650 mg (2 x 325 mg) PO Q4H PRN 03/04/22 08/30/23 Rx pain #30 tabs lidocaine 4 % topical patch 1 patch topical DAILY #15 ea 03/04/22 08/30/23 Rx loratadine 10 mg tablet 10 mg PO DAILY PRN allergies 08/30/23 08/30/23 History tiotropium bromide 2.5 2 puff inhalation DAILY 08/30/23 08/30/23 History mcg/actuation mist for inhalation (Spiriva Respimat) Patient History Medical History DMII (diabetes mellitus, type 2) CHF (congestive heart failure), NYHA class III Pulmonary blastomycosis Chronic respiratory failure Pulmonary HTN HTN (hypertension) Right-sided heart failure ANGELES (obstructive sleep apnea) Pulmonary sarcoidosis Depression Surgical History [place] heart [place] [facility] [place]oscopy Hx of tonsillectomy Family History Other Cancer Sarcoidosis Social History Smoking Status: Never smoker Tobacco Type: Smokeless Tobacco (Dip or Chew) Second Hand Exposure: No; Do You Dip or Chew Tobacco: Yes; Hx Alcohol Use: Yes Alcohol type: beer Hx Substance Use: No Preferred Language: Portuguese Communication Ability: Effective Construction 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 All else were negative. Physical Exam Physical Exam: VITAL SIGNS - Vital signs and nursing notes were reviewed. GENERAL - 52-year-old male appearing his stated age who is in no acute distress. Communicates well with provider and answers questions appropriately. SKIN - Without rashes or lesions. NOSE - Midline and without cyanosis. MOUTH/OROPHARYNX - Without perioral cyanosis. NECK - Neck with FROM. LUNGS - Chest wall evaluation demonstrates normal chest wall A:P diameter. Auscultation reveals diffuse wheezes with delayed air entry. No rales or rhonchi appreciated. CARDIAC - RRR with S1/S2. No murmur, rubs, or gallops appreciated. ABDOMEN - Abdominal inspection demonstrates an obese abdomen. BS normoactive all four quadrants. No tenderness, palpable masses, or ascites noted. EXTREMITIES - Nail clubbing not present. No peripheral cyanosis. No pretibial edema present. +3/5 radial palpated throughout. PSYCH - A&Ox3 and cooperates fully with examiner. Pt is very pleasant and interacts well with examiner. Results & Data Results & Data Vital Signs (Past 12 Hours) Vital Signs Temp Pulse Pulse Resp BP Pulse Ox O2 Del Method 08/31/23 07:18 76 17 93 CPAP 08/31/23 04:01 36.6 C 75 18 110/69 96 CPAP 08/31/23 00:06 36.6 C 86 18 107/63 97 Nasal Cannula 08/30/23 23:00 91 H 08/30/23 21:35 88 96 High Flow Nasal Cannula O2 Flow Rate 08/31/23 07:18 10 08/31/23 04:01 08/31/23 00:06 10 08/30/23 23:00 08/30/23 21:35 10 PG Care Time/CCT Total # of Minutes Spent Total Time Spent with Patient: Total time spent is greater than 50% in coordination of care (as documented) at patient's floor/unit and/or counseling patient: Coding Level of Care Code 81449 INT INP/OBS CARE 3/75MIN Diagnoses Acute on chronic hypoxic respiratory failure J96.21 Parainfluenza infection B34.8 COPD exacerbation J44.1 Fluid overload E87.70 CHF (congestive heart failure), NYHA class III I50.9 Pulmonary HTN I27.20 ANGELES (obstructive sleep apnea) G47.33 Pulmonary sarcoidosis D86.0
[2023-08-31] MEDS ORDERED: FLUTICASONE/VILANTEROL 200/25MCG 14 PUFFS/INHALER INH SCH (09:00)
[2023-08-31] MEDS: ACETAMINOPHEN 325 MG TAB PO PRN (09:26)
[2023-08-31] MEDS: ASCORBIC ACID 500 MG TAB PO SCH (09:27)
[2023-08-31] MEDS: ASPIRIN 81 MG ECTAB PO SCH (09:27)
[2023-08-31] MEDS: DIGOXIN 0.125 MG TAB PO SCH (09:28)
[2023-08-31] MEDS: CITALOPRAM 20 MG TAB PO SCH (09:28)
[2023-08-31] MEDS: EMPAGLIFLOZIN 25 MG TAB PO SCH (09:28)
[2023-08-31] MEDS: FOLIC ACID 1 MG TAB PO SCH (09:29)
[2023-08-31] MEDS: FLUTICASONE PROPIONATE NA SPR 16 GM BTL NAE SCH (09:29)
[2023-08-31] MEDS: FERROUS SULFATE 325 MG TAB PO SCH (09:29)
[2023-08-31] MEDS: guaiFENesin 600 MG TABCR PO SCH (09:30)
[2023-08-31] MEDS: MULTIVITAMIN TAB PO SCH (09:31)
[2023-08-31] MEDS: LOSARTAN POTASSIUM 25 MG TAB PO SCH (09:31)
[2023-08-31] MEDS: LIDOCAINE 5% 1 PATCH TD SCH (09:31)
[2023-08-31] MEDS: PANTOprazole 40 MG TAB PO SCH (09:36)
[2023-08-31] MEDS: TORSEMIDE 20 MG TAB PO SCH (09:37)
[2023-08-31] MEDS: TAMSULOSIN HCL 0.4 MG CAP PO SCH (09:37)
[2023-08-31] MEDS: UMECLIDINIUM BROMIDE 62.5MCG/BLISTER 7 PUFFS/INHALER INH SCH (09:38)
--- NOTE | 2023-08-31 11:50 | Hospitalist Progress Note ---
Date of Service August 31, 2023 Assessment & Plan (1) Acute on chronic hypoxic respiratory failure: (2) COPD exacerbation: (3) URI (upper respiratory infection): (4) Pulmonary sarcoidosis: Plan: This is a 52-year-old male with PMH of COPD, sarcoidosis of lung, chronic respiratory failure on 4 to 5 L nasal cannula O2 at baseline (per pt), severe obstructive sleep apnea on bipap, history of chronic right-sided heart failure in setting of cor pulmonale, pulm HTN, 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 Dsouza at [facility], type 2 diabetes, hypertension, depression, history of C. 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 He reported dry cough to begin with now with clear sputum, denied fever. Acute on chronic respiratory failure requiring high flow nasal cannula on admission (is on chronic 4 to 5 L nasal cannula oxygen at baseline) Endorsing recent URI with productive sputum, cough Respiratory viral panel positive for parainfluenza Afebrile, no leukocytosis, VBG pH of 7.49 Procalcitonin negative CXR with Cardiomegaly with evidence of congestive failure. Bilateral airspace opacities are similar to prior studies and may represent chronic scarring/fibrosis. Correlate clinically for evidence of a superimposed infectious/inflammatory pneumonitis Given 125mg solumedrol in ED - continue with 40mg Q8H, Duonebs QIDR, wean O2 to baseline as tolerated, Mucinex BID, Flutter valve Continue home Breo, spiriva inh Routine pulm consult Follows with Dr. Dsouza at [facility] for pulm - no longer on methotrexate or prednisone f/u CT chest Monitoring off of antibiotic, low threshold for starting antibiotic. (5) ANGELES (obstructive sleep apnea): Plan: On bipap HS with 6L NC O2 bled through HS (6) Right-sided heart failure: Plan: In setting of cor pulmonale, pulm HTN Appears euvolemic on exam, denies any recent BLE edema given 40mg IV lasix in ED BNP WNL Continue home diuretics with Torsemide 80mg BID, spironolactone TID Continue digoxin Due for cards follow up 09/06 (7) Hypokalemia: Plan: Initial K 3.1, replaced Continue home supplementation Monitor with daily BMP (8) HTN (hypertension): Plan: Initially on lower side, now 119/73 Continue losartan, spironolactone, torsemide as above (9) Depression: Plan: Chronic, stable. Continue SSRI (10) DMII (diabetes mellitus, type 2): Plan: Well- controlled, last a1c 5.4 in 09/26 Hold home agents SSI while in-patient BSG AC HS DVT Ppx: SQ lovenox Code status: FULL PCP: Chang Dispo: Admitted to PCU Admission and Anticipated Discharge Date Admission Date: August 30, 2023 Subjective Patient was seen and examined at bedside. Patient was sitting up in bed, on 10 L oxygen via high flow nasal cannula, not in acute distress. Patient reports dry cough to begin with, now with clear sputum. Patient denies recent fevers. Patient denies any chest pain or abdominal pain or acute changes in his bowel or bladder habit. Physical Exam Physical Exam: General Appearance: WD/WN, vitals as above, NAD, sitting up on chair, high flow o2 - 10L, pleasant, minimal conversational dyspnea Head: normocephalic, atraumatic Eyes: normal inspection, PERRL, conjunctivae normal, anicteric sclerae ENT: external ear and nose normal, oropharynx normal Neck: normal visual inspection, trachea midline, no thyromegaly Respiratory: diminished breath sounds, diffuse wheezing throughout lung moser. Cardiovascular: regular rate, rhythm, normal peripheral pulses, no BLE edema. Vessels: no JVD Chest: normal inspection of chest Abdomen/GI: normal bowel sounds, soft, nontender, no hepatosplenomegaly Extremities/Musculoskeletal: no cyanosis or clubbing, extremities motor strength 5/5 Neurologic: PERRL, EOMI, accommodation nl, no face palsy, no dysarthria, CN's II-XI intact bilaterally and moves all extremities Psychiatric: A+Ox3, euthymic affect Skin: no rashes, normal color, warm/dry Results & Data Results & Data Vital Signs (Past 12 Hours) Vital Signs Temp Pulse Pulse Resp BP Pulse Ox O2 Del Method 08/31/23 09:28 74 08/31/23 09:15 36.7 C 74 18 119/61 97 Nasal Cannula 08/31/23 07:18 76 17 93 CPAP 08/31/23 04:01 36.6 C 75 18 110/69 96 CPAP 08/31/23 00:06 36.6 C 86 18 107/63 97 Nasal Cannula O2 Flow Rate 08/31/23 09:28 08/31/23 09:15 10 08/31/23 07:18 10 08/31/23 04:01 08/31/23 00:06 10
--- NOTE | 2023-08-31 13:13 | CT Scan Report ---
CT OF THE CHEST WITHOUT IV CONTRAST CLINICAL HISTORY: Pneumonia. Shortness of breath. COMPARISON STUDY: Chest CT March 02, 2022. Chest radiograph August 30, 2023. CT DOSE: 893.15 mGy.cm TECHNIQUE: Axial images of the chest were obtained without IV contrast. Images were reviewed in the axial, sagittal, and coronal planes. IV contrast was not administered for this examination. Automat ed exposure control was utilized for the study. A dose lowering technique was utilized adhering to t he principles of ALARA. FINDINGS: A mildly enlarged prevascular lymph node on image 85 of [address] of [facility] 2021. Cardiomegaly is unchanged. There is mild dilatation of the central pulmonary arteries . No pericardial effusion is present. Calcified mediastinal and bilateral hilar lymph nodes indicate a granulomatous process. Chronic bilateral pleural effusions, right larger than left, are unchanged s quan CT of March 02, 2022. As before, the right pleural effusion appears complex with hyperdensit y and calcifications. Multifocal scarring within the lungs with scattered irregular pulmonary nodules remain unchanged. No superimposed consolidation is identified. Mild groundglass opacities are simila r to prior exam. SPECT and superimposed emphysema. There is no pneumothorax. No acute fractures withi n the bony thorax. Visualized portions of the upper abdomen appear unchanged. IMPRESSION: 1. No significant change in appearance of the chest since CT of March 02, 2022. 2. Evidence for a granulomatous process with calcified mediastinal and bilateral hilar lymph nodes an d multifocal distortion/scarring and irregular nodules within the lungs. The findings suggest sarcoid osis. No superimposed pneumonia. 3. No change in chronic bilateral pleural effusions, right larger than left. As before, the right ple ural effusion appears complex, containing hyperdensity and calcifications. ACT 112: Negative or not required by law. Electronically signed by: Matthew Crook M.D. 08/31/2023 1:11 PM
--- NOTE | 2023-08-31 14:50 | XCELERA ---
[id number]
--- NOTE | 2023-08-31 16:00 | Electrocardiogram Report ---
Test Reason : Blood Pressure : / mmHG Vent. Rate : 086 BPM Atrial Rate : 086 BPM P-R Int : 148 ms QRS Dur : 106 ms QT Int : 362 ms P-R-T Axes : 052 123 018 degrees QTc Int : 433 ms Normal sinus rhythm Right axis deviation Incomplete right bundle branch block Nonspecific ST and T wave abnormality Abnormal ECG When compared with ECG of 02-MAR-2022 19:09, Incomplete right bundle branch block is now Present Non-specific change in ST segment in Inferior leads Nonspecific T wave abnormality, worse in Anterior leads Confirmed by Gary Roberts ([id number]) on 08/31/2023 3:59:57 PM Referred By: REFERRED SELF Confirmed By:Gary Roberts
[2023-08-31] MEDS: FORMOTEROL 20 MCG/2 ML VIAL INH SCH (19:30)
[2023-08-31] MEDS: SODIUM CHLOR 7% 4 ML NEB NEB SCH (19:30)
[2023-08-31] MEDS: BUDESONIDE 0.5 MG/2 ML VIAL (PULMICORT) INH SCH (19:30)
[2023-09-01 06:38] LABS: BUN Creatinine Ratio 22.7 (10-20); Calcium 8.7 mg/dl (8.6-10.3); Creatinine Clr Calc Pharmacy 93.4 ml/min; Est GFR (African American) 88.4 ml/min; Est GFR (Non-African American) 76.2 ml/min; Magnesium 2.5 mg/dl (1.7-2.4); Phosphorus 3.4 mg/dl (2.5-4.9); Potassium 4.4 mmol/L (3.5-5.1)
[2023-09-01 06:42] LABS: Hematocrit (blood only) 47.3 % (42.0-52.0); Hemoglobin 15.3 g/dl (14.0-18.0); Mean Corpuscular Hgb Conc 32.3 g/dL (32.0-36.0); Mean Corpuscular Volume 95.9 fL (80.0-100.0); Platelet Count 310 K/uL (130-400); RDW Coefficient of Variation 14.1 % (11.5-14.5); RDW Standard Deviation 50.4 fL (36.4-46.3); Red Blood Count 4.93 M/uL (4.70-6.10); White Blood Count 10.27 K/ul (4.8-10.8)
--- NOTE | 2023-09-01 07:51 | Pulmonology Progress Note ---
Date of Service September 01, 2023 Assessment & Plan (1) Acute on chronic hypoxic respiratory failure: (2) Parainfluenza infection: (3) COPD exacerbation: (4) Fluid overload: (5) CHF (congestive heart failure), NYHA class III: (6) Pulmonary HTN: (7) ANGELES (obstructive sleep apnea): (8) Pulmonary sarcoidosis: Plan IMPRESSION: 52-year-old male with an extensive pulmonary history including pulmonary sarcoidosis, blastomycosis with respiratory failure requiring eventual tracheostomy and subsequent revision, COPD, chronic respiratory failure with hypoxia, and severe sleep apnea who presents in the setting of acute parainfluenza infection with associated acute on chronic hypoxic respiratory failure. RECOMMENDATIONS: 1. Acute on chronic hypoxic respiratory failure - In the setting of parainfluenza infection with associated volume overload. Chest x-ray findings concerning for pulmonary edema. Follow-up CT without any concerning infiltrative processes. Continue with gentle diuresis in the setting of pulmonary HTN. Titrate down O2 as tolerated. 2. Parainfluenza infection - Supportive care as you are. 3. COPD exacerbation - Likely secondary to #2. Continue with aggressive pulmonary toileting including flutter valve and incentive spirometry. Continue with nebulized budesonide, Perforomist, and hypertonic saline. He is still moderately bronchospastic on exam today but improved from yesterday. Continue with parenteral steroids q8h for now. Consider tapering down tomorrow if continued improvement. 4. Pulmonary Hypertension - Continue with diuresis in the setting of Pulmonary HTN, hypoxia, Dyspnea. 5. Obstructive sleep apnea - Continue with home BiPAP settings as tolerated. May require increasing nocturnal oxygen in the acutely ill setting. 6. Pulmonary sarcoidosis - As previously managed in the outpatient setting at [facility]. Currently not on maintenance therapy at this point. Will defer ongoing care to them in the outpatient setting. 7. Chronic Rhinosinusitis - Recurrent issues with RIGHT sided naris and ongoing congestion and postnasal drip. Likely contributing to a degree of upper airway cough syndrome. Continue with Flonase and Mucinex. Add nasal saline. Consider outpatient ENT referral and/or sinus imaging in the setting of recurrent sinus issues. Thank you for allowing us to participate in the care of this pleasant patient. Pulmonary medicine will continue to follow along. Admission and Anticipated Discharge Date Admission Date: August 30, 2023 Supervising Physician Co-Signing Physician Notes I saw and evaluated the patient with Nathan Alexander PA-C, and agree with findings and plan as documented in the note. At the time of examination patient was saturating 95% on 6 L nasal cannula. I went down to 5 L. He says that he is feeling better right now but he had a rough night. He had the feeling that he has phlegm but he was not able to bring it up. He did use his BiPAP which helped him to a certain degree. He feels that sticky phlegm is stuck in his throat and is not able to bring it up Denies any hemoptysis No headache, no blurry vision, fair appetite, no nausea or vomiting CT chest 08/31/2023 personally reviewed: Fibrotic changes appreciated in the parenchyma bilaterally upper and lower lobes, more pronounced in the upper lobes Motion degraded study Cardiomegaly Calcified mediastinal and lymph nodes Constitutional: No acute distress HEENT: EOMI, PERRLA Respiratory system: Decreased air entry bilaterally, positive expiratory wheeze bilaterally, no rhonchi, positive crackles bilaterally CVS: S1-S2 positive, no murmurs or gallops, accentuated P2 Abdomen: Soft, nontender, nondistended, positive bowel sounds x4 Extremities: +2 pulses bilaterally radialis/ dorsalis pedis, no cyanosis, minimal pitting edema bilateral lower extremity Neuro: Awake alert oriented x3 Psych: Normal mood and affect G/U: No [place] Plan: Patient is likely into acute COPD exacerbation from parainfluenza Would recommend to continue with budesonide and formoterol nebulized along with Incruse. Continue with Solu-Medrol 40 mg every 8. Continue with hypertonic saline nebulized along with flutter valve and Mucinex Still complaining of nasal congestion, he is already on Flonase. Cetirizine as needed. I will change it to Benadryl 25 mg twice daily instead Given the patient has chronic right-sided heart failure, would recommend to continue with diuretics to keep the patient negative balance Patient has chronic bilateral pleural effusion which has not changed in size for more than 2 years. No need for any intervention For pulmonary sarcoidosis he has been off of any medication for approximately a year. Used to be on methotrexate and prednisone in the past. Continue with diuretics to keep the patient negative balance Keep O2 saturation between 90-92% given the history of pulmonary hypertension Continue with BiPAP nightly and as needed shortness of breath Please note the above document was generated using voice recognition software. It may contain grammatical, syntax or spelling errors.Any formal questions or concerns about the content, text or information contained within the body of this dictation should be directly addressed to the provider for clarification. Subjective Patient seen and evaluated at bedside. He reports that he had an accident last night when he had a coughing fit and lost control of his bowels and bladder. He notes that this has happened at home when his oxygen levels have dropped. He is doing well at this time. He reports slightly less wheezing. Patient complains of nasal congestion which she reports seems to occur on a frequent basis. He has difficulty breathing out of his RIGHT naris which he reports has been a recurring issue as well. Review of Systems Review of Systems: A complete 10 point review of systems was reviewed with the patient with pertinent positives and negatives as per history of present illness. All else were negative. Physical Exam Physical Exam: VITAL SIGNS - Vital signs and nursing notes were reviewed. GENERAL - 52-year-old male appearing his stated age who is in no acute distress. Communicates well with provider and answers questions appropriately. LUNGS - Diffuse wheezing appreciated. CARDIAC - RRR with S1/S2. No murmur, rubs, or gallops appreciated. PSYCH - A&Ox3 and cooperates fully with examiner. Pt is very pleasant and interacts well with examiner. Results & Data Results & Data Vital Signs (Past 12 Hours) Vital Signs Temp Pulse Pulse Resp BP Pulse Ox O2 Del Method 09/01/23 07:08 84 20 94 BiPAP 09/01/23 04:00 36.4 C L 78 18 108/55 L 91 Nasal CPAP 08/31/23 23:53 75 08/31/23 23:15 36.5 C 68 18 103/60 95 Nasal Cannula 08/31/23 21:00 Nasal Cannula, BiPAP O2 Flow Rate 09/01/23 07:08 6 09/01/23 04:00 5 08/31/23 23:53 08/31/23 23:15 5 08/31/23 21:00 5 PG Care Time/CCT Total # of Minutes Spent Total Time Spent with Patient: Total time spent is greater than 50% in coordination of care (as documented) at patient's floor/unit and/or counseling patient: Coding Level of Care Code 25353 SUB INP/OBS CARE 2/35MIN Diagnoses Acute on chronic hypoxic respiratory failure J96.21 Parainfluenza infection B34.8 COPD exacerbation J44.1 Fluid overload E87.70 CHF (congestive heart failure), NYHA class III I50.9 Pulmonary HTN I27.20 ANGELES (obstructive sleep apnea) G47.33 Pulmonary sarcoidosis D86.0
[2023-09-01] MEDS ORDERED: SODIUM CHLORIDE 0.65% NA SOLN 45 ML (OCEAN) PRN (08:56)
[2023-09-01] MEDS: diphenhydrAMINE Capsule 25 MG CAP PO SCH (12:10)
--- NOTE | 2023-09-01 15:53 | Hospitalist Progress Note ---
Date of Service September 01, 2023 Assessment & Plan (1) Acute on chronic hypoxic respiratory failure: Plan: Secondary to parainfluenza infection with history of sarcoid lung disease, sleep apnea, right-sided heart failure and COPD Condition has been improving slowly Appreciate pulmonary input and recommendation Will continue current management with steroid and bronchodilators Parainfluenza Symptomatic management Has been getting better gradually (2) COPD exacerbation: Plan: Has been on steroid and bronchodilators Oxygen as needed with CPAP (3) URI (upper respiratory infection): (4) Pulmonary sarcoidosis: Plan: This is a 52-year-old male with PMH of COPD, sarcoidosis of lung, chronic respiratory failure on 4 to 5 L nasal cannula O2 at baseline (per pt), severe obstructive sleep apnea on bipap, history of chronic right-sided heart failure in setting of cor pulmonale, pulm HTN, 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 Dsouza at [facility], type 2 diabetes, hypertension, depression, history of C. 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 He reported dry cough to begin with now with clear sputum, denied fever. Acute on chronic respiratory failure requiring high flow nasal cannula on admission (is on chronic 4 to 5 L nasal cannula oxygen at baseline) Endorsing recent URI with productive sputum, cough Respiratory viral panel positive for parainfluenza Afebrile, no leukocytosis, VBG pH of 7.49 Procalcitonin negative CXR with Cardiomegaly with evidence of congestive failure. Bilateral airspace opacities are similar to prior studies and may represent chronic scarring/fibrosis. Correlate clinically for evidence of a superimposed infectio us/inflammatory pneumonitis Given 125mg solumedrol in ED - continue with 40mg Q8H, Duonebs QIDR, wean O2 to baseline as tolerated, Mucinex BID, Flutter valve Continue home Breo, spiriva inh Routine pulm consult -appreciate input and recommendation Follows with Dr. Dsouza at [facility] for pulm - no longer on methotrexate or prednisone f/u CT chest Monitoring off of antibiotic, low threshold for starting antibiotic. Has not been getting any treatment for sarcoidosis as of now Will need to follow-up with his information analyst as an outpatient (5) ANGELES (obstructive sleep apnea): Plan: On bipap HS with 6L NC O2 bled through HS (6) Right-sided heart failure: Plan: In setting of cor pulmonale, pulm HTN Appears euvolemic on exam, denies any recent BLE edema given 40mg IV lasix in ED BNP WNL Continue home diuretics with Torsemide 80mg BID, spironolactone TID Continue digoxin Due for cards follow up 09/06 No signs and symptoms of fluid overload (7) Hypokalemia: Plan: Initial K 3.1, replaced Continue home supplementation Monitor with daily BMP -remain stable (8) HTN (hypertension): Plan: Initially on lower side, now 119/73 Continue losartan, spironolactone, torsemide as above (9) Depression: Plan: Chronic, stable. Continue SSRI (10) DMII (diabetes mellitus, type 2): Plan: Well- controlled, last a1c 5.4 in 09/26 Hold home agents SSI while in-patient BSG AC HS DVT Ppx: SQ lovenox Code status: FULL PCP: Chang Dispo: Admitted to PCU Admission and Anticipated Discharge Date Admission Date: August 30, 2023 Subjective 09/01/2023 The patient was seen and examined in telemetry unit He has been feeling a little better but he still has significant cough and wheezing with shortness of breath Denies any chest pain and her palpitation No fever and or chills Review of Systems 2 Review of Systems: All systems reviewed and are unremarkable except as noted below Physical Exam Physical Exam: Sitting on a chair with moderate distress due to shortness of breath Constitutional: well developed, well nourished, + ill appearing and + obese Eyes: PERRL, conjunctivae normal, anicteric sclerae ENMT: external ear and nose normal, oropharynx normal Neck: trachea midline, no thyromegaly Respiratory: + respiratory distress (Mild to moderate distress at rest) Auscultation: + diminished lung sounds, + crackles and + wheezes Cardiovascular: Rate/Rhythm: regular rate and regular rhythm; not tachycardic Heart Sounds: normal S1 and normal S2; no murmur Extremities: + edema (Trace edema bilaterally) Gastrointestinal (Abdomen): Inspection/Auscultation: normal bowel sounds; abdomen not distended Percussion/Palpation: abdomen soft; abdomen nontender Musculoskeletal: No acute arthritis involving any joint Neurologic: normal touch/pain/proprioception and moves all extremities; no focal motor deficits Lymphatic: no cervical or axillary lymphadenopathy Results & Data Results & Data Vital Signs (Past 12 Hours) Vital Signs Temp Pulse Pulse Resp BP Pulse Ox O2 Del Method 09/01/23 15:40 36.5 C 65 20 105/61 94 CPAP 09/01/23 15:03 80 18 95 BiPAP 09/01/23 11:48 72 18 97 Nasal Cannula 09/01/23 10:59 36.8 C 74 18 107/64 97 Nasal Cannula 09/01/23 10:07 80 09/01/23 08:05 36.5 C 81 22 106/67 96 CPAP 09/01/23 08:00 80 09/01/23 08:00 Nasal Cannula 09/01/23 07:08 84 20 94 BiPAP 09/01/23 04:00 36.4 C L 78 18 108/55 L 91 Nasal CPAP O2 Flow Rate 09/01/23 15:40 09/01/23 15:03 6 09/01/23 11:48 5 09/01/23 10:59 5.0 09/01/23 10:07 09/01/23 08:05 09/01/23 08:00 09/01/23 08:00 5 09/01/23 07:08 6 09/01/23 04:00 5 Laboratory Results Short CBC 09/01/23 Range/Units 05:53 WBC 10.27 (4.8-10.8) K/ul Hgb 15.3 (14.0-18.0) g/dl Hct 47.3 (42.0-52.0) % Plt Count 310 (130-400) K/uL BMP 09/01/23 05:53 Sodium 138 Potassium 4.4 Chloride 100 Carbon Dioxide 32 BUN 25 H Creatinine 1.10 Glucose 130 H Calcium 8.7 Medications Administered Current Inpatient Medications Acetaminophen (Acetaminophen 325 Mg Tab) 650 mg PO Q4H PRN PRN Reason: Pain or Fever Stop: 09/29/23 19:58 Last Admin: 08/31/23 20:58 Dose: 650 mg Albuterol (Albut/Ipratrop 3mg/0.5mg Neb 3 Ml Vial) 3 ml NEB QIDR YAA; Protocol Stop: 09/29/23 19:24 Last Admin: 09/01/23 15:02 Dose: 3 ml Albuterol (Albuterol Hfa 8 Gm Inhaler) 2 puffs INH Q4 PRN PRN Reason: Dyspnea Stop: 09/29/23 19:58 Ascorbic Acid (Ascorbic Acid 500 Mg Tab) 500 mg PO DAILY YAA Stop: 09/30/23 08:59 Last Admin: 09/01/23 10:06 Dose: 500 mg Aspirin (Aspirin 81 Mg Ectab) 81 mg PO DAILY YAA Stop: 09/30/23 08:59 Last Admin: 09/01/23 10:06 Dose: 81 mg Budesonide (Budesonide 0.5 Mg/2 Ml Vial (Pulmicort)) 0.5 mg INH BIDR YAA Stop: 09/30/23 18:59 Last Admin: 09/01/23 07:06 Dose: 0.5 mg Citalopram Hydrobromide (Citalopram 20 Mg Tab) 20 mg PO DAILY YAA Stop: 09/30/23 08:59 Last Admin: 09/01/23 10:07 Dose: 20 mg Dextrose (Dextrose 50% 50 Ml Syringe) 25 - 50 ml IV UD PRN; Protocol PRN Reason: Hypoglycemia Protocol Stop: 09/29/23 20:14 Digoxin (Digoxin 0.125 Mg Tab) 0.125 mg PO DAILY YAA Stop: 09/30/23 08:59 Last Admin: 09/01/23 10:07 Dose: 0.125 mg Diphenhydramine HCl (Diphenhydramine Capsule 25 Mg Cap) 25 mg PO BID YAA Stop: 10/01/23 10:59 Last Admin: 09/01/23 12:10 Dose: 25 mg Empagliflozin (Empagliflozin 25 Mg Tab) 25 mg PO DAILY YAA Stop: 09/30/23 08:59 Last Admin: 09/01/23 10:07 Dose: 25 mg Enoxaparin Sodium (Enoxaparin Inj 40 Mg/0.4 Ml Syr) 40 mg SQ Q24H YAA Stop: 09/29/23 21:14 Last Admin: 08/31/23 20:57 Dose: 40 mg Ferrous Sulfate (Ferrous Sulfate 325 Mg Tab) 325 mg PO QAM YAA Stop: 09/30/23 08:59 Last Admin: 09/01/23 10:08 Dose: 325 mg Fluticasone Propionate (Fluticasone Propionate Na Spr 16 Gm Btl) 2 sprays NILDA DAILY YAA Stop: 09/30/23 08:59 Last Admin: 09/01/23 10:08 Dose: 2 sprays Fluticasone/Vilanterol (Fluticasone/Vilanterol 200/25mcg 14 Puffs/Inhaler) 1 puffs INH DAILY YAA Stop: 09/30/23 08:59 Folic Acid (Folic Acid 1 Mg Tab) 1 mg PO DAILY YAA Stop: 09/30/23 08:59 Last Admin: 09/01/23 10:09 Dose: 1 mg Formoterol Fumarate (Formoterol 20 Mcg/2 Ml Vial) 20 mcg INH BIDR YAA Stop: 09/30/23 18:59 Last Admin: 09/01/23 07:06 Dose: 20 mcg Glucagon (Glucagon For Inj 1 Mg Vial) 1 mg SQ UD PRN; Protocol PRN Reason: Hypoglycemia Protocol Stop: 09/29/23 20:14 Glucose (Glucose 10 Tab/Tube) 4 - 8 tab PO UD PRN; Protocol PRN Reason: Hypoglycemia Treatment Stop: 09/29/23 20:14 Glucose (Glucose 40% Gel 15 Gm Tube) 15 - 30 gm PO UD PRN; Protocol PRN Reason: Hypoglycemia Protocol Stop: 09/29/23 20:14 Guaifenesin (Guaifenesin 600 Mg Tabcr) 1,200 mg PO Q12 YAA Stop: 10/01/23 20:59 Methylprednisolone 40 mg/ (Syringe) 0.64 mls @ 1.5 mls/min IV Q8H YAA Stop: 09/29/23 19:58 Last Admin: 09/01/23 12:12 Dose: 1.5 mls/min Insulin Aspart (Insulin Aspart Per Unit Charge) 0 units SC ACHS YAA Stop: 09/29/23 20:59 Last Admin: 09/01/23 12:10 Dose: Not Given Lidocaine (Lidocaine 5% 1 Patch) 1 patch TD DAILY YAA Stop: 09/30/23 08:59 Last Admin: 09/01/23 10:09 Dose: Not Given Loratadine (Loratadine 10 Mg Tab) 10 mg PO DAILY PRN PRN Reason: allergies Stop: 09/29/23 19:58 Losartan Potassium (Losartan Potassium 25 Mg Tab) 25 mg PO DAILY YAA Stop: 09/30/23 08:59 Last Admin: 09/01/23 10:09 Dose: 25 mg Miscellaneous (Cromolyn 4 % Drops - Order Awaiting Action) 1 each N/A QS YAA Stop: 09/30/23 00:00 Last Admin: 09/01/23 10:04 Dose: Not Given Miscellaneous (Carbohydrates For Hypoglycemia ) 15 - 30 gm PO UD PRN PRN Reason: Hypoglycemia Protocol Stop: 09/29/23 20:14 Miscellaneous (Remove Lidoderm Patch) 1 each N/A DAILY@2100 YAA Stop: 09/29/23 20:59 Last Admin: 08/31/23 21:03 Dose: Not Given Montelukast Sodium (Montelukast Sodium 10 Mg Tablet) 10 mg PO HS YAA Stop: 09/29/23 20:59 Last Admin: 08/31/23 21:02 Dose: 10 mg Multivitamins (Multivitamin Tab) 1 tab PO DAILY YAA Stop: 09/30/23 08:59 Last Admin: 09/01/23 10:09 Dose: 1 tab Ondansetron HCl (Ondansetron Inj 2 Mg/Ml 2 Ml Vial) 4 mg IV Q6H PRN PRN Reason: Nausea Stop: 09/29/23 19:58 Pantoprazole Sodium (Pantoprazole 40 Mg Tab) 40 mg PO QAM YAA Stop: 09/30/23 08:59 Last Admin: 09/01/23 10:10 Dose: 40 mg Polyethylene Glycol (Polyethylene (Miralax) 17 Gm Pack) 17 gm PO DAILY PRN PRN Reason: Constipation Stop: 09/29/23 19:58 Potassium Chloride (Potassium Chloride Crtab 20 Meq Tabcr) 20 meq PO BID YAA Stop: 09/29/23 20:59 Last Admin: 09/01/23 10:10 Dose: 20 meq Sodium Chloride (Sodium Chlor 7% 4 Ml Neb) 4 ml NEB BIDR YAA Stop: 09/30/23 18:59 Last Admin: 09/01/23 07:07 Dose: 4 ml Sodium Chloride (Sodium Chloride 0.65% Na Soln 45 Ml (Mango)) 2 sprays NA TID PRN PRN Reason: Congestion Stop: 10/01/23 08:55 Spironolactone (Spironolactone 25 Mg Tab) 25 mg PO TID YAA Stop: 09/29/23 20:59 Last Admin: 09/01/23 13:37 Dose: 25 mg Tamsulosin HCl (Tamsulosin Hcl 0.4 Mg Cap) 0.4 mg PO DAILY YAA Stop: 09/30/23 08:59 Last Admin: 09/01/23 10:12 Dose: 0.4 mg Torsemide (Torsemide 20 Mg Tab) 80 mg PO BID YAA Stop: 09/30/23 08:59 Last Admin: 09/01/23 10:12 Dose: 80 mg Umeclidinium [place] (Umeclidinium [place] 62.5mcg/Blister 7 Puffs/Inhaler) 1 puffs INH DAILY YAA Stop: 09/30/23 08:59 Last Admin: 09/01/23 10:12 Dose: 1 puffs
[2023-09-01] MEDS: guaiFENesin 600 MG TABCR PO SCH (21:09)
[2023-09-02 06:54] LABS: Hematocrit (blood only) 46.6 % (42.0-52.0); Hemoglobin 15.2 g/dl (14.0-18.0); Immature Granulocytes # (auto) 0.03 K/uL (0.01-0.20); Immature Granulocytes % (auto) 0.3 %; Lymphocytes # (auto) 0.53 K/uL (1.20-3.40); Lymphocytes % (auto) 5.6 %; Mean Corpuscular Hemoglobin 30.8 pg (25.0-34.0); Mean Corpuscular Hgb Conc 32.6 g/dL (32.0-36.0); Mean Corpuscular Volume 94.5 fL (80.0-100.0); Mean Platelet Volume 8.7 fL (9.4-12.4); Monocytes # (auto) 0.51 K/uL (0.11-0.59); Monocytes % (auto) 5.4 %; Neutrophils # (auto) 8.33 K/uL (1.40-6.50); Neutrophils % (auto) 88.7 %; Platelet Count 330 K/uL (130-400); RDW Coefficient of Variation 14.2 % (11.5-14.5); RDW Standard Deviation 49.4 fL (36.4-46.3); Red Blood Count 4.93 M/uL (4.70-6.10)
[2023-09-02 07:06] LABS: BUN Creatinine Ratio 27.8 (10-20); Calcium 8.7 mg/dl (8.6-10.3); Creatinine Clr Calc Pharmacy 89.3 ml/min; Est GFR (African American) 83.7 ml/min; Est GFR (Non-African American) 72.3 ml/min; Magnesium 2.6 mg/dl (1.7-2.4); Phosphorus 3.5 mg/dl (2.5-4.9); Potassium 4.4 mmol/L (3.5-5.1)
--- NOTE | 2023-09-02 07:31 | Pulmonology Progress Note ---
Date of Service September 02, 2023 Assessment & Plan (1) Acute on chronic hypoxic respiratory failure: (2) Parainfluenza infection: (3) COPD exacerbation: (4) Fluid overload: (5) CHF (congestive heart failure), NYHA class III: (6) Pulmonary HTN: (7) ANGELES (obstructive sleep apnea): (8) Pulmonary sarcoidosis: Plan IMPRESSION: 52-year-old male with an extensive pulmonary history including pulmonary sarcoidosis, blastomycosis with respiratory failure requiring eventual tracheostomy and subsequent revision, COPD, chronic respiratory failure with hypoxia, and severe sleep apnea who presents in the setting of acute parainfluenza infection with associated acute on chronic hypoxic respiratory failure. CT chest 08/31/2023 personally reviewed: Fibrotic changes appreciated in the parenchyma bilaterally upper and lower lobes, more pronounced in the upper lobes Motion degraded study Cardiomegaly Calcified mediastinal and lymph nodes -- Acute on chronic hypoxic respiratory failure Likely secondary to COPD exacerbation from parainfluenza infection- Continue with supportive care Continue with aggressive pulmonary toileting including flutter valve and incentive spirometry. -- Pulmonary Hypertension - Continue with diuresis in the setting of Pulmonary HTN, hypoxia, Dyspnea. -- Obstructive sleep apnea - Continue with home BiPAP settings as tolerated. May require increasing nocturnal oxygen in the acutely ill setting. -- Pulmonary sarcoidosis he has been off of any medication for approximately a year. Used to be on methotrexate and prednisone in the past. -- Chronic Rhinosinusitis - Consider outpatient ENT referral and/or sinus imaging in the setting of recurrent sinus issues. Plan: Continue with budesonide and formoterol nebulized along with Incruse. Decrease Solu-Medrol to 40 mg every 12 Continue with hypertonic saline nebulized along with flutter valve and Mucinex Continue with Flonase and Benadryl 25 mg Continue with diuretics to keep the patient negative balance Continue with diuretics to keep the patient negative balance Keep O2 saturation between 90-92% given the history of pulmonary hypertension Continue with BiPAP nightly and as needed shortness of breath Please note the above document was generated using voice recognition software. It may contain grammatical, syntax or spelling errors.Any formal questions or concerns about the content, text or information contained within the body of this dictation should be directly addressed to the provider for clarification. Admission and Anticipated Discharge Date Admission Date: August 30, 2023 Subjective Patient seen and examined at bedside. No acute distress, notable symptoms overnight He said his feet feels better compared to yesterday He was saturating 98% on 5 L oxygen. I went down to 3 L. Cough is better controlled. Denies any chest pain, no chest tightness No nausea or vomiting Fair appetite Review of Systems 2 Review of Systems: All systems reviewed & are unremarkable except as noted in Subjective Physical Exam 2 Physical Exam: Constitutional: No acute distress HEENT: EOMI, PERRLA Respiratory system: Decreased air entry bilaterally, minimal expiratory wheeze bilaterally, improved from before, no rhonchi, positive crackles bilaterally CVS: S1-S2 positive, no murmurs or gallops, accentuated P2 Abdomen: Soft, nontender, nondistended, positive bowel sounds x4 Extremities: +2 pulses bilaterally radialis/ dorsalis pedis, no cyanosis, minimal pitting edema bilateral lower extremity Neuro: Awake alert oriented x3 Psych: Normal mood and affect G/U: No [place] Skin: no rashes, warm and dry Lymphatic: no cervical or axillary lymphadenopathy Results & Data Results & Data Vital Signs (Past 12 Hours) Vital Signs Temp Pulse Pulse Resp BP Pulse Ox O2 Del Method 09/02/23 07:20 72 16 100 BiPAP 09/02/23 03:34 36.4 C L 64 18 132/88 94 BiPAP 09/01/23 23:15 36.6 C 65 106/53 L 95 CPAP 09/01/23 22:44 66 09/01/23 20:45 76 22 104/56 L 97 Nasal Cannula 09/01/23 20:03 67 18 97 Nasal Cannula 09/01/23 20:00 Nasal Cannula 09/01/23 20:00 36.6 C O2 Flow Rate 09/02/23 07:20 4 09/02/23 03:34 5 09/01/23 23:15 5 09/01/23 22:44 09/01/23 20:45 5 09/01/23 20:03 5 09/01/23 20:00 5 09/01/23 20:00 Laboratory Results 09/02/23 06:11 09/02/23 06:11 PG Care Time/CCT Total # of Minutes Spent Total Time Spent with Patient: Total time spent is greater than 50% in coordination of care (as documented) at patient's floor/unit and/or counseling patient: Coding Level of Care Code 43080 SUB INP/OBS CARE MIN Diagnoses Acute on chronic hypoxic respiratory failure J96.21 Parainfluenza infection B34.8 COPD exacerbation J44.1 Fluid overload E87.70 CHF (congestive heart failure), NYHA class III I50.9 Pulmonary HTN I27.20 ANGELES (obstructive sleep apnea) G47.33 Pulmonary sarcoidosis D86.0
--- NOTE | 2023-09-02 17:16 | Hospitalist Progress Note ---
Date of Service September 02, 2023 Assessment & Plan (1) Acute on chronic hypoxic respiratory failure: Plan: Secondary to parainfluenza infection with history of sarcoid lung disease, sleep apnea, right-sided heart failure and COPD Condition has been improving slowly Appreciate pulmonary input and recommendation Will continue current management with steroid and bronchodilators Clinically much better and requiring 4 L to maintain saturation Solu-Medrol has been decreased to 40 mg every 12 hours Continue with nebulized bronchodilator and BiPAP at night Continue with torsemide and spironolactone to 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 Likely discharge in a day or 2 Parainfluenza Symptomatic management Has been getting better gradually (2) COPD exacerbation: Plan: Has been on steroid and bronchodilators Oxygen as needed with BiPAP Clinically better (3) URI (upper respiratory infection): (4) Pulmonary sarcoidosis: Plan: This is a 52-year-old male with PMH of COPD, sarcoidosis of lung, chronic respiratory failure on 4 to 5 L nasal cannula O2 at baseline (per pt), severe obstructive sleep apnea on bipap, history of chronic right-sided heart failure in setting of cor pulmonale, pulm HTN, 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 [facility] [place] type 2 diabetes, hypertension, depression, history of C. difficile and other medical problems listed below who presents from home feeling rundown with shortness of breath of the past 4 days [employer] and was found to have COPD exacerbation in setting of URI. He reported dry cough to begin with now with clear sputum, denied fever. Acute on chronic respiratory failure requiring high flow nasal cannula on admission (is on chronic 4 to 5 L nasal cannula oxygen at baseline) Endorsing recent URI with productive sputum, cough Respiratory viral panel positive for parainfluenza Afebrile, no leukocytosis, VBG pH of 7.49 Procalcitonin negative CXR with Cardiomegaly with evidence of congestive failure. Bilateral airspace opacities are similar to prior studies and may represent chronic scarring/fibrosis. Correlate clinically for evidence of a superimposed infectious/inflammatory pneumonitis Given 125mg solumedrol in ED - continue with 40mg Q8H, Duonebs QIDR, wean O2 to baseline as tolerated, Mucinex BID, Flutter valve Continue home Breo, spiriva inh Routine pulm consult -appreciate input and recommendation [place] [facility] [place] - no longer on methotrexate or prednisone f/u CT chest Monitoring off of antibiotic, low threshold for starting antibiotic. Has not been getting any treatment for sarcoidosis as of now Will need to follow-up with his public records officer as an outpatient (5) ANGELES (obstructive sleep apnea): Plan: On bipap HS with 6L NC O2 bled through HS (6) Right-sided heart failure: Plan: In setting of cor pulmonale, pulm HTN Appears euvolemic on exam, denies any recent BLE edema given 40mg IV lasix in ED BNP WNL Continue home diuretics with Torsemide 80mg BID, spironolactone TID Continue digoxin Due for cards follow up 09/06 No signs and symptoms of fluid overload (7) Hypokalemia: Plan: Initial K 3.1, replaced Continue home supplementation Monitor with daily BMP -remain stable (8) HTN (hypertension): Plan: Initially on lower side, now 119/73 Continue losartan, spironolactone, torsemide as above (9) Depression: Plan: Chronic, stable. Continue SSRI (10) DMII (diabetes mellitus, type 2): Plan: Well- controlled, last a1c 5.4 in 09/26 Hold home agents SSI while in-patient BSG AC HS DVT Ppx: SQ lovenox Code status: FULL PCP: Chang Dispo: Admitted to PCU Admission and Anticipated Discharge Date Admission Date: August 30, 2023 Subjective 09/01/2023 The patient was seen and examined in telemetry unit He has been feeling a little better but he still has significant cough and wheezing with shortness of breath Denies any chest pain and her palpitation No fever and or chills 09/02/2023 Patient was seen and examined in telemetry unit He has been feeling little better today Decreasing cough and decreasing shortness of breath Denies any fever and or chills Review of Systems Review of Systems: All systems reviewed and are unremarkable except as noted below Physical Exam Physical Exam: Sitting on a chair with moderate distress due to shortness of breath Constitutional: well developed, well nourished, + ill appearing and + obese Eyes: PERRL, conjunctivae normal, anicteric sclerae ENMT: external ear and nose normal, oropharynx normal Neck: trachea midline, no thyromegaly Respiratory: + respiratory distress (Mild to moderate distress at rest) Auscultation: + diminished lung sounds, + crackles and + wheezes Cardiovascular: Rate/Rhythm: regular rate and regular rhythm; not tachycardic Heart Sounds: normal S1 and normal S2; no murmur Extremities: + edema (Trace edema bilaterally) Gastrointestinal (Abdomen): Inspection/Auscultation: normal bowel sounds; abdomen not distended Percussion/Palpation: abdomen soft; abdomen nontender Neurologic: normal touch/pain/proprioception and moves all extremities; no focal motor deficits Lymphatic: no cervical or axillary lymphadenopathy Results & Data Results & Data Vital Signs (Past 12 Hours) Vital Signs Temp Pulse Pulse Resp BP Pulse Ox O2 Del Method 09/02/23 15:27 6 L 16 Nasal Cannula 09/02/23 15:17 36.6 C 62 18 108/63 96 Nasal Cannula 09/02/23 11:21 80 18 96 BiPAP 09/02/23 10:53 36.4 C L 64 18 109/69 95 BiPAP 09/02/23 08:42 67 09/02/23 08:11 36.7 C 63 20 102/65 95 CPAP 09/02/23 07:52 Nasal Cannula 09/02/23 07:20 72 16 100 BiPAP O2 Flow Rate 09/02/23 15:27 4 09/02/23 15:17 4 09/02/23 11:21 4 09/02/23 10:53 4 09/02/23 08:42 09/02/23 08:11 09/02/23 07:52 5 09/02/23 07:20 4 Laboratory Results Short CBC 09/02/23 Range/Units 06:11 WBC 9.40 (4.8-10.8) K/ul Hgb 15.2 (14.0-18.0) g/dl Hct 46.6 (42.0-52.0) % Plt Count 330 (130-400) K/uL BMP 09/02/23 06:11 Sodium 138 Potassium 4.4 Chloride 99 Carbon Dioxide 34 H BUN 32 H Creatinine 1.15 Glucose 138 H Calcium 8.7 Medications Administered Current Inpatient Medications Acetaminophen (Acetaminophen 325 Mg Tab) 650 mg PO Q4H PRN PRN Reason: Pain or Fever Stop: 09/29/23 19:58 Last Admin: 08/31/23 20:58 Dose: 650 mg Albuterol (Albut/Ipratrop 3mg/0.5mg Neb 3 Ml Vial) 3 ml NEB QIDR YAA; Protocol Stop: 09/29/23 19:24 Last Admin: 09/02/23 15:25 Dose: 3 ml Albuterol (Albuterol Hfa 8 Gm Inhaler) 2 puffs INH Q4 PRN PRN Reason: Dyspnea Stop: 09/29/23 19:58 Ascorbic Acid (Ascorbic Acid 500 Mg Tab) 500 mg PO DAILY YAA Stop: 09/30/23 08:59 Last Admin: 09/02/23 08:37 Dose: 500 mg Aspirin (Aspirin 81 Mg Ectab) 81 mg PO DAILY YAA Stop: 09/30/23 08:59 Last Admin: 09/02/23 08:42 Dose: 81 mg Budesonide (Budesonide 0.5 Mg/2 Ml Vial (Pulmicort)) 0.5 mg INH BIDR [facility] Stop: 09/30/23 18:59 Last Admin: 09/02/23 07:19 Dose: 0.5 mg Citalopram Hydrobromide (Citalopram 20 Mg Tab) 20 mg PO DAILY [facility] Stop: 09/30/23 08:59 Last Admin: 09/02/23 08:37 Dose: 20 mg Dextrose (Dextrose 50% 50 Ml Syringe) 25 - 50 ml IV UD PRN; Protocol PRN Reason: Hypoglycemia Protocol Stop: 09/29/23 20:14 Digoxin (Digoxin 0.125 Mg Tab) 0.125 mg PO DAILY [facility] Stop: 09/30/23 08:59 Last Admin: 09/02/23 08:42 Dose: 0.125 mg Diphenhydramine HCl (Diphenhydramine Capsule 25 Mg Cap) 25 mg PO BID [facility] Stop: 10/01/23 10:59 Last Admin: 09/02/23 08:42 Dose: 25 mg Empagliflozin (Empagliflozin 25 Mg Tab) 25 mg PO DAILY [facility] Stop: 09/30/23 08:59 Last Admin: 09/02/23 08:41 Dose: 25 mg Enoxaparin Sodium (Enoxaparin Inj 40 Mg/0.4 Ml Syr) 40 mg SQ Q24H [facility] Stop: 09/29/23 21:14 Last Admin: 09/01/23 21:08 Dose: 40 mg Ferrous Sulfate (Ferrous Sulfate 325 Mg Tab) 325 mg PO QAM YAA Stop: 09/30/23 08:59 Last Admin: 09/02/23 08:37 Dose: 325 mg Fluticasone Propionate (Fluticasone Propionate Na Spr 16 Gm Btl) 2 sprays NILDA DAILY YAA Stop: 09/30/23 08:59 Last Admin: 09/02/23 08:43 Dose: Not Given Fluticasone/Vilanterol (Fluticasone/Vilanterol 200/25mcg 14 Puffs/Inhaler) 1 puffs INH DAILY YAA Stop: 09/30/23 08:59 Folic Acid (Folic Acid 1 Mg Tab) 1 mg PO DAILY YAA Stop: 09/30/23 08:59 Last Admin: 09/02/23 08:42 Dose: 1 mg Formoterol Fumarate (Formoterol 20 Mcg/2 Ml Vial) 20 mcg INH BIDR YAA Stop: 09/30/23 18:59 Last Admin: 09/02/23 07:19 Dose: 20 mcg Glucagon (Glucagon For Inj 1 Mg Vial) 1 mg SQ UD PRN; Protocol PRN Reason: Hypoglycemia Protocol Stop: 09/29/23 20:14 Glucose (Glucose 10 Tab/Tube) 4 - 8 tab PO UD PRN; Protocol PRN Reason: Hypoglycemia Treatment Stop: 09/29/23 20:14 Glucose (Glucose 40% Gel 15 Gm Tube) 15 - 30 gm PO UD PRN; Protocol PRN Reason: Hypoglycemia Protocol Stop: 09/29/23 20:14 Guaifenesin (Guaifenesin 600 Mg Tabcr) 1,200 mg PO Q12 YAA Stop: 10/01/23 20:59 Last Admin: 09/02/23 08:39 Dose: 1,200 mg Methylprednisolone 40 mg/ (Syringe) 0.64 mls @ 1.5 mls/min IV Q12 YAA Stop: 10/02/23 20:59 Insulin Aspart (Insulin Aspart Per Unit Charge) 0 units SC ACHS YAA Stop: 09/29/23 20:59 Last Admin: 09/02/23 13:01 Dose: 5 units Lidocaine (Lidocaine 5% 1 Patch) 1 patch TD DAILY YAA Stop: 09/30/23 08:59 Last Admin: 09/02/23 08:38 Dose: Not Given Loratadine (Loratadine 10 Mg Tab) 10 mg PO DAILY PRN PRN Reason: allergies Stop: 09/29/23 19:58 Losartan Potassium (Losartan Potassium 25 Mg Tab) 25 mg PO DAILY YAA Stop: 09/30/23 08:59 Last Admin: 09/02/23 08:41 Dose: 25 mg Miscellaneous (Cromolyn 4 % Drops - Order Awaiting Action) 1 each N/A QS YAA Stop: 09/30/23 00:00 Last Admin: 09/02/23 17:05 Dose: Not Given Miscellaneous (Carbohydrates For Hypoglycemia ) 15 - 30 gm PO UD PRN PRN Reason: Hypoglycemia Protocol Stop: 09/29/23 20:14 Miscellaneous (Remove Lidoderm Patch) 1 each N/A DAILY@2100 [facility] Stop: 09/29/23 20:59 Last Admin: 09/01/23 21:08 Dose: 1 each Montelukast Sodium (Montelukast Sodium 10 Mg Tablet) 10 mg PO HS YAA Stop: 09/29/23 20:59 Last Admin: 09/01/23 21:11 Dose: 10 mg Multivitamins (Multivitamin Tab) 1 tab PO DAILY YAA Stop: 09/30/23 08:59 Last Admin: 09/02/23 08:38 Dose: 1 tab Ondansetron HCl (Ondansetron Inj 2 Mg/Ml 2 Ml Vial) 4 mg IV Q6H PRN PRN Reason: Nausea Stop: 09/29/23 19:58 Pantoprazole Sodium (Pantoprazole 40 Mg Tab) 40 mg PO QAM YAA Stop: 09/30/23 08:59 Last Admin: 09/02/23 08:41 Dose: 40 mg Polyethylene Glycol (Polyethylene (Miralax) 17 Gm Pack) 17 gm PO DAILY PRN PRN Reason: Constipation Stop: 09/29/23 19:58 Potassium Chloride (Potassium Chloride Crtab 20 Meq Tabcr) 20 meq PO BID YAA Stop: 09/29/23 20:59 Last Admin: 09/02/23 08:41 Dose: 20 meq Sodium Chloride (Sodium Chlor 7% 4 Ml Neb) 4 ml NEB BIDR YAA Stop: 09/30/23 18:59 Last Admin: 09/02/23 07:19 Dose: 4 ml Sodium Chloride (Sodium Chloride 0.65% Na Soln 45 Ml ([place])) 2 sprays NA TID PRN PRN Reason: Congestion Stop: 04/27/24 08:55 Spironolactone (Spironolactone 25 Mg Tab) 25 mg PO TID YAA Stop: 09/29/23 20:59 Last Admin: 09/02/23 12:59 Dose: 25 mg Tamsulosin HCl (Tamsulosin Hcl 0.4 Mg Cap) 0.4 mg PO DAILY YAA Stop: 09/30/23 08:59 Last Admin: 09/02/23 08:37 Dose: 0.4 mg Torsemide (Torsemide 20 Mg Tab) 80 mg PO BID YAA Stop: 09/30/23 08:59 Last Admin: 09/02/23 08:37 Dose: 80 mg Umeclidinium [place] (Umeclidinium [place] 62.5mcg/Blister 7 Puffs/Inhaler) 1 puffs INH DAILY YAA Stop: 09/30/23 08:59 Last Admin: 09/02/23 08:43 Dose: 1 puffs
[2023-09-02] MEDS: methylPREDNISolone 40 MG in SYRINGE 0 ML IV SCH (21:06)
--- NOTE | 2023-09-03 07:18 | Pulmonology Progress Note ---
Date of Service September 03, 2023 Assessment & Plan (1) Acute on chronic hypoxic respiratory failure: (2) Parainfluenza infection: (3) COPD exacerbation: (4) Fluid overload: (5) CHF (congestive heart failure), NYHA class III: (6) Pulmonary HTN: (7) ANGELES (obstructive sleep apnea): (8) Pulmonary sarcoidosis: Plan IMPRESSION: 52-year-old male with an extensive pulmonary history including pulmonary sarcoidosis, blastomycosis with respiratory failure requiring eventual tracheostomy and subsequent revision, COPD, chronic respiratory failure with hypoxia, and severe sleep apnea who presents in the setting of acute parainfluenza infection with associated acute on chronic hypoxic respiratory failure. CT chest 08/31/2023 personally reviewed: Fibrotic changes appreciated in the parenchyma bilaterally upper and lower lobes, more pronounced in the upper lobes Motion degraded study Cardiomegaly Calcified mediastinal and lymph nodes -- Acute on chronic hypoxic respiratory failure Likely secondary to COPD exacerbation from parainfluenza infection- Continue with supportive care Continue with aggressive pulmonary toileting including flutter valve and incentive spirometry. -- Pulmonary Hypertension - Continue with diuresis in the setting of Pulmonary HTN, hypoxia, Dyspnea. -- Obstructive sleep apnea - Continue with home BiPAP settings as tolerated. May require increasing nocturnal oxygen in the acutely ill setting. -- Pulmonary sarcoidosis he has been off of any medication for approximately a year. Used to be on methotrexate and prednisone in the past. -- Chronic Rhinosinusitis - Consider outpatient ENT referral and/or sinus imaging in the setting of recurrent sinus issues. Plan: Continue with budesonide and formoterol nebulized along with Incruse. Continue with Solu-Medrol to 40 mg every 12, starting tomorrow we can go down to on a daily basis Continue with hypertonic saline nebulized along with flutter valve and Mucinex. Consider hypertonic saline nebulized even on discharge Continue with Flonase and Benadryl 25 mg Continue with diuretics to keep the patient negative balance Continue with diuretics to keep the patient negative balance Keep O2 saturation between 90-92% given the history of pulmonary hypertension Continue with BiPAP nightly and as needed shortness of breath Case was discussed with Dr. Roman Please note the above document was generated using voice recognition software. It may contain grammatical, syntax or spelling errors.Any formal questions or concerns about the content, text or information contained within the body of this dictation should be directly addressed to the provider for clarification. Admission and Anticipated Discharge Date Admission Date: August 30, 2023 Subjective Patient seen and examined at bedside. No acute distress, vital signs Had a good night sleep. He just returned back from the washroom when I entered the room Said that he is feeling better. Still complains of chest tightness and difficulty bringing up the phlegm, it is more loose compared to last time. Denies any headache, no nausea vomiting Fair appetite Review of Systems 2 Review of Systems: All systems reviewed & are unremarkable except as noted in Subjective Physical Exam 2 Physical Exam: Constitutional: No acute distress HEENT: EOMI, PERRLA Respiratory system: Decreased air entry bilaterally, positive expiratory wheeze bilaterally, no rhonchi, positive crackles bilaterally CVS: S1-S2 positive, no murmurs or gallops, accentuated P2 Abdomen: Soft, nontender, nondistended, positive bowel sounds x4 Extremities: +2 pulses bilaterally radialis/ dorsalis pedis, no cyanosis, minimal pitting edema bilateral lower extremity Neuro: Awake alert oriented x3 Psych: Normal mood and affect G/U: No [place] Skin: no rashes, warm and dry Lymphatic: no cervical or axillary lymphadenopathy Results & Data Results & Data Vital Signs (Past 12 Hours) Vital Signs Temp Pulse Pulse Resp BP BP Pulse Ox 09/03/23 03:57 62 18 98/59 L 95 09/02/23 23:52 36.4 C L 64 22 95/50 L 96 09/02/23 22:00 63 09/02/23 19:54 09/02/23 19:43 62 20 95 09/02/23 19:42 36.4 C L 63 18 111/68 96 O2 Del Method O2 Flow Rate 09/03/23 03:57 CPAP 09/02/23 23:52 CPAP 09/02/23 22:00 09/02/23 19:54 Nasal Cannula 4 09/02/23 19:43 Nasal Cannula 4 09/02/23 19:42 Nasal Cannula 4 Laboratory Results 09/02/23 06:11 PG Care Time/CCT Total # of Minutes Spent Total Time Spent with Patient: Total time spent is greater than 50% in coordination of care (as documented) at patient's floor/unit and/or counseling patient: Coding Level of Care Code 80050 SUB INP/OBS CARE 2/35MIN Diagnoses Acute on chronic hypoxic respiratory failure J96.21 Parainfluenza infection B34.8 COPD exacerbation J44.1 Fluid overload E87.70 CHF (congestive heart failure), NYHA class III I50.9 Pulmonary HTN I27.20 ANGELES (obstructive sleep apnea) G47.33 Pulmonary sarcoidosis D86.0
[2023-09-03 07:20] LABS: Hematocrit (blood only) 48.7 % (42.0-52.0); Hemoglobin 15.8 g/dl (14.0-18.0); Immature Granulocytes # (auto) 0.03 K/uL (0.01-0.20); Immature Granulocytes % (auto) 0.4 %; Lymphocytes # (auto) 0.65 K/uL (1.20-3.40); Lymphocytes % (auto) 8.9 %; Mean Corpuscular Hemoglobin 30.9 pg (25.0-34.0); Mean Corpuscular Hgb Conc 32.4 g/dL (32.0-36.0); Mean Corpuscular Volume 95.1 fL (80.0-100.0); Mean Platelet Volume 8.8 fL (9.4-12.4); Monocytes # (auto) 0.55 K/uL (0.11-0.59); Monocytes % (auto) 7.6 %; Neutrophils # (auto) 6.05 K/uL (1.40-6.50); Neutrophils % (auto) 83.1 %; Platelet Count 307 K/uL (130-400); RDW Coefficient of Variation 14.2 % (11.5-14.5); RDW Standard Deviation 50.1 fL (36.4-46.3); Red Blood Count 5.12 M/uL (4.70-6.10); White Blood Count 7.28 K/ul (4.8-10.8)
[2023-09-03 07:44] LABS: BUN Creatinine Ratio 28.1 (10-20); Calcium 8.6 mg/dl (8.6-10.3); Creatinine Clr Calc Pharmacy 96.5 ml/min; Est GFR (African American) 84.6 ml/min; Magnesium 2.5 mg/dl (1.7-2.4); Potassium 3.9 mmol/L (3.5-5.1)
--- NOTE | 2023-09-03 15:06 | Hospitalist Progress Note ---
Date of Service September 03, 2023 Assessment & Plan (1) Acute on chronic hypoxic respiratory failure: Plan: Secondary to parainfluenza infection with history of sarcoid lung disease, sleep apnea, right-sided heart failure and COPD Condition has been improving slowly Appreciate pulmonary input and recommendation Will continue current management with steroid and bronchodilators Clinically much better and requiring 4 L to maintain saturation Solu-Medrol has been decreased to 40 mg every 12 hours Continue with nebulized bronchodilator and BiPAP at night Continue with torsemide and spironolactone to keep him on the enamel drier side Likely discharge in a day or 2 Still has significant wheezing without any more shortness of breath We will continue intravenous Solu-Medrol today and possible discharge tomorrow on tapered dose of steroid Parainfluenza Symptomatic management Has been getting better gradually Minimal cough (2) COPD exacerbation: Plan: Has been on steroid and bronchodilators Oxygen as needed with BiPAP Clinically better (3) URI (upper respiratory infection): (4) Pulmonary sarcoidosis: Plan: This is a 52-year-old male with PMH of COPD, sarcoidosis of lung, chronic respiratory failure on 4 to 5 L nasal cannula O2 at baseline (per pt), severe obstructive sleep apnea on bipap, history of chronic right-sided heart failure in setting of cor pulmonale, pulm HTN, 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 Dsouza at [facility] [place], type 2 diabetes, hypertension, depression, history of C. difficile and other medical problems listed below who presents from home feeling rundown with shortness of breath of the past 4 days [employer] and was found to have COPD exacerbation in setting of URI. He reported dry cough to begin with now with clear sputum, denied fever. Acute on chronic respiratory failure requiring high flow nasal cannula on admission (is on chronic 4 to 5 L nasal cannula oxygen at baseline) Endorsing recent URI with productive sputum, cough Respiratory viral panel positive for parainfluenza Afebrile, no leukocytosis, VBG pH of 7.49 Procalcitonin negative CXR with Cardiomegaly with evidence of congestive failure. Bilateral airspace opacities are similar to prior studies and may represent chronic scarring/fibrosis. Correlate clinically for evidence of a superimposed infectious/inflammatory pneumonitis Given 125mg solumedrol in ED - continue with 40mg Q8H, Duonebs QIDR, wean O2 to baseline as tolerated, Mucinex BID, Flutter valve Continue home Breo, spiriva inh Routine pulm consult -appreciate input and recommendation Follows with Dr. Dsouza at [facility] [place] for pulm - no longer on methotrexate or prednisone f/u CT chest Monitoring off of antibiotic, low threshold for starting antibiotic. 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 (5) ANGELES (obstructive sleep apnea): Plan: On bipap HS with 6L NC O2 bled through HS (6) Right-sided heart failure: Plan: In setting of cor pulmonale, pulm HTN Appears euvolemic on exam, denies any recent BLE edema given 40mg IV lasix in ED BNP WNL Continue home diuretics with Torsemide 80mg BID, spironolactone TID Continue digoxin Due for cards follow up 09/06 No signs and symptoms of fluid overload We will continue the current doses of diuretics (7) Hypokalemia: Plan: Initial K 3.1, replaced Continue home supplementation Monitor with daily BMP -remain stable (8) HTN (hypertension): Plan: Initially on lower side, now 119/73 Continue losartan, spironolactone, torsemide as above (9) Depression: Plan: Chronic, stable. Continue SSRI (10) DMII (diabetes mellitus, type 2): Plan: Well- controlled, last a1c 5.4 in 09/26 Hold home agents SSI while in-patient BSG AC HS DVT Ppx: SQ lovenox Code status: FULL PCP: Chang Dispo: Admitted to PCU Admission and Anticipated Discharge Date Admission Date: August 30, 2023 Subjective 09/01/2023 The patient was seen and examined in telemetry unit He has been feeling a little better but he still has significant cough and wheezing with shortness of breath Denies any chest pain and her palpitation No fever and or chills 09/02/2023 Patient was seen and examined in telemetry unit He has been feeling little better today Decreasing cough and decreasing shortness of breath Denies any fever and or chills 09/03/2023 The patient was seen and examined in telemetry unit He has been feeling much better but he still has significant wheezing No more shortness of breath at rest Saturating normally on 4 L Review of Systems Review of Systems: All systems reviewed and are unremarkable except as noted below Physical Exam Physical Exam: Sitting on a chair with moderate distress due to shortness of breath Constitutional: well developed, well nourished, + ill appearing and + obese Eyes: PERRL, conjunctivae normal, anicteric sclerae ENMT: external ear and nose normal, oropharynx normal Neck: trachea midline, no thyromegaly Respiratory: + respiratory distress (Mild to moderate distress at rest) Auscultation: + diminished lung sounds, + crackles and + wheezes Cardiovascular: Rate/Rhythm: regular rate and regular rhythm; not tachycardic Heart Sounds: normal S1 and normal S2; no murmur Extremities: + edema (Trace edema bilaterally) Gastrointestinal (Abdomen): Inspection/Auscultation: normal bowel sounds; abdomen not distended Percussion/Palpation: abdomen soft; abdomen nontender Neurologic: normal touch/pain/proprioception and moves all extremities; no focal motor deficits Lymphatic: no cervical or axillary lymphadenopathy Results & Data Results & Data Vital Signs (Past 12 Hours) Vital Signs Temp Pulse Pulse Resp BP BP Pulse Ox 09/03/23 11:30 36.4 C L 67 19 116/70 95 09/03/23 10:50 78 18 96 09/03/23 08:34 70 09/03/23 08:00 09/03/23 07:54 36.4 C L 58 L 23 121/75 96 09/03/23 07:52 57 L 18 96 09/03/23 03:57 62 18 98/59 L 95 O2 Del Method O2 Flow Rate 09/03/23 11:30 Nasal Cannula 4 09/03/23 10:50 Nasal Cannula 4 09/03/23 08:34 09/03/23 08:00 Nasal Cannula 4 09/03/23 07:54 CPAP 09/03/23 07:52 BiPAP 4 09/03/23 03:57 CPAP Laboratory Results Short CBC 09/03/23 Range/Units 06:57 WBC 7.28 (4.8-10.8) K/ul Hgb 15.8 (14.0-18.0) g/dl Hct 48.7 (42.0-52.0) % Plt Count 307 (130-400) K/uL BMP 09/03/23 06:57 Sodium 138 Potassium 3.9 Chloride 97 L Carbon Dioxide 34 H BUN 32 H Creatinine 1.14 Glucose 170 H Calcium 8.6 Medications Administered Current Inpatient Medications Acetaminophen (Acetaminophen 325 Mg Tab) 650 mg PO Q4H PRN PRN Reason: Pain or Fever Stop: 09/29/23 19:58 Last Admin: 08/31/23 20:58 Dose: 650 mg Albuterol (Albut/Ipratrop 3mg/0.5mg Neb 3 Ml Vial) 3 ml NEB QIDR YAA; Protocol Stop: 09/29/23 19:24 Last Admin: 09/03/23 10:49 Dose: 3 ml Albuterol (Albuterol Hfa 8 Gm Inhaler) 2 puffs INH Q4 PRN PRN Reason: Dyspnea Stop: 09/29/23 19:58 Ascorbic Acid (Ascorbic Acid 500 Mg Tab) 500 mg PO DAILY [facility] Stop: 09/30/23 08:59 Last Admin: 09/03/23 08:35 Dose: 500 mg Aspirin (Aspirin 81 Mg Ectab) 81 mg PO DAILY [facility] Stop: 09/30/23 08:59 Last Admin: 09/03/23 08:38 Dose: 81 mg Budesonide (Budesonide 0.5 Mg/2 Ml Vial (Pulmicort)) 0.5 mg INH BIDR [facility] Stop: 09/30/23 18:59 Last Admin: 09/03/23 07:51 Dose: 0.5 mg Citalopram Hydrobromide (Citalopram 20 Mg Tab) 20 mg PO DAILY [facility] Stop: 09/30/23 08:59 Last Admin: 09/03/23 08:36 Dose: 20 mg Dextrose (Dextrose 50% 50 Ml Syringe) 25 - 50 ml IV UD PRN; Protocol PRN Reason: Hypoglycemia Protocol Stop: 09/29/23 20:14 Digoxin (Digoxin 0.125 Mg Tab) 0.125 mg PO DAILY [facility] Stop: 09/30/23 08:59 Last Admin: 09/03/23 08:34 Dose: 0.125 mg Diphenhydramine HCl (Diphenhydramine Capsule 25 Mg Cap) 25 mg PO BID [facility] Stop: 10/01/23 10:59 Last Admin: 09/03/23 08:38 Dose: 25 mg Empagliflozin (Empagliflozin 25 Mg Tab) 25 mg PO DAILY [facility] Stop: 09/30/23 08:59 Last Admin: 09/03/23 08:34 Dose: 25 mg Enoxaparin Sodium (Enoxaparin Inj 40 Mg/0.4 Ml Syr) 40 mg SQ Q24H YAA Stop: 09/29/23 21:14 Last Admin: 09/02/23 21:11 Dose: 40 mg Ferrous Sulfate (Ferrous Sulfate 325 Mg Tab) 325 mg PO QAM [facility] Stop: 09/30/23 08:59 Last Admin: 09/03/23 08:38 Dose: 325 mg Fluticasone Propionate (Fluticasone Propionate Na Spr 16 Gm Btl) 2 sprays NILDA DAILY [facility] Stop: 09/30/23 08:59 Last Admin: 09/03/23 08:39 Dose: 2 sprays Fluticasone/Vilanterol (Fluticasone/Vilanterol 200/25mcg 14 Puffs/Inhaler) 1 puffs INH DAILY [facility] Stop: 09/30/23 08:59 Folic Acid (Folic Acid 1 Mg Tab) 1 mg PO DAILY [facility] Stop: 09/30/23 08:59 Last Admin: 09/03/23 08:38 Dose: 1 mg Formoterol Fumarate (Formoterol 20 Mcg/2 Ml Vial) 20 mcg INH BIDR [facility] Stop: 09/30/23 18:59 Last Admin: 09/03/23 07:50 Dose: 20 mcg Glucagon (Glucagon For Inj 1 Mg Vial) 1 mg SQ UD PRN; Protocol PRN Reason: Hypoglycemia Protocol Stop: 09/29/23 20:14 Glucose (Glucose 10 Tab/Tube) 4 - 8 tab PO UD PRN; Protocol PRN Reason: Hypoglycemia Treatment Stop: 09/29/23 20:14 Glucose (Glucose 40% Gel 15 Gm Tube) 15 - 30 gm PO UD PRN; Protocol PRN Reason: Hypoglycemia Protocol Stop: 09/29/23 20:14 Guaifenesin (Guaifenesin 600 Mg Tabcr) 1,200 mg PO Q12 [facility] Stop: 10/01/23 20:59 Last Admin: 09/03/23 08:40 Dose: 1,200 mg Methylprednisolone 40 mg/ (Syringe) 0.64 mls @ 1.5 mls/min IV Q12 [facility] Stop: 10/02/23 20:59 Last Admin: 09/03/23 08:37 Dose: 1.5 mls/min Insulin Aspart (Insulin Aspart Per Unit Charge) 0 units SC ACHS [facility] Stop: 09/29/23 20:59 Last Admin: 09/03/23 12:28 Dose: 5 units Lidocaine (Lidocaine 5% 1 Patch) 1 patch TD DAILY [facility] Stop: 09/30/23 08:59 Last Admin: 09/03/23 08:35 Dose: Not Given Loratadine (Loratadine 10 Mg Tab) 10 mg PO DAILY PRN PRN Reason: allergies Stop: 09/29/23 19:58 Losartan Potassium (Losartan Potassium 25 Mg Tab) 25 mg PO DAILY [facility] Stop: 09/30/23 08:59 Last Admin: 09/03/23 08:35 Dose: 25 mg Miscellaneous (Cromolyn 4 % Drops - Order Awaiting Action) 1 each N/A QS [facility] Stop: 09/30/23 00:00 Last Admin: 09/03/23 08:31 Dose: Not Given Miscellaneous (Carbohydrates For Hypoglycemia ) 15 - 30 gm PO UD PRN PRN Reason: Hypoglycemia Protocol Stop: 09/29/23 20:14 Miscellaneous (Remove Lidoderm Patch) 1 each N/A DAILY@2100 [facility] Stop: 09/29/23 20:59 Last Admin: 09/02/23 21:09 Dose: 1 each Montelukast Sodium (Montelukast Sodium 10 Mg Tablet) 10 mg PO HS [facility] Stop: 09/29/23 20:59 Last Admin: 09/02/23 21:10 Dose: 10 mg Multivitamins (Multivitamin Tab) 1 tab PO DAILY [facility] Stop: 09/30/23 08:59 Last Admin: 09/03/23 08:34 Dose: 1 tab Ondansetron HCl (Ondansetron Inj 2 Mg/Ml 2 Ml Vial) 4 mg IV Q6H PRN PRN Reason: Nausea Stop: 09/29/23 19:58 Pantoprazole Sodium (Pantoprazole 40 Mg Tab) 40 mg PO QAM [facility] Stop: 09/30/23 08:59 Last Admin: 09/03/23 08:36 Dose: 40 mg Polyethylene Glycol (Polyethylene (Miralax) 17 Gm Pack) 17 gm PO DAILY PRN PRN Reason: Constipation Stop: 09/29/23 19:58 Potassium Chloride (Potassium Chloride Crtab 20 Meq Tabcr) 20 meq PO BID [facility] Stop: 09/29/23 20:59 Last Admin: 09/03/23 08:36 Dose: 20 meq Sodium Chloride (Sodium Chlor 7% 4 Ml Neb) 4 ml NEB BIDR [facility] Stop: 09/30/23 18:59 Last Admin: 09/03/23 07:50 Dose: 4 ml Sodium Chloride (Sodium Chloride 0.65% Na Soln 45 Ml ([place])) 2 sprays NA TID PRN PRN Reason: Congestion Stop: 10/01/23 08:55 Spironolactone (Spironolactone 25 Mg Tab) 25 mg PO TID [facility] Stop: 09/29/23 20:59 Last Admin: 09/03/23 13:36 Dose: 25 mg Tamsulosin HCl (Tamsulosin Hcl 0.4 Mg Cap) 0.4 mg PO DAILY [facility] Stop: 09/30/23 08:59 Last Admin: 09/03/23 08:34 Dose: 0.4 mg Torsemide (Torsemide 20 Mg Tab) 80 mg PO BID [facility] Stop: 09/30/23 08:59 Last Admin: 09/03/23 08:33 Dose: 80 mg Umeclidinium Lysite (Umeclidinium Lysite 62.5mcg/Blister 7 Puffs/Inhaler) 1 puffs INH DAILY [facility] Stop: 09/30/23 08:59 Last Admin: 09/03/23 08:33 Dose: 1 puffs
--- NOTE | 2023-09-04 07:12 | Pulmonology Progress Note ---
Date of Service September 04, 2023 Assessment & Plan (1) Acute on chronic hypoxic respiratory failure: (2) Parainfluenza infection: (3) COPD exacerbation: (4) Fluid overload: (5) CHF (congestive heart failure), NYHA class III: (6) Pulmonary HTN: (7) ANGELES (obstructive sleep apnea): (8) Pulmonary sarcoidosis: Plan IMPRESSION: 52-year-old male with an extensive pulmonary history including pulmonary sarcoidosis, blastomycosis with respiratory failure requiring eventual tracheostomy and subsequent revision, COPD, chronic respiratory failure with hypoxia, and severe sleep apnea who presents in the setting of acute parainfluenza infection with associated acute on chronic hypoxic respiratory failure. CT chest 08/31/2023 personally reviewed: Fibrotic changes appreciated in the parenchyma bilaterally upper and lower lobes, more pronounced in the upper lobes Motion degraded study Cardiomegaly Calcified mediastinal and lymph nodes -- Acute on chronic hypoxic respiratory failure Likely secondary to COPD exacerbation from parainfluenza infection- Continue with supportive care Continue with aggressive pulmonary toileting including flutter valve and incentive spirometry. -- Pulmonary Hypertension - Continue with diuresis in the setting of Pulmonary HTN, hypoxia, Dyspnea. -- Obstructive sleep apnea - Continue with home BiPAP settings as tolerated. May require increasing nocturnal oxygen in the acutely ill setting. -- Pulmonary sarcoidosis he has been off of any medication for approximately a year. Used to be on methotrexate and prednisone in the past. -- Chronic Rhinosinusitis - Consider outpatient ENT referral and/or sinus imaging in the setting of recurrent sinus issues. Plan: Continue with budesonide and formoterol nebulized along with Incruse. Taper prednisone 40 mg for 3 days followed by 20 mg for 4 days and then stop Continue with hypertonic saline nebulized along with flutter valve and Mucinex. Consider hypertonic saline nebulized even on discharge Continue with Flonase and Benadryl 25 mg. DC Benadryl on discharge and go back to levocetirizine on an as-needed basis Continue with diuretics to keep the patient negative balance Continue with diuretics to keep the patient negative balance Keep O2 saturation between 90-92% given the history of pulmonary hypertension Continue with BiPAP nightly and as needed shortness of breath Case was discussed with Dr. Colon No further recommendation from pulmonary perspective, will sign off Please call directly with any questions Please note the above document was generated using voice recognition software. It may contain grammatical, syntax or spelling errors.Any formal questions or concerns about the content, text or information contained within the body of this dictation should be directly addressed to the provider for clarification. Admission and Anticipated Discharge Date Admission Date: August 30, 2023 Subjective Patient seen and examined at bedside. No acute distress, notable since overnight He was saturating 96-97% on 4 L nasal cannula. Overall he stated he is feeling better Has been bringing up phlegm without any issues now No nausea or vomiting Good appetite. No dizziness, no headache Review of Systems 2 Review of Systems: All systems reviewed & are unremarkable except as noted in Subjective Physical Exam 2 Physical Exam: Constitutional: No acute distress HEENT: EOMI, PERRLA Respiratory system: Decreased air entry bilaterally, minimal expiratory wheeze bilaterally, no rhonchi, positive crackles bilaterally CVS: S1-S2 positive, no murmurs or gallops, accentuated P2 Abdomen: Soft, nontender, nondistended, positive bowel sounds x4 Extremities: +2 pulses bilaterally radialis/ dorsalis pedis, no cyanosis, minimal pitting edema bilateral lower extremity Neuro: Awake alert oriented x3 Psych: Normal mood and affect G/U: No [place] Skin: no rashes, warm and dry Lymphatic: no cervical or axillary lymphadenopathy Results & Data Results & Data Vital Signs (Past 12 Hours) Vital Signs Temp Pulse Pulse Resp BP Pulse Ox O2 Del Method 09/04/23 03:47 36.5 C 59 L 20 118/70 90 CPAP 09/03/23 23:49 36.6 C 60 20 110/70 95 Nasal Cannula 09/03/23 22:00 68 09/03/23 19:57 Nasal Cannula 09/03/23 19:43 36.6 C 74 20 121/70 97 Nasal Cannula 09/03/23 19:37 62 20 96 Nasal Cannula O2 Flow Rate 09/04/23 03:47 09/03/23 23:49 4 09/03/23 22:00 09/03/23 19:57 4 09/03/23 19:43 09/03/23 19:37 4 Laboratory Results 09/03/23 06:57 09/03/23 06:57 PG Care Time/CCT Total # of Minutes Spent Total Time Spent with Patient: Total time spent is greater than 50% in coordination of care (as documented) at patient's floor/unit and/or counseling patient: Coding Level of Care Code 34159 SUB INP/OBS CARE 235MIN Diagnoses Acute on chronic hypoxic respiratory failure J96.21 Parainfluenza infection B34.8 COPD exacerbation J44.1 Fluid overload E87.70 CHF (congestive heart failure), NYHA class III I50.9 Pulmonary HTN I27.20 ANGELES (obstructive sleep apnea) G47.33 Pulmonary sarcoidosis D86.0
[2023-09-04 08:26] LABS: BUN Creatinine Ratio 27.5 (10-20); Calcium 8.7 mg/dl (8.6-10.3); Creatinine Clr Calc Pharmacy 100.3 ml/min; Est GFR (African American) 96.8 ml/min; Est GFR (Non-African American) 83.5 ml/min; Potassium 3.8 mmol/L (3.5-5.1)
--- NOTE | 2023-09-04 12:03 | Hospitalist Progress Note ---
Date of Service September 04, 2023 Assessment & Plan (1) Acute on chronic hypoxic respiratory failure: Plan: Secondary to parainfluenza infection with history of sarcoid lung disease, sleep apnea, right-sided heart failure and COPD Condition has been improving slowly Appreciate pulmonary input and recommendation Will continue current management with steroid and bronchodilators Clinically much better and requiring 4 L to maintain saturation Solu-Medrol has been decreased to 40 mg every 12 hours Continue with nebulized bronchodilator and BiPAP at night Continue with torsemide and spironolactone to 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 Likely discharge in a day or 2 Still has significant wheezing without any more shortness of breath We will continue intravenous Solu-Medrol today and possible discharge tomorrow on tapered dose of steroid Will start prednisone with a short reducing course as mentioned on discharge today Clinically much better Parainfluenza Symptomatic management Has been getting better gradually Minimal cough without any other respiratory symptoms He is back to his baseline regarding use of oxygen at home (2) COPD exacerbation: Plan: Has been on steroid and bronchodilators Oxygen as needed with BiPAP Clinically better (3) URI (upper respiratory infection): (4) Pulmonary sarcoidosis: Plan: This is a 52-year-old male with PMH of COPD, sarcoidosis of lung, chronic respiratory failure on 4 to 5 L nasal cannula O2 at baseline (per pt), severe obstructive sleep apnea on bipap, history of chronic right-sided heart failure in setting of cor pulmonale, pulm HTN, 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 Dsouza at [facility] [place] [facility] [place], type 2 diabetes, hypertension, depression, history of C. difficile and other medical problems listed below who presents from home feeling rundown with shortness of breath of the past 4 days BAKERY CHEF and was found to have COPD exacerbation in setting of URI. He reported dry cough to begin with now with clear sputum, denied fever. Acute on chronic respiratory failure requiring high flow nasal cannula on admission (is on chronic 4 to 5 L nasal cannula oxygen at baseline) Endorsing recent URI with productive sputum, cough Respiratory viral panel positive for parainfluenza Afebrile, no leukocytosis, VBG pH of 7.49 Procalcitonin negative CXR with Cardiomegaly with evidence of congestive failure. Bilateral airspace opacities are similar to prior studies and may represent chronic scarring/fibrosis. Correlate clinically for evidence of a superimposed infectious/inflammatory pneumonitis Given 125mg solumedrol in ED - continue with 40mg Q8H, Duonebs QIDR, wean O2 to baseline as tolerated, Mucinex BID, Flutter valve Continue home Breo, spiriva inh Routine pulm consult -appreciate input and recommendation Follows with Dr. Dsouza at [facility] [place]m - no longer on methotrexate or prednisone f/u CT chest Monitoring off of antibiotic, low threshold for starting antibiotic. Has not been getting any treatment for sarcoidosis as of now Will need to follow-up with his sap portal architect as an outpatient (5) ANGELES (obstructive sleep apnea): Plan: On bipap HS with 6L NC O2 bled through HS Continue with BiPAP at home (6) Right-sided heart failure: Plan: In setting of cor pulmonale, pulm HTN Appears euvolemic on exam, denies any recent BLE edema given 40mg IV lasix in ED BNP WNL Continue home diuretics with Torsemide 80mg BID, spironolactone TID Continue digoxin Due for cards follow up 09/06 No signs and symptoms of fluid overload We will continue the current doses of diuretics Will continue current diuretic doses (7) Hypokalemia: Plan: Initial K 3.1, replaced Continue home supplementation Monitor with daily BMP -remain stable (8) HTN (hypertension): Plan: Initially on lower side, now 119/73 Continue losartan, spironolactone, torsemide as above (9) Depression: Plan: Chronic, stable. Continue SSRI (10) DMII (diabetes mellitus, type 2): Plan: Well- controlled, last a1c 5.4 in 09/26 Hold home agents SSI while in-patient BSG AC HS DVT Ppx: SQ lovenox Code status: FULL PCP: Chang Dispo: Admitted to PCU Admission and Anticipated Discharge Date Admission Date: August 30, 2023 Subjective 09/01/2023 The patient was seen and examined in telemetry unit He has been feeling a little better but he still has significant cough and wheezing with shortness of breath Denies any chest pain and her palpitation No fever and or chills 09/02/2023 Patient was seen and examined in telemetry unit He has been feeling little better today Decreasing cough and decreasing shortness of breath Denies any fever and or chills 09/03/2023 The patient was seen and examined in telemetry unit He has been feeling much better but he still has significant wheezing No more shortness of breath at rest Saturating normally on 4 L 09/04/2023 The patient was seen and examined in telemetry unit He has been much better today with minimal cough and minimal wheezing Has been back to his baseline with the use of oxygen He has been ambulating without any difficulties He will be discharged home this afternoon Review of Systems Review of Systems: All systems reviewed and are unremarkable except as noted below Physical Exam Physical Exam: Sitting on a chair with moderate distress due to shortness of breath Constitutional: well developed, well nourished, + ill appearing and + obese Eyes: PERRL, conjunctivae normal, anicteric sclerae ENMT: external ear and nose normal, oropharynx normal Neck: trachea midline, no thyromegaly Respiratory: + respiratory distress (Mild to moderate distress at rest) Auscultation: + diminished lung sounds, + crackles and + wheezes Cardiovascular: Rate/Rhythm: regular rate and regular rhythm; not tachycardic Heart Sounds: normal S1 and normal S2; no murmur Extremities: + edema (Trace edema bilaterally) Gastrointestinal (Abdomen): Inspection/Auscultation: normal bowel sounds; abdomen not distended Percussion/Palpation: abdomen soft; abdomen nontender Musculoskeletal: No acute arthritis involving any of the joint Neurologic: normal touch/pain/proprioception and moves all extremities; no focal motor deficits Lymphatic: no cervical or axillary lymphadenopathy Results & Data Results & Data Vital Signs (Past 12 Hours) Vital Signs Temp Pulse Pulse Resp BP Pulse Ox O2 Del Method 09/04/23 11:20 63 18 96 Nasal Cannula 09/04/23 10:52 36.7 C 66 18 115/65 96 Nasal Cannula 09/04/23 09:22 62 09/04/23 08:16 36.4 C L 58 L 19 109/70 97 Nasal Cannula 09/04/23 08:00 62 09/04/23 07:23 58 L 18 93 CPAP 09/04/23 03:47 36.5 C 59 L 20 118/70 90 CPAP O2 Flow Rate 09/04/23 11:20 4 09/04/23 10:52 4.0 09/04/23 09:22 09/04/23 08:16 4 09/04/23 08:00 09/04/23 07:23 4 09/04/23 03:47 Laboratory Results [facility] 09/04/23 07:42 Sodium 140 Potassium 3.8 Chloride 97 L Carbon Dioxide 38 H BUN 28 H Creatinine 1.02 Glucose 118 H Calcium 8.7 Medications Administered Current Inpatient Medications Acetaminophen (Acetaminophen 325 Mg Tab) 650 mg PO Q4H PRN PRN Reason: Pain or Fever Stop: 09/29/23 19:58 Last Admin: 08/31/23 20:58 Dose: 650 mg Albuterol (Albut/Ipratrop 3mg/0.5mg Neb 3 Ml Vial) 3 ml NEB QIDR YAA; Protocol Stop: 09/29/23 19:24 Last Admin: 09/04/23 11:20 Dose: 3 ml Albuterol (Albuterol Hfa 8 Gm Inhaler) 2 puffs INH Q4 PRN PRN Reason: Dyspnea Stop: 09/29/23 19:58 Ascorbic Acid (Ascorbic Acid 500 Mg Tab) 500 mg PO DAILY [facility] Stop: 09/30/23 08:59 Last Admin: 09/04/23 09:21 Dose: 500 mg Aspirin (Aspirin 81 Mg Ectab) 81 mg PO DAILY [facility] Stop: 09/30/23 08:59 Last Admin: 09/04/23 09:15 Dose: 81 mg Budesonide (Budesonide 0.5 Mg/2 Ml Vial (Pulmicort)) 0.5 mg INH BIDR [facility] Stop: 09/30/23 18:59 Last Admin: 09/04/23 07:22 Dose: 0.5 mg Citalopram Hydrobromide (Citalopram 20 Mg Tab) 20 mg PO DAILY [facility] Stop: 09/30/23 08:59 Last Admin: 09/04/23 09:21 Dose: 20 mg Dextrose (Dextrose 50% 50 Ml Syringe) 25 - 50 ml IV UD PRN; Protocol PRN Reason: Hypoglycemia Protocol Stop: 09/29/23 20:14 Digoxin (Digoxin 0.125 Mg Tab) 0.125 mg PO DAILY [facility] Stop: 09/30/23 08:59 Last Admin: 09/04/23 09:22 Dose: 0.125 mg Diphenhydramine HCl (Diphenhydramine Capsule 25 Mg Cap) 25 mg PO BID [facility] Stop: 10/01/23 10:59 Last Admin: 03/31/24 09:15 Dose: 25 mg Empagliflozin (Empagliflozin 25 Mg Tab) 25 mg PO DAILY YAA Stop: 09/30/23 08:59 Last Admin: 09/04/23 09:21 Dose: 25 mg Enoxaparin Sodium (Enoxaparin Inj 40 Mg/0.4 Ml Syr) 40 mg SQ Q24H YAA Stop: 09/29/23 21:14 Last Admin: 09/03/23 21:20 Dose: 40 mg Ferrous Sulfate (Ferrous Sulfate 325 Mg Tab) 325 mg PO QAM YAA Stop: 09/30/23 08:59 Last Admin: 09/04/23 09:16 Dose: 325 mg Fluticasone Propionate (Fluticasone Propionate Na Spr 16 Gm Btl) 2 sprays NILDA DAILY YAA Stop: 09/30/23 08:59 Last Admin: 09/04/23 09:17 Dose: 2 sprays Fluticasone/Vilanterol (Fluticasone/Vilanterol 200/25mcg 14 Puffs/Inhaler) 1 puffs INH DAILY YAA Stop: 09/30/23 08:59 Folic Acid (Folic Acid 1 Mg Tab) 1 mg PO DAILY YAA Stop: 09/30/23 08:59 Last Admin: 09/04/23 09:16 Dose: 1 mg Formoterol Fumarate (Formoterol 20 Mcg/2 Ml Vial) 20 mcg INH BIDR YAA Stop: 09/30/23 18:59 Last Admin: 09/04/23 07:22 Dose: 20 mcg Glucagon (Glucagon For Inj 1 Mg Vial) 1 mg SQ UD PRN; Protocol PRN Reason: Hypoglycemia Protocol Stop: 09/29/23 20:14 Glucose (Glucose 10 Tab/Tube) 4 - 8 tab PO UD PRN; Protocol PRN Reason: Hypoglycemia Treatment Stop: 09/29/23 20:14 Glucose (Glucose 40% Gel 15 Gm Tube) 15 - 30 gm PO UD PRN; Protocol PRN Reason: Hypoglycemia Protocol Stop: 09/29/23 20:14 Guaifenesin (Guaifenesin 600 Mg Tabcr) 1,200 mg PO Q12 YAA Stop: 10/01/23 20:59 Last Admin: 09/04/23 09:15 Dose: 1,200 mg Methylprednisolone 40 mg/ (Syringe) 0.64 mls @ 1.5 mls/min IV Q12 YAA Stop: 10/02/23 20:59 Last Admin: 03/31/24 09:19 Dose: 1.5 mls/min Insulin Aspart (Insulin Aspart Per Unit Charge) 0 units SC ACHS YAA Stop: 09/29/23 20:59 Last Admin: 09/04/23 09:14 Dose: 5 units Lidocaine (Lidocaine 5% 1 Patch) 1 patch TD DAILY YAA Stop: 09/30/23 08:59 Last Admin: 09/04/23 09:20 Dose: Not Given Loratadine (Loratadine 10 Mg Tab) 10 mg PO DAILY PRN PRN Reason: allergies Stop: 09/29/23 19:58 Losartan Potassium (Losartan Potassium 25 Mg Tab) 25 mg PO DAILY YAA Stop: 09/30/23 08:59 Last Admin: 09/04/23 09:20 Dose: 25 mg Miscellaneous (Cromolyn 4 % Drops - Order Awaiting Action) 1 each N/A QS YAA Stop: 09/30/23 00:00 Last Admin: 09/04/23 09:14 Dose: Not Given Miscellaneous (Carbohydrates For Hypoglycemia ) 15 - 30 gm PO UD PRN PRN Reason: Hypoglycemia Protocol Stop: 09/29/23 20:14 Miscellaneous (Remove Lidoderm Patch) 1 each N/A DAILY@2100 [facility] Stop: 09/29/23 20:59 Last Admin: 09/03/23 21:22 Dose: 1 each Montelukast Sodium (Montelukast Sodium 10 Mg Tablet) 10 mg PO HS YAA Stop: 09/29/23 20:59 Last Admin: 09/03/23 21:20 Dose: 10 mg Multivitamins (Multivitamin Tab) 1 tab PO DAILY YAA Stop: 09/30/23 08:59 Last Admin: 09/04/23 09:21 Dose: 1 tab Ondansetron HCl (Ondansetron Inj 2 Mg/Ml 2 Ml Vial) 4 mg IV Q6H PRN PRN Reason: Nausea Stop: 09/29/23 19:58 Pantoprazole Sodium (Pantoprazole 40 Mg Tab) 40 mg PO QAM YAA Stop: 09/30/23 08:59 Last Admin: 09/04/23 09:20 Dose: 40 mg Polyethylene Glycol (Polyethylene (Miralax) 17 Gm Pack) 17 gm PO DAILY PRN PRN Reason: Constipation Stop: 09/29/23 19:58 Potassium Chloride (Potassium Chloride Crtab 20 Meq Tabcr) 20 meq PO BID YAA Stop: 09/29/23 20:59 Last Admin: 09/04/23 09:15 Dose: 20 meq Sodium Chloride (Sodium Chlor 7% 4 Ml Neb) 4 ml NEB BIDR YAA Stop: 09/30/23 18:59 Last Admin: 09/04/23 07:22 Dose: 4 ml Sodium Chloride (Sodium Chloride 0.65% Na Soln 45 Ml (Quay)) 2 sprays NA TID PRN PRN Reason: Congestion Stop: 10/01/23 08:55 Spironolactone (Spironolactone 25 Mg Tab) 25 mg PO TID YAA Stop: 09/29/23 20:59 Last Admin: 09/04/23 09:16 Dose: 25 mg Tamsulosin HCl (Tamsulosin Hcl 0.4 Mg Cap) 0.4 mg PO DAILY YAA Stop: 09/30/23 08:59 Last Admin: 09/04/23 09:15 Dose: 0.4 mg Torsemide (Torsemide 20 Mg Tab) 80 mg PO BID YAA Stop: 09/30/23 08:59 Last Admin: 09/04/23 09:18 Dose: 80 mg Umeclidinium [place] (Umeclidinium [place] 62.5mcg/Blister 7 Puffs/Inhaler) 1 puffs INH DAILY YAA Stop: 09/30/23 08:59 Last Admin: 09/04/23 09:16 Dose: 1 puffs
--- NOTE | 2023-09-04 15:51 | Discharge Summary ---
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 Dsouza at [facility] [place], type 2 diabetes, hypertension, depression, history of C. difficile and other medical problems listed below who presents from home feeling rundown with shortness of breath of the past 4 days. Patient states he has had nasal conge stion and cough and feels like he has phlegm stuck in the back of his throat and upper chest. Denies any fever or chills. Was taking Mucinex at home until he ran out last evening. Has been using nebulizers routinely, where he normally just uses as needed. Also states that at baseline, he can sit comfortably on 2 L of oxygen but has been persistently short of breath over the past 2 days and has required at least 4 L nasal cannula oxygen and still feels short of breath, prompting evaluation at ED. Has some pleuritic chest pain and wheezing. No nausea, vomiting, abdominal pain, dysuria, diarrhea or constipation. States that he has not noted any increase swelling in lower legs and has been taking diuretics as prescribed, including this morning's torsemide dose. Admission Exam Per Admitting Provider Physical Exam: General Appearance: WD/WN, vitals as above, NAD, sitting up on side of bed, high flow o2, pleasant, some conversational dyspnea Head: normocephalic, atraumatic Eyes: normal inspection, PERRL, conjunctivae normal, anicteric sclerae ENT: external ear and nose normal, oropharynx normal Neck: normal visual inspection, trachea midline, no thyromegaly Respiratory: diminished breath sounds, diffuse wheezing throughout lung moser. Cardiovascular: regular rate, rhythm, normal peripheral pulses, no BLE edema. Vessels: no JVD Chest: normal inspection of chest Abdomen/GI: normal bowel sounds, soft, nontender, no hepatosplenomegaly Extremities/Musculoskeletal: no cyanosis or clubbing, extremities motor strength 5/5 Neurologic: PERRL, EOMI, accommodation nl, no face palsy, no dysarthria, CN's II-XI intact bilaterally and moves all extremities Psychiatric: A+Ox3, euthymic affect Skin: no rashes, normal color, warm/dry Principal Diagnosis Acute on chronic hypoxic respiratory failure, parainfluenza infection, COPD exacerbation, CHF, pulmonary hypertension, ANGELES on BiPAP at home, pulmonary sarcoidosis Discharge Exam Sitting on a chair with moderate distress due to shortness of breath Constitutional well developed, well nourished, + ill appearing and + obese Eyes PERRL, conjunctivae normal, anicteric sclerae ENMT external ear and nose normal, oropharynx normal Neck trachea midline, no thyromegaly Respiratory + respiratory distress (Mild to moderate distress at rest) Auscultation: + diminished lung sounds, + crackles and + wheezes Cardiovascular Rate/Rhythm: regular rate and regular rhythm; not tachycardic Heart Sounds: normal S1 and normal S2; no murmur Extremities: + edema (Trace edema bilaterally) Gastrointestinal (Abdomen) Inspection/Auscultation: normal bowel sounds; abdomen not distended Percussion/Palpation: abdomen soft; abdomen nontender Neurologic normal touch/pain/proprioception and moves all extremities; no focal motor deficits Lymphatic no cervical or axillary lymphadenopathy Discharge Data Allergies Allergy/AdvReac Type Severity Reaction Status Date / Time doxycycline AdvReac Severe Vomiting Verified 03/02/22 19:11 Consultations 08/30/23 16:54 ED Decision to Admit Stat 08/31/23 07:00 Consult Pulmonology Routine Ordered Studies 08/31/23 07:24 CT chest diagnostic wo con Routine Hospital Course (1) Acute on chronic hypoxic respiratory failure: Secondary to parainfluenza infection with history of sarcoid lung disease, sleep apnea, right-sided heart failure and COPD Condition has been improving slowly Appreciate pulmonary input and recommendation Will continue current management with steroid and bronchodilators Clinically much better and requiring 4 L to maintain saturation Solu-Medrol has been decreased to 40 mg every 12 hours Continue with nebulized bronchodilator and BiPAP at night Continue with torsemide and spironolactone to keep him on the enamel drier side Likely discharge in a day or 2 Still has significant wheezing without any more shortness of breath We will continue intravenous Solu-Medrol today and possible discharge tomorrow on tapered dose of steroid Will start prednisone with a short reducing course as mentioned on discharge today Clinically much better Parainfluenza Symptomatic management Has been getting better gradually Minimal cough without any other respiratory symptoms He is back to his baseline regarding use of oxygen at home (2) COPD exacerbation: Has been on steroid and bronchodilators Oxygen as needed with BiPAP Clinically better (3) URI (upper respiratory infection): (4) Pulmonary sarcoidosis: This is a 52-year-old male with PMH of COPD, sarcoidosis of lung, chronic respiratory failure on 4 to 5 L nasal cannula O2 at baseline (per pt), severe obstructive sleep apnea on bipap, history of chronic right-sided heart failure in setting of cor pulmonale, pulm HTN, 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 Dsouza at [facility] [place], type 2 diabetes, hypertension, depression, history of C. difficile and other medical problems listed below who presents from home feeling rundown with shortness of breath of the past 4 days [employer] and was found to have COPD exacerbation in setting of URI. He reported dry cough to begin with now with clear sputum, denied fever. Acute on chronic respiratory failure requiring high flow nasal cannula on admission (is on chronic 4 to 5 L nasal cannula oxygen at baseline) Endorsing recent URI with productive sputum, cough Respiratory viral panel positive for parainfluenza Afebrile, no leukocytosis, VBG pH of 7.49 Procalcitonin negative CXR with Cardiomegaly with evidence of congestive failure. Bilateral airspace opacities are similar to prior studies and may represent chronic scarring/fibrosis. Correlate clinically for evidence of a superimposed infectious/inflammatory pneumonitis Given 125mg solumedrol in ED - continue with 40mg Q8H, Duonebs QIDR, wean O2 to baseline as tolerated, Mucinex BID, Flutter valve Continue home Breo, spiriva inh Routine pulm consult -appreciate input and recommendation Follows with Dr. Dsouza at [facility] [place] for pulm - no longer on methotrexate or prednisone f/u CT chest Monitoring off of antibiotic, low threshold for starting antibiotic. Has not been getting any treatment for sarcoidosis as of now Will need to follow-up with his animal stunner as an outpatient (5) ANGELES (obstructive sleep apnea): On bipap HS with 6L NC O2 bled through HS Continue with BiPAP at home (6) Right-sided heart failure: In setting of cor pulmonale, pulm HTN Appears euvolemic on exam, denies any recent BLE edema given 40mg IV lasix in ED BNP WNL Continue home diuretics with Torsemide 80mg BID, spironolactone TID Continue digoxin Due for cards follow up 09/06 No signs and symptoms of fluid overload We will continue the current doses of diuretics Will continue current diuretic doses (7) Hypokalemia: Initial K 3.1, replaced Continue home supplementation Monitor with daily BMP -remain stable (8) HTN (hypertension): Initially on lower side, now 119/73 Continue losartan, spironolactone, torsemide as above (9) Depression: Chronic, stable. Continue SSRI (10) DMII (diabetes mellitus, type 2): Well- controlled, last a1c 5.4 in 09/26 Hold home agents SSI while in-patient BSG AC HS DVT Ppx: SQ lovenox Code status: FULL PCP: Chang Dispo: Admitted to PCU Total Time Total Time Spent Total Time Spent (In Minutes): 40 minutes Discharge Plan Discharge Items Patient Disposition: Home - Self-Care Reason For Visit: HYPOXIA 2/2 CHF, POSS PNA Discharge Diagnosis: Acute on chronic hypoxic respiratory failure, parainfluenza infection, COPD exacerbation, CHF, pulmonary hypertension, ANGELES on BiPAP at home, pulmonary sarcoidosis Condition on Discharge: Fair Activity: Resume your previous activity Non-emergency contact: Primary Care Provider Call non-emergency contact if: you have any medication questions and your symptoms worsen Follow-up/Referrals: Andrzej Downing MD [Primary Care Provider] - (Your doctor's office will give you call on Tuesday with an appointment within 7 days) Diet: Carb Consistent or DM2 Addtl Attending Provider Instructions: Please take precautions to avoid falls Take your medications as advised Please give appointment with your healthcare providers as advised You will need to see your animal stunner as an outpatient within 2 to 3 weeks Pending Studies at Discharge: No Stand-Alone Forms: My UpDown, Smoking Cessation Medications and DC Order Prescriptions: New sodium chloride 7 % Solution For Nebulization 4 ml NEB BIDR Qty: 240 0RF guaifenesin [Mucinex] 600 mg Tablet Extended Release 12hr 1,200 mg PO Q12 Qty: 60 0RF prednisone 20 mg tablet 20 mg PO DAILY Qty: 8 0RF Rx Instructions: 2 po daily for 2 days and then 1 po daily for 4 days .Stop after that. Continued torsemide 20 mg tablet 80 mg PO BID Rx Instructions: 4 tab po bid citalopram 20 mg tablet 20 mg PO DAILY potassium chloride 20 mEq tablet,ER particles/crystals 20 meq PO BID tamsulosin 0.4 mg capsule 0.4 mg PO DAILY losartan 25 mg tablet 25 mg PO DAILY omeprazole 20 mg capsule,delayed release(DR/EC) 20 mg PO QAM folic acid 1 mg tablet 1 mg PO DAILY digoxin [Digitek] 125 mcg (0.125 mg) tablet 125 mcg PO DAILY metformin 500 mg tablet extended release 24 hr 1,000 mg PO DAILY Jardiance 25 mg tablet 25 mg PO DAILY Ozempic 1 mg/dose (2 mg/1.5 mL) pen injector 1 mg SUBCUT WK Rx Instructions: Wednesdays spironolactone 25 mg tablet 25 mg PO TID ferrous sulfate 325 mg (65 mg iron) Tablet 325 mg PO QAM Rx Instructions: take with breakfast aspirin [Claire Chewable Aspirin] 81 mg Tablet,Chewable 81 mg PO DAILY fluticasone furoate-vilanterol [Breo Ellipta] 200-25 mcg/dose blister with device 1 ea INHALATION DAILY montelukast 10 mg tablet 10 mg PO HS multivitamin Tablet 1 tab PO DAILY albuterol sulfate 2.5 mg /3 mL (0.083 %) Solution For Nebulization 2.5 mg INHALATION UD PRN (Reason: Dyspnea) ascorbic acid (vitamin C) [Vitamin C] 250 mg Tablet 500 - 750 mg PO DAILY albuterol sulfate 90 mcg/actuation Hfa Aerosol Inhaler 2 puff INHALATION Q4 PRN (Reason: Dyspnea) metolazone 2.5 mg Tablet 2.5 mg PO UD Rx Instructions: take 1 tablet 30 minutes before AM torsemide only when directed cromolyn 4 % Drops 1 drp OPB QID PRN (Reason: allergy or itching) azelastine 137 mcg (0.1 %) Aerosol,[place] 1 spray INTRANASAL BID Rx Instructions: administer into each nostril fluticasone propionate 50 mcg/actuation [place],Suspension 2 spray INTRANASAL DAILY Rx Instructions: administer into each nostril levocetirizine 5 mg Tablet 5 mg PO DAILY PRN (Reason: Allergy Symptoms) acetaminophen 325 mg Tablet 650 mg PO Q4H PRN (Reason: pain) Qty: 30 0RF lidocaine 4 % adhesive patch,medicated 1 patch topical DAILY Qty: 15 0RF Rx Instructions: may leave on for up to 12 hrs loratadine 10 mg Tablet 10 mg PO DAILY PRN (Reason: allergies) Spiriva Respimat 2.5 mcg/actuation Mist 2 puff INHALATION DAILY Discharge Orders: Discharge Order (Routine); Ordered 09/04/23 Ordered By: Anai Colon Discharge Order- CHF (Routine); Ordered 09/04/23 Ordered By: Anai Colon Admission Data Admit Date/Time: 08/30/23 17:22 Attending Provider: Anai Colon Admit Provider: Coral Null Primary Care Provider: Andrzej Downing Other Providers: Coral Null; Prabha Carrion Rishikesh Other Interventions: Discharge Summary Assessment (RN) Last Done: 09/04/23 12:43
== END 2023-09-04 13:33 | disposition home or self-care (01) | DRG 865 ==
LOC: ED 14:22 → SUATTDRO 17:22 → 4W 17:22

== ENCOUNTER 2023-09-08 03:35 | Inpatient (IN) ==
--- NOTE | 2023-09-08 04:49 | Emergency Department Note ---
Impression & Plan [id number] respiratory failure, Pneumonia, Sarcoidosis, COPD exacerbation, Parainfluenza infection, Pulmonary HTN ED Provider Note NAME: SCOTTIE CALIX AGE: 52 SEX: M : 1970 ARRIVES VIA: Ambulance INFORMANT: Patient ED PROVIDER(S): Jefferson Bowie MD CHIEF COMPLAINT: Shortness of breath PLAN: Disposition: Admit MEDICAL DECISION MAKING: The patient is a pleasant 52-year-old gentleman with a past medical history of sarcoidosis, chronic hypoxic respiratory failure, COPD, CHF/right-sided heart failure, pulmonary hypertension, diabetes,, acid reflux, hypertension, hyperlipidemia who presents to emergency department via EMS for worsening shortness of breath since this afternoon which she reports began after being outside in the rain which she feels may have triggered his lung disease. He reports has been doing well after his recent discharge from this facility on 09/03 when he was admitted for acute on chronic respiratory failure in setting of a parainfluenza type III infection. Patient reports he even had an outpatient cardiology appointment for which she felt he was doing well. Patient denies any increased weight gain/fluid retention. Denies any fevers. Reports he has had productive cough. Of note, the patient did arrive to emergency department during time of high volume, acuity and prolonged emergency department waiting times. On my evaluation the patient is uncomfortable afebrile with respiratory rate in the mid 20s-30s with heart rate in the 110s and vital signs otherwise stable. Patient initially was placed on nonrebreather on arrival due to work of breathing and was transitioned to oxime mask but still with increased work of breathing, tachypnea. Patient exhibits decreased breath sounds of bilateral lung moser with underlying wheeze with prolonged expiration. He appears euvolemic. EKG without overt acute ischemia. Chest x-ray demonstrates cardiomegaly without radiographic evidence of congestive failure. Note is made of multiple bilateral airspace opacities within both lungs which the clinical context is suspicious for pneumonia and better characterized on CTA of the chest. WBC 23K with neutrophil predominance and slight left shift. Hemoglobin hematocrit are 17 and 50, respectively in the setting of history of COPD. May reflect a component of hemoconcentration. VBG is unremarkable. Chemistry without metabolic acidosis. Potassium 3.0 and magnesium 1.7, low normal. Initial high-sensitivity troponin was 23.9, improved to 17.7. BNP is not elevated. Procalcitonin was elevated at 1.52 consistent with suspected bacterial pneumonia. Respiratory viral panel/[employer] remains positive for parainfluenza 3. CTA of the chest was performed demonstrates pulmonary arterial hypertension without pulmonary emboli. Pneumonia is further characterized as patchy multifocal pneumonia predominate throughout the left lung. Chronic pleural effusions are described. Additional prior granulomatous disease with scarring consistent with the patient's sarcoidosis. On evaluation patient did have some improvement in work of breathing and bronchospasm after initial treatment with DuoNeb and Solu-Medrol. Initially plan was to place the patient on BiPAP but given his improvement this was deferred and patient was treated with hour-long DuoNeb. Given the patient's worsening symptoms pneumonia and leukocytosis blood cultures were obtained and treatment initiated with cefepime, Flagyl and vancomycin given recent hospitalization. Gentle IV fluid hydration was provided with 500 cc of normal saline and 30 cc/kg was deferred in setting of patient's history of CHF and otherwise stable blood pressure and normal lactic acid. Patient does agree with plan for admission for further management. [facility] will [facility] the patient for admission. Further management per admitting team. Triage Nursing notes reviewed and agree them. Prior/external medical records reviewed Vital Signs: reviewed Differential diagnosis: Reactive airway disease, pneumonia, pneumothorax, COPD, CHF, infections, cardiac ischemia, pulmonary embolism, musculoskeletal, gastrointestinal, as well as other pathologies. ER treatment provided: See below. Diagnostics interpreted by me: ECG: Sinus tachycardia with frequent PVCs, 104 bpm, right ventricular hypertrophy, ST and T wave abnormality, no overt ST elevation or depression, QTc 502, QRS 108. Cardiac Monitoring: An order for continuous cardiac monitoring was placed and demonstrated Sinus tachycardia with frequent PVCs, 104 bpm. Laboratory studies: See below Imaging studies: See below Consultation(s): Case was [facility] who will evaluate the patient for admission. HPI: The patient is a pleasant 52-year-old gentleman with a past medical history of sarcoidosis, chronic hypoxic respiratory failure, COPD, CHF/right-sided heart failure, pulmonary hypertension, diabetes,, acid reflux, hypertension, hyperlipidemia who presents to emergency department via EMS for worsening shortness of breath since this afternoon which she reports began after being outside in the rain which she feels may have triggered his lung disease. He reports has been doing well after his recent discharge from this facility on 09/03 when he was admitted for acute on chronic respiratory failure in setting of a parainfluenza type III infection. Patient reports he even had an outpatient cardiology appointment for which she felt he was doing well. Patient denies any increased weight gain/fluid retention. Denies any fevers. Reports he has had productive cough. ROS: See above HPI for pertinent positives & negatives. A total of 10 systems reviewed and were otherwise negative. VITALS:See Below PHYSICAL EXAMINATION: GENERAL: Awake, alert, uncomfortable-appearing, in mild respiratory distress. HENT: Normocephalic, atraumatic. Oropharynx unremarkable. EYES: Normal conjunctiva. Sclera non-icteric. NECK: Supple. No nuchal rigidity. FROM. No JVD. RESPIRATORY: Decreased breath sounds of bilateral lung moser with underlying wheeze with prolonged expiration. Mild increased work of breathing. CARDIAC: Tachycardic rate, normal rhythm. Extremities warm and well perfused. Pulses equal. ABDOMEN: Soft, non-distended. No tenderness to palpation. No rebound or guarding. No masses. MUSCULOSKELETAL: Chest examination reveals no tenderness. The back is symmetrical on inspection without obvious abnormality. There is no CVA tenderness to palpation. No joint edema. LOWER EXTREMITIES: Calves are equal size bilaterally and non-tender. No edema. No discoloration. NEURO: Normal sensorium. No sensory or motor deficits noted. SKIN: No rash or jaundice noted. ED COURSE: Critical Care: I have personally spent greater than 45 minutes of critical care time in the direct management of this patient. This includes bedside care, interpretation of diagnostic studies, and testing, discussion with consultants, patient, and family members, and other required patient management activities. This 45 minutes is in excess of all separately billable procedures. Jefferson Bowie MD Past Med/Surg History Medical History (Updated 09/08/23 @ 12:56 by Jefferson Bowie MD) BPH (benign prostatic hyperplasia) DMII (diabetes mellitus, type 2) CHF (congestive heart failure), NYHA class III Pulmonary blastomycosis Chronic respiratory failure Pulmonary HTN HTN (hypertension) Right-sided heart failure ANGELES (obstructive sleep apnea) Pulmonary sarcoidosis Depression Surgical History H/O right heart catheterization [facility], 2020 S/P bronchoscopy Hx of tonsillectomy Family History Other Cancer Sarcoidosis Social History Smoking Status: Never smoker Tobacco Type: Smokeless Tobacco (Dip or Chew) Second Hand Exposure: No; Do You Dip or Chew Tobacco: Yes; Tobacco Cessation Education Requested by Patient: No Hx Alcohol Use: Yes Alcohol type: beer Hx Substance Use: No Preferred Language: Arabic Communication Ability: Effective Extended Day Teacher Required: No Beliefs That Will Affect Care: None marital status: Single Current Living Situation: Alone How many Children do You have: 0 Other Information That Helps Us Care for You: No Feels Safe at Home: Yes Assistive Devices: BiPap, Glasses, Nebulizer and Oxygen - Continuous Allergies Allergies Allergy/AdvReac Type Severity Reaction Status Date / Time doxycycline AdvReac Severe Vomiting Verified 09/08/23 08:00 Home Meds Home Medications Medication Instructions Recorded Confirmed aspirin 81 mg chewable tablet 81 mg PO QAM 10/08/19 09/08/23 (Claire Chewable Low Dose Aspirin) citalopram 20 mg tablet 20 mg PO QAM 10/08/19 09/08/23 digoxin 125 mcg (0.125 mg) tablet 125 mcg PO QAM 10/08/19 09/08/23 (Digitek) empagliflozin 25 mg tablet 25 mg PO QAM 10/08/19 09/08/23 (Jardiance) ferrous sulfate 325 mg (65 mg 325 mg PO QAM 10/08/19 09/08/23 iron) tablet folic acid 1 mg tablet 1 mg PO QAM 10/08/19 09/08/23 losartan 25 mg tablet 25 mg PO QAM 10/08/19 09/08/23 metformin 500 mg tablet,extended 1,000 mg PO QAM 10/08/19 09/08/23 release 24 hr omeprazole 20 mg capsule,delayed 20 mg PO QAM 10/08/19 09/08/23 release potassium chloride 20 mEq 20 meq PO BID 10/08/19 09/08/23 tablet,extended release(part/cryst) spironolactone 25 mg tablet 25 mg PO TID 10/08/19 09/08/23 tamsulosin 0.4 mg capsule 0.4 mg PO DAILY 10/08/19 09/08/23 torsemide 20 mg tablet 80 mg PO BID 10/08/19 09/08/23 albuterol sulfate 2.5 mg/3 mL 2.5 mg inhalation DAILY PRN Dyspnea 03/02/22 09/08/23 (0.083 %) solution for nebulization albuterol sulfate 90 mcg/actuation 2 puff inhalation Q4H PRN Dyspnea 03/02/22 09/08/23 aerosol inhaler ascorbic acid (vitamin C) 250 mg 500 mg PO QAM 03/02/22 09/08/23 tablet (Vitamin C) cromolyn 4 % eye drops 1 drp OPB QID PRN allergy or 03/02/22 09/08/23 itching fluticasone furoate 200 1 ea inhalation QAM 03/02/22 09/08/23 mcg-vilanterol 25 mcg/dose inhalation powder (Breo Ellipta) fluticasone propionate 50 2 spray intranasal QAM 03/02/22 09/08/23 mcg/actuation nasal spray,suspension levocetirizine 5 mg tablet 5 mg PO DAILY PRN Allergy Symptoms 03/02/22 09/08/23 metolazone 2.5 mg tablet 2.5 mg PO UD 03/02/22 09/08/23 montelukast 10 mg tablet 10 mg PO HS 03/02/22 09/08/23 multivitamin 1 tab PO DAILY 03/02/22 09/08/23 loratadine 10 mg tablet 10 mg PO DAILY PRN allergies 08/30/23 09/08/23 tiotropium bromide 2.5 2 puff inhalation DAILY 08/30/23 09/08/23 mcg/actuation mist for inhalation (Spiriva Respimat) guaifenesin 600 mg tablet, 600 mg PO Q12 PRN mucus 09/08/23 09/08/23 extended release 12 hr (Mucinex) prednisone 20 mg tablet 0 mg PO DAILY 09/08/23 09/08/23 semaglutide 1 mg/dose (4 mg/3 mL) 4 mg subcut WK 09/08/23 09/08/23 subcutaneous pen injector (Ozempic) Previous Rx's Medication Instructions Recorded acetaminophen 325 mg tablet 650 mg (2 x 325 mg) PO Q4H PRN 03/04/22 pain #30 tabs sodium chloride 7 % for 4 ml NEB BIDR #240 mL 09/04/23 nebulization Results & Data (ED) Vital Signs Vital Signs - 24 hr 09/08/23 04:00 09/08/23 04:00 09/08/23 04:21 Temperature 36.8 C Temperature Source Oral Pulse Rate 112 H 123 H Pulse Rate [Apical] Pulse Rhythm Pulse Rhythm [Apical] Respiratory Rate 21 Respiratory Effort / Characteristics Spontaneous Labored Short of Breath Respiratory Pattern Rapid/Deep Blood Pressure 105/84 Blood Pressure [Right Arm] Blood Pressure Mean 91 Blood Pressure Mean [Right Arm] Blood Pressure Position [Right Arm] Pulse Oximetry 96 Oxygen Delivery Method Non-rebreather Non-rebreather Oxygen Flow Rate 15 15 Sepsis Recent Fever Within 48 Hours No Sepsis New/Unexplained Change in Mental Status No Sepsis Action Taken by Nursing No Action Required 09/08/23 05:13 09/08/23 05:54 09/08/23 05:54 Temperature Temperature Source Pulse Rate 98 H Pulse Rate [Apical] 98 H Pulse Rhythm Regular Pulse Rhythm [Apical] Regular Respiratory Rate 24 24 Respiratory Effort / Characteristics Spontaneous Respiratory Pattern Regular Blood Pressure Blood Pressure [Right Arm] 146/98 H Blood Pressure Mean Blood Pressure Mean [Right Arm] 114 Blood Pressure Position [Right Arm] Sitting Pulse Oximetry 96 95 95 Oxygen Delivery Method Non-rebreather Oxymask Oxymask Oxygen Flow Rate 10 10 10 Sepsis Recent Fever Within 48 Hours Sepsis New/Unexplained Change in Mental Status Sepsis Action Taken by Nursing 09/08/23 07:00 Temperature Temperature Source Pulse Rate Pulse Rate [Apical] 87 Pulse Rhythm Pulse Rhythm [Apical] Respiratory Rate 19 Respiratory Effort / Characteristics Spontaneous Respiratory Pattern Blood Pressure Blood Pressure [Right Arm] 132/89 Blood Pressure Mean Blood Pressure Mean [Right Arm] 103 Blood Pressure Position [Right Arm] Pulse Oximetry 92 Oxygen Delivery Method Oxymask Oxygen Flow Rate 10 Sepsis Recent Fever Within 48 Hours Sepsis New/Unexplained Change in Mental Status Sepsis Action Taken by Nursing Laboratory Data Attestation: I reviewed the patient's lab results. 09/08/23 04:50 09/08/23 04:50 Lab Results 09/08/23 09/08/23 09/08/23 Range/Units 04:17 04:50 06:46 WBC 23.02 H (4.8-10.8) K/ul RBC 5.47 (4.70-6.10) M/uL Hgb 17.2 (14.0-18.0) g/dl Hct 50.2 (42.0-52.0) % MCV 91.8 (80.0-100.0) fL MCH 31.4 (25.0-34.0) pg MCHC 34.3 (32.0-36.0) g/dL RDW Std Deviation 47.7 H (36.4-46.3) fL RDW Coeff of María Elena 14.0 (11.5-14.5) % Plt Count 362 (130-400) K/uL MPV 8.4 L (9.4-12.4) fL Immature Gran % (Auto) 0.9 % Neut % (Auto) 88.3 % Lymph % (Auto) 4.0 % Jewell % (Auto) 6.6 % Eos % (Auto) 0.1 % Baso % (Auto) 0.1 % Neut # (Auto) 20.30 H (1.40-6.50) K/uL Lymph # (Auto) 0.93 L (1.20-3.40) K/uL Jewell # (Auto) 1.52 H (0.11-0.59) K/uL Eos # (Auto) 0.03 (0.00-0.50) K/uL Baso # (Auto) 0.03 (0.00-0.20) K/uL Immature Gran # (Auto) 0.21 H (0.01-0.20) K/uL PT 11.3 (9.0-12.0) Seconds INR 1.0 (0.9-1.1) VBG pH 7.45 H (7.36-7.41) VBG pCO2 50 (38-50) mmHg VBG pO2 64 mmHg VBG HCO3 35 mmol/L VBG O2 Saturation 92.7 % VBG Base Excess 9.2 mEq/L Sodium 133 L (136-145) mmol/L Potassium 3.0 L (3.5-5.1) mmol/L Chloride 92 L (98-107) mmol/L Carbon Dioxide 30 (21-32) mmol/L Anion Gap 11 (3-11) BUN 26 H (6-23) mg/dl Creatinine 1.15 (0.6-1.4) mg/dl Est Cr Clr Drug Dosing 90.5 ml/min Est GFR ( Amer) 83.7 ml/min Est GFR (Non-Af Amer) 72.3 ml/min BUN/Creatinine Ratio 22.6 H (10-20) Glucose 165 H (70-99(Fasting)) mg/dl Lactate (0.4-2.0) mmol/L Calcium 8.9 (8.6-10.3) mg/dl Phosphorus 3.2 (2.5-4.9) mg/dl Magnesium 1.7 (1.7-2.4) mg/dl Total Bilirubin 0.9 (0.2-1.0) mg/dl AST 14 (13-39) U/L ALT 15 (7-52) U/L Alkaline Phosphatase 45 (34-104) U/L Troponin I High Sens 23.9 H 17.7 D (0-20) pg/ml B-Natriuretic Peptide 29 (0-100) pg/ml Total Protein 7.4 (6.0-8.3) gm/dl Albumin 3.9 (3.4-5.0) gm/dl Globulin 3.5 (2.5-4.0) gm/dl Albumin/Globulin Ratio 1.1 (0.9-2) Lipase 19 (11-82) U/L Procalcitonin (0-0.5) ng/ml Adenovirus (PCR) Not Detected (NotDetected) B. pertussis DNA (PCR) Not Detected (NotDetected) B.parapertussis DNA PCR Not Detected (NotDetected) C. pneumoniae DNA (PCR) Not Detected (NotDetected) Coronavirus OC43 (PCR) Not Detected (NotDetected) Coronavirus HKU1 (PCR) Not Detected (NotDetected) Coronavirus 229E (PCR) Not Detected (NotDetected) SARS-CoV-2 (PCR) Not Detected (NotDetected) Coronavirus NL63 (PCR) Not Detected (NotDetected) Human Metapneumovir PCR Not Detected (NotDetected) Influenza Type A (PCR) Not Detected (NotDetected) Influenza Type B (PCR) Not Detected (NotDetected) M. pneumoniae (PCR) Not Detected (NotDetected) Parainfluenza 1 (PCR) Not Detected (NotDetected) Parainfluenza 2 (PCR) Not Detected (NotDetected) Parainfluenza 3 (PCR) DETECTED A (NotDetected) Parainfluenza 4 (PCR) Not Detected (NotDetected) RSV (PCR) Not Detected (NotDetected) Entero/Rhino (PCR) Not Detected (NotDetected) 09/08/23 Range/Units 07:03 WBC (4.8-10.8) K/ul RBC (4.70-6.10) M/uL Hgb (14.0-18.0) g/dl Hct (42.0-52.0) % MCV (80.0-100.0) fL MCH (25.0-34.0) pg MCHC (32.0-36.0) g/dL RDW Std Deviation (36.4-46.3) fL RDW Coeff of María Elena (11.5-14.5) % Plt Count (130-400) K/uL MPV (9.4-12.4) fL Immature Gran % (Auto) % Neut % (Auto) % Lymph % (Auto) % Jewell % (Auto) % Eos % (Auto) % Baso % (Auto) % Neut # (Auto) (1.40-6.50) K/uL Lymph # (Auto) (1.20-3.40) K/uL Jewell # (Auto) (0.11-0.59) K/uL Eos # (Auto) (0.00-0.50) K/uL Baso # (Auto) (0.00-0.20) K/uL Immature Gran # (Auto) (0.01-0.20) K/uL PT (9.0-12.0) Seconds INR (0.9-1.1) VBG pH (7.36-7.41) VBG pCO2 (38-50) mmHg VBG pO2 mmHg VBG HCO3 mmol/L VBG O2 Saturation % VBG Base Excess mEq/L Sodium (136-145) mmol/L Potassium (3.5-5.1) mmol/L Chloride (98-107) mmol/L Carbon Dioxide (21-32) mmol/L Anion Gap (3-11) BUN (6-23) mg/dl Creatinine (0.6-1.4) mg/dl Est Cr Clr Drug Dosing ml/min Est GFR ( Amer) ml/min Est GFR (Non-Af Amer) ml/min BUN/Creatinine Ratio (10-20) Glucose (70-99(Fasting)) mg/dl Lactate 1.4 (0.4-2.0) mmol/L Calcium (8.6-10.3) mg/dl Phosphorus (2.5-4.9) mg/dl Magnesium (1.7-2.4) mg/dl Total Bilirubin (0.2-1.0) mg/dl AST (13-39) U/L ALT (7-52) U/L Alkaline Phosphatase (34-104) U/L Troponin I High Sens (0-20) pg/ml B-Natriuretic Peptide (0-100) pg/ml Total Protein (6.0-8.3) gm/dl Albumin (3.4-5.0) gm/dl Globulin (2.5-4.0) gm/dl Albumin/Globulin Ratio (0.9-2) Lipase (11-82) U/L Procalcitonin 1.52 H (0-0.5) ng/ml Adenovirus (PCR) (NotDetected) B. pertussis DNA (PCR) (NotDetected) B.parapertussis DNA PCR (NotDetected) C. pneumoniae DNA (PCR) (NotDetected) Coronavirus OC43 (PCR) (NotDetected) Coronavirus HKU1 (PCR) (NotDetected) Coronavirus 229E (PCR) (NotDetected) SARS-CoV-2 (PCR) (NotDetected) Coronavirus NL63 (PCR) (NotDetected) Human Metapneumovir PCR (NotDetected) Influenza Type A (PCR) (NotDetected) Influenza Type B (PCR) (NotDetected) M. pneumoniae (PCR) (NotDetected) Parainfluenza 1 (PCR) (NotDetected) Parainfluenza 2 (PCR) (NotDetected) Parainfluenza 3 (PCR) (NotDetected) Parainfluenza 4 (PCR) (NotDetected) RSV (PCR) (NotDetected) Entero/Rhino (PCR) (NotDetected) Administered Medications Acetylcysteine (Acetylcysteine 20% Inhal Soln 4ml Dispensed By Resp.) 5 ml INH Q12H [facility] Stop: 10/08/23 08:59 Last Admin: 09/08/23 12:51 Dose: Not Given Documented By: LASHAWN Fluticasone/Vilanterol (Fluticasone/Vilanterol 100/25mcg 14 Puffs/Inhaler) 1 puffs INH DAILY [facility]; Protocol Stop: 10/08/23 10:59 Last Admin: 09/08/23 12:50 Dose: 1 puffs Documented By: LASHAWN Methylprednisolone 40 mg/ (Syringe) 0.64 mls @ 1.5 mls/min IV Q8H [facility] Stop: 10/08/23 09:59 Last Admin: 09/08/23 11:20 Dose: 1.5 mls/min Documented By: MAIKEL Insulin Aspart (Insulin Aspart Per Unit Charge) 0 units SC ACHS [facility] Stop: 10/08/23 11:29 Last Admin: 09/08/23 12:52 Dose: Not Given Documented By: LASHAWN Insulin Glargine (Lantus Per Unit Charge) 7 units SQ BID [facility] Stop: 10/08/23 08:59 Last Admin: 09/08/23 10:06 Dose: 7 units Documented By: LUCINDA Co-signed By: MELISSA Ipratropium Benedict (Ipratropium Benedict Neb Soln 0.02% 0.5mg/2.5ml Vial) 0.5 mg INH Q6R [facility] Stop: 10/08/23 12:59 Last Admin: 09/08/23 13:16 Dose: 0.5 mg Documented By: DG Levalbuterol HCl (Levalbuterol 1.25 Mg/3 Ml Neb) 1.25 mg NEB Q6R [facility] Stop: 10/08/23 12:59 Last Admin: 09/08/23 13:16 Dose: 1.25 mg Documented By: DG Losartan Potassium (Losartan Potassium 25 Mg Tab) 25 mg PO QAM [facility] Stop: 10/08/23 09:29 Last Admin: 09/08/23 11:24 Dose: 25 mg Documented By: MAIKEL Sodium Chloride (Sodium Chlor 7% 4 Ml Neb) 4 ml NEB BIDR [facility] Stop: 10/08/23 08:09 Last Admin: 09/08/23 11:56 Dose: 4 ml Documented By: DG Torsemide (Torsemide 20 Mg Tab) 80 mg PO BID17 [facility] Stop: 10/08/23 09:29 Last Admin: 09/08/23 11:24 Dose: 80 mg Documented By: MAIKEL Discontinued Medications Albuterol (Albut/Ipratrop 3mg/0.5mg Neb 3 Ml Vial) 3 ml NEB NOW STA; Protocol Stop: 09/08/23 05:09 Last Admin: 09/08/23 05:45 Dose: 3 ml Documented By: HOLLY Albuterol (Albut/Ipratrop 3mg/0.5mg Neb 3 Ml Vial) 12 ml NEB ONE ONE; Protocol Stop: 09/08/23 07:35 Last Admin: 09/08/23 08:03 Dose: 12 ml Documented By: RONY Guaifenesin (Guaifenesin 600 Mg Tabcr) 1,200 mg PO NOW STA Stop: 09/08/23 07:35 Last Admin: 09/08/23 07:59 Dose: 1,200 mg Documented By: LUCINDA Cefepime HCl (Maxipime) 2,000 mg in 20 mls @ 5 mls/min IV NOW STA; Protocol Stop: 09/08/23 06:47 Last Admin: 09/08/23 07:18 Dose: 5 mls/min Documented By: LUCINDA Metronidazole (Flagyl) 500 mg in 100 mls @ 100 mls/hr IV NOW STA; Protocol Stop: 09/08/23 07:43 Last Infusion: 09/08/23 11:00 Dose: Infused Documented By: Admin: 09/08/23 07:18 Dose: 100 mls/hr Documented By: LUCINDA Vancomycin HCl 2,750 mg/ (Sodium Chloride) 555 mls @ 200 mls/hr IV NOW ONE Stop: 09/08/23 09:30 Last Infusion: 09/08/23 12:56 Dose: Infused Documented By: Admin: 09/08/23 08:49 Dose: 200 mls/hr Documented By: LUCINDA Sodium Chloride (Nss) 500 mls @ 999 mls/hr IV .Q31M ONE Stop: 09/08/23 08:04 Last Infusion: 09/08/23 11:00 Dose: Infused Documented By: Admin: 09/08/23 09:32 Dose: 999 mls/hr Documented By: LUCINDA Potassium Chloride (K Vivek / Wtr) 10 meq in 100 mls @ 100 mls/hr IV Q1H [facility] Stop: 09/08/23 10:59 Last Admin: 09/08/23 12:50 Dose: 60 mls/hr Documented By: Infusion: 09/08/23 12:47 Dose: Infused Documented By: Infusion: 09/08/23 11:42 Dose: 60 mls/hr Documented By: Infusion: 09/08/23 11:38 Dose: 80 mls/hr Documented By: Admin: 09/08/23 11:20 Dose: 100 mls/hr Documented By: Infusion: 09/08/23 10:30 Dose: Infused Documented By: Admin: 09/08/23 09:29 Dose: 100 mls/hr Documented By: LUCINDA Cefepime HCl 2,000 mg/ Syringe 20 mls @ 5 mls/min IV Q8H [facility]; Protocol Stop: 09/15/23 07:59 Last Admin: 09/08/23 12:56 Dose: Not Given Documented By: LASHAWN Azithromycin 500 mg/ Dextrose 255 mls @ 127.5 mls/hr IV NOW STA Stop: 09/08/23 10:22 Last Admin: 09/08/23 12:50 Dose: 127.5 mls/hr Documented By: LASHAWN Ioversol (Optiray 320 125ml) 112 ml IV ONCE ONE Stop: 09/08/23 06:19 Last Admin: 09/08/23 06:18 Dose: 112 ml Documented By: CLIVE Methylprednisolone (Methylprednisolone 125 Mg/2 Ml Vial) 125 mg IV NOW STA Stop: 09/08/23 05:09 Last Admin: 09/08/23 05:45 Dose: 125 mg Documented By: HOLLY Potassium Chloride (Potassium Chloride Crtab 20 Meq Tabcr) 40 meq PO NOW STA Stop: 09/08/23 07:55 Last Admin: 09/08/23 09:29 Dose: 40 meq Documented By: LUCINDA Imaging Data Radiologist's Impression: Chest X-Ray 09/08/23 03:38 SINGLE VIEW CHEST CLINICAL HISTORY: Atypical chest pain. FINDINGS: An AP, portable, upright chest radiograph is compared to study dated 08/30/2023 and correlated with chest CT dated 08/31/2023. The heart is enlarged. The pulmonary vasculature is noncongestive. Multifocal bilateral airspace opacities are seen throughout both lungs. There are layering pleural effusions with dependent consolidation. There are scattered calcified granulomas. Parenchymal scarring/fibrosis is noted throughout both lung. No pneumothorax is seen. The skeletal structures are osteopenic. The bony thorax is grossly intact. IMPRESSION: 1. Cardiomegaly without clear radiographic evidence of congestive failure. 2. Multiple bilateral airspace opacities are seen throughout both lungs. The majority of this likely represents scarring/fibrosis. Correlate clinically for evidence of a superimposed infectious/inflammatory pneumonitis or mild pulmonary edema. Radiographic follow-up is advised. 3. Small pleural effusions with dependent consolidation. These are similar to prior studies and may be chronic. ACT 112: Negative or not required by law. Electronically signed by: Demetrius Pettit M.D. 09/08/2023 9:24 AM Chest CTA 09/08/23 05:08 CT angio chest PE protocol CT DOSE: 967.13 mGy.cm HISTORY: 52 years-old Male with sob, r/o PE. Acute shortness of breath TECHNIQUE: Multiple CTA images of the chest were obtained after the intravenous administration of 120 ml Optiray. Coronal and sagittal MIPS were obtained from the axial data set and were submitted for review. All measurements were obtained according to NASCET criteria. A dose lowering technique was utilized adhering to the principles of ALARA. COMPARISON: Chest CT 08/31/2023, March 02, 2022. FINDINGS: CTA: Unchanged appearance of the heart which is mildly enlarged, notably with dilation of the right heart structures. Normal thoracic aorta. Dilation of the main pulmonary artery measuring up to 3.7 cm. No pulmonary emboli identified. CT CHEST: Unremarkable thyroid. A mildly enlarged prevascular lymph node on image [address] of March 02, 2022. Calcified mediastinal and bilateral hilar lymph nodes indicate a granulomatous process. Chronic bilateral pleural effusions, right larger than left, are unchanged since CT of March 02, 2022. The right pleural effusion appears complex with hyperdensity and calcifications, also unchanged. Multifocal scarring within the lungs with scattered irregular pulmonary nodules remain stable. There is interval development of multifocal patchy consolidative opacities within the lungs, most pronounced in the left greater than right lower lobes with intermixed intralobular septal thickening. Pulmonary emphysema. There is no pneumothorax. No acute fractures within the bony thorax. Visualized portions of the upper abdomen appear unchanged. IMPRESSION: 1. Pulmonary arterial hypertension without pulmonary emboli. 2. Patchy multifocal pneumonia is most pronounced throughout the left lung. Follow-up recommended. 3. Chronic pleural effusions with complexity and calcifications again seen within the right pleural effusion. 4. Prior granulomatous disease with scarring and architectural distortion, likely related to prior sarcoidosis. ACT 112: Negative or not required by law. The above report was generated using voice recognition software. It may contain grammatical, syntax or spelling errors. Electronically signed by: Bryce Romero M.D. 09/08/2023 7:33 AM Discharge Plan Visit Data Chief Complaint: Shortness of Breath/Dyspnea Stated Complaint: SOB X COUPLE DAYS, GETTING WORSE ED Provider: eJfferson Bowie Discharge Problem: [id number] respiratory failure, Pneumonia, Sarcoidosis, COPD exacerbation, Parainfluenza infection, Pulmonary HTN Discharge Instructions Interventions: ED Discharge Assessment Last Done: 09/08/23 10:36 Discharge Problem: [id number] respiratory failure Qualifiers: Respiratory failure complication: hypoxia Qualified Code(s): J96.21 - Acute and chronic respiratory failure with hypoxia Pneumonia Qualifiers: Pneumonia type: due to unspecified organism Laterality: bilateral Lung location: lower lobe of lung Qualified Code(s): J18.9 - Pneumonia, unspecified organism
[2023-09-08 05:15] LABS: Base Excess VBG 9.2 mEq/L; HCO3 VBG 35 mmol/L; Oxygen Saturation VBG 92.7 %; PCO2 VBG 50 mmHg (38-50); PO2 VBG 64 mmHg; pH VBG 7.45 (7.36-7.41)
[2023-09-08 05:19] LABS: Hematocrit (blood only) 50.2 % (42.0-52.0); Hemoglobin 17.2 g/dl (14.0-18.0); Mean Corpuscular Hemoglobin 31.4 pg (25.0-34.0); Mean Corpuscular Hgb Conc 34.3 g/dL (32.0-36.0); Mean Corpuscular Volume 91.8 fL (80.0-100.0); Mean Platelet Volume 8.4 fL (9.4-12.4); Platelet Count 362 K/uL (130-400); RDW Standard Deviation 47.7 fL (36.4-46.3); Red Blood Count 5.47 M/uL (4.70-6.10); White Blood Count 23.02 K/ul (4.8-10.8)
[2023-09-08 05:37] LABS: Albumin Globulin Ratio 1.1 (0.9-2); Albumin Level 3.9 gm/dl (3.4-5.0); BUN Creatinine Ratio 22.6 (10-20); Bilirubin,Total 0.9 mg/dl (0.2-1.0); Calcium 8.9 mg/dl (8.6-10.3); Creatinine Clr Calc Pharmacy 90.5 ml/min; Est GFR (African American) 83.7 ml/min; Est GFR (Non-African American) 72.3 ml/min; Globulin 3.5 gm/dl (2.5-4.0); Magnesium 1.7 mg/dl (1.7-2.4); Phosphorus 3.2 mg/dl (2.5-4.9); Total Protein 7.4 gm/dl (6.0-8.3)
[2023-09-08 05:42] LABS: Troponin I High Sensitivity 23.9 pg/ml (0-20)
[2023-09-08 05:44] LABS: Prothrombin Time 11.3 Seconds (9.0-12.0)
[2023-09-08] MEDS: ALBUT/IPRATROP 3MG/0.5MG NEB 3 ML VIAL NEB STA (05:45)
[2023-09-08] MEDS: methylPREDNISolone 125 MG/2 ML VIAL IV STA (05:45)
[2023-09-08 05:51] LABS: Basophils # (auto) 0.03 K/uL (0.00-0.20); Basophils % (auto) 0.1 %; Eosinophils # (auto) 0.03 K/uL (0.00-0.50); Eosinophils % (auto) 0.1 %; Immature Granulocytes # (auto) 0.21 K/uL (0.01-0.20); Immature Granulocytes % (auto) 0.9 %; Lymphocytes # (auto) 0.93 K/uL (1.20-3.40); Monocytes # (auto) 1.52 K/uL (0.11-0.59); Monocytes % (auto) 6.6 %; Neutrophils % (auto) 88.3 %
[2023-09-08 06:03] LABS: Adenovirus PCR Not Detected (NotDetected); Bordetella parapertussis PCR Not Detected (NotDetected); Bordetella pertussis PCR Not Detected (NotDetected); Chlamydia pneumoniae PCR Not Detected (NotDetected); Coronavirus 229E PCR Not Detected (NotDetected); Coronavirus CoV-2 (COVID19)PCR Not Detected (NotDetected); Coronavirus HKU1 PCR Not Detected (NotDetected); Coronavirus NL63 PCR Not Detected (NotDetected); Coronavirus OC43PCR Not Detected (NotDetected); Human Metapneumovirus PCR Not Detected (NotDetected); Influenza A PCR Not Detected (NotDetected); Influenza B PCR Not Detected (NotDetected); Mycoplasma pneumoniae PCR Not Detected (NotDetected); Parainfluenza Virus 1 PCR Not Detected (NotDetected); Parainfluenza Virus 2 PCR Not Detected (NotDetected); Parainfluenza Virus 3 PCR DETECTED (NotDetected); Parainfluenza Virus 4 PCR Not Detected (NotDetected); Respiratory Syncytial VirusPCR Not Detected (NotDetected); Rhinovirus/Enterovirus PCR Not Detected (NotDetected)
[2023-09-08] MEDS: OPTIRAY 320 125ml IV ONE (06:18)
[2023-09-08] MEDS ORDERED: VANCOMYCIN CONSULT ACTIVE PRN (06:44)
[2023-09-08] MEDS: CEFEPIME 2,000 MG/20 ML VIAL IV STA (07:18)
[2023-09-08] MEDS: metroNIDAZOLE 500 MG/100 ML BAG IV STA (07:18)
--- NOTE | 2023-09-08 07:35 | CT Scan Report ---
CT angio chest PE protocol CT DOSE: 967.13 mGy.cm HISTORY: 52 years-old Male with sob, r/o PE. Acute shortness of breath TECHNIQUE: Multiple CTA images of the chest were obtained after the intravenous administration of 120 ml Optiray. Coronal and sagittal MIPS were obtained from the axial data set and were submitted for review. All measurements were obtained according to NASCET criteria. A dose lowering technique was u tilized adhering to the principles of ALARA. COMPARISON: Chest CT 08/31/2023, March 02, 2022. FINDINGS: CTA: Unchanged appearance of the heart which is mildly enlarged, notably with dilation of the right heart structures. Normal thoracic aorta. Dilation of the main pulmonary artery measuring up to 3.7 cm. No p ulmonary emboli identified. CT CHEST: Unremarkable thyroid. A mildly enlarged prevascular lymph node on image [address] of March 02, 2022. Calcified mediastinal and bilateral hilar lymph nodes indicate a granulomatous pr ocess. Chronic bilateral pleural effusions, right larger than left, are unchanged since CT of Sept2021. The right pleural effusion appears complex with hyperdensity and calcifications, also un changed. Multifocal scarring within the lungs with scattered irregular pulmonary nodules remain stabl e. There is interval development of multifocal patchy consolidative opacities within the lungs, most pronounced in the left greater than right lower lobes with intermixed intralobular septal thickening. Pulmonary emphysema. There is no pneumothorax. No acute fractures within the bony thorax. Visualized portions of the upper abdomen appear unchanged. IMPRESSION: 1. Pulmonary arterial hypertension without pulmonary emboli. 2. Patchy multifocal pneumonia is most pronounced throughout the left lung. Follow-up recommended. 3. Chronic pleural effusions with complexity and calcifications again seen within the right pleural e ffusion. 4. Prior granulomatous disease with scarring and architectural distortion, likely related to prior sa rcoidosis. ACT 112: Negative or not required by law. The above report was generated using voice recognition software. It may contain grammatical, syntax o r spelling errors. Electronically signed by: Bryce Romero M.D. 09/08/2023 7:33 AM
[2023-09-08] MEDS ORDERED: CARBOHYDRATES FOR HYPOGLYCEMIA PO PRN (07:59)
[2023-09-08] MEDS ORDERED: GLUCOSE 10 TAB/TUBE PO PRN (07:59)
[2023-09-08] MEDS ORDERED: DEXTROSE 50% 50 ML SYRINGE IV PRN (07:59)
[2023-09-08] MEDS ORDERED: GLUCAGON FOR INJ 1 MG VIAL SQ PRN (07:59)
[2023-09-08] MEDS ORDERED: MAGNESIUM HYDROXIDE SUSP 30 ML UDC PO PRN (07:59)
[2023-09-08] MEDS ORDERED: ONDANSETRON INJ 2 MG/ML 2 ML VIAL IV PRN (07:59)
[2023-09-08] MEDS ORDERED: ALUMINUM/MAGNESIUM SUSP 30 ML UDC PO PRN (07:59)
[2023-09-08] MEDS ORDERED: ACETAMINOPHEN 325 MG TAB PO PRN (07:59)
[2023-09-08] MEDS ORDERED: GLUCOSE 40% GEL 15 GM TUBE PO PRN (07:59)
[2023-09-08] MEDS: guaiFENesin 600 MG TABCR PO STA (07:59)
[2023-09-08] MEDS: ALBUT/IPRATROP 3MG/0.5MG NEB 3 ML VIAL NEB ONE (08:03)
--- NOTE | 2023-09-08 08:45 | History & Physical Report ---
Date of Service September 08, 2023 Assessment & Plan (1) Ysqdo-yp-pupqawv respiratory failure: (2) Pneumonia: (3) Sarcoidosis: (4) ANGELES (obstructive sleep apnea): (5) CHF (congestive heart failure), NYHA class III: (6) Hypokalemia: (7) HTN (hypertension): (8) DMII (diabetes mellitus, type 2): (9) Depression: (10) BPH (benign prostatic hyperplasia): Plan Mr. Pugh is a 52-year-old male who presents to the ED today with shortness of breath and productive cough. He was recently admitted to [facility] from 08/29 to 09/03 with a COPD exacerbation in the setting of a URI secondary to parainfluenza. Additional complex past medical history includes COPD, sarcoidosis of the lung, chronic respiratory failure with 3 to 4 L home supplemental oxygen at baseline, ANGELES(BiPAP at night), right-sided heart failure, pulmonary hypertension, diabetes type 2, HTN, depression, history of C. difficile, history of blastomycosis requiring tracheostomy status post decannulation, and BPH. Leukocytosis 23.02, hypokalemic 3.0, lactate normal, BNP negative, procalcitonin is pending. Chest CTA negative for PE but suggestive of pulmonary hypertension; which is known. Additionally patchy multifocal pneumonia noted in the left lung with chronic pleural effusions and scarring from granulomatosis which is likely related to sarcoidosis. Patient will be admitted to PCU for further evaluation and management of his multifocal pneumonia. Given the complexity of his pulmonary issues will re-involve pulmonology, continue antibiotic coverage and adjust based on sputum, blood, and MRSA screen results. Due to thick sputum continue hypertonic saline nebulizers, will continue IV steroids and await pulmonary recommendations, given patient has pulmonary hypertension continue to keep O2 sats 90 to 92%. Add formotorol + Budesinide, supportive respiratory. Acute on chronic respiratory failure: Pneumonia: Sarcoidosis: Acute; admit to PCU given complexity and possibility of decompensation requiring increased O2 needs Wears 4 to 5 L of O2 at home Chest CTA neg for PE;suggestive of known pHTN. Patchy multifocal PNA noted L lung with chronic pleural effusions/scarring from granulomatosis; likely related to sarcoidosis. WBC 23.02, lactate normal Blood and sputum cultures ordered and pending Given thickness of sputum hypertonic saline nebs, Atrovent plus Xopenex Mucomyst ordered as adjuvant therapy Flutter valve plus ISB Started on cefepime plus Vanco; drop Vanco if negative MRSA screen Pulm ordered Legionella antigen Procalcitonin pending Ordered Mucinex Solu-Medrol 125 mg given in ED; continue 40 mg IV Q8 Given complexity of patient's lung condition; re-involve pulmonology and await recommendations Acute on chronic respiratory failure: Acute Target SpO2 90 to 92% given pulmonary hypertension DuoNebs as needed, Mucinex, acetylcysteine Flutter valve and incentive spirometry for supportive treatment ANGELES: Chronic Uses BiPAP nightly; continue Congestive heart failure: Pulmonary hypertension: Chronic Right-sided heart failure; in setting of PHTN Takes torsemide and Cardiac MRI negative 09/21 to rule out heart involvement related to sarcoidosis Follows with Dr. Watson with Cards; last appt 09/07/23; no medication changes with 6 month f/u BNP 29 and appears euvolemic Continue IV steroids 40 mg every 8 Hypokalemia: Acute Serum potassium 3.0; replaced with 40 p.o. +3 K riders Check BMP at 1500 No ectopy on monitor HTN: Chronic Takes losartan, Aldactone and torsemide; DM2: Chronic Puv-ipyikos-sqkkbqspc Takes metformin; hold while inpatient Placed on SSI ACHS with FSBS Depression: Chronic Takes citalopram; continue Disposition: PCP: Dr. Downing CODE STATUS: Full code VTE prophylaxis: Teds/SCDs given hemoptysis I spent a total of 87 minutes coordinating, documenting, and providing care for this patient excluding time spent in the performance of separately billed services. All of the aforementioned completed while collaborating with the assigned attending physician for a full treatment plan. Please see their addendum for further details. History of Present Illness Chief Complaint: Shortness of breath Primary Care Provider: Andrzej Downing MD Mr. Pugh is a 52-year-old male who presents to the ED today with shortness of breath and productive cough. He was recently admitted to [facility] from 08/29 to 09/03 with a COPD exacerbation in the setting of a URI secondary to parainfluenza. Additional complex past medical history includes COPD, sarcoidosis of the lung, chronic respiratory failure with 3 to 4 L home supplemental oxygen at baseline, ANGELES(BiPAP at night), right-sided heart failure, pulmonary hypertension, diabetes type 2, HTN, depression, history of C. difficile, history of blastomycosis requiring tracheostomy status post decannulation, and BPH. Leukocytosis 23.02, hypokalemic 3.0, lactate normal, BNP negative, procalcitonin is pending. Chest CTA negative for PE but suggestive of pulmonary hypertension; which is known. Additionally patchy multifocal pneumonia noted in the left lung with chronic pleural effusions and scarring from granulomatosis which is likely related to sarcoidosis. Patient will be admitted to PCU for further evaluation and management of his multifocal pneumonia. Given the complexity of his pulmonary issues will re- involve pulmonology, continue antibiotic coverage and adjust based on sputum, blood, and MRSA screen results. Due to thick sputum continue hypertonic saline nebulizers, will continue IV steroids and await pulmonary recommendations, given patient has pulmonary hypertension continue to keep O2 sats 90 to 92%. Add formotorol + Budesinide, supportive respiratory. Allergies Allergy/AdvReac Type Severity Reaction Status Date / Time doxycycline AdvReac Severe Vomiting Verified 09/08/23 08:00 Home Medications Medication Instructions Recorded Confirmed Type aspirin 81 mg chewable tablet 81 mg PO QAM 10/08/19 09/08/23 History (Claire Chewable Low Dose Aspirin) citalopram 20 mg tablet 20 mg PO QAM 10/08/19 09/08/23 History digoxin 125 mcg (0.125 mg) tablet 125 mcg PO QAM 10/08/19 09/08/23 History (Digitek) empagliflozin 25 mg tablet 25 mg PO QAM 10/08/19 09/08/23 History (Jardiance) ferrous sulfate 325 mg (65 mg 325 mg PO QAM 10/08/19 09/08/23 History iron) tablet folic acid 1 mg tablet 1 mg PO QAM 10/08/19 09/08/23 History losartan 25 mg tablet 25 mg PO QAM 10/08/19 09/08/23 History metformin 500 mg tablet,extended 1,000 mg PO QAM 10/08/19 09/08/23 History release 24 hr omeprazole 20 mg capsule,delayed 20 mg PO QAM 10/08/19 09/08/23 History release potassium chloride 20 mEq 20 meq PO BID 10/08/19 09/08/23 History tablet,extended release(part/cryst) spironolactone 25 mg tablet 25 mg PO TID 10/08/19 09/08/23 History tamsulosin 0.4 mg capsule 0.4 mg PO DAILY 10/08/19 09/08/23 History torsemide 20 mg tablet 80 mg PO BID 10/08/19 09/08/23 History albuterol sulfate 2.5 mg/3 mL 2.5 mg inhalation DAILY PRN Dyspnea 03/02/22 09/08/23 History (0.083 %) solution for nebulization albuterol sulfate 90 mcg/actuation 2 puff inhalation Q4H PRN Dyspnea 03/02/22 09/08/23 History aerosol inhaler ascorbic acid (vitamin C) 250 mg 500 mg PO QAM 03/02/22 09/08/23 History tablet (Vitamin C) cromolyn 4 % eye drops 1 drp OPB QID PRN allergy or 03/02/22 09/08/23 History itching fluticasone furoate 200 1 ea inhalation QAM 03/02/22 09/08/23 History mcg-vilanterol 25 mcg/dose inhalation powder (Breo Ellipta) fluticasone propionate 50 2 spray intranasal QAM 03/02/22 09/08/23 History mcg/actuation nasal spray,suspension levocetirizine 5 mg tablet 5 mg PO DAILY PRN Allergy Symptoms 03/02/22 09/08/23 History metolazone 2.5 mg tablet 2.5 mg PO UD 03/02/22 09/08/23 History montelukast 10 mg tablet 10 mg PO HS 03/02/22 09/08/23 History multivitamin 1 tab PO DAILY 03/02/22 09/08/23 History acetaminophen 325 mg tablet 650 mg (2 x 325 mg) PO Q4H PRN 03/04/22 09/08/23 Rx pain #30 tabs loratadine 10 mg tablet 10 mg PO DAILY PRN allergies 08/30/23 09/08/23 History tiotropium bromide 2.5 2 puff inhalation DAILY 08/30/23 09/08/23 History mcg/actuation mist for inhalation (Spiriva Respimat) sodium chloride 7 % for 4 ml NEB BIDR #240 mL 09/04/23 09/08/23 Rx nebulization guaifenesin 600 mg tablet, 600 mg PO Q12 PRN mucus 09/08/23 09/08/23 History extended release 12 hr (Mucinex) prednisone 20 mg tablet 0 mg PO DAILY 09/08/23 09/08/23 History semaglutide 1 mg/dose (4 mg/3 mL) 4 mg subcut WK 09/08/23 09/08/23 History subcutaneous pen injector (Ozempic) Past Med/Surg History Medical History (Updated 09/08/23 @ 12:56 by Jefferson Bowie MD) BPH (benign prostatic hyperplasia) DMII (diabetes mellitus, type 2) CHF (congestive heart failure), NYHA class III Pulmonary blastomycosis Chronic respiratory failure Pulmonary HTN HTN (hypertension) Right-sided heart failure ANGELES (obstructive sleep apnea) Pulmonary sarcoidosis Depression Surgical History H/O right heart catheterization [facility] [place], 2020 S/P bronchoscopy Hx of tonsillectomy Family History Other Cancer Sarcoidosis Social History Smoking Status: Never smoker Tobacco Type: Smokeless Tobacco (Dip or Chew) Second Hand Exposure: No; Do You Dip or Chew Tobacco: Yes; Tobacco Cessation Education Requested by Patient: No Hx Alcohol Use: Yes Alcohol type: beer Hx Substance Use: No Preferred Language: Estonian Communication Ability: Effective Early Interventionist Required: No Beliefs That Will Affect Care: None marital status: Single Current Living Situation: Alone How many Children do You have: 0 Other Information That Helps Us Care for You: No Feels Safe at Home: Yes Assistive Devices: BiPap, Glasses, Nebulizer and Oxygen - Continuous Review of Systems Review of Systems: Neuro: (-) Falls, trauma, slurred speech HEENT: (-) PEDRAZA, dizziness, dysphagia, visual or auditory changes CV: (-) CP, palpitations, swelling Resp: (-) SOB GI: (-) appetite changes, N/V/D, bowel changes : (-) urinary changes Skin: (-) rashes Psych: (-) anxiety, depression Physical Exam Physical Exam: Neuro: AAOx4, PERRLA, no aphagia, memory changes, CNII-XII grossly intact HEENT: head normocephalic, moist mucus membranes CV: S1/S2, (-) M/G/R, (-) edema, cap refill < 3 seconds Resp: Lungs coarse throughout. On 6LNC. GI: Abdomen S/NT/ND, Ax4 bowel sounds, (-) CVA tenderness Musculoskeletal: 5/5 B/L UE strength, 5/5 B/L LE strength. No gait disturbance Skin: (-) rashes , (-) erythema. Psych: euthymic mood Results & Data Results & Data Vital Signs (Past 12 Hours) Vital Signs Temp Pulse Pulse Resp BP BP Pulse Ox 09/08/23 08:04 91 H 24 93 09/08/23 07:00 87 19 132/89 92 09/08/23 05:54 98 H 24 95 09/08/23 05:54 98 H 24 146/98 H 95 09/08/23 05:13 96 09/08/23 04:21 123 H 09/08/23 04:00 36.8 C 112 H 21 105/84 96 09/08/23 04:00 O2 Del Method O2 Flow Rate 09/08/23 08:04 Non-rebreather 10 09/08/23 07:00 Oxymask 10 09/08/23 05:54 Oxymask 10 09/08/23 05:54 Oxymask 10 09/08/23 05:13 Non-rebreather 10 09/08/23 04:21 09/08/23 04:00 Non-rebreather 15 09/08/23 04:00 Non-rebreather 15 Laboratory Results Short CBC 09/08/23 Range/Units 04:50 WBC 23.02 H (4.8-10.8) K/ul Hgb 17.2 (14.0-18.0) g/dl Hct 50.2 (42.0-52.0) % Plt Count 362 (130-400) K/uL BMP 09/08/23 04:50 Sodium 133 L Potassium 3.0 L Chloride 92 L Carbon Dioxide 30 BUN 26 H Creatinine 1.15 Glucose 165 H Calcium 8.9 Liver Function 09/08/23 Range/Units 04:50 Total Bilirubin 0.9 (0.2-1.0) mg/dl AST 14 (13-39) U/L ALT 15 (7-52) U/L Alkaline Phosphatase 45 (34-104) U/L Albumin 3.9 (3.4-5.0) gm/dl Diagnostic Findings Chest CTA 09/08/23 05:08 CT angio chest PE protocol CT DOSE: 967.13 mGy.cm HISTORY: 52 years-old Male with sob, r/o PE. Acute shortness of breath TECHNIQUE: Multiple CTA images of the chest were obtained after the intravenous administration of 120 ml Optiray. Coronal and sagittal MIPS were obtained from the axial data set and were submitted for review. All measurements were obtained according to NASCET criteria. A dose lowering technique was utilized adhering to the principles of ALARA. COMPARISON: Chest CT 08/31/2023, March 02, 2022. FINDINGS: CTA: Unchanged appearance of the heart which is mildly enlarged, notably with dilation of the right heart structures. Normal thoracic aorta. Dilation of the main pulmonary artery measuring up to 3.7 cm. No pulmonary emboli identified. CT CHEST: Unremarkable thyroid. A mildly enlarged prevascular lymph node on image [address] of March 02, 2022. Calcified mediastinal and bilateral hilar lymph nodes indicate a granulomatous process. Chronic bilateral pleural effusions, right larger than left, are unchanged since CT of March 02, 2022. The right pleural effusion appears complex with hyperdensity and calcifications, also unchanged. Multifocal scarring within the lungs with scattered irregular pulmonary nodules remain stable. There is interval development of multifocal patchy consolidative opacities within the lungs, most pronounced in the left greater than right lower lobes with intermixed intralobular septal thickening. Pulmonary emphysema. There is no pneumothorax. No acute fractures within the bony thorax. Visualized portions of the upper abdomen appear unchanged. IMPRESSION: 1. Pulmonary arterial hypertension without pulmonary emboli. 2. Patchy multifocal pneumonia is most pronounced throughout the left lung. Follow-up recommended. 3. Chronic pleural effusions with complexity and calcifications again seen within the right pleural effusion. 4. Prior granulomatous disease with scarring and architectural distortion, likely related to prior sarcoidosis. ACT 112: Negative or not required by law. The above report was generated using voice recognition software. It may contain grammatical, syntax or spelling errors. Electronically signed by: Bryce Romero M.D. 09/08/2023 7:33 AM Code Status & VTE Plan Code Status Full code in the event of cardiac or respiratory arrest VTE Prophylaxis Plan VTE Prophylaxis will be ordered: Yes Supervising Physician Co-Signing Physician Notes 52-year-old male with PMH of COPD, sarcoidosis of the lung, chronic respiratory failure with 4 to 5 L home supplemental oxygen at baseline, ANGELES(BiPAP at night), right-sided heart failure, pulmonary hypertension, diabetes type 2, HTN, depression, history of C. difficile, history of blastomycosis requiring tracheostomy status post decannulation, and BPH presented 4/4 with complaint of worsening shortness of breath and productive cough. Labs with leukocytosis, MRSA swab negative, procalcitonin positive, respiratory viral panel positive for parainfluenza. CTA chest negative for PE but suggestive of multifocal pneumonia on the left. Patient being managed for the following: Acute on chronic respiratory failure Acute exacerbation of COPD Pneumonia -- Will DC vancomycin as MRSA negative, cefepime. Pulmonology on board, recommending azithromycin. Continue with scheduled and as needed nebs. Contin ue with Solu-Medrol. Continue supportive management. On examination: GENERAL: Alert and oriented x3. NAD, on BPAP. HEENT: No pallor, no icterus. Pupils equal, round and reactive to light. Oral mucosa moist. NECK: No JVD, no neck masses. HEART: S1 and S2 heard. Regular rate and rhythm. No murmur, no gallop. RESPIRATORY SYSTEM: Normal AP diameter. No accessory muscle use. rhonci and crackle diffuse and b/l. ABDOMEN: Soft, bowel sounds present, nontender, no distention. CENTRAL NERVOUS SYSTEM: No facial droop. Speech is clear. Obeys simple commands. Moves extremities. EXTREMITIES: No edema, no erythema seen. I have seen and examined the patient and have discussed the case with the provider above. I agree with the assessment and plan as stated.
[2023-09-08] MEDS: VANCOMYCIN HCL 2,750 MG in SODIUM CHLORIDE 0.9% 500 ML IV ONE (08:49)
--- NOTE | 2023-09-08 09:26 | XRay Report ---
SINGLE VIEW CHEST CLINICAL HISTORY: Atypical chest pain. FINDINGS: An AP, portable, upright chest radiograph is compared to study dated 08/30/2023 and correlat ed with chest CT dated 08/31/2023. The heart is enlarged. The pulmonary vasculature is noncongestive. Multifocal bilateral airspace opacities are seen throughout both lungs. There are layering pleural ef fusions with dependent consolidation. There are scattered calcified granulomas. Parenchymal scarring/ fibrosis is noted throughout both lung. No pneumothorax is seen. The skeletal structures are osteopen ic. The bony thorax is grossly intact. IMPRESSION: 1. Cardiomegaly without clear radiographic evidence of congestive failure. 2. Multiple bilateral airspace opacities are seen throughout both lungs. The majority of this likely represents scarring/fibrosis. Correlate clinically for evidence of a superimposed infectious/inflamma tory pneumonitis or mild pulmonary edema. Radiographic follow-up is advised. 3. Small pleural effusions with dependent consolidation. These are similar to prior studies and may b e chronic. ACT 112: Negative or not required by law. Electronically signed by: Demetrius Pettit M.D. 09/08/2023 9:24 AM
[2023-09-08] MEDS: POTASSIUM CHLORIDE / WTR 10 MEQ/100 ML PLCT IV SCH (09:29)
[2023-09-08] MEDS: POTASSIUM CHLORIDE CRTAB 20 MEQ TABCR PO STA (09:29)
[2023-09-08] MEDS: SODIUM CHLORIDE 0.9% 500 ML IV ONE (09:32)
[2023-09-08] MEDS ORDERED: methylPREDNISolone 1000 MG/16 ML IV SCH (10:00)
[2023-09-08] MEDS: LANTUS PER UNIT CHARGE SQ SCH (10:06)
--- NOTE | 2023-09-08 10:39 | Pulmonary Consultation ---
Date of Consultation September 08, 2023 Assessment & Plan (1) Pneumonia: (2) [id number] respiratory failure: (3) Parainfluenza infection: (4) CHF (congestive heart failure), NYHA class III: (5) Pulmonary HTN: (6) Right-sided heart failure: (7) ANGELES (obstructive sleep apnea): (8) Pulmonary sarcoidosis: Plan 52 yo male PMHx COPD, pulmonary sarcoidosis, pHTN, R-heart failure, chronic respiratory failure on 4-5L home O2, ANGELES on bipap nightly, T2DM, HTN, depression, hx of blastomycosis, BPH admitted for increasing shortness of breath. Patient was recently hospitalized 08/30/23-09/04/23 for CHF and COPD exacerbation in setting of parainfluenza infection. Pt states that his breathing never fully returned to baseline after recent hospital stay and he has required consistently 5L home O2. Increase in SOB and cough over the last ~24-48hrs. #Pneumonia CT demonstrates multifocal PNA with L lung predominance cont vanc, cefepime add azithromycin for atypical coverage hypertonic saline for thick mucous/secretions check legionella antigen f/u MRSA swab, d/c vanc if negative f/u procal #Acute on chronic respiratory failure/COPD target O2 90-92% cont duonebs PRN, acetylcysteine, mucinex flutter valve/incentive spirometry continue solu-medrol 40 q8h #Pulmonary HTN BNP 29, does not appear volume overloaded diuresis as indicated to maintain current or negative volume status #ANGELES continue nightly bipap #Pulmonary Sarcoid not on maintenance therapy defer to [facility] pulm to manage as OP Supervising Physician Co-Signing Physician Notes Patient seen and examined with resident physician. Agree with the note as above unless otherwise specified. Patient with a longstanding history of sarcoidosis and prior blastomycosis infection. In 2014 he was hospitalized in [place] for blastomycosis and required prolonged ventilation and underwent a tracheostomy. He has since had his tracheostomy decannulated. He was hospitalized recently for parainfluenza and has bounced back as a readmission due to superimposed bacterial pneumonia. Agree with broad-spectrum antibiotics at this time. Will start percussive vest therapy and hypertonic saline to promote mucociliary clearance. Will consider bronchoscopy if the patient fails to improve in the next day or 2. He has a history of ANGELES. Continue PAP therapy at night. Patient dyspneic on exam with conversation. He has crackles bilaterally. Mildly tachycardic. Mild edema in the lower extremities. History of Present Illness Reason for Consultation: Pneumonia, complicated lung hx Requesting Physician: Lee Ann Locke History of Present Illness 52 yo male PMHx COPD, pulmonary sarcoidosis, pHTN, R-heart failure, chronic respiratory failure on 4-5L home O2, ANGELES on bipap nightly, T2DM, HTN, depression, hx of blastomycosis, BPH admitted for increasing shortness of breath. Patient was recently hospitalized 08/30/23-09/04/23 for CHF and COPD exac erbation in setting of parainfluenza infection. Pt states that his breathing never fully returned to baseline after recent hospital stay and he has required consistently 5L home O2. Patient seen and evaluated at bedside this morning. At the time of evaluation pt was resting comfortably wearing home bipap with 9L of supplemental oxygen. O2 sats in high 80s-low 90s. Pt reports cough with thick mucous and feeling like it is difficult to bring this up. Denies hemoptysis. Endorses chest tightness and SOB. Denies PEDRAZA, CP, N/V/D, LE edema. Allergies Allergy/AdvReac Type Severity Reaction Status Date / Time doxycycline AdvReac Severe Vomiting Verified 09/08/23 08:00 Home Medications Medication Instructions Recorded Confirmed Type aspirin 81 mg chewable tablet 81 mg PO QAM 10/08/19 09/08/23 History (Claire Chewable Low Dose Aspirin) citalopram 20 mg tablet 20 mg PO QAM 10/08/19 09/08/23 History digoxin 125 mcg (0.125 mg) tablet 125 mcg PO QAM 10/08/19 09/08/23 History (Digitek) empagliflozin 25 mg tablet 25 mg PO QAM 10/08/19 09/08/23 History (Jardiance) ferrous sulfate 325 mg (65 mg 325 mg PO QAM 10/08/19 09/08/23 History iron) tablet folic acid 1 mg tablet 1 mg PO QAM 10/08/19 09/08/23 History losartan 25 mg tablet 25 mg PO QAM 10/08/19 09/08/23 History metformin 500 mg tablet,extended 1,000 mg PO QAM 10/08/19 09/08/23 History release 24 hr omeprazole 20 mg capsule,delayed 20 mg PO QAM 10/08/19 09/08/23 History release potassium chloride 20 mEq 20 meq PO BID 10/08/19 09/08/23 History tablet,extended release(part/cryst) spironolactone 25 mg tablet 25 mg PO TID 10/08/19 09/08/23 History tamsulosin 0.4 mg capsule 0.4 mg PO DAILY 10/08/19 09/08/23 History torsemide 20 mg tablet 80 mg PO BID 10/08/19 09/08/23 History albuterol sulfate 2.5 mg/3 mL 2.5 mg inhalation DAILY PRN Dyspnea 03/02/22 09/08/23 History (0.083 %) solution for nebulization albuterol sulfate 90 mcg/actuation 2 puff inhalation Q4H PRN Dyspnea 03/02/22 09/08/23 History aerosol inhaler ascorbic acid (vitamin C) 250 mg 500 mg PO QAM 03/02/22 09/08/23 History tablet (Vitamin C) cromolyn 4 % eye drops 1 drp OPB QID PRN allergy or 03/02/22 09/08/23 History itching fluticasone furoate 200 1 ea inhalation QAM 03/02/22 09/08/23 History mcg-vilanterol 25 mcg/dose inhalation powder (Breo Ellipta) fluticasone propionate 50 2 spray intranasal QAM 03/02/22 09/08/23 History mcg/actuation nasal spray,suspension levocetirizine 5 mg tablet 5 mg PO DAILY PRN Allergy Symptoms 03/02/22 09/08/23 History metolazone 2.5 mg tablet 2.5 mg PO UD 03/02/22 09/08/23 History montelukast 10 mg tablet 10 mg PO HS 03/02/22 09/08/23 History multivitamin 1 tab PO DAILY 03/02/22 09/08/23 History acetaminophen 325 mg tablet 650 mg (2 x 325 mg) PO Q4H PRN 03/04/22 09/08/23 Rx pain #30 tabs loratadine 10 mg tablet 10 mg PO DAILY PRN allergies 08/30/23 09/08/23 History tiotropium bromide 2.5 2 puff inhalation DAILY 08/30/23 09/08/23 History mcg/actuation mist for inhalation (Spiriva Respimat) sodium chloride 7 % for 4 ml NEB BIDR #240 mL 09/04/23 09/08/23 Rx nebulization guaifenesin 600 mg tablet, 600 mg PO Q12 PRN mucus 09/08/23 09/08/23 History extended release 12 hr (Mucinex) prednisone 20 mg tablet 0 mg PO DAILY 09/08/23 09/08/23 History semaglutide 1 mg/dose (4 mg/3 mL) 4 mg subcut WK 09/08/23 09/08/23 History subcutaneous pen injector (Ozempic) Patient History Medical History (Updated 09/08/23 @ 12:56 by Jefferson Bowie MD) BPH (benign prostatic hyperplasia) DMII (diabetes mellitus, type 2) CHF (congestive heart failure), NYHA class III Pulmonary blastomycosis Chronic respiratory failure Pulmonary HTN HTN (hypertension) Right-sided heart failure ANGELES (obstructive sleep apnea) Pulmonary sarcoidosis Depression Surgical History H/O right heart catheterization [facility] [place] S/P bronchoscopy Hx of tonsillectomy Family History Other Cancer Sarcoidosis Social History Smoking Status: Never smoker Tobacco Type: Smokeless Tobacco (Dip or Chew) Second Hand Exposure: No; Do You Dip or Chew Tobacco: Yes; Tobacco Cessation Education Requested by Patient: No Hx Alcohol Use: Yes Alcohol type: beer Hx Substance Use: No Preferred Language: Kinyarwanda Communication Ability: Effective Veneer Sawyer Required: No Beliefs That Will Affect Care: None marital status: Single Current Living Situation: Alone How many Children do You have: 0 Other Information That Helps Us Care for You: No Feels Safe at Home: Yes Assistive Devices: BiPap, Glasses, Nebulizer and Oxygen - Continuous Review of Systems Review of Systems: reviewed, per HPI Physical Exam Physical Exam: Constitutional: ill appearing, wearing bipap, able to speak in partial sentences, WDWN HEENT: NCAT CV: regular rhythm, no murmur appreciated, extremities well-perfused, no LE edema Resp: diffuse crackles throughout b/l lung moser, globally decreased air movement, no wheeze appreciated MSK: no gross deformities appreciated Skin: warm, dry, no rash appreciated Neuro: alert, no focal neurologic deficit appreciated Results & Data Results & Data Vital Signs (Past 12 Hours) Vital Signs Temp Pulse Pulse Resp BP BP Pulse Ox 09/08/23 09:54 89 19 102/69 94 09/08/23 08:04 91 H 24 93 09/08/23 07:00 87 19 132/89 92 09/08/23 05:54 98 H 24 95 09/08/23 05:54 98 H 24 146/98 H 95 09/08/23 05:13 96 09/08/23 04:21 123 H 09/08/23 04:00 36.8 C 112 H 21 105/84 96 09/08/23 04:00 O2 Del Method O2 Flow Rate 09/08/23 09:54 BiPAP 8 09/08/23 08:04 Non-rebreather 10 09/08/23 07:00 Oxymask 10 09/08/23 05:54 Oxymask 10 09/08/23 05:54 Oxymask 10 09/08/23 05:13 Non-rebreather 10 09/08/23 04:21 09/08/23 04:00 Non-rebreather 15 09/08/23 04:00 Non-rebreather 15 Resident Activity Tracking Resident Involvement: Resident Care Provided Care Provided: Adult Hospital Medicine
[2023-09-08] MEDS: methylPREDNISolone 40 MG in SYRINGE 0 ML IV SCH (11:20)
[2023-09-08] MEDS: LOSARTAN POTASSIUM 25 MG TAB PO SCH (11:24)
[2023-09-08] MEDS: TORSEMIDE 20 MG TAB PO SCH (11:24)
[2023-09-08] MEDS: SODIUM CHLOR 7% 4 ML NEB NEB SCH (11:56)
--- OUTSIDE RECORDS SUMMARY | 2023-09-08 12:04 | External Medical Summary | Summary of Care ---
Author Name Unknown Organization [facility] Address [address] [place] [address] Phone [phone] Care Team Providers Care Asbestos Removal Supervisor Name Role Phone Andrzej Downing MD Primary Care Provider [phone] Reason for Visit * Reason Comments Follow Up Encounter Details Date Type Department Care Team (Late st Contact Info) Description 09/07/2023 1:30 PM EDT Office Visit Cardiology, [facility] [address] [place] [address] Beni Watson DO [address] [place] [address] Chronic right-sided heart failure (HCC)*; Essential hypertension with goal blood pressure less than 130/80; Congestive heart failure with LV diastolic dysfunction, NYHA class 3 (HCC) Allergies Active Allergy Reactions Criticality Noted Date Comments Doxycycline Other (Please comment) Low 07/25/2013 Headache documented as of this encounter (statuses as of 09/07/2023) Medications Medication Sig Dispensed Refills Start Date [...] failure managing provider or [facility] [employer] 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 1 Each 0 05/12/2018 Active Fluticasone Propionate 50 MCG/ACT Nasal Suspension (FLONASE)Indicatio ns:Nasal polyp Administer 2 Sprays into each nostril daily. Use in morning 48 g 3 05/27/2020 Active Additional Information Patient taking differently:2 [place] Each Nostril Daily(AM),Use in morning as needed, Indications: allergies, Reported on 04/22/2022 Azelastine HCl 0.1 % Nasal SolutionIndication s:Seasonal allergic rhinitis due to pollen Administer 1 [place] into nostril 2 times a day. 30 mL 12 09/12/2020 Active Additional Information Patient taking differently:1 [place] NasalBID PRN, Reported on 04/22/2022 Cromolyn Sodium 4 % Ophthalmic Solution (Crolom)Indication s:Seasonal allergic rhinitis due to pollen Instill 1 Drop into both eyes 4 times a day as needed for Allergies or Itching. 10 mL 1 09/12/2020 Active Spiriva Respimat 2.5 MCG/ACT Inhalation Aerosol Solution (Tiotropium [place] Monohydrate)Indica tions:breathing Inhale by mouth 2 Puffs [...] diastolic dysfunction, NYHA class 3 ([facility]) take 4 tablets by mouth twice a day 240 Tablet 11 06/14/2023 Active Ozempic (1 MG/DOSE) 4 MG/3ML Subcutaneous Solution Pen-injector (Semaglutide (1 MG/DOSE))Indicatio ns:Type 2 diabetes mellitus with hemoglobin A1c goal of less than 7.0% ([facility]) INJECT 1MG UNDER THE SKIN ONCE WEEKLY 3 mL 06/14/2023 Active Albuterol Sulfate HFA 108 (90 Base) MCG/ACT Inhalation Aerosol Solution INHALE 2 PUFFS BY MOUTH EVERY 4 HOURS NEEDED FOR COUGH, SHORTNESS OF BREATH OR WHEEZING. 18 g 5 07/02/2023 Active Multivitamin Adult Oral Tablet Take 1 Tablet by mouth in the morning. 0 Active Ascorbic Acid 500 MG Oral Tablet Take 1 Tablet by mouth every morning. 0 Active Hospital, Clinic, or Other Facility Administered Medication Ordered Dose Route Frequency Start Date End Date Status albuterol sulfate (PROVENTIL) (2.5 MG/3ML) 0.083% inhalation solution 2.5 mgIndications:Pulmonary hypertension (HCC),Chronic right-sided heart failure (HCC),Sarcoidosis,Oxygen dependent 2.5 mg NEBULIZER Q4H PRN 06/03/2017 Active documented as of this encounter (statuses as of 09/07/2023) Active Problems Problem Noted Date Diagnosed Date [...] as of this encounter (statuses as of 09/07/2023) Resolved Problems Problem Noted Date Diagnosed Date [...] Paranasal sinus disease 07/19/201306/07 [employer] Other*[id number] 06/08/2013 07/13/2016 Overview: Study Title: [employer] Markers for Patients with Cardiovascular Disease Project # [id number] Dispatch Manager: Ariana Brady MD [phone] HTN, goal below 130/80 06/03/201302/25 Cholecystolithiasis 09/20/2012 07/02/19 19 Obesity, Class III, BMI 40-4 9.9 (morbid obesity) 12/23/2011 01/05/2017 terminologist current use of systemic steroids 11/05/2011 [...] as of this encounter (statuses as of 09/07/2023) Immunizations Name Administration Dates Next Due COVID-19 [...] Sign Reading Time Taken Comments Blood Pressure 110/70 09/07/2023 1:28 PM EDT Pulse 84 09/07/2023 1:28 PM EDT Temperature - - Respiratory Rate 22 09/07/2023 1:28 PM EDT Oxygen Saturation 94% 09/07/2023 1:28 PM EDT on 4L/min 02 Inhaled Oxygen Concentration - - Weight 103.9 kg (229 lb) 09/07/2023 1:28 PM EDT Height - - Body Mass Index 32.86 04/04/2023 2:11 PM EDT documented in this [...] as of this encounter Progress Notes * Beni Watson, DO - 09/07/2023 1:44 PM EDT Cardiology Outpatient Follow-up Guero Pugh is a 52 year old male who is seen for follow-up of cor pulmonale. HPI: This is a 52-year-old male patient with history of sarcoidosis with chronic lung disease and right-sided heart failure. Recently he was admitted to the hospital with hypoxic respiratory failure, parainfluenza infection, COPD exacerbation and CHF. He spent several days in the hospital and was eventually discharged. Today he states he has not 100% but he is getting better. He has not nearly as short of breath is when he was when he went into the hospital. He is tolerating his medications. Past Medical History: Diagnosis Date BMI 35-39 ISOLATED (SEE ACTUAL BMI) 11/17/2009 Per Obesity Protocol, #19 C. difficile colitis Cholecystolithiasis 09/20/2012 Chronic steroid use 11/05/2011 DEPRESSIVE DISORDER NEC 03/22/2000 Enlarged prostate without lower urinary tract symptoms (luts) Hypoxia, sleep related 09/02/2011 04/04/12 -- 3 LPM through BIPAP Care Plus Oxygen Immunocompromised, acquired (HCC) 08/19/2011 penitentiary current use of systemic steroids 11/05/2011 Obesity, Class III, BMI 40-49.9 (morbid obesity) (HCC) 12/23/2011 On home oxygen therapy ANGELES (obstructive sleep apnea) 12/24/2011 AHI 91.5 on baseline 12/10/11 Significant resting hypoxemia and nocturnal hypoxemia Pneumothorax 01/16/2016 Pulmonary blastomycosis (HCC) Pulmonary hypertension (HCC) Sarcoidosis Sarcoidosis, stage 2 ([facility]) 03/19/2018 Patient Active Problem List Diagnosis Code Severe obstructive sleep apnea G47.33 Chronic right-sided heart failure (HCC) I50.812 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, T38.0X5A Congestive heart failure with LV diastolic dysfunction, NYHA class 3 ([facility]) I50.30 Sarcoidosis of lung ([facility]) D86.0 History of Clostridium difficile colitis Z86.19 Type 2 diabetes mellitus with hemoglobin A1c goal of less than 7.0% ([facility]) E11.9 Pulmonary hypertension associated with sarcoidosis (HCC) I27.29, D86.9 Oxygen dependent Z99.81 Depression, major, recurrent, in remission ([facility]) F33.40 Gastroesophageal reflux disease without esophagitis K21.9 Chronic cor pulmonale ([facility]) I27.81 Essential hypertension with goal blood pressure less than 130/80 I10 History of 2019 novel coronavirus disease (COVID-19) Z86.16 Chronic respiratory failure with hypoxia and hypercapnia ([facility]) J96.11, J96.12 Chronic obstructive pulmonary disease (HCC) J44.9 Obesity hypoventilation syndrome ([facility]) E66.2 Hypertensive heart disease with chronic right-sided congestive heart failure ([facility]) I11.0, I50.812 Pulmonary hypertension due to left heart disease (HCC) I27.22 Pulmonary hypertension due to lung diseases and hypoxia ([facility]) I27.23 Past Surgical History: Procedure Laterality Date BRONCHOSCOPY, DIAGNOSTIC 01/31/2012 BRONCHOSCOPY DIAGNOSTIC WITH OR WITHOUT WASHING performed [place]i Tracey [place] [facility] [place], [place] 07/22/2014 BRONCHOSCOPY DIAGNOSTIC WITH OR WITHOUT WASHING performed by Beni Tracey MD [place] [facility] [place], DIAGNOSTIC 11/01/2014 BRONCHOSCOPY DIAGNOSTIC WITH OR WITHOUT WASHING performed by La Mcnamara MD [place] [facility] [place]ON[place]OSCOPY, DIAGNOSTIC N/A 10/14/2015 BRONCHOSCOPY DIAGNOSTIC WITH OR WITHOUT WASHING performed by Sara Stephen MD [place] [facility] [place] CORONARY ANGIOGRAPHY W/RIGHT+LEFT CATH 06/08/2013 CORONARY ANGIOGRAPHY W/RIGHT+LEFT CATH performed by Haresh Wade DO [place] [facility] [place] EGD, FLEXIBLE, PLACE GASTRO TUBE N/A 07/31/2014 ESOPHAGOGASTRODUODENOSCOPY (EGD), FLEXIBLE, TRANSORAL, WITH PERCUTANEOUS GASTROSTOMY INSERTION performed by Gary Amin MD [place] [facility] [place] INCISION OF [place], PLANNED N/A 07/31/2014 TRACHEOSTOMY PLANNED performed by Gary Amin MD [place] [facility] [place] INFORMATION Left 05/13/2016 05/13/2016 skin, left upper arm, office procedure with Dr. Jones dx skin and subcutaneous adipose tissue with acute, chronic and granulomatous inflammation with foreign bodyh giant cell reaction to keratin and fibrosis consistent with inflammatory reaction to ruptured cyst/follicle IR BIOPSY Right 05/17/2014 TRANSCATHETER BIOPSY performed by Quan Loomis MD [place] [facility] [place]CE[place]ANEOUS ORDER ([facility] ONLY) June 2013 Basal cell removed from right cheek MISCELLANEOUS ORDER ([facility] ONLY) 06/08/2013 Cardiac Cath MISCELLANEOUS ORDER ([facility] ONLY) ACT 112 signed, 04/06/2019 NAIL BED, PERMANENT REMOVAL W/TUFT AMPUTATION 1987 REMOVAL OF TONSILS, UNDER AGE 11 RIGHT HEART CATH W/ O2 SAT AND CO Right 08/21/2020 RIGHT HEART CATH W/ O2 SAT AND CO performed by Dinesh Armstrong MD [place] [facility] [place] TYMPANOSTOMY TUBES Family History Problem Relation Age of Onset No Past Hx Mother Murdered Endocrine Disorder Father Hyperlipidemia Heart Disorder Grandmother (Paternal) Heart Disorder Grandfather (Paternal) Diabetes Grandfather (Paternal) Heart Disorder Aunt (Unspecified) Cancer Aunt (Unspecified) Cancer Uncle (Unspecified) Other (sarcoid) Uncle (Unspecified) maternal uncle Social History Tobacco Use Smoking status: Never Smokeless tobacco: Current Types: Snuff Tobacco comments: Currently using between 1/2 can to 3/4 can of snuff/day Vaping Use Vaping Use: Never used Substance Use Topics Alcohol use: Yes Comment: 1-2 every couple of weeks Drug use: No Review of patient's allergies indicates: Allergen Reactions Doxycycline Other (Please comment) Headache Current Outpatient Medications Medication Sig Dispense Refill ASPIRIN 81 MG PO TABS 1 tablet by mouth daily DIURETIC TITRATION PLAN If no improvement on day 3, contact heart failure managing provider or [facility] at Home Pole 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 1 Each 0 Azelastine HCl 0.1 % Nasal Solution Administer 1 [place] into nostril 2 times a day. (Patient taking differently: Administer 1 [place] into nostril 2 times a day as needed.) 30 mL 12 Spiriva Respimat 2.5 MCG/ACT Inhalation Aerosol Solution (Tiotropium [place] Monohydrate) Inhale bymouth 2 Puffs in the morning. 4 g 3 oxygen IN GAS 2 LPM during rest, 3 LPM while ambulating, 4 LPM through Trilogy during sleep 1 Each 0 Breo Ellipta 200-25 MCG/ACT Inhalation Aerosol Powder Breath Activated (fluticasone furoate-vilanterol) inhale 1 puff by mouth and INTO THE LUNGS every morning 60 Blister Dosing Unit 3 Losartan Potassium 25 MG Oral Tablet (Cozaar) take 1 tablet by mouth daily 90 Tablet 3 Montelukast Sodium 10 MG Oral Tablet (Singulair) take 1 tablet by mouth at bedtime 90 Tablet 3 Potassium Chloride Bety ER 20 MEQ Oral Tablet Extended Release take 1 tablet by mouth twice a day 180 Tablet 1 Citalopram Hydrobromide 20 MG Oral Tablet (CeleXA) TAKE 1 TABLET BY MOUTH ONCE DAILY 90 Tablet 2 Omeprazole 20 MG Oral Capsule Delayed Release (PriLOSEC) take 1 capsule by mouth every morning before FIRST MEAL OF THE DAY 90 Capsule 2 Tamsulosin HCl 0.4 MG Oral Capsule (Flomax) take 1 capsule by mouth once daily 90 Capsule 1 metFORMIN HCl ER 500 MG Oral Tablet Extended Release 24 Hour (Glucophage XR) take 2 tablets by mouth ONCE daily 180 Tablet 1 metOLazone 2.5 MG Oral Tablet (Zaroxolyn) Take 2.5 mg daily for three days when weight increases 3 pounds in 24 hours or 5 pounds in one week. 30 Tablet 0 Ipratropium-Albuterol 0.5-2.5 (3) MG/3ML Inhalation Solution (Duoneb) Inhale 3 mL via nebulizer every 6 hours as needed for Wheezing or Shortness of Breath (cough). 21 mL 1 Loratadine 10 MG Oral Tablet (Claritin) Take 1 Tablet by mouth in the morning. 30 Tablet 5 Digoxin 125 MCG Oral Tablet (Lanoxin) Take 1 Tablet by mouth in the morning. 90 Tablet 3 Spironolactone 25 MG Oral Tablet (Aldactone) TAKE 1 TABLET BY MOUTH THREE TIMES A DAY 270 Tablet 1 Folic Acid 1 MG Oral Tablet Take 1 Tablet by mouth in the morning. 90 Tablet 3 Torsemide 20 MG Oral Tablet (Demadex) take 4 tablets by mouth twice a day 240 Tablet 11 Ozempic (1 MG/DOSE) 4 MG/3ML Subcutaneous Solution Pen-injector (Semaglutide (1 MG/DOSE)) INJECT 1MG UNDER THE SKIN ONCE WEEKLY 3 mL 5 Albuterol Sulfate HFA 108 (90 Base) MCG/ACT Inhalation Aerosol Solution INHALE 2 PUFFS BY MOUTH EVERY 4 HOURS NEEDED FOR COUGH, SHORTNESS OF BREATH OR WHEEZING. 18 g 5 Multivitamin Adult Oral Tablet Take 1 Tablet by mouth in the morning. Ascorbic Acid 500 MG Oral Tablet Take 1 Tablet by mouth every morning. NEBULIZER COMPRESSOR MISC Use as directed 1 Each 1 NEBULIZER/TUBING/MOUTHPIECE KIT use with nebs 1 Kit 11 Misc. Devices MISC Use as directed. BIPAP at night Glucose Blood (ONETOUCH VERIO) STRP Use up to 4 times a day E11.9 100 Strip 11 ONETOUCH ULTRASOFT LANCETS MISC Use as directed 4 times a day as needed for Hyperglycemia (high sugar) or Hypoglycemia (low sugar). Use up to four times a day as directed 1 Box Dosing Unit 11 Fluticasone Propionate 50 MCG/ACT Nasal Suspension (FLONASE) Administer 2 Sprays into each nostril daily. Use in morning (Patient taking differently: Administer 2 Sprays into each nostril in the morning. Use in morning as needed.) 48 g 3 Cromolyn Sodium 4 % Ophthalmic Solution (Crolom) Instill 1 Drop into both eyes 4 times a day as needed for Allergies or Itching. 10 mL 1 Empagliflozin 25 MG Oral Tablet (Jardiance) take 1 tablet by mouth once daily 90 Tablet 1 FeroSul 325 (65 Fe) MG Oral Tablet (Ferrous Sulfate) TAKE 1 TABLET BY MOUTH ONCE DAILY WITH BREAKFAST 90 Tablet 1 Current Facility-Administered Medications Medication Dose Route Frequency Provider Last Rate Last Admin albuterol sulfate (PROVENTIL) (2.5 MG/3ML) 0.083% inhalation solution 2.5 mg 2.5 mg Nebulizer Q4H PRN Louise Corbett CRNP 2.5 mg at 01/11/20 0950 ROS: Review of Systems: See HPI for pertinent positives. All other review of systems is negative. PHYSICAL EXAMINATION BP 110/70 | Pulse 84 | Resp 22 | Wt 103.9 kg (229 lb) | SpO2 94% Comment: on 4L/min 02 | BMI 32.86 kg/m | BSA 2.27 m Body mass index is 32.86 kg/m. General: no acute distress and stated age Head: normocephalic, no masses, lesions, tenderness or abnormalities Eyes: conjunctiva are pink and non-injected, sclera clear Neck: supple, no adenopathy, no bruits, normal jugular venous pulse, no hepatojugular reflux Chest: normal shape and normal respiratory effort Lungs: clear to auscultation and percussion Cardiac Exam: - regular rate & rhythm, no murmurs gallops or rubs - normal S1, normal S2 Pulses: 2(+) throughout Abdomen: abdomen soft, non-tender, no abnormal masses and no hepatosplenomegaly Musculoskeletal: no gait disturbance, no joint inflammation, no deforming arthritis Extremities: no edema and no cyanosis Neuro: grossly normal exam Laboratory Data Review: EKG today reveals a sinus rhythm with right axis deviation and an incomplete right bundle branch block Impression: 1. Cor pulmonale. 2. Pulmonary hypertension. 3. Chronic hypoxemia on home O2. 4. Sarcoidosis with sarcoid lung disease. Cardiac involvement ruled out by cardiac MRI September 2017. 5. Obesity. 6. Severe obstructive lung disease. 7. Immunocompromised state. 8. History of pulmonary blastomycosis. 9. Normal coronary arteries by cardiac catheterization in July 2016. Plan: As mentioned above the patient is still recovering from his recent hospital admission but slowly improving. He will continue his current medications and have follow-up with us in 6 months or earlier if needed. This chart was completed in part utilizing [employer] Speech Voice Recognition Software. Grammatical errors, random word insertions, prounoun errors, and incomplete sentences are an occasional consequence of this system due to software limitations, ambient noise, and hardware issues. Any formal questions or concerns about the content, text, or information contained within the body of this dictation should be directly addressed to the provider for clarification. I spent a total of 40-54 minutes (exact time 40 mins) on the date of service in preparation, delivery, and documentation of the care provided to Guero Pugh excluding any time spent in the performance of separately billed services. Beni Watson DO Cardiology, [address] [address] 09/07/2023 documented in this encounter Nursing Notes * Donell Story RN - 09/07/2023 1:26 PM EDT Examination Room: room 16 Name: Guero Pugh Date of : (1970). Reason for Visit: for follow up Interim Hospitalization(s): denies Problems/Concerns: denies Chest Pain/SOB: very [place]/ denies chest pain [facility] Discussed: Yes [facility] is a way you can talk to your provider online through e-mail. Would you like to sign up? I can activate it for you? ALREADY ACTIVE Patient was instructed to not get up on the exam table until directed and assisted by their provider; patient is to remain seated in the chair/ wheelchair/ exam table for fall prevention and safety reasons. Patient is aware to have assistance to step down off exam table with personnel. Patient voiced full comprehension of instructions. documented in this encounter Plan of Treatment Upcoming Encounters Date Type Department Care Team (Late st Contact Info) Description 09/12/2023 11:00 AM EDT Office Visit [place] [address] [place] [id number] Andrzej Downing MD [address] [place] [address] 10/24/2023 2:00 PM EDT [facility] [place] [address] [facility] [id number] Anrdzej Downing MD [address] [place] [place] [address] 11/16/2023 11:30 AM EDT Imaging Radiology, [place] [address] [facility] [place] [address] 11/16/2023 1:00 PM EDT Office Visit Rheumatology [place] [address] [facility] [place] [address] Faustino Delgado MD [address] [facility] [address] 02/15/2024 2:00 PM EDT Office Visit Cardiology, [facility] [address] [facility] [place] [address] Tresa Hammonds CRNP [address] [facility] [place] [address] 02/15/2024 2:30 PM EDT Nutrition Services Nutrition & Weight Management, [facility] [address] [facility] [place] [address] Louise Zarate RDN [address] [facility] [place] [address] Scheduled Orders Name Type Priority Associated Diagnoses Orde r Schedule EKG COMPLETE (TRACING AND INTERP) EKG Routine Chronic right-sided heart failure (HCC) Essential hypertension with goal blood pressure less than 130/80 Congestive heart failure with LV diastolic dysfunction, NYHA class 3 (HCC) Ordered: 09/07/2023 Health Maintenance Due Date Last Done Comments [...] ASSESSMENT COMPLETED IN PAST YEAR FOR COPD 09/06/2024 09/07/2023 Lipid Panel 03/30/2027 03/30/2022, 08/06, 07/21/2020, Additional history exists DTaP,Tdap,and Td Vaccines (3 - Td or Tdap) 09/18/2028 09/18/2018, 09/11/2008 Pneumococcal Vaccine: Pediatrics (0 to 5 Years) and At-Risk Patients (6 to 64 Years) (3 of 3 - PPSV23 or PCV20) 2034 05/20/2017, 04/19/2014, 04/14/2009 VITAMIN D LEVEL ONCE IN A LIFETIME-USE SMARTSET# [id number] Completed 09/23/2022, 09/03/2021, 08/30/2018, Additional history exists [...] Visit Diagnoses Diagnosis Chronic right-sided heart failure (HCC)- Primary Congestive heart failure, unspecified Essential hypertension with goal blood pressure less than 130/80 Congestive heart failure with LV diastolic dysfunction, [...] the patient have Health Care Power of Agency Service Coordinator? No Care Teams Asbestos Removal Supervisor Relationship Specialty Start Date End Date Andrzej Downing MD [address] [place] [address] PCP - General Family Medicine 03/20/19 documented as of this encounter"
--- OUTSIDE RECORDS SUMMARY | 2023-09-08 12:04 | External Medical Summary | Summary of Care ---
Author Name Unknown Organization [facility] Address [address] [place] [address] Phone [phone] Care Team Providers Care Mercury Cell Cleaner Name Role Phone Andrzej Downing MD Primary Care Provider +1- [phone] Reason for Visit * Reason Onset Date Comments FYI 09/01/2023 Pt is admitted Encounter Details Date Type Department Care Team (Late st Contact Info) Description 09/01/2023 Telephone Pulmonary Medicine, [facility] [address] [facility] [place] [address] Jyotsna Shah CRNP [address] [place] [address] FY (Pt is admitted) Allergies Active Allergy Reactions Criticality Noted Date [...] failure managing provider or [facility] Junior Mechanical Engineer. 1 Each 0 05/12/2018 Active Fluticasone Propionate 50 MCG/ACT Nasal Suspension (FLONASE)Indicatio ns:Nasal polyp Administer 2 Sprays into each nostril daily. Use in morning 48 g 3 05/27/2020 Active Additional Information Patient taking differently:2 [place] Each Nostril Daily(AM),Use in morning as needed, Indications: allergies, Reported on 04/22/2022 Azelastine HCl 0.1 % Nasal SolutionIndication s:Seasonal allergic rhinitis due to pollen Administer 1 [place] into nostril 2 times a day. 30 mL 12 09/12/2020 Active Additional Information Patient taking differently:1 [place] NasalBID PRN, Reported on 04/22/2022 Cromolyn Sodium 4 % Ophthalmic Solution (Crolom)Indication s:Seasonal allergic rhinitis due to pollen Instill 1 Drop into both eyes 4 times a day as needed for Allergies or Itching. 10 mL 1 09/12/2020 Active Spiriva Respimat 2.5 MCG/ACT Inhalation Aerosol Solution (Tiotropium [place] Monohydrate)Indica tions:breathing Inhale by mouth 2 Puffs [...] hemoglobin A1c goal of less than 7.0% ([facility]) INJECT 1MG UNDER THE SKIN ONCE [...] Paranasal sinus disease 07/19/201306/07 [employer] Other*[id number] 06/08/2013 07/13/2016 Overview: Study Title: Genomic Markers for Patients with Cardiovascular Disease Project # [id number] Program Trainer: Ariana Brady MD [phone] HTN, goal below 130/80 06/03/201302/25 Cholecystolithiasis 09/20/2012 07/02/19 19 Obesity, Class III, BMI 40-4 9.9 (morbid obesity) 12/23/2011 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 Will be making a follow up appt in pulm since discharge from [facility] * Telephone Encounter - Jyotsna Shah CRNP - 09/02/2023 1:33 PM EDT No blood work needed at this time. * Telephone Encounter - Yogesh Godinez OSA - 09/01/2023 9:15 AM EDT Pt calling wanting to make Jyotsna DECKER aware that pt is admitted at [facility] with influenza andCOPD. Pt asking if he could speak with Jyotsna DECKER directly. Pt asking if there is any blood workshe would want pt to have while in the hospital. documented in this encounter Plan of Treatment Upcoming Encounters Date Type Department Care Team (Late st Contact Info) Description 09/12/2023 11:00 AM EDT Office Visit [place] [address] [place] [phone] Andrzej Downing MD [address] [place] [address] 10/24/2023 2:00 PM EDT [facility] [address] [facility] [phone] Andrzej Downing MD [address] [place] [address] 11/16/2023 11:30 AM EDT Imaging Radiology, [place] [address] [facility] [place] [address] 11/16/2023 1:00 PM EDT Office Visit Rheumatology [place] [address] [place] [address] Faustino Delgado MD [address] [facility] [place] [address] 02/15/2024 2:00 PM EDT Office Visit Cardiology, [facility] [address] [facility] [address] Tresa Hammonds CRNP [address] [place] [address] 02/15/2024 2:30 PM EDT Nutrition Services Nutrition & Weight Management, [facility] [address] [facility] [place] [address] Louise Zarate RDN [address] [place] [address] Health Maintenance Due Date Last Done Comments [...] D LEVEL ONCE IN A LIFETIME-USE SMARTSET# [id number] Completed 09/23/2022, 09/03/2021, 08/30/2018, Additional history exists [...] the patient have Health Care Power of Board Finisher? No Care Teams Mercury Cell Cleaner Relationship Specialty Start Date End Date Andrzej Downing MD [address] [place] [address] PCP - General Family Medicine 03/20/19 documented as of this encounter
--- OUTSIDE RECORDS SUMMARY | 2023-09-08 12:04 | External Medical Summary | Summary of Care ---
Author Name Unknown Organization [facility] Address [address] [place] [address] Phone [phone] Care Team Providers Care Green House Manager Name Role Phone Andrzej Downing MD Primary Care Provider +1- [phone] Encounter Details Date Type Department Care Team (Late st Contact Info) Description 09/07/2023 Telephone Sleep Disorders Ctr [facility] [address] [place] [address] Jyotsna Shah CRNP [address] [place] [address] Allergies Active Allergy Reactions Criticality Noted Date [...] failure managing provider or [facility] Assistant Signal Maintainer. 1 Each 0 05/12/2018 Active Fluticasone Propionate 50 MCG/ACT Nasal Suspension (FLONASE)Indicatio ns:Nasal polyp Administer 2 Sprays into each nostril daily. Use in morning 48 g 3 05/27/2020 Active Additional Information Patient taking differently:2 [place] Each Nostril Daily(AM),Use in morning as needed, Indications: allergies, Reported on 04/22/2022 Azelastine HCl 0.1 % Nasal SolutionIndication s:Seasonal allergic rhinitis due to pollen Administer 1 [place] into nostril 2 times a day. 30 mL 12 09/12/2020 Active Additional Information Patient taking differently:1 [place] NasalBID PRN, Reported on 04/22/2022 Cromolyn Sodium 4 % Ophthalmic Solution (Crolom)Indication s:Seasonal allergic rhinitis due to pollen Instill 1 Drop into both eyes 4 times a day as needed for Allergies or Itching. 10 mL 1 09/12/2020 Active Spiriva Respimat 2.5 MCG/ACT Inhalation Aerosol Solution (Tiotropium [place] Monohydrate)Indica tions:breathing Inhale by mouth 2 Puffs [...] goal of less than 7.0% ([facility]) INJECT 1MG UNDER THE SKIN [...] Paranasal sinus disease 07/19/201306/07 [employer] Other*[id number] 06/08/2013 07/13/2016 Overview: Study Title: Genomic Markers for Patients with Cardiovascular Disease Project # [id number] Finisher Fine Diamond Dies: Ariana Brady MD [phone] HTN, goal below 130/80 06/03/201302/25 Cholecystolithiasis 09/20/2012 07/02/19 19 Obesity, Class III, BMI 40-4 9.9 (morbid obesity) 12/23/2011 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 Wondered if he need to see her again. Please advise. documented in this encounter Plan of Treatment Upcoming Encounters Date Type Department Care Team (Late st Contact Info) Description 09/12/2023 11:00 AM EDT Office Visit [address] [phone] Andrzej Downing MD [address] [place] [address] 10/24/2023 2:00 PM EDT Office Visit [address] [phone] Andrzej Downing MD [address] [place] [address] 11/16/2023 11:30 AM EDT Imaging Radiology, [address] [address] 11/16/2023 1:00 PM EDT Office Visit Rheumatology [address] [address] Faustino Delgado MD [address] [place] [address] 02/15/2024 2:00 PM EDT Office Visit Cardiology, [facility] [address] [facility] [place] [address] Tresa Hammonds CRNP [address] [facility] [place] [address] 02/15/2024 2:30 PM EDT Nutrition Services Nutrition & Weight Management, [facility] [address] [place] [address] Louise Zarate, RDN [address] [place] [address] Health Maintenance Due Date Last Done Comments [...] 2023 08/08/2020, 07/11/2020 DXA Scan 02/17/2023 02/17/2021, 0810/2018, 01/05/2017, Additional [...] D LEVEL ONCE IN A LIFETIME-USE SMARTSET# [id number] Completed 09/23/2022, 09/03/2021, 08/30/2018, Additional history exists [...] the patient have Health Care Power of Mail Processing Equipment Mechanic? No Care Teams Green House Manager Relationship Specialty Start Date End Date Andrzej Downing MD [address] [place] [address] PCP - General Family Medicine 03/20/19 documented as of this encounter
--- OUTSIDE RECORDS SUMMARY | 2023-09-08 12:05 | External Medical Summary | Summary of Care ---
Author Name Unknown Organization [facility] Address [address] [place] [address] Phone [phone] Care Team Providers Care Public Health Administrator Name Role Phone Andrzej Downing MD Primary Care Provider +1- [phone] Reason for Visit * Reason Onset Date Comments Advice 08/29/2023 Re: order for CP AP supplies Encounter Details Date Type Department Care Team (Late st Contact Info) Description 08/29/2023 Telephone Access Center, [facility] [address] [facility] *DO NOT REMOVE THIS DEPARTMENT* [place] [address] Services, Scheduling [address] [place] [address] Advice (Re: order for CPAP supplies) Allergies Active Allergy Reactions Criticality Noted Date Comments Doxycycline Other (Please comment) Low 07/25/2013 Headache documented as of this encounter (statuses as of 08/31/2023) Medications Medication Sig Dispensed Refills Start Date [...] failure managing provider or [facility] Ship Mate. 1 Each 0 05/12/2018 Active Fluticasone Propionate 50 MCG/ACT Nasal Suspension (FLONASE)Indicatio ns:Nasal polyp Administer 2 Sprays into each nostril daily. Use in morning 48 g 3 05/27/2020 Active Additional Information Patient taking differently:2 [place] Each Nostril Daily(AM),Use in morning as needed, Indications: allergies, Reported on 04/22/2022 Azelastine HCl 0.1 % Nasal SolutionIndication s:Seasonal allergic rhinitis due to pollen Administer 1 [place] into nostril 2 times a day. 30 mL 12 09/12/2020 Active Additional Information Patient taking differently:1 [place] NasalBID PRN, Reported on 04/22/2022 Cromolyn Sodium 4 % Ophthalmic Solution (Crolom)Indication s:Seasonal allergic rhinitis due to pollen Instill 1 Drop into both eyes 4 times a day as needed for Allergies or Itching. 10 mL 1 09/12/2020 Active Spiriva Respimat 2.5 MCG/ACT Inhalation Aerosol Solution (Tiotropium [place] Monohydrate)Indica tions:breathing Inhale by mouth 2 Puffs [...] A1c goal of less than 7.0% ([facility]) INJECT 1MG UNDER THE SKIN ONCE WEEKLY [...] as of this encounter (statuses as of 08/31/2023) Active Problems Problem Noted Date Diagnosed Date [...] as of this encounter (statuses as of 08/31/2023) Resolved Problems Problem Noted Date Diagnosed Date [...] Paranasal sinus disease 07/19/201306/07 [employer] Other*[id number] 06/08/2013 07/13/2016 Overview: Study Title: Genomic Markers for Patients with Cardiovascular Disease Project # [id number] Fur Matcher: Ariana Brady MD [phone] HTN, goal below 130/80 06/03/201302/25 Cholecystolithiasis 09/20/2012 [...] as of this encounter (statuses as of 08/31/2023) Immunizations Name Administration Dates Next Due COVID-19 [...] PM EDT Patient call in stating that [employer] will send a prescription to Jyotsna DECKER for her to authorize new supplies for thi patient , patient state that if he needs to be contacted, best phone number is [phone]. Please advice Thank you scheduling services documented in this encounter Plan of Treatment Upcoming Encounters Date Type Department Care Team (Late st Contact Info) Description 08/31/2023 2:00 PM EDT Cardiac Studies Cardiac Studies, [facility] [address] [place] [address] 09/07/2023 1:30 PM EDT Office Visit Cardiology, [facility] [address] [place] [address] Beni Watson DO [address] [place] [address] 10/06/2023 2:20 PM EDT Office Visit [facility] [address] [place] [address] Andrzej Downing MD [address] [place] [address] 11/16/2023 11:30 AM EDT Imaging Radiology, [address] [place] [address] 11/16/2023 1:00 PM EDT Office Visit Rheumatology [address] [place] [address] Faustino Delgado MD [address] [place] [address] [place] [address] 02/15/2024 2:30 PM EDT Nutrition Services Nutrition & Weight Management, [facility] [address] [address] Louise Zarate RDN [address] [place] [address] Health Maintenance Due Date Last Done Comments [...] D LEVEL ONCE IN A LIFETIME-USE SMARTSET# [id number] Completed 09/23/2022, 09/03/2021, 08/30/2018, Additional history exists [...] the patient have Health Care Power of Sugar Sampler? No Care Teams Public Health Administrator Relationship Specialty Start Date End Date Andrzej Downing MD [address] [place] [address] PCP - General Family Medicine 03/20/19 documented as of this encounter
--- OUTSIDE RECORDS SUMMARY | 2023-09-08 12:05 | External Medical Summary | Summary of Care ---
Author Name Unknown Organization [facility] Address [address] [place] [address] Phone [phone] Care Team Providers Care Ultrasound Manager Name Role Phone Andrzej Downing MD Primary Care Provider +1- [phone] Encounter Details Date Type Department Care Team (Late st Contact Info) Description 09/01/2023 Telephone [facility] [address] [place] [address] Andrzej Downing MD [address] [place] [address] Allergies Active Allergy Reactions Criticality Noted Date Comments Doxycycline Other (Please comment) Low 07/25/2013 Headache documented as of this encounter (statuses as of 09/01/2023) Medications Medication Sig Dispensed Refills Start Date [...] failure managing provider or [facility] Small Appliance Assembly Supervisor. 1 Each 0 05/12/2018 Active Fluticasone Propionate 50 MCG/ACT Nasal Suspension (FLONASE)Indicatio ns:Nasal polyp Administer 2 Sprays into each nostril daily. Use in morning 48 g 3 05/27/2020 Active Additional Information Patient taking differently:2 [place] Each Nostril Daily(AM),Use in morning as needed, Indications: allergies, Reported on 04/22/2022 Azelastine HCl 0.1 % Nasal SolutionIndication s:Seasonal allergic rhinitis due to pollen Administer 1 [place] into nostril 2 times a day. 30 mL 12 09/12/2020 Active Additional Information Patient taking differently:1 [place] NasalBID PRN, Reported on 04/22/2022 Cromolyn Sodium 4 % Ophthalmic Solution (Crolom)Indication s:Seasonal allergic rhinitis due to pollen Instill 1 Drop into both eyes 4 times a day as needed for Allergies or Itching. 10 mL 1 09/12/2020 Active Spiriva Respimat 2.5 MCG/ACT Inhalation Aerosol Solution (Tiotropium [place] Monohydrate)Indica tions:breathing Inhale by mouth 2 Puffs [...] hemoglobin A1c goal of less than 7.0% ([facility]) INJECT 1MG UNDER THE SKIN [...] as of this encounter (statuses as of 09/01/2023) Active Problems Problem Noted Date Diagnosed Date [...] as of this encounter (statuses as of 09/01/2023) Resolved Problems Problem Noted Date Diagnosed Date [...] Paranasal sinus disease 07/19/201306/07 [employer] Other*[id number] 06/08/2013 07/13/2016 Overview: Study Title: Genomic Markers for Patients with Cardiovascular Disease Project # [id number] Industrial Electrical Technician: Ariana Brady MD [phone] HTN, goal below 130/80 06/03/201302/25 Cholecystolithiasis 09/20/2012 [...] as of this encounter (statuses as of 09/01/2023) Immunizations Name Administration Dates Next Due COVID-19 [...] Miscellaneous Notes * Telephone Encounter - Andrzej Downing MD - 09/01/2023 5:33 PM EDT noted * Telephone Encounter - Yogesh Godinez OSA - 09/01/2023 9:13 AM EDT Pt calling wanting to make Dr Downing aware that pt is admitted at [facility] with influenza and COPD flare up. documented in this encounter Plan of Treatment Upcoming Encounters Date Type Department Care Team (Late st Contact Info) Description 09/07/2023 1:30 PM EDT Office Visit Cardiology, [facility] [address] [place] [address] Beni [place] DO [address] [place] [address] 10/24/2023 2:00 PM EDT Office Visit [place] [address] [place] [address] Andrzej Downing MD [address] [place] [address] 11/16/2023 11:30 AM EDT Imaging Radiology, [address] [place] [address] 11/16/2023 1:00 PM EDT Office Visit Rheumatology [address] [place] [address] Faustino Delgado MD [address] [place] [address] [place] [address] 02/15/2024 2:30 PM EDT Nutrition Services Nutrition & Weight Management, [facility] [address] [place] [address] Louise Zarate RDN [address] [place] [address] Health Maintenance Due Date Last Done Comments [...] D LEVEL ONCE IN A LIFETIME-USE SMARTSET# [id number] Completed 09/23/2022, 09/03/2021, 08/30/2018, Additional history exists [...] the patient have Health Care Power of Electric Motor Winders Assembler? No Care Teams Ultrasound Manager Relationship Specialty Start Date End Date Andrzej Downing MD [address] [place] [address] PCP - General Family Medicine 03/20/19 documented as of this encounter
--- OUTSIDE RECORDS SUMMARY | 2023-09-08 12:05 | External Medical Summary | Summary of Care ---
Author Name Unknown Organization [facility] Address [address] [place] [address] Phone [phone] Care Team Providers Care Retort Operator Name Role Phone Andrzej Downing MD Primary Care Provider +1- [phone] Encounter Details Date Type Department Care Team (Late st Contact Info) Description 09/01/2023 Population Health External Data Unspecified Department Allergies Active Allergy Reactions Criticality Noted Date Comments Doxycycline Other (Please comment) Low 07/25/2013 Headache documented as of this encounter (statuses as of 09/06/2023) Medications Medication Sig Dispensed Refills Start Date [...] failure managing provider or [facility] Jowl Trimmer. 1 Each 0 05/12/2018 Active Fluticasone Propionate 50 MCG/ACT Nasal Suspension (FLONASE)Indicatio ns:Nasal polyp Administer 2 Sprays into each nostril daily. Use in morning 48 g 3 05/27/2020 Active Additional Information Patient taking differently:2 [place] Each Nostril Daily(AM),Use in morning as needed, Indications: allergies, Reported on 04/22/2022 Azelastine HCl 0.1 % Nasal SolutionIndication s:Seasonal allergic rhinitis due to pollen Administer 1 [place] into nostril 2 times a day. 30 mL 12 09/12/2020 Active Additional Information Patient taking differently:1 [place] NasalBID PRN, Reported on 04/22/2022 Cromolyn Sodium 4 % Ophthalmic Solution (Crolom)Indication s:Seasonal allergic rhinitis due to pollen Instill 1 Drop into both eyes 4 times a day as needed for Allergies or Itching. 10 mL 1 09/12/2020 Active Spiriva Respimat 2.5 MCG/ACT Inhalation Aerosol Solution (Tiotropium [place] Monohydrate)Indica tions:breathing Inhale by mouth 2 Puffs [...] A1c goal of less than 7.0% ([facility]) INJECT 1MG UNDER THE SKIN [...] as of this encounter (statuses as of 09/06/2023) Active Problems Problem Noted Date Diagnosed Date [...] obstructive sleep apnea 12/24/2011 Overview: 09/04/12 BIPAP /9, 6 LPM -- low 84%, mean 92.7%, <89% 5:12 mins, CIRILO 5.1 09/01/12 -- BIPAP auto 9-15 cwp 12/10/11 PSG -- AHI 91.5, significant hypoxemia [facility] documented as of this encounter (statuses as of 09/06/2023) Resolved Problems Problem Noted Date Diagnosed Date [...] Paranasal sinus disease 07/19/201306/07 [employer] Other*[id number] 06/08/2013 07/13/2016 Overview: Study Title: [employer]omic Markers for Patients with Cardiovascular Disease Project # [id number] Boat Painter: Ariana Brady MD [phone] HTN, goal below 130/80 06/03/201302/25 Cholecystolithiasis 09/20/2012 [...] as of this encounter (statuses as of 09/06/2023) Immunizations Name Administration Dates Next Due COVID-19 [...] 09/07/2023 1:30 PM EDT Office Visit Cardiology, [facility] [address] [place] [address] Beni Watson, [address] [place] [address] 09/12/2023 11:00 AM EDT Office Visit [address] [place] [phone] Andrzej Downing MD [address] [place] [address] 10/24/2023 2:00 PM EDT [facility] [place] [address] [facility] [phone] Andrzej Downing MD [address] [place] [address] 11/16/2023 11:30 AM EDT Imaging Radiology, [address] [place] [address] 11/16/2023 1:00 PM EDT Office Visit Rheumatology [address] [place] [address] Faustino Delgado MD [address] [place] [address] [place] [address] 02/15/2024 2:30 PM EDT Nutrition Services Nutrition & Weight Management, [facility] [address] [place] [address] Louise Zarate RDN [address] [place] [address] Health Maintenance Due Date Last Done Comments [...] Exam 01/02/2022 01/02/2021, 11/08/2018 COVID-19 Vaccine (3 24 season) 2023 08/08/2020, 07/11/2020 DXA Scan 02/17/2023 [...] D LEVEL ONCE IN A LIFETIME-USE SMARTSET# [id number] Completed 09/23/2022, 09/03/2021, 08/30/2018, Additional history exists [...] the patient have Health Care Power of Personal Support Worker? No Care Teams Retort Operator Relationship Specialty Start Date End Date Andrzej Downing MD [address] [place] [address] PCP - General Family Medicine 03/20/19 documented as of this encounter
[2023-09-08] MEDS: FLUTICASONE/VILANTEROL 100/25MCG 14 PUFFS/INHALER INH SCH (12:50)
[2023-09-08] MEDS: AZITHROMYCIN 500 MG in DEXTROSE 5% 250 ML IV STA (12:50)
[2023-09-08] MEDS: ACETYLCYSTEINE 20% INHAL SOLN 4ML ***DISPENSED BY RESP. INH SCH (12:51)
[2023-09-08] MEDS: INSULIN ASPART PER UNIT CHARGE SC SCH (12:52)
[2023-09-08] MEDS: CEFEPIME 2,000 MG in SYRINGE 0 ML IV SCH ×2 (12:56→16:09)
[2023-09-08] MEDS ORDERED: XOPENEX/ATROVENT 1.25mg/0.5MG NEB COMBO NEB SCH (13:00)
[2023-09-08] MEDS: IPRATROPIUM BROMIDE NEB SOLN 0.02% 0.5MG/2.5ML VIAL INH SCH (13:16)
[2023-09-08] MEDS: LEVALBUTEROL 1.25 MG/3 ML NEB NEB SCH (13:16)
--- NOTE | 2023-09-08 13:24 | Billing Data ---
Date of Service September 08, 2023 Coding Level of Care Code 05415 INT INP/OBS CARE
--- NOTE | 2023-09-08 13:52 | Billing Data ---
Date of Service September 08, 2023 Coding Level of Care Code 63820 INT INP/OBS CARE
[2023-09-08] MEDS ORDERED: HEPARIN SOD 5,000 UNIT/0.5 ML VIAL SQ SCH (14:00)
[2023-09-08] MEDS: SPIRONOLACTONE 25 MG TAB PO SCH (16:09)
[2023-09-08] MEDS: guaiFENesin/DEXTROM SYRUP 100MG/10MG 5ML UDC PO PRN (17:16)
[2023-09-08] MEDS ORDERED: SODIUM CHLOR 7% 4 ML NEB NEB SCH (19:00)
[2023-09-08] MEDS ORDERED: guaiFENesin 600 MG TABCR PO SCH (19:00)
[2023-09-08 19:12] LABS: Calcium 8.6 mg/dl (8.6-10.3); Potassium 3.2 mmol/L (3.5-5.1)
[2023-09-08 19:17] LABS: BUN Creatinine Ratio 16.9 (10-20); Creatinine Clr Calc Pharmacy 78.4 ml/min; Est GFR (African American) 72.2 ml/min; Est GFR (Non-African American) 62.3 ml/min
[2023-09-08] MEDS: MONTELUKAST SODIUM 10 MG TABLET PO SCH (20:46)
[2023-09-08] MEDS ORDERED: VANCOMYCIN HCL 1,000 MG in SODIUM CHLORIDE 0.9% 250 ML IV SCH (21:00)
--- OUTSIDE RECORDS SUMMARY | 2023-09-09 00:13 | External Medical Summary | Summary of Care ---
Author Name Unknown Organization [facility] Address [address] [place] [address] Phone [phone] Care Team Providers Care Planer Operator Name Role Phone Andrzej Downing MD Primary Care Provider [phone] Reason for Visit * Reason Comments eRx-Medication Refill Encounter Details Date Type Department Care Team (Late st Contact Info) Description 09/08/2023 Refill Pulmonary Medicine, [facility] [address] [place] [address] Jose Dsouza MD [address] [place] [address] Allergies Active Allergy Reactions Criticality Noted Date Comments Doxycycline Other (Please comment) Low 07/25/2013 Headache documented as of this encounter (statuses as of 09/08/2023) Medications Medication Sig Dispensed Refills Start Date [...] failure managing provider or [facility] [employer]. 1 Each 0 8 Active Fluticasone Propionate 50 MCG/ACT Nasal Suspension (FLONASE)Indicati ons:Nasal polyp Administer 2 Sprays into each nostril daily. Use in morning 48 g 3 0 Active Additional Information Patient taking differently:2 [place]ley Each Nostril Daily(AM),Use in morning as needed, Indications: allergies, Reported on 04/22/2022 Azelastine HCl 0.1 % Nasal SolutionIndicatio ns:Seasonal allergic rhinitis due to pollen Administer 1 Whatley into nostril 2 times a day. 30 mL 12 1 Active Additional Information Patient taking differently:1 [place] NasalBID PRN, Reported on 04/22/2022 Cromolyn Sodium 4 % Ophthalmic Solution (Crolom)Indicatio ns:Seasonal allergic rhinitis due to pollen Instill 1 Drop into both eyes 4 times a day as needed for Allergies or Itching. 10 mL 1 1 Active Spiriva Respimat 2.5 MCG/ACT Inhalation Aerosol Solution (Tiotropium [place] Monohydrate)Indic ations:breathing Inhale by mouth 2 Puffs in the morning. 4 g 3 2 Active oxygen IN GASIndications:Se madan obstructive sleep apnea,Pulmonary hypertension (HCC),Sarcoidosis of lung (HCC) 2 LPM during rest, 3 LPM while ambulating, 4 LPM through Trilogy during sleep 1 Each 0 3 Active Losartan Potassium 25 MG Oral [...] 7.0% ([facility]ER[facility]) take 1 tablet by mouth once daily [...] 7.0% ([facility]ER[facility]) INJECT 1MG UNDER THE SKIN ONCE WEEKLY 3 mL 5 4 Active Albuterol Sulfate HFA 108 (90 Base) MCG/ACT Inhalation Aerosol Solution INHALE 2 PUFFS BY MOUTH EVERY 4 HOURS NEEDED FOR COUGH, SHORTNESS OF BREATH OR WHEEZING. 18 g 5 4 Active Multivitamin Adult Oral Tablet Take 1 Tablet by mouth in the morning. 0 Active Ascorbic Acid 500 MG Oral Tablet Take 1 Tablet by mouth every morning. 0 Active Breo Ellipta 200-25 MCG/ACT Inhalation Aerosol Powder Breath Activated (fluticasone furoate-vilantero l) INHALE 1 PUFF BY MOUTH AND INTO THE LUNGS EVERY MORNING 60 Blister Dosing Unit 6 4 Active Breo Ellipta 200-25 MCG/ACT Inhalation Aerosol Powder Breath Activated (fluticasone furoate-vilantero l) inhale 1 puff by mouth and INTO THE LUNGS every morning 60 Blister Dosing Unit 3 3 09/08/19 24 Discontinued Hospital, Clinic, or Other Facility Administered Medication Ordered Dose Route Frequency Start Date End Date Status albuterol sulfate (PROVENTIL) (2.5 MG/3ML) 0.083% inhalation solution 2.5 mgIndications:Pulmonary hypertension (HCC),Chronic right-sided heart failure (HCC),Sarcoidosis,Oxygen dependent 2.5 mg NEBULIZER Q4H PRN 06/03/2017 Active documented as of this encounter (statuses as of 09/08/2023) Active Problems Problem Noted Date Diagnosed Date [...] as of this encounter (statuses as of 09/08/2023) Resolved Problems Problem Noted Date Diagnosed Date [...] Paranasal sinus disease 07/19/201306/07 [employer] Other*[id number] 06/08/2013 07/13/2016 Overview: Study Title: [employer] Markers for Patients with Cardiovascular Disease Project # [id number] Typo Machine Operator: Ariana Brady MD [phone] HTN, goal below 130/80 06/03/201302/25 Cholecystolithiasis 09/20/2012 07/02/19 19 Obesity, Class III, BMI 40-4 9.9 (morbid obesity) 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 11/05/2011 07/02/2018 [...] as of this encounter (statuses as of 09/08/2023) Immunizations Name Administration Dates Next Due COVID-19 [...] Telephone Encounter - Jose Dsouza MD - 09/08/2023 9:06 AM EDTSigned Prescriptions: Disp Refills Breo Ellipta 200-25 MCG/ACT Inhalation Aer*60 Bli*6 Sig: INHALE 1 PUFF BY MOUTH AND INTO THE LUNGS EVERY MORNING Authorizing Provider: JOSE DSOUZA * Telephone Encounter - Zina Delaney OSA - 09/08/2023 7:43 AM EDTPending Prescriptions: Disp Refills Breo Ellipta 200-25 MCG/ACT Inhalation Aer* 0 Sig: inhale 1 puff by mouth and INTO THE LUNGS every morning * Telephone Encounter - Zina Delaney OSA - 09/08/2023 7:41 AM EDT Pending Prescriptions: Disp Refills Breo Ellipta 200-25 MCG/ACT Inhalation Ae* 0 Sig: INHALE 1 PUFF BY MOUTH AND INTO THE LUNGS EVERY MORNING Most Recent Office Visit Date:04/01/2023 (in office), 09/21/2019 (telemedicine) Next Scheduled Office Visit Date:Visit date not found If no future appointments scheduled, and last appointment is greater than a year ago, please schedule patient for a follow-up appointment Last date the medication was ordered: [id number] Pharmacy: [id number] Please review and sign at your discretion. documented in this encounter Plan of Treatment Upcoming Encounters Date Type Department Care Team (Late st Contact Info) Description 09/12/2023 11:00 AM EDT [address] [id number] Andrzej Downing MD [address] [facility] [place] [id number] 10/24/2023 2:00 PM EDT [address] [phone] Andrzej Downing MD [address] [place] [address] 11/16/2023 11:30 AM EDT [place]iology, [address] [place] [address] 11/16/2023 1:00 PM EDT Office Visit Rheumatology [address] [place] [id number] Faustino Delgado MD [address] [place] [address] [place] [address] 02/15/2024 2:00 PM EDT Office Visit Cardiology, [facility] [address] [place] [address] Tresa Hammonds CRNP [address] [place] [address] 02/15/2024 2:30 PM EDT Nutrition Services Nutrition & Weight Management, [facility] [address] [place] [address] Louise Zarate, RDN [address] [place] [address] Health Maintenance Due Date Last Done Comments [...] D LEVEL ONCE IN A LIFETIME-USE SMARTSET# [id number] Completed 09/23/2022, 09/03/2021, 08/30/2018, Additional history exists [...] the patient have Health Care Power of Industrial Sales Manager? No Care Teams Planer Operator Relationship Specialty Start Date End Date Andrzej Downing MD [address] [place] [address] PCP - General Family Medicine 03/20/19 documented as of this encounter
[2023-09-09 05:13] LABS: BUN Creatinine Ratio 23.6 (10-20); Calcium 8.6 mg/dl (8.6-10.3); Creatinine Clr Calc Pharmacy 92.6 ml/min; Est GFR (African American) 88.4 ml/min; Est GFR (Non-African American) 76.2 ml/min; Magnesium 2.1 mg/dl (1.7-2.4); Phosphorus 3.5 mg/dl (2.5-4.9); Potassium 3.3 mmol/L (3.5-5.1)
[2023-09-09 05:23] LABS: Hematocrit (blood only) 44.8 % (42.0-52.0); Hemoglobin 14.8 g/dl (14.0-18.0); Mean Corpuscular Hemoglobin 30.6 pg (25.0-34.0); Mean Corpuscular Volume 92.8 fL (80.0-100.0); Mean Platelet Volume 8.8 fL (9.4-12.4); Platelet Count 329 K/uL (130-400); RDW Coefficient of Variation 14.3 % (11.5-14.5); RDW Standard Deviation 49.1 fL (36.4-46.3); Red Blood Count 4.83 M/uL (4.70-6.10); White Blood Count 14.64 K/ul (4.8-10.8)
[2023-09-09] MEDS: ASPIRIN 81 MG ECTAB PO SCH (08:47)
[2023-09-09] MEDS: PANTOprazole 40 MG TAB PO SCH (08:48)
[2023-09-09] MEDS: TAMSULOSIN HCL 0.4 MG CAP PO SCH (08:48)
[2023-09-09] MEDS: CITALOPRAM 20 MG TAB PO SCH (08:49)
[2023-09-09] MEDS: FOLIC ACID 1 MG TAB PO SCH (08:49)
[2023-09-09] MEDS: FLUTICASONE PROPIONATE NA SPR 16 GM BTL SCH ×2 (08:49→15:24)
[2023-09-09] MEDS: DIGOXIN 0.125 MG TAB PO SCH (08:49)
[2023-09-09] MEDS: AZITHROMYCIN 250 MG in DEXTROSE 5% 250 ML IV SCH (09:03)
[2023-09-09] MEDS: POTASSIUM CHLORIDE CRTAB 20 MEQ TABCR PO SCH (09:04)
--- NOTE | 2023-09-09 09:06 | Pulmonology Progress Note ---
Date of Service September 09, 2023 Assessment & Plan (1) Pneumonia: Laterality: bilateral Lung location: lower lobe of lung Pneumonia type: due to unspecified organism Qualified Code(s): J18.9 - Pneumonia, unspecified organism (2) Xjkon-go-thmtequ respiratory failure: Respiratory failure complication: hypoxia Qualified Code(s): J96.21 - Acute and chronic respiratory failure with hypoxia (3) Parainfluenza infection: (4) CHF (congestive heart failure), NYHA class III: (5) Pulmonary HTN: (6) Right-sided heart failure: (7) ANGELES (obstructive sleep apnea): (8) Pulmonary sarcoidosis: Plan 52 yo male PMHx COPD, pulmonary sarcoidosis, pHTN, R-heart failure, chronic respiratory failure on 4-5L home O2, ANGELES on bipap nightly, T2DM, HTN, depression, hx of blastomycosis, BPH admitted for increasing shortness of breath. Patient was recently hospitalized 08/30/23-09/04/23 for CHF and COPD exacerbation in setting of parainfluenza infection. Pt states that his breathing never fully returned to baseline after recent hospital stay and he has required consistently 5L home O2. Increase in SOB and cough over the last ~24-48hrs. #Pneumonia CT demonstrates multifocal PNA with L lung predominance white count improving cont cefepime continue azithromycin for atypical coverage hypertonic saline for thick mucous/secretions legionella antigen (-) #Acute on chronic respiratory failure/COPD target O2 90-92% cont duonebs PRN, mucinex flutter valve/incentive spirometry continue solu-medrol 40 q8h #Pulmonary HTN BNP 29, does not appear volume overloaded diuresis as indicated to maintain current or negative volume status #ANGELES continue nightly bipap #Pulmonary Sarcoid not on maintenance therapy defer to [facility] pulm to manage as OP Admission and Anticipated Discharge Date Admission Date: September 08, 2023 Supervising Physician Co-Signing Physician Notes Patient seen and examined. Agree with the note as above aside for any additions/exceptions noted. Urine Legionella antigen was negative. MRSA screen negative. Continue cefepime and azithromycin. Patient clinically improved. He is on baseline 4 to 5 L of supplemental oxygen via nasal cannula. He is currently on 6 L at this time. Transition IV Solu-Medrol to p.o. prednisone. Can continue steroids for 5 days total. Will also add saline rinses and Mucinex for postnasal drip. Anticipate he could be discharged home in the next 1 to 2 days. Will need outpatient pulmonary follow-up with Juan Bhakta. Pulmonary will sign off at this time. Please call with questions. Thank you for the consult Subjective Patient seen and evaluated at bedside this morning. No acute events overnight. Reports breathing is improved since admission. Feels he is bringing up less sputum. Patient denies CP, SOB, abdominal pain, nausea, vomiting, lightheadedness, dizziness, and diarrhea. Review of Systems Review of Systems: reviewed, per HPI Physical Exam Physical Exam: Constitutional: appears improved today, speaking in full sentences, WDWN HEENT: NCAT CV: regular rhythm, no murmur appreciated, extremities well-perfused, no LE edema Resp: decreased crackles, +expiratory wheeze throughout lung moser MSK: no gross deformities appreciated Skin: warm, dry, no rash appreciated Neuro: alert, no focal neurologic deficit appreciated Results & Data Results & Data Vital Signs (Past 12 Hours) Vital Signs Temp Pulse Pulse Resp BP Pulse Ox O2 Del Method 09/09/23 08:49 76 09/09/23 07:53 Nasal Cannula 09/09/23 07:38 36.8 C 78 20 114/75 96 Nasal Cannula 09/09/23 07:36 80 20 97 BiPAP 09/09/23 02:45 36.6 C 82 18 108/64 94 Nasal Cannula 09/09/23 00:17 74 20 93 BiPAP 09/08/23 23:27 36.4 C L 69 18 99/52 L 95 BiPAP 09/08/23 22:39 91 H O2 Flow Rate 09/09/23 08:49 09/09/23 07:53 6 09/09/23 07:38 09/09/23 07:36 6 09/09/23 02:45 09/09/23 00:17 6 09/08/23 23:27 09/08/23 22:39 Resident Activity Tracking Resident Involvement: Resident Care Provided Care Provided: Adult Hospital Medicine
--- NOTE | 2023-09-09 14:13 | Hospitalist Progress Note ---
Date of Service September 09, 2023 Assessment & Plan (1) Cndhw-in-pjbzgio respiratory failure: (2) Pneumonia: (3) Sarcoidosis: (4) ANGELES (obstructive sleep apnea): (5) CHF (congestive heart failure), NYHA class III: (6) Hypokalemia: (7) HTN (hypertension): (8) DMII (diabetes mellitus, type 2): (9) Depression: (10) BPH (benign prostatic hyperplasia): Plan Mr. Pugh is a 52-year-old male who presents to the ED today with shortness of breath and productive cough. He was recently admitted to [facility] from 08/29 to 09/03 with a COPD exacerbation in the setting of a URI secondary to parainfluenza. Additional complex past medical history includes COPD, sarcoidosis of the lung, chronic respiratory failure with 3 to 4 L home supplemental oxygen at baseline, ANGELES(BiPAP at night), right-sided heart failure, pulmonary hypertension, diabetes type 2, HTN, depression, history of C. difficile, history of blastomycosis requiring tracheostomy status post decannulation, and BPH. Leukocytosis 23.02, hypokalemic 3.0, lactate normal, BNP negative, procalcitonin is pending. Chest CTA negative for PE but suggestive of pulmonary hypertension; which is known. Additionally patchy multifocal pneumonia noted in the left lung with chronic pleural effusions and scarring from granulomatosis which is likely related to sarcoidosis. Patient will be admitted to PCU for further evaluation and management of his multifocal pneumonia. Given the complexity of his pulmonary issues will re-involve pulmonology, continue antibiotic coverage and adjust based on sputum, blood, and MRSA screen results. Due to thick sputum continue hypertonic saline nebulizers, will continue IV steroids and await pulmonary recommendations, given patient has pulmonary hypertension continue to keep O2 sats 90 to 92%. Add formotorol + Budesinide, supportive respiratory. Acute on chronic respiratory failure: Pneumonia: Sarcoidosis: Acute; admit to PCU given complexity and possibility of decompensation requiring increased O2 needs Wears 4 to 5 L of O2 at home Admitting Chest CTA neg for PE;suggestive of known pHTN. Patchy multifocal PNA noted L lung with chronic pleural effusions/scarring from granulomatosis; likely related to sarcoidosis. WBC 23.02, lactate normal Blood and sputum cultures ordered and pending Given thickness of sputum hypertonic saline nebs, Atrovent plus Xopenex Mucomyst ordered as adjuvant therapy Flutter valve plus ISB Started on cefepime plus Vanco; DC'd vanco as mrsa screen neg. c/w azithro Urine Legionella antigen neg Solu-Medrol - continue 40 mg IV Q8 Pulm onboard, appreciate recs. Acute on chronic respiratory failure: Acute Target SpO2 90 to 92% given pulmonary hypertension DuoNebs as needed, Mucinex, acetylcysteine Flutter valve and incentive spirometry for supportive treatment ANGELES: Chronic Uses BiPAP nightly; continue Congestive heart failure: Pulmonary hypertension: Chronic Right-sided heart failure; in setting of PHTN Takes torsemide and Cardiac MRI negative 09/21 to rule out heart involvement related to sarcoidosis Follows with Dr. Watson with Cards; last appt 09/07/23; no medication changes with 6 month f/u BNP 29 and appears euvolemic Continue IV steroids 40 mg every 8 Hypokalemia: Monitor and replete. HTN: Chronic Takes losartan, Aldactone and torsemide; DM2: Chronic Mvb-sgjgwtu-vmpkrzmdc Takes metformin; hold while inpatient Placed on SSI ACHS with FSBS Depression: Chronic Takes citalopram; continue Disposition: PCP: Dr. Downing CODE STATUS: Full code VTE prophylaxis: Heparin subcu. Closely monitor for recurrence of hemoptysis. Admission and Anticipated Discharge Date Admission Date: September 08, 2023 Subjective Patient was seen and examined at bedside. Patient was lying in bed, on BPAP, NAD, resting comfortably. Patient reports improving cough, denies further hemoptysis, reports feeling little better. Still feels tired and weak. Patient denies CP, SOB, abdominal pain, nausea, vomiting, lightheadedness, dizziness, and diarrhea. Physical Exam Physical Exam: GENERAL: Alert and oriented x3. NAD, on BPAP. HEENT: No pallor, no icterus. Pupils equal, round and reactive to light. Oral mucosa moist. NECK: No JVD, no neck masses. HEART: S1 and S2 heard. Regular rate and rhythm. No murmur, no gallop. RESPIRATORY SYSTEM: Normal AP diameter. No accessory muscle use. rhonci and crackle diffuse and b/l. ABDOMEN: Soft, bowel sounds present, nontender, no distention. CENTRAL NERVOUS SYSTEM: No facial droop. Speech is clear. Obeys simple commands. Moves extremities. EXTREMITIES: No edema, no erythema seen. Results & Data Results & Data Vital Signs (Past 12 Hours) Vital Signs Temp Pulse Pulse Resp BP Pulse Ox O2 Del Method 09/09/23 12:12 102 H 20 90 Nasal Cannula 09/09/23 11:43 36.7 C 63 18 101/62 98 Nasal Cannula 09/09/23 08:49 76 09/09/23 07:53 Nasal Cannula 09/09/23 07:38 36.8 C 78 20 114/75 96 Nasal Cannula 09/09/23 07:36 80 20 97 BiPAP 09/09/23 02:45 36.6 C 82 18 108/64 94 Nasal Cannula O2 Flow Rate 09/09/23 12:12 6 09/09/23 11:43 09/09/23 08:49 09/09/23 07:53 6 09/09/23 07:38 09/09/23 07:36 6 09/09/23 02:45 (1) Nikae-dr-ozpdkhm respiratory failure Respiratory failure complication: hypoxia Qualified Code(s): J96.21 - Acute and chronic respiratory failure with hypoxia (2) Pneumonia Laterality: bilateral Lung location: lower lobe of lung Pneumonia type: due to unspecified organism Qualified Code(s): J18.9 - Pneumonia, unspecified organism
--- NOTE | 2023-09-09 14:32 | Billing Data ---
Date of Service September 09, 2023 Coding Level of Care Code 92924 SUB INP/OBS CARE
[2023-09-09] MEDS: HEPARIN SOD 5,000 UNIT/0.5 ML VIAL SQ SCH (20:14)
[2023-09-09] MEDS: guaiFENesin 600 MG TABCR PO SCH (20:14)
[2023-09-09] MEDS: SODIUM CHLORIDE 0.65% NA SOLN 45 ML (OCEAN) SCH (20:17)
--- NOTE | 2023-09-10 06:37 | Electrocardiogram Report ---
Test Reason : Blood Pressure : / mmHG Vent. Rate : 112 BPM Atrial Rate : 112 BPM P-R Int : 126 ms QRS Dur : 108 ms QT Int : 368 ms P-R-T Axes : 043 133 036 degrees QTc Int : 502 ms Sinus tachycardia with frequent Premature ventricular complexes Right ventricular hypertrophy Abnormal ECG When compared with ECG of 30-AUG-2023 15:59, Premature ventricular complexes are now Present Confirmed by Rayray Rolle ([id number]) on 09/10/2023 6:37:23 AM Referred By: Andrzej Downing Confirmed By:Rayray Rolle
--- NOTE | 2023-09-10 07:23 | Electrocardiogram Report ---
Test Reason : Blood Pressure : / mmHG Vent. Rate : 065 BPM Atrial Rate : 065 BPM P-R Int : 148 ms QRS Dur : 116 ms QT Int : 394 ms P-R-T Axes : 028 093 144 degrees QTc Int : 409 ms Normal sinus rhythm Possible Right ventricular hypertrophy Abnormal ECG When compared with ECG of 08-SEP-2023 04:12, (unconfirmed) Premature ventricular complexes are no longer Present Vent. rate has decreased BY 47 BPM QRS axis Shifted left Nonspecific T wave abnormality has replaced inverted T waves in Inferior leads T wave inversion now evident in Anterior leads Confirmed by Rayray Rolle ([id number]) on 09/10/2023 7:22:52 AM Referred By: Andrzej Downing Confirmed By:Rayray Rolle
[2023-09-10 08:00] LABS: Hematocrit (blood only) 46.6 % (42.0-52.0); Hemoglobin 15.3 g/dl (14.0-18.0); Mean Corpuscular Hemoglobin 31.2 pg (25.0-34.0); Mean Corpuscular Hgb Conc 32.8 g/dL (32.0-36.0); Mean Corpuscular Volume 94.9 fL (80.0-100.0); Mean Platelet Volume 8.8 fL (9.4-12.4); Platelet Count 331 K/uL (130-400); RDW Coefficient of Variation 14.6 % (11.5-14.5); RDW Standard Deviation 50.9 fL (36.4-46.3); Red Blood Count 4.91 M/uL (4.70-6.10); White Blood Count 12.46 K/ul (4.8-10.8)
[2023-09-10 08:15] LABS: BUN Creatinine Ratio 28.3 (10-20); Calcium 8.9 mg/dl (8.6-10.3); Est GFR (African American) 85.5 ml/min; Est GFR (Non-African American) 73.8 ml/min; Magnesium 2.4 mg/dl (1.7-2.4); Potassium 3.6 mmol/L (3.5-5.1)
[2023-09-10] MEDS: predniSONE 20 MG TAB PO SCH (08:33)
--- NOTE | 2023-09-10 16:33 | Hospitalist Progress Note ---
Date of Service September 10, 2023 Assessment & Plan (1) [id number] respiratory failure: (2) Pneumonia: (3) Sarcoidosis: (4) ANGELES (obstructive sleep apnea): (5) CHF (congestive heart failure), NYHA class III: (6) Hypokalemia: (7) HTN (hypertension): (8) DMII (diabetes mellitus, type 2): (9) Depression: (10) BPH (benign prostatic hyperplasia): Plan Mr. Pugh is a 52-year-old male who presents to the ED today with shortness of breath and productive cough. He was recently admitted to [facility] from 08/29 to 09/03 with a COPD exacerbation in the setting of a URI secondary to parainfluenza. Additional complex past medical history includes COPD, sarcoidosis of the lung, chronic respiratory failure with 3 to 4 L home supplemental oxygen at baseline, ANGELES(BiPAP at night), right-sided heart failure, pulmonary hypertension, diabetes type 2, HTN, depression, history of C. difficile, history of blastomycosis requiring tracheostomy status post decannulation, and BPH. Leukocytosis 23.02, hypokalemic 3.0, lactate normal, BNP negative, procalcitonin is pending. Chest CTA negative for PE but suggestive of pulmonary hypertension; which is known. Additionally patchy multifocal pneumonia noted in the left lung with chronic pleural effusions and scarring from granulomatosis which is likely related to sarcoidosis. Patient will be admitted to PCU for further evaluation and management of his multifocal pneumonia. Given the complexity of his pulmonary issues will re-involve pulmonology, continue antibiotic coverage and adjust based on sputum, blood, and MRSA screen results. Due to thick sputum continue hypertonic saline nebulizers, will continue IV steroids and await pulmonary recommendations, given patient has pulmonary hypertension continue to keep O2 sats 90 to 92%. Add formotorol + Budesinide, supportive respiratory. Acute on chronic respiratory failure: Multifocal pneumonia throughout the left lung: Sarcoidosis: Acute; admit to PCU given complexity and possibility of decompensation requiring increased O2 needs Wears 4 to 5 L of O2 at home Admitting Chest CTA neg for PE;suggestive of known pHTN. Patchy multifocal PNA noted L lung with chronic pleural effusions/scarring from granulomatosis; likely related to sarcoidosis. WBC 23.02, lactate normal Blood cultures are pending and sputum culture grew heavy normal joe Mucomyst ordered as adjuvant therapy Flutter valve plus ISB Started on cefepime plus Vanco; DC'd vanco as mrsa screen neg. c/w azithro Urine Legionella antigen neg Solu-Medrol - continue 40 mg IV Q8 Pulm onboard, appreciate recs. Clinically much better today and has been requiring 4 L to maintain saturation ANGELES: Chronic Uses BiPAP nightly; continue Continue BiPAP nightly and as tolerated during daytime as well Clinically much better Congestive heart failure: Pulmonary hypertension: Chronic Right-sided heart failure; in setting of PHTN Takes torsemide and Cardiac MRI negative 09/21 to rule out heart involvement related to sarcoidosis Follows with Dr. Watson with Cards; last appt 09/07/23; no medication changes with 6 month f/u BNP 29 and appears euvolemic Will continue torsemide 80 mg twice daily and spironolactone 25 mg 3 times daily Will try to give him on the stretcher and drier side Hypokalemia: Monitor and replete. K is normal at 3.6 HTN: Chronic Takes losartan, Aldactone and torsemide; DM2: Chronic [id number]-uaoxyiwdo Takes metformin; hold while inpatient Placed on SSI ACHS with FSBS Depression: Chronic Takes citalopram; continue Disposition: PCP: Dr. Downing CODE STATUS: Full code VTE prophylaxis: Heparin subcu. Closely monitor for recurrence of hemoptysis. Admission and Anticipated Discharge Date Admission Date: September 08, 2023 Subjective 09/10/2023 The patient was seen and examined in telemetry unit He is readmitted with acute respiratory failure secondary to pneumonia Has been feeling a little better Saturating normally on 4 L which is his baseline Review of Systems Review of Systems: All systems reviewed and are unremarkable except as noted below Physical Exam Physical Exam: Lying in bed with minimal respiratory distress on BiPAP Constitutional: well developed, well nourished, + ill appearing and + obese Eyes: PERRL, conjunctivae normal, anicteric sclerae ENMT: external ear and nose normal, oropharynx normal Neck: trachea midline, no thyromegaly Respiratory: + respiratory distress Auscultation: + diminished lung sounds and + crackles (Bibasilar crackles more on the right than the left) Cardiovascular: Rate/Rhythm: regular rate and regular rhythm; not tachycardic Heart Sounds: normal S1 and normal S2; no murmur Extremities: + edema Gastrointestinal (Abdomen): Inspection/Auscultation: normal bowel sounds; abdomen not distended Percussion/Palpation: abdomen soft; abdomen nontender Musculoskeletal: No acute arthritis involving any of the joint Neurologic: normal touch/pain/proprioception and moves all extremities; no focal motor deficits Psychiatric: A+Ox3, euthymic affect Lymphatic: no cervical or axillary lymphadenopathy Results & Data Results & Data Vital Signs (Past 12 Hours) Vital Signs Temp Pulse Pulse Resp BP Pulse Ox O2 Del Method 09/10/23 16:00 36.8 C 82 18 114/74 97 Nasal Cannula 09/10/23 12:20 70 18 91 Nasal Cannula 09/10/23 12:00 37.0 C 75 20 120/70 99 Nasal Cannula 09/10/23 08:35 85 09/10/23 08:01 36.6 C 87 18 129/79 97 Nasal Cannula 09/10/23 07:34 Nasal Cannula 09/10/23 06:54 97 H 16 95 Nasal Cannula O2 Flow Rate 09/10/23 16:00 09/10/23 12:20 4 09/10/23 12:00 6 09/10/23 08:35 09/10/23 08:01 6 09/10/23 07:34 4 09/10/23 06:54 4 Laboratory Results Short CBC 09/10/23 Range/Units 07:27 WBC 12.46 H (4.8-10.8) K/ul Hgb 15.3 (14.0-18.0) g/dl Hct 46.6 (42.0-52.0) % Plt Count 331 (130-400) K/uL BMP 09/10/23 07:27 Sodium 138 Potassium 3.6 Chloride 97 L Carbon Dioxide 35 H BUN 32 H Creatinine 1.13 Glucose 92 Calcium 8.9 Medications Administered Current Inpatient Medications Acetaminophen (Acetaminophen 325 Mg Tab) 650 mg PO Q4H PRN PRN Reason: Pain or Fever Stop: 10/08/23 07:58 Al Hydrox/Mg Hydrox/Simethicone (Aluminum/Magnesium Susp 30 Ml Udc) 15 ml PO Q4H PRN PRN Reason: Dyspepsia Stop: 10/08/23 07:58 Aspirin (Aspirin 81 Mg Ectab) [facility] [place] Stop: 10/09/23 08:59 Last Admin: 09/10/23 08:34 Dose: 81 mg Citalopram Hydrobromide (Citalopram 20 Mg Tab) 20 mg PO QAM [facility] Stop: 10/09/23 08:59 Last Admin: 09/10/23 08:32 Dose: 20 mg Dextrose (Dextrose 50% 50 Ml Syringe) 25 - 50 ml IV UD PRN; Protocol PRN Reason: Hypoglycemia Protocol Stop: 10/08/23 07:58 Digoxin (Digoxin 0.125 Mg Tab) [facility].125 [facility] [place] Stop: 10/09/23 08:59 Last Admin: 09/10/23 08:35 Dose: 0.125 mg Fluticasone Propionate (Fluticasone Propionate Na Spr 16 Gm Btl) 2 sprays NA QAM [facility] Stop: 10/09/23 08:59 Last Admin: 09/10/23 08:34 Dose: 2 sprays Fluticasone Propionate (Fluticasone Propionate Na Spr 16 Gm Btl) 2 sprays NA DAILY [facility] Stop: 10/09/23 14:44 Last Admin: 09/10/23 08:35 Dose: Not Given Fluticasone/Vilanterol (Fluticasone/Vilanterol 100/25mcg 14 Puffs/Inhaler) 1 puffs INH DAILY [facility]; Protocol Stop: 10/08/23 10:59 Last Admin: 09/10/23 08:33 Dose: 1 puffs Folic Acid (Folic Acid 1 Mg Tab) [facility] [place] Stop: 10/09/23 08:59 Last Admin: 09/10/23 08:34 Dose: 1 mg Glucagon (Glucagon For Inj 1 Mg Vial) 1 mg SQ UD PRN; Protocol PRN Reason: Hypoglycemia Protocol Stop: 10/08/23 07:58 Glucose (Glucose 10 Tab/Tube) 4 - 8 tab PO UD PRN; Protocol PRN Reason: Hypoglycemia Treatment Stop: 10/08/23 07:58 Glucose (Glucose 40% Gel 15 Gm Tube) 15 - 30 gm PO UD PRN; Protocol PRN Reason: Hypoglycemia Protocol Stop: 10/08/23 07:58 Guaifenesin (Guaifenesin 600 Mg Tabcr) 600 mg PO Q12 [facility] Stop: 10/09/23 20:59 Last Admin: 09/10/23 08:33 Dose: 600 mg Heparin Sodium (Porcine) (Heparin Sod 5,000 Unit/0.5 Ml Vial) 5,000 units SQ Q12 [facility] Stop: 10/09/23 20:59 Last Admin: 09/10/23 08:33 Dose: 5,000 units Cefepime HCl 2,000 mg/ Syringe 20 mls @ 5 mls/min IV Q8H [facility]; Protocol Stop: 09/15/23 14:59 Last Admin: 09/10/23 14:40 Dose: 5 mls/min Azithromycin 250 mg/ Dextrose 252.5 mls @ 125 mls/hr IV Q24H [facility] Stop: 09/16/23 08:59 Last Infusion: 09/10/23 15:10 Dose: Infused Insulin Aspart (Insulin Aspart Per Unit Charge) 0 units SC ACHS [facility] Stop: 10/08/23 11:29 Last Admin: 09/10/23 14:37 Dose: Not Given Insulin Glargine (Lantus Per Unit Charge) 7 units SQ BID [facility] Stop: 10/08/23 08:59 Last Admin: 09/10/23 08:49 Dose: 7 units Ipratropium [place] (Ipratropium [place] Neb Soln 0.02% 0.5mg/2.5ml Vial) 0.5 mg INH Q6R [facility] Stop: 10/08/23 12:59 Last Admin: 09/10/23 12:18 Dose: 0.5 mg Levalbuterol HCl (Levalbuterol 1.25 Mg/3 Ml Neb) 1.25 mg NEB Q6R [facility] Stop: 10/08/23 12:59 Last Admin: 09/10/23 12:18 Dose: 1.25 mg Losartan Potassium (Losartan Potassium 25 Mg Tab) 25 mg PO QAM [facility] Stop: 10/08/23 09:29 Last Admin: 09/10/23 08:32 Dose: 25 mg Magnesium Hydroxide (Magnesium Hydroxide Susp 30 Ml Udc) 30 ml PO Q12H PRN PRN Reason: Constipation Stop: 10/08/23 07:58 Miscellaneous (Carbohydrates For Hypoglycemia ) 15 - 30 gm PO UD PRN PRN Reason: Hypoglycemia Protocol Stop: 10/08/23 07:58 Montelukast Sodium (Montelukast Sodium 10 Mg Tablet) 10 mg PO HS [facility] Stop: 10/08/23 20:59 Last Admin: 09/09/23 20:15 Dose: 10 mg Ondansetron HCl (Ondansetron Inj 2 Mg/Ml 2 Ml Vial) 4 mg IV Q6H PRN PRN Reason: Nausea Stop: 10/08/23 07:58 Pantoprazole Sodium (Pantoprazole 40 Mg Tab) 40 mg PO QAM [facility]; Protocol Stop: 10/09/23 08:59 Last Admin: 09/10/23 08:34 Dose: 40 mg Prednisone (Prednisone 20 Mg Tab) 40 mg PO DAILY [facility] Stop: 10/10/23 08:59 Last Admin: 09/10/23 08:33 Dose: 40 mg Sodium Chloride (Sodium Chlor 7% 4 Ml Neb) 4 ml NEB BIDR [facility] Stop: 10/08/23 08:09 Last Admin: 09/10/23 06:53 Dose: 4 ml Sodium Chloride (Sodium Chloride 0.65% Na Soln 45 Ml ([place])) 2 sprays NA BID [facility] Stop: 10/09/23 20:59 Last Admin: 09/10/23 08:40 Dose: 2 sprays Spironolactone (Spironolactone 25 Mg Tab) 25 mg PO TID [facility] Stop: 10/08/23 14:59 Last Admin: 09/10/23 14:40 Dose: 25 mg Tamsulosin HCl (Tamsulosin Hcl 0.4 Mg Cap) 0.4 mg PO DAILY [facility] Stop: 10/09/23 08:59 Last Admin: 09/10/23 08:32 Dose: 0.4 mg Torsemide (Torsemide 20 Mg Tab) 80 mg PO BID17 [facility] Stop: 10/08/23 09:29 Last Admin: 09/10/23 08:50 Dose: 80 mg (1) Xylgu-ep-yoqroju respiratory failure Respiratory failure complication: hypoxia Qualified Code(s): J96.21 - Acute and chronic respiratory failure with hypoxia (2) Pneumonia Laterality: bilateral Lung location: lower lobe of lung Pneumonia type: due to unspecified organism Qualified Code(s): J18.9 - Pneumonia, unspecified organism
[2023-09-11 07:30] LABS: Basophils # (auto) 0.01 K/uL (0.00-0.20); Basophils % (auto) 0.1 %; Eosinophils # (auto) 0.08 K/uL (0.00-0.50); Eosinophils % (auto) 0.7 %; Hematocrit (blood only) 46.5 % (42.0-52.0); Hemoglobin 15.3 g/dl (14.0-18.0); Immature Granulocytes # (auto) 0.04 K/uL (0.01-0.20); Immature Granulocytes % (auto) 0.3 %; Lymphocytes # (auto) 1.44 K/uL (1.20-3.40); Lymphocytes % (auto) 12.5 %; Mean Corpuscular Hemoglobin 30.7 pg (25.0-34.0); Mean Corpuscular Hgb Conc 32.9 g/dL (32.0-36.0); Mean Corpuscular Volume 93.4 fL (80.0-100.0); Mean Platelet Volume 8.7 fL (9.4-12.4); Monocytes # (auto) 0.99 K/uL (0.11-0.59); Monocytes % (auto) 8.6 %; Neutrophils # (auto) 8.99 K/uL (1.40-6.50); Neutrophils % (auto) 77.8 %; Platelet Count 317 K/uL (130-400); RDW Coefficient of Variation 14.3 % (11.5-14.5); RDW Standard Deviation 49.4 fL (36.4-46.3); Red Blood Count 4.98 M/uL (4.70-6.10); White Blood Count 11.55 K/ul (4.8-10.8)
[2023-09-11 07:46] LABS: Calcium 9.5 mg/dl (8.6-10.3); Creatinine Clr Calc Pharmacy 101.6 ml/min; Est GFR (African American) 99.2 ml/min; Est GFR (Non-African American) 85.5 ml/min; Magnesium 2.3 mg/dl (1.7-2.4); Phosphorus 3.4 mg/dl (2.5-4.9); Potassium 3.2 mmol/L (3.5-5.1)
[2023-09-11] MEDS: POTASSIUM CHLORIDE CRTAB 20 MEQ TABCR PO STA (09:05)
--- NOTE | 2023-09-11 14:46 | Hospitalist Progress Note ---
Date of Service September 11, 2023 Assessment & Plan (1) Xaqln-vh-eavskue respiratory failure: (2) Pneumonia: (3) Sarcoidosis: (4) ANGELES (obstructive sleep apnea): (5) CHF (congestive heart failure), NYHA class III: (6) Hypokalemia: (7) HTN (hypertension): (8) DMII (diabetes mellitus, type 2): (9) Depression: (10) BPH (benign prostatic hyperplasia): Plan Mr. Pugh is a 52-year-old male who presents to the ED today with shortness of breath and productive cough. He was recently admitted to [facility] from 08/29 to 09/03 with a COPD exacerbation in the setting of a URI secondary to parainfluenza. Additional complex past medical history includes COPD, sarcoidosis of the lung, chronic respiratory failure with 3 to 4 L home supplemental oxygen at baseline, ANGELES(BiPAP at night), right-sided heart failure, pulmonary hypertension, diabetes type 2, HTN, depression, history of C. difficile, history of blastomycosis requiring tracheostomy status post decannulation, and BPH. Leukocytosis 23.02, hypokalemic 3.0, lactate normal, BNP negative, procalcitonin is pending. Chest CTA negative for PE but suggestive of pulmonary hypertension; which is known. Additionally patchy multifocal pneumonia noted in the left lung with chronic pleural effusions and scarring from granulomatosis which is likely related to sarcoidosis. Patient will be admitted to PCU for further evaluation and management of his multifocal pneumonia. Given the complexity of his pulmonary issues will re-involve pulmonology, continue antibiotic coverage and adjust based on sputum, blood, and MRSA screen results. Due to thick sputum continue hypertonic saline nebulizers, will continue IV steroids and await pulmonary recommendations, given patient has pulmonary hypertension continue to keep O2 sats 90 to 92%. Add formotorol + Budesinide, supportive respiratory. Acute on chronic respiratory failure: Multifocal pneumonia throughout the left lung: Sarcoidosis: Acute; admit to PCU given complexity and possibility of decompensation requiring increased O2 needs Wears 4 to 5 L of O2 at home Admitting Chest CTA neg for PE;suggestive of known pHTN. Patchy multifocal PNA noted L lung with chronic pleural effusions/scarring from granulomatosis; likely related to sarcoidosis. WBC 23.02, lactate normal Blood cultures are pending and sputum culture grew heavy normal joe Mucomyst ordered as adjuvant therapy Flutter valve plus ISB Started on cefepime plus Vanco; DC'd vanco as mrsa screen neg. c/w azithro Urine Legionella antigen neg Solu-Medrol - continue 40 mg IV Q8 Pulm onboard, appreciate recs. Symptomatically much improved with decreasing cough and decreasing shortness of breath Back to his baseline requirements of oxygen ANGELES: Chronic Uses BiPAP nightly; continue Continue BiPAP nightly and as tolerated during daytime as well Clinically much better Using BiPAP at times and feeling a lot better Congestive heart failure: Pulmonary hypertension: Chronic Right-sided heart failure; in setting of PHTN Takes torsemide and Cardiac MRI negative 09/21 to rule out heart involvement related to sarcoidosis Follows with Dr. 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 K is normal at 3.6 HTN: Chronic Takes losartan, Aldactone and torsemide; DM2: Chronic Kgj-yzetmgm-qmiozsynt Takes metformin; hold while inpatient Placed on SSI ACHS with FSBS Depression: Chronic Takes citalopram; continue Disposition: PCP: Dr. Downing CODE STATUS: Full code VTE prophylaxis: Heparin subcu. Closely monitor for recurrence of hemoptysis. Admission and Anticipated Discharge Date Admission Date: September 08, 2023 Subjective 09/10/2023 The patient was seen and examined in telemetry unit He is readmitted with acute respiratory failure secondary to pneumonia Has been feeling a little better Saturating normally on 4 L which is his baseline 09/11/2023 The patient was seen and examined in telemetry unit He has been feeling much better today Back to his baseline with oxygen requirements Review of Systems Review of Systems: All systems reviewed and are unremarkable except as noted below Physical Exam Physical Exam: Lying in bed with minimal respiratory distress on BiPAP Constitutional: well developed, well nourished, + ill appearing and + obese Eyes: PERRL, conjunctivae normal, anicteric sclerae ENMT: external ear and nose normal, oropharynx normal Neck: trachea midline, no thyromegaly Respiratory: + respiratory distress Auscultation: + diminished lung sounds and + crackles (Bibasilar crackles more on the right than the left) Cardiovascular: Rate/Rhythm: regular rate and regular rhythm; not tachycardic Heart Sounds: normal S1 and normal S2; no murmur Extremities: + edema Gastrointestinal (Abdomen): Inspection/Auscultation: normal bowel sounds; abdomen not distended Percussion/Palpation: abdomen soft; abdomen nontender Musculoskeletal: No acute arthritis involving any of the joints Neurologic: normal touch/pain/proprioception and moves all extremities; no focal motor deficits Psychiatric: A+Ox3, euthymic affect Lymphatic: no cervical or axillary lymphadenopathy Results & Data Results & Data Vital Signs (Past 12 Hours) Vital Signs Temp Pulse Pulse Resp BP Pulse Ox O2 Del Method 09/11/23 13:09 68 20 91 Nasal Cannula 09/11/23 12:00 36.6 C 79 18 128/63 96 High Flow Nasal Cannula 09/11/23 08:51 75 09/11/23 08:16 36.7 C 76 16 114/79 95 High Flow Nasal Cannula 09/11/23 07:51 Nasal Cannula 09/11/23 07:08 78 20 91 Nasal Cannula 09/11/23 03:36 36.6 C 74 18 112/74 96 High Flow Nasal Cannula O2 Flow Rate 09/11/23 13:09 4 09/11/23 12:00 6 09/11/23 08:51 09/11/23 08:16 6 09/11/23 07:51 4 09/11/23 07:08 4 09/11/23 03:36 6 Laboratory Results Short CBC 09/11/23 Range/Units 07:08 WBC 11.55 H (4.8-10.8) K/ul Hgb 15.3 (14.0-18.0) g/dl Hct 46.5 (42.0-52.0) % Plt Count 317 (130-400) K/uL BMP 09/11/23 07:08 Sodium 137 Potassium 3.2 L Chloride 95 L Carbon Dioxide 36 H BUN 31 H Creatinine 1.00 Glucose 87 Calcium 9.5 Medications Administered Current Inpatient Medications Acetaminophen (Acetaminophen 325 Mg Tab) 650 mg PO Q4H PRN PRN Reason: Pain or Fever Stop: 10/08/23 07:58 Al Hydrox/Mg Hydrox/Simethicone (Aluminum/Magnesium Susp 30 Ml Udc) 15 ml PO Q4H PRN PRN Reason: Dyspepsia Stop: 10/08/23 07:58 Aspirin (Aspirin 81 Mg Ectab) 81 mg PO [facility] Stop: 10/09/23 08:59 Last Admin: 09/11/23 08:53 Dose: 81 mg Citalopram Hydrobromide (Citalopram 20 Mg Tab) 20 mg PO [facility] Stop: 10/09/23 08:59 Last Admin: 09/11/23 08:51 Dose: 20 mg Dextrose (Dextrose 50% 50 Ml Syringe) 25 - 50 ml IV UD PRN; Protocol PRN Reason: Hypoglycemia Protocol Stop: 10/08/23 07:58 Digoxin (Digoxin 0.125 Mg Tab) 0.125 mg PO [facility] Stop: 10/09/23 08:59 Last Admin: 09/11/23 08:51 Dose: 0.125 mg Fluticasone Propionate (Fluticasone Propionate Na Spr 16 Gm Btl) 2 sprays NA QAM [facility] Stop: 10/09/23 08:59 Last Admin: 09/11/23 08:56 Dose: 2 sprays Fluticasone Propionate (Fluticasone Propionate Na Spr 16 Gm Btl) 2 sprays NA DAILY [facility] Stop: 10/09/23 14:44 Last Admin: 09/11/23 08:56 Dose: Not Given Fluticasone/Vilanterol (Fluticasone/Vilanterol 100/25mcg 14 Puffs/Inhaler) 1 puffs INH DAILY [facility]; Protocol Stop: 10/08/23 10:59 Last Admin: 09/11/23 08:55 Dose: 1 puffs Folic Acid (Folic Acid 1 Mg Tab) 1 mg PO [facility] Stop: 10/09/23 08:59 Last Admin: 09/11/23 08:51 Dose: 1 mg Glucagon (Glucagon For Inj 1 Mg Vial) 1 mg SQ UD PRN; Protocol PRN Reason: Hypoglycemia Protocol Stop: 10/08/23 07:58 Glucose (Glucose 10 Tab/Tube) 4 - 8 tab PO UD PRN; Protocol PRN Reason: Hypoglycemia Treatment Stop: 10/08/23 07:58 Glucose (Glucose 40% Gel 15 Gm Tube) 15 - 30 gm PO UD PRN; Protocol PRN Reason: Hypoglycemia Protocol Stop: 10/08/23 07:58 Guaifenesin (Guaifenesin 600 Mg Tabcr) 600 mg PO Q12 [facility] Stop: 10/09/23 20:59 Last Admin: 09/11/23 08:52 Dose: 600 mg Heparin Sodium (Porcine) (Heparin Sod 5,000 Unit/0.5 Ml Vial) 5,000 units SQ Q12 [facility] Stop: 10/09/23 20:59 Last Admin: 09/11/23 08:54 Dose: 5,000 units Cefepime HCl 2,000 mg/ Syringe 20 mls @ 5 mls/min IV Q8H [facility]; Protocol Stop: 09/15/23 14:59 Last Admin: 09/11/23 14:43 Dose: 5 mls/min Azithromycin 250 mg/ Dextrose 252.5 mls @ 125 mls/hr IV Q24H [facility] Stop: 09/16/23 08:59 Last Infusion: 09/11/23 13:05 Dose: Infused Insulin Aspart (Insulin Aspart Per Unit Charge) 0 units SC ACHS [facility] Stop: 10/08/23 11:29 Last Admin: 09/11/23 13:01 Dose: Not Given Insulin Glargine (Lantus Per Unit Charge) 7 units SQ BID [facility] Stop: 10/08/23 08:59 Last Admin: 09/11/23 08:51 Dose: 7 units Ipratropium [place] (Ipratropium [place] Neb Soln 0.02% 0.5mg/2.5ml Vial) 0.5 mg INH Q6R [facility] Stop: 10/08/23 12:59 Last Admin: 09/11/23 13:04 Dose: 0.5 mg Levalbuterol HCl (Levalbuterol 1.25 Mg/3 Ml Neb) 1.25 mg NEB Q6R [facility] Stop: 10/08/23 12:59 Last Admin: 09/11/23 13:04 Dose: 1.25 mg Losartan Potassium (Losartan Potassium 25 Mg Tab) 25 mg PO QAM [facility] Stop: 10/08/23 09:29 Last Admin: 09/11/23 08:53 Dose: 25 mg Magnesium Hydroxide (Magnesium Hydroxide Susp 30 Ml Udc) 30 ml PO Q12H PRN PRN Reason: Constipation Stop: 10/08/23 07:58 Miscellaneous (Carbohydrates For Hypoglycemia ) 15 - 30 gm PO UD PRN PRN Reason: Hypoglycemia Protocol Stop: 10/08/23 07:58 Montelukast Sodium (Montelukast Sodium 10 Mg Tablet) 10 mg PO HS [facility] Stop: 10/08/23 20:59 Last Admin: 09/10/23 21:52 Dose: 10 mg Ondansetron HCl (Ondansetron Inj 2 Mg/Ml 2 Ml Vial) 4 mg IV Q6H PRN PRN Reason: Nausea Stop: 10/08/23 07:58 Pantoprazole Sodium (Pantoprazole 40 Mg Tab) 40 mg PO QAM [facility]; Protocol Stop: 10/09/23 08:59 Last Admin: 09/11/23 08:52 Dose: 40 mg Prednisone (Prednisone 20 Mg Tab) 40 mg PO DAILY [facility] Stop: 10/10/23 08:59 Last Admin: 09/11/23 08:52 Dose: 40 mg Sodium Chloride (Sodium Chlor 7% 4 Ml Neb) 4 ml NEB BIDR [facility] Stop: 10/08/23 08:09 Last Admin: 09/11/23 06:53 Dose: 4 ml Sodium Chloride (Sodium Chloride 0.65% Na Soln 45 Ml ([place])) 2 sprays NA BID [facility] Stop: 10/09/23 20:59 Last Admin: 09/11/23 08:53 Dose: 2 sprays Spironolactone (Spironolactone 25 Mg Tab) 25 mg PO TID [facility] Stop: 10/08/23 14:59 Last Admin: 09/11/23 14:44 Dose: 25 mg Tamsulosin HCl (Tamsulosin Hcl 0.4 Mg Cap) 0.4 mg PO DAILY [facility] Stop: 10/09/23 08:59 Last Admin: 09/11/23 08:53 Dose: 0.4 mg Torsemide (Torsemide 20 Mg Tab) 80 mg PO [id number] [facility] Stop: 10/08/23 09:29 Last Admin: 09/11/23 08:56 Dose: 80 mg (1) Optis-xj-hujrydh respiratory failure Respiratory failure complication: hypoxia Qualified Code(s): J96.21 - Acute and chronic respiratory failure with hypoxia (2) Pneumonia Laterality: bilateral Lung location: lower lobe of lung Pneumonia type: due to unspecified organism Qualified Code(s): J18.9 - Pneumonia, unspecified organism
[2023-09-12 07:20] LABS: Basophils # (auto) 0.01 K/uL (0.00-0.20); Basophils % (auto) 0.1 %; Eosinophils # (auto) 0.14 K/uL (0.00-0.50); Eosinophils % (auto) 1.7 %; Hematocrit (blood only) 45.3 % (42.0-52.0); Hemoglobin 14.8 g/dl (14.0-18.0); Immature Granulocytes # (auto) 0.04 K/uL (0.01-0.20); Immature Granulocytes % (auto) 0.5 %; Lymphocytes # (auto) 1.18 K/uL (1.20-3.40); Lymphocytes % (auto) 14.6 %; Mean Corpuscular Hemoglobin 30.9 pg (25.0-34.0); Mean Corpuscular Hgb Conc 32.7 g/dL (32.0-36.0); Mean Corpuscular Volume 94.6 fL (80.0-100.0); Mean Platelet Volume 8.5 fL (9.4-12.4); Monocytes # (auto) 0.64 K/uL (0.11-0.59); Monocytes % (auto) 7.9 %; Neutrophils # (auto) 6.05 K/uL (1.40-6.50); Neutrophils % (auto) 75.2 %; Platelet Count 297 K/uL (130-400); RDW Coefficient of Variation 14.2 % (11.5-14.5); RDW Standard Deviation 49.8 fL (36.4-46.3); Red Blood Count 4.79 M/uL (4.70-6.10); White Blood Count 8.06 K/ul (4.8-10.8)
[2023-09-12] MEDS: IPRATROPIUM BROMIDE NEB SOLN 0.02% 0.5MG/2.5ML VIAL INH SCH (07:22)
[2023-09-12] MEDS: LEVALBUTEROL 1.25 MG/3 ML NEB NEB SCH (07:22)
[2023-09-12 07:44] LABS: Anion Gap 5 (3-11); BUN Creatinine Ratio 27.6 (10-20); Blood Urea Nitrogen 29 mg/dl (6-23); Carbon Dioxide 35 mmol/L (21-32); Chloride 95 mmol/L (98-107); Creatinine Clr Calc Pharmacy 96.8 ml/min; Est GFR (African American) 93.5 ml/min; Est GFR (Non-African American) 80.7 ml/min; Glucose 94 mg/dl (70-99(Fasting)); Magnesium 2.3 mg/dl (1.7-2.4); Phosphorus 3.4 mg/dl (2.5-4.9); Sodium 135 mmol/L (136-145)
[2023-09-12] MEDS: POTASSIUM CHLORIDE CRTAB 20 MEQ TABCR PO STA (09:50)
--- NOTE | 2023-09-12 14:23 | Hospitalist Progress Note ---
Date of Service September 12, 2023 Assessment & Plan (1) Xqyyc-gi-tydgucz respiratory failure: (2) Pneumonia: (3) Sarcoidosis: (4) ANGELES (obstructive sleep apnea): (5) CHF (congestive heart failure), NYHA class III: (6) Hypokalemia: (7) HTN (hypertension): (8) DMII (diabetes mellitus, type 2): (9) Depression: (10) BPH (benign prostatic hyperplasia): Plan Mr. Pugh is a 52-year-old male who presents to the ED today with shortness of breath and productive cough. He was recently admitted to [facility] from 08/29 to 09/03 with a COPD exacerbation in the setting of a URI secondary to parainfluenza. Additional complex past medical history includes COPD, sarcoidosis of the lung, chronic respiratory failure with 3 to 4 L home supplemental oxygen at baseline, ANGELES(BiPAP at night), right-sided heart failure, pulmonary hypertension, diabetes type 2, HTN, depression, history of C. difficile, history of blastomycosis requiring tracheostomy status post decannulation, and BPH. Leukocytosis 23.02, hypokalemic 3.0, lactate normal, BNP negative, procalcitonin is pending. Chest CTA negative for PE but suggestive of pulmonary hypertension; which is known. Additionally patchy multifocal pneumonia noted in the left lung with chronic pleural effusions and scarring from granulomatosis which is likely related to sarcoidosis. Patient will be admitted to PCU for further evaluation and management of his multifocal pneumonia. Given the complexity of his pulmonary issues will re-involve pulmonology, continue antibiotic coverage and adjust based on sputum, blood, and MRSA screen results. Due to thick sputum continue hypertonic saline nebulizers, will continue IV steroids and await pulmonary recommendations, given patient has pulmonary hypertension continue to keep O2 sats 90 to 92%. Add formotorol + Budesinide, supportive respiratory. Acute on chronic respiratory failure: Multifocal pneumonia throughout the left lung: Sarcoidosis: Acute; admit to PCU given complexity and possibility of decompensation requiring increased O2 needs Wears 4 to 5 L of O2 at home Admitting Chest CTA neg for PE;suggestive of known pHTN. Patchy multifocal PNA noted L lung with chronic pleural effusions/scarring from granulomatosis; likely related to sarcoidosis. WBC 23.02, lactate normal Blood cultures are pending and sputum culture grew heavy normal joe Mucomyst ordered as adjuvant therapy Flutter valve plus ISB Started on cefepime plus Vanco; DC'd vanco as mrsa screen neg. c/w azithro Urine Legionella antigen neg Solu-Medrol - continue 40 mg IV Q8 Pulm onboard, appreciate recs. Symptomatically much improved with decreasing cough and decreasing shortness of breath Back to his baseline requirements of oxygen Will change antibiotic to oral cefdinir and doxycycline to finish the course for a total of 10 days Will give prednisone on a tapering dose starting with 40 mg He will be discharged home this afternoon ANGELES: Chronic Uses BiPAP nightly; continue Continue BiPAP nightly and as tolerated during daytime as well Clinically much better Using BiPAP at times and feeling a lot better Congestive heart failure: Pulmonary hypertension: Chronic Right-sided heart failure; in setting of PHTN Takes torsemide and Cardiac MRI negative 09/21 to rule out heart involvement related to sarcoidosis Follows with Dr. 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 K is normal at 3.6 HTN: Chronic Takes losartan, Aldactone and torsemide; DM2: Chronic Zto-picspgm-iwfteewdz Takes metformin; hold while inpatient Placed on SSI ACHS with FSBS Depression: Chronic Takes citalopram; continue Disposition: PCP: Dr. Downing CODE STATUS: Full code VTE prophylaxis: Heparin subcu. Closely monitor for recurrence of hemoptysis. He will be discharged home this afternoon Admission and Anticipated Discharge Date Admission Date: September 08, 2023 Subjective 09/10/2023 The patient was seen and examined in telemetry unit He is readmitted with acute respiratory failure secondary to pneumonia Has been feeling a little better Saturating normally on 4 L which is his baseline 09/11/2023 The patient was seen and examined in telemetry unit He has been feeling much better today Back to his baseline with oxygen requirements 09/12/2023 The patient was seen and examined in telemetry unit He has been feeling much better and has been saturating normally on 3 to 4 L via nasal cannula He has been ambulating in the hallway without any difficulties He wants to go home today Review of Systems Review of Systems: All systems reviewed and are unremarkable except as noted below Physical Exam Physical Exam: Lying in bed with minimal respiratory distress on BiPAP Constitutional: well developed, well nourished, + ill appearing and + obese Eyes: PERRL, conjunctivae normal, anicteric sclerae ENMT: external ear and nose normal, oropharynx normal Neck: trachea midline, no thyromegaly Respiratory: + respiratory distress Auscultation: + diminished lung sounds and + crackles (Bibasilar crackles more on the right than the left) Cardiovascular: Rate/Rhythm: regular rate and regular rhythm; not tachycardic Heart Sounds: normal S1 and normal S2; no murmur Extremities: + edema Gastrointestinal (Abdomen): Inspection/Auscultation: normal bowel sounds; abdomen not distended Percussion/Palpation: abdomen soft; abdomen nontender Neurologic: normal touch/pain/proprioception and moves all extremities; no focal motor deficits Psychiatric: A+Ox3, euthymic affect Lymphatic: no cervical or axillary lymphadenopathy Results & Data Results & Data Vital Signs (Past 12 Hours) Vital Signs Temp Pulse Resp BP Pulse Ox Pulse Ox O2 Del Method 09/12/23 12:29 78 18 92 Nasal Cannula 09/12/23 12:00 94 09/12/23 11:29 36.4 C L 88 22 107/72 94 Nasal Cannula 09/12/23 07:44 36.6 C 78 18 104/68 09/12/23 07:23 78 18 99 CPAP 09/12/23 03:35 36.4 C L 65 17 105/68 96 BiPAP O2 Del Method O2 Flow Rate O2 Flow Rate 09/12/23 12:29 3 09/12/23 12:00 Nasal Cannula 2 09/12/23 11:29 2.0 09/12/23 07:44 09/12/23 07:23 4 09/12/23 03:35 Laboratory Results Short CBC 09/12/23 Range/Units 06:58 WBC 8.06 (4.8-10.8) K/ul Hgb 14.8 (14.0-18.0) g/dl Hct 45.3 (42.0-52.0) % Plt Count 297 (130-400) K/uL BMP 09/12/23 09/12/23 06:58 07:52 Sodium 135 L Potassium TNP 3.4 L Chloride 95 L Carbon Dioxide 35 H BUN 29 H Creatinine 1.05 Glucose 94 Calcium 9.0 Medications Administered Current Inpatient Medications Acetaminophen (Acetaminophen 325 Mg Tab) 650 mg PO Q4H PRN PRN Reason: Pain or Fever Stop: 10/08/23 07:58 Al Hydrox/Mg Hydrox/Simethicone (Aluminum/Magnesium Susp 30 Ml Udc) 15 ml PO Q4H PRN PRN Reason: Dyspepsia Stop: 10/08/23 07:58 Aspirin (Aspirin 81 Mg Ectab) 81 mg PO QAM [facility] Stop: 10/09/23 08:59 Last Admin: 09/12/23 08:25 Dose: 81 mg Citalopram Hydrobromide (Citalopram 20 Mg Tab) [facility] [place] Stop: 10/09/23 08:59 Last Admin: 09/12/23 08:25 Dose: 20 mg Dextrose (Dextrose 50% 50 Ml Syringe) 25 - 50 ml IV UD PRN; Protocol PRN Reason: Hypoglycemia Protocol Stop: 10/08/23 07:58 Digoxin (Digoxin 0.125 Mg Tab) 0.125 mg [facility] [place] Stop: 10/09/23 08:59 Last Admin: 09/12/23 08:25 Dose: 0.125 mg Fluticasone Propionate (Fluticasone Propionate Na Spr 16 Gm Btl) 2 sprays NA DAILY [facility] Stop: 10/09/23 14:44 Last Admin: 09/12/23 08:27 Dose: 2 sprays Fluticasone/Vilanterol (Fluticasone/Vilanterol 100/25mcg 14 Puffs/Inhaler) 1 puffs INH DAILY [facility]; Protocol Stop: 10/08/23 10:59 Last Admin: 09/12/23 08:26 Dose: 1 puffs Folic Acid (Folic Acid 1 Mg Tab) 1 mg PO QAM [facility] Stop: 10/09/23 08:59 Last Admin: 09/12/23 08:27 Dose: 1 mg Glucagon (Glucagon For Inj 1 Mg Vial) 1 mg SQ UD PRN; Protocol PRN Reason: Hypoglycemia Protocol Stop: 10/08/23 07:58 Glucose (Glucose 10 Tab/Tube) 4 - 8 tab PO UD PRN; Protocol PRN Reason: Hypoglycemia Treatment Stop: 10/08/23 07:58 Glucose (Glucose 40% Gel 15 Gm Tube) 15 - 30 gm PO UD PRN; Protocol PRN Reason: Hypoglycemia Protocol Stop: 10/08/23 07:58 Guaifenesin (Guaifenesin 600 Mg Tabcr) 600 mg PO Q12 YAA Stop: 10/09/23 20:59 Last Admin: 09/12/23 08:24 Dose: 600 mg Heparin Sodium (Porcine) (Heparin Sod 5,000 Unit/0.5 Ml Vial) 5,000 units SQ Q12 YAA Stop: 10/09/23 20:59 Last Admin: 09/12/23 08:28 Dose: 5,000 units Cefepime HCl 2,000 mg/ Syringe 20 mls @ 5 mls/min IV Q8H [facility]; Protocol Stop: 09/15/23 14:59 Last Admin: 09/12/23 06:49 Dose: 5 mls/min Azithromycin 250 mg/ Dextrose 252.5 mls @ 125 mls/hr IV Q24H YAA Stop: 09/16/23 08:59 Last Infusion: 09/12/23 11:03 Dose: Infused Insulin Aspart (Insulin Aspart Per Unit Charge) 0 units SC ACHS YAA Stop: 10/08/23 11:29 Last Admin: 09/12/23 11:29 Dose: Not Given Insulin Glargine (Lantus Per Unit Charge) 7 units SQ BID YAA Stop: 10/08/23 08:59 Last Admin: 09/12/23 08:28 Dose: 7 units Ipratropium Caro (Ipratropium Caro Neb Soln 0.02% 0.5mg/2.5ml Vial) 0.5 mg INH TIDR YAA Stop: 10/12/23 06:59 Last Admin: 09/12/23 12:29 Dose: 0.5 mg Levalbuterol HCl (Levalbuterol 1.25 Mg/3 Ml Neb) 1.25 mg NEB TIDR YAA Stop: 10/12/23 06:59 Last Admin: 09/12/23 12:29 Dose: 1.25 mg Losartan Potassium (Losartan Potassium 25 Mg Tab) 25 mg PO QAM YAA Stop: 10/08/23 09:29 Last Admin: 09/12/23 08:25 Dose: 25 mg Magnesium Hydroxide (Magnesium Hydroxide Susp 30 Ml Udc) 30 ml PO Q12H PRN PRN Reason: Constipation Stop: 10/08/23 07:58 Miscellaneous (Carbohydrates For Hypoglycemia ) 15 - 30 gm PO UD PRN PRN Reason: Hypoglycemia Protocol Stop: 10/08/23 07:58 Montelukast Sodium (Montelukast Sodium 10 Mg Tablet) 10 mg PO HS [facility] Stop: 10/08/23 20:59 Last Admin: 09/11/23 21:38 Dose: 10 mg Ondansetron HCl (Ondansetron Inj 2 Mg/Ml 2 Ml Vial) 4 mg IV Q6H PRN PRN Reason: Nausea Stop: 10/08/23 07:58 Pantoprazole Sodium (Pantoprazole 40 Mg Tab) [facility] [place]; Protocol Stop: 10/09/23 08:59 Last Admin: 09/12/23 08:26 Dose: 40 mg Prednisone (Prednisone 20 Mg Tab) 40 mg PO DAILY [facility] Stop: 10/10/23 08:59 Last Admin: 09/12/23 08:25 Dose: 40 mg Sodium Chloride (Sodium Chlor 7% 4 Ml Neb) 4 ml NEB BIDR [facility] Stop: 10/08/23 08:09 Last Admin: 09/12/23 07:23 Dose: 4 ml Sodium Chloride (Sodium Chloride 0.65% Na Soln 45 Ml ([place])) 2 sprays NA BID [facility] Stop: 10/09/23 20:59 Last Admin: 09/12/23 08:26 Dose: 2 sprays Spironolactone (Spironolactone 25 Mg Tab) 25 mg PO TID [facility] Stop: 10/08/23 14:59 Last Admin: 09/12/23 08:24 Dose: 25 mg Tamsulosin HCl (Tamsulosin Hcl 0.4 Mg Cap) 0.4 mg PO DAILY [facility] Stop: 10/09/23 08:59 Last Admin: 09/12/23 08:25 Dose: 0.4 mg Torsemide (Torsemide 20 Mg Tab) 80 mg PO [id number] [facility] Stop: 10/08/23 09:29 Last Admin: 09/12/23 08:29 Dose: 80 mg (1) Suzuk-lo-sqgigfo respiratory failure Respiratory failure complication: hypoxia Qualified Code(s): J96.21 - Acute and chronic respiratory failure with hypoxia (2) Pneumonia Laterality: bilateral Lung location: lower lobe of lung Pneumonia type: due to unspecified organism Qualified Code(s): J18.9 - Pneumonia, unspecified organism
--- NOTE | 2023-09-13 17:09 | Discharge Summary ---
Date of Service September 13, 2023 Admission HPI Per Admitting Provider Mr. Pugh is a 52-year-old male who presents to the ED today with shortness of breath and productive cough. He was recently admitted to [facility] from 08/29 to 09/03 with a COPD exacerbation in the setting of a URI secondary to parainfluenza. Additional complex past medical history includes COPD, sarcoidosis of the lung, chronic respiratory failure with 3 to 4 L home supplemental oxygen at baseline, ANGELES(BiPAP at night), right-sided heart failure, pulmonary hypertension, diabetes type 2, HTN, depression, history of C. difficile, history of blastomycosis requiring tracheostomy status post decannulation, and BPH. Leukocytosis 23.02, hypokalemic 3.0, lactate normal, BNP negative, procalcitonin is pending. Chest CTA negative for PE but suggestive of pulmonary hypertension; which is known. Additionally patchy multifocal pneumonia noted in the left lung with chronic pleural effusions and scarring from granulomatosis which is likely related to sarcoidosis. Patient will be admitted to PCU for further evaluation and management of his multifocal pneumonia. Given the complexity of his pulmonary issues will re- involve pulmonology, continue antibiotic coverage and adjust based on sputum, blood, and MRSA screen results. Due to thick sputum continue hypertonic saline nebulizers, will continue IV steroids and await pulmonary recommendations, given patient has pulmonary hypertension continue to keep O2 sats 90 to 92%. Add formotorol + Budesinide, supportive respiratory. Admission Exam Per Admitting Provider Physical Exam: Neuro: AAOx4, PERRLA, no aphagia, memory changes, CNII-XII grossly intact HEENT: head normocephalic, moist mucus membranes CV: S1/S2, (-) M/G/R, (-) edema, cap refill < 3 seconds Resp: Lungs coarse throughout. On 6LNC. GI: Abdomen S/NT/ND, Ax4 bowel sounds, (-) CVA tenderness Musculoskeletal: 5/5 B/L UE strength, 5/5 B/L LE strength. No gait disturbance Skin: (-) rashes , (-) erythema. Psych: euthymic mood Principal Diagnosis Acute on chronic respiratory failure, multifocal pneumonia, sarcoidosis of the lung, sleep apnea Discharge Exam Lying in bed with minimal respiratory distress on BiPAP Constitutional well developed, well nourished, + ill appearing and + obese Eyes PERRL, conjunctivae normal, anicteric sclerae ENMT external ear and nose normal, oropharynx normal Neck trachea midline, no thyromegaly Respiratory + respiratory distress Auscultation: + diminished lung sounds and + crackles (Bibasilar crackles more on the right than the left) Cardiovascular Rate/Rhythm: regular rate and regular rhythm; not tachycardic Heart Sounds: normal S1 and normal S2; no murmur Extremities: + edema Gastrointestinal (Abdomen) Inspection/Auscultation: normal bowel sounds; abdomen not distended Percussion/Palpation: abdomen soft; abdomen nontender Neurologic normal touch/pain/proprioception and moves all extremities; no focal motor deficits Psychiatric A+Ox3, euthymic affect Lymphatic no cervical or axillary lymphadenopathy Discharge Data Allergies Allergy/AdvReac Type Severity Reaction Status Date / Time doxycycline AdvReac Severe Vomiting Verified 09/08/23 08:00 Consultations 09/08/23 07:54 ED Decision to Admit Stat 09/08/23 07:58 Consult Pulmonology Routine Ordered Studies 09/08/23 05:08 CT angio chest PE protocol Stat Hospital Course (1) Lnkgc-vj-vorhldg respiratory failure: (2) Pneumonia: (3) Sarcoidosis: (4) ANGELES (obstructive sleep apnea): (5) CHF (congestive heart failure), NYHA class III: (6) Hypokalemia: (7) HTN (hypertension): (8) DMII (diabetes mellitus, type 2): (9) Depression: (10) BPH (benign prostatic hyperplasia): Plan Mr. Pugh is a 52-year-old male who presents to the ED today with shortness of breath and productive cough. He was recently admitted to [facility] from 08/29 to 09/03 with a COPD exacerbation in the setting of a URI secondary to parainfluenza. Additional complex past medical history includes COPD, sarcoidosis of the lung, chronic respiratory failure with 3 to 4 L home supplemental oxygen at baseline, ANGELES(BiPAP at night), right-sided heart failure, pulmonary hypertension, diabetes type 2, HTN, depression, history of C. difficile, history of blastomycosis requiring tracheostomy status post decannulation, and BPH. Leukocytosis 23.02, hypokalemic 3.0, lactate normal, BNP negative, procalcitonin is pending. Chest CTA negative for PE but suggestive of pulmonary hypertension; which is known. Additionally patchy multifocal pneumonia noted in the left lung with chronic pleural effusions and scarring from granulomatosis which is likely related to sarcoidosis. Patient will be admitted to PCU for further evaluation and management of his multifocal pneumonia. Given the complexity of his pulmonary issues will re-involve pulmonology, continue antibiotic coverage and adjust based on sputum, blood, and MRSA screen results. Due to thick sputum continue hypertonic saline nebulizers, will continue IV steroids and await pulmonary recommendations, given patient has pulmonary hypertension continue to keep O2 sats 90 to 92%. Add formotorol + Budesinide, supportive respiratory. Acute on chronic respiratory failure: Multifocal pneumonia throughout the left lung: Sarcoidosis: Acute; admit to PCU given complexity and possibility of decompensation requiring increased O2 needs Wears 4 to 5 L of O2 at home Admitting Chest CTA neg for PE;suggestive of known pHTN. Patchy multifocal PNA noted L lung with chronic pleural effusions/scarring from granulomatosis; likely related to sarcoidosis. WBC 23.02, lactate normal Blood cultures are pending and sputum culture grew heavy normal joe Mucomyst ordered as adjuvant therapy Flutter valve plus ISB Started on cefepime plus Vanco; DC'd vanco as mrsa screen neg. c/w azithro Urine Legionella antigen neg Solu-Medrol - continue 40 mg IV Q8 Pulm onboard, appreciate recs. Symptomatically much improved with decreasing cough and decreasing shortness of breath Back to his baseline requirements of oxygen Will change antibiotic to oral cefdinir and doxycycline to finish the course for a total of 10 days Will give prednisone on a tapering dose starting with 40 mg He will be discharged home this afternoon ANGELES: Chronic Uses BiPAP nightly; continue Continue BiPAP nightly and as tolerated during daytime as well Clinically much better Using BiPAP at times and feeling a lot better Congestive heart failure: Pulmonary hypertension: Chronic Right-sided heart failure; in setting of PHTN Takes torsemide and Cardiac MRI negative 09/21 to rule out heart involvement related to sarcoidosis Follows with Dr. 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 K is normal at 3.6 HTN: Chronic Takes losartan, Aldactone and torsemide; DM2: Chronic Dqk-uwukkxa-lizaovpbw Takes metformin; hold while inpatient Placed on SSI ACHS with FSBS Depression: Chronic Takes citalopram; continue Disposition: PCP: Dr. Downing CODE STATUS: Full code VTE prophylaxis: Heparin subcu. Closely monitor for recurrence of hemoptysis. He will be discharged home this afternoon Total Time Total Time Spent Total Time Spent (In Minutes): 45 minutes Discharge Plan Discharge Items Patient Disposition: Home - Self-Care Reason For Visit: AC ON CHR RESP FAILURE, PRODUCTIVE COUGH, PNA Discharge Diagnosis: Acute on chronic respiratory failure, multifocal pneumonia, sarcoidosis of the lung, sleep apnea Condition on Discharge: Fair Activity: Resume your previous activity Non-emergency contact: Primary Care Provider Call non-emergency contact if: you have any medication questions and your symptoms worsen Follow-up/Referrals: Andrzej Downing MD [Primary Care Provider] - (Your doctor's office will give you a call with an appointment within 7 days) Diet: Carb Consistent or DM2 and Heart Healthy Addtl Attending Provider Instructions: Please take precautions to avoid falls Finish the course of antibiotic Finish the tapering dose of steroid Take your medications as advised Please keep appointment with the healthcare providers You need to see your certified court interpreter sooner in [place] Pending Studies at Discharge: No Stand-Alone Forms: My [facility] [employer], Smoking Cessation Medications and DC Order Prescriptions: New cefdinir 300 mg capsule 300 mg PO BID Qty: 20 0RF azithromycin 250 mg tablet 250 mg PO DAILY Qty: 2 0RF prednisone 10 mg tablet 10 mg PO DIRECTED Qty: 20 0RF Rx Instructions: 4 daily for 2 days,3 po daily for 2 days,2 daily for 2 days and then 1 daily for 2 days. Continued torsemide 20 mg tablet 80 mg PO BID Rx Instructions: 4 tab po bid citalopram 20 mg tablet 20 mg PO QAM potassium chloride 20 mEq tablet,ER particles/crystals 20 meq PO BID tamsulosin 0.4 mg capsule 0.4 mg PO DAILY losartan 25 mg tablet 25 mg PO QAM omeprazole 20 mg capsule,delayed release(DR/EC) 20 mg PO QAM folic acid 1 mg tablet 1 mg PO QAM digoxin [Digitek] 125 mcg (0.125 mg) tablet 125 mcg PO QAM metformin 500 mg tablet extended release 24 hr 1,000 mg PO QAM Jardiance 25 mg tablet 25 mg PO QAM spironolactone 25 mg tablet 25 mg PO TID Rx Instructions: Take 50mg by mouth in the morning, 25mg by mouth in the evening ferrous sulfate 325 mg (65 mg iron) Tablet 325 mg PO QAM Rx Instructions: take with breakfast aspirin [Claire Chewable Aspirin] 81 mg Tablet,Chewable 81 mg PO QAM fluticasone furoate-vilanterol [Breo Ellipta] 200-25 mcg/dose blister with device 1 ea INHALATION QAM montelukast 10 mg tablet 10 mg PO HS multivitamin Tablet 1 tab PO DAILY albuterol sulfate 2.5 mg /3 mL (0.083 %) Solution For Nebulization 2.5 mg INHALATION DAILY PRN (Reason: Dyspnea) ascorbic acid (vitamin C) [Vitamin C] 250 mg Tablet 500 mg PO QAM albuterol sulfate 90 mcg/actuation Hfa Aerosol Inhaler 2 puff INHALATION Q4H PRN (Reason: Dyspnea) metolazone 2.5 mg Tablet 2.5 mg PO UD Rx Instructions: take 1 tablet 30 minutes before AM torsemide only when directed. Per patient: "This is just a standby emergency thing as directed by the doctor, it's been months since I took it." cromolyn 4 % Drops 1 drp OPB QID PRN (Reason: allergy or itching) fluticasone propionate 50 mcg/actuation [place],Suspension 2 spray INTRANASAL QAM Rx Instructions: administer into each nostril levocetirizine 5 mg Tablet 5 mg PO DAILY PRN (Reason: Allergy Symptoms) acetaminophen 325 mg Tablet 650 mg PO Q4H PRN (Reason: pain) Qty: 30 0RF loratadine 10 mg Tablet 10 mg PO DAILY PRN (Reason: allergies) Spiriva Respimat 2.5 mcg/actuation Mist 2 puff INHALATION DAILY sodium chloride 7 % Solution For Nebulization 4 ml NEB BIDR Qty: 240 0RF Ozempic 1 mg/dose (4 mg/3 mL) pen injector 4 mg SUBCUT WK Rx Instructions: Wednesdays guaifenesin [Mucinex] 600 mg tablet extended release 12hr 600 mg PO Q12 PRN (Reason: mucus) Discontinued prednisone 20 mg tablet 0 mg PO DAILY Rx Instructions: Start Date 09/05/23 - End Date 09/10/23: 40mg po daily for 2 days and then 20mg po daily for 4 days .Stop after that. As of 09/08/23 pt has 2 doses left 2 tablets left Discharge Orders: Discharge Order (Routine); Ordered 09/12/23 Ordered By: Anai Colon Admission Data Admit Date/Time: 09/08/23 07:59 Attending Provider: Anai Colon Admit Provider: Lee Ann Locke Primary Care Provider: Andrzej Downing Other Providers: Lee Ann Locke; Mc Hutchinson Other Interventions: Discharge Summary Assessment (RN) Last Done: 09/12/23 14:46
== END 2023-09-12 15:56 | disposition home or self-care (01) | DRG 193 ==
LOC: ED 03:35 → SUATTDRO 07:59 → EDINP 07:59 → 2S 10:36

== ENCOUNTER 2024-05-16 11:50 | Inpatient (IN) ==
[2024-05-16 12:12] LABS: Base Excess VBG 12.4 mEq/L; HCO3 VBG 38 mmol/L; Oxygen Saturation VBG 96.6 %; PCO2 VBG 50 mmHg (38-50); PO2 VBG 72 mmHg; pH VBG 7.49 (7.36-7.41)
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
[2024-05-16] MEDS: ALBUT/IPRATROP 3MG/0.5MG NEB 3 ML VIAL ONE (12:20)
[2024-05-16] MEDS: ALBUT/IPRATROP 3MG/0.5MG NEB 3 ML VIAL NEB ONE (12:20)
--- NOTE | 2024-05-16 12:29 | XRay Report ---
XR chest 1V portable HISTORY: 53 years-old Male Sepsis COMPARISON: Chest CT 01/29/2024 TECHNIQUE: AP view of the chest FINDINGS: Cardiac silhouette is enlarged. Calcified mediastinal lymph nodes redemonstrated along with pulmonary fibrosis. Unchanged blunting of the costophrenic angles with bibasilar opacities. Pulmonary vascular congestion with interstitial coarsening which has progressed from the prior study. IMPRESSION: 1. Prior granulomatous disease with chronic interstitial lung disease redemonstrated. 2. Cardiomegaly with progressive interstitial opacities which may represent superimposed pulmonary ed arya versus interstitial pneumonia. ACT 112: Negative or not required by law. The above report was generated using voice recognition software. It may contain grammatical, syntax o r spelling errors. Electronically signed by: Bryce Romero M.D. 05/16/2024 12:27 PM
[2024-05-16 12:35] LABS: Basophils # (auto) 0.03 K/uL (0.00-0.20); Basophils % (auto) 0.2 %; Eosinophils # (auto) 0.17 K/uL (0.00-0.50); Hematocrit (blood only) 46.7 % (42.0-52.0); Hemoglobin 15.7 g/dl (14.0-18.0); Immature Granulocytes # (auto) 0.07 K/uL (0.01-0.20); Immature Granulocytes % (auto) 0.4 %; Lymphocytes # (auto) 0.83 K/uL (1.20-3.40); Lymphocytes % (auto) 4.7 %; Mean Corpuscular Hemoglobin 28.4 pg (25.0-34.0); Mean Corpuscular Hgb Conc 33.6 g/dL (32.0-36.0); Mean Corpuscular Volume 84.6 fL (80.0-100.0); Mean Platelet Volume 10.3 fL (9.4-12.4); Monocytes # (auto) 1.44 K/uL (0.11-0.59); Monocytes % (auto) 8.1 %; Neutrophils # (auto) 15.25 K/uL (1.40-6.50); Neutrophils % (auto) 85.6 %; Platelet Count 298 K/uL (130-400); RDW Coefficient of Variation 17.3 % (11.5-14.5); RDW Standard Deviation 50.7 fL (36.4-46.3); Red Blood Count 5.52 M/uL (4.70-6.10); White Blood Count 17.79 K/ul (4.8-10.8)
[2024-05-16] MEDS: dexAMETHasone**PF** 10 MG/ML VIAL IV ONE (12:51)
[2024-05-16 12:56] LABS: Appearance Urine Clear (Clear); Bacteria Urine Automated None Seen (None Seen); Bilirubin Urine Negative (Negative); Blood Urine 2+ (Negative); Cast Urine Automated 0-2 /lpf (0-2); Color Urine Yellow; Epithelial Cell Urine Auto 0-2 /hpf (0-2); Glucose Urine UA 3+ (Negative); Ketones Urine Negative (Negative); Leukocyte Esterase Urine Negative (Negative); Nitrite Urine Negative (Negative); Protein Urine Negative (Negative); Specific Gravity Urine 1.017 (1.000-1.030); Urobilinogen Urine Negative (Negative); WBC Urine Automated 0-5 /hpf (0-5); pH Urine 5.5 (4.5-7.5)
[2024-05-16] MEDS: cefTRIAXone SODIUM 2,000 MG/50 ML BAG IV STA (13:22)
[2024-05-16 13:37] LABS: Adenovirus PCR Not Detected (NotDetected); Bordetella parapertussis PCR Not Detected (NotDetected); Bordetella pertussis PCR Not Detected (NotDetected); Chlamydia pneumoniae PCR Not Detected (NotDetected); Coronavirus 229E PCR Not Detected (NotDetected); Coronavirus CoV-2 (COVID19)PCR Not Detected (NotDetected); Coronavirus HKU1 PCR Not Detected (NotDetected); Coronavirus NL63 PCR Not Detected (NotDetected); Coronavirus OC43PCR Not Detected (NotDetected); Human Metapneumovirus PCR Not Detected (NotDetected); Influenza A PCR Not Detected (NotDetected); Influenza B PCR Not Detected (NotDetected); Mycoplasma pneumoniae PCR Not Detected (NotDetected); Parainfluenza Virus 1 PCR Not Detected (NotDetected); Parainfluenza Virus 2 PCR Not Detected (NotDetected); Parainfluenza Virus 3 PCR Not Detected (NotDetected); Parainfluenza Virus 4 PCR Not Detected (NotDetected); Respiratory Syncytial VirusPCR Not Detected (NotDetected); Rhinovirus/Enterovirus PCR Not Detected (NotDetected)
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
[2024-05-16 13:58] LABS: Albumin Level 3.6 gm/dl (3.4-5.0); BUN Creatinine Ratio 17.1 (10-20); Bilirubin Direct 0.1 mg/dl (0-0.2); Bilirubin,Total 1.2 mg/dl (0.2-1.0); Calcium 9.7 mg/dl (8.6-10.3); Creatinine Clr Calc Pharmacy 96.1 ml/min; Magnesium 2.2 mg/dl (1.7-2.4); Potassium 3.3 mmol/L (3.5-5.1); Total Protein 7.3 gm/dl (6.0-8.3)
[2024-05-16 14:06] LABS: Partial Thromboplastin Ratio 1.3; Partial Thromboplastin Time 35 Seconds (21-31); Prothrombin Time 11.1 Seconds (9.0-12.0)
[2024-05-16] MEDS: POTASSIUM CHLORIDE CRTAB 20 MEQ TABCR PO ONE (14:17)
[2024-05-16] MEDS ORDERED: ONDANSETRON INJ 2 MG/ML 2 ML VIAL IV PRN (15:36)
[2024-05-16] MEDS ORDERED: ACETAMINOPHEN 325 MG TAB PO PRN (15:36)
[2024-05-16] MEDS ORDERED: POLYETHYLENE (MIRALAX) 17 GM PACK PO PRN (15:36)
[2024-05-16] MEDS ORDERED: methylPREDNISolone 125 MG/2 ML VIAL IV SCH (16:00)
[2024-05-16] MEDS: ALBUT/IPRATROP 3MG/0.5MG NEB 3 ML VIAL NEB SCH (16:01)
--- NOTE | 2024-05-16 16:27 | Electrocardiogram Report ---
Test Reason : Blood Pressure : */* mmHG Vent. Rate : 100 BPM Atrial Rate : 100 BPM P-R Int : 138 ms QRS Dur : 102 ms QT Int : 344 ms P-R-T Axes : 64 127 28 degrees QTcB Int : 443 ms Sinus rhythm with Premature atrial complexes Right axis deviation Right ventricular hypertrophy with repolarization abnormality ST depression in Anterior leads Abnormal ECG When compared with ECG of 29-Jan-2024 12:28, Premature atrial complexes are now Present ST depression in Anterior leads more pronounced Reconfirmed by Be Chaparro ([id number]) on 05/17/2024 8:59:06 AM Referred By: REFERRED SELF Confirmed By: Be Chaparro
[2024-05-16] MEDS ORDERED: CETIRIZINE HCL 10 MG TABLET PO PRN (16:47)
--- NOTE | 2024-05-16 16:55 | CT Scan Report ---
EXAM: CT Chest Without Intravenous Contrast INDICATION: Acute on chronic respiratory failure. Cough and shortness of breath. TECHNIQUE: Axial computed tomography images of the chest without intravenous contrast. Sagittal and coronal reformatted images were created and reviewed. This CT exam was performed using one or more of the following dose reduction techniques: automated exposure control, adjustment of the mA and/or kV according to patient size, and/or use of iterative reconstruction technique. COMPARISON: 01/29/2024 FINDINGS: Limitations: None. Lungs and pleural spaces: Stable emphysema. Underlying scarring noted with superimposed left suprahilar infiltrate measuring approximately 2.6 x 2.0 cm. There is consolidation in the anterior left upper lobe and lingula. There is new consolidation in the anterior right lower lobe measuring 2.1 x 0.8 x 1.1 cm. Stable loculated complex pleural effusions in each base the right measuring 9 cm thickness in the left 5.8 cm thickness. Stable pleural thickening and mild anterolateral loculation 1.1 cm on the right and 7 mm on the left. No pneumothorax. Heart: No abnormality noted. Thyroid: No abnormality noted. Bones/joints: Degenerative changes noted throughout the spine. No acute osseous abnormality seen. Stable old T11 compression deformity. Soft tissues: No significant abnormality noted. Vasculature: No abnormality noted. No thoracic aortic aneurysm. Lymph nodes: Stable calcified granulomatous hilar and mediastinal nodes. IMPRESSION: 1. There are multifocal infiltrates in the left lung new since 01/29/2024 most concerning for pneumonia. 2. Stable emphysema, scarring and bilateral loculated pleural effusions. ACT 112: Negative or not required by law. Electronically signed by Lupe Katz 05-16-2024 4:54 PM
[2024-05-16] MEDS: methylPREDNISolone 40 MG in SYRINGE 0 ML IV SCH (17:17)
[2024-05-16] MEDS ORDERED: GLUCOSE 40% GEL 15 GM TUBE PO PRN (17:17)
[2024-05-16] MEDS ORDERED: GLUCOSE 10 TAB/TUBE PO PRN (17:17)
[2024-05-16] MEDS ORDERED: CARBOHYDRATES FOR HYPOGLYCEMIA PO PRN (17:17)
[2024-05-16] MEDS ORDERED: DEXTROSE 50% 50 ML SYRINGE IV PRN (17:17)
[2024-05-16] MEDS ORDERED: GLUCAGON FOR INJ 1 MG VIAL SQ PRN (17:17)
[2024-05-16] MEDS: SODIUM CHLORIDE 0.65% NA SOLN 45 ML (OCEAN) ONE (17:24)
[2024-05-16] MEDS: HEPARIN SOD 5,000 UNIT/0.5 ML VIAL SQ SCH (17:25)
[2024-05-16] MEDS: TORSEMIDE 20 MG TAB PO SCH (17:26)
[2024-05-16] MEDS: INSULIN ASPART PER UNIT CHARGE SC SCH (17:40)
[2024-05-16] MEDS: PIPERACILLIN/TAZOBACTAM 4.5 GM/100 ML BAG IV ONE (17:43)
[2024-05-16] MEDS: guaiFENesin 600 MG TABCR PO SCH (21:10)
[2024-05-16] MEDS: POTASSIUM CHLORIDE CRTAB 20 MEQ TABCR PO SCH (21:11)
[2024-05-16] MEDS: SPIRONOLACTONE 25 MG TAB PO SCH (21:11)
[2024-05-16] MEDS: MONTELUKAST SODIUM 10 MG TABLET PO SCH (21:12)
[2024-05-16] MEDS: PIPERACILLIN/TAZOBACTAM 4.5 GM/100 ML BAG IV SCH (22:31)
[2024-05-17 06:11] LABS: Base Excess VBG 13.5 mEq/L; HCO3 VBG 40 mmol/L; Oxygen Saturation VBG 86.9 %; PCO2 VBG 56 mmHg (38-50); PO2 VBG 56 mmHg; pH VBG 7.46 (7.36-7.41)
[2024-05-17 06:19] LABS: Hematocrit (blood only) 46.7 % (42.0-52.0); Mean Corpuscular Hemoglobin 27.9 pg (25.0-34.0); Mean Corpuscular Hgb Conc 32.1 g/dL (32.0-36.0); Mean Corpuscular Volume 86.8 fL (80.0-100.0); Mean Platelet Volume 8.6 fL (9.4-12.4); Platelet Count 227 K/uL (130-400); RDW Coefficient of Variation 16.2 % (11.5-14.5); RDW Standard Deviation 50.3 fL (36.4-46.3); Red Blood Count 5.38 M/uL (4.70-6.10)
[2024-05-17 06:39] LABS: Albumin Globulin Ratio 0.9 (0.9-2); Albumin Level 3.5 gm/dl (3.4-5.0); BUN Creatinine Ratio 20.9 (10-20); Bilirubin,Total 0.9 mg/dl (0.2-1.0); Calcium 9.7 mg/dl (8.6-10.3); Creatinine Clr Calc Pharmacy 91.4 ml/min; Globulin 3.7 gm/dl (2.5-4.0); Magnesium 2.3 mg/dl (1.7-2.4); Potassium 4.1 mmol/L (3.5-5.1); Total Protein 7.2 gm/dl (6.0-8.3)
[2024-05-17 07:21] LABS: Estimated Average Glucose 131 mg/dl; Hemoglobin A1C 6.2 % (4.5-5.6)
[2024-05-17] MEDS: FLUTICASONE PROPIONATE NA SPR 16 GM BTL NAE SCH (08:05)
[2024-05-17] MEDS: FLUTICASONE/VILANTEROL 200/25MCG 14 PUFFS/INHALER INH SCH (08:05)
[2024-05-17] MEDS: MULTIVITAMIN TAB PO SCH (08:07)
[2024-05-17] MEDS: CITALOPRAM 20 MG TAB PO SCH (08:07)
[2024-05-17] MEDS: PANTOprazole 40 MG TAB PO SCH (08:07)
[2024-05-17] MEDS: LOSARTAN POTASSIUM 25 MG TAB PO SCH (08:07)
[2024-05-17] MEDS: FOLIC ACID 1 MG TAB PO SCH (08:08)
[2024-05-17] MEDS: ASCORBIC ACID 500 MG TAB PO SCH (08:08)
[2024-05-17] MEDS: DIGOXIN 0.125 MG TAB PO SCH (08:08)
[2024-05-17] MEDS: ROSUVASTATIN CALCIUM 5 MG TAB PO SCH (08:08)
[2024-05-17] MEDS: ASPIRIN 81 MG CHEW PO SCH (08:08)
[2024-05-17] MEDS: TAMSULOSIN HCL 0.4 MG CAP PO SCH (08:08)
[2024-05-17] MEDS: FERROUS SULFATE 325 MG TAB PO SCH (08:08)
[2024-05-17] MEDS: SPIRONOLACTONE 25 MG TAB PO SCH (08:09)
--- NOTE | 2024-05-17 08:58 | Electrocardiogram Report ---
Test Reason : Blood Pressure : */* mmHG Vent. Rate : 86 BPM Atrial Rate : 86 BPM P-R Int : 136 ms QRS Dur : 106 ms QT Int : 354 ms P-R-T Axes : 67 108 66 degrees QTcB Int : 423 ms Normal sinus rhythm Right ventricular hypertrophy ST depression in Anterior leads Diffuse Nonspecific T wave abnormality Abnormal ECG When compared with ECG of 16-May-2024 11:57, Premature atrial complexes are no longer Present T wave inversion more evident in Inferior leads T wave inversion now evident in Anterolateral leads Confirmed by Be Chaparro ([id number]) on 05/17/2024 8:58:34 AM Referred By: REFERRED SELF Confirmed By: Be Chaparro
[2024-05-17] MEDS ORDERED: cefTRIAXone SODIUM 1,000 MG/50 ML BAG IV SCH (09:00)
[2024-05-17] MEDS ORDERED: SODIUM CHLORIDE 0.65% NA SOLN 45 ML (OCEAN) PRN (09:47)
[2024-05-17] MEDS ORDERED: ALBUTEROL 0.083% NEBU SOLN 3 ML VIAL NEB PRN (09:49)
--- NOTE | 2024-05-17 10:02 | Hospitalist Progress Note ---
Date of Service May 17, 2024 Assessment & Plan (1) Acute on chronic hypoxic respiratory failure: (2) COPD exacerbation: (3) Demand ischemia: (4) Sarcoidosis: (5) ANGELES (obstructive sleep apnea): (6) Pulmonary HTN: (7) DMII (diabetes mellitus, type 2): (8) HTN (hypertension): (9) Elevated troponin: Plan Patient presents with acute on chronic hypoxic respiratory failure in the setting of recent pneumonia. Patient with significant bronchospasm and mucous secretions. This is most likely etiology of the patient's acute hypoxia. Patient had a very good course of outpatient antibiotics prolonged course of oral Levaquin. Low suspicion for active bacterial infection with normal WBCs and a procalcitonin that is low. Suspect patient's symptoms are all related to the side effects of the pneumonia Narrow antibiotics, discontinue Zosyn, start Zithromax for anti-inflammatory effect in setting of COPD exacerbation Transition to oral prednisone, continue the higher dose of 40 mg twice daily Continue Mucinex Scheduled hypertonic saline nebulizers Tessalon Perles as antitussive Continue nebulizer treatments, add as needed albuterol Titrate oxygen down as able Continue to monitor glucose, anticipate higher glucose levels in the setting of steroid use Continue other outpatient medications as ordered Continue home diuretics, monitor electrolytes and renal function Troponin elevation due to demand ischemia associated with his hypoxia in the setting of known pulmonary hypertension and cor pulmonale. Continue BiPAP at night as at home and as needed during the day with sleep Pulmonary consultation pending [place] for [facility] Admission and Anticipated Discharge Date Admission Date: May 16, 2024 Subjective Patient with a significant cough, sometimes productive. Breathing is a little bit better, chest does not feel as tight Physical Exam Physical Exam: Constitutional: Alert, mild respiratory distress HEENT: Mucous membranes moist. Lungs: Decreased breath sounds, prolonged expiratory phase, tight airflow, tight expiratory wheezes, rhonchi that clears with cough CV: S1-S2, regular Abdomen: Soft, nontender, nondistended Extremities: No significant edema Neuro: No focal deficits Psych: Cooperative, normal mood Results & Data Results & Data Vital Signs (Past 12 Hours) Vital Signs Temp Pulse Pulse Resp BP Pulse Ox O2 Del Method 05/17/24 08:08 92 H 05/17/24 07:20 Nasal Cannula 05/17/24 07:16 97 H 05/17/24 07:15 77 22 94 Nasal Cannula 05/17/24 07:14 36.5 C 86 17 103/64 97 Nasal Cannula 05/17/24 02:21 36.6 C 87 18 121/72 92 CPAP 05/16/24 23:10 36.8 C 97 H 18 106/68 92 CPAP 05/16/24 22:00 102 H O2 Flow Rate 05/17/24 08:08 05/17/24 07:20 6 05/17/24 07:16 05/17/24 07:15 6 05/17/24 07:14 6 05/17/24 02:21 05/16/24 23:10 05/16/24 22:00 Diagnostic Findings Reviewed imaging, laboratory and diagnostic studies. Pertinent findings as below. WBCs 8.0 Hemoglobin 15.0 Electrolytes stable Hemoglobin A1c 6.2% Troponins declining Procalcitonin 0.37
[2024-05-17] MEDS: AZITHROMYCIN 250 MG TAB PO SCH (10:42)
--- NOTE | 2024-05-17 10:59 | Pulmonary Consultation ---
Date of Consultation May 17, 2024 Assessment & Plan (1) Multifocal pneumonia: (2) Acute on chronic hypoxic respiratory failure: (3) Sarcoidosis: (4) Restrictive lung disease: (5) Pulmonary HTN: Plan 53-year-old male with a longstanding history of severe pulmonary sarcoidosis, chronic hypoxic respiratory failure on 4 to 6 L of oxygen, group 2/3/5 pulmonary hypertension now presenting with acute left-sided infiltrates. He is status post Augmentin and levofloxacin as an outpatient. He was placed on azithromycin by the hospitalist service. Will add Zosyn given his structural lung disease. Sputum cultures are growing pinpoint organisms and are currently being reincubated. If no Pseudomonas is isolated, then can likely de-escalate therapy in the next 1 to 2 days. Patient was started on prednisone 40 mg twice daily by the hospitalist service. I have decreased this to 40 mg daily. Echo revealed evidence of severe pulmonary hypertension. Will defer right heart catheterization to his outpatient manager emergency department through [facility]. Patient previously did have a right heart catheterization in 2017 which revealed a mean pulmonary artery pressure of 34, wedge of 22 and a PVR of 2.09 Wood units on 5 L of oxygen. He will likely benefit from a repeat right heart catheterization as an outpatient. His BNP on admission was minimally elevated. Patient is on torsemide 80 mg p.o. twice daily as an outpatient. Consider reinitiating diuresis while in the hospital. Continue ICS/LABA medications. Would recommend continue prednisone at a dose of 40 mg daily for 7 days then de-escalating to 20 mg daily indefinitely until he sees his outpatient pulmonary provider. He would need to be initiated on Bactrim every Tuesday, Tuesday and Tuesday for PJP prophylaxis. Should he have a sudden decompensation, would recommend transferring the patient to [facility] for consideration of initiating pulmonary hypertension medications such as IV epoprostenol. Pulmonary will continue to follow. Thank you for the consult. History of Present Illness Reason for Consultation: "Acute on chronic respiratory failure" Attending Physician: Jeffery Dorman DO History of Present Illness 53-year-old male with a history of sarcoidosis, pulmonary hypertension, blastomycosis and chronic hypoxemic respiratory failure followed by pulmonary medicine at [facility] had previously seen by me in consultation while in the hospital in September of this year who presented yesterday due to worsening shortness of breath and productive cough. He was also feeling dizzy and ultimately called EMS. Patient has had on and off URI symptoms since April with nasal congestion and cough. He was treated with Augmentin, prednisone taper and also treated with Levaquin and an additional prednisone taper. Patient notes that he stopped maintenance medications for sarcoid about 2 years ago and was previously on prednisone and methotrexate. While hospitalized he is currently on prednisone 40 mg twice daily, Breo Ellipta 200 mcg daily, Singulair and azithromycin. He had a leukocytosis on admission which is since resolved. He has been afebrile. Respiratory viral panel was negative. MRSA screen negative as well. BNP was 108. Echo 05/17/2024 revealed an LVEF of 65 to 70%. Right ventricle severely dilated. Pulmonary artery systolic pressures estimated at [address] chest report indicated multifocal infiltrates which are new in the left lung since 01/29/2024 concerning for pneumonia. Stable emphysema and bilateral loculated effusions. Pro-Randell 05/16/2024 was 0.37. Blood cultures negative. Sputum cultures from 05/16/2024 with pinpoint growth. PFT 08/13/2022 revealed an FEV1 of 32% predicted and an FVC of 47% predicted. DLCO is 45% predicted. Allergies Allergy/AdvReac Type Severity Reaction Status Date / Time doxycycline AdvReac Severe Vomiting Verified 09/08/23 08:00 Home Medications Medication Instructions Recorded Confirmed Type aspirin 81 mg chewable tablet 81 mg PO QAM 10/08/19 05/16/24 History (Claire Chewable Low Dose Aspirin) citalopram 20 mg tablet 20 mg PO QAM 10/08/19 05/16/24 History digoxin 125 mcg (0.125 mg) tablet 125 mcg PO QAM 10/08/19 05/16/24 History (Digitek) empagliflozin 25 mg tablet 25 mg PO QAM 10/08/19 05/16/24 History (Jardiance) ferrous sulfate 325 mg (65 mg 325 mg PO QAM 10/08/19 05/16/24 History iron) tablet folic acid 1 mg tablet 1 mg PO QAM 10/08/19 05/16/24 History losartan 25 mg tablet 25 mg PO QAM 10/08/19 05/16/24 History metformin 500 mg tablet,extended 1,000 mg PO QAM 10/08/19 05/16/24 History release 24 hr omeprazole 20 mg capsule,delayed 20 mg PO QAM 10/08/19 05/16/24 History release potassium chloride 20 mEq 20 meq PO BID 10/08/19 05/16/24 History tablet,extended release(part/cryst) spironolactone 25 mg tablet 25 mg PO UD 10/08/19 05/16/24 History tamsulosin 0.4 mg capsule 0.4 mg PO DAILY 10/08/19 05/16/24 History torsemide 20 mg tablet 80 mg PO BID 10/08/19 05/16/24 History albuterol sulfate 2.5 mg/3 mL 2.5 mg inhalation DAILY PRN Dyspnea 03/02/22 05/16/24 History (0.083 %) solution for nebulization albuterol sulfate 90 mcg/actuation 2 puff inhalation Q4H PRN Dyspnea 03/02/22 05/16/24 History aerosol inhaler ascorbic acid (vitamin C) 250 mg 500 mg PO QAM 03/02/22 05/16/24 History tablet (Vitamin C) fluticasone propionate 50 2 spray intranasal QAM 03/02/22 05/16/24 History mcg/actuation nasal spray,suspension levocetirizine 5 mg tablet 5 mg PO DAILY PRN Allergy Symptoms 03/02/22 05/16/24 History montelukast 10 mg tablet 10 mg PO HS 03/02/22 05/16/24 History multivitamin 1 tab PO DAILY 03/02/22 05/16/24 History acetaminophen 325 mg tablet 650 mg (2 x 325 mg) PO Q4H PRN 03/04/22 05/16/24 Rx pain #30 tabs tiotropium bromide 2.5 2 puff inhalation DAILY 08/30/23 05/16/24 History mcg/actuation mist for inhalation (Spiriva Respimat) guaifenesin 600 mg tablet, 600 mg PO Q12 PRN mucus 09/08/23 05/16/24 History extended release 12 hr (Mucinex) semaglutide 1 mg/dose (4 mg/3 mL) 4 mg subcut WK 09/08/23 05/16/24 History subcutaneous pen injector (Ozempic) fluticasone furoate 200 1 inh inhalation DAILY 05/16/24 05/16/24 History mcg-vilanterol 25 mcg/dose inhalation powder (Breo Ellipta) rosuvastatin 5 mg tablet 5 mg PO DAILY 05/16/24 05/16/24 History Patient History Surgical History H/O right heart catheterization [facility] [place], [place] S/P bronchoscopy Hx of tonsillectomy Family History Other Cancer Sarcoidosis Social History Smoking Status: Never smoker Tobacco Type: Smokeless Tobacco (Dip or Chew) Second Hand Exposure: No; Do You Dip or Chew Tobacco: Yes; Hx Alcohol Use: Yes Alcohol type: beer Hx Substance Use: No Preferred Language: Citizen Of [place] Communication Ability: Effective Occupational Therapy Co Director Required: No Beliefs That Will Affect Care: None marital status: Single Current Living Situation: Alone How many Children do You have: 0 Other Information That Helps Us Care for You: No Feels Safe at Home: Yes Safety Concerns: Feels Safe At This Time Assistive Devices: Oxygen - Continuous Review of Systems Review of Systems: All systems reviewed & are unremarkable except as noted in HPI & below Physical Exam Physical Exam: Constitutional: Patient appears to be of their stated age. Patient is in no apparent distress. Patient is well-developed. Eyes: Pupils are equal round and reactive to light. Conjunctivae are normal. Anicteric sclera. Ears nose, mouth and throat: Mallampati class 2. Normal posterior oropharynx. Uvula is midline. Neck: Trachea is midline. Visual inspection is normal. Respiratory: Prolonged phase of exhalation. Mild expiratory wheeze. Rhonchi on the left. No increased work of breathing. Cardiovascular: Regular rate and rhythm. No murmurs. No edema. Gastrointestinal: Normal bowel sounds, soft, nontender and nondistended. No hepatosplenomegaly noted. Musculoskeletal: No cyanosis. Patient is able to move all extremities. Strength is 5 out of 5 in the upper and lower extremities. Skin: No rashes, warm dry and intact. Neurologic: No obvious focal neurological deficits seen. Psychiatric: Alert and oriented x3 with a euthymic affect. Results & Data Results & Data Vital Signs (Past 12 Hours) Vital Signs Temp Pulse Pulse Resp BP Pulse Ox O2 Del Method 05/17/24 10:41 36.4 C L 87 17 101/67 94 Nasal Cannula 05/17/24 08:08 92 H 05/17/24 07:20 Nasal Cannula 05/17/24 07:16 97 H 05/17/24 07:15 77 22 94 Nasal Cannula 05/17/24 07:14 36.5 C 86 17 103/64 97 Nasal Cannula 05/17/24 02:21 36.6 C 87 18 121/72 92 CPAP 05/16/24 23:10 36.8 C 97 H 18 106/68 92 CPAP O2 Flow Rate 05/17/24 10:41 6 05/17/24 08:08 05/17/24 07:20 6 05/17/24 07:16 05/17/24 07:15 6 05/17/24 07:14 6 05/17/24 02:21 05/16/24 23:10 PG Care Time/CCT Total # of Minutes Spent Total Time Spent with Patient: Total time spent is greater than 50% in coordination of care (as documented) at patient's floor/unit and/or counseling patient: Coding Level of Care Code 27688 IN/OBS CONSULT LVL 5,80M Diagnoses Multifocal pneumonia J18.9 Acute on chronic hypoxic respiratory failure J96.21 Sarcoidosis D86.9 Restrictive lung disease J98.4 Pulmonary HTN I27.20
[2024-05-17] MEDS ORDERED: cefTRIAXone SODIUM 2,000 MG/50 ML BAG IV SCH (14:00)
[2024-05-17] MEDS: BENZONATATE 100 MG CAPSULE PO SCH (16:21)
[2024-05-17] MEDS: PIPERACILLIN/TAZOBACTAM 4.5 GM/100 ML BAG IV SCH (17:49)
[2024-05-17] MEDS: SODIUM CHLOR 7% 4 ML NEB NEB SCH (19:09)
[2024-05-17] MEDS ORDERED: predniSONE 20 MG TAB PO SCH (21:00)
--- OUTSIDE RECORDS SUMMARY | 2024-05-18 00:27 | External Medical Summary | Summary of Care ---
Author Name Unknown Organization [facility] Address [address] [facility] [place] [address] Phone [phone] Care Team Providers Care Director Of Strategic Sales Name Role Phone Andrzej Downing MD Primary Care Provider [phone] Reason for Visit * Reason Onset Date Comments [facility]: Maintenance 05/16/2024 Encounter Details Date Type Department Care Team (Late st Contact Info) Description 05/16/2024 8:30 AM EST Scheduled Telephone [facility], [facility] [address] [facility] [place] [address] [facility], Nurse [facility] [address] [place] [address] Allergies Active Allergy Reactions Criticality Noted Date Comments Doxycycline Other (Please comment) Low 07/25/2013 Headache documented as of this encounter (statuses as of 05/16/2024) Medications NEBULIZER COMPRESSOR MISCIndications: Shortness of breath,Wheezing, Sarcoidosis Use as directed 1 Each 1 04/19/20 11 Active NEBULIZER/TUBING /MOUTHPIECE KITIndications:S hortness of breath,Wheezing, Sarcoidosis use with nebs 1 Kit 11 04/19/20 11 Active ASPIRIN 81 MG PO TABS 1 tablet by mouth daily Active Misc. Devices MISC Use as directed. BIPAP at night Active DIURETIC TITRATION PLAN If no improvement on day 3, contact heart failure managing provider or [facility] [employer]. 1 Each 05/12/20 18 Active Fluticasone Propionate 50 MCG/ACT Nasal Suspension (FLONASE)Indicat ions:Nasal polyp Administer 2 Sprays into each nostril daily. Use in morning 48 g 3 05/27/20 20 Active Additional Information Patient taking differently:2 [place] Each Nostril Daily(AM),Use in morning as needed, Indications: allergies, Reported on 04/26/2024 Cromolyn Sodium 4 % Ophthalmic Solution (Crolom)Indicati ons:Seasonal allergic rhinitis due to pollen Instill 1 Drop into both eyes 4 times a day as needed for Allergies or Itching. 10 mL 1 09/13/19 21 Active oxygen IN GASIndications:S evere obstructive sleep apnea,Pulmonary hypertension (HCC),Sarcoidosi s of lung (HCC) 2 LPM during rest, 3 LPM while ambulating, 4 LPM through Trilogy during sleep 1 Each 07/21/19 23 Active Montelukast Sodium 10 MG Oral Tablet (Singulair)Indic ations:Increased nasal secretion take 1 tablet by mouth at bedtime 90 Tablet 3 11/04/19 23 Active metOLazone 2.5 MG Oral Tablet (Zaroxolyn)Indic ations:Hypertens mikey heart disease with chronic right-sided congestive heart failure (HCC) Take 2.5 mg daily for three days when weight increases 3 pounds in 24 hours or 5 pounds in one week. 30 Tablet 05/27/20 23 Active Digoxin 125 MCG Oral Tablet (Lanoxin) Take 1 Tablet by mouth in the morning. 90 Tablet 3 06/09/19 24 Active Folic Acid 1 MG Oral Tablet Take 1 Tablet by mouth in the morning. 90 Tablet 3 06/14/19 24 Active Torsemide 20 MG Oral Tablet (Demadex)Indicat ions:Chronic right-sided heart failure (HCC),Congestive heart failure with LV diastolic dysfunction, NYHA class 3 (HCC) take 4 tablets by mouth twice a day 240 Tablet 11 06/14/19 24 Active Ozempic (1 MG/DOSE) 4 MG/3ML Subcutaneous Solution Pen-injector (Semaglutide (1 MG/DOSE))Indicat ions:Type 2 diabetes mellitus with hemoglobin A1c goal of less than 7.0% ([facility]) INJECT 1MG UNDER THE SKIN ONCE WEEKLY 3 mL 5 06/14/19 24 Active Albuterol Sulfate HFA 108 (90 Base) MCG/ACT Inhalation Aerosol Solution INHALE 2 PUFFS BY MOUTH EVERY 4 HOURS NEEDED FOR COUGH, SHORTNESS OF BREATH OR WHEEZING. 18 g 5 07/02/19 24 Active Multivitamin Adult Oral Tablet Take 1 Tablet by mouth in the morning. Active Ascorbic Acid 500 MG Oral Tablet Take 1 Tablet by mouth every morning. Active Breo Ellipta 200-25 MCG/ACT Inhalation Aerosol Powder Breath Activated (fluticasone furoate-vilanter ol) INHALE 1 PUFF BY MOUTH AND INTO THE LUNGS EVERY MORNING 60 Blister Dosing Unit 6 09/08/19 24 Active guaiFENesin ER 600 MG Oral Tablet Extended Release 12 Hour (Mucinex) Take 1 Tablet by mouth 2 times a day as needed for Cough. Active Sodium Chloride 7 % Inhalation Nebulization Solution (Hyper-Sven) Inhale 4 mL via nebulizer in the morning and 4 mL before bedtime. 09/04/19 24 Active Spiriva Respimat 2.5 MCG/ACT Inhalation Aerosol Solution (Tiotropium [place] Monohydrate)Aga cations:breathin g Inhale 2 Puffs by mouth in the morning. 4 g 3 09/14/19 24 Active OneTouch UltraSoft Lancets Use as directed 4 times a day as needed for Hyperglycemia (high sugar) or Hypoglycemia (low sugar). Use up to four times a day as directed 1 Each 11 09/19/19 24 Active OneTouch Verio In Vitro Strip (Glucose Blood) Use up to 4 times a day E11.9 100 Strip 11 09/19/19 24 Active Losartan Potassium 25 MG Oral Tablet (Cozaar)Indicati ons:Chronic right-sided heart failure (HCC),Essential hypertension with goal blood pressure less than 130/80 Take 1 Tablet by mouth in the morning. 90 Tablet 3 09/16/19 24 Active Fluticasone Propionate 50 MCG/ACT Nasal Suspension (Flonase)Indicat ions:Seasonal allergic rhinitis due to pollen Administer 2 Sprays into each nostril in the morning. 48 g 4 09/20/19 24 Active Azelastine HCl 0.1 % Nasal Solution (Astelin)Indicat ions:Seasonal allergic rhinitis due to pollen Administer 1 [place] into nostril in the morning and 1 [place] before bedtime. 30 mL 12 09/20/19 24 Active Desloratadine 5 MG Oral TabletIndication s:Shortness of breath,Chronic obstructive pulmonary disease with acute exacerbation (HCC),Pulmonary hypertension associated with sarcoidosis (HCC),Chronic respiratory failure with hypoxia and hypercapnia (HCC),Oxygen dependent,Season al allergic rhinitis due to pollen Take 1 Tablet by mouth in the morning. 30 Tablet 5 09/20/19 24 Active Empagliflozin 25 MG Oral Tablet (Jardiance)Indic ations:Type 2 diabetes mellitus with hemoglobin A1c goal of less than 7.0% (HCC) TAKE 1 TABLET BY MOUTH ONCE DAILY 90 Tablet 3 10/19/19 24 Active Vitamin D3 1000 UNIT Oral Capsule Take 1 Capsule by mouth in the morning. Active Spironolactone 25 MG Oral Tablet (Aldactone) TAKE 1 TABLET BY MOUTH THREE TIMES A DAY 270 Tablet 3 12/15/19 24 Active FeroSul 325 (65 Fe) MG Oral Tablet (Ferrous Sulfate)Indicati ons:Iron deficiency anemia secondary to inadequate dietary iron intake TAKE 1 TABLET BY MOUTH ONCE DAILY WITH BREAKFAST 90 Tablet 1 12/15/19 24 Active Citalopram Hydrobromide 20 MG Oral Tablet (CeleXA)Indicati ons:Major depressive disorder TAKE 1 TABLET BY MOUTH ONCE DAILY 90 Tablet 2 12/16/19 24 Active Tamsulosin HCl 0.4 MG Oral Capsule (Flomax) take 1 capsule by mouth once daily 90 Capsule 3 12/21/19 24 Active Rosuvastatin Calcium 5 MG Oral Tablet (Crestor)Indicat ions:Type 2 diabetes mellitus with hemoglobin A1c goal of less than 7.0% (HCC) Take 1 Tablet by mouth daily. 90 Tablet 3 01/09/20 24 Active Omeprazole 20 MG Oral Capsule Delayed Release (PriLOSEC) TAKE 1 CAPSULE BY MOUTH EVERY MORNING BEFORE FIRST MEAL OF THE DAY 90 Capsule 3 01/13/20 24 Active metFORMIN HCl ER 500 MG Oral Tablet Extended Release 24 Hour (Glucophage XR) TAKE 2 TABLETS BY MOUTH ONCE DAILY 180 Tablet 2 01/18/20 24 Active Ipratropium-Albu terol 0.5-2.5 (3) MG/3ML Inhalation Solution (Duoneb)Indicati ons:Shortness of breath,Chronic obstructive pulmonary disease with acute exacerbation (HCC),Pulmonary hypertension associated with sarcoidosis (HCC),Chronic respiratory failure with hypoxia and hypercapnia (HCC),Oxygen dependent Inhale 3 mL via nebulizer every 6 hours as needed for Wheezing or Shortness of Breath (cough). 180 mL 5 01/26/20 24 Active Potassium Chloride Bety ER 20 MEQ Oral Tablet Extended ReleaseIndicatio ns:Hypokalemia TAKE 1 TABLET BY MOUTH TWICE A DAY 180 Tablet 1 03/15/20 24 Active Amoxicillin-Pot Clavulanate 875-125 MG Oral Tablet (Augmentin) Take 1 Tablet by mouth in the morning and 1 Tablet before bedtime. 04/23/20 24 Active guaiFENesin ER 600 MG Oral Tablet Extended Release 12 Hour (Mucinex) Take 1 Tablet by mouth 2 times a day as needed for Congestion. Take with plenty of water. Do not cut, crush or chew 40 Tablet 2 04/26/20 24 Active predniSONE 20 MG Oral Tablet (Deltasone) 1 tab 3 times a day for 3 days, then 1 tab 2 times a day for 3 days, then 1 tab daily for 3 days 18 Tablet 05/06/20 24 Active levoFLOXacin 500 MG Oral Tablet (Levaquin) Take 1 Tablet by mouth in the morning for 10 days. until gone.. 10 Tablet 05/06/20 24 024 Active Hospital, Clinic, or Other Facility Administered Medication Ordered Dose Route Frequency Start Date End Date Status albuterol sulfate (PROVENTIL) (2.5 MG/3ML) 0.083% inhalation solution 2.5 mgIndications:Pulmonary hypertension (HCC),Chronic right-sided heart failure (HCC),Sarcoidosis,Oxygen dependent 2.5 mg NEBULIZER Q4H PRN 06/03/2017 Active Albuterol Sulfate (Proventil) (2.5 MG/3ML) 0.083% inhalation solution 2.5 mgIndications:Pulmonary hypertension (HCC) 2.5 mg NEBULIZER ONCE PRN 04/13/2024 Active documented as of this encounter (statuses as of 05/16/2024) Active Problems Problem Noted Date Diagnosed Date COPD, group C, by GOLD 2017 classification 10/16 Overview: Per COPD GOLD Classification Obesity hypoventilation syndrome 09/30/2022 Hypertensive heart disease w ith chronic right-sided congestive heart failure 09/30/2022 Assessment & Plan (11/11/2023 12:23 PM EDT): "RED FLAG" HF Symptoms: Leg Swelling (Examples: "I can't wear certain socks or shoes", "My pants feel tight") Abdominal Bloating (Examples: "I can't wear certain pants", "My belly feels hard", "I look ") Increased dyspnea on exertion (Example: "I can't walk to the kitchen or up the stairs") Medication Regimen: Beta Jonah Therapy: No beta-jonah secondary to unknown JAC Inhibitor/ARB Therapy: Losartan Diuretic therapy: Torsemide Metolazone Aldactone SGLT2 Inhibitor: empagliflozin (ex. Jardiance) Remote Patient Monitoring Vendor: [employer] Device(s): Connected Scale Self - Management Plan Add metolazone (Zaroxolyn) 2.5-5mg for 1 days. 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 Overview (07/05/2020): MXT started August 2011, max 17.5 mg weekly Calculated total dose MTX: Jun 20, 2014 - 2,483 mg Assessment & Plan (11/11/2023 12:26 PM EDT): No longer on methotrexate Continue to follow with pulmonary Congestive heart failure wit h LV diastolic dysfunction, NYHA class 3 01/16/2016 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 Assessment & Plan (11/11/2023 12:28 PM EDT): Follows with [facility] Dexa scheduled 11/15 Chronic right-sided heart failure 09/07/2012 Severe obstructive sleep apnea 12/24/2011 Overview (12/28/2013): 09/04/12 BIPAP 15/9, 6 LPM -- low 84%, mean 92.7%, <89% 5:12 mins, CIRILO 5.1 09/01/12 -- BIPAP auto 9-15 cwp 12/10/11 PSG -- AHI 91.5, significant hypoxemia [facility] documented as of this encounter (statuses as of 05/16/2024) Resolved Problems Problem Noted Date Diagnosed Date Resolved Date Hospital discharge follow-up 09/14/2023 11/06/2023 Chronic obstructive pulmonary disease 09/30/2022 10/19/2023 Overview: Per COPD GOLD Classification Pulmonary hypertension due t o left heart disease 09/30/2022 09/14/2023 Pulmonary hypertension due t o lung diseases and hypoxia 09/30/2022 09/14/2023 Polyneuropathy in other dise ases classified elsewhere [...] Paranasal sinus disease 07/19/201306/07 [employer] Other*[id number] 06/08/2013 07/13/2016 Overview (06/08/2013): Study Title: Genomic Markers for Patients with Cardiovascular Disease Project # [id number] Action Installer: Ariana Brady MD [phone] HTN, goal below 130/80 06/03/201302/25 Cholecystolithiasis 09/20/2012 07/02/19 19 Obesity, Class III, BMI 40-4 9.9 (morbid obesity) 12/23/2011 01/05/2017 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 term care social worker current use of systemic steroids 11/05/2011 07/02/2018 Immunocompromised, acquired 08/19/2011 09/30/2022 Asthma with severity to be determined 12/01/2009 07/22/2011 Overview (09/15/2015): Per Asthma Taxonomy ICD-10 update of inactive term Obesity, Class II, BMI 35-39 .9, isolated (see actual BMI) 11/17/2009 12/05/2016 Overview (11/17/2009): Per Obesity Protocol, #19 SARCOIDOSIS with severe obstructive lung ds 06/12/2009 07/05/2020 Overview (07/05/2020): duplicate ADVANCE DIRECTIVE INFORMATION 04/01/2009 10/17/2018 Overview (04/01/2009): No, Advance Directive brochure given to patient. Family history of diabetes mellitus 10/21/2008 11/05/2016 Family history of cardiovascular disease 10/21/2008 11/05/2016 Asthma, allergic 10/21/2008 12/01/2009 Acute bronchitis, antibiotics not indicated 07/27/2005 08/01/2008 Overview (08/01/2008): Resolved per Benign Acute Dxs Protocol #3 ACUTE SINUSITIS NOS 07/27/2005 07/25/19 09 Overview (07/25/2008): Resolved per Benign Acute Dxs Protocol #3 ACUTE URI NOS 07/27/2005 07/25/2008 Overview (07/25/2008): Resolved per Benign Acute Dxs Protocol #3 Cough 07/27/2005 12/24/2009 Major depressive disorder 03/22/2000 Overview (03/29/2017): ICD-10 update of inactive term Acute on chronic respiratory failure with hypoxia 05/27/2020 COVID-19 01/06/2020 Pulmonary hypertension 05/27 documented as of this encounter (statuses as of 05/16/2024) Immunizations Name Administration Dates Next Due COVID-19 mRNA, LNP-s, No Pre serve, 2-Dose Series (Moderna) 08/08/2020,07/11/2020 PPD 08/29/2012,08/24/2011 Pneumococcal Conjugate Vacc, 13 Valent (Prevnar) 05/20/2017 Pneumococcal Polysaccharide PPV23 (Pneumovax) 04/19/2014,04/14/2009 Seasonal Influenza Vac., MDV , IM, 0.5 mL (Fluzone) 04/19/2014,05/02/2013(Deferred: Patient Refused) Seasonal Influenza Virus Vac cine, Unspecified Formulation 02/28/2019,04/10/2018,05/20/2017,03/06,04/19/2014 Seasonal Influenza, PF, 6 M & above, IM , (FluLaval or Fluzone) 04/04/2023,03/12/2022,02/06/2021,03/05,02/28/2019,04/10/2018 Seasonal Influenza, Quadriva lent, No Preserve, IM 05/20/2017,04/21/2015 TD, Preservative Free 09/18/2018 TDAP, Age 7 and older, IM (Adacel) 09/11/2008 documented as of this encounter Social History Tobacco Use Types Packs/Day Years Used Date Smoking Tobacco: Never Cigarettes Smokeless Tobacco: Current Snuff Comments:Currently using bet ween 1/2 can to 3/4 can of snuff/day Alcohol Use Standard Drinks/Week Comments Yes 0 (1 standard drink = 0.6 oz pur e alcohol) 1-2 every couple of weeks PHQ-2 Answer Date Recorded PHQ Adult Total Score 0 04/26/2024 Hunger Vital Sign Answer Date Recorded Within [...] Recorded Sex Assigned at Not on file Legal Sex Male 7:13 AM EST Gender Identity Not on file Sexual Orientation Not on file 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 Answer Date of Assessment Author No 07/21/2014 1:02 PM Dinorah Soto RN * Are you blind or do you have serious difficulty seeing, even when wearing glasses? Answer Date of Assessment Author No 07/21/2014 1:02 PM Dinorah Soto RN * Do you have serious difficulty walking or climbing stairs? (5 years old or older) Answer Date of Assessment Author Yes 07/21/2014 1:02 PM Dinorah Soto RN * Do you have difficulty dressing or bathing? (5 years old or older) Answer Date of Assessment Author No 07/21/2014 1:02 PM Dinorah Soto RN * Because of a physical, mental, or emotional condition, do you have difficulty doing errands alone such as visiting a doctors office or shopping? (15 years old or older) Answer Date of Assessment Author No 07/21/2014 1:02 PM EST Dinorah Sawant RN documented as of this encounter Mental Status * Because of a physical, mental, or emotional condition, do you have serious difficulty concentrating, remembering, or making decisions? (5 years old or older) Answer Entry Date Author No 07/21/2014 1:02 PM Dinorah Soto RN documented in this encounter Miscellaneous Notes * Telephone Encounter - Margaret Strange RN - 05/16/2024 9:18 AM EST Outgoing call to pt to f/u- see how he is feeling today and find out if he heard from his PCP with any advice? Left message suggesting [facility] acute HV if he is not improved and if he is agreeable to same. Left a detailed message on his machine requesting return call to [facility], [phone]# provided. Will send to the pt's [facility] care team. Margaret OROPEZA, RN [facility] Intake Nurse Navigator Triage documented in this encounter Plan of Treatment Upcoming Encounters Date Type Department Care Team (Late st Contact Info) Description 05/18/2024 2:30 PM EST Home Visit [facility] [address] [place] [address] Susan Sutherland RN [address] [place] [phone] 05/24/2024 2:30 PM EST Nutrition Services Nutrition & Weight Management, [facility] [address] [place] [address] Louise Zarate RDN [address] [place] [address] 07/16/2024 2:30 PM EST Cardiac Studies Cardiac Studies, [facility] [address] [place] [id number] 08/28/2024 10:30 AM EDT Office Visit [facility] [address] [place] [phone] Jyotsna Shah CRNP [address] [place] [address] 11/01/2024 2:40 PM EDT Office Visit [facility] [place] [place] [phone] Andrzej Downing MD [address] [place] [address] Health Maintenance Due Date Last Done Comments Alpha-1 Antitrypsin 10/27/1987 Cologuard 2014 Colonoscopy 2014 Colorectal Cancer Screening 2014 Fecal Occult Blood Test 2014 Sigmoidoscopy 2014 *BISPHONATE OR OTHER ACCEPTABLE MEDICATION NEEDED FOR OSTEOPOROSIS (REFER TO SMARTSET #1146) 07/11/2021 DIG LEVEL FOR MEDICATION MONITORING YEARLY 09/02/2021 09/02/2020, 07/12/2019, 06/02/2018 COVID-19 Vaccine ( season) 2024 08/08/2020, 07/11/2020 Influenza Vaccine (FLU shot) (#1) 2024 04/04/2023, 03/12/2022, 02/06/2021, Additional history exists HbA1c 07/15/2024 01/13/2024, 09/04, 09/23/2022, Additional history exists Albumin/Creatinine Ratio 09/19/2024 024, 03/30/2022, 06/02/2018 B-12 09/19/2024 09/20/2023, 09/05, 02/05/2021, Additional history exists Diabetic Eye Exam 10/12/2024 10/13/2023, , 10/14/2022, Additional history exists Diabetic Foot Exam 02/06/2025 01/02/2021, 11/08/2018 Postponed from 01/02/2022 (Patient Declined After Education) Zoster Vaccines (1 of 2) 02/06/2025 Pos tponed from 10/27/2019 (Patient Declined After Education) GFR 04/13/2025 04/13/2024, 08/02/2024, 10/24/2023, Additional history exists Depression Monitoring 04/26/2025 04/26/2024 O2 ASSESSMENT COMPLETED IN PAST YEAR FOR COPD 04/26/2025 04/26/2024 DXA Scan 11/15/2025 11/16/2023, 02/04, 01/08/2019, Additional history exists DTap/Tdap Vaccines (3 - Td or Tdap) 09/18/2028 09/18/2018, 09/11/2008 Lipid Panel 01/12/2029 01/13/2024, 03/07, 09/03/2021, Additional history exists Pneumococcal Vaccine: Pediatrics (0 to 5 Years) and At-Risk Patients (6 to 64 Years) (3 of 3 - PPSV23 or PCV20) 2034 05/20/2017, 04/19/2014, 04/14/2009 VITAMIN D LEVEL ONCE IN A LIFETIME-USE SMARTSET# 56014 Completed 09/23/2022, 09/03/2021, 08/30/2018, Additional history exists HPV (Gardasil) Vaccine Aged Out No lo nger eligible based on patient's age to complete this topic Hepatitis B Vaccine Discontinued MENINGOCOCCAL (MENACTRA/MENVEO) Aged Out No longer eligible based on patient's age to complete this topic documented as of this encounter Medical Devices Not on filedocumented as of this encounter Advance Directives * Full Code (Latest Code Status on File) Date Activated Date Inactivated Comments 10/16/2019 3:21 PM 10/23/2019 11:17 PM This order reflects the patients wishes and were consensually agreed upon. * Full Code Date Activated Date Inactivated Comments 07/21/2014 12:09 PM 08/14/2014 3:41 PM This order reflects the patients wishes and were consensually agreed upon. Question Answer Comments Discussion of Advance Directives occurred with: Patient Does the patient have a Living Will? No Does the patient have Health Care Power of Attor ambreen? No Care Teams Director Of Strategic Sales Relationship Specialty Start Date End Date Andrzej Downing MD [address] [facility] [place] [address] PCP - General Family Medicine 03/20/19 documented as of this encounter
--- OUTSIDE RECORDS SUMMARY | 2024-05-18 00:27 | External Medical Summary | Summary of Care ---
Author Name Unknown Organization [facility] Address [address] [place] [address] Phone [phone] Care Team Providers Care Time Signal Wirer Name Role Phone Andrzej Downing MD Primary Care Provider +1- [phone] Reason for Visit * Reason Onset Date Comments [facility]: Maintenance 05/15/2024 Encounter Details Date Type Department Care Team (Late st Contact Info) Description 05/15/2024 Telephone [facility], [facility] [address] [facility] [place] [address] Margaret Strange RN [address] [place] [facility] [place] [address] [facility]: Maintenance Allergies Active Allergy Reactions Criticality Noted Date Comments Doxycycline Other (Please comment) Low 07/25/2013 Headache documented as of this encounter (statuses as of 05/15/2024) Medications NEBULIZER COMPRESSOR MISCIndications: Shortness of breath,Wheezing, [...] failure managing provider or [facility] Bead Cutter. 1 Each 05/12/20 18 Active Fluticasone Propionate 50 MCG/ACT Nasal Suspension (FLONASE)Indicat ions:Nasal polyp Administer 2 Sprays into each nostril daily. Use in morning 48 g 3 05/27/20 20 Active Additional Information Patient taking differently:2 [place] Each Nostril Daily(AM),Use in morning as needed, [...] hemoglobin A1c goal of less than 7.0% ([facility]) INJECT 1MG UNDER THE SKIN [...] Respimat 2.5 MCG/ACT Inhalation Aerosol Solution (Tiotropium [place] Monohydrate)Aga cations:breathin g Inhale 2 Puffs by [...] allergic rhinitis due to pollen Administer 1 [place] into nostril in the morning and 1 [place] before bedtime. 30 mL 12 09/20/19 24 [...] as of this encounter (statuses as of 05/15/2024) Active Problems Problem Noted Date Diagnosed Date [...] empagliflozin (ex. Jardiance) Remote Patient Monitoring Vendor: moziy Device(s): Connected Scale Self - Management Plan [...] as of this encounter (statuses as of 05/15/2024) Resolved Problems Problem Noted Date Diagnosed Date [...] Paranasal sinus disease 07/19/201306/07 [employer] Other*[id number] 06/08/2013 07/13/2016 Overview (06/08/2013): Study Title: Genomic Markers for Patients with Cardiovascular Disease Project # [id number] Jig Mill Operator: Ariana Brady MD [phone] HTN, goal below 130/80 06/03/201302/25 Cholecystolithiasis 09/20/2012 07/02/19 19 Obesity, Class III, BMI 40-4 9.9 (morbid obesity) 12/23/2011 01/05/2017 assisted current use of systemic steroids 11/05/2011 07/02/2018 [...] as of this encounter (statuses as of 05/15/2024) Immunizations Name Administration Dates Next Due COVID-19 [...] (FluLaval or Fluzone) 04/04/2023,03/12/2022,02/06/2021,03/05,02/28/2019,04/10/2018 Seasonal Influenza, Quadriva mina, No Preserve, IM 05/20/2017,04/21/2015 TD, Preservative Free [...] 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 (5 years old or older) Answer Entry Date Author No 07/21/2014 1:02 PM Dinorah Soto RN documented in this encounter Miscellaneous Notes * Telephone Encounter - Margaret Strange RN - 05/15/2024 4:17 PM EST Received call from pt who is wondering if his RNRA Lobatolie is on today visiting patients? Advised that she is not working today. The pt states that he called his PCP office earlier today and he has not heard back from them yet so he was wondering if someone from [facility] was in the area today and could see him? Advised [facility] staff are ordinarily done for the day, see their last patient around 4- 4:30 pm. Per chart review the pt had called his PCP re: Call from patient who states he has finished all hisantibiotics. Patient still has a non productive cough and chest congestion doesn't think he has a fever but doesn't have a thermometer to check. Hasn't been sleeping well either. Advised the pt that his PCP office will probably be calling him back soon as the offices generally make their calls back to the pt near the end of the day. While on the phone with the pt he states that he thinks that the PCP office was just calling him now. Advised pt that [facility] can call him tomorrow to f/u on how he is feeling and if a HV is warranted thenschedule him at that time. He verbalized understanding of same. Margaret OROPEZA, RN [facility] Intake Nurse Navigator Triage documented in this encounter Plan of Treatment Upcoming Encounters Date Type Department Care Team (Late st Contact Info) Description 05/16/2024 8:30 AM EST Scheduled Telephone [facility], [address] [place] [address] [facility], Nurse [facility] [address] [place] [address] 05/18/2024 2:30 PM EST [facility] Visit [facility], [facility] [address] [place] [address] Susan Sutherland RN 132 [facility] [place] [address] 05/24/2024 2:30 PM EST Nutrition Services Nutrition & Weight Management, [facility] 132 [facility] [place] [address] Louise Zarate RDN [address] [place] [address] 07/16/2024 2:30 PM EST Cardiac Studies Cardiac Studies, [facility] 132 [facility] [place] [address] 08/28/2024 10:30 AM EDT Office Visit [facility] Disorders Ctr [facility] 132 [facility] [place] [phone] Jyotsna Shah CRNP 132 [facility] [place] [address] 11/01/2024 2:40 PM EDT Office Visit [facility] [address] [facility] [place] [phone] Andrzej Downing MD 226 [facility] [place] [address] Health Maintenance Due Date Last Done Comments [...] (Patient Declined After Education) GFR 04/13/2025 04/13/2024, 08/0 02/2024, 10/24/2023, Additional history exists Depression Monitoring 04/26/2025 [...] D LEVEL ONCE IN A LIFETIME-USE SMARTSET# [id number] Completed 09/23/2022, 09/03/2021, 08/30/2018, Additional history exists [...] Power of Attor ambreen? No Care Teams Time Signal Wirer Relationship Specialty Start Date End Date Andrzej Downing MD [address] [place] [address] PCP - General Family Medicine 03/20/19 documented as of this encounter
--- OUTSIDE RECORDS SUMMARY | 2024-05-18 00:27 | External Medical Summary | Summary of Care ---
Author Name Unknown Organization [facility] Address [address] [facility] [place] [address] Phone [phone] Care Team Providers Care Punchboard Filling Machine Operator Name Role Phone Andrzej Downing MD Primary Care Provider [phone]- [phone] Reason for Visit * Reason Onset Date Comments [facility]: Maintenance 05/16/2024 Encounter Details Date Type Department Care Team (Late st Contact Info) Description 05/16/2024 8:30 AM EST Scheduled Telephone [facility], [facility] 132 [facility] [place] [address] [facility], Nurse [facility] 132 [facility] [place] [address] Allergies Active Allergy Reactions Criticality Noted Date [...] failure managing provider or [facility] Game Show Host. 1 Each 05/12/20 18 Active Fluticasone Propionate 50 MCG/ACT Nasal Suspension (FLONASE)Indicat ions:Nasal polyp Administer 2 Sprays into each nostril daily. Use in morning 48 g 3 05/27/20 20 Active Additional Information Patient taking differently:2 [place] Each Nostril Daily(AM),Use in morning as needed, [...] goal of less than 7.0% ([facility]) INJECT 1MG UNDER THE SKIN ONCE [...] Respimat 2.5 MCG/ACT Inhalation Aerosol Solution (Tiotropium [place] Monohydrate)Aga cations:breathin g Inhale 2 Puffs by [...] allergic rhinitis due to pollen Administer 1 [place] into nostril in the morning and 1 [place] before bedtime. 30 mL 12 09/20/19 24 [...] empagliflozin (ex. 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 Left message suggesting [facility] acute HV if he is not improved and if he is agreeable to same. Left a detailed message on his machine requesting return call to [facility], [phone]# provided. Will send to the pt's [facility] care team. Margaret OROPEZA, RN [facility] Intake Nurse Navigator Triage documented in this encounter Plan of Treatment Upcoming Encounters Date Type Department Care Team (Late st Contact Info) Description 05/18/2024 2:30 PM EST Home Visit [facility] [address] [place] [address] Susan Sutherland RN 132 [place] [address] 05/24/2024 2:30 PM EST Nutrition Services Nutrition & Weight Management, [facility] [address] [place] [address] Louise Zarate RDN 132 [place] [address] 07/16/2024 2:30 PM EST Cardiac Studies Cardiac Studies, [facility] [address] [place] [address] 08/28/2024 10:30 AM EDT Office Visit Sleep Disorders Ctr [facility] [address] [place] [phone] Jyotsna Shah CRNP [address] [place] [address] 11/01/2024 2:40 PM EDT Office [facility], [place] [address] [place] [phone] Andrzej Downing MD [address] [place] [address] Health Maintenance Due Date Last Done Comments [...] D LEVEL ONCE IN A LIFETIME-USE SMARTSET# 27732 Completed 09/23/2022, 09/03/2021, 08/30/2018, Additional history exists [...] Power of Attor ambreen? No Care Teams Punchboard Filling Machine Operator Relationship Specialty Start Date End Date Andrzej Downing MD [address] [facility] [place] [address] PCP - General Family Medicine 03/20/19 documented as of this encounter
--- OUTSIDE RECORDS SUMMARY | 2024-05-18 00:27 | External Medical Summary | Summary of Care ---
Author Name Unknown Organization [facility] Address [address] [place] [address] Phone [phone] Care Team Providers Care Special Projects Coordinator Name Role Phone Andrzej Downing MD Primary Care Provider +1- [phone] Reason for Visit * Reason Onset Date Comments [facility]: Maintenance 05/15/2024 Encounter Details Date Type Department Care Team (Late st Contact Info) Description 05/15/2024 Telephone [facility], [facility] [address] [facility] [place] [address] Margaret Strange RN [address] [facility] [place] [address] [facility]: Maintenance Allergies Active Allergy [...] failure managing provider or [facility] Shoe Repair Cobbler. 1 Each 05/12/20 18 Active Fluticasone Propionate 50 MCG/ACT Nasal Suspension (FLONASE)Indicat ions:Nasal polyp Administer 2 Sprays into each nostril daily. Use in morning 48 g 3 05/27/20 20 Active Additional Information Patient taking differently:2 [place] Each Nostril Daily(AM),Use in morning as needed, [...] hemoglobin A1c goal of less than 7.0% ([facility]) INJECT 1MG UNDER THE SKIN [...] Respimat 2.5 MCG/ACT Inhalation Aerosol Solution (Tiotropium [place] Monohydrate)Aga cations:breathin g Inhale 2 Puffs by [...] allergic rhinitis due to pollen Administer 1 [place] into nostril in the morning and 1 [place] before bedtime. 30 mL 12 09/20/19 24 [...] empagliflozin (ex. Jardiance) Remote Patient Monitoring Vendor: Tattva Device(s): Connected Scale Self - Management Plan [...] Paranasal sinus disease 07/19/201306/07 [employer] Other*[id number] 06/08/2013 07/13/2016 Overview (06/08/2013): Study Title: Genomic Markers for Patients with Cardiovascular Disease Project # [id number] Sodium Chlorite Operator: Ariana Brday MD [phone] HTN, goal below 130/80 06/03/201302/25 Cholecystolithiasis 09/20/2012 07/02/19 19 Obesity, Class III, BMI 40-4 9.9 (morbid obesity) 12/23/2011 01/05/2017 correction current use of systemic steroids 11/05/2011 07/02/2018 [...] 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 Advised [facility] staff are ordinarily done for [...] just calling him now. Advised pt that [facility] can call him tomorrow to f/u on how he is feeling and if a HV is warranted thenschedule him at that time. He verbalized understanding of same. Margaret OROPEZA, RN [facility] Intake Nurse Navigator Triage documented in this encounter Plan of Treatment Upcoming Encounters Date Type Department Care Team (Late st Contact Info) Description 05/16/2024 8:30 AM EST Scheduled Telephone [facility] [place], [address] [place] [address] [facility], Nurse [facility] [address] [place] [address] 05/18/2024 2:30 PM EST [facility], [facility] [address] [place] [address] Susan Sutherland RN 132 [facility] [place] [address] 05/24/2024 2:30 PM EST Nutrition Services Nutrition & Weight Management, [facility] [address] [facility] [place] [address] Louise Zarate RDN [address] [place] [address] 07/16/2024 2:30 PM EST Cardiac Studies Cardiac Studies, [facility] 132 [facility] [place] [address] 08/28/2024 10:30 AM EDT Office Visit [facility] Disorders Ctr [facility] 132 [facility] [place] [phone] Jyotsna Shah CRNP 132 [facility] [place] [address] 11/01/2024 2:40 PM EDT Office Visit [facility] 226 [facility] [place] [phone] Andrzej Downing MD 226 [facility] [place] [address] Health Maintenance Due Date Last Done Comments [...] D LEVEL ONCE IN A LIFETIME-USE SMARTSET# [id number] Completed 09/23/2022, 09/03/2021, 08/30/2018, Additional history exists [...] Power of Attor ambreen? No Care Teams Special Projects Coordinator Relationship Specialty Start Date End Date Andrzej Downing MD [address] [place] [address] PCP - General Family Medicine 03/20/19 documented as of this encounter
--- OUTSIDE RECORDS SUMMARY | 2024-05-18 00:28 | External Medical Summary | Summary of Care ---
Author Name Unknown Organization [facility] Address [address] [place] [address] Phone [phone] Care Team Providers Care Climatology Teacher Name Role Phone Andrzej Downing MD Primary Care Provider +1- [phone] Reason for Visit * Reason Comments Outpatient Testing Encounter Details Date Type Department Care Team (Late st Contact Info) Description 04/13/2024 4:30 PM EST Laboratory Outpatient Laboratory, [place] [address] [place] [address] [place], Lab B1a [address] [place] [address] [employer] Research Other*[id number]; Pulmonary hypertension (HCC) Allergies Active Allergy Reactions Criticality Noted Date Comments Doxycycline Other (Please comment) Low 07/25/2013 Headache documented as of this encounter (statuses as of 04/13/2024) Medications NEBULIZER COMPRESSOR MISCIndications: Shortness of breath,Wheezing, [...] failure managing provider or [facility] Operator. 1 Each 05/12/20 18 Active Fluticasone Propionate 50 MCG/ACT Nasal Suspension (FLONASE)Indicat ions:Nasal polyp Administer 2 Sprays into each nostril daily. Use in morning 48 g 3 05/27/20 20 Active Additional Information Patient taking differently:2 [place] Each Nostril Daily(AM),Use in morning as needed, Indications: allergies, Reported on 04/22/2022 Cromolyn Sodium 4 % Ophthalmic Solution (Crolom)Indicati [...] LV diastolic dysfunction, NYHA class 3 ([facility]) take 4 tablets by mouth twice a day 240 Tablet 11 06/14/19 24 Active Ozempic (1 MG/DOSE) 4 MG/3ML Subcutaneous Solution Pen-injector (Semaglutide (1 MG/DOSE))Indicat ions:Type 2 diabetes mellitus with hemoglobin A1c goal of less than 7.0% ([facility]) INJECT 1MG UNDER THE SKIN ONCE [...] Respimat 2.5 MCG/ACT Inhalation Aerosol Solution (Tiotropium [place] Monohydrate)Aga cations:breathin g Inhale 2 Puffs by [...] allergic rhinitis due to pollen Administer 1 [place] into nostril in the morning and 1 [place] before bedtime. 30 mL 12 09/20/19 24 [...] DAY 180 Tablet 1 03/15/20 24 Active Hospital, Clinic, or Other Facility Administered [...] as of this encounter (statuses as of 04/13/2024) Active Problems Problem Noted Date Diagnosed Date [...] empagliflozin (ex. Jardiance) Remote Patient Monitoring Vendor: uTest Device(s): Connected Scale Self - Management Plan [...] as of this encounter (statuses as of 04/13/2024) Resolved Problems Problem Noted Date Diagnosed Date [...] Paranasal sinus disease 07/19/201306/07 [employer] Other*[id number] 06/08/2013 07/13/2016 Overview (06/08/2013): Study Title: Genomic Markers for Patients with Cardiovascular Disease Project # [id number] Easement Man: Ariana Brady MD [phone] HTN, goal below 130/80 06/03/201302/25 Cholecystolithiasis 09/20/2012 07/02/19 19 Obesity, Class III, BMI 40-4 9.9 (morbid obesity) 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 11/05/2011 07/02/2018 [...] as of this encounter (statuses as of 04/13/2024) Immunizations Name Administration Dates Next Due COVID-19 [...] 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 Not [...] Dinorah Soto RN documented in this encounter Plan of Treatment Upcoming Encounters Date Type Department Care Team (Late st Contact Info) Description 04/26/2024 1:20 PM EST [facility] [address] [place] [phone] Andrzej Downing MD [address] [facility] [place] [address] 04/30/2024 10:30 AM EST Office Visit Cardiology, [facility] 132 [facility] [place] [address] Aburee Jean PA-C [address] [place] [address] [place] [address] 05/04/2024 1:20 PM EST Office Visit [facility] Ctr [facility] 132 [facility] [place] [phone] Cathie Rothman DO 132 [facility] [place] [address] 05/18/2024 2:30 PM EST [facility], [facility] 132 [facility] [place] [address] Susan Sutherland RN 132 [facility] [place] [address] 05/24/2024 2:30 PM EST Nutrition Services Nutrition & Weight Management, [facility] 132 [facility] [place] [address] Louise Zarate RDN 132 [facility] [place] [address] 07/16/2024 2:30 PM EST Cardiac Studies Cardiac Studies, [facility] 132 [facility] [place] [address] Pending Results Name Type Priority Associated Diagnoses Date /Time MYCODE INITIAL ADULT Lab Routine MyCode Research Other*[id number] 04/13/2024 3:59 PM EST CBC WITH WBC DIFFERENTIAL Lab Routine Pulmonary hypertension ([facility]) 04/13/2024 3:59 PM EST COMPREHENSIVE METABOLIC PANEL Lab Routine Pulmonary hypertension ([facility]) 04/13/2024 3:59 PM EST BNP, NT-PRO Lab Routine Pulmonary hypertension ([facility]) 04/13/2024 3:59 PM EST MYCODE INITIAL ADULT-PINK Lab Routine [employer] Research Other*[id number] 04/13/2024 3:59 PM EST MYCODE SST1 Lab Routine [employer] Research Other*[id number] 04/13/2024 3:59 PM EST MYCODE SST2 Lab Routine [employer] Research Other*[id number] 04/13/2024 3:59 PM EST CBC Lab Routine Pulmonary hypertension ([facility]) 04/13/2024 3:59 PM EST DIFFERENTIAL, AUTOMATED Lab Routine Pulmonary hypertension ([facility]) 04/13/2024 3:59 PM EST Health Maintenance Due Date Last Done Comments Alpha-1 Antitrypsin 10/27/1987 Cologuard 2014 Colonoscopy 2014 Colorectal Cancer Screening 2014 Fecal Occult Blood Test 2014 Sigmoidoscopy 2014 *BISPHONATE OR OTHER ACCEPTABLE MEDICATION NEEDED FOR OSTEOPOROSIS (REFER TO SMARTSET #1146) 07/11/2021 DIG LEVEL FOR MEDICATION MONITORING YEARLY 09/02/2021 09/02/2020, 07/12/2019, 06/02/2018 Depression Monitoring 10/01/2023 09/30/2022 COVID-19 Vaccine ( season) 2024 08/08/2020, 07/11/2020 Influenza Vaccine (FLU shot) (#1) 2024 04/04/2023, 03/12/2022, 02/06/2021, Additional history exists HbA1c 07/15/2024 01/13/2024, 09/04, 09/23/2022, Additional history exists Albumin/Creatinine Ratio 09/19/2024 024, 03/30/2022, 06/02/2018 B-12 09/19/2024 09/20/2023, 09/05, 02/05/2021, Additional history exists Diabetic Eye Exam 10/12/2024 10/13/2023, , 10/14/2022, Additional history exists GFR 01/12/2025 01/13/2024, 10/05, 09/20/2023, Additional history exists Diabetic Foot Exam 02/06/2025 01/02/2021, 11/08/2018 Postponed from 01/02/2022 (Patient Declined After Education) Zoster Vaccines (1 of 2) 02/06/2025 Pos tponed from 10/27/2019 (Patient Declined After Education) O2 ASSESSMENT COMPLETED IN PAST YEAR FOR COPD 04/13/2025 04/13/2024 DXA Scan 11/15/2025 11/16/2023, 02/04, 01/08/2019, Additional history exists DTap/Tdap Vaccines (3 - Td or Tdap) 09/18/2028 09/18/2018, 09/11/2008 Lipid Panel 01/12/2029 01/13/2024, 03/07, 09/03/2021, Additional history exists Pneumococcal Vaccine: Pediatrics (0 to 5 Years) and At-Risk Patients (6 to 64 Years) (3 of 3 - PPSV23 or PCV20) 2034 05/20/2017, 04/19/2014, 04/14/2009 VITAMIN D LEVEL ONCE IN A LIFETIME-USE SMARTSET# [id number] Completed 09/23/2022, 09/03/2021, 08/30/2018, Additional history exists HPV (Gardasil) Vaccine Aged Out No lo nger eligible based on patient's age to complete this topic Hepatitis B Vaccine Discontinued MENINGOCOCCAL (MENACTRA/MENVEO) Aged Out No longer eligible based on patient's age to complete this topic documented as of this encounter Medical Devices Not on filedocumented as of this encounter Visit Diagnoses Diagnosis Advanced care planning/counseling discussion- Primary Other specified counseling Hypertensive heart disease with chronic right-sided congestive heart failure (HCC) Sarcoidosis of lung (HCC) Sarcoidosis 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 No Care Teams Climatology Teacher Relationship Specialty Start Date End Date Andrzej Downing MD [address] [place] [address] PCP - General Family Medicine 03/20/19 documented as of this encounter
--- OUTSIDE RECORDS SUMMARY | 2024-05-18 00:28 | External Medical Summary | Summary of Care ---
Author Name Unknown Organization [facility] Address [address] [place] [address] Phone [phone] Care Team Providers Care Project Superintendent Name Role Phone Andrzej Downing MD Primary Care Provider [phone] Reason for Visit * Reason Comments Pulmonary Function Test Encounter Details Date Type Department Care Team (Latest Contact Info) Description 04/13/2024 2:00 PM EST PulmDiagnostic Pulmonary Function Lab, [address] [id number], Pft [address] [place] [address] PHT (pulmonary hypertension) ([facility])* Allergies Active Allergy Reactions Criticality Noted Date [...] failure managing provider or [employer]. 1 Each 05/12/20 18 Active Fluticasone Propionate 50 MCG/ACT Nasal Suspension (FLONASE)Indicat ions:Nasal polyp Administer 2 Sprays into each nostril daily. Use in morning 48 g 3 05/27/20 20 Active Additional Information Patient taking differently:2 [place] Each Nostril Daily(AM),Use in morning as needed, [...] with LV diastolic dysfunction, NYHA class 3 ([facility]) take 4 tablets by mouth [...] Respimat 2.5 MCG/ACT Inhalation Aerosol Solution (Tiotropium [place] Monohydrate)Aga cations:breathin g Inhale 2 Puffs by [...] allergic rhinitis due to pollen Administer 1 [place] into nostril in the morning and 1 [place] before bedtime. 30 mL 12 09/20/19 24 [...] empagliflozin (ex. 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 Six minute walk performed. SpO2 - 4 LPM of oxygen at rest 96% SpO2 - 4 LPM of oxygen while ambulating 87%. Pt walked 258 meters in 6 minutes. SpO2 - 6 LPM of oxygen while ambulating 90%. Pt walked 120 meters. documented in this encounter Plan of Treatment Upcoming Encounters Date Type Department Care Team (Late st Contact Info) Description 04/13/2024 4:30 PM EST Laboratory Outpatient Laboratory, [place] [address] [place] [address] [place] [address] [facility] [place] [address] Arrived 04/26/2024 1:20 PM EST Office Visit Family [facility] [address] [place] [address] Andrzej Downing MD [address] [place] [address] 04/30/2024 10:30 AM EST Office Visit Cardiology, [facility] [address] [facility] [place] [address] Aubree Jean PA-C [address] [place] [address] [place] [address] 05/04/2024 1:20 PM EST Office Visit Sleep Disorders [facility] [address] [facility] [place] [id number] Cathie Rothman DO [address] [place] [address] 05/18/2024 2:30 PM EST Home Visit [facility], [facility] [address] [place] [address] Susan Sutherland, RN [address] [place] [address] 05/24/2024 2:30 PM EST Nutrition Services Nutrition & Weight Management, [facility] [address] [place] [address] Louise Zarate RDN [address] [place] [address] 07/16/2024 2:30 PM EST Cardiac Studies Cardiac Studies, [facility] [address] [place] [address] Health Maintenance Due Date Last Done Comments [...] D LEVEL ONCE IN A LIFETIME-USE SMARTSET# [id number] Completed 09/23/2022, 09/03/2021, 08/30/2018, Additional history exists [...] and hypercapnia (HCC) Steroid-induced osteoporosis Other osteoporosis PHT (pulmonary hypertension) (HCC)- Primary Other chronic pulmonary heart diseases [...] Power of Attor ambreen? No Care Teams Project Superintendent Relationship Specialty Start Date End Date Andrzej Downing MD [address] [place] [address] PCP - General Family Medicine 03/20/19 documented as of this encounter
--- OUTSIDE RECORDS SUMMARY | 2024-05-18 00:28 | External Medical Summary ---
Author Name Unknown Address Unknown Organization K01:[facility] [place] - [address] [facility] [address] Laboratory Report Ordering Provider Test Date Status DRAKE PERALTA 04/13/2024 15:59:23 Final Observation Date Value Abnormality Reference (Units ) Status MYCODE SPECIMEN-SST 04/13/2024 15:59:23 Freezing of extracted DNA, whole blood and/or serum. Final Performing Location [facility] [place] - [address] [facility] [address]
--- OUTSIDE RECORDS SUMMARY | 2024-05-18 00:28 | External Medical Summary | Summary of Care ---
Author Name Unknown Organization [facility] Address [address] [place] [address] Phone [phone] Care Team Providers Care Fish Hatchery Supervisor Name Role Phone Andrzej Downing MD Primary Care Provider [phone] Reason for Referral * Precert (Diagnostic Medical) (Within 10 days (routine)) - Authorized Specialty Diagnoses / Procedures Referred By Contac t Referred To Contact Cardiac Studies Diagnoses Pulmonary hypertension (HCC) Procedures ECHO, COMPLETE (2D), TRANS-THORACIC Jose Dsouza MD [address] [place] [address] Phone: tel: fax: Referral ID Status Reason Start Date Expiration Date V isits Requested Visits Authorized [id number] Authorized Precert 04/13/2024 999 999 Reason for Visit * Reason Comments Follow Up Encounter Details Date Type Department Care Team (Late st Contact Info) Description 04/13/2024 3:30 PM EST Office Visit Pulmonary Medicine, [place] [address], [place] [id number] Jose Dsouza MD [address] [place] [address] Pulmonary hypertension (HCC)* Allergies Active Allergy Reactions [...] failure managing provider or [facility] Escrow Assistant. 1 Each 05/12/20 18 Active Fluticasone Propionate 50 MCG/ACT Nasal Suspension (FLONASE)Indicat ions:Nasal polyp Administer 2 Sprays into each nostril daily. Use in morning 48 g 3 05/27/20 20 Active Additional Information Patient taking differently:2 [place] Each Nostril Daily(AM),Use in morning as needed, [...] by mouth twice a day 240 Tablet 06/14/19 24 Active Ozempic (1 MG/DOSE) 4 MG/3ML Subcutaneous Solution Pen-injector (Semaglutide (1 MG/DOSE))Indicat ions:Type 2 diabetes mellitus with hemoglobin A1c goal of less than 7.0% ([facility]) INJECT 1MG UNDER THE SKIN ONCE WEEKLY 3 mL 5 06/14/19 24 Active Albuterol Sulfate HFA 108 (90 Base) MCG/ACT Inhalation Aerosol Solution INHALE 2 PUFFS BY MOUTH EVERY 4 HOURS NEEDED FOR COUGH, SHORTNESS OF BREATH OR WHEEZING. 18 g 07/02/19 24 Active Multivitamin Adult Oral Tablet [...] Respimat 2.5 MCG/ACT Inhalation Aerosol Solution (Tiotropium [place] Monohydrate)Aga cations:breathin g Inhale 2 Puffs by mouth in the morning. 4 g 3 09/14/19 24 Active OneTouch UltraSoft Lancets Use as directed 4 times a day as needed for Hyperglycemia (high sugar) or Hypoglycemia (low sugar). Use up to four times a day as directed 1 Each 09/19/19 24 Active OneTouch Verio In Vitro Strip (Glucose Blood) Use up to 4 times a day E11.9 100 Strip 09/19/19 24 Active Losartan Potassium 25 MG [...] allergic rhinitis due to pollen Administer 1 [place] into nostril in the morning and 1 [place] before bedtime. 30 mL 12 09/20/19 24 [...] empagliflozin (ex. 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 current use of systemic steroids 11/05/2011 07/02/2018 [...] 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 Not on file Not on file Not on file documented as of this encounter Last Filed Vital Signs Vital Sign Reading Time Taken Comments Blood Pressure 92/60 04/13/2024 3:03 PM EST Pulse 75 04/13/2024 3:03 PM EST Temperature 36.6 C (97.9 F) 04/13/2024 3:03 PM ES T Respiratory Rate - - Oxygen Saturation 96% 04/13/2024 3:03 PM EST 4 l Inhaled Oxygen Concentration - - Weight 98.9 kg (218 lb) 04/13/2024 3:03 PM EST Height - - Body Mass Index 31.28 02/07/2024 1:46 PM EDT documented in this encounter Functional Status * Are you [...] Dinorah Soto RN documented in this encounter Progress Notes * Jose Dsouza MD - 04/13/2024 3:30 PM EST Subjective Guero Pugh is a 53 year old male last seen by me in September 2023 for management of pulmonaryhypertension. Patient patient has pulmonary hypertension, group 2, 3 and 5. History of sarcoidosis currently off prednisone, history of blastomycosis and recent COVID pneumonitis Patient was admitted at [facility] for parainfluenza pneumonia in July of this year. HPI: Patient presents to Pulmonary Clinic by himself today. Currently at his baseline. Uses 4-6 L of oxygen with good compliance. After his pneumonia in July, he has returned to his baseline. Uses Breo and Spiriva once day, albuterol nebulizer on average once a day. No exacerbations, need for steroids or ED visits. Not on immunosuppression. Good compliance to diuretics weight has been stable. Has lost 20 lb in the past year due to exercise and dietary modifications. 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, major, recurrent, in remission (HCC) Gastroesophageal reflux disease without esophagitis Chronic cor pulmonale (HCC) Essential hypertension with goal blood pressure less than 130/80 History of 2019 novel coronavirus disease (COVID-19) Chronic respiratory failure with hypoxia and hypercapnia (HCC) Obesity hypoventilation syndrome (HCC) Hypertensive heart disease with chronic right-sided congestive heart failure (HCC) COPD, group C, by GOLD 2017 classification (HCC) Current Outpatient Medications Medication Sig Dispense Refill NEBULIZER COMPRESSOR MISC Use as directed 1 Each 1 NEBULIZER/TUBING/MOUTHPIECE KIT use with nebs 1 Kit 11 ASPIRIN 81 MG PO TABS 1 tablet by mouth daily Misc. Devices MISC Use as directed. BIPAP at night DIURETIC TITRATION PLAN If no improvement on day 3, contact heart failure managing provider or [facility] Esc[facility] Assistant. 1 Each 0 Fluticasone Propionate 50 MCG/ACT [...] for Allergies or Itching. 10 mL 1 oxygen IN GAS 2 LPM during rest, 3 LPM while ambulating, 4 LPM through Trilogy during sleep 1 Each 0 Montelukast Sodium 10 MG Oral Tablet (Singulair) take 1 tablet by mouth at bedtime 90 Tablet 3 metOLazone 2.5 MG Oral Tablet (Zaroxolyn) Take 2.5 mg daily for three days when weight increases 3 pounds in 24 hours or 5 pounds in one week. 30 Tablet 0 Digoxin 125 MCG Oral Tablet (Lanoxin) Take 1 Tablet by mouth in the morning. 90 Tablet 3 Folic Acid 1 MG Oral Tablet Take [...] Take 1 Tablet by mouth every morning. Breo Ellipta 200-25 MCG/ACT Inhalation Aerosol Powder Breath Activated (fluticasone furoate-vilanterol) INHALE 1 PUFF BY MOUTH AND INTO THE LUNGS EVERY MORNING 60 Blister Dosing Unit 6 guaiFENesin ER 600 MG Oral Tablet Extended Release 12 Hour (Mucinex) Take 1 Tablet by mouth 2 timesa day as needed for Cough. Sodium Chloride 7 % Inhalation Nebulization Solution (Hyper-Sven) Inhale 4 mL via nebulizer in the morning and 4 mL before bedtime. Spiriva Respimat 2.5 MCG/ACT Inhalation Aerosol Solution (Tiotropium [place] Monohydrate) Inhale 2 Puffs by mouth in the morning. 4 g 3 OneTouch UltraSoft Lancets Use as directed 4 times a day as needed for Hyperglycemia (high sugar) or Hypoglycemia (low sugar). Use up to four times a day as directed 1 Each 11 OneTouch Verio In Vitro Strip (Glucose Blood) Use up to 4 times a day E11.9 100 Strip 11 Losartan Potassium 25 MG Oral Tablet (Cozaar) Take 1 Tablet by mouth in the morning. 90 Tablet 3 Fluticasone Propionate 50 MCG/ACT Nasal Suspension (Flonase) Administer 2 Sprays into each nostril in the morning. 48 g 4 Azelastine HCl 0.1 % Nasal Solution (Astelin) Administer 1 [place] into nostril in the morning and 1 [place] before bedtime. 30 mL 12 Desloratadine 5 MG Oral Tablet Take 1 Tablet by mouth in the morning. 30 Tablet 5 Empagliflozin 25 MG Oral Tablet (Jardiance) TAKE 1 TABLET BY MOUTH ONCE DAILY 90 Tablet 3 Vitamin D3 1000 UNIT Oral Capsule Take 1 Capsule by mouth in the morning. Spironolactone 25 MG Oral Tablet (Aldactone) TAKE 1 TABLET BY MOUTH THREE TIMES A DAY 270 Tablet 3 FeroSul 325 (65 Fe) MG Oral Tablet (Ferrous Sulfate) TAKE 1 TABLET BY MOUTH ONCE DAILY WITH BREAKFAST 90 Tablet 1 Citalopram Hydrobromide 20 MG Oral Tablet (CeleXA) TAKE 1 TABLET BY MOUTH ONCE DAILY 90 Tablet 2 Tamsulosin HCl 0.4 MG Oral Capsule (Flomax) take 1 capsule by mouth once daily 90 Capsule 3 Rosuvastatin Calcium 5 MG Oral Tablet (Crestor) Take 1 Tablet by mouth daily. 90 Tablet 3 Omeprazole 20 MG Oral Capsule Delayed Release (PriLOSEC) TAKE 1 CAPSULE BY MOUTH EVERY MORNING BEFORE FIRST MEAL OF THE DAY 90 Capsule 3 metFORMIN HCl ER 500 MG Oral Tablet Extended Release 24 Hour (Glucophage XR) TAKE 2 TABLETS BY MOUTH ONCE DAILY 180 Tablet 2 Ipratropium-Albuterol 0.5-2.5 (3) MG/3ML Inhalation Solution (Duoneb) Inhale 3 mL via nebulizer every 6 hours as needed for Wheezing or Shortness of Breath (cough). 180 mL 5 Potassium Chloride Bety ER 20 MEQ Oral Tablet Extended Release TAKE 1 TABLET BY MOUTH TWICE A DAY 180 Tablet 1 Current Facility-Administered Medications Medication Dose Route Frequency Provider Last Rate Last Admin albuterol sulfate (PROVENTIL) (2.5 MG/3ML) 0.083% inhalation solution 2.5 mg 2.5 mg Nebulizer Q4H PRN Louise Corbett CRNP 2.5 mg at 01/11/20 0950 Albuterol Sulfate (Proventil) (2.5 MG/3ML) 0.083% inhalation solution 2.5 mg 2.5 mg Nebulizer Once PRN Review of patient's allergies indicates: Allergen Reactions Doxycycline Other (Please comment) Headache Review of Systems Constitutional ROS: No change in weight, No weakness, No fatigue and No fevers, sweats, or chills Pulmonary ROS: As per HPI Cardiovascular ROS: No chest pain, + dyspnea on exertion, No orthopnea, No paroxysmal nocturnal dyspnea, no edema Gastrointestinal ROS: No abdominal pain,No significant heartburn, Musculoskeletal/Extremities ROS: No pain, redness or swelling on the joints Neurologic ROS: Normal balance, No headaches, No seizures and No weakness Endocrine ROS: No heat intolerance, No cold intolerance Psychiatric ROS: No depression, No anxiety Allergy/Immunologic ROS: As per HPI Sleep: + sleep disorders All other systems negative BP 92/60 | Pulse 75 | Temp 36.6 C (97.9 F) (Tympanic) | Wt 98.9 kg (218 lb) | SpO2 96% Comment:4 l | BMI 31.28 kg/m | BSA 2.21 m Exam General: alert, healthy, no distress, well nourished, well developed Eyes: PERRLA, EOMI, Conjunctiva are pink and non-injected, sclera clear Oropharynx: no exudate, no erythema, lips, buccal mucosa, and tongue normal Heart: regular rate & rhythm, no murmurs, no gallops Lungs: chest symmetric with normal AP diameter, no chest deformities noted, no chest wall tenderness, lungs clear to auscultation, no wheeze, bilateral diffuse crackles Abdomen: abdomen soft, non-tender, non-distended Neurologic: alert & oriented x 3 with fluent speech, Skin: skin color, texture, turgor are normal, no rashes or significant lesions on visualized areas Diagnostics Latest Reference Range & Units 02/28/20 16:19 07/21/20 14:32 02/05/21 15:24 09/03/21 14:44 PRO BNP 0 - 299 pg/mL 31 BNP, NT-Pro <300 pg/mL 53 61 135 Latest Reference Range & Units 01/11/20 09:27 07/18/20 14:25 02/06/21 14:19 09/14/21 12:43 08/13/22 10:00 FEV1/FVC Actual Pre % 48 47 51 53 53 FVC Actual Pre L 1.96 2.42 2.30 2.08 2.33 FVC Actual Pre %Predict % 39 48 46 41 47 FEV1 Actual Pre L 0.95 1.14 1.18 1.10 1.24 FEV1 Actual Pre %Predict % 24 29 30 28 32 TLC(Pleth) Actual Pre L 5.08 TLC (Pleth) Actual Pre %Predict % 73 DLCO Uncorrect Actual Pre ml/min/mmHg 17.22 20.33 17.74 16.35 DLCO Uncorrect Actual Pre %Predict % 47 56 49 45 6 Minute walk test 04/13/24 4 96 87 0.5 5 258 m 08/13/22 4lpm 96 88 0.5 3.5 240 m 04/09/22 4lpm 97 88 0 4 162m 09/14/21 4lpm 95 90 106m/ 3 min 06/23/21 5l 128 m/ 3 min Date Oxygen SpO2 Pre SpO2 post Marty Pre Marty Post Total distance 02/06/21 4l cons 95 88 0.5 5 240 m 07/18/20 4lpm pul 95 89 1 4 240 m 03/05/20 4 lpm pul 96 89 0.5 4 219 m 01/11/2020 4 LPM pul 93% 88% 1 5.5 240 meters 05/08/19 4 LPM 98% 92% 0 5.5 411 meters 06/08/18 5 LPM pul 97% 91% 0.5 3 252 meters 08/16/17 5 LPM 96% 87% 1 4 201 05/20/17 2 LPM 94% 89% 0.5 4 45 meters 12/03/16 3 LPM 96% 89% 3 4.5 206 06/23/16 3 LPM 93% 90% 0.5 5 274 meters Echocardiogram from January 03, 2024 shows normal left ventricular ejection fraction. Right ventricular cavity is severely dilated with moderately reduced RV function. Right atrium is moderately enlarged, PASP of 64. Left atrium is normal. Grade 1 diastolic dysfunction. TR max velocity of 3.9 m/sec. Echocardiogram from July 2022 shows normal left ventricular ejection fraction P moderately reduced RV function. Severely dilated right ventricular cavity. Moderately enlarged right atrium. Estimated PASP of 53. Compared to prior study in August 2021 there is no significant change. TR max velocity of 3.5 meters per Echo from 09/03/21 shows normal LVEF, moderately dilated RV, Moderately reduced RV function, PASP of50, TR max velocity of 3.4 m/s. No change from prior Echocardiogram from October 2020 shows normal left ventricular ejection fraction. Right ventricular pressure and volume overload needed. Right ventricular systolic function is moderately reduced with moderate dilation of right ventricle. Estimated PASP of 50. TR max velocity of 3.3 m/sec ECHO 05/2020 Normal left ventricular ejection fraction. Right ventricle is moderately dilated with moderate reduction in systolic function. Estimated PASP noted to be 38-43. No significant change compared to echocardiogram from December 2019. TR max velocity of 3.0 m/sec Echocardiogram on 01/17/16 ([facility]) showed an EF of 60-65%, RV mod dilated, Taspse >1.5 (normal), unable to give PASP RHC 06/08/13 PA 69/22 mPAP 46 Wedge 26 CO - TD 9.67 Trish's 8.45 RHC 07/19/16 PA 48/21 Mean 34 Wedge 22 CO TD- 7.66 Ficks - 7.8 PVR 2.09 Wood units\\ Right heart catheterization from August 2020 shows PA pressure of 53/14, mean of 31. Wedge pressure of 9. PA sat of 73. Trish cardiac output of 6 L, index of 2.5 L. PVR of 2.6 nobles units. This was done on supplemental oxygen at 5 liters/minute. ASSESSMENT 1. Pulmonary hypertension, functional class 2, WHO group 2, 3 and 5, RV dysfunction and dilatation,stable 2. Pulmonary sarcoidosis off prednisone and methotrexate, stable PFTs 3. Chronic hypoxic respiratory failure on 4 -6 liters/minute of oxygen 4. Fluid overload state, resolved 5. COPD, gold class B, stable 6. Obstructive sleep apnea on BiPAP and nocturnal oxygen at 4 L , good compliance 7. Recurrent sinusitis, no exacerbation in past year 8. History of blastomycosis treated with amphotericin and itraconazole in 2014 9. COVID pneumonitis in 2020 Plan 1. Patient continues to be stable in terms of exercise capacity and echocardiogram although echocardiogram shows RV dysfunction. His last echo was performed post his admission for pneumonia. I would consider short interval follow-up with repeat echocardiogram and PFTs. We will consider right heart catheterization to see if patient qualifies for inhaled Tyvaso at next visit. 2. We also discussed about referral to lung transplant center for a 2nd opinion for management of his cardiac and pulmonary status. Patient will think about it 3. I would continue with Breo and Spiriva in addition to p.r.n. albuterol 4. Continue monitoring patient off immunosuppression 5. Continue current dose of diuretics including spironolactone, torsemide 80 mg twice daily and p.r.n metolazone 6. Patient encouraged to start a regular exercise program and continue on his weight loss Patient will be seen back in Pulmonary clinic in 3 months with PFTs and repeat echocardiogram, and was advised to contact me sooner with any questions, concerns or deteriorating symptoms. I spent a total of 55 minutes on the date of service in preparation, delivery, and documentation ofthe care provided to the patient, excluding any time spent on the performance of any procedure or separately billable services. Jose Dsouza MD This chart was completed in part utilizing [employer] Speech Voice Recognition Software. Randomword insertions, pronoun errors, and incomplete sentences are an occasional consequence of this system due to software limitations, and ambient noise. Any questions or concerns about the content, text, or information contained within the body of this dictation should be directly addressed to the provider for clarification. documented in this encounter Plan of Treatment Upcoming Encounters Date Type Department Care Team (Latest Contact Info) Description 04/13/2024 4:30 PM EST Laboratory Outpatient Laboratory, [place] [address] [facility] [place] [address] [place], Lab B1a [address] [facility] [place] [address] [employer] Other*[id number]; Pulmonary hypertension (HCC) 04/26/2024 1:20 PM EST Office Visit Family [facility] [address] [place] [id number] Andrzej Downing MD [address] [place] [address] 04/30/2024 10:30 AM EST Office Visit Cardiology, [facility] [address] [facility] [place] [address] Aubree Jean PA-C [address] [facility] [place] [address] 05/04/2024 1:20 PM EST Office Visit Sleep Disorders [facility] [address] [facility] [place] [phone] Cathie Rothman DO [address] [facility] [place] [address] 05/18/2024 2:30 PM EST Home Visit [facility], [facility] [address] [place] [address] Susan Sutherland, RN [address] [place] [address] 05/24/2024 2:30 PM EST Nutrition Services Nutrition & Weight Management, [facility] [address] [place] [address] Louise Zarate RDN [address] [place] [address] 07/16/2024 2:30 PM EST Cardiac Studies Cardiac Studies, [place] [facility] [address] [place] [id number] Pending Results Name Type Priority Associated Diagnoses Date /Time CBC WITH WBC DIFFERENTIAL Lab Routine Pulmonary hypertension (HCC) 04/13/2024 3:59 PM EST COMPREHENSIVE METABOLIC PANEL Lab Routine Pulmonary hypertension (HCC) 04/13/2024 3:59 PM EST BNP, NT-PRO Lab Routine Pulmonary hypertension (HCC) 04/13/2024 3:59 PM EST Scheduled Orders Name Type Priority Associated Diagnoses Orde r Schedule SPIROMETRY B/A BRONCHODILATOR Procedures Routine Pulmonary hypertension (HCC) Expected: 04/20/2024, Expires: 05/13/2025 LUNG VOLUMES (PLETHYSMOGRAPHY) Procedures Routine Pulmonary hypertension (HCC) Expected: 04/20/2024, Expires: 05/13/2025 DIFFUSION CAPACITY (DLCO) Procedures Routine Pulmonary hypertension (HCC) Expected: 04/20/2024, Expires: 05/13/2025 PULMONARY STRESS TESTING Procedures Routine Pulmonary hypertension (HCC) Expected: 04/13/2024, Expires: 05/13/2025 ECHO, COMPLETE (2D), TRANS-THORACIC Echocardiology Routine Pulmonary hypertension (HCC) Expected: 04/13/2024, Expires: 04/13/2025 CBC WITH WBC DIFFERENTIAL Lab Routine Pulmonary hypertension (HCC) Expected: 04/13/2024, Expires: 04/13/2025 COMPREHENSIVE METABOLIC PANEL Lab Routine Pulmonary hypertension (HCC) Expected: 04/13/2024, Expires: 04/13/2025 BNP, NT-PRO Lab Routine Pulmonary hypertension (HCC) Expected: 04/13/2024, Expires: 04/13/2025 Health Maintenance Due Date Last Done Comments [...] D LEVEL ONCE IN A LIFETIME-USE SMARTSET# [id number] Completed 09/23/2022, 09/03/2021, 08/30/2018, Additional history exists [...] and hypercapnia (HCC) Steroid-induced osteoporosis Other osteoporosis Pulmonary hypertension (HCC)- Primary Other chronic pulmonary heart diseases [employer] Other*[id number] Pulmonary hypertension (HCC) Other chronic pulmonary heart [...] Power of Attor ambreen? No Care Teams Fish Hatchery Supervisor Relationship Specialty Start Date End Date Andrzej Downing MD [address] [place] [address] PCP - General Family Medicine 03/20/19 documented as of this encounter
--- OUTSIDE RECORDS SUMMARY | 2024-05-18 00:28 | External Medical Summary | Summary of Care ---
Author Name Unknown Organization [facility] Address [address] [place] [address] Phone [phone] Care Team Providers Care Drum Sealer Name Role Phone Andrzej Downing MD Primary Care Provider [phone]- [phone] Reason for Visit * Reason Onset Date Comments Mycode Lab Reorder 04/17/2024 Encounter Details Date Type Department Care Team (Late st Contact Info) Description 04/17/2024 Orders Only Outcomes Research Department [address] [place] [address] Erin Thomas CHRA MyCode Research Other*[id number]* Allergies Active Allergy Reactions Criticality Noted Date Comments Doxycycline Other (Please comment) Low 07/25/2013 Headache documented as of this encounter (statuses as of 04/17/2024) Medications NEBULIZER COMPRESSOR MISCIndications: Shortness of breath,Wheezing, [...] failure managing provider or [facility] Banking Officer. 1 Each 05/12/20 18 Active Fluticasone Propionate 50 MCG/ACT Nasal Suspension (FLONASE)Indicat ions:Nasal polyp Administer 2 Sprays into each nostril daily. Use in morning 48 g 3 05/27/20 20 Active Additional Information Patient taking differently:2 [place] Each Nostril Daily(AM),Use in morning as needed, [...] with LV diastolic dysfunction, NYHA class 3 ([facility]) take 4 tablets by mouth twice a day 240 Tablet 11 06/14/19 24 Active Ozempic (1 MG/DOSE) 4 MG/3ML Subcutaneous Solution Pen-injector (Semaglutide (1 MG/DOSE))Indicat ions:Type 2 diabetes mellitus with hemoglobin A1c goal of less than 7.0% ([facility]) INJECT 1MG UNDER THE SKIN ONCE [...] Respimat 2.5 MCG/ACT Inhalation Aerosol Solution (Tiotropium [place] Monohydrate)Aga cations:breathin g Inhale 2 Puffs by [...] allergic rhinitis due to pollen Administer 1 [place] into nostril in the morning and 1 [place] before bedtime. 30 mL 12 09/20/19 24 [...] as of this encounter (statuses as of 04/17/2024) Active Problems Problem Noted Date Diagnosed Date [...] empagliflozin (ex. Jardiance) Remote Patient Monitoring Vendor: [employer] Device(s): Connected Scale Self - Management Plan [...] as of this encounter (statuses as of 04/17/2024) Resolved Problems Problem Noted Date Diagnosed Date [...] Paranasal sinus disease 07/19/201306/07 [facility] Other*[id number] 06/08/2013 07/13/2016 Overview (06/08/2013): Study Title: Genomic Markers for Patients with Cardiovascular Disease Project # [id number] Torch Straightener: Ariana Brady MD [phone] HTN, goal below 130/80 06/03/201302/25 Cholecystolithiasis 09/20/2012 07/02/19 19 Obesity, Class III, BMI 40-4 9.9 (morbid obesity) 12/23/2011 01/05/2017 shelter current use of systemic steroids 11/05/2011 07/02/2018 [...] as of this encounter (statuses as of 04/17/2024) Immunizations Name Administration Dates Next Due COVID-19 [...] 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 documented in this encounter Plan of Treatment Upcoming Encounters Date Type Department Care Team (Late st Contact Info) Description 04/26/2024 1:20 PM EST Office Visit [place] [address] [facility] [facility] [place] [address] Andrzej Downing MD [address] [facility] [place] [address] 04/30/2024 10:30 AM EST Office Visit Cardiology, [facility] [address] [facility] [place] [address] Aubree Jean PA-C [address] [place] [address] [place] [address] 05/04/2024 1:20 PM EST Office Visit Sleep Disorders Ctr [facility] 132 [facility] [place] [phone] Cathie Rothman DO [address] [facility] [place] [address] 05/18/2024 2:30 PM EST [facility] Visit [facility], [facility] [address] [facility] [place] [address] Susan Sutherland, RN [address] [facility] [place] [address] 05/24/2024 2:30 PM EST Nutrition Services Nutrition & Weight Management, [facility] [address] [facility] [place] [address] Louise Zarate RDN 132 [facility] [place] [address] 07/16/2024 2:30 PM EST Cardiac Studies Cardiac Studies, [facility] [address] [facility] [place] [address] Scheduled Orders Name Type Priority Associated Diagnoses Orde r Schedule MYCODE SUBSEQUENT ADULT Lab Routine MyCode Research Other*[id number] Every 6 Months for 2 Occurrences starting 04/17/2024 until 05/07/2025 Health Maintenance Due Date Last Done Comments [...] 04/13/2025 04/13/2024, 08/02/2024, 10/24/2023, Additional history exists O2 ASSESSMENT COMPLETED IN [...] D LEVEL ONCE IN A LIFETIME-USE SMARTSET# 61584 Completed 09/23/2022, 09/03/2021, 08/30/2018, Additional history exists [...] (HCC) Steroid-induced osteoporosis Other osteoporosis MyCode Research Other*[id number] Primary documented in this encounter Advance Directives * [...] Power of Attor ambreen? No Care Teams Drum Sealer Relationship Specialty Start Date End Date Andrzej Downing MD [address] [place] [address] PCP - General Family Medicine 03/20/19 documented as of this encounter
--- OUTSIDE RECORDS SUMMARY | 2024-05-18 00:28 | External Medical Summary ---
Author Name Unknown Address Unknown Organization K01:[facility] [address] [facility] [address] Laboratory Report Ordering Provider Test Date Status MIGDALIA BOSWELL 04/13/2024 15:59:23 Final Observation Date Value Abnormality Reference (Units ) Status WBC, Total 04/13/2024 15:59:23 9.76 4.00-10.80 (K/uL) Final RBC 04/13/2024 15:59:23 5.50 4.50-5.25 (M/uL) Final Hemoglobin 04/13/2024 15:59:23 15.6 14.0-16.8 (g/dL) Final HCT 04/13/2024 15:59:23 49.2 Above high normal 40.0-48.4 (%) Final MCV 04/13/2024 15:59:23 89.5 82.0-99.5 (fL) Final MCH 04/13/2024 15:59:23 28.4 27.0-34.0 (pg) Final MCHC 04/13/2024 15:59:23 31.7 32.0-36.0 (g/dL) Final RDW 04/13/2024 15:59:23 14.7 11.5-15.5 (%) Final Platelets 04/13/2024 15:59:23 373 140-400 (K/uL) Final MPV 04/13/2024 15:59:23 8.3 6.6-11.1 (fL) Final Nucleated erythrocytes/100 leukocytes [Ratio] in Blood by Automated count 04/13/2024 15:59:23 0 <=0 (/100 WBCs) Final Performing Location [facility] [address] [facility] [address] [facility] [address]
--- OUTSIDE RECORDS SUMMARY | 2024-05-18 00:28 | External Medical Summary ---
Author Name Unknown Address Unknown Organization K01:[facility]ORATORY [facility] - [address] [facility] [place] [address] Laboratory Report Ordering Provider Test Date Status YUNG BOSWELLMT 04/13/2024 15:59:23 Final Observation Date Value Abnormality Reference (Units ) Status SYNC LEUKOCYTES IN BLOOD BY AUTOMATED COUNT 04/13/2024 15:59:23 9.76 4.00-10.80 (K/uL) Final Segs 04/13/2024 15:59:23 74.2 40.0-75.0 (%) Final Lymphs % 04/13/2024 15:59:23 11.6 Below low normal 18.0-42.0 (%) Final Monos 04/13/2024 15:59:23 8.3 1.0-11.0 (%) Final Eosinophils 04/13/2024 15:59:23 5.2 0.0-6.0 (%) Final Basos 04/13/2024 15:59:23 0.4 0.0-2.0 (%) Final Immature Granulocyte, Percent 04/13/2024 15:59:23 0.3 0.0-2.0 (%) Final Absolute Segs 04/13/2024 15:59:23 7.24 1.80-7.70 (K/uL) Final Lymphs, absolute 04/13/2024 15:59:23 1.13 1.00-4.80 (K/ul) Final Monos, Abs 04/13/2024 15:59:23 0.81 0.00-1.10 (K/uL) Final Eos, Abs 04/13/2024 15:59:23 0.51 0.00-0.70 (K/uL) Final Basos, Abs 04/13/2024 15:59:23 0.04 0.00-0.20 (K/uL) Final Immature Granulocytes, Number 04/13/2024 15:59:23 0.03 0.00-0.20 (K/uL) Final Performing Location LAB[facility]ORY [facility] - [facility] [place] [address]
--- OUTSIDE RECORDS SUMMARY | 2024-05-18 00:28 | External Medical Summary ---
Author Name Unknown Address Unknown Organization K01:[facility] [place] [address] [facility] [address] Laboratory Report Ordering Provider Test Date Status DRAKE PERALTA 04/13/2024 15:59:23 Final Observation Date Value Abnormality Reference (Units ) Status MYCODE SPECIMEN-SST 04/13/2024 15:59:23 Freezing of extracted DNA, whole blood and/or serum. Final Performing Location [facility] [place] [address] [facility] [address]
--- OUTSIDE RECORDS SUMMARY | 2024-05-18 00:28 | External Medical Summary | Summary of Care ---
Author Name Unknown Organization [facility] Address [address] [place] [address] Phone [phone] Care Team Providers Care Liner Reroll Tender Name Role Phone Andrzej Downing MD Primary Care Provider [phone]- [phone] Encounter Details Date Type Department Care Team (Late st Contact Info) Description 04/12/2024 2:30 PM EST [facility] [address] [place] [address] Susan Sutherland, RN [address] [place] [address] Allergies Active Allergy Reactions Criticality Noted Date Comments Doxycycline Other (Please comment) Low 07/25/2013 Headache documented as of this encounter (statuses as of 04/12/2024) Medications Medication Sig Dispensed Refills Start Date [...] failure managing provider or [facility] Investigator Internal Affairs. 1 Each 05/12/2018 Active Fluticasone Propionate 50 MCG/ACT Nasal Suspension (FLONASE)Indicatio ns:Nasal polyp Administer 2 Sprays into each nostril daily. Use in morning 48 g 3 05/27/2020 Active Additional Information Patient taking differently:2 [place] Each Nostril Daily(AM),Use in morning as needed, Indications: allergies, Reported on 04/22/2022 Cromolyn Sodium 4 % Ophthalmic Solution (Crolom)Indication s:Seasonal allergic rhinitis due to pollen Instill 1 Drop into both eyes 4 times a day as needed for Allergies or Itching. 10 mL 1 09/12/2020 Active oxygen IN GASIndications:Sev ere obstructive sleep apnea,Pulmonary hypertension (HCC),Sarcoidosis of lung (HCC) 2 LPM during rest, 3 LPM while ambulating, 4 LPM through Trilogy during sleep 1 Each 07/21/2022 Active Montelukast Sodium 10 MG Oral Tablet (Singulair)Indicat ions:Increased nasal secretion take 1 tablet by mouth at bedtime 90 Tablet 3 11/03/2022 Active metOLazone 2.5 MG Oral Tablet (Zaroxolyn)Indicat ions:Hypertensive heart disease with chronic right-sided congestive heart failure (HCC) Take 2.5 mg daily for three days when weight increases 3 pounds in 24 hours or 5 pounds in one week. 30 Tablet 05/27/2023 Active Digoxin 125 MCG Oral Tablet (Lanoxin) Take 1 Tablet by mouth in the morning. 90 Tablet 3 06/09/2023 Active Folic Acid 1 MG Oral Tablet [...] Aerosol Powder Breath Activated (fluticasone furoate-vilanterol ) INHALE 1 PUFF BY MOUTH AND INTO THE LUNGS EVERY MORNING 60 Blister Dosing Unit 6 09/08/2023 Active guaiFENesin ER 600 MG Oral Tablet Extended Release 12 Hour (Mucinex) Take 1 Tablet by mouth 2 times a day as needed for Cough. Active Sodium Chloride 7 % Inhalation Nebulization Solution (Hyper-Sven) Inhale 4 mL via nebulizer in the morning and 4 mL before bedtime. 09/04/2023 Active Spiriva Respimat 2.5 MCG/ACT Inhalation Aerosol Solution (Tiotropium [place] Monohydrate)Indica tions:breathing Inhale 2 Puffs by mouth in the morning. 4 g 3 09/14/2023 Active OneTouch UltraSoft Lancets Use as directed 4 times a day as needed for Hyperglycemia (high sugar) or Hypoglycemia (low sugar). Use up to four times a day as directed 1 Each 11 09/19/2023 Active OneTouch Verio In Vitro Strip (Glucose Blood) Use up to 4 times a day E11.9 100 Strip 11 09/19/2023 Active Losartan Potassium 25 MG Oral Tablet (Cozaar)Indication s:Chronic right-sided heart failure (HCC),Essential hypertension with goal blood pressure less than 130/80 Take 1 Tablet by mouth in the morning. 90 Tablet 3 09/16/2023 Active Fluticasone Propionate 50 MCG/ACT Nasal Suspension (Flonase)Indicatio ns:Seasonal allergic rhinitis due to pollen Administer 2 Sprays into each nostril in the morning. 48 g 4 09/20/2023 Active Azelastine HCl 0.1 % Nasal Solution (Astelin)Indicatio ns:Seasonal allergic rhinitis due to pollen Administer 1 [place] into nostril in the morning and 1 [place] before bedtime. 30 mL 12 09/20/2023 Active Desloratadine 5 MG Oral TabletIndications: Shortness of breath,Chronic obstructive pulmonary disease with acute exacerbation (HCC),Pulmonary hypertension associated with sarcoidosis (HCC),Chronic respiratory failure with hypoxia and hypercapnia (HCC),Oxygen dependent,Seasonal allergic rhinitis due to pollen Take 1 Tablet by mouth in the morning. 30 Tablet 5 09/20/2023 Active Empagliflozin 25 MG Oral Tablet (Jardiance)Indicat ions:Type 2 diabetes mellitus with hemoglobin A1c goal of less than 7.0% (HCC) TAKE 1 TABLET BY MOUTH ONCE DAILY 90 Tablet 3 10/19/2023 Active Vitamin D3 1000 UNIT Oral Capsule Take 1 Capsule by mouth in the morning. Active Spironolactone 25 MG Oral Tablet (Aldactone) TAKE 1 TABLET BY MOUTH THREE TIMES A DAY 270 Tablet 3 12/15/2023 Active FeroSul 325 (65 Fe) MG Oral Tablet (Ferrous Sulfate)Indication s:Iron deficiency anemia secondary to inadequate dietary iron intake TAKE 1 TABLET BY MOUTH ONCE DAILY WITH BREAKFAST 90 Tablet 1 12/15/2023 Active Citalopram Hydrobromide 20 MG Oral Tablet (CeleXA)Indication s:Major depressive disorder TAKE 1 TABLET BY MOUTH ONCE DAILY 90 Tablet 2 12/16/2023 Active Tamsulosin HCl 0.4 MG Oral Capsule (Flomax) take 1 capsule by mouth once daily 90 Capsule 3 12/21/2023 Active Rosuvastatin Calcium 5 MG Oral Tablet (Crestor)Indicatio ns:Type 2 diabetes mellitus with hemoglobin A1c goal of less than 7.0% (HCC) Take 1 Tablet by mouth daily. 90 Tablet 3 01/09/2024 Active Omeprazole 20 MG Oral Capsule Delayed Release (PriLOSEC) TAKE 1 CAPSULE BY MOUTH EVERY MORNING BEFORE FIRST MEAL OF THE DAY 90 Capsule 3 01/13/2024 Active metFORMIN HCl ER 500 MG Oral Tablet Extended Release 24 Hour (Glucophage XR) TAKE 2 TABLETS BY MOUTH ONCE DAILY 180 Tablet 2 01/18/2024 Active Ipratropium-Albute rol 0.5-2.5 (3) MG/3ML Inhalation Solution (Duoneb)Indication s:Shortness of breath,Chronic obstructive pulmonary disease with acute exacerbation (HCC),Pulmonary hypertension associated with sarcoidosis (HCC),Chronic respiratory failure with hypoxia and hypercapnia (HCC),Oxygen dependent Inhale 3 mL via nebulizer every 6 hours as needed for Wheezing or Shortness of Breath (cough). 180 mL 5 01/26/2024 Active Potassium Chloride Bety ER 20 MEQ Oral Tablet Extended ReleaseIndications :Hypokalemia TAKE 1 TABLET BY MOUTH TWICE A DAY 180 Tablet 1 03/15/2024 Active Hospital, Clinic, or Other Facility Administered Medication Ordered Dose Route Frequency Start Date End Date Status albuterol sulfate (PROVENTIL) (2.5 MG/3ML) 0.083% inhalation solution 2.5 mgIndications:Pulmonary hypertension (HCC),Chronic right-sided heart failure (HCC),Sarcoidosis,Oxygen dependent 2.5 mg NEBULIZER Q4H PRN 06/03/2017 Active documented as of this encounter (statuses as of 04/12/2024) Active Problems Problem Noted Date Diagnosed Date COPD, group C, by GOLD 2017 classification 10/16 Overview: Per COPD GOLD Classification Obesity hypoventilation syndrome 09/30/2022 Hypertensive heart disease w ith chronic right-sided congestive heart failure 09/30/2022 Last Assessment & Plan: "RED FLAG" HF Symptoms: Leg Swelling (Examples: [...] empagliflozin (ex. Jardiance) Remote Patient Monitoring Vendor: [employer] Device(s): Connected Scale Self - Management Plan [...] failure with hypoxia and hyp ercapnia 02/24/2021 Last Assessment & Plan: On continuous o2 at 2L with rest [...] MTX: Jun 20, 2014 - 2,483 mg Last Assessment & Plan: No longer on methotrexate Continue to follow with pulmonary Congestive heart failure wit h LV diastolic dysfunction, NYHA class 3 01/16/2016 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 Last Assessment & Plan: Follows with [facility] Dexa scheduled 11/15 Chronic right-sided heart failure 09/07/2012 Severe obstructive sleep apnea 12/24/2011 Overview: 09/04/12 BIPAP 15/9, 6 LPM -- low 84%, mean 92.7%, <89% 5:12 mins, CIRILO 5.1 09/01/12 -- BIPAP auto 9-15 cwp 12/10/11 PSG -- AHI 91.5, significant hypoxemia [facility] Oxygen documented as of this encounter (statuses as of 04/12/2024) Resolved Problems Problem Noted Date Diagnosed Date [...] Paranasal sinus disease 07/19/201306/07 [employer] [facility] Other*[id number] 06/08/2013 07/13/2016 Overview: Study Title: Genomic Markers for Patients with Cardiovascular Disease Project # [id number] Director Of Dietary: Ariana Brady MD [phone] HTN, goal below 130/80 06/03/201302/25 Cholecystolithiasis 09/20/2012 07/02/19 19 Obesity, Class III, BMI 40-4 9.9 (morbid obesity) 12/23/2011 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 11/05/2011 07/02/2018 [...] as of this encounter (statuses as of 04/12/2024) Immunizations Name Administration Dates Next Due COVID-19 [...] Sign Reading Time Taken Comments Blood Pressure 110/68 04/12/2024 2:52 PM EST Pulse 80 04/12/2024 2:52 PM EST Temperature 36.3 C (97.3 F) 04/12/2024 2:52 PM ES T Respiratory Rate 18 04/12/2024 2:52 PM EST Oxygen Saturation 96% 04/12/2024 2:52 PM EST Inhaled Oxygen Concentration - - Weight 99.2 kg (218 lb 11.2 oz) 04/12/2024 2:52 PM EST Height - - Body Mass Index 31.38 02/07/2024 1:46 PM EDT documented in this [...] as of this encounter Progress Notes * Susan Sutherland RN - 04/12/2024 2:49 PM EST Current Concerns: Pt seen for return RNCM visit Pt reports he has been having episodes of aching from left knee to ankle but reports this is not new, has been going on for years States it is not so much painful but uncomfortable at times He has not spoke to his doctor about this, states he usually forgets because it doesn't seem to bad There is no redness, bruising, or edema of LLE States he will ask at his pcp appt if it is still bothering him then Reports breathing has been at baseline and weight have been stable Has f/u with pulmonology tomorrow Physical Exam: Physical Exam Constitutional: General: He is not in acute distress. Cardiovascular: Rate and Rhythm: Normal rate. Pulses: Normal pulses. Heart sounds: Normal heart sounds. Pulmonary: Effort: Pulmonary effort is normal. Breath sounds: Normal breath sounds. Abdominal: Palpations: Abdomen is soft. Skin: General: Skin is warm and dry. Neurological: Mental Status: He is alert and oriented to person, place, and time. Review of Systems: Review of Systems Constitutional: Negative. HENT: Positive for congestion (sinus congestion, chronic - yellow or green mucus sometimes expectorated). Eyes: Negative. Respiratory: Positive for shortness of breath (GALLARDO - at baseline). Cardiovascular: Negative. Gastrointestinal: Negative. Genitourinary: Negative. Musculoskeletal: Positive for arthralgias. Neurological: Negative. Psychiatric/Behavioral: Negative. Care Plan Goal Progress: Patient will achieve & maintain optimal fluid balance. (Progressing) Start: 02/29/24 Expected End: 07/06/24 Patient will have improved cardiac output. (Progressing) Start: 02/29/24 Expected End: 07/06/24 Patient will achieve & maintain effective breathing pattern. (Progressing) Start: 02/29/24 Expected End: 07/06/24 Orders Placed: No orders of the defined types were placed in this encounter. Medications Given: Care Gaps: Care Gaps Care gaps closed this contact:: Education;Medications;Plan of Care (POC) (04/12/24 1506) Type of education: Clinical/disease (04/12/24 1506) Type of medication care gap: Medication adherence (04/12/24 1506) Type of plan of care (POC) care gap: Adjustment of plan of care (POC) and/or Integrated Care Plan (ICP);Education and review of exacerbation plan (04/12/24 1506) documented in this encounter Plan of Treatment Upcoming Encounters Date Type Department Care Team (Late st Contact Info) Description 04/13/2024 2:00 PM EST PulmDiagnostic Pulmonary Function Lab, [place] [address] [place] [address] 1, Pft Room [address] [place] [address] 04/13/2024 3:30 PM EST Office Visit Pulmonary Medicine, [place] [address] [place] [address] Jose Dsouza MD [address] [place] [address] 04/26/2024 1:20 PM EST Office Visit [address] [address] Andrzej Downing MD [address] [place] [address] 04/30/2024 10:30 AM EST Office Visit Cardiology, [facility] 132 [facility] [place] [address] Aubree Jean PA-C [address] [place] [address] [place] [address] 05/04/2024 1:20 PM EST Office Visit [facility] Disorders Ctr [facility] 132 [facility] [place] [phone] Cathie Rothman DO 132 [facility] [place] [address] 05/18/2024 2:30 PM EST [facility] Visit [facility], [facility] 132 [facility] [place] [address] Susan Sutherland, RN [address] [facility] [place] [address] 05/24/2024 2:30 PM EST Nutrition Services Nutrition & Weight Management, [facility] 132 [facility] [place] [address] Louise Zarate RDN [address] [facility] [place] [address] Health Maintenance Due Date Last Done Comments [...] ASSESSMENT COMPLETED IN PAST YEAR FOR COPD 04/12/2025 04/12/2024 DXA Scan 11/15/2025 11/16/2023, 02/04, 01/08/2019, Additional history exists DTap/Tdap Vaccines (3 - Td or Tdap) 09/18/2028 09/18/2018, 09/11/2008 Lipid Panel 01/12/2029 01/13/2024, 03/07, 09/03/2021, Additional history exists Pneumococcal Vaccine: Pediatrics (0 to 5 Years) and At-Risk Patients (6 to 64 Years) (3 of 3 - PPSV23 or PCV20) 2034 05/20/2017, 04/19/2014, 04/14/2009 VITAMIN D LEVEL ONCE IN A LIFETIME-USE SMARTSET# 47141 Completed 09/23/2022, 09/03/2021, 08/30/2018, Additional history exists [...] Power of Attor ambreen? No Care Teams Liner Reroll Tender Relationship Specialty Start Date End Date Andrzej Downing MD [address] [place] [address] PCP - General Family Medicine 03/20/19 documented as of this encounter
--- OUTSIDE RECORDS SUMMARY | 2024-05-18 00:28 | External Medical Summary ---
Author Name Unknown Address Unknown Organization K01:LABORATORY [facility] [place] - [address] [facility] [place] [address] Laboratory Report Ordering Provider Test Date Status MIGDALIA BOSWELL 04/13/2024 15:59:23 Final Observation Date Value Abnormality Reference (Units ) Status BUN 04/13/2024 15:59:23 18 6-20 (mg/dL) Final Creatinine 04/13/2024 15:59:23 1.2 0.6-1.2 (mg/dL) Final Glomerular filtration rate/1.73 sq M.predicted [Volume Rate/Area] in Serum, Plasma or Blood by Creatinine-based formula (CKD-EPI) 04/13/2024 15:59:23 74 >=60 (mL/min) Final eGFR is calculated based on the CKD-EPI 2020 equation. Sodium 04/13/2024 15:59:23 135 135-146 (m mol/L) Final Potassium 04/13/2024 15:59:23 4.0 3.5-5.1 (m mol/L) Final Cl 04/13/2024 15:59:23 95 Below low normal 98- 107 (mmol/L) Final CO2 04/13/2024 15:59:23 27 22-32 (mmo l/L) Final Anion gap 04/13/2024 15:59:23 13 7-15 (mmol /L) Final Glucose 04/13/2024 15:59:23 89 70-120 (mg /dL) Final Albumin 04/13/2024 15:59:23 4.1 3.8-5.0 (g /dL) Final AST (Aspartate aminotransferase) 04/13/2024 15:59:23 17 10-50 (U/L) Fin al Alk Phos 04/13/2024 15:59:23 80 35-130 (U/ L) Final Bilirubin, Total 04/13/2024 15:59:23 0.7 <=1 .2 (mg/dL) Final Calcium 04/13/2024 15:59:23 9.8 8.4-10.2 ( mg/dL) Final Protein 04/13/2024 15:59:23 8.0 6.0-8.3 (g /dL) Final ALT (Alanine aminotransferase) 04/13/2024 15:59:23 17 10-50 (U/L) Rokcy bonilla Performing Location LABORATORY [facility] [place] - [facility] [address] [facility] [address]
--- OUTSIDE RECORDS SUMMARY | 2024-05-18 00:28 | External Medical Summary ---
Author Name Unknown Address Unknown Organization K01:[facility] [place] [address] [facility] [address] [place] [address] Laboratory Report Ordering Provider Test Date Status DRAKE PERALTA 04/13/2024 15:59:23 Final Observation Date Value Abnormality Reference (Units ) Status [employer] SPECIMEN-LAV 04/13/2024 15:59:23 Freezing of extracted DNA, whole blood and/or serum. Final Performing Location [facility] [place] [address] [place] [address]
--- OUTSIDE RECORDS SUMMARY | 2024-05-18 00:28 | External Medical Summary ---
Author Name Unknown Address Unknown Organization K01:[facility] [place] [facility] [place] [address] [place] [address] Laboratory Report Ordering Provider Test Date Status MIGDALIA BOSWELL 04/13/2024 15:59:23 Final Exclude Heart Failure: <300 pg/mL
Diagnose Heart Failure:
Age <50 yr: >450 pg/mL
50-75 yr: >900 pg/mL
>75 yr: >1800 pg/mL
GFR is 30-59 mL/min: >1200 pg/mL or Age- adjusted values
GFR <30 mL/min: do not use, not reliable

Prognostic threshold: 1000 pg/mL Observation Date Value Abnormality Reference (Units ) Status BNP, Pro-hormone 04/13/2024 15:59:23 73 <30 0 (pg/mL) Final Performing Location [facility] [place] [facility] [place] [address] [place] [address]
--- OUTSIDE RECORDS SUMMARY | 2024-05-18 00:28 | External Medical Summary | Summary of Care ---
Author Name Unknown Organization [facility] Address [address] [place] [address] Phone [phone] Care Team Providers Care Surgical Technology Instructor Name Role Phone Andrzej Downing MD Primary Care Provider [phone]- [phone] Encounter Details Date Type Department Care Team (Late st Contact Info) Description 04/12/2024 Population Health External Data Unspecified Department Allergies Active Allergy Reactions Criticality Noted Date Comments Doxycycline Other (Please comment) Low 07/25/2013 Headache documented as of this encounter (statuses as of 04/19/2024) Medications NEBULIZER COMPRESSOR MISCIndications: Shortness of breath,Wheezing, [...] 3, contact heart failure managing provider or [facility] at Home Food Checkers And Cashiers Supervisor. 1 Each 05/12/20 18 Active Fluticasone Propionate 50 MCG/ACT Nasal Suspension (FLONASE)Indicat ions:Nasal polyp Administer 2 Sprays into each nostril daily. Use in morning 48 g 3 05/27/20 20 Active Additional Information Patient taking differently:2 [place] Each Nostril Daily(AM),Use in morning as needed, [...] Respimat 2.5 MCG/ACT Inhalation Aerosol Solution (Tiotropium Mobile Monohydrate)Aga cations:breathin g Inhale 2 Puffs by [...] allergic rhinitis due to pollen Administer 1 [place] into nostril in the morning and 1 [place] before bedtime. 30 mL 12 09/20/19 24 [...] less than 7.0% ([facility]) TAKE 1 TABLET BY MOUTH ONCE DAILY [...] as of this encounter (statuses as of 04/19/2024) Active Problems Problem Noted Date Diagnosed Date [...] empagliflozin (ex. Jardiance) Remote Patient Monitoring Vendor: [employer] Device(s): Connected Scale Self - Management Plan [...] as of this encounter (statuses as of 04/19/2024) Resolved Problems Problem Noted Date Diagnosed Date [...] Paranasal sinus disease 07/19/201306/07 [employer] Other*[id number] 06/08/2013 07/13/2016 Overview (06/08/2013): Study Title: Genomic Markers for Patients with Cardiovascular Disease Project # [id number] Kitchen Steward: Ariana Brady MD [phone] HTN, goal below 130/80 06/03/201302/25 Cholecystolithiasis 09/20/2012 07/02/19 19 Obesity, Class III, BMI 40-4 9.9 (morbid obesity) 12/23/2011 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 11/05/2011 [...] as of this encounter (statuses as of 04/19/2024) Immunizations Name Administration Dates Next Due COVID-19 [...] Industry Job Start Date Job End Date [employer] Not on file Not on file Not [...] Description 04/26/2024 1:20 PM EST Office Visit [facility] [address] [place] [address] Andrzej Downing MD [address] [place] [address] 04/30/2024 10:30 AM EST Office Visit Cardiology, [facility] [address] [facility] [place] [address] Aubree Jean PA-C [address] [place] [address] [place] [address] 05/04/2024 1:20 PM EST Office Visit Sleep Disorders Ctr [facility] [address] [facility] [place] [phone] Cathie Rothman, DO [address] [place] [address] 05/18/2024 2:30 PM EST [facility] [address] [place] [address] Susan Sutherland RN [address] [place] [address] 05/24/2024 2:30 PM EST Nutrition Services Nutrition & Weight Management, [facility] [place] [address] Louise Zarate RDN [address] [place] [address] 07/16/2024 2:30 PM EST Cardiac Studies Cardiac Studies, [facility] [address] [facility] [place] [address] Health Maintenance Due Date Last Done Comments [...] 09/04, 09/23/2022, Additional history exists Albumin/Creatinine Ratio 09/19/202409/19/2 024, 03/30/2022, 06/02/2018 B-12 09/19/2024 09/20/2023, 04, 02/05/2021, Additional history exists Diabetic Eye Exam 10/12/2024 10/13/2023, , 10/14/2022, Additional history exists Diabetic Foot Exam 02/06/2025 01/02/2021, 11/08/2018 Postponed from 01/02/2022 (Patient Declined After Education) Zoster Vaccines (1 of 2) 02/06/2025 Pos tponed from 10/27/2019 (Patient Declined After Education) GFR 04/13/2025 04/13/2024, 02/2024, 10/24/2023, Additional history exists O2 ASSESSMENT COMPLETED [...] D LEVEL ONCE IN A LIFETIME-USE SMARTSET# 56460 Completed 09/23/2022, 09/03/2021, 08/30/2018, Additional history exists [...] Power of Attor ambreen? No Care Teams Surgical Technology Instructor Relationship Specialty Start Date End Date Andrzej Downing MD [address] [place] [facility] [place] [address] PCP - General Family Medicine 03/20/19 documented as of this encounter
--- OUTSIDE RECORDS SUMMARY | 2024-05-18 00:29 | External Medical Summary | Summary of Care ---
Author Name Unknown Organization [facility] Address [address] [place] [address] Phone [phone] Care Team Providers Care Java Mobile Developer Name Role Phone Andrzej Downing MD Primary Care Provider [phone]- [phone] Encounter Details Date Type Department Care Team (Late st Contact Info) Description 02/23/2024 Population Health External Data Unspecified Department Allergies Active Allergy Reactions Criticality Noted Date Comments Doxycycline Other (Please comment) Low 07/25/2013 Headache documented as of this encounter (statuses as of 02/27/2024) Medications Medication Sig Dispensed Refills Start Date [...] 3, contact heart failure managing provider or [facility] at Home Pit Hoist Operator. 1 Each 05/12/2018 Active Fluticasone Propionate 50 MCG/ACT Nasal Suspension (FLONASE)Indicatio ns:Nasal polyp Administer 2 Sprays into each nostril daily. Use in morning 48 g 3 05/27/2020 Active Additional Information Patient taking differently:2 [place] Each Nostril Daily(AM),Use in morning as needed, [...] a day 180 Tablet 1 12/15/2022 Active metOLazone 2.5 MG Oral Tablet (Zaroxolyn)Indicat [...] with LV diastolic dysfunction, NYHA class 3 ([facility]) take 4 tablets by mouth twice a day 240 Tablet 11 06/14/2023 Active Ozempic (1 MG/DOSE) 4 MG/3ML Subcutaneous Solution Pen-injector (Semaglutide (1 MG/DOSE))Indicatio ns:Type 2 diabetes mellitus with hemoglobin A1c goal of less than 7.0% ([facility]) INJECT 1MG UNDER THE SKIN ONCE WEEKLY [...] Respimat 2.5 MCG/ACT Inhalation Aerosol Solution (Tiotropium [place] Monohydrate)Indica tions:breathing Inhale 2 Puffs by mouth [...] allergic rhinitis due to pollen Administer 1 [place] into nostril in the morning and 1 [place] before bedtime. 30 mL 12 09/20/2023 Active [...] Breath (cough). 180 mL 5 01/26/2024 Active Hospital, Clinic, or Other Facility Administered Medication Ordered Dose Route Frequency Start Date End Date Status albuterol sulfate (PROVENTIL) (2.5 MG/3ML) 0.083% inhalation solution 2.5 mgIndications:Pulmonary hypertension (HCC),Chronic right-sided heart failure (HCC),Sarcoidosis,Oxygen dependent 2.5 mg NEBULIZER Q4H PRN 06/03/2017 Active documented as of this encounter (statuses as of 02/27/2024) Active Problems Problem Noted Date Diagnosed Date [...] empagliflozin (ex. Jardiance) Remote Patient Monitoring Vendor: [employer] Device(s): Connected Scale Self - Management Plan [...] as of this encounter (statuses as of 02/27/2024) Resolved Problems Problem Noted Date Diagnosed Date [...] Paranasal sinus disease 07/19/201306/07 [employer] Other*[id number] 06/08/2013 07/13/2016 Overview: Study Title: Genomic Markers for Patients with Cardiovascular Disease Project # [id number] Forklift Truck Mechanic: Ariana Brady MD [phone] HTN, goal below 130/80 06/03/201302/25 Cholecystolithiasis 09/20/2012 07/02/19 19 Obesity, Class III, BMI 40-4 9.9 (morbid obesity) 12/23/2011 01/05/2017 residential current use of systemic steroids 11/05/2011 07/02/2018 [...] as of this encounter (statuses as of 02/27/2024) Immunizations Name Administration Dates Next Due COVID-19 mRNA, LNP-s, No Pre serve, 2-Dose Series (Moderna) 08/08/2020,07/11/2020 PPD 08/29/2012,08/24/2011 Pneumococcal Conjugate Vacc, 13 Valent (Prevnar) 05/20/2017 Pneumococcal Polysaccharide PPV23 (Pneumovax) 04/19/2014,04/14/2009 Seasonal Influenza Virus Vac cine, Unspecified Formulation 02/28/2019,04/10/2018,05/20/2017,03/06,04/19/2014 Seasonal Influenza, PF, 6 M & above, IM , (FluLaval or Fluzone) 04/04/2023,03/12/2022,02/06/2021,03/05,02/28/2019,04/10/2018 Seasonal Influenza, Quadriva lent, No Preserve, IM 05/20/2017,04/21/2015 Seasonal Influenza, Trivalen t, (IIV3), with Preserv, (Fluzone) 04/19/2014,05/02/2013(Deferred: Patient Refused) TD, Preservative Free 09/18/2018 TDAP, Age 7 [...] Care Team (Late st Contact Info) Description 02/29/2024 4:00 PM EDT [facility] Visit [facility], [facility] [address] [place] [address] Susan Sutherland, RN [address] [place] [address] 04/13/2024 2:00 PM EST PulmDiagnostic Pulmonary Function Lab, [address] [address], Pft Room [facility] [place] [address] 04/13/2024 3:30 PM EST Office Visit Pulmonary Medicine, [address] [id number] Jose Dsouza MD [facility] [place] [address] 04/26/2024 1:20 PM EST Office Visit Family [facility] [address] [place] [phone] Andrzej Downing MD [address] [place] [address] 04/30/2024 10:30 AM EST Office Visit Cardiology, [facility] [address] [facility] [place] [address] Aubree Jean PA-C [address] [facility] [place] [address] 05/04/2024 1:20 PM EST Office Visit Sleep Disorders Ctr [facility] [address] [place] [phone] Cathie Rothman DO [address] [place] [address] 05/24/2024 2:30 PM [facility] Nutrition Services Nutrition & Weight Management, [facility] [address] [place] [address] Louise Zarate, YARELI [address] [place] [address] Health Maintenance Due Date Last Done Comments [...] Postponed from 01/02/2022 (Patient Declined After Education) O2 ASSESSMENT COMPLETED IN PAST YEAR FOR COPD 02/06/2025 02/07/2024 Zoster Vaccines (1 of 2) 02/06/2025 Pos tponed from 10/27/2019 (Patient Declined After Education) DXA Scan 11/15/2025 11/16/2023, 02/04, 01/08/2019, Additional history exists DTap/Tdap Vaccines (3 - Td or Tdap) 09/18/2028 09/18/2018, 09/11/2008 Lipid Panel 01/12/2029 01/13/2024, 03/07, 09/03/2021, Additional history exists Pneumococcal Vaccine: Pediatrics (0 to 5 Years) and At-Risk Patients (6 to 64 Years) (3 of 3 - PPSV23 or PCV20) 2034 05/20/2017, 04/19/2014, 04/14/2009 VITAMIN D LEVEL ONCE IN A LIFETIME-USE SMARTSET# [id number] Completed 09/23/2022, 09/03/2021, 08/30/2018, Additional history exists [...] Power of Attor ambreen? No Care Teams Java Mobile Developer Relationship Specialty Start Date End Date Andrzej Downing MD [address] [place] [address] PCP - General Family Medicine 03/20/19 documented as of this encounter
--- OUTSIDE RECORDS SUMMARY | 2024-05-18 00:29 | External Medical Summary | Summary of Care ---
Author Name Unknown Organization [facility] Address [address] [place] [address] Phone [phone] Care Team Providers Care Buck Presser Name Role Phone Tj Anderson MD Primary Care Provider +1- [phone] Reason for Visit * Reason Comments eRx-Medication Refill Encounter Details Date Type Department Care Team (Late st Contact Info) Description 03/13/2024 Refill [facility] [address] [place] [address] Tj Anderson MD [address] [place] [address] Hypokalemia Allergies Active Allergy Reactions Criticality Noted Date Comments Doxycycline Other (Please comment) Low 07/25/2013 Headache documented as of this encounter (statuses as of 03/15/2024) Medications Medication Sig Dispensed Refills Start Date [...] 3, contact heart failure managing provider or [facility] at Home [employer] Officer. 1 Each 8 Active Fluticasone Propionate 50 MCG/ACT Nasal Suspension (FLONASE)Indicati ons:Nasal polyp Administer 2 Sprays into each nostril daily. Use in morning 48 g 3 0 Active Additional Information Patient taking differently:2 [place] Each Nostril Daily(AM),Use in morning as needed, Indications: allergies, Reported on 04/22/2022 Cromolyn Sodium 4 % Ophthalmic Solution (Crolom)Indicatio ns:Seasonal allergic rhinitis due to pollen Instill 1 Drop into both eyes 4 times a day as needed for Allergies or Itching. 10 mL 1 1 Active oxygen IN GASIndications:[place] obstructive sleep apnea,Pulmonary hypertension (HCC),Sarcoidosis of lung (HCC) 2 LPM during rest, 3 LPM while ambulating, 4 LPM through Trilogy during sleep 1 Each 3 Active Montelukast Sodium 10 MG Oral Tablet (Singulair)Indica tions:Increased nasal secretion take 1 tablet by mouth at bedtime 90 Tablet 3 3 Active metOLazone 2.5 MG Oral Tablet (Zaroxolyn)Indica tions:Hypertensiv e heart disease with chronic right-sided congestive heart failure (HCC) Take 2.5 mg daily for three days when weight increases 3 pounds in 24 hours or 5 pounds in one week. 30 Tablet 3 Active Digoxin 125 MCG Oral Tablet (Lanoxin) Take 1 Tablet by mouth in the morning. 90 Tablet 3 4 Active Folic Acid 1 MG Oral [...] hemoglobin A1c goal of less than 7.0% ([facility]) INJECT 1MG UNDER THE SKIN [...] 60 Blister Dosing Unit 6 4 Active guaiFENesin ER 600 MG Oral Tablet Extended Release 12 Hour (Mucinex) Take 1 Tablet by mouth 2 times a day as needed for Cough. Active Sodium Chloride 7 % Inhalation Nebulization Solution (Hyper-Sven) Inhale 4 mL via nebulizer in the morning and 4 mL before bedtime. 4 Active Spiriva Respimat 2.5 MCG/ACT Inhalation Aerosol Solution (Tiotropium [place] Monohydrate)Indic ations:breathing Inhale 2 Puffs by mouth in the morning. 4 g 3 4 Active OneTouch UltraSoft Lancets Use as directed 4 times a day as needed for Hyperglycemia (high sugar) or Hypoglycemia (low sugar). Use up to four times a day as directed 1 Each 11 4 Active OneTouch Verio In Vitro Strip (Glucose Blood) Use up to 4 times a day E11.9 100 Strip 11 4 Active Losartan Potassium 25 MG Oral Tablet (Cozaar)Indicatio ns:Chronic right-sided heart failure (HCC),Essential hypertension with goal blood pressure less than 130/80 Take 1 Tablet by mouth in the morning. 90 Tablet 3 4 Active Fluticasone Propionate 50 MCG/ACT Nasal Suspension (Flonase)Indicati ons:Seasonal allergic rhinitis due to pollen Administer 2 Sprays into each nostril in the morning. 48 g 4 4 Active Azelastine HCl 0.1 % Nasal Solution (Astelin)Indicati ons:Seasonal allergic rhinitis due to pollen Administer 1 [place] into nostril in the morning and 1 [place] before bedtime. 30 mL 12 4 Active Desloratadine 5 MG Oral TabletIndications :Shortness of breath,Chronic obstructive pulmonary disease with acute exacerbation (HCC),Pulmonary hypertension associated with sarcoidosis (HCC),Chronic respiratory failure with hypoxia and hypercapnia (HCC),Oxygen dependent,Seasona l allergic rhinitis due to pollen Take 1 Tablet by mouth in the morning. 30 Tablet 5 4 Active Empagliflozin 25 MG Oral Tablet (Jardiance)Indica tions:Type 2 diabetes mellitus with hemoglobin A1c goal of less than 7.0% (HCC) TAKE 1 TABLET BY MOUTH ONCE DAILY 90 Tablet 3 4 Active Vitamin D3 1000 UNIT Oral Capsule Take 1 Capsule by mouth in the morning. Active Spironolactone 25 MG Oral Tablet (Aldactone) TAKE 1 TABLET BY MOUTH THREE TIMES A DAY 270 Tablet 3 4 Active FeroSul 325 (65 Fe) MG Oral Tablet (Ferrous Sulfate)Indicatio ns:Iron deficiency anemia secondary to inadequate dietary iron intake TAKE 1 TABLET BY MOUTH ONCE DAILY WITH BREAKFAST 90 Tablet 1 4 Active Citalopram Hydrobromide 20 MG Oral Tablet (CeleXA)Indicatio ns:Major depressive disorder TAKE 1 TABLET BY MOUTH ONCE DAILY 90 Tablet 2 4 Active Tamsulosin HCl 0.4 MG Oral Capsule (Flomax) take 1 capsule by mouth once daily 90 Capsule 3 4 Active Rosuvastatin Calcium 5 MG Oral Tablet (Crestor)Indicati ons:Type 2 diabetes mellitus with hemoglobin A1c goal of less than 7.0% (HCC) Take 1 Tablet by mouth daily. 90 Tablet 3 4 Active Omeprazole 20 MG Oral Capsule Delayed Release (PriLOSEC) TAKE 1 CAPSULE BY MOUTH EVERY MORNING BEFORE FIRST MEAL OF THE DAY 90 Capsule 3 4 Active metFORMIN HCl ER 500 MG Oral Tablet Extended Release 24 Hour (Glucophage XR) TAKE 2 TABLETS BY MOUTH ONCE DAILY 180 Tablet 2 4 Active Ipratropium-Albut floyd 0.5-2.5 (3) MG/3ML Inhalation Solution (Duoneb)Indicatio ns:Shortness of breath,Chronic obstructive pulmonary disease with acute exacerbation (HCC),Pulmonary hypertension associated with sarcoidosis (HCC),Chronic respiratory failure with hypoxia and hypercapnia (HCC),Oxygen dependent Inhale 3 mL via nebulizer every 6 hours as needed for Wheezing or Shortness of Breath (cough). 180 mL 5 4 Active Potassium Chloride Bety ER 20 MEQ Oral Tablet Extended ReleaseIndication s:Hypokalemia TAKE 1 TABLET BY MOUTH TWICE A DAY 180 Tablet 1 4 Active Potassium Chloride Bety ER 20 MEQ Oral Tablet Extended ReleaseIndication s:Hypokalemia take 1 tablet by mouth twice a day 180 Tablet 1 3 03/15/20 24 Discontinued Hospital, Clinic, or Other Facility Administered Medication Ordered Dose Route Frequency Start Date End Date Status albuterol sulfate (PROVENTIL) (2.5 MG/3ML) 0.083% inhalation solution 2.5 mgIndications:Pulmonary hypertension (HCC),Chronic right-sided heart failure (HCC),Sarcoidosis,Oxygen dependent 2.5 mg NEBULIZER Q4H PRN 06/03/2017 Active documented as of this encounter (statuses as of 03/15/2024) Active Problems Problem Noted Date Diagnosed Date [...] empagliflozin (ex. Jardiance) Remote Patient Monitoring Vendor: [employer] Device(s): Connected Scale Self - Management Plan [...] as of this encounter (statuses as of 03/15/2024) Resolved Problems Problem Noted Date Diagnosed Date [...] Paranasal sinus disease 07/19/201306/07 [employer] Other*[id number] 06/08/2013 07/13/2016 Overview: Study Title: Genomic Markers for Patients with Cardiovascular Disease Project # [id number] Program Director/Music Director: Ariana Brady MD [phone] HTN, goal below 130/80 06/03/201302/25 Cholecystolithiasis 09/20/2012 [...] as of this encounter (statuses as of 03/15/2024) Immunizations Name Administration Dates Next Due COVID-19 [...] encounter Miscellaneous Notes * Telephone Encounter - Tita Leroy [facility] - 03/15/2024 8:49 AM EDT Signed Prescriptions: Disp Refills Potassium Chloride Bety ER 20 MEQ Oral Tab*180 Ta*1 Sig: TAKE 1 TABLET BY MOUTH TWICE A DAYAuthorizing Provider: TJ ANDERSON User: TITA LEROY * Telephone Encounter - Interface, [facility] In[facility] - 03/14/2024 6:45 PM EDT Pending Prescriptions: Disp Refills Potassium Chloride Bety ER 20 MEQ Oral Tab*180 Ta*0 Sig: take 1tablet by mouth twice a day documented in this encounter Plan of Treatment Upcoming Encounters Date Type Department Care Team (Late st Contact Info) Description 04/12/2024 2:30 PM EST [facility] Visit [facility] [address] [facility] [place] [address] Susan Sutherland, RN [address] [facility] [place] [address] 04/13/2024 2:00 PM EST PulmDiagnostic Pulmonary Function Lab, [address] [address], Pft Room [facility] [place] [address] 04/13/2024 3:30 PM EST Office Visit Pulmonary Medicine, [place] [address] [place] [address] Jose Dsouza MD [address] [place] [address] 04/26/2024 1:20 PM EST Office Visit Family [facility] [address] [place] [phone] Tj Anderson MD [address] [place] [address] 04/30/2024 10:30 AM EST Office Visit Cardiology, [facility] 132 [facility] [place] [address] Aubree Jean PA-C [address] [place] [address] [place] [address] 05/04/2024 1:20 PM EST Office Visit Sleep Disorders [facility] [address] [facility] [place] [phone] Cathie Rothman DO [address] [place] [address] 05/24/2024 2:30 PM EST Nutrition Services Nutrition & Weight Management, [facility] [address] [place] [address] Louise Zarate, RDN [address] [place] [address] Health Maintenance Due Date Last Done Comments [...] ASSESSMENT COMPLETED IN PAST YEAR FOR COPD 02/28/2025 02/29/2024 DXA Scan 11/15/2025 11/16/2023, 02/04, 01/08/2019, Additional history exists DTap/Tdap Vaccines (3 - Td or Tdap) 09/18/2028 09/18/2018, 09/11/2008 Lipid Panel 01/12/2029 01/13/2024, 03/07, 09/03/2021, Additional history exists Pneumococcal Vaccine: Pediatrics (0 to 5 Years) and At-Risk Patients (6 to 64 Years) (3 of 3 - PPSV23 or PCV20) 2034 05/20/2017, 04/19/2014, 04/14/2009 VITAMIN D LEVEL ONCE IN A LIFETIME-USE SMARTSET# [id number] Completed 09/23/2022, 09/03/2021, 08/30/2018, Additional history exists HPV (Gardasil) Vaccine Aged Out No lo nger eligible based on patient's age to complete this topic Hepatitis B Vaccine Discontinued MENINGOCOCCAL (MENACTRA/MENVEO) Aged Out No longer eligible based on patient's age to complete this topic documented as of this encounter Medical Devices Not on filedocumented as of this encounter Visit Diagnoses Diagnosis Hypokalemia Hypopotassemia documented in this encounter Advance Directives * [...] Power of Attor ambreen? No Care Teams Buck Presser Relationship Specialty Start Date End Date Tj Anderson MD [address] [facility] [place] [address] PCP - General Family Medicine 03/20/19 documented as of this encounter
--- OUTSIDE RECORDS SUMMARY | 2024-05-18 00:29 | External Medical Summary | Summary of Care ---
Author Name Unknown Organization [facility] Address [address] [place] [address] Phone [phone] Care Team Providers Care School Bus Aide Name Role Phone Andrzej Downing MD Primary Care Provider +1- [phone] Reason for Visit * Reason Onset Date Comments Health Maintenance 04/10/2024 Encounter Details Date Type Department Care Team (Late st Contact Info) Description 04/10/2024 Telephone [facility] [address] [place] [address] Andrzej Downing MD [address] [place] [address] Health Maintenance Allergies Active Allergy Reactions Criticality Noted Date Comments Doxycycline Other (Please comment) Low 07/25/2013 Headache documented as of this encounter (statuses as of 04/10/2024) Medications Medication Sig Dispensed Refills Start Date [...] 3, contact heart failure managing provider or [facility] Babbitter. 1 Each 05/12/2018 Active Fluticasone Propionate 50 MCG/ACT Nasal Suspension (FLONASE)Indicatio ns:Nasal polyp Administer 2 Sprays into each nostril daily. Use in morning 48 g 3 05/27/2020 Active Additional Information Patient taking differently:2 [place] Each Nostril Daily(AM),Use in morning as needed, [...] diastolic dysfunction, NYHA class 3 ([facility]) take 4 tablets by mouth twice a day 240 Tablet 11 06/14/2023 Active Ozempic (1 MG/DOSE) 4 MG/3ML Subcutaneous Solution Pen-injector (Semaglutide (1 MG/DOSE))Indicatio ns:Type 2 diabetes mellitus with hemoglobin A1c goal of less than 7.0% ([facility]) INJECT 1MG UNDER THE SKIN ONCE [...] Respimat 2.5 MCG/ACT Inhalation Aerosol Solution (Tiotropium [place] Monohydrate)Indica tions:breathing Inhale 2 Puffs by mouth [...] allergic rhinitis due to pollen Administer 1 [place] into nostril in the morning and 1 [place] before bedtime. 30 mL 12 09/20/2023 Active [...] goal of less than 7.0% ([facility]) Take 1 Tablet by mouth daily. 90 [...] as of this encounter (statuses as of 04/10/2024) Active Problems Problem Noted Date Diagnosed Date [...] empagliflozin (ex. Jardiance) Remote Patient Monitoring Vendor: [employer] Device(s): Connected Scale Self - Management Plan [...] as of this encounter (statuses as of 04/10/2024) Resolved Problems Problem Noted Date Diagnosed Date [...] Paranasal sinus disease 07/19/201306/07 [employer] Other*[id number] 06/08/2013 07/13/2016 Overview: Study Title: Genomic Markers for Patients with Cardiovascular Disease Project # [id number] Riveter Hand: Ariana Brady MD [phone] HTN, goal below 130/80 06/03/201302/25 Cholecystolithiasis 09/20/2012 07/02/19 19 Obesity, Class III, BMI 40-4 9.9 (morbid obesity) 12/23/2011 01/05/2017 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 11/05/2011 07/02/2018 [...] as of this encounter (statuses as of 04/10/2024) Immunizations Name Administration Dates Next Due COVID-19 [...] encounter Miscellaneous Notes * Telephone Encounter - Madeline Kruger LPN - 04/10/2024 11:19 AM EST Care Gaps Comprehensive Care Outreach Last Office/Telemedicine Visit: 02/07/2024 (in office), 09/12/2020 (telemedicine) Next Office Visit: 04/26/2024 Hemoglobin AIC Results: Lab Results Component Value Date/Time HEMOGLOBIN A1C - [facility] 5.9 (H) 01/13/2024 03:10 PM HEMOGLOBIN A1C - [facility] 5.7 (H) 09/20/2023 02:45 PM HEMOGLOBIN A1C - [facility] 5.4 09/23/2022 04:02 PM HEMOGLOBIN A1C - [facility] 6.3 (H) 02/28/2020 04:19 PM HEMOGLOBIN A1C - [facility] 6.4 (H) 12/04/2019 12:53 PM HEMOGLOBIN A1C - [facility] 6.4 (H) 03/07/2019 05:00 PM BP Readings from Last 1 Encounters: 02/29/24 108/62 Reviewed Health Maintenance below: Health Maintenance Topic Date Due Alpha-1 Antitrypsin Never done Colorectal Cancer Screening Never done *BISPHONATE OR OTHER ACCEPTABLE MEDICATION NEEDED FOR OSTEOPOROSIS (REFER TO SMARTSET #1146) Never done DIG LEVEL FOR MEDICATION MONITORING YEARLY 09/02/2021 Depression Monitoring 10/01/2023 Influenza Vaccine (FLU shot) (1) 02/05/2024 COVID-19 Vaccine ( season) 2024 Diabetic Foot Exam 02/06/2025 (Originally 01/02/2022) Zoster Vaccines (1 of 2) 02/06/2025 (Originally 10/27/2019) HbA1c 07/15/2024 Albumin/Creatinine Ratio 09/19/2024 B-12 09/19/2024 Ov already scheduled nov colon Care Gap Outreach Action Taken: [employer] message sent documented in this encounter Plan of Treatment Upcoming Encounters Date Type Department Care Team (Late st Contact Info) Description 04/12/2024 2:30 PM EST Home Visit [place], [facility] [address] [facility] [place] [address] Susan Sutherland, RN 132 [facility] [place] [address] 04/13/2024 2:00 PM EST PulmDiagnostic Pulmonary Function Lab, [place] [address] [place] [address] 1, Pft Room [facility] [address] [place], [place] [id number] 04/13/2024 3:30 PM EST Office Visit Pulmonary Medicine, [place] [address] [place] [address] Jose Dsouza MD [address] [place] [address] 04/26/2024 1:20 PM EST Office Visit Family [facility] [address] [place] [phone] Andrzej Downing MD [address] [place] [address] 04/30/2024 10:30 AM EST Office Visit Cardiology, [facility] [address] [facility] [place] [address] Aubree Jean PA-C [address] [place], [place] [address] [address] 05/04/2024 1:20 PM EST Office Visit Sleep Disorders Ctr [facility] [address] [facility] [place] [phone] Cathie Rothman DO [address] [place] [address] 05/24/2024 2:30 PM [facility] Nutrition Services Nutrition & Weight Management, [facility] [address] [place] [address] Louise Zarate, RDN [address] [place] [address] Health Maintenance Due Date Last Done Comments [...] D LEVEL ONCE IN A LIFETIME-USE SMARTSET# [id number] Completed 09/23/2022, 09/03/2021, 08/30/2018, Additional history exists [...] Power of Attor ambreen? No Care Teams School Bus Aide Relationship Specialty Start Date End Date Andrzej Downing MD [address] [place] [address] PCP - General Family Medicine 03/20/19 documented as of this encounter
--- OUTSIDE RECORDS SUMMARY | 2024-05-18 00:29 | External Medical Summary | Summary of Care ---
Author Name Unknown Organization [facility] Address [address] [place] [address] Phone [phone] Care Team Providers Care Lumber Sorter Machine Name Role Phone Andrzej Downing MD Primary Care Provider +1- [phone] Encounter Details Date Type Department Care Team (Late st Contact Info) Description 02/29/2024 4:00 PM EDT Home Visit [facility] at [facility] [address] [place] [address] Susan Sutherland, RN [address] [place] [address] Arrived Allergies Active Allergy Reactions Criticality Noted Date Comments Doxycycline Other (Please comment) Low 07/25/2013 Headache documented as of this encounter (statuses as of 02/29/2024) Medications Medication Sig Dispensed Refills Start Date [...] failure managing provider or [facility] Physical Design Engineer. 1 Each 05/12/2018 Active Fluticasone Propionate 50 MCG/ACT Nasal Suspension (FLONASE)Indicatio ns:Nasal polyp Administer 2 Sprays into each nostril daily. Use in morning 48 g 3 05/27/2020 Active Additional Information Patient taking differently:2 [place] Each Nostril Daily(AM),Use in morning as needed, [...] hemoglobin A1c goal of less than 7.0% ([facility]) INJECT 1MG UNDER THE SKIN ONCE WEEKLY [...] Respimat 2.5 MCG/ACT Inhalation Aerosol Solution (Tiotropium [place] Monohydrate)Indica tions:breathing Inhale 2 Puffs by mouth [...] allergic rhinitis due to pollen Administer 1 [place] into nostril in the morning and 1 [place] before bedtime. 30 mL 12 09/20/2023 Active [...] hemoglobin A1c goal of less than 7.0% ([facility]) Take 1 Tablet by mouth daily. 90 [...] as of this encounter (statuses as of 02/29/2024) Active Problems Problem Noted Date Diagnosed Date [...] empagliflozin (ex. Jardiance) Remote Patient Monitoring Vendor: [employer] Device(s): Connected Scale Self - Management Plan [...] as of this encounter (statuses as of 02/29/2024) Resolved Problems Problem Noted Date Diagnosed Date [...] Paranasal sinus disease 07/19/201306/07 [employer] Other*[id number] 06/08/2013 07/13/2016 Overview: Study Title: Genomic Markers for Patients with Cardiovascular Disease Project # [id number] Reel Tender: Ariana Brady MD [phone] HTN, goal below 130/80 06/03/201302/25 Cholecystolithiasis 09/20/2012 [...] as of this encounter (statuses as of 02/29/2024) Immunizations Name Administration Dates Next Due COVID-19 [...] Sign Reading Time Taken Comments Blood Pressure 108/62 02/29/2024 2:27 PM EDT Pulse 72 02/29/2024 2:27 PM EDT Temperature 36.4 C (97.6 F) 02/29/2024 2 :27 PM EDT Respiratory Rate 18 02/29/2024 2:27 PM EDT Oxygen Saturation 93% 02/29/2024 2:2 7 PM EDT o2 on at 4 l/min via nc Inhaled Oxygen Concentration - - Weight 101.8 kg (224 lb 6.4 oz) 02/29/2024 2:27 PM EDT Height - - Body Mass Index 32.2 02/07/2024 1:46 PM EDT documented in this [...] Progress Notes * Susan Sutherland RN - 02/29/2024 2:10 PM EDT Current Concerns: Has Bodyport scale Weight has been stable between 224 - 227 lbs Fluid measuring between 63 - 67 (65 today) Reports breathing has been at baseline No increase in cough or wheezing No acute concerns at this time Blood sugar 92 today Physical Exam: Physical Exam Constitutional: General: He is not in acute distress. Cardiovascular: Rate and Rhythm: Normal rate and regular rhythm. Pulses: Normal pulses. Heart sounds: Normal heart sounds. Pulmonary: Effort: Pulmonary effort is normal. Breath sounds: Wheezing (upper lobes) present. Abdominal: Palpations: Abdomen is soft. Skin: General: Skin is warm and dry. Neurological: Mental Status: He is alert and oriented to person, place, and time. Review of Systems: Review of Systems Constitutional: Negative. HENT: Negative. Eyes: Negative. Respiratory: Positive for shortness of breath (GALLARDO - at baseline). Cardiovascular: Negative. Gastrointestinal: Negative. Genitourinary: Negative. Musculoskeletal: Positive for arthralgias. Skin: Negative. Neurological: Negative. Hematological: Negative. Psychiatric/Behavioral: Negative. Care Plan Goal Progress: Orders Placed: No orders of the defined types were placed in this encounter. Medications Given: Care Gaps: Care Gaps Care gaps closed this contact:: Education;Medications;Plan of Care (POC) (02/29/241431) Type of education: Clinical/disease (02/29/241431) Type of medication care gap: Medication adherence (02/29/241431) Type of plan of care (POC) care gap: Education and review of exacerbation plan;Creation of plan of care (POC) and/or Integrated Care Plan (ICP) (02/29/241431) documented in this encounter Plan of Treatment Upcoming Encounters Date Type Department Care Team (Late st Contact Info) Description 04/12/2024 2:30 PM EST Home Visit jak at [facility] 132 [facility] [place] [address] Susan Sutherland RN 132 [facility] [place] [address] 04/13/2024 2:00 PM EST PulmDiagnostic Pulmonary Function Lab, [address] [address] 1, Pft Room [facility]note 3] [place] [address] 04/13/2024 3:30 PM EST Office Visit Pulmonary Medicine, [place] [address] [place] [address] Jose Dsouza MD [facility][note 3] [place] [address] 04/26/2024 1:20 PM EST Office Visit [facility] [address] [place] [phone] Andrzej Downing MD [address] [place] [address] 04/30/2024 10:30 AM EST Office Visit Cardiology, [facility] 132 [facility] [place] [address] Aubree Jean PA-C [address] [place] [address] [place] [address] 05/04/2024 1:20 PM EST Office Visit Sleep Disorders Ctr [facility] [address] [facility] [place] [phone] Cathie Rothman DO [address] [place] [address] 05/24/2024 2:30 PM EST Nutrition Services Nutrition & Weight Management, [facility] [address] [facility] [place] [address] Louise Zarate RDN 132 [facility] [place] [address] Health Maintenance Due Date Last Done Comments [...] 02/06/2021, Additional history exists HbA1c 07/15/2024 01/13/2024, 0411/2023, 09/23/2022, Additional history exists Albumin/Creatinine Ratio 09/19/202409/19/2 024, 03/30/2022, 06/02/2018 B-12 09/19/2024 09/20/2023, 09/05, [...] D LEVEL ONCE IN A LIFETIME-USE SMARTSET# [id number] Completed 09/23/2022, 09/03/2021, 08/30/2018, Additional history exists [...] Power of Attor ambreen? No Care Teams Lumber Sorter Machine Relationship Specialty Start Date End Date And[facility]j [facility] [address] [facility] [address] PCP - General Family Medicine 03/20/19 documented as of this encounter
--- OUTSIDE RECORDS SUMMARY | 2024-05-18 00:29 | External Medical Summary | Summary of Care ---
Author Name Unknown Organization [facility] Address [address] [place] [address] Phone [phone] Care Team Providers Care Parts Cleaner Name Role Phone Andrzej Downing MD Primary Care Provider +1- [phone] Encounter Details Date Type Department Care Team (Late st Contact Info) Description 02/29/2024 4:00 PM EDT Home Visit [facility]ing at [facility] [address] [place] [address] Susan Sutherland, RN [address] [place] [address] Arrived Allergies Active Allergy Reactions Criticality Noted [...] failure managing provider or [facility] Talent Management Specialist. 1 Each 05/12/2018 Active Fluticasone Propionate 50 MCG/ACT Nasal Suspension (FLONASE)Indicatio ns:Nasal polyp Administer 2 Sprays into each nostril daily. Use in morning 48 g 3 05/27/2020 Active Additional Information Patient taking differently:2 [place] Each Nostril Daily(AM),Use in morning as needed, [...] Respimat 2.5 MCG/ACT Inhalation Aerosol Solution (Tiotropium [place] Monohydrate)Indica tions:breathing Inhale 2 Puffs by mouth [...] allergic rhinitis due to pollen Administer 1 [place] into nostril in the morning and 1 [place] before bedtime. 30 mL 12 09/20/2023 Active [...] of less than 7.0% ([facility]) Take 1 Tablet by mouth daily. 90 [...] empagliflozin (ex. 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 11/05/2011 [...] 2:30 PM EST Home Visit [facility] at [facility] 132 [facility] [place] [address] Susan Sutherland RN 132 [facility] [address] 04/13/2024 2:00 PM EST PulmDiagnostic Pulmonary Function Lab, [address] [address] 1, Pft Room [facility] [place] [place] [address] 04/13/2024 3:30 PM EST Office Visit Pulmonary Medicine, [place] [address] [place] [address] Jose Dsouza MD [facility] [place] [address] 04/26/2024 1:20 PM EST Office Visit [facility] [address] [place] [phone] Andrzej Downing MD [address] [place] [address] 04/30/2024 10:30 AM EST Office Visit Cardiology, [facility] 132 [facility] [place] [address] Aubree Jean PA-C [address] [place] [address] [place] [address] 05/04/2024 1:20 PM EST Office Visit Sleep Disorders Ctr [facility] [address] [facility] [place] [phone] Cathie Rothman DO [address] [place] [address] 05/24/2024 2:30 PM EST Nutrition Services Nutrition & Weight Management, [facility] [address] [facility] [place] [address] Louise Zarate RDN 132 [facility] [place] [address] Health Maintenance Due Date Last Done Comments [...] D LEVEL ONCE IN A LIFETIME-USE SMARTSET# [id number] Completed 09/23/2022, 09/03/2021, 08/30/2018, Additional history exists [...] Power of Attor ambreen? No Care Teams Parts Cleaner Relationship Specialty Start Date End Date And[facility]zej [facility] [address] [facility] [address] PCP - General Family Medicine 03/20/19 documented as of this encounter
--- OUTSIDE RECORDS SUMMARY | 2024-05-18 00:29 | External Medical Summary | Summary of Care ---
Author Name Unknown Organization [facility] Address [address] [place] [address] Phone [phone] Care Team Providers Care Direct Care Specialist Name Role Phone Andrzej Downing MD Primary Care Provider +1- [phone] Encounter Details Date Type Department Care Team (Late st Contact Info) Description 03/20/2024 Population Health External Data Unspecified Department Allergies Active Allergy Reactions Criticality Noted Date Comments Doxycycline Other (Please comment) Low 07/25/2013 Headache documented as of this encounter (statuses as of 03/21/2024) Medications Medication Sig Dispensed Refills Start Date [...] 3, contact heart failure managing provider or [facility] Extrusion Engineer. 1 Each 05/12/2018 Active Fluticasone Propionate 50 MCG/ACT Nasal Suspension (FLONASE)Indicatio ns:Nasal polyp Administer 2 Sprays into each nostril daily. Use in morning 48 g 3 05/27/2020 Active Additional Information Patient taking differently:2 [place] Each Nostril Daily(AM),Use in morning as needed, [...] LV diastolic dysfunction, NYHA class 3 ([facility]) take 4 tablets by mouth twice [...] Respimat 2.5 MCG/ACT Inhalation Aerosol Solution (Tiotropium [place] Monohydrate)Indica tions:breathing Inhale 2 Puffs by mouth [...] allergic rhinitis due to pollen Administer 1 [place] into nostril in the morning and 1 [place] before bedtime. 30 mL 12 09/20/2023 Active [...] less than 7.0% ([facility]) Take 1 Tablet by mouth daily. [...] as of this encounter (statuses as of 03/21/2024) Active Problems Problem Noted Date Diagnosed Date [...] empagliflozin (ex. Jardiance) Remote Patient Monitoring Vendor: [employer] Device(s): Connected Scale Self - Management Plan [...] as of this encounter (statuses as of 03/21/2024) Resolved Problems Problem Noted Date Diagnosed Date [...] Paranasal sinus disease 07/19/201306/07 [employer] Other*[id number] 06/08/2013 07/13/2016 Overview: Study Title: Genomic Markers for Patients with Cardiovascular Disease Project # [id number] Asbestos Removal Supervisor: Ariana Brady MD [phone] HTN, goal below 130/80 06/03/201302/25 Cholecystolithiasis 09/20/2012 07/02/19 19 Obesity, Class III, BMI 40-4 9.9 (morbid obesity) 12/23/2011 01/05/2017 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 11/05/2011 07/02/2018 [...] as of this encounter (statuses as of 03/21/2024) Immunizations Name Administration Dates Next Due COVID-19 [...] Upcoming Encounters Date Type Department Care Team (Janny Contact Info) Description 04/12/2024 2:30 PM EST [facility], [facility] [address] [place] [address] Susan Sutherland, RN [address] [place] [address] 04/13/2024 2:00 PM EST PulmDiagnostic Pulmonary Function Lab, [place] [address] [place] [address] 1, Pft Room [address] [place] [address] 04/13/2024 3:30 PM EST Office Visit Pulmonary Medicine, [place] [address] [place], [place] [phone] Jose Dsouza MD [address] [place] [address] 04/26/2024 1:20 PM EST Office Visit Family [facility] [address] [place] [phone] Andrzej Downing MD [address] [place] [address] 04/30/2024 10:30 AM EST Office Visit [facility], [facility] 132 [facility] [place] [address] Aubree Jean PA-C [address] [facility] [place] [address] 05/04/2024 1:20 PM EST Office Visit Sleep Disorders Ctr [facility] 132 [facility] [place] [phone] Cathie Rothman DO [address] [place] [address] 05/24/2024 2:30 PM EST Nutrition Services Nutrition & Weight Management, [facility] [address] [place] [address] Louise Zarate RDN [address] [place] [address] Health Maintenance Due Date Last Done Comments [...] D LEVEL ONCE IN A LIFETIME-USE SMARTSET# [id number] Completed 09/23/2022, 09/03/2021, 08/30/2018, Additional history exists [...] Power of Attor ambreen? No Care Teams Direct Care Specialist Relationship Specialty Start Date End Date Andrzej Downing MD [address] [facility] [place] [address] PCP - General Family Medicine 03/20/19 documented as of this encounter
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
--- OUTSIDE RECORDS SUMMARY | 2024-05-18 00:29 | External Medical Summary | Summary of Care ---
Author Name Unknown Organization [facility] Address [address] [place] [address] Phone [phone] Care Team Providers Care Master [place] Name Role Phone Andrzej Downing MD Primary Care Provider [phone]- [phone] Encounter Details Date Type Department Care Team (Latest Contact Info) Description 01/09/2024 Medication Management Juan [facility] [address] [place], [place] [id number] [facility] [address] [place] [address] Referred for management of medication therapy* Allergies Active Allergy Reactions Criticality Noted Date Comments Doxycycline Other (Please comment) Low 07/25/2013 Headache documented as of this encounter (statuses as of 03/01/2024) Medications Medication Sig Dispensed Refills Start Date [...] failure managing provider or [facility] Kit Planner. 1 Each 8 Active Fluticasone Propionate 50 MCG/ACT Nasal Suspension (FLONASE)Indicati ons:Nasal polyp Administer 2 Sprays into each nostril daily. Use in morning 48 g 3 0 Active Additional Information Patient taking differently:2 [place] Each Nostril Daily(AM),Use in morning as needed, [...] a day 180 Tablet 1 3 Active metOLazone 2.5 MG [...] Respimat 2.5 MCG/ACT Inhalation Aerosol Solution (Tiotropium [place] Monohydrate)Indic ations:breathing Inhale 2 Puffs by mouth [...] allergic rhinitis due to pollen Administer 1 [place] into nostril in the morning and 1 [place] before bedtime. 30 mL 12 4 Active [...] once daily 90 Capsule 3 4 Active Omeprazole 20 MG Oral Capsule Delayed Release (PriLOSEC) take 1 capsule by mouth every morning before FIRST MEAL OF THE DAY 90 Capsule 2 3 01/13/20 24 Discontinued Ipratropium-Albut floyd 0.5-2.5 (3) MG/3ML Inhalation Solution (Duoneb)Indicatio ns:Shortness of breath,Chronic obstructive pulmonary disease with acute exacerbation (HCC),Pulmonary hypertension associated with sarcoidosis (HCC),Chronic respiratory failure with hypoxia and hypercapnia (HCC),Oxygen dependent Inhale 3 mL via nebulizer every 6 hours as needed for Wheezing or Shortness of Breath (cough). 21 mL 1 4 01/19/20 24 Discontinued metFORMIN HCl ER 500 MG Oral Tablet Extended Release 24 Hour (Glucophage XR) TAKE 2 TABLETS BY MOUTH ONCE DAILY 180 Tablet 4 01/18/20 24 Discontinued Hospital, Clinic, or Other Facility Administered Medication Ordered Dose Route Frequency Start Date End Date Status albuterol sulfate (PROVENTIL) (2.5 MG/3ML) 0.083% inhalation solution 2.5 mgIndications:Pulmonary hypertension (HCC),Chronic right-sided heart failure (HCC),Sarcoidosis,Oxygen dependent 2.5 mg NEBULIZER Q4H PRN 06/03/2017 Active documented as of this encounter (statuses as of 03/01/2024) Active Problems Problem Noted Date Diagnosed Date [...] empagliflozin (ex. Jardiance) Remote Patient Monitoring Vendor: Vuzit Device(s): Connected Scale Self - Management Plan [...] as of this encounter (statuses as of 03/01/2024) Resolved Problems Problem Noted Date Diagnosed Date [...] Paranasal sinus disease 07/19/201306/07 [employer] Other*[id number] 06/08/2013 07/13/2016 Overview: Study Title: Genomic Markers for Patients with Cardiovascular Disease Project # [id number] Flight Dispatcher: Ariana Brady MD [phone] HTN, goal below 130/80 06/03/201302/25 Cholecystolithiasis 09/20/2012 [...] as of this encounter (statuses as of 03/01/2024) Immunizations Name Administration Dates Next Due COVID-19 [...] as of this encounter Progress Notes * Melanie Chappell RPh - 01/09/2024 12:46 PM EDT Guero Pugh is a 53 year old male. TMR Interventions Incomplete Encounter MTPs No medication therapy recommendations to display Complete Encounter MTPs Referred for management of medication therapy Rationale: Untreated condition - Needs additional medication therapy - Indication Recommendation: Start Medication - Crestor 5 MG Tabs Status: Accepted per Provider Note: Patient contacted to discuss statin use in patients with diabetes. Per chart review and patient report, patient has never been prescribed statin therapy in past. Spent time counseling patient that it is recommended that all patients with diabetes be prescribed statin therapy regardless of cholesterol levels to reduce cardiovascular risks. After discussion, patient was agreeable to sending recommendation to provider. Provider approved. Assessment & Plan Indication, effectiveness, safety and convenience of his medications were reviewed today. The patient's medical conditions were assessed, evaluated, and deemed meeting goals of drug therapy, with thefollowing exceptions. Additional Notes: Patient contacted for statin use in diabetic patients. Patient has not been prescribed statin therapy in past. Last lipid panel is slightly elevated and current ASCVD risk is 9.2%. Discussed importance of statin therapy and patient was agreeable to sending recommendation to provider. Melanie Chappell RPh 01/09/2024, 1:43 PM documented in this encounter Plan of Treatment Upcoming Encounters Date Type Department Care Team (Late st Contact Info) Description 04/12/2024 2:30 PM EST [facility] [address] [place] [address] Susan Sutherland RN [address] [place] [address] 04/13/2024 2:00 PM EST PulmDiagnostic Pulmonary Function Lab, [address] [address] [address], [address] [place] [address] 04/13/2024 3:30 PM EST Office Visit Pulmonary Medicine, [place] [address] [place] [address] Jose Dsouza MD [address] [place] [address] 04/26/2024 1:20 PM EST Office Visit Family [facility] [address] [place] [address] Andrzej Downing MD [address] [place] [address] 04/30/2024 10:30 AM EST Office Visit Cardiology, [facility] [address] [facility] [place] [address] Aubree Jean PA-C [address] [place] [address] 05/04/2024 1:20 PM EST Office Visit Sleep Disorders [facility] [address] [facility] [place] [phone] Cathie Rothman DO [facility] [place] [address] 05/24/2024 2:30 PM EST Nutrition Services Nutrition & Weight Management, [facility] [address] [place] [address] Louise Zarate RDN [address] [place] [address] Health Maintenance Due Date Last Done Comments [...] D LEVEL ONCE IN A LIFETIME-USE SMARTSET# [id number] Completed 09/23/2022, 09/03/2021, 08/30/2018, Additional history exists [...] medications documented in this encounter Advance Directives * [...] Power of Attor ambreen? No Care Teams Master [place] Relationship Specialty Start Date End Date Andrzej Downing MD [address] [place] [address] PCP - General Family Medicine 03/20/19 documented as of this encounter
--- OUTSIDE RECORDS SUMMARY | 2024-05-18 00:30 | External Medical Summary | Summary of Care ---
Author Name Unknown Organization [facility] Address [address] [place] [address] Phone [phone] Care Team Providers Care Ceo And Founder Name Role Phone Andrzej Downing MD Primary Care Provider +1- [phone] Reason for Visit * Reason Onset Date Comments [facility]: Maintenance 01/31/2024 Encounter Details Date Type Department Care Team (Late st Contact Info) Description 01/31/2024 Telephone [facility], [facility] [address] [facility] [place] [address] Susan Sutherland RN [address] [facility] [place] [address] [facility]: Maintenance Allergies Active Allergy Reactions Criticality Noted Date Comments Doxycycline Other (Please comment) Low 07/25/2013 Headache documented as of this encounter (statuses as of 01/31/2024) Medications Medication Sig Dispensed Refills Start Date [...] failure managing provider or [facility] Wildlife Ecology Professor. 1 Each 05/12/2018 Active Fluticasone Propionate 50 MCG/ACT Nasal Suspension (FLONASE)Indicatio ns:Nasal polyp Administer 2 Sprays into each nostril daily. Use in morning 48 g 3 05/27/2020 Active Additional Information Patient taking differently:2 [place] Each Nostril Daily(AM),Use in morning as needed, [...] hemoglobin A1c goal of less than 7.0% ([facility]) INJECT 1MG UNDER THE SKIN [...] Respimat 2.5 MCG/ACT Inhalation Aerosol Solution (Tiotropium [place] Monohydrate)Indica tions:breathing Inhale 2 Puffs by mouth [...] allergic rhinitis due to pollen Administer 1 [place] into nostril in the morning and 1 [place] before bedtime. 30 mL 12 09/20/2023 Active [...] hemoglobin A1c goal of less than 7.0% ([facility]) Take 1 Tablet by mouth [...] as of this encounter (statuses as of 01/31/2024) Active Problems Problem Noted Date Diagnosed Date [...] empagliflozin (ex. Jardiance) Remote Patient Monitoring Vendor: ADmantX Device(s): Connected Scale Self - Management Plan [...] as of this encounter (statuses as of 01/31/2024) Resolved Problems Problem Noted Date Diagnosed Date [...] Paranasal sinus disease 07/19/201306/07 [employer] Other*[id number] 06/08/2013 07/13/2016 Overview: Study Title: Genomic Markers for Patients with Cardiovascular Disease Project # [id number] [place]ier Helper: Ariana Brady MD [phone] HTN, goal below 130/80 06/03/201302/25 Cholecystolithiasis 09/20/2012 [...] as of this encounter (statuses as of 01/31/2024) Immunizations Name Administration Dates Next Due COVID-19 [...] encounter Miscellaneous Notes * Telephone Encounter - Nick Mayo OSA - 01/31/2024 2:34 PM EDT Called patient he is aware of date and time for the appt. He confirmed the appt * Telephone Encounter - Nick Mayo OSA - 01/31/2024 2:32 PM EDT Patient has been rescheduled on: RETURN CARDIOLOGY at 10:30 AM (30 min)Arrive by 10:15 AM Tuesday April 30, 2024 Appointment Provider:Aubree Jean PA-C in CARDIOLOGY [facility] * Telephone Encounter - Susan Sutherland RN - 01/31/2024 2:28 PM EDT Pt's cardiology appt was canceled. Can you please assist in getting this rescheduled? Thank you! documented in this encounter Plan of Treatment Upcoming Encounters Date Type Department Care Team (Late st Contact Info) Description 02/15/2024 2:30 PM EDT Nutrition Services Nutrition & Weight Management, [facility] [address] [facility] [place] [address] Louise Zarate RDN [address] [place] [address] 02/23/2024 2:00 PM EDT Office Visit Sleep Disorders Ctr [facility] 132 [facility] [place] [address] Jyotsna Shah CRNP 132 [facility] [place] [address] 02/29/2024 4:00 PM EDT [facility] Visit [facility], [facility] [address] [facility] [place] [address] Susan Sutherland RN 132 [facility] [place] [address] 04/13/2024 2:00 PM EST PulmDiagnostic Pulmonary Function Lab, [address] [address] 1, Pft Room [address] [place] [address] 04/13/2024 3:30 PM EST Office Visit Pulmonary Medicine, [place] [address] [place] [address] Jose Dsouza MD [address] [place] [address] 04/26/2024 1:20 PM EST Office Visit Family [facility] [address] [place] [address] Andrzej Downing MD [address] [place] [address] 04/30/2024 10:30 AM EST Office Visit Cardiology, [facility] [place] [address] Aubree Jean PA-C [address] [place] [address] [place] [address] Health Maintenance Due Date Last Done Comments Alpha-1 Antitrypsin 10/27/1987 Hepatitis B Vaccine (1 of 3 - 19+ 3-dose series) [...] COVID-19 Vaccine ( season) 2023 08/08/2020, 07/11/2020 Depression Monitoring 10/01/2023 09/30/2022 Influenza Vaccine (FLU shot) (#1) 2024 04/04/2023, 03/12/2022, 02/06/2021, Additional history exists HbA1c 07/15/2024 01/13/2024, 09/04, 09/23/2022, Additional history exists Albumin/Creatinine Ratio 09/19/2024 024, 03/30/2022, 06/02/2018 B-12 09/19/2024 09/20/2023, 09/05, 02/05/2021, Additional history exists Diabetic Eye Exam 10/12/2024 10/13/2023, , 10/14/2022, Additional history exists O2 ASSESSMENT COMPLETED IN PAST YEAR FOR COPD 12/13/2024 12/14/2023 GFR 01/12/2025 01/13/2024, 10/05, 09/20/2023, Additional history exists DXA Scan 11/15/2025 11/16/2023, 02/04, 01/08/2019, Additional history exists DTap/Tdap Vaccines (3 - Td or Tdap) 09/18/2028 09/18/2018, 09/11/2008 Lipid Panel 01/12/2029 01/13/2024, 03/07, 09/03/2021, Additional history exists Pneumococcal Vaccine: Pediatrics (0 to 5 Years) and At-Risk Patients (6 to 64 Years) (3 of 3 - PPSV23 or PCV20) 2034 05/20/2017, 04/19/2014, 04/14/2009 VITAMIN D LEVEL ONCE IN A LIFETIME-USE SMARTSET# [id number] Completed 09/23/2022, 09/03/2021, 08/30/2018, Additional history exists [...] Power of Attor ambreen? No Care Teams Ceo And Founder Relationship Specialty Start Date End Date Andrzej Downing MD [address] [place] [address] PCP - General Family Medicine 03/20/19 documented as of this encounter
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
--- OUTSIDE RECORDS SUMMARY | 2024-05-18 00:30 | External Medical Summary | Summary of Care ---
Author Name Unknown Organization [facility] Address [address] [place] [address] Phone [phone] Care Team Providers Care Waiter/Waitress Captain Name Role Phone Andrzej Downing MD Primary Care Provider +1- [phone] Encounter Details Date Type Department Care Team (Late st Contact Info) Description 01/29/2024 Result Scan Unspecified Department <No scans attached> Allergies Active Allergy Reactions Criticality Noted Date [...] 3, contact heart failure managing provider or [facility] at Home Teacher Theater Arts. 1 Each 05/12/2018 Active Fluticasone Propionate 50 MCG/ACT Nasal Suspension (FLONASE)Indicatio ns:Nasal polyp Administer 2 Sprays into each nostril daily. Use in morning 48 g 3 05/27/2020 Active Additional Information Patient taking differently:2 [place] Each Nostril Daily(AM),Use in morning as needed, [...] dysfunction, NYHA class 3 ([facility]) take 4 tablets by mouth twice a day 240 Tablet 11 06/14/2023 Active Ozempic (1 MG/DOSE) 4 MG/3ML Subcutaneous Solution Pen-injector (Semaglutide (1 MG/DOSE))Indicatio ns:Type 2 diabetes mellitus with hemoglobin A1c goal of less than 7.0% ([facility]) INJECT 1MG UNDER THE SKIN ONCE [...] Respimat 2.5 MCG/ACT Inhalation Aerosol Solution (Tiotropium [place] Monohydrate)Indica tions:breathing Inhale 2 Puffs by mouth [...] allergic rhinitis due to pollen Administer 1 [place] into nostril in the morning and 1 [place] before bedtime. 30 mL 12 09/20/2023 Active [...] empagliflozin (ex. 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 [place] [address] Louise Zarate RDN 132 [facility] [place] [address] 02/23/2024 2:00 PM EDT Office Visit Sleep Disorders [facility] 132 [facility] [place] [phone] Jyotsna Shah CRNP 132 [facility] [place] [address] 04/13/2024 2:00 PM EST PulmDiagnostic Pulmonary Function Lab, [address] [address] 1, [address] [place] [address] 04/13/2024 3:30 PM EST Office Visit Pulmonary Medicine, [place] [address] [place] [address] Jose Dsouza MD [address] [place] [address] 04/26/2024 1:20 PM EST Office Visit Family [facility] [address] [place] [address] Andrzej Downing MD [address] [place] [address] Health Maintenance Due Date Last Done Comments [...] D LEVEL ONCE IN A LIFETIME-USE SMARTSET# [id number] Completed 09/23/2022, 09/03/2021, 08/30/2018, Additional history exists HPV (Gardasil) Vaccine Aged Out No lo nger eligible based on patient's age to complete this topic MENINGOCOCCAL (MENACTRA/MENVEO) Aged Out No longer eligible based on patient's age to complete this topic documented as of this encounter Medical Devices Not on filedocumented as of this encounter Procedures Procedure Name Priority Date/Time Associated Diagnosis Comments RADIOLOGY SCANNED RESULT 01/29/2024 documented in this encounter Results * RADIOLOGY SCANNED RESULT (01/29/2024) 01/29/2024 No Physician Data Unknown DIAGNOSTIC RAD IOLOGY SERVICES documented in this encounter Advance Directives * [...] Power of Attor ambreen? No Care Teams Waiter/Waitress Captain Relationship Specialty Start Date End Date Andrzej Downing MD [address] [place] [address] PCP - General Family Medicine 03/20/19 documented as of this encounter
--- OUTSIDE RECORDS SUMMARY | 2024-05-18 07:52 | External Medical Summary | Summary of Care ---
Author Name Unknown Organization [facility] Address [address] [facility] [address] Phone [phone] Care Team Providers Care Director Of Health Education Name Role Phone Andrzej Downing MD Primary Care Provider +1- [phone] Reason for Visit * Reason Onset Date Comments [facility]: Maintenance 05/16/2024 Encounter Details Date Type Department Care Team (Late st Contact Info) Description 05/16/2024 8:30 AM EST Scheduled Telephone [facility], [facility] 132 [facility] [place] [address] [facility], Nurse [facility] [address] [place] [address] Allergies Active Allergy Reactions Criticality Noted Date [...] failure managing provider or [facility] Icer Hand. 1 Each 05/12/20 18 Active Fluticasone Propionate 50 MCG/ACT Nasal Suspension (FLONASE)Indicat ions:Nasal polyp Administer 2 Sprays into each nostril daily. Use in morning 48 g 3 05/27/20 20 Active Additional Information Patient taking differently:2 [place] Each Nostril Daily(AM),Use in morning as needed, [...] allergic rhinitis due to pollen Administer 1 [place] into nostril in the morning and 1 [place] before bedtime. 30 mL 12 09/20/19 24 [...] empagliflozin (ex. 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 Amilcar states that he just called 911 as he is having "trouble breathing, really dry mouth, and I have something sticking in my sinuses". He states that the ambulance usually takes him to [facility]. Will route to the pt's [facility] care team Margaret OROPEZA RN [facility] Intake Nurse Navigator Triage * Telephone Encounter - Margaret Strange RN - 05/16/2024 9:18 AM EST Outgoing call to pt to f/u- see how he is feeling today and find out if he heard from his PCP with any advice? Left message suggesting [facility] acute HV if he is not improved and if he is agreeable to same. Left a detailed message on his machine requesting return call to [facility], [phone]# provided. Will send to the pt's [facility] care team. Margaret OROPEZA RN [facility] Intake Nurse Navigator Triage documented in this encounter Plan of Treatment Upcoming Encounters Date Type Department Care Team (Late st Contact Info) Description 05/18/2024 2:30 PM EST Home Visit [facility] [address] [place] [address] Susan Sutherland RN [address] [place] [address] 05/24/2024 2:30 PM EST Nutrition Services Nutrition & Weight Management, [facility] 132 [facility] [place] [address] Louise Zarate RDN 132 [facility] [place] [address] 07/16/2024 2:30 PM EST Cardiac Studies Cardiac Studies, [facility] 132 [facility] [place] [address] 08/28/2024 10:30 AM EDT Office Visit Sleep Disorders Ctr [facility] 132 [facility] [place] [phone] Jyotsna Shah CRNP [address] [facility] [place] [address] 11/01/2024 2:40 PM EDT Office Visit [facility] [address] [place] [phone] Andrzej Downing MD [address] [place] [address] Health Maintenance Due Date Last Done Comments [...] D LEVEL ONCE IN A LIFETIME-USE SMARTSET# [id number] Completed 09/23/2022, 09/03/2021, 08/30/2018, Additional history exists [...] Attor ambreen? No Care Teams Director Of Health Education Relationship Specialty Start Date End Date Andrzej Downing MD [address] [facility] [place] [address] PCP - General Family Medicine 03/20/19 documented as of this encounter
[2024-05-18 08:42] LABS: BUN Creatinine Ratio 29.4 (10-20); Calcium 9.3 mg/dl (8.6-10.3); Creatinine Clr Calc Pharmacy 92.2 ml/min
[2024-05-18] MEDS: predniSONE 20 MG TAB PO SCH (09:55)
--- NOTE | 2024-05-18 10:17 | Hospitalist Progress Note ---
Date of Service May 18, 2024 Assessment & Plan (1) Acute on chronic hypoxic respiratory failure: (2) COPD exacerbation: (3) Multifocal pneumonia: (4) Demand ischemia: (5) Sarcoidosis: (6) Restrictive lung disease: (7) ANGELES (obstructive sleep apnea): (8) Pulmonary HTN: (9) DMII (diabetes mellitus, type 2): (10) HTN (hypertension): (11) Elevated troponin: Plan Patient is a 53-year-old gentleman acute on chronic respiratory failure due to multifocal pneumonia that was present on admission and treated as outpatient. Exacerbation of his restrictive lung disease and COPD in the setting of sarcoidosis. Patient appears to be improving Titrate oxygen down to his home flow as tolerated Reviewed pulmonary recommendations for prolonged steroid use, antibiotic recommendations Glucose reviewed, well-controlled even with the use of steroids Continue diuretics Anticipate discharge home in 1 to 2 days if returns to baseline oxygen requirements Admission and Anticipated Discharge Date Admission Date: May 16, 2024 Subjective Patient is definitely feeling better. Still with a lot of postnasal drip. Cough is improved. Shortness of breath is improved but still winded with activity Physical Exam Physical Exam: Constitutional: Alert, nontoxic, sitting in chair HEENT: Mucous membranes moist. Lungs: Decreased breath sounds, coarse wheezing throughout, prolonged expiratory phase, improved airflow when compared to yesterday CV: S1-S2, regular Abdomen: Soft, nontender, nondistended Extremities: No significant edema Neuro: No focal deficits Psych: Cooperative, normal mood Results & Data Results & Data Vital Signs (Past 12 Hours) Vital Signs Temp Pulse Pulse Resp BP Pulse Ox O2 Del Method 05/18/24 09:53 87 05/18/24 07:42 35.9 C L 87 18 111/70 96 Nasal Cannula 05/18/24 07:10 90 20 95 Nasal Cannula O2 Flow Rate 05/18/24 09:53 05/18/24 07:42 6 05/18/24 07:10 6 Diagnostic Findings Reviewed imaging, laboratory and diagnostic studies. Pertinent findings as below. Bicarb 39 Creatinine 1.09 Glucose 79
[2024-05-18] MEDS ORDERED: VANCOMYCIN CONSULT ACTIVE PRN (14:58)
[2024-05-18] MEDS: VANCOMYCIN HCL 2,000 MG in SODIUM CHLORIDE 0.9% 500 ML IV ONE (16:37)
--- NOTE | 2024-05-18 19:16 | Pharmacy Report ---
Pharmacy PK ABX Note - Date of Service May 18, 2024 - Assessment and Plan Assessment 53 year old M with COPD, h/o pulmonary sarcoidosis and chronic respiratory failure (chronic nasal cannula at baseline) who presented with worsening SOB and cough. Patient recently completed a course of Augmentin following by a course of Levofloxacin in addition to prednisone taper. Patient started on broad spectrum antibiotics for pneumonia; ceftriaxone + azithromycin --> pip/tazo (started 05/16). Vancomycin IV added today per Pulmonology for coverage of Corynebacterium growing in sputum culture. ID consult pending. Pertinent microbiologic data includes: * Sputum culture - Corynebacterium striatum * negative MRSA nasal swab * negative PCR respiratory panel Plan Vancomycin * Loading dose: 2000 mg IV x 1 * Maintenance dose: 1250 mg IV every 12 hours * Regimen is predicted to achieve target AUC/TORI of 400-600 mg/L.hr * steady state AUC: 541 * Level to be ordered on further eval Pharmacy will continue to follow and will adjust dose/frequency as necessary. Thank you.
[2024-05-19] MEDS: VANCOMYCIN HCL 1,250 MG in SODIUM CHLORIDE 0.9% 250 ML IV SCH (04:58)
[2024-05-19 06:38] LABS: Creatinine Clr Calc Pharmacy 81.7 ml/min
--- NOTE | 2024-05-19 11:58 | Hospitalist Progress Note ---
Date of Service May 19, 2024 Assessment & Plan (1) Acute on chronic hypoxic respiratory failure: (2) COPD exacerbation: (3) Multifocal pneumonia: (4) Demand ischemia: (5) Sarcoidosis: (6) Restrictive lung disease: (7) ANGELES (obstructive sleep apnea): (8) Pulmonary HTN: (9) DMII (diabetes mellitus, type 2): (10) HTN (hypertension): (11) Elevated troponin: Plan Based on sputum culture vancomycin added to medical regimen, however did seem to be improving on Zosyn. Continue other supportive care Infectious disease input pending Patient at his baseline oxygen requirement Encourage activity as tolerated Admission and Anticipated Discharge Date Admission Date: May 16, 2024 Subjective Patient states he is definitely feeling better. Still winded with activity Physical Exam Physical Exam: Constitutional: Alert, nontoxic HEENT: Mucous membranes moist. Lungs: Decreased breath sounds but overall improved airflow, diffuse wheezes steadily improving CV: S1-S2, regular Abdomen: Soft, nontender, nondistended Extremities: No significant edema Neuro: No focal deficits Psych: Cooperative, normal mood Results & Data Results & Data Vital Signs (Past 12 Hours) Vital Signs Temp Pulse Pulse Resp BP Pulse Ox O2 Del Method 05/19/24 10:34 97 H 20 90 Nasal Cannula 05/19/24 08:00 Nasal Cannula 05/19/24 07:50 76 05/19/24 07:47 36.4 C L 76 20 108/69 95 Nasal Cannula 05/19/24 06:57 105 H 20 96 Nasal Cannula O2 Flow Rate 05/19/24 10:34 4 05/19/24 08:00 4 05/19/24 07:50 05/19/24 07:47 4 05/19/24 06:57 4 Diagnostic Findings Reviewed imaging, laboratory and diagnostic studies. Pertinent findings as below. Creatinine 1.23 Glucose 185 Sputum culture growing coryne bacterium
[2024-05-20] MEDS: VANCOMYCIN LEVEL ONE (03:30)
[2024-05-20 03:56] LABS: Creatinine Clr Calc Pharmacy 87.4 ml/min
--- NOTE | 2024-05-20 09:51 | Pharmacy Report ---
Pharmacy PK ABX Note - Date of Service May 20, 2024 - Assessment and Plan Assessment 53 year old M with COPD, h/o pulmonary sarcoidosis and chronic respiratory failure (chronic nasal cannula at baseline) who presented with worsening SOB and cough. Patient recently completed a course of Augmentin following by a course of Levofloxacin in addition to prednisone taper. Patient started on broad spectrum antibiotics for pneumonia; ceftriaxone + azithromycin --> pip/tazo (started 05/16). Vancomycin IV added 05/18 per Pulmonology for coverage of Corynebacterium growing in sputum culture. ID consult pending. Pertinent microbiologic data includes: * Sputum culture - Corynebacterium striatum * negative MRSA nasal swab * negative PCR respiratory panel Plan Vancomycin * Maintenance dose: 1250 mg IV every 12 hours * Target AUC/TORI of 400-600 mg/L.hr * Random level of 13.1 mcg/mL today associated with a therapeutic AUC of 557 mcg/mL * Repeat random level in 48 hours to assess for accumulation 2nd BMI Pharmacy will continue to follow and will adjust dose/frequency as necessary. Thank you.
--- NOTE | 2024-05-20 13:02 | Hospitalist Progress Note ---
Date of Service May 20, 2024 Assessment & Plan (1) Acute on chronic hypoxic respiratory failure: (2) COPD exacerbation: (3) Multifocal pneumonia: (4) Demand ischemia: (5) Sarcoidosis: (6) Restrictive lung disease: (7) ANGELES (obstructive sleep apnea): (8) Pulmonary HTN: (9) DMII (diabetes mellitus, type 2): (10) HTN (hypertension): (11) Elevated troponin: Plan Patient with multifocal pneumonia in setting of sarcoidosis and chronic respiratory failure. Patient at baseline oxygen requirement Patient improving on current antibiotic regimen Awaiting infectious disease input on possible transition to oral antibiotics in the setting of Coryne bacterium pneumonia infection Admission and Anticipated Discharge Date Admission Date: May 16, 2024 Subjective Patient feels that he is steadily improving, still little bit tachypneic and short of breath with activity Physical Exam Physical Exam: Constitutional: Alert, no acute distress, nontoxic HEENT: Mucous membranes moist. Lungs: Decreased breath sounds, coarse airflow but overall significantly improved. Scattered wheezes which suspect are somewhat chronic CV: S1-S2, regular Abdomen: Soft, nontender, nondistended Extremities: No significant edema Neuro: No focal deficits Psych: Cooperative, normal mood Results & Data Results & Data Vital Signs (Past 12 Hours) Vital Signs Temp Pulse Pulse Resp BP Pulse Ox O2 Del Method 05/20/24 08:15 Nasal Cannula, BiPAP 05/20/24 08:04 83 05/20/24 07:24 36.5 C 83 18 114/78 100 Nebulizer 05/20/24 07:19 88 18 90 Nasal Cannula O2 Flow Rate 05/20/24 08:15 4 05/20/24 08:04 05/20/24 07:24 05/20/24 07:19 4 Diagnostic Findings Reviewed imaging, laboratory and diagnostic studies. Pertinent findings as below. Creatinine 1.1
--- NOTE | 2024-05-20 14:52 | Pulmonology Progress Note ---
Date of Service May 20, 2024 Assessment & Plan (1) Multifocal pneumonia: (2) Acute on chronic hypoxic respiratory failure: (3) Sarcoidosis: (4) Restrictive lung disease: (5) Pulmonary HTN: Plan 53-year-old male with a longstanding history of severe pulmonary sarcoidosis, chronic hypoxic respiratory failure on 4 to 6 L of oxygen, group 2/3/5 pulmonary hypertension now presenting with acute left-sided infiltrates. He is status post Augmentin and levofloxacin as an outpatient. He was placed on azithromycin by the hospitalist service. Continue Zosyn given his structural lung disease. Sputum cultures are growing pinpoint organisms and are currently being reincubated. Will defer further management of antibiotics at this time to infectious disease as he is pending consult. Continue prednisone 40 mg daily until he is seen by pulmonary medicine at [facility]. Please discussed with case management about reaching out to pulmonary [facility] medicine to schedule his appointment within the next 1 to 2 weeks. Echo revealed evidence of severe pulmonary hypertension. Will defer right heart catheterization to his outpatient helpdesk administrator through [place]. Patient previously did have a right heart catheterization in 2017 which revealed a mean pulmonary artery pressure of 34, wedge of 22 and a PVR of 2.09 Wood units on 5 L of oxygen. He will likely benefit from a repeat right heart catheterization as an outpatient. His BNP on admission was minimally elevated. Patient is on torsemide 80 mg p.o. twice daily as an outpatient. Consider reinitiating diuresis while in the hospital. Continue ICS/LABA medications. Would recommend continue prednisone at a dose of 40 mg daily for 7 days then de-escalating to 20 mg daily indefinitely until he sees his outpatient pulmonary provider. He we will need to be initiated on Bactrim every Tuesday, Tuesday and Tuesday for PJP prophylaxis. Will change potassium chloride 20 mEq twice daily to 20 daily given the risk of hyperkalemia associated with Bactrim. Patient also on spironolactone. Will need routine BMPs checked. Recommend outpatient pulmonary rehab referral. Additionally, recommend referral to transplant center for evaluation of lung transplant candidacy. Patient in agreement with plan. Also discussed with patient's father at bedside. Pulmonary will continue to follow. Suspect he will be able to be discharged home in the next 1 to 2 days. Thank you for the consult. Admission and Anticipated Discharge Date Admission Date: May 16, 2024 Subjective Patient feels that he is getting close to his baseline. He occasionally has a productive cough but this is subsided significantly. He denies any chest pain, fevers or chills. Review of Systems Review of Systems: All systems reviewed & are unremarkable except as noted in HPI & below Physical Exam Physical Exam: Constitutional: Patient appears to be of their stated age. Patient is in no apparent distress. Patient is well-developed. Eyes: Pupils are equal round and reactive to light. Conjunctivae are normal. Anicteric sclera. Ears nose, mouth and throat: Mallampati class 2. Normal posterior oropharynx. Uvula is midline. Neck: Trachea is midline. Visual inspection is normal. Respiratory: Prolonged phase of exhalation. Mild expiratory wheeze. No increased work of breathing. Cardiovascular: Regular rate and rhythm. No murmurs. No edema. Gastrointestinal: Normal bowel sounds, soft, nontender and nondistended. No hepatosplenomegaly noted. Musculoskeletal: No cyanosis. Patient is able to move all extremities. Strength is 5 out of 5 in the upper and lower extremities. Skin: No rashes, warm dry and intact. Neurologic: No obvious focal neurological deficits seen. Psychiatric: Alert and oriented x3 with a euthymic affect. Results & Data Results & Data Vital Signs (Past 12 Hours) Vital Signs Temp Pulse Pulse Resp BP Pulse Ox O2 Del Method 05/20/24 08:15 Nasal Cannula, BiPAP 05/20/24 08:04 83 05/20/24 07:24 36.5 C 83 18 114/78 100 Nebulizer 05/20/24 07:19 88 18 90 Nasal Cannula O2 Flow Rate 05/20/24 08:15 4 05/20/24 08:04 05/20/24 07:24 05/20/24 07:19 4 PG Care Time/CCT Total # of Minutes Spent Total Time Spent with Patient: Total time spent is greater than 50% in coordination of care (as documented) at patient's floor/unit and/or counseling patient: Coding Level of Care Code 74204 SUB INP/OBS CARE 3/50MIN Diagnoses Multifocal pneumonia J18.9 Acute on chronic hypoxic respiratory failure J96.21 Sarcoidosis D86.9 Restrictive lung disease J98.4 Pulmonary HTN I27.20
[2024-05-20] MEDS: POTASSIUM CHLORIDE CRTAB 20 MEQ TABCR PO SCH (16:27)
[2024-05-21 08:17] LABS: Hematocrit (blood only) 47.7 % (42.0-52.0); Hemoglobin 15.1 g/dl (14.0-18.0); Mean Corpuscular Hemoglobin 28.2 pg (25.0-34.0); Mean Corpuscular Hgb Conc 31.7 g/dL (32.0-36.0); Mean Corpuscular Volume 89.2 fL (80.0-100.0); Mean Platelet Volume 8.6 fL (9.4-12.4); Platelet Count 292 K/uL (130-400); RDW Coefficient of Variation 16.4 % (11.5-14.5); RDW Standard Deviation 52.9 fL (36.4-46.3); Red Blood Count 5.35 M/uL (4.70-6.10); White Blood Count 10.41 K/ul (4.8-10.8)
[2024-05-21] MEDS: SULFAMETHOXAZOLE/TRIMETHOPRIM DS 800/160MG TAB PO SCH (08:29)
[2024-05-21 08:34] LABS: BUN Creatinine Ratio 18.4 (10-20); Calcium 9.3 mg/dl (8.6-10.3); Creatinine Clr Calc Pharmacy 80.4 ml/min; Potassium 3.8 mmol/L (3.5-5.1)
--- NOTE | 2024-05-21 12:03 | Pulmonology Progress Note ---
Date of Service May 21, 2024 Assessment & Plan (1) Multifocal pneumonia: (2) [id number]-egyxwmi respiratory failure: Respiratory failure complication: hypoxia Qualified Code(s): J96.21 - Acute and chronic respiratory failure with hypoxia (3) Sarcoidosis: (4) Restrictive lung disease: (5) Pulmonary HTN: Plan IMPRESSION: 53-year-old male with a significant past medical history of chronic respiratory failure on 4 L nasal cannula at baseline, sarcoidosis, restrictive lung disease, and pulmonary hypertension who follows at [facility] presented in the setting of multifocal infiltrative changes of the lungs and escalation of his supplemental oxygen requirement from baseline RECOMMENDATIONS: 1. Multifocal pneumonia - Sputum cultures for corny bacterium on 05/16. Uncertain of the significance contributing to current findings. Patient's symptoms have improved since hospitalization date on 05/16. Can likely de- escalate to oral medications for plan for discharged home. Infectious disease patient pending. 2. Acute on chronic hypoxic respiratory failure - In the setting of #1. Patient back to his baseline at this time. He is feeling well and doing better on his home inhaler regimen. 3. Sarcoidosis - Not on suppressive medications currently. Managed by [facility]. 4. Restrictive lung disease - In the setting of #3 and obesity. 5. Pulmonary hypertension - Patient with significant PASP estimated to be 96 mmHg which has significantly worsened since prior echocardiogram on 08/31/2023. Patient is managed by the pulmonary hypertension clinic at [place]. He will require follow-up from this visit. Thank you for allowing us participate in the care of this pleasant patient. Pulmonary medicine will sign off at this time. Please feel free to reach out to us for any other questions or concerns. Admission and Anticipated Discharge Date Admission Date: May 16, 2024 Supervising Physician Co-Signing Physician Notes Patient seen and examined. EMR reviewed. Discussed with off going ct manager as well as with [facility] and agree with assessment plan as noted. Images were independently reviewed. The patient reports that he is improving but is not quite back to baseline. He desaturates with ambulation. His breath sounds are rhonchorous on exam. He does not have signs or symptoms of significant right-sided heart failure including lower extremity edema, palpitations, syncope, or presyncope. Recomm end follow-up in the outpatient setting with [facility] pulmonary hypertension center for right heart cath to substantiate findings on echocardiogram. Defer antibiotics to infectious disease. Agree with plans for steroid taper. Continue Breo. Add long-acting anticholinergic. Wean oxygen as tolerated. The patient feels that he can ambulate in the hallways at his baseline, he may be candidate for dismissal to the hospital. Please contact us with questions or concerns Subjective Patient seen and evaluated at bedside. He reports an uneventful night. He states that he is back to near his baseline. He is on 4 L nasal cannula. He is hopeful to be discharged home soon. Review of Systems Review of Systems: As per HPI Physical Exam Physical Exam: VITAL SIGNS Vital signs and nursing notes were reviewed. GENERAL 53-year-old male appearing his stated age who is in no acute distress. Communicates well with provider and answers questions appropriately. SKIN Without rashes or lesions. NOSE Midline and without cyanosis. MOUTH/OROPHARYNX Without perioral cyanosis. NECK Neck with FROM. LUNGS Chest wall evaluation demonstrates normal chest wall A:P diameter. Auscultation reveals slight wheezes in the upper lung moser bilaterally. CARDIAC RRR with S1/S2. No murmur, rubs, or gallops appreciated. PSYCH A&Ox3 and cooperates fully with examiner. Pt is very pleasant and interacts well with examiner. Results & Data Results & Data Vital Signs (Past 12 Hours) Vital Signs Temp Pulse Pulse Resp BP Pulse Ox O2 Del Method 05/21/24 11:14 104 H 18 91 Nasal Cannula 05/21/24 08:31 68 05/21/24 07:25 Nasal Cannula 05/21/24 07:11 68 16 93 Nasal Cannula 05/21/24 06:14 36.2 C L 74 20 125/74 94 Nasal Cannula O2 Flow Rate 05/21/24 11:14 4 05/21/24 08:31 05/21/24 07:25 4 05/21/24 07:11 4 05/21/24 06:14 4 PG Care Time/CCT Total # of Minutes Spent Total Time Spent with Patient: Total time spent is greater than 50% in coordination of care (as documented) at patient's floor/unit and/or counseling patient: Coding Level of Care Code 88524 SUB INP/OBS CARE 2/35MIN Diagnoses Multifocal pneumonia J18.9 Jajew-lp-kofmohi respiratory failure J96.21 Respiratory failure complication: hypoxia Sarcoidosis D86.9 Restrictive lung disease J98.4 Pulmonary HTN I27.20
--- NOTE | 2024-05-21 13:10 | Infectious Disease Consult ---
Date of Service May 21, 2024 Telehealth Information I performed this visit using a real-time telehealth connection between my location and the patients location ([facility]). After connecting through interactive tele-video, patient was identified by name and date of and/or wristband check.Patient (or authorized healthcare career services representative) was informed that this was a telemedicine visit and it was being conducted confidentially over secure lines. My office door was closed and no one else was present in the room with me.Patient (or authorized healthcare career services representative) provided consent to proceed with the visit, expressed an understanding of privacy and security of the telemedicine visit, and gave permission to have a hospital career services representative in the room in order to assist with the visit and to conduct portions of the visit, as needed. I informed the patient (or authorized healthcare career services representative) that I reviewed their record and presented the opportunity for them to ask any questions regarding the visit today. The patient agreed to participate. Assessment & Plan (1) Multifocal pneumonia: Plan: I am not sure how many days of ABX the patient has received to date. Per his report he was treated with PO ABX prior to admission then a course of IV ABX once admitted to [facility]. I suspect that he has received 7 days of ABX for "usual" pathogens. With regard to less common causes of PNA, the Coryne that the patient grew in sputum may or may not be a true pathogen. Given that he reports a vdhy-myqk-[id number] response to typical CAP treatment, I would recommend to err on the side of continuing IV vancomycin to complete a 7-day course. In the meantime, I recommend to rule out other pathogens (eg PJP, cryptococcus, Legionella, AFB, Nocardia/actino, etc) either via respiratory samples or labs. If the patient does not improve, consider a bronchoscopy. I agree with PJP prophylaxis if the patient will be continuing on 20mg Prednisone (or its equivalent) at discharge. All orders are deferred to the primary/requesting service. These recommendations are not final. For subsequent recommendations, use the on-call schedule to find out which ID provider is covering your facility. History of Present Illness History of Present Illness The patient was admitted for dyspnea (in the context of sarcoidosis). Workup revealed multifocal infiltrates. The patient was seen by Pulmonology and they recommended continuing IV ABX. Respiratory cultures grew normal joe and Corynebacterium. The patient reports feeling better. Allergies Allergy/AdvReac Type Severity Reaction Status Date / Time doxycycline AdvReac Severe Vomiting Verified 09/08/23 08:00 Home Medications Medication Instructions Recorded Confirmed Type aspirin 81 mg chewable tablet 81 mg PO QAM 10/08/19 05/16/24 History (Claire Chewable Low Dose Aspirin) citalopram 20 mg tablet 20 mg PO QAM 10/08/19 05/16/24 History digoxin 125 mcg (0.125 mg) tablet 125 mcg PO QAM 10/08/19 05/16/24 History (Digitek) empagliflozin 25 mg tablet 25 mg PO QAM 10/08/19 05/16/24 History (Jardiance) ferrous sulfate 325 mg (65 mg 325 mg PO QAM 10/08/19 05/16/24 History iron) tablet folic acid 1 mg tablet 1 mg PO QAM 10/08/19 05/16/24 History losartan 25 mg tablet 25 mg PO QAM 10/08/19 05/16/24 History metformin 500 mg tablet,extended 1,000 mg PO QAM 10/08/19 05/16/24 History release 24 hr omeprazole 20 mg capsule,delayed 20 mg PO QAM 10/08/19 05/16/24 History release potassium chloride 20 mEq 20 meq PO BID 10/08/19 05/16/24 History tablet,extended release(part/cryst) spironolactone 25 mg tablet 25 mg PO UD 10/08/19 05/16/24 History tamsulosin 0.4 mg capsule 0.4 mg PO DAILY 10/08/19 05/16/24 History torsemide 20 mg tablet 80 mg PO BID 10/08/19 05/16/24 History albuterol sulfate 2.5 mg/3 mL 2.5 mg inhalation DAILY PRN Dyspnea 03/02/22 05/16/24 History (0.083 %) solution for nebulization albuterol sulfate 90 mcg/actuation 2 puff inhalation Q4H PRN Dyspnea 03/02/22 05/16/24 History aerosol inhaler ascorbic acid (vitamin C) 250 mg 500 mg PO QAM 03/02/22 05/16/24 History tablet (Vitamin C) fluticasone propionate 50 2 spray intranasal QAM 03/02/22 05/16/24 History mcg/actuation nasal spray,suspension levocetirizine 5 mg tablet 5 mg PO DAILY PRN Allergy Symptoms 03/02/22 05/16/24 History montelukast 10 mg tablet 10 mg PO HS 03/02/22 05/16/24 History multivitamin 1 tab PO DAILY 03/02/22 05/16/24 History acetaminophen 325 mg tablet 650 mg (2 x 325 mg) PO Q4H PRN 03/04/22 05/16/24 Rx pain #30 tabs tiotropium bromide 2.5 2 puff inhalation DAILY 08/30/23 05/16/24 History mcg/actuation mist for inhalation (Spiriva Respimat) guaifenesin 600 mg tablet, 600 mg PO Q12 PRN mucus 09/08/23 05/16/24 History extended release 12 hr (Mucinex) semaglutide 1 mg/dose (4 mg/3 mL) 4 mg subcut WK 09/08/23 05/16/24 History subcutaneous pen injector (Ozempic) fluticasone furoate 200 1 inh inhalation DAILY 05/16/24 05/16/24 History mcg-vilanterol 25 mcg/dose inhalation powder (Breo Ellipta) rosuvastatin 5 mg tablet 5 mg PO DAILY 05/16/24 05/16/24 History Patient History Surgical History H/O right heart catheterization [facility] [place] S/P bronchoscopy Hx of tonsillectomy Family History Other Cancer Sarcoidosis Social History Smoking Status: Never smoker Tobacco Type: Smokeless Tobacco (Dip or Chew) Second Hand Exposure: No; Do You Dip or Chew Tobacco: Yes; Hx Alcohol Use: Yes Alcohol type: beer Hx Substance Use: No Preferred Language: Lao Communication Ability: Effective Back [employer] Required: No Beliefs That Will Affect Care: None marital status: Single Current Living Situation: Alone How many Children do You have: 0 Other Information That Helps Us Care for You: No Feels Safe at Home: Yes Safety Concerns: Feels Safe At This Time Assistive Devices: Oxygen - Continuous Review of Systems As reviewed in HPI; a complete ROS was otherwise negative Physical Exam Vitals: see EMR Exam limited due to constraints of telemedicine Gen/Constitutional: appears at stated age, NAD, nontoxic Head: AT, NC, supplemental oxygen in place Eyes: sclera anicteric, no conjunctival injection ENT: MMM, trachea midline Card: appears to be well-perfused Resp: not tachypneic, nml effort, symmetric chest rise, no accessory muscle use Derm: no visible diaphoresis, no visible rash, no visible jaundice Results & Data Vital Signs (Past 12 Hours) Vital Signs Temp Pulse Pulse Resp BP Pulse Ox O2 Del Method 05/21/24 11:14 104 H 18 91 Nasal Cannula 05/21/24 08:31 68 05/21/24 07:25 Nasal Cannula 05/21/24 07:11 68 16 93 Nasal Cannula 05/21/24 06:14 36.2 C L 74 20 125/74 94 Nasal Cannula O2 Flow Rate 05/21/24 11:14 4 05/21/24 08:31 05/21/24 07:25 4 05/21/24 07:11 4 05/21/24 06:14 4 Laboratory Results SEE EMR Diagnostic Findings SEE EMR
--- NOTE | 2024-05-21 14:07 | Hospitalist Progress Note ---
Date of Service May 21, 2024 Assessment & Plan (1) Acute on chronic hypoxic respiratory failure: (2) COPD exacerbation: (3) Multifocal pneumonia: (4) Demand ischemia: (5) Sarcoidosis: (6) Restrictive lung disease: (7) ANGELES (obstructive sleep apnea): (8) Pulmonary HTN: (9) DMII (diabetes mellitus, type 2): (10) HTN (hypertension): (11) Elevated troponin: Plan Patient with multifocal pneumonia, steadily improving Reviewed infectious disease recommendations of 7 days of vancomycin Continue vancomycin through 05/24/2024 Discontinue Zosyn, patient has had an extensive course of antibiotic treatment for other bacteria for his pneumonia. Continuing the 7-day course of treatment for the Corynebacterium and pneumonia Continue PJP prophylaxis with Tuesday Bactrim Continue prednisone 40 mg through 05/23/2024 then continue 20 mg daily till he follows with outpatient pulmonary Continue diuretics for management of his right ventricular failure/pulmonary hypertension Encourage activity Continue baseline home oxygen therapy Admission and Anticipated Discharge Date Admission Date: May 16, 2024 Subjective Patient saying he is feeling steady improvement Physical Exam Physical Exam: Constitutional: Alert, nontoxic HEENT: Mucous membranes moist. Lungs: Decreased coarse breath sounds, diffuse expiratory wheezes, suspect probably baseline, some coarse upper airway rhonchi that clears with cough CV: S1-S2, regular Abdomen: Soft, nontender, nondistended Extremities: No significant edema Neuro: No focal deficits Psych: Cooperative, normal mood Results & Data Results & Data Vital Signs (Past 12 Hours) Vital Signs Temp Pulse Pulse Resp BP Pulse Ox O2 Del Method 05/21/24 11:14 104 H 18 91 Nasal Cannula 05/21/24 08:31 68 05/21/24 07:25 Nasal Cannula 05/21/24 07:11 68 16 93 Nasal Cannula 05/21/24 06:14 36.2 C L 74 20 125/74 94 Nasal Cannula O2 Flow Rate 05/21/24 11:14 4 05/21/24 08:31 05/21/24 07:25 4 05/21/24 07:11 4 05/21/24 06:14 4 Diagnostic Findings Reviewed imaging, laboratory and diagnostic studies. Pertinent findings as below. WBCs 10.4 Hemoglobin 15.1 Sodium 141 Potassium 3.8 Bicarb 42 Creatinine 1.25
[2024-05-21] MEDS: ALBUT/IPRATROP 3MG/0.5MG NEB 3 ML VIAL NEB PRN (19:56)
[2024-05-22 04:29] LABS: BUN Creatinine Ratio 20.5 (10-20); Creatinine Clr Calc Pharmacy 89.8 ml/min; Potassium 3.8 mmol/L (3.5-5.1)
[2024-05-22] MEDS: VANCOMYCIN LEVEL ONE (05:38)
[2024-05-22] MEDS: UMECLIDINIUM BROMIDE 62.5MCG/BLISTER 7 PUFFS/INHALER INH SCH (08:39)
--- NOTE | 2024-05-22 09:17 | Pharmacy Report ---
Pharmacy PK ABX Note - Date of Service May 22, 2024 - Assessment and Plan Assessment 05/22: * Day #5 of Vancomycin. Zosyn therapy was discontinued by hospitalist yesterday. Patient was also started on Bactrim DS 1 tab PO MoWeFr for PJP prophylaxis yesterday by pulmonology. * Remains afebrile. No leukocytosis on most recent CBC. SCr at 1.12 mg/dL this AM (baseline). * Trough level today remains therapeutic. * ID note from yesterday recommends 7 day course of IV Vancomycin to treat Corynebacterium in the sputum. Hospitalist agrees with this plan of action so stop date will be after both doses on 05/24. No more levels should be necessary but will order renal fxn labs for the remainder of therapy to monitor SCr which, if drastically changed, may require a repeat level. 05/20: 53 year old M with COPD, h/o pulmonary sarcoidosis and chronic respiratory failure (chronic nasal cannula at baseline) who presented with worsening SOB and cough. Patient recently completed a course of Augmentin following by a course of Levofloxacin in addition to prednisone taper. Patient started on broad spectrum antibiotics for pneumonia; ceftriaxone + azithromycin --> pip/tazo (started 05/16). Vancomycin IV added 05/18 per Pulmonology for coverage of Corynebacterium growing in sputum culture. ID consult pending. Pertinent microbiologic data includes: * Sputum culture - Corynebacterium striatum * negative MRSA nasal swab * negative PCR respiratory panel * negative blood cultures Plan Vancomycin * Current regimen: 1250 mg IV every 12 hours * Trough level obtained 05/22/24 resulted as 15.7 mcg/mL. This is predicted to achieve target AUC/TORI of 400-600 mg/L.hr * Predicted AUC at steady state: 556 mg/L.hr * Continue 1250 mg IV every 12 hours * Therapy will be complete in the next 48 hours so no more levels will be ordered at this time. Pharmacy will continue to follow and will adjust dose/frequency as necessary. Thank you.
--- NOTE | 2024-05-22 10:45 | Hospitalist Progress Note ---
Date of Service May 22, 2024 Assessment & Plan (1) Acute on chronic hypoxic respiratory failure: (2) COPD exacerbation: (3) Multifocal pneumonia: (4) Demand ischemia: (5) Sarcoidosis: (6) Restrictive lung disease: (7) ANGELES (obstructive sleep apnea): (8) Pulmonary HTN: (9) DMII (diabetes mellitus, type 2): (10) HTN (hypertension): (11) Elevated troponin: Plan Patient with presumed Corynebacterium multifocal pneumonia improving with IV vancomycin Per ID recommendations, 7-day course of IV vancomycin this will go through 05/24/2024. Anticipate he can be discharged after his vancomycin dose on . Continue other supportive care Follow-up with his outpatient residential care officer for his chronic lung issues and pulmonary hypertension. Admission and Anticipated Discharge Date Admission Date: May 16, 2024 Subjective No acute issues overnight. Feels as though he is improving. Physical Exam Physical Exam: Constitutional: Alert, no acute distress, nontoxic HEENT: Mucous membranes moist. Lungs: Decreased breath sounds, coarse rhonchi a few scattered wheezes which is suspect this is baseline CV: S1-S2, regular Abdomen: Soft, nontender, nondistended Extremities: No significant edema Neuro: No focal deficits Psych: Cooperative, normal mood Results & Data Results & Data Vital Signs (Past 12 Hours) Vital Signs Temp Pulse Pulse Resp BP Pulse Ox O2 Del Method 05/22/24 08:37 65 05/22/24 07:10 36.0 C L 65 16 101/64 97 Room Air 05/22/24 07:03 68 16 95 CPAP O2 Flow Rate 05/22/24 08:37 05/22/24 07:10 05/22/24 07:03 4 Diagnostic Findings Electrolytes within normal range Creatinine 1.1 Glucose 104
--- NOTE | 2024-05-22 12:36 | Pulmonology Progress Note ---
Date of Service May 22, 2024 Assessment & Plan (1) Multifocal pneumonia: (2) [id number] respiratory failure: Respiratory failure complication: hypoxia Qualified Code(s): J 96.21 - Acute and chronic respiratory failure with hypoxia (3) Sarcoidosis: (4) Restrictive lung disease: (5) Pulmonary HTN: Plan IMPRESSION: 53-year-old male with a significant past medical history of chronic respiratory failure on 4 L nasal cannula at baseline, sarcoidosis, restrictive lung disease, and pulmonary hypertension who follows at [facility] presented in the setting of multifocal infiltrative changes of the lungs and escalation of his supplemental oxygen requirement from baseline. He is approaching his baseline RECOMMENDATIONS: 1. Multifocal pneumonia - Sputum cultures for corynebacterium on 05/16. I do not suspect that that is pathogenic as this is likely a contaminant. ID notes reviewed. Will defer antibiotics to them. 2. Acute on chronic hypoxic respiratory failure - In the setting of #1. Patient back to his baseline at this time. He is feeling well and doing better on his home inhaler regimen. 3. Sarcoidosis with associated bronchiectasis- Not on suppressive medications currently. Managed by [facility]. Continue hypertonic saline. Continue flutter valve. 4. Restrictive lung disease - In the setting of #3 and obesity. 5. Pulmonary hypertension - Patient with significant PASP estimated to be 96 mmHg which has significantly worsened since prior echocardiogram on 08/31/2023. Patient is managed by the pulmonary hypertension clinic at [place]. He will require follow-up from this visit. Patient feels he is back at his baseline. Feel free to contact us with additional questions or concerns. He can follow-up with his [facility] pulmonary group at discharge Admission and Anticipated Discharge Date Admission Date: May 16, 2024 Subjective Patient seen and examined. EMR reviewed. The patient is sitting up in a chair at the bedside. He thinks his breathing is approaching his baseline. He continues to cough but is not expectorating phlegm. He feels his wheezing is less. He continues to experience some shortness of breath with physical activity but is able to get back and forth to the restroom and again feels like he is approaching his baseline. ID consultation reviewed. Reportedly the patient is going to receive an additional 2 to 3 days of inpatient antibiotics before being discharged. Review of Systems 2 Review of Systems: Please refer to admission H&P and hospitalist note Physical Exam 2 Constitutional: WD/WN, vitals as above Neck: trachea midline, no thyromegaly Respiratory: + cough; no respiratory distress, no lab ored breathing and not tachypneic Auscultation: + rhonchi; no crackles and no wheezes Cardiovascular: RRR, no murmur, no edema Gastrointestinal (Abdomen): normal bowel sounds, soft, nontender, no hepatosplenomegaly Musculoskeletal: Extremities: extremities normal to inspection Skin: no rashes, warm and dry Neurologic: Nonfocal exam Lymphatic: no cervical lymphadenopathy Results & Data Results & Data Vital Signs (Past 12 Hours) Vital Signs Temp Pulse Pulse Resp BP Pulse Ox O2 Del Method 05/22/24 08:45 Room Air 05/22/24 08:37 65 05/22/24 07:10 36.0 C L 65 16 101/64 97 Room Air 05/22/24 07:03 68 16 95 CPAP O2 Flow Rate 05/22/24 08:45 4 05/22/24 08:37 05/22/24 07:10 05/22/24 07:03 4 Laboratory Results 05/21/24 07:50 05/22/24 03:30 Diagnostic Findings No new imaging PG Care Time/CCT Total # of Minutes Spent Total Time Spent with Patient: Total time spent is greater than 50% in coordination of care (as documented) at patient's floor/unit and/or counseling patient: Coding Level of Care Code 25695 SUB INP/OBS CARE 2/35MIN Diagnoses Multifocal pneumonia J18.9 [id number] respiratory failure J96.21 Respiratory failure complication: hypoxia Sarcoidosis D86.9 Restrictive lung disease J98.4 Pulmonary HTN I27.20
[2024-05-23 05:23] LABS: Creatinine Clr Calc Pharmacy 78.5 ml/min
--- NOTE | 2024-05-23 13:57 | Hospitalist Progress Note ---
Date of Service May 23, 2024 Assessment & Plan (1) Acute on chronic hypoxic respiratory failure: Plan: Patient is 53 year old male with COPD, sarcoidosis of lung, chronic respiratory failure on chronic 4 L nasal cannula O2 at baseline, severe obstructive sleep apnea on bipap, history of chronic right-sided heart failure in setting of cor pulmonale, pulmonary HTN, history of blastomycosis with respiratory failure requiring Tracheostomy (s/p decannulation) DM II, HTN, depression, presented to ER with c/o worsening SOB. Failed outpatient Augmentin and Levaquin and 2 courses of prednisone taper; Complicated by multifocal pneumonia, restrictive lung disease, pulmonary hypertension and sarcoidosis Clinically much better and his condition has been improving with current management Appreciate pulmonary input and recommendation Will get PT and OT evaluation and possible discharge in a day or 2 (2) COPD exacerbation: Plan: Has been on nebulized bronchodilators, Singulair, steroid inhaler and also oral prednisone Still has significant wheezing and crackles with decreased airflow bilaterally Seems to be at his baseline and likely discharge tomorrow/day after (3) Multifocal pneumonia: Plan: Has been getting intravenous vancomycin for pneumonia and also on prophylactic antibiotic to prevent PJP Appreciate ID input and recommendation To finish intravenous vancomycin tomorrow and possible discharge tomorrow on oral prednisone of 20 mg daily (4) Demand ischemia: (5) Sarcoidosis: (6) Restrictive lung disease: (7) ANGELES (obstructive sleep apnea): (8) Pulmonary HTN: (9) DMII (diabetes mellitus, type 2): (10) HTN (hypertension): (11) Elevated troponin: Plan Note from prior hospitalist: Patient with presumed Corynebacterium multifocal pneumonia improving with IV vancomycin Per ID recommendations, 7-day course of IV vancomycin this will go through 05/24/2024. Anticipate he can be discharged after his vancomycin dose on . Continue other supportive care Follow-up with his outpatient inspector missile for his chronic lung issues and pulmonary hypertension. Admission and Anticipated Discharge Date Admission Date: May 16, 2024 Subjective 05/23/2024 The patient was seen and examined in medical floor He has been feeling much better today with decreasing wheezing, cough and shortness of breath at rest No fever no chills and has been requiring 4 L to maintain saturation Review of Systems Review of Systems: All systems reviewed and are unremarkable except as noted below Physical Exam Physical Exam: Lying in bed with mild shortness of breath at rest Constitutional: well developed, well nourished, + ill appearing and + obese Eyes: PERRL, conjunctivae normal, anicteric sclerae ENMT: external ear and nose normal, oropharynx normal Neck: trachea midline, no thyromegaly Respiratory: no respiratory distress Auscultation: + diminished lung sounds, + crackles and + wheezes Cardiovascular: Rate/Rhythm: regular rate and regular rhythm; not tachycardic Heart Sounds: normal S1 and normal S2; no murmur Extremities: no edema Gastrointestinal (Abdomen): Inspection/Auscultation: normal bowel sounds; abdomen not distended Percussion/Palpation: abdomen soft; abdomen nontender Musculoskeletal: No acute arthritis involving any of the joint Neurologic: normal touch/pain/proprioception and moves all extremities; no focal motor deficits Lymphatic: no cervical or axillary lymphadenopathy Results & Data Results & Data Vital Signs (Past 12 Hours) Vital Signs Temp Pulse Pulse Pulse Resp BP Pulse Ox 05/23/24 08:46 73 05/23/24 08:45 05/23/24 07:57 36.4 C L 72 18 112/67 94 05/23/24 07:28 76 16 96 O2 Del Method O2 Flow Rate 05/23/24 08:46 05/23/24 08:45 Nasal Cannula 4 05/23/24 07:57 Nasal Cannula 4 05/23/24 07:28 CPAP 4 Laboratory Results [facility] 05/23/24 04:45 Creatinine 1.28 Medications Administered Current Inpatient Medications Acetaminophen (Acetaminophen 325 Mg Tab) 650 mg PO Q4H PRN PRN Reason: Pain or Fever Stop: 06/15/24 15:35 Albuterol (Albuterol 0.083% Nebu Soln 3 Ml Vial) 2.5 mg NEB Q4H PRN; Protocol PRN Reason: Shortness Of Breath Or Wheezing Stop: 06/16/24 09:48 Albuterol (Albut/Ipratrop 3mg/0.5mg Neb 3 Ml Vial) 3 ml NEB QIDR PRN; Protocol PRN Reason: Wheezing Stop: 06/15/24 15:35 Last Admin: 05/22/24 19:31 Dose: 3 ml Ascorbic Acid (Ascorbic Acid 500 Mg Tab) [facility] [place]: 06/16/24 08:59 Last Admin: 05/23/24 08:47 Dose: 500 mg Aspirin (Aspirin 81 Mg Chew) 81 mg PO [facility] Stop: 06/16/24 08:59 Last Admin: 05/23/24 08:46 Dose: 81 mg Benzonatate (Benzonatate 100 Mg Capsule) 100 mg PO TID [facility] Stop: 06/16/24 13:59 Last Admin: 05/23/24 08:46 Dose: 100 mg Cetirizine HCl (Cetirizine Hcl 10 Mg Tablet) 10 mg PO DAILY PRN PRN Reason: Allergy Symptoms Stop: 06/15/24 16:46 Citalopram Hydrobromide (Citalopram 20 Mg Tab) 20 mg PO [facility] Stop: 06/16/24 08:59 Last Admin: 05/23/24 08:45 Dose: 20 mg Dextrose (Dextrose 50% 50 Ml Syringe) 25 - 50 ml IV UD PRN; Protocol PRN Reason: Hypoglycemia Protocol Stop: 06/15/24 17:16 Digoxin (Digoxin 0.125 Mg Tab) 0.125 mg PO [facility] Stop: 06/16/24 08:59 Last Admin: 05/23/24 08:46 Dose: 0.125 mg Ferrous Sulfate (Ferrous Sulfate 325 Mg Tab) 325 mg PO [facility] Stop: 06/16/24 08:59 Last Admin: 05/23/24 08:46 Dose: 325 mg Fluticasone Propionate (Fluticasone Propionate Na Spr 16 Gm Btl) 2 sprays NILDA [facility] Stop: 06/16/24 08:59 Last Admin: 05/23/24 08:44 Dose: 2 sprays Fluticasone/Vilanterol (Fluticasone/Vilanterol 200/25mcg 14 Puffs/Inhaler) 1 puffs INH DAILY [facility] Stop: 06/16/24 08:59 Last Admin: 05/23/24 08:44 Dose: 1 puffs Folic Acid (Folic Acid 1 Mg Tab) 1 mg PO [facility] Stop: 06/16/24 08:59 Last Admin: 05/23/24 08:46 Dose: 1 mg Glucagon (Glucagon For Inj 1 Mg Vial) 1 mg SQ UD PRN; Protocol PRN Reason: Hypoglycemia Protocol Stop: 06/15/24 17:16 Glucose (Glucose 40% Gel 15 Gm Tube) 15 - 30 gm PO UD PRN; Protocol PRN Reason: Hypoglycemia Protocol Stop: 06/15/24 17:16 Glucose (Glucose 10 Tab/Tube) 4 - 8 tab PO UD PRN; Protocol PRN Reason: Hypoglycemia Protocol Stop: 06/15/24 17:16 Guaifenesin (Guaifenesin 600 Mg Tabcr) 1,200 mg PO Q12 [facility] Stop: 06/15/24 20:59 Last Admin: 05/23/24 08:46 Dose: 1,200 mg Heparin Sodium (Porcine) (Heparin Sod 5,000 Unit/0.5 Ml Vial) 5,000 units SQ Q8 [facility] Stop: 06/15/24 15:59 Last Admin: 05/23/24 05:05 Dose: 5,000 units Vancomycin HCl 1,250 mg/ (Sodium Chloride) 275 mls @ 200 mls/hr IV Q12H [facility] Stop: 05/24/24 23:59 Last Infusion: 05/23/24 06:52 Dose: Infused Insulin Aspart (Insulin Aspart Per Unit Charge) 0 units SC ACHS [facility] Stop: 06/15/24 17:29 Last Admin: 05/23/24 12:21 Dose: 3 units Losartan Potassium (Losartan Potassium 25 Mg Tab) 25 mg PO QAM [facility] Stop: 06/16/24 08:59 Last Admin: 05/23/24 08:45 Dose: 25 mg Miscellaneous (Carbohydrates For Hypoglycemia ) 15 - 30 gm PO UD PRN PRN Reason: Hypoglycemia Protocol Stop: 06/15/24 17:16 Miscellaneous Information (Vancomycin Consult Active) 1 each N/A UD PRN PRN Reason: Consult Stop: 05/24/24 23:59 Montelukast Sodium (Montelukast Sodium 10 Mg Tablet) 10 mg PO HS [facility] Stop: 06/15/24 20:59 Last Admin: 05/22/24 20:43 Dose: 10 mg Multivitamins (Multivitamin Tab) 1 tab PO DAILY [facility] Stop: 06/16/24 08:59 Last Admin: 05/23/24 08:46 Dose: 1 tab Ondansetron HCl (Ondansetron Inj 2 Mg/Ml 2 Ml Vial) 4 mg IV Q6H PRN PRN Reason: Nausea Stop: 06/15/24 15:35 Pantoprazole Sodium (Pantoprazole 40 Mg Tab) 40 mg PO QAM [facility] Stop: 06/16/24 08:59 Last Admin: 05/23/24 08:46 Dose: 40 mg Polyethylene Glycol (Polyethylene (Miralax) 17 Gm Pack) 17 gm PO DAILY PRN PRN Reason: Constipation Stop: 06/15/24 15:35 Potassium Chloride (Potassium Chloride Crtab 20 Meq Tabcr) 20 meq PO DAILY [facility] Stop: 06/19/24 14:59 Last Admin: 05/23/24 08:46 Dose: 20 meq Prednisone (Prednisone 20 Mg Tab) 40 mg PO DAILY [facility] Stop: 06/17/24 08:59 Last Admin: 05/23/24 08:45 Dose: 40 mg Rosuvastatin Calcium (Rosuvastatin Calcium 5 Mg Tab) 5 mg PO DAILY [facility] Stop: 06/16/24 08:59 Last Admin: 05/23/24 08:46 Dose: 5 mg Sodium Chloride (Sodium Chlor 7% 4 Ml Neb) 4 ml NEB BIDR [facility] Stop: 06/16/24 18:59 Last Admin: 05/23/24 07:27 Dose: 4 ml Sodium Chloride (Sodium Chloride 0.65% Na Soln 45 Ml ([place])) 2 sprays NA Q2H PRN PRN Reason: Nasal Congestion/drynes Stop: 06/16/24 09:46 Spironolactone (Spironolactone 25 Mg Tab) 25 mg PO HS [facility] Stop: 06/15/24 20:59 Last Admin: 05/22/24 20:43 Dose: 25 mg Spironolactone (Spironolactone 25 Mg Tab) 50 mg PO DAILY [facility] Stop: 06/16/24 08:59 Last Admin: 05/23/24 08:46 Dose: 50 mg Tamsulosin HCl (Tamsulosin Hcl 0.4 Mg Cap) 0.4 mg PO DAILY [facility] Stop: 06/16/24 08:59 Last Admin: 05/23/24 08:46 Dose: 0.4 mg Torsemide (Torsemide 20 Mg Tab) 80 mg PO BID [facility] Stop: 06/15/24 16:44 Last Admin: 05/23/24 08:45 Dose: 80 mg Trimethoprim/Sulfamethoxazole (Sulfamethoxazole/Trimethoprim Ds 800/160mg Tab) 1 tab PO MoWeFr@0900 [facility] Stop: 06/20/24 08:59 Last Admin: 05/23/24 08:46 Dose: 1 tab Umeclidinium [place] (Umeclidinium [place] 62.5mcg/Blister 7 Puffs/Inhaler) 1 puffs INH DAILY [facility] Stop: 06/21/24 08:59 Last Admin: 05/23/24 08:44 Dose: 1 puffs
[2024-05-23 20:44] VITALS: O2SAT 94
[2024-05-24 06:15] LABS: Basophils # (auto) 0.02 K/uL (0.00-0.20); Basophils % (auto) 0.2 %; Eosinophils # (auto) 0.14 K/uL (0.00-0.50); Eosinophils % (auto) 1.2 %; Hematocrit (blood only) 48.5 % (42.0-52.0); Hemoglobin 15.7 g/dl (14.0-18.0); Immature Granulocytes # (auto) 0.07 K/uL (0.01-0.20); Immature Granulocytes % (auto) 0.6 %; Lymphocytes # (auto) 1.45 K/uL (1.20-3.40); Lymphocytes % (auto) 12.3 %; Mean Corpuscular Hemoglobin 28.1 pg (25.0-34.0); Mean Corpuscular Hgb Conc 32.4 g/dL (32.0-36.0); Mean Corpuscular Volume 86.9 fL (80.0-100.0); Mean Platelet Volume 8.6 fL (9.4-12.4); Monocytes # (auto) 0.96 K/uL (0.11-0.59); Monocytes % (auto) 8.2 %; Neutrophils # (auto) 9.11 K/uL (1.40-6.50); Neutrophils % (auto) 77.5 %; Platelet Count 321 K/uL (130-400); RDW Coefficient of Variation 16.7 % (11.5-14.5); RDW Standard Deviation 51.8 fL (36.4-46.3); Red Blood Count 5.58 M/uL (4.70-6.10); White Blood Count 11.75 K/ul (4.8-10.8)
[2024-05-24 06:37] LABS: BUN Creatinine Ratio 21.2 (10-20); Calcium 9.7 mg/dl (8.6-10.3); Creatinine Clr Calc Pharmacy 73.4 ml/min; Magnesium 2.4 mg/dl (1.7-2.4); Phosphorus 4.1 mg/dl (2.5-4.9); Potassium 4.1 mmol/L (3.5-5.1)
[2024-05-24 07:21] VITALS: BP 115/75; RESP 18; TEMP 97.5
--- NOTE | 2024-05-24 12:11 | Hospitalist Progress Note ---
Date of Service May 24, 2024 Assessment & Plan (1) Acute on chronic hypoxic respiratory failure: Plan: Patient is 53 year old male with COPD, sarcoidosis of lung, chronic respiratory failure on chronic 4 L nasal cannula O2 at baseline, severe obstructive sleep apnea on bipap, history of chronic right-sided heart failure in setting of cor pulmonale, pulmonary HTN, history of blastomycosis with respiratory failure requiring Tracheostomy (s/p decannulation) DM II, HTN, depression, presented to ER with c/o worsening SOB. Failed outpatient Augmentin and Levaquin and 2 courses of prednisone taper; Complicated by multifocal pneumonia, restrictive lung disease, pulmonary hypertension and sarcoidosis Clinically much better and his condition has been improving with current management Appreciate pulmonary input and recommendation Will get PT and OT evaluation and possible discharge in a day or 2 Clinically much better with decreasing shortness of breath Has been ambulating in the room and in the hallway without any difficulties He will be discharged home this afternoon (2) COPD exacerbation: Plan: Has been on nebulized bronchodilators, Singulair, steroid inhaler and also oral prednisone Still has significant wheezing and crackles with decreased airflow bilaterally Seems to be at his baseline and likely discharge tomorrow/day after He will need an appointment with his truck rental manager in about 2 to 3 weeks following discharge (3) Multifocal pneumonia: Plan: Has been getting intravenous vancomycin for pneumonia and also on prophylactic antibiotic to prevent PJP Appreciate ID input and recommendation To finish intravenous vancomycin tomorrow and possible discharge tomorrow on oral prednisone of 20 mg daily he will finish the course of antibiotic this afternoon (4) Demand ischemia: (5) Sarcoidosis: (6) Restrictive lung disease: (7) ANGELES (obstructive sleep apnea): Plan: Continue to use CPAP and/or BiPAP at home as before (8) Pulmonary HTN: (9) DMII (diabetes mellitus, type 2): (10) HTN (hypertension): (11) Elevated troponin: Plan Note from prior hospitalist: Patient with presumed Corynebacterium multifocal pneumonia improving with IV vancomycin Per ID recommendations, 7-day course of IV vancomycin this will go through 05/24/2024. Anticipate he can be discharged after his vancomycin dose on . Continue other supportive care Follow-up with his outpatient truck rental manager for his chronic lung issues and pulmonary hypertension. Admission and Anticipated Discharge Date Admission Date: May 16, 2024 Subjective 05/23/2024 The patient was seen and examined in medical floor He has been feeling much better today with decreasing wheezing, cough and shortness of breath at rest No fever no chills and has been requiring 4 L to maintain saturation 05/24/2024 The patient was seen and examined in medical floor He has been much better today and does have minimal wheezing but no shortness of breath at rest He has been saturating normally on 4 L Will be discharged home this afternoon after the last dose of vancomycin IV Review of Systems Review of Systems: All systems reviewed and are unremarkable except as noted below Physical Exam Physical Exam: Lying in bed with mild shortness of breath at rest Constitutional: well developed, well nourished, + ill appearing and + obese Eyes: PERRL, conjunctivae normal, anicteric sclerae ENMT: external ear and nose normal, oropharynx normal Neck: trachea midline, no thyromegaly Respiratory: no respiratory distress Auscultation: + diminished lung sounds, + crackles and + wheezes Cardiovascular: Rate/Rhythm: regular rate and regular rhythm; not tachycardic Heart Sounds: normal S1 and normal S2; no murmur Extremities: no edema Gastrointestinal (Abdomen): Inspection/Auscultation: normal bowel sounds; abdomen not distended Percussion/Palpation: abdomen soft; abdomen nontender Musculoskeletal: No acute arthritis involving any of the joint Neurologic: normal touch/pain/proprioception and moves all extremities; no focal motor deficits Lymphatic: no cervical or axillary lymphadenopathy Results & Data Results & Data Vital Signs (Past 12 Hours) Vital Signs Temp Pulse Pulse Resp BP BP Pulse Ox 05/24/24 08:53 05/24/24 08:29 80 05/24/24 07:20 36.4 C L 83 18 115/75 94 05/24/24 07:01 77 19 94 05/24/24 01:43 125/66 O2 Del Method O2 Flow Rate 05/24/24 08:53 Nasal Cannula 4 05/24/24 08:29 05/24/24 07:20 Nasal Cannula 4 05/24/24 07:01 Nasal Cannula 4 05/24/24 01:43 Laboratory Results Short CBC 05/24/24 Range/Units 05:37 WBC 11.75 H (4.8-10.8) K/ul Hgb 15.7 (14.0-18.0) g/dl Hct 48.5 (42.0-52.0) % Plt Count 321 (130-400) K/uL BMP 05/24/24 05:37 Sodium 139 Potassium 4.1 Chloride 95 L Carbon Dioxide 40 H BUN 29 H Creatinine 1.37 Glucose 93 Calcium 9.7 Medications Administered Current Inpatient Medications Acetaminophen (Acetaminophen 325 Mg Tab) 650 mg PO Q4H PRN PRN Reason: Pain or Fever Stop: 06/15/24 15:35 Albuterol (Albuterol 0.083% Nebu Soln 3 Ml Vial) 2.5 mg NEB Q4H PRN; Protocol PRN Reason: Shortness Of Breath Or Wheezing Stop: 06/16/24 09:48 Albuterol (Albut/Ipratrop 3mg/0.5mg Neb 3 Ml Vial) 3 ml NEB QIDR PRN; Protocol PRN Reason: Wheezing Stop: 06/15/24 15:35 Last Admin: 05/24/24 07:00 Dose: 3 ml Ascorbic Acid (Ascorbic Acid 500 Mg Tab) [facility] [place] [facility]: 06/16/24 08:59 Last Admin: 05/24/24 08:29 Dose: 500 mg Aspirin (Aspirin 81 Mg Chew) 81 [facility] [place] Stop: 06/16/24 08:59 Last Admin: 05/24/24 08:32 Dose: 81 mg Benzonatate (Benzonatate 100 Mg Capsule) 100 mg PO TID [facility] Stop: 06/16/24 13:59 Last Admin: 05/24/24 08:30 Dose: 100 mg Cetirizine HCl (Cetirizine Hcl 10 Mg Tablet) 10 mg PO DAILY PRN PRN Reason: Allergy Symptoms Stop: 06/15/24 16:46 Citalopram Hydrobromide (Citalopram 20 Mg Tab) [facility] [place] Stop: 06/16/24 08:59 Last Admin: 05/24/24 08:29 Dose: 20 mg Dextrose (Dextrose 50% 50 Ml Syringe) 25 - 50 ml IV UD PRN; Protocol PRN Reason: Hypoglycemia Protocol Stop: 06/15/24 17:16 Digoxin (Digoxin 0.125 Mg Tab) 0.125 mg [facility] [place] Stop: 06/16/24 08:59 Last Admin: 05/24/24 08:29 Dose: 0.125 mg Ferrous Sulfate (Ferrous Sulfate 325 Mg Tab) 325 mg PO QA [facility] Stop: 06/16/24 08:59 Last Admin: 05/24/24 08:29 Dose: 325 mg Fluticasone Propionate (Fluticasone Propionate Na Spr 16 Gm Btl) 2 sprays NILDA QAM [facility] Stop: 06/16/24 08:59 Last Admin: 05/24/24 08:30 Dose: 2 sprays Fluticasone/Vilanterol (Fluticasone/Vilanterol 200/25mcg 14 Puffs/Inhaler) 1 puffs INH DAILY [facility] Stop: 06/16/24 08:59 Last Admin: 05/24/24 08:33 Dose: 1 puffs Folic Acid (Folic Acid 1 Mg Tab) 1 mg PO QAM [facility] Stop: 06/16/24 08:59 Last Admin: 05/24/24 08:29 Dose: 1 mg Glucagon (Glucagon For Inj 1 Mg Vial) 1 mg SQ UD PRN; Protocol PRN Reason: Hypoglycemia Protocol Stop: 06/15/24 17:16 Glucose (Glucose 40% Gel 15 Gm Tube) 15 - 30 gm PO UD PRN; Protocol PRN Reason: Hypoglycemia Protocol Stop: 06/15/24 17:16 Glucose (Glucose 10 Tab/Tube) 4 - 8 tab PO UD PRN; Protocol PRN Reason: Hypoglycemia Protocol Stop: 06/15/24 17:16 Guaifenesin (Guaifenesin 600 Mg Tabcr) 1,200 mg PO Q12 [facility] Stop: 06/15/24 20:59 Last Admin: 05/24/24 08:29 Dose: 1,200 mg Heparin Sodium (Porcine) (Heparin Sod 5,000 Unit/0.5 Ml Vial) 5,000 units SQ Q8 [facility] Stop: 06/15/24 15:59 Last Admin: 05/24/24 05:29 Dose: 5,000 units Vancomycin HCl 1,250 mg/ (Sodium Chloride) 275 mls @ 200 mls/hr IV Q12H [facility] Stop: 05/24/24 23:59 Last Infusion: 05/24/24 11:03 Dose: Infused Insulin Aspart (Insulin Aspart Per Unit Charge) 0 units SC ACHS [facility] Stop: 06/15/24 17:29 Last Admin: 05/24/24 09:01 Dose: 3 units Losartan Potassium (Losartan Potassium 25 Mg Tab) 25 mg PO QAM [facility] Stop: 06/16/24 08:59 Last Admin: 05/24/24 08:29 Dose: 25 mg Miscellaneous (Carbohydrates For Hypoglycemia ) 15 - 30 gm PO UD PRN PRN Reason: Hypoglycemia Protocol Stop: 06/15/24 17:16 Miscellaneous Information (Vancomycin Consult Active) 1 each N/A UD PRN PRN Reason: Consult Stop: 05/24/24 23:59 Montelukast Sodium (Montelukast Sodium 10 Mg Tablet) 10 mg PO HS [facility] Stop: 06/15/24 20:59 Last Admin: 05/23/24 19:56 Dose: 10 mg Multivitamins (Multivitamin Tab) 1 tab PO DAILY [facility] Stop: 06/16/24 08:59 Last Admin: 05/24/24 08:29 Dose: 1 tab Ondansetron HCl (Ondansetron Inj 2 Mg/Ml 2 Ml Vial) 4 mg IV Q6H PRN PRN Reason: Nausea Stop: 06/15/24 15:35 Pantoprazole Sodium (Pantoprazole 40 Mg Tab) 40 mg PO QAM [facility] Stop: 06/16/24 08:59 Last Admin: 05/24/24 08:29 Dose: 40 mg Polyethylene Glycol (Polyethylene (Miralax) 17 Gm Pack) 17 gm PO DAILY PRN PRN Reason: Constipation Stop: 06/15/24 15:35 Potassium Chloride (Potassium Chloride Crtab 20 Meq Tabcr) 20 meq PO DAILY [facility] Stop: 06/19/24 14:59 Last Admin: 05/24/24 08:32 Dose: 20 meq Prednisone (Prednisone 20 Mg Tab) 40 mg PO DAILY [facility] Stop: 06/17/24 08:59 Last Admin: 05/24/24 08:29 Dose: 40 mg Rosuvastatin Calcium (Rosuvastatin Calcium 5 Mg Tab) 5 mg PO DAILY [facility] Stop: 06/16/24 08:59 Last Admin: 05/24/24 08:29 Dose: 5 mg Sodium Chloride (Sodium Chlor 7% 4 Ml Neb) 4 ml NEB BIDR [facility] Stop: 06/16/24 18:59 Last Admin: 05/24/24 07:00 Dose: 4 ml Sodium Chloride (Sodium Chloride 0.65% Na Soln 45 Ml ([place])) 2 sprays NA Q2H PRN PRN Reason: Nasal Congestion/drynes Stop: 06/16/24 09:46 Spironolactone (Spironolactone 25 Mg Tab) 25 mg PO HS [facility] Stop: 06/15/24 20:59 Last Admin: 05/23/24 19:57 Dose: 25 mg Spironolactone (Spironolactone 25 Mg Tab) 50 mg PO DAILY [facility] Stop: 06/16/24 08:59 Last Admin: 05/24/24 08:28 Dose: 50 mg Tamsulosin HCl (Tamsulosin Hcl 0.4 Mg Cap) 0.4 mg PO DAILY [facility] Stop: 06/16/24 08:59 Last Admin: 05/24/24 08:29 Dose: 0.4 mg Torsemide (Torsemide 20 Mg Tab) 80 mg PO BID [facility] Stop: 06/15/24 16:44 Last Admin: 05/24/24 08:28 Dose: 80 mg Trimethoprim/Sulfamethoxazole (Sulfamethoxazole/Trimethoprim Ds 800/160mg Tab) 1 tab PO MoWeFr@0900 [facility] Stop: 06/20/24 08:59 Last Admin: 05/23/24 08:46 Dose: 1 tab Umeclidinium [place] (Umeclidinium [place] 62.5mcg/Blister 7 Puffs/Inhaler) 1 puffs INH DAILY [facility] Stop: 06/21/24 08:59 Last Admin: 05/24/24 08:30 Dose: 1 puffs
[2024-05-24 14:31] VITALS: PULSE 86
--- NOTE | 2024-05-25 08:24 | Discharge Summary ---
Date of Service May 25, 2024 Admission HPI Per Admitting Provider Patient is 53 year old male with COPD, sarcoidosis of lung, chronic respiratory failure on chronic 4 L nasal cannula O2 at baseline, severe obstructive sleep apnea on bipap, history of chronic right-sided heart failure in setting of cor pulmonale, pulmonary HTN, history of blastomycosis with respiratory failure requiring Tracheostomy (s/p decannulation) DM II, HTN, depression, presented to ER with c/o worsening SOB. Patient reports started with URI symptoms in April with nasal congestion, cough. 04/23/24 was prescribed Augmentin and 04/26/2024 prescribed prednisone taper. States symptoms persisted so on 05/06/2024 prescribed Levaquin and another prednisone taper. He felt the congestion and cough decreased some while on treatment. States since finishing Levaquin and prednisone taper feels like breathing became worse and was more short of breath, wheezing and cough worsened. States sometimes cough is productive but feels he is having a hard time getting mucus expelled. Was trying Mucinex without much relief. Patient reports usually uses nebulizer 2-3 times a day at baseline however the past 5 days has been using 6 times daily without improvement of shortness of breath. Today more SOB and feeling dizzy with respiratory distress and EMS was called. Past couple of days with chest tightness. He feels having intermittent sweats. Hasn't been taking his temperature. He states a relative had URI symptoms at the same time he had initial URI symptoms. Denies recent travel. Denies fever/chills, diaphoresis, N/V/D/C, PEDRAZA, vision changes, neck pain, CP, SOB, orthopnea, palpitations, cough, sore throat, choking, otalgia, rhinorrhea, abdominal pain, paresthesias, weakness, extremity weakness, extremity edema, rashes, urinary symptoms. Admission Exam Per Admitting Provider Vitals signs as noted above General Appearance: Chronically appearing, mild respiratory distress Head: normocephalic, Atraumatic Eyes: normal inspection, EOMI Neck: supple, Trachea midline Respiratory/Chest: Decreased coarse breath sounds, scattered rhonchi, No accessory muscle use Cardiovascular: S1, S2, No murmur, tachycardia Abdomen/GI:Soft, Non tender, Bowel sounds present Extremities/Musculoskeletal:normal inspection, 1+ edema Neurologic/Psych:AAOX3, grossly no focal neurological deficits Skin: normal color, warm Principal Diagnosis Acute on chronic hypoxic respiratory failure, COPD exacerbation, interstitial lung disease Discharge Exam Lying in bed with mild shortness of breath at rest Constitutional well developed, well nourished, + ill appearing and + obese Eyes PERRL, conjunctivae normal, anicteric sclerae ENMT external ear and nose normal, oropharynx normal Neck trachea midline, no thyromegaly Respiratory no respiratory distress Auscultation: + diminished lung sounds, + crackles and + wheezes Cardiovascular Rate/Rhythm: regular rate and regular rhythm; not tachycardic Heart Sounds: normal S1 and normal S2; no murmur Extremities: no edema Gastrointestinal (Abdomen) Inspection/Auscultation: normal bowel sounds; abdomen not distended Percussion/Palpation: abdomen soft; abdomen nontender Neurologic normal touch/pain/proprioception and moves all extremities; no focal motor deficits Lymphatic no cervical or axillary lymphadenopathy Discharge Data Allergies Allergy/AdvReac Type Severity Reaction Status Date / Time doxycycline AdvReac Severe Vomiting Verified 09/08/23 08:00 Consultations 05/16/24 13:43 ED Decision to Admit Stat 05/16/24 15:36 Consult Pulmonology Routine 05/18/24 14:58 Consult Infectious Diseases Routine Ordered Studies 05/16/24 15:36 CT chest diagnostic wo con Urgent Hospital Course (1) Acute on chronic hypoxic respiratory failure: Patient is 53 year old male with COPD, sarcoidosis of lung, chronic respiratory failure on chronic 4 L nasal cannula O2 at baseline, severe obstructive sleep apnea on bipap, history of chronic right-sided heart failure in setting of cor pulmonale, pulmonary HTN, history of blastomycosis with respiratory failure requiring Tracheostomy (s/p decannulation) DM II, HTN, depression, presented to ER with c/o worsening SOB. Failed outpatient Augmentin and Levaquin and 2 courses of prednisone taper; Complicated by multifocal pneumonia, restrictive lung disease, pulmonary hypertension and sarcoidosis Clinically much better and his condition has been improving with current management Appreciate pulmonary input and recommendation Will get PT and OT evaluation and possible discharge in a day or 2 Clinically much better with decreasing shortness of breath Has been ambulating in the room and in the hallway without any difficulties He will be discharged home this afternoon (2) COPD exacerbation: Has been on nebulized bronchodilators, Singulair, steroid inhaler and also oral prednisone Still has significant wheezing and crackles with decreased airflow bilaterally Seems to be at his baseline and likely discharge tomorrow/day after He will need an appointment with his rotary adjuster in about 2 to 3 weeks following discharge (3) Multifocal pneumonia: Has been getting intravenous vancomycin for pneumonia and also on prophylactic antibiotic to prevent PJP Appreciate ID input and recommendation To finish intravenous vancomycin tomorrow and possible discharge tomorrow on oral prednisone of 20 mg daily he will finish the course of antibiotic this afternoon (4) Demand ischemia: (5) Sarcoidosis: (6) Restrictive lung disease: (7) ANGELES (obstructive sleep apnea): Continue to use CPAP and/or BiPAP at home as before (8) Pulmonary HTN: (9) DMII (diabetes mellitus, type 2): (10) HTN (hypertension): (11) Elevated troponin: Plan Note from prior hospitalist: Patient with presumed Corynebacterium multifocal pneumonia improving with IV vancomycin Per ID recommendations, 7-day course of IV vancomycin this will go through 05/24/2024. Anticipate he can be discharged after his vancomycin dose on . Continue other supportive care Follow-up with his outpatient rotary adjuster for his chronic lung issues and pulmonary hypertension. Total Time Total Time Spent Total Time Spent (In Minutes): 40 minutes Discharge Plan Discharge Items Patient Disposition: Home - Self-Care Reason For Visit: INTERSTITIAL LUNG DISEASE Discharge Diagnosis: Acute on chronic hypoxic respiratory failure, COPD exacerbation, interstitial lung disease Condition on Discharge: Fair Activity: Resume your previous activity Non-emergency contact: Primary Care Provider Call non-emergency contact if: you have any medication questions and your symptoms worsen Follow-up/Referrals: Andrzej Downing MD [Primary Care Provider] - (Date & Time 05/28/2024 11:00 AM Provider [facility] Don Kulkarni MD [Outside Practitioners] - (Date & Time 06/19/2024 12:20 PM Provider Don Kulkarni MD Department Pulmonary Medicine, [facility] ) Diet: Heart Healthy Addtl Attending Provider Instructions: Please take precautions to avoid falls Take your medications as advised Please keep appointments with your healthcare providers You need to see your rotary adjuster in [place] within next 2 to 3 weeks-please make an appointment if it is not done already Pending Studies at Discharge: No Stand-Alone Forms: My [facility], Smoking Cessation Medications and DC Order Prescriptions: New prednisone 20 mg Tablet 20 mg PO DAILY Qty: 30 0RF Continued torsemide 20 mg tablet 80 mg PO BID Rx Instructions: 4 tab po bid citalopram 20 mg tablet 20 mg PO QAM potassium chloride 20 mEq tablet,ER particles/crystals 20 meq PO BID tamsulosin 0.4 mg capsule 0.4 mg PO DAILY losartan 25 mg tablet 25 mg PO QAM omeprazole 20 mg capsule,delayed release(DR/EC) 20 mg PO QAM folic acid 1 mg tablet 1 mg PO QAM digoxin [Digitek] 125 mcg (0.125 mg) tablet 125 mcg PO QAM metformin 500 mg tablet extended release 24 hr 1,000 mg PO QAM Jardiance 25 mg tablet 25 mg PO QAM spironolactone 25 mg tablet 25 mg PO UD Rx Instructions: Take 50mg by mouth in the morning, 25mg by mouth in the evening ferrous sulfate 325 mg (65 mg iron) Tablet 325 mg PO QAM Rx Instructions: take with breakfast aspirin [Claire Chewable Aspirin] 81 mg Tablet,Chewable 81 mg PO QAM montelukast 10 mg tablet 10 mg PO HS multivitamin Tablet 1 tab PO DAILY albuterol sulfate 2.5 mg /3 mL (0.083 %) Solution For Nebulization 2.5 mg INHALATION DAILY PRN (Reason: Dyspnea) ascorbic acid (vitamin C) [Vitamin C] 250 mg Tablet 500 mg PO QAM albuterol sulfate 90 mcg/actuation Hfa Aerosol Inhaler 2 puff INHALATION Q4H PRN (Reason: Dyspnea) fluticasone propionate 50 mcg/actuation [place],Suspension 2 spray INTRANASAL QAM Rx Instructions: administer into each nostril levocetirizine 5 mg Tablet 5 mg PO DAILY PRN (Reason: Allergy Symptoms) acetaminophen 325 mg Tablet 650 mg PO Q4H PRN (Reason: pain) Qty: 30 0RF Spiriva Respimat 2.5 mcg/actuation Mist 2 puff INHALATION DAILY fluticasone furoate-vilanterol [Breo Ellipta] 200-25 mcg/dose blister with device 1 inh INHALATION DAILY rosuvastatin 5 mg tablet 5 mg PO DAILY Ozempic 1 mg/dose (4 mg/3 mL) pen injector 4 mg SUBCUT WK Rx Instructions: Wednesdays guaifenesin [Mucinex] 600 mg tablet extended release 12hr 600 mg PO Q12 PRN (Reason: mucus) Discharge Orders: Discharge Order (Routine); Ordered 05/24/24 Ordered By: Anai Cadena/Other Patient Handouts: Managing Type 2 Diabetes, Special Foot Care for Diabetes Admission Data Admit Date/Time: 05/16/24 13:49 Attending Provider: Anai Colon Admit Provider: Carlos Durán Primary Care Provider: Andrzej Downing Other Providers: Carlos Durán; Nathan Alexander; Mc Hutchinson; Donell Khoury; Serge Carrion; Paulette López; Sandra Anderson; Anthony Sampson; Hardeep Garcia; Key Tracy; Mohit Toledo; Olegario Arita; Edy Delaney I.; Jesus Cheek II; Vero Koenig; Shabbir Dorman; Mauro Yeager.; Johnny Sharif; Jeffery Dorman Other Interventions: Discharge Summary Assessment (RN) Last Done: 05/24/24 14:30
== END 2024-05-24 15:55 | disposition home or self-care (01) | DRG 193 ==
LOC: ED 11:50 → SUATTDRO 13:49 → 2S 13:49 → 3N 05-17 13:11